=== PATIENT | female | born 1955 | race Caucasian/White ===

== ENCOUNTER 2019-10-19 09:15 | Outpatient (CLI) | payer MEDICARE, MEDICAID, SELFPAY ==
--- NOTE | 2019-10-19 12:00 | NEURO_ITS ---
Patient Number: [id number] Impression: # Complains of numbness of lower extremities and gait dysfunction. # Right peroneal neuropathy. # Decreased amplitude generally. # Needle/EMG exam revealed scarcity of motor unit potentials but no fibrillations. # Clinical correlation recommended; Neuropathic process with superimposed right peroneal neuropathy. Nerve Conduction Studies Anti Sensory Summary Table Stim Site NR Peak (ms) P-T Amp (?V) Site1 Site2 Delta-P (ms) Dist (cm) Nakul (m/s) Left Sup Fibular Anti Sensory (Ant Lat Mall) 14 cm 3.8 4.2 14 cm Ant Lat Mall 3.8 16.0 42 Right Sup Fibular Anti Sensory (Ant Lat Mall) 14 cm 4.2 14.3 14 cm Ant Lat Mall 4.2 16.0 38 Left Sural Anti Sensory (Lat Mall) Calf 4.5 2.4 Calf Lat Mall 4.5 16.0 36 Right Sural Anti Sensory (Lat Mall) Calf 4.4 11.9 Calf Lat Mall 4.4 16.0 36 Motor Summary Table Stim Site NR Onset (ms) O-P Amp (mV) Site1 Site2 Delta-0 (ms) Dist (cm) Nakul (m/s) Left Peroneal Motor (Vastus Med) Ankle 4.8 0.6 Popit Ankle 5.0 31.0 62 Popit 9.8 0.9 Right Peroneal Motor (Vastus Med) NO RESPONSE Ankle NR Popit NR Left Tibial Motor (Abd Hoff Brev) Ankle 4.8 0.2 Knee Ankle 7.6 34.0 45 Knee 12.4 0.3 Right Tibial Motor (Abd Hfof Brev) Ankle 5.1 0.7 Knee Ankle 6.6 35.0 53 Knee 11.7 4.1 F Wave Studies NR F-Lat (ms) L-R F-Lat (ms) Left Peroneal (Mrkrs) (EDB) 48.62 Right Peroneal (Mrkrs) (EDB) DISPERSED RESPONSE NR Left Tibial (Mrkrs) (Abd Hallucis) 48.83 1.17 Right Tibial (Mrkrs) (Abd Hallucis) 47.66 1.17 EMG Side Muscle Nerve Root Ins Act Fibs Amp Dur Recrt Comment Right AntTibialis Dp Br Fibular L4-5 Nml Nml Nml Nml Reduced Right Gastroc Tibial S1-2 Nml Nml Nml Nml Reduced Right Fibularis Long Sup Br Fibular L5-S1 Nml Nml Nml Nml Reduced Right Flex Dig Long Tibial L5-S2 Nml Nml Nml Nml Reduced Right Ext Dig Brev Dp Br Fibular L5, S1 Nml Nml Nml >12ms Reduced Left AntTibialis Dp Br Fibular L4-5 Nml Nml Nml Nml Reduced Left Gastroc Tibial S1-2 Nml Nml Nml Nml Reduced Left Fibularis Long Sup Br Fibular L5-S1 Nml Nml Nml Nml Reduced Left Flex Dig Long Tibial L5-S2 Nml Nml Nml Nml Reduced Left Ext Dig Brev Dp Br Fibular L5, S1 Nml Nml Nml >12ms Reduced Right QuadratusFem QuadFemoris L4-5, S1 Nml Nml Nml Nml Reduced Left QuadratusFem QuadFemoris L4-5, S1 Nml Nml Nml Nml Reduced MTDD
== END 2019-10-19 09:16 | disposition home or self-care (01) ==
PROVIDERS: PCP Internal Medicine Infectious Disease; Visit Provider Internal Medicine Infectious Disease
DX: G62.9 Polyneuropathy, unspecified (principal)
CPT/HCPCS: 95886; 95910

== ENCOUNTER 2021-01-18 02:11 | Day surgery (SDC) | payer MEDICARE, MEDICAID, SELFPAY ==
[2021-01-04 14:10] VITALS: BMI 53.8
--- NOTE | 2021-01-17 14:22 | PM.HPGS ---
History of Present Illness History of Present Illness Consent: Risks, benefits, and alternatives have been discussed and questions answered. Patient agrees to proceed with procedure. Chief complaint: hx of colon polyps Narrative: Daniel Rivera is a 65 year old female with a history of polyps here for colon cancer screening Review of Systems Review of Systems: All systems reviewed & are unremarkable except as noted in HPI and below PMFSH Past Medical History Medical History (Updated 01/18/21 @ 10:47 by Lew Santos MD) ESRD (end stage renal disease) Morbid obesity KELTON (obstructive sleep apnea) Family History Family History Other Diabetes mellitus Social History Social History Smoking packs per day: 3 Smoking cigarettes per day: 60.0 Years smoked: 20 Smoking pack-years: 60.00 Smoking status: Former smoker Tobacco type: cigarettes Alcohol intake: current Alcohol use details: socially Substance use: never Substance use type: does not use Living arrangements: with family Spiritual care concerns: No Meds Home Medications and Allergies Home Medications Medication Instructions Recorded Confirmed Type B complex with C 20-folic acid 1 cap PO DAILY 01/04/21 01/18/21 History [Virt-Caps] allopurinol 100 mg PO DAILY 01/04/21 01/18/21 History atorvastatin 80 mg PO DAILY 01/04/21 01/18/21 History cinacalcet [Sensipar] 30 mg PO DAILY 01/04/21 01/18/21 History duloxetine 30 mg PO DAILY 01/04/21 01/18/21 History escitalopram oxalate 10 mg PO DAILY 01/04/21 01/18/21 History meloxicam 7.5 mg PO DAILY 01/04/21 01/18/21 History metoprolol tartrate 25 mg PO DAILY 01/04/21 01/18/21 History midodrine 10 mg PO DAILY 01/04/21 01/18/21 History omeprazole 20 mg PO DAILY 01/04/21 01/18/21 History sevelamer carbonate 800 mg PO DAILY 01/04/21 01/18/21 History Allergies Allergy/AdvReac Type Severity Reaction Status Date / Time Sulfa (Sulfonamide Allergy Mild HIVES Verified 01/18/21 09:49 Antibiotics) ciprofloxacin Allergy Unknown Hives Verified 01/18/21 09:49 Penicillins Allergy Unknown Unknown Verified 01/18/21 09:49 Exam Const: Nutritional Appearance: obese Resp: Auscultation: clear to auscultation bilaterally Cardio: Rhythm: regular rhythm GI: Inspection: obesity GI Palp: No abdominal tenderness and Yes Soft to palpation Auscultation: normal bowel sounds Assessment and Plan Assessment and plan (1) Colon cancer screening: Code(s): Z12.11 - Encounter for screening for malignant neoplasm of colon Status: Acute Assessment and Plan: Colonoscopy with possible biopsy or polypectomy or cautery or injection of substances.
[2021-01-18 09:42] VITALS: BP 149/60; PULSE 87; RESP 20; TEMP 36.5; O2SAT 96; BMI 50.9
--- NOTE | 2021-01-18 09:53 | SUR.PREOP ---
CALL PLACED TO TYLER/CUSTODIAL SERVICES MANAGER PER PATIENT REQUEST. TYLER NOTIFIED-[id number] MINUTES. PT MADE AWARE.
[2021-01-18] MEDS: SODIUM CHLORIDE 0.9% IV 500 ML 10 ML IV CONT (10:46)
--- NOTE | 2021-01-18 10:46 | WPDANESEPPF ---
Anes - Initial Pre Proc Eval Procedure: Operation Date: 01/18/21 11:00 Proposed Procedures p Screening Colonoscopy - Vic Choi MD Date/Time: 01/18/21 10:46 Surgeon: Vic Choi MD Pre Op Diagnosis: hx of colon polyps Patient Data Age: 65 Gender: F Height: 1.42 m Weight: 103 kg Last Vital Signs Temp 36.5 C 01/18/21 09:42 Pulse 87 01/18/21 09:42 Resp 20 01/18/21 09:42 BP 149/60 H 01/18/21 09:42 Pulse Ox 96 01/18/21 09:42 Allergies Allergy/AdvReac Type Severity Reaction Status Date / Time Sulfa (Sulfonamide Allergy Mild HIVES Verified 01/18/21 09:49 Antibiotics) ciprofloxacin Allergy Unknown Hives Verified 01/18/21 09:49 Penicillins Allergy Unknown Unknown Verified 01/18/21 09:49 Home Medications Medication Instructions Recorded Confirmed Type B complex with C 20-folic acid 1 cap PO DAILY 01/04/21 01/18/21 History [Virt-Caps] allopurinol 100 mg PO DAILY 01/04/21 01/18/21 History atorvastatin 80 mg PO DAILY 01/04/21 01/18/21 History cinacalcet [Sensipar] 30 mg PO DAILY 01/04/21 01/18/21 History duloxetine 30 mg PO DAILY 01/04/21 01/18/21 History escitalopram oxalate 10 mg PO DAILY 01/04/21 01/18/21 History meloxicam 7.5 mg PO DAILY 01/04/21 01/18/21 History metoprolol tartrate 25 mg PO DAILY 01/04/21 01/18/21 History midodrine 10 mg PO DAILY 01/04/21 01/18/21 History omeprazole 20 mg PO DAILY 01/04/21 01/18/21 History sevelamer carbonate 800 mg PO DAILY 01/04/21 01/18/21 History Patient hx anesthesia problems: none Family hx anesthesia problems: none PMFSH Past Medical History Medical History (Updated 01/18/21 @ 10:47 by Lew Santos MD) ESRD (end stage renal disease) Morbid obesity KELTON (obstructive sleep apnea) Family History Family History Other Diabetes mellitus Social History Social History Smoking packs per day: 3 Smoking cigarettes per day: 60.0 Years smoked: 20 Smoking pack-years: 60.00 Smoking status: Former smoker Tobacco type: cigarettes Alcohol intake: current Alcohol use details: socially Substance use: never Substance use type: does not use Living arrangements: with family Spiritual care concerns: No Anes - Eval Final PreProcedure Day of Procedure 01/18/21 10:46 Patient weight: morbidly obese Heart: regular rate and rhythm Lungs: clear to auscultation Airway: Mallampati scale class III Neurological: alert and oriented Last oral intake: >/= 8 hours ASA classification: IV Emergent: no Anesthetic plan: proceed Anesthesia type and monitoring: general GIVS and standard monitoring Informed Consent: The patient's anesthetic plan and its attendant risks and benefits were discussed with the patient/family/POA. Questions were solicited and answers provided to the satisfaction of the patient/family/POA.
[2021-01-18 11:27] VITALS: BP 104/51; PULSE 83; RESP 20; O2SAT 100
[2021-01-18 11:37] VITALS: BP 120/62; PULSE 81; RESP 19; O2SAT 100
[2021-01-18 11:47] VITALS: BP 120/62; PULSE 80; RESP 19; O2SAT 100
== END 2021-01-18 11:56 | disposition home or self-care (01) ==
PROVIDERS: PCP Internal Medicine Infectious Disease; Visit Provider Internal Medicine Gastroenterology
PROC: 0DJD8ZZ Inspection of Lower Intestinal Tract, Via Natural or Artificial Opening Endoscopic (ICD-10-PCS; CPT 45378; principal; 2021-01-18 11:00)
DX: Z12.11 Encounter for screening for malignant neoplasm of colon (principal); K64.8 Other hemorrhoids; Z86.010 Personal history of colon polyps; N18.6 End stage renal disease; G47.33 Obstructive sleep apnea (adult) (pediatric); E66.01 Morbid (severe) obesity due to excess calories; Z68.43 Body mass index [BMI] 50.0-59.9, adult; Z87.891 Personal history of nicotine dependence
CPT/HCPCS: G0105; J2704; J7040

== ENCOUNTER 2021-06-08 15:33 | Emergency (ER) | payer MEDICARE, MEDICAID, SELFPAY ==
[2021-06-08] VITALS (7 sets, daily range): BP systolic 72–102; BP diastolic 31–66; PULSE 95–178; RESP 20–22; TEMP 37; O2SAT 95–100
--- NOTE | ~2021-06-08 | XR_ITS ---
EXAMINATION: XR chest 1V portable EXAM DATE: 06/08/2021 16:41 INDICATION: chest pain, Increased Hr Today Hx SVT,ESRD, tachycardia. TECHNIQUE: Portable AP frontal chest x-ray was obtained. Comparison is made to prior examination from 11/08/2017. FINDINGS: Bilateral subclavian stents. Cardiomegaly and pulmonary vascular congestion unchanged. No c onfluent consolidation, pneumothorax or pleural effusion suspected. There are no osseous abnormalitie s identified. IMPRESSION: 1. Cardiomegaly, pulmonary vascular congestion. Reviewed, dictated and finalized at location A. TICAL SCIENCE PROFESSOR
--- NOTE | 2021-06-08 15:50 | ECG_ITS ---
Measurements Intervals [place] Rate: 95 P: 22 VT: 160 QRS: 34 QRSD: 92 T: 36 QT: 335 QTc: 422 Interpretive Statements SINUS RHYTHM WITH SINUS ARRHYTHMIA INCOMPLETE RIGHT BUNDLE BRANCH BLOCK BORDERLINE ECG Electronically Signed On 06-08-2021 17:35:25 DOT NET DEVELOPER by Drew Maldonado D.O.
--- NOTE | 2021-06-08 15:52 | ED.ARRPALP ---
HPI - Arrhythmia/Palpitations General Chief Complaint: Arrhythmia/Palpitations Stated Complaint: Chest pain Time Seen by Provider: 06/08/21 15:50 Source: patient and family Mode of arrival: ambulatory Limitations: no limitations History of Present Illness HPI narrative: Patient presents with chest pain and difficulty breathing that started 1 hour prior to arrival to the emergency room. EKG showed SVT at 176 bpm. Patient is fully vaccinated for COVID-19, did not have the booster dose yet Related Data Home Medications Medication Instructions Recorded Confirmed Virt-Caps 1 cap PO DAILY 01/04/21 01/18/21 allopurinol 100 mg PO DAILY 01/04/21 01/18/21 atorvastatin 80 mg PO DAILY 01/04/21 01/18/21 cinacalcet [Sensipar] 30 mg PO DAILY 01/04/21 01/18/21 duloxetine 30 mg PO DAILY 01/04/21 01/18/21 escitalopram oxalate 10 mg PO DAILY 01/04/21 01/18/21 meloxicam 7.5 mg PO DAILY 01/04/21 01/18/21 metoprolol tartrate 25 mg PO DAILY 01/04/21 01/18/21 midodrine 10 mg PO DAILY 01/04/21 01/18/21 omeprazole 20 mg PO DAILY 01/04/21 01/18/21 sevelamer carbonate 800 mg PO DAILY 01/04/21 01/18/21 Allergies Allergy/AdvReac Type Severity Reaction Status Date / Time Sulfa (Sulfonamide Allergy Mild HIVES Verified 01/18/21 09:49 Antibiotics) ciprofloxacin Allergy Unknown Hives Verified 01/18/21 09:49 Penicillins Allergy Unknown Unknown Verified 01/18/21 09:49 Review of Systems Review of Systems: CONSTITUTIONAL: Denies fever, chills, or sweats. EYES: Denies visual changes, redness, or discharge. ENT: Denies rhinorrhea, congestion, sore throat, or otalgia. CARDIOVASCULAR: Denies chest pain, palpitations, or edema. RESPIRATORY: Denies cough or dyspnea. GASTROINTESTINAL: Denies abdominal pain, nausea, vomiting, or diarrhea. GENITOURINARY: Denies dysuria or hematuria. SKIN: Denies rash or itching. MUSCULOSKELETAL: Denies back pain, joint pain, or myalgia. NEUROLOGIC: Denies headache, numbness, or weakness. PSYCHIATRIC: Denies anxiety or depression. PMFSH Past Medical History Medical History ESRD (end stage renal disease) Morbid obesity KELTON (obstructive sleep apnea) Family History Family History Other Diabetes mellitus Social History Social History Smoking packs per day: 3 Smoking cigarettes per day: 60.0 Years smoked: 20 Smoking pack-years: 60.00 Smoking status: Former smoker Tobacco type: cigarettes Alcohol intake: current Alcohol use details: socially Substance use: never Substance use type: does not use Spiritual care concerns: No Exam Narrative: General appearance: Well-developed, well-nourished Skin: Normal color Head: Normocephalic, nontraumatic Eyes: Clear conjunctiva ENT: Oropharynx normal, ears normal, nose normal Neck: Supple, nontender Chest and respiratory: Airway patent, no respiratory distress, no accessory muscle use Heart: Tachycardia Abdomen: Soft, nontender, no organomegaly, quiet bowel sounds Vascular: Normal peripheral pulses, normal capillary refill. Musculoskeletal: Normal range of motion, nontender back Neurologic: Alert and oriented ?3, VET TECH is normal as tested, no gross motor deficit Course Course Emergency Course: Stable resolved. Patient received adenosine 6 mg, 12 mg and another 12 mg without any significant improvement. Subsequently received Lopressor 5 mg IV within 2 to 3 minutes converted to normal sinus rhythm, repeated EKG showed normal sinus rhythm at 76 bpm, possible right ventricular conduction delay Reevaluation(s) Reevaluation #1
[2021-06-08] MEDS: SODIUM CHLORIDE 0.9% IV 250 ML (16:10)
[2021-06-08] MEDS: ADENOSINE IV SOLN 6 MG/2 ML VIAL IV PUSH (16:11)
[2021-06-08] MEDS: ADENOSINE IV SOLN 6 MG/2 ML VIAL 12 MG IV PUSH (16:15)
[2021-06-08] MEDS: METOPROLOL TARTRATE INJ 5 MG/5 ML VIAL (16:20)
[2021-06-08 16:24] LABS: Basophils Absolute Auto 0.1 K/mm3 (0.0-0.1); Basophils Percent Auto 0.5 % (0.2-1.2); Eosinophils Absolute Auto 0.1 K/mm3 (0-0.3); Eosinophils Percent Auto 1.3 % (0-4.4); Hematocrit 35.7 % (37.0-47.0); Hemoglobin 11.6 g/dL (12.0-15.0); Immature Granulocyte Absolute 0.04 K/mm3 (0.00-0.031); Immature Granulocyte Percent A 0.4 % (0-0.5); Lymphocytes Absolute Auto 2.24 K/mm3 (0.9-3.2); Lymphocytes Percent Auto 20.2 % (18.3-44.2); Mean Corpuscular HGB Conc 32.5 g/dl (32-36); Mean Corpuscular Hemoglobin 34.3 pg (26-34); Mean Corpuscular Volume 105.6 fl (80-100); Mean Platelet Volume 9.7 fl (7.4-10.4); Monocytes Percent Auto 8.6 % (2.6-8.5); Neutrophils Absolute Auto 7.7 K/mm3 (1.3-6.7); Platelet Count Result 336 k/mm3 (150-375); Red Blood Count 3.38 M/mm3 (4.2-5.4); Red Cell Distribution Width 13.8 % (11.5-14.5); White Blood Count 11.1 K/mm3 (4.5-10.0)
[2021-06-08] MEDS: diazePAM INJ (*CRX) 10 MG/2 ML SYRINGE (16:24)
--- NOTE | 2021-06-08 16:25 | ECG_ITS ---
Measurements Intervals [place] Rate: 176 P: [place]: 0 QRS: 26 QRSD: 82 T: 45 QT: 256 QTc: 439 Interpretive Statements SUPRAVENTRICULAR TACHYCARDIA INCOMPLETE RIGHT BUNDLE BRANCH BLOCK ABNORMAL ECG Electronically Signed On 06-09-2021 13:27:37 NURSING SERVICES MANAGER by Drew Maldonado D.O.
[2021-06-08 16:36] LABS: INR 0.9; Prothrombin Time 12.4 Seconds (11.1-14.7)
[2021-06-08 16:37] LABS: Partial Thromboplastin Time 25.8 SECONDS (22.3-36.8)
[2021-06-08 16:45] LABS: NT Pro B Type Natriuretic Pept 1570 pg/mL (5-100)
[2021-06-08 16:54] LABS: Alanine Aminotransferase 20 U/L (4-35); Alkaline Phosphatase 322 U/L (38-126); Anion Gap 17 mmol/L (8-16); Aspartate Amino Transferase 37 U/L (14-36); Bilirubin,Total 0.7 mg/dL (0.2-1.3); Blood Urea Nitrogen 26 mg/dL (7-17); Calcium 9.4 mg/dL (8.4-10.2); Carbon Dioxide 28 mmol/L (22-30); Chloride 92 mmol/L (98-107); Estimated Glomerular Filt Rate 7; Glucose 147 mg/dL (65-110); Potassium 5.1 mmol/L (3.4-5.0); Sodium 137 mmol/L (137-145)
[2021-06-08 16:55] LABS: Troponin I < 0.012 ng/mL (0.000-0.034)
== END 2021-06-08 17:15 | disposition left against medical advice (07) ==
PROVIDERS: Emergency Provider Emergency Medicine; PCP Internal Medicine Infectious Disease
DX: I47.1 Supraventricular tachycardia (principal); N18.6 End stage renal disease; Z87.891 Personal history of nicotine dependence; Z99.2 Dependence on renal dialysis
CPT/HCPCS: 36415; 71045; 80053; 83880; 84484; 85025; 85610; 85730; 93005; 96361; 96374; 96375; 99284; J0153; J3360; J7050

== ENCOUNTER 2021-09-27 07:41 | Outpatient (CLI) | payer MEDICARE, MEDICAID, SELFPAY | END 2021-09-27 07:42 | disposition home or self-care (01) | LOC: ANHAUDASC 07:42 | PROVIDERS: PCP Internal Medicine Infectious Disease; Visit Provider Otolaryngology | DX: H91.91 Unspecified hearing loss, right ear (principal) | CPT/HCPCS: 92557; 92567 ==

== ENCOUNTER 2021-10-11 07:40 | Outpatient (RCR) | payer MEDICARE, MEDICAID, SELFPAY | END 2022-01-09 23:59 | disposition home or self-care (01) | LOC: ANHAUDASC 07:40 | PROVIDERS: PCP Internal Medicine Infectious Disease; Visit Provider Otolaryngology | DX: Z46.1 Encounter for fitting and adjustment of hearing aid (principal) | CPT/HCPCS: V5160; V5261 ==

== ENCOUNTER 2021-12-15 19:49 | Emergency (ER) | payer MEDICARE, MEDICAID, SELFPAY ==
--- NOTE | ~2021-12-15 | XR_ITS ---
XR chest 2V 12/15/2021 20:27 Indication: Midsternal chest pain. Procedure: AP and lateral views of the chest Comparison: 06/08/2021 Findings: Mild cardiomegaly. There are bilateral subclavian vascular stents. No focal air space disea se, pulmonary edema, pleural effusion or suspected pneumothorax. There is diffuse idiopathic skeletal hyperostosis (DISH) of the thoracic spine. Impression: 1: No acute cardiopulmonary disease. Reviewed, dictated and finalized at location A. Impression: 1: No acute cardiopulmonary disease.
--- NOTE | 2021-12-15 19:51 | ECG_ITS ---
Measurements Intervals [place] Rate: 105 P: 2 WV: 150 QRS: 24 QRSD: 82 T: 31 QT: 330 QTc: 437 Interpretive Statements SINUS TACHYCARDIA ATRIAL PREMATURE COMPLEX INCOMPLETE RIGHT BUNDLE BRANCH BLOCK LOW QRS VOLTAGE IN PRECORDIAL LEADS BASELINE ARTIFACT- I, II, III, AVR, AVL, V1, V6 BORDERLINE ECG Electronically Signed On 12-15-2021 20:39:32 CDT by Drew Maldonado D.O.
--- NOTE | 2021-12-15 19:54 | ED_ITS ---
HPI - Chest Pain General Chief Complaint: Chest Pain Stated Complaint: chest pain Time Seen by Provider: 12/15/21 19:53 Related Data Home Medications Medication Instructions Recorded Confirmed allopurinol 100 mg tablet 100 mg PO DAILY 01/04/21 09/18/21 atorvastatin 80 mg tablet 80 mg PO DAILY 01/04/21 09/18/21 duloxetine 30 mg capsule,delayed 30 mg PO DAILY 01/04/21 09/18/21 release escitalopram oxalate 10 mg tablet 10 mg PO DAILY 01/04/21 01/18/21 meloxicam 7.5 mg tablet 7.5 mg PO DAILY 01/04/21 09/18/21 metoprolol tartrate 25 mg tablet 25 mg PO DAILY 01/04/21 09/18/21 midodrine 10 mg tablet 10 mg PO DAILY 01/04/21 09/18/21 omeprazole 20 mg capsule,delayed 20 mg PO DAILY 01/04/21 09/18/21 release sevelamer carbonate 800 mg tablet 800 mg PO DAILY 01/04/21 09/18/21 vitamin B complex and vitamin C 1 cap PO DAILY 01/04/21 09/18/21 no.20-folic acid 1 mg capsule (Virt-Caps) aspirin 81 mg tablet,delayed 81 mg PO DAILY 09/18/21 09/18/21 release (Adult Aspirin Regimen) gabapentin 300 mg capsule 300 mg PO DAILY 09/18/21 09/18/21 Allergies Allergy/AdvReac Type Severity Reaction Status Date / Time Sulfa (Sulfonamide Allergy Mild HIVES Verified 09/18/21 10:12 Antibiotics) ciprofloxacin Allergy Unknown Hives Verified 09/18/21 10:12 Penicillins Allergy Unknown Unknown Verified 09/18/21 10:12 [facility] Past Medical History Medical History ESRD (end stage renal disease) Morbid obesity KELTON (obstructive sleep apnea) Family History Family History (Updated 09/18/21 @ 09:54 by Petra Machuca CMA) Father Cancer Hypertension Mother Cancer Other Diabetes mellitus Social History Social History Smoking packs per day: 3 Smoking cigarettes per day: 60.0 Years smoked: 20 Smoking pack-years: 60.00 Smoking status: Current some day smoker Tobacco type: cigarettes Alcohol intake: current Alcohol use details: socially Substance use: never Substance use type: does not use Spiritual care concerns: No Discharge Plan Discharge Prescriptions: No Action aspirin [Adult Aspirin Regimen] 81 mg tablet,delayed release (DR/EC) 81 mg PO DAILY gabapentin 300 mg capsule 300 mg PO DAILY atorvastatin 80 mg tablet 80 mg PO DAILY allopurinol 100 mg tablet 100 mg PO DAILY meloxicam 7.5 mg tablet 7.5 mg PO DAILY omeprazole 20 mg capsule,delayed release(DR/EC) 20 mg PO DAILY Virt-Caps 1 mg capsule 1 cap PO DAILY midodrine 10 mg tablet 10 mg PO DAILY escitalopram oxalate 10 mg tablet 10 mg PO DAILY metoprolol tartrate 25 mg tablet 25 mg PO DAILY duloxetine 30 mg capsule,delayed release(DR/EC) 30 mg PO DAILY sevelamer carbonate 800 mg tablet 800 mg PO DAILY Follow-up/Referrals: Rubio,Dario Jay [Primary Care Provider] -
--- NOTE | 2021-12-15 20:01 | ED.CHESTPAIN ---
HPI - Chest Pain General Chief Complaint: Chest Pain Stated Complaint: chest pain Time Seen by Provider: 12/15/21 19:53 Source: patient History of Present Illness HPI narrative: Patient presents with chest pain and palpitations. Reports symptoms started approximately 10 minutes prior to coming to the emergency room. She felt like her heart rate was racing. Reports similar episodes of A. fib with RVR she has had multiple ablations usually performed at [facility] where her cardiology team is. She has associated chest pain but this is achy, constant, no clear aggravating or relieving factors, no radiation. Prior to today's events she is in usual state of health denies any recent fevers, acute change in cough or shortness of breath denies any nausea vomiting or diarrhea. Related Data Home Medications Medication Instructions Recorded Confirmed allopurinol 100 mg tablet 100 mg PO DAILY 01/04/21 09/18/21 atorvastatin 80 mg tablet 80 mg PO DAILY 01/04/21 09/18/21 duloxetine 30 mg capsule,delayed 30 mg PO DAILY 01/04/21 09/18/21 release escitalopram oxalate 10 mg tablet 10 mg PO DAILY 01/04/21 01/18/21 meloxicam 7.5 mg tablet 7.5 mg PO DAILY 01/04/21 09/18/21 metoprolol tartrate 25 mg tablet 25 mg PO DAILY 01/04/21 09/18/21 midodrine 10 mg tablet 10 mg PO DAILY 01/04/21 09/18/21 omeprazole 20 mg capsule,delayed 20 mg PO DAILY 01/04/21 09/18/21 release sevelamer carbonate 800 mg tablet 800 mg PO DAILY 01/04/21 09/18/21 vitamin B complex and vitamin C 1 cap PO DAILY 01/04/21 09/18/21 no.20-folic acid 1 mg capsule (Virt-Caps) aspirin 81 mg tablet,delayed 81 mg PO DAILY 09/18/21 09/18/21 release (Adult Aspirin Regimen) gabapentin 300 mg capsule 300 mg PO DAILY 09/18/21 09/18/21 cephalexin 500 mg capsule cap 12/15/21 Allergies Allergy/AdvReac Type Severity Reaction Status Date / Time Sulfa (Sulfonamide Allergy Mild HIVES Verified 12/15/21 20:08 Antibiotics) ciprofloxacin Allergy Unknown Hives Verified 12/15/21 20:08 Penicillins Allergy Unknown Unknown Verified 12/15/21 20:08 Review of Systems Review of Systems: CONSTITUTIONAL: Denies fever, chills, or sweats. EYES: Denies visual changes, redness, or discharge. ENT: Denies rhinorrhea, congestion, sore throat, or otalgia. CARDIOVASCULAR: Reports chest pain and palpitations RESPIRATORY: Denies cough or acute change in dyspnea. GASTROINTESTINAL: Denies abdominal pain, nausea, vomiting, or diarrhea. GENITOURINARY: Denies dysuria or hematuria. SKIN: Denies rash or itching. MUSCULOSKELETAL: Denies back pain, joint pain, or myalgia. NEUROLOGIC: Denies headache, numbness, dizziness, or weakness. PSYCHIATRIC: Denies anxiety or depression. All systems reviewed & are unremarkable except as noted in HPI and below PMFSH Past Medical History Medical History ESRD (end stage renal disease) Morbid obesity KELTON (obstructive sleep apnea) Family History Family History Father Cancer Hypertension Mother Cancer Other Diabetes mellitus Social History Social History Smoking packs per day: 3 Smoking cigarettes per day: 60.0 Years smoked: 20 Smoking pack-years: 60.00 Smoking status: Current some day smoker Tobacco type: cigarettes Alcohol intake: current Alcohol use details: socially Substance use: never Substance use type: does not use Spiritual care concerns: No Exam Narrative: GENERAL: Well-appearing, well-nourished, and in no acute distress. HEAD: Normocephalic, atraumatic. EYES: PERRLA and EOMI. ENT: Nares clear, no rhinorrhea or epistaxis. Mucous membranes moist. NECK: Supple. No masses. No JVD CHEST: Mild wheezing and rhonchi HEART: Regular r tachycardia. No murmur heard. Normal peripheral pulses. ABDOMEN: Soft, nontender, nondistended, normal active bowel sound
[2021-12-15 20:04] VITALS: BP 125/52; PULSE 103; RESP 20; TEMP 36.9; O2SAT 98
[2021-12-15 20:12] VITALS: PULSE 101
[2021-12-15 20:28] LABS: Alanine Aminotransferase 27 U/L (6-35); Albumin Level 4.6 g/dL (3.5-5.1); Alkaline Phosphatase 334 U/L (38-126); Anion Gap 11 mmol/L (8-16); Aspartate Amino Transferase 31 U/L (14-36); Bilirubin,Total 0.4 mg/dL (0.2-1.3); Blood Urea Nitrogen 73 mg/dL (7-17); Calcium 8.7 mg/dL (8.4-10.2); Carbon Dioxide 32 mmol/L (22-30); Chloride 93 mmol/L (98-107); Estimated Glomerular Filt Rate 5; Glucose 161 mg/dL (65-110); Lipase 256 U/L (23-300); Potassium 4.9 mmol/L (3.4-5.0); Sodium 136 mmol/L (137-145)
[2021-12-15 20:30] LABS: Basophils Absolute Auto 0.1 K/mm3 (0.0-0.1); Basophils Percent Auto 0.7 % (0.2-1.2); Eosinophils Absolute Auto 0.2 K/mm3 (0-0.3); Eosinophils Percent Auto 1.7 % (0-4.4); Hematocrit 30.6 % (37.0-47.0); Hemoglobin 10.1 g/dL (12.0-15.0); Immature Granulocyte Absolute 0.03 K/mm3 (0.00-0.031); Immature Granulocyte Percent A 0.3 % (0-0.5); Lymphocytes Absolute Auto 1.81 K/mm3 (0.9-3.2); Lymphocytes Percent Auto 20.1 % (18.3-44.2); Mean Corpuscular Hemoglobin 33.9 pg (26-34); Mean Corpuscular Volume 102.7 fl (80-100); Monocytes Percent Auto 11.4 % (2.6-8.5); Neutrophils Absolute Auto 5.9 K/mm3 (1.3-6.7); Neutrophils Percent Auto 65.8 % (45.5-73.1); Platelet Count Result 201 k/mm3 (150-375); Red Blood Count 2.98 M/mm3 (4.2-5.4); Red Cell Distribution Width 14.9 % (11.5-14.5)
[2021-12-15 20:33] LABS: INR 1.3; Prothrombin Time 15.2 Seconds (11.1-14.7)
[2021-12-15 20:34] LABS: Partial Thromboplastin Time 29.1 SECONDS (22.3-36.8)
[2021-12-15 20:40] LABS: Troponin I 0.028 ng/mL (0.000-0.034)
[2021-12-15] MEDS: SODIUM CHLORIDE 0.9% IV 500 ML 999 ML IV CONT (21:22)
--- NOTE | 2021-12-15 23:14 | PC.NURSE ---
Assuming care of pt.
[2021-12-15 23:50] VITALS: BP 125/78; PULSE 97; RESP 18; O2SAT 100
== END 2021-12-15 23:51 | disposition home or self-care (01) ==
PROVIDERS: Emergency Provider Emergency Medicine; PCP Internal Medicine Infectious Disease
DX: R00.2 Palpitations (principal); R07.9 Chest pain, unspecified; N18.6 End stage renal disease; G47.33 Obstructive sleep apnea (adult) (pediatric); E66.01 Morbid (severe) obesity due to excess calories; Z68.43 Body mass index [BMI] 50.0-59.9, adult; F17.210 Nicotine dependence, cigarettes, uncomplicated; R00.0 Tachycardia, unspecified; I49.1 Atrial premature depolarization; I45.10 Unspecified right bundle-branch block
CPT/HCPCS: 36415; 71046; 80053; 83690; 84484; 85025; 85610; 85730; 93005; 96360; 99284; J7040

== ENCOUNTER 2023-05-05 05:28 | Inpatient (IN) | payer MEDICARE, MEDICAID, SELFPAY ==
[2023-05-05] VITALS (39 sets, daily range): BP systolic 89–148; BP diastolic 21–133; PULSE 73–125; RESP 14–32; TEMP 36–37; O2SAT 84–98; BMI 48.4; BMI 47.9
--- NOTE | ~2023-05-05 | XR_ITS ---
XR chest 1V portable 05/05/2023 09:21 Indication: Hypoxia. Procedure: AP portable chest Comparison: Comparison to multiple prior studies sequentially, with oldest reviewed study dated 02/2022. Findings: Cardiomegaly. Mild interstitial edema. No pleural effusion or pneumothorax. Bilateral subcl braden stents stable. New right subclavian stent overlying the scapula. No acute osseous abnormality. Impression: 1: Cardiomegaly with mild interstitial edema. Reviewed, dictated and finalized at location B. ASSISTANT Impression: 1: Cardiomegaly with mild interstitial edema.
--- NOTE | ~2023-05-05 | CT_ITS ---
Non-contrast CT scan of the Abdomen and Pelvis Clinical indication: Abdominal pain Technique: 2.5 mm axial scans were obtained through the abdomen and pelvis without intravenous or or al contrast. Dose reduction technique was used on this scan by utilizing automated exposure control a nd iterative reconstruction technique. The dose-length product (DLP) was 1181.84 mGy-cm. Findings: Images through the lung bases reveal no abnormalities. The liver, spleen, pancreas, and adrenals appear normal. Cholecystectomy clips are present. Kidneys a re relatively atrophic bilaterally, with small bilateral nonobstructing renal stones. No hydronephros is. There are atherosclerotic calcifications of the aorta. There is no evidence of bowel obstruction. There is a prior surgery to right colonic region. No absce ss or free air. Images through the pelvis were performed. There is no evidence of ascites or lymphadenopathy. Urinary bladder unremarkable. No pelvic mass seen. Impression: Bilateral nonobstructing nephrolithiasis with relatively atrophic kidneys. No other significant findings. Reviewed, dictated and finalized at [facility]. LE SCHOOL DIRECTOR Impression: Bilateral nonobstructing nephrolithiasis with relatively atrophic kidneys. No other significant findings.
--- NOTE | 2023-05-05 05:37 | ECG_ITS ---
Measurements Intervals [place] Rate: 83 P: 35 DC: 248 QRS: -51 QRSD: 133 T: 52 QT: 386 QTc: 455 Interpretive Statements SINUS RHYTHM WITH FIRST DEGREE AV BLOCK LEFT AXIS DEVIATION INTRAVENTRICULAR CONDUCTION DELAY POOR R WAVE PROGRESSION, ANTERIOR LEADS CONSIDER INFERIOR INFARCT, AGE INDETERMINATE ABNORMAL ECG COMPARED TO ECG 05/05/2023 05:37:08 NO SIGNIFICANT CHANGES Electronically Signed On 05-05-2023 9:57:09 SUPERVISOR OF OPERATIONS by Drew Maldonado D.O.
--- NOTE | 2023-05-05 06:15 | ED.GENADULT ---
HPI - General Adult General Chief complaint: Weakness <Derik Hernandez MD - Last Filed: 05/05/23 06:26> Stated complaint: diarrhea yest, weak today, missed dialysis <Derik Hernandez MD - Last Filed: 05/05/23 06:26> Time Seen by Provider: 05/05/23 05:37 <Derik Hernandez MD - Last Filed: 05/05/23 06:26> History of Present Illness HPI narrative: patient is a 68-year-old female who presents emerged department with chief complaint of generalized weakness. Patient reports he has history of end-stage renal disease on dialysis Friday reports that she started having diarrhea yesterday and started feeling very weak the patient reports that today she was unable to get up and walk to her [employer] transport van to go to her dialysis and her dialysis transport individual recommended that she seen the patient reports that called EMS and was transported to the emergency department patient does state that she has had some <Derik Hernandez MD - Last Filed: 05/05/23 06:26> Related Data Home medications: Home Medications Medication Instructions Recorded Confirmed allopurinol 100 mg tablet 100 mg PO DAILY 01/04/21 09/18/21 atorvastatin 80 mg tablet 80 mg PO DAILY 01/04/21 09/18/21 duloxetine 30 mg capsule,delayed 30 mg PO DAILY 01/04/21 09/18/21 release escitalopram oxalate 10 mg tablet 10 mg PO DAILY 01/04/21 01/18/21 meloxicam 7.5 mg tablet 7.5 mg PO DAILY 01/04/21 09/18/21 metoprolol tartrate 25 mg tablet 25 mg PO DAILY 01/04/21 09/18/21 midodrine 10 mg tablet 10 mg PO DAILY 01/04/21 09/18/21 omeprazole 20 mg capsule,delayed 20 mg PO DAILY 01/04/21 09/18/21 release sevelamer carbonate 800 mg tablet 800 mg PO DAILY 01/04/21 09/18/21 vitamin B complex and vitamin C 1 cap PO DAILY 01/04/21 09/18/21 no.20-folic acid 1 mg capsule (Virt-Caps) aspirin 81 mg tablet,delayed 81 mg PO DAILY 09/18/21 09/18/21 release (Adult Aspirin Regimen) gabapentin 300 mg capsule 300 mg PO DAILY 09/18/21 09/18/21 cephalexin 500 mg capsule cap 12/15/21 <Derik Hernandez MD - Last Filed: 05/05/23 06:26> Allergies/adverse reactions: Allergies Allergy/AdvReac Type Severity Reaction Status Date / Time Sulfa (Sulfonamide Allergy Mild HIVES Verified 05/05/23 05:42 Antibiotics) ciprofloxacin Allergy Unknown Hives Verified 05/05/23 05:42 Penicillins Allergy Unknown Unknown Verified 05/05/23 05:42 <Derik Hernandez MD - Last Filed: 05/05/23 06:26> Review of Systems Review of Systems: A 10 system review of systems was completed on the patient and is negative except for what is stated in the HPI. Nursing and ancillary documentation was reviewed. <Derik Hernandez MD - Last Filed: 05/05/23 06:26> PMFSH Past Medical History Medical History: Medical History ESRD (end stage renal disease) Morbid obesity KEL[place] (obstructive sleep apnea) <Derik Hernandez MD - Last Filed: 05/05/23 06:26> Family History Family History: Family History Father Cancer Hypertension Mother Cancer Other Diabetes mellitus <Derik Hernandez MD - Last Filed: 05/05/23 06:26> Social History Social History: Social History Smoking packs per day: 3 Smoking cigarettes per day: 60.0 Years smoked: 20 Smoking pack-years: 60.00 Smoking status: Current some day smoker Tobacco type: cigarettes Alcohol intake: current Alcohol use details: socially Substance use: never Substance use type: does not use Living arrangements: with family Spiritual care concerns: No <Derik Hernandez MD - Last Filed: 05/05/23 06:26> Exam Narrative: GENERAL: Well-appearing, well-nourished, and in no acute distress. HEAD: Normocephali
[2023-05-05 06:16] LABS: Basophils Percent Auto 0.3 % (0.2-1.2); Eosinophils Absolute Auto 0.3 K/mm3 (0-0.3); Eosinophils Percent Auto 2.1 % (0-4.4); Hemoglobin 11.9 g/dL (12.0-15.0); Immature Granulocyte Absolute 0.05 K/mm3 (0.00-0.031); Immature Granulocyte Percent A 0.4 % (0-0.5); Lymphocytes Absolute Auto 1.54 K/mm3 (0.9-3.2); Lymphocytes Percent Auto 11.8 % (18.3-44.2); Mean Corpuscular HGB Conc 33.1 g/dl (32-36); Mean Corpuscular Hemoglobin 32.7 pg (26-34); Mean Corpuscular Volume 98.9 fl (80-100); Mean Platelet Volume 9.9 fl (7.4-10.4); Monocytes Percent Auto 7.4 % (2.6-8.5); Neutrophils Absolute Auto 10.2 K/mm3 (1.3-6.7); Platelet Count Result 296 k/mm3 (150-375); Red Blood Count 3.64 M/mm3 (4.2-5.4); Red Cell Distribution Width 15.6 % (11.5-14.5); White Blood Count 13.1 K/mm3 (4.5-10.0)
[2023-05-05 06:40] LABS: Lactic Acid Reflex 2.1 mmol/L (0.7-2.0)
[2023-05-05 06:57] LABS: INR 0.9; Prothrombin Time 12.7 Seconds (11.1-14.7)
[2023-05-05 07:15] LABS: INR 0.9; Prothrombin Time 12.6 Seconds (11.1-14.7)
[2023-05-05 07:16] LABS: Partial Thromboplastin Time 27.2 SECONDS (22.3-36.8)
[2023-05-05] MEDS: SODIUM CHLORIDE 0.9% IV 500 ML 999 ML IV CONT (07:37)
[2023-05-05 08:05] LABS: Alanine Aminotransferase 24 U/L (6-35); Albumin Level 4.3 g/dL (3.5-5.1); Alkaline Phosphatase 360 U/L (38-126); Anion Gap 16 mmol/L (8-16); Aspartate Amino Transferase 36 U/L (14-36); Bilirubin,Total 0.8 mg/dL (0.2-1.3); Blood Urea Nitrogen 74 mg/dL (7-17); Calcium 10.3 mg/dL (8.4-10.2); Carbon Dioxide 26 mmol/L (22-30); Chloride 91 mmol/L (98-107); Estimated Glomerular Filt Rate 3; Glucose 97 mg/dL (65-110); Lipase 143 U/L (23-300)
[2023-05-05 08:08] LABS: Sodium 133 mmol/L (137-145)
[2023-05-05 08:09] LABS: Potassium 8.1 mmol/L (3.4-5.0)
[2023-05-05 08:17] LABS: Troponin I 0.086 ng/mL (0.000-0.034)
[2023-05-05] MEDS: SODIUM BICARBONATE 8.4% 50 MEQ/50 ML SYRINGE IV PUSH (08:29)
[2023-05-05] MEDS: SODIUM POLYSTYRENE SULFONONATE 15 GM/60 ML BTL 30 GM PO (08:29)
[2023-05-05] MEDS: INSULIN HUMAN REGULAR (*BKC) 100 UNITS/ML IV PUSH (08:29)
[2023-05-05] MEDS: DEXTROSE 50% 25 GM/50 ML SYRINGE IV PUSH (08:29)
--- NOTE | 2023-05-05 08:29 | ECG_ITS ---
Measurements Intervals [place] Rate: 77 P: 9 W[place]: 192 QRS: -38 QRSD: 133 T: 48 QT: 379 QTc: 431 Interpretive Statements SINUS RHYTHM WITH FIRST DEGREE AV BLOCK LEFT AXIS DEVIATION INTRAVENTRICULAR CONDUCTION DELAY POOR R WAVE PROGRESSION, ANTERIOR LEADS CONSIDER INFERIOR INFARCT, AGE INDETERMINATE BASELINE ARTIFACT- I, II, AVR ABNORMAL ECG COMPARED TO ECG 12/15/2021 20:01:06 SINUS RHYTHM NOW PRESENT LEFT-AXIS DEVIATION NOW PRESENT INTRAVENTRICULAR CONDUCTION DELAY NOW PRESENT Electronically Signed On 05-05-2023 8:32:20 PRESCHOOL HEAD TEACHER by Drew Maldonado D.O.
--- NOTE | 2023-05-05 08:47 | PC.NURSE ---
Pt complaining of 7/10 chest pain. aware.
[2023-05-05] MEDS: MORPHINE SULFATE (*CRX) 2 MG/ML INJ IV PUSH (08:51)
[2023-05-05] MEDS: ALBUTEROL SULFATE NEB 2.5 MG/3 ML INH 5 MG INHALATION (09:00)
[2023-05-05 09:32] LABS: Reflex Lactic Acid Yes or No Add Lactic
[2023-05-05 09:54] LABS: Lactic Acid 1.5 mmol/L (0.7-2.0)
[2023-05-05 10:00] LABS: Anion Gap 16 mmol/L (8-16); Blood Urea Nitrogen 75 mg/dL (7-17); Calcium 10.1 mg/dL (8.4-10.2); Carbon Dioxide 27 mmol/L (22-30); Chloride 92 mmol/L (98-107); Estimated Glomerular Filt Rate 4; Glucose 103 mg/dL (65-110); Potassium 7.1 mmol/L (3.4-5.0); Sodium 135 mmol/L (137-145)
[2023-05-05 10:09] LABS: Troponin I 0.115 ng/mL (0.000-0.034)
[2023-05-05 10:38] LABS: Hepatitis B Surface Anti Res Positive
[2023-05-05] MEDS: ALBUMIN HUMAN 25% 12.5 GM/50ML 50 ML IVPB ×2 (10:46→12:37)
--- NOTE | 2023-05-05 10:50 | PM.CNNEP ---
Assessment and Plan Assessment and plan (1) End stage renal disease: Code(s): N18.6 - End stage renal disease Status: Chronic Assessment and Plan: HD today continue Fri/Fri/Friday outpatient dialysis schedule follow electrolytes, volume status, and clearance (2) Hyperkalemia: Code(s): E87.5 - Hyperkalemia Status: Acute Assessment and Plan: s/p medical management dialysis today follow repeat K+ levels not a usual problem for the patient from discussion with outpatient dialysis unit (3) Elevated troponin: Code(s): R79.89 - Other specified abnormal findings of blood chemistry Status: Acute Assessment and Plan: noted since admission no complaints of chest pain EKG noted check Echo consider Cardiology consultation (4) Generalized weakness: Code(s): R53.1 - Weakness Status: Acute Assessment and Plan: suspect due to a combo of high K+ and possible viral illness follow-up on viral testing supportive care (5) Obstructive sleep apnea: Code(s): G47.33 - Obstructive sleep apnea (adult) (pediatric) Status: Acute Assessment and Plan: continue CPAP use (6) Anemia: Code(s): D64.9 - Anemia, unspecified Status: Chronic Assessment and Plan: due to ESRD Epogen with HD follow H/H I will continue to follow the patient with you while she remains hospitalized and make further recommendations as needed. Thank you for allowing me to participate in the care of this patient. History of Present Illness Reason for Consult Consult date: 05/05/23 Reason for consult: end stage renal disease and hyperkalemia Chief Complaint Chief complaint: Hyperkalemia and Elevated Troponin History of Present Illness Narrative: The patient is a 68-year-old female with a past medical history as outlined below who presented to [facility] Emergency room via EMS for further evaluation of generalized weakness. Following breakfast yesterday, the patient started feeling unwell with abdominal cramping and sudden onset of diarrhea. She apparently had 6-7 stools over the course of the day. Eventually, the symptoms seemed to yanick and she was able to go to sleep but had to wake up several times during the night due to the diarrhea. By the time she folic at up in the morning to go for her scheduled dialysis treatment, she reported feeling extremely weak and lightheaded with associated fatigue and generalized muscle aches and arthritis. When her medical transport car came to take her to dialysis, she could barely get out side due to the severity of her weakness and fatigue. She called EMS and was subsequent transported to the emergency room for further assessment. Workup and evaluation in the emergency room demonstrated the patient to be hemodynamically stable and in no acute distress. She was noted to be hypoxic on room air which improved with application of supplemental oxygen. Routine blood tests were significant for labs consistent with her known history of end-stage renal disease with wrist relative stability of her hemoglobin hematocrit, mildly elevated white blood count of 13.1, but with critical electrolyte abnormality of hyperkalemia with potassium of 8.1. Subsequent CT scan of the abdomen pelvis demonstrated no acute findings and her chest x-ray showed cardiomegaly with mild interstitial edema. She received medical management for her hyperkalemia and was subsequently admitted to the hospital for emergent dialysis. On further discussion with the patient, she has never had issues or problems with severe hyperkalemia and is compliant with her dialysis treatments so she was somewhat surprised by this laboratory finding. Renal consultation was requested due to her end-stage renal disease and hyperkalemia. The patient normally dialyzes on a Friday, Friday, Friday schedule at [facility]. As mentioned a
[2023-05-05 10:59] LABS: Hepatitis B Surface Antigen Negative (Negative)
[2023-05-05 11:53] LABS: Anion Gap 14 mmol/L (8-16); Blood Urea Nitrogen 51 mg/dL (7-17); Calcium 9.8 mg/dL (8.4-10.2); Carbon Dioxide 28 mmol/L (22-30); Chloride 94 mmol/L (98-107); Estimated Glomerular Filt Rate 5; Glucose 100 mg/dL (65-110); Potassium 5.3 mmol/L (3.4-5.0); Sodium 136 mmol/L (137-145)
[2023-05-05] MEDS: ACETAMINOPHEN 325 MG TABLET 650 MG PO ×2 (12:58→20:26)
--- NOTE | 2023-05-05 13:14 | PM.IMHP ---
H&P: HPI History of Present Illness Date/Time: 05/05/23 14:45 Chief Complaint: Weakness. Narrative: This is a 68-year-old female with end stage renal disease on hemodialysis, diet-controlled diabetes, hyperlipidemia, paroxysmal atrial fibrillation status post cardiac ablation, and obstructive sleep apnea who presented to the emergency department via EMS from home for evaluation of weakness. The patient provides the following history. She had oat for breakfast yesterday and within several hours she started to feel unwell with diffuse abdominal cramping and she reports having 6 to 7 loose, yellow stools throughout the evening. She was able to fall sleep at about 21:00 but awoke several times to have diarrhea. This morning she got up early for dialysis and she reports feeling extremely weak and lightheaded with aching pain in both of her shoulders so she sat down on the recliner until the medical car came. She could barely make out side due to weakness and she was instead directed to the emergency department. She was afebrile on arrival with stable blood pressures. SpO2 was as low as 84% and she was started on 5 L nasal cannula. Labs were significant for WBC count of 13.1, hemoglobin 11.9, sodium 133, potassium 8.1 BUN 74, creatinine 10.90, lactic acid 2.1, calcium 10.3, troponin 0.086. CT of the abdomen and pelvis showed no acute findings. Chest x-ray showed cardiomegaly with mild interstitial edema. She was immediately treated for hyperkalemia and she is now status post dialysis. She has never had issues with hyperkalemia and this came as a surprise to her. She is not on potassium supplementations and she has not had any recent change in medications or diet. She has not had exertional chest pain or pleuritic pain. She has mild shortness of breath but that has improved since dialysis. She denies calf pain and lower extremity edema. No vomiting. No melena or hematochezia. She denies sick contacts. Review of Systems Review of Systems: Twelve systems were reviewed. Reports having a low-grade fever. She has had a slight cough which is rarely productive recently. Her throat has been a bit sore when swallowing. She tested negative for COVID, RSV, influenza, and strep today. Except as documented, all other systems were reviewed and are negative. [facility] Past Medical History Medical History (Updated 05/05/23 @ 15:11 by Kami Del Rio PA-C) Anxiety and depression Arthritis Diet-controlled type 2 diabetes mellitus End-stage renal disease on hemodialysis Hypertension Morbid obesity Obstructive sleep apnea Paroxysmal atrial fibrillation Surgical History Surgical History (Updated 05/05/23 @ 15:07 by Kami Del Rio PA-C) History of cardiac radiofrequency ablation History of cataract extraction History of section History of cholecystectomy History of colonoscopy with polypectomy History of hysterectomy History of tonsillectomy Family History Family History Father Cancer Hypertension Mother Cancer Other Diabetes mellitus Social History Social History (Updated 05/05/23 @ 15:08 by Kami Del Rio PA-C) Social History: Surrogate medical decision maker: Zee Monte, sibling. Code status: Full code. Smoking packs per day: 3 Smoking cigarettes per day: 60.0 Years smoked: 25 Smoking pack-years: 75.00 Smoking status: Former smoker Tobacco type: cigarettes Alcohol intake: current Drinks per week: 1 Alcohol use details: Social alcohol use. Substance use: never Substance use type: does not use Lack of Transportation: No Lack of Food: Never True Current Housing: I Have Housing Concerned About Future Housing: No Difficulty Paying Gas/Electric Bills: No Difficulty Paying for Meds: No Currently Unemployed: No Education: Grade School Difficulty w/ Childcare or Family Care: No Living arrangements: with family Spiritua
--- NOTE | 2023-05-05 14:14 | PM.DS ---
DS: Summary Time Spent with Patient Time attestation: Total time spent providing and/or coordinating discharge services: DS: Data Data Completed and Pending Labs on day of discharge: Labs from last 24 hours 05/05/23 05/05/23 05/05/23 11:04 09:35 09:31 WBC RBC Hgb Hct MCV MCH MCHC RDW Plt Count MPV Immature Gran % (Auto) Neut % (Auto) Lymph % (Auto) [place] % (Auto) Eos % (Auto) Baso % (Auto) Lymph # (Auto) [place] # (Auto) Eos # (Auto) Baso # (Auto) Abs Immat Gran (auto) Absolute Neuts (auto) Absolute Nucleated RBC Nucleated RBC % PT INR APTT Sodium 136 L 135 L Potassium 5.3 H 7.1 H* Chloride 94 L 92 L Carbon Dioxide 28 27 Anion Gap 14 16 BUN 51 H D 75 H Creatinine 8.00 H 10.60 H Estim Creat Clear Calc Not Reportable Not Reportable Estimated GFR 5 L 4 L Glucose 100 103 Lactic Acid 1.5 Calcium 9.8 10.1 Magnesium Total Bilirubin AST ALT Alkaline Phosphatase Troponin I 0.115 H* D Total Protein Albumin Lipase Hep Bs Antigen Negative Hep Bs Antibody Positive 05/05/23 05/05/23 05/05/23 06:57 06:09 06:08 WBC 13.1 H RBC 3.64 L Hgb 11.9 L Hct 36.0 L MCV 98.9 MCH 32.7 MCHC 33.1 RDW 15.6 H Plt Count 296 MPV 9.9 Immature Gran % (Auto) 0.4 Neut % (Auto) 78.0 H Lymph % (Auto) 11.8 L [place] % (Auto) 7.4 Eos % (Auto) 2.1 Baso % (Auto) 0.3 Lymph # (Auto) 1.54 [place] # (Auto) 1.0 H Eos # (Auto) 0.3 Baso # (Auto) 0.0 Abs Immat Gran (auto) 0.05 H Absolute Neuts (auto) 10.2 H Absolute Nucleated RBC 0.0 Nucleated RBC % 0.0 PT 12.6 12.7 INR 0.9 0.9 APTT 27.2 Sodium 133 L Potassium 8.1 H* Chloride 91 L Carbon Dioxide 26 Anion Gap 16 BUN 74 H Creatinine 10.90 H Estim Creat Clear Calc Not Reportable Estimated GFR 3 L Glucose 97 Lactic Acid 2.1 H Calcium 10.3 H Magnesium 2.0 Total Bilirubin 0.8 AST 36 ALT 24 Alkaline Phosphatase 360 H Troponin I 0.086 H* Total Protein 8.0 Albumin 4.3 Lipase 143 Hep Bs Antigen Hep Bs Antibody Discharge Plan Discharge Consulting providers: Giovanny Denson Discharge Medications: No Action aspirin [Adult Aspirin Regimen] 81 mg tablet,delayed release (DR/EC) 81 mg PO DAILY gabapentin 300 mg capsule 300 mg PO DAILY atorvastatin 80 mg tablet 80 mg PO DAILY allopurinol 100 mg tablet 100 mg PO DAILY meloxicam 7.5 mg tablet 7.5 mg PO DAILY omeprazole 20 mg capsule,delayed release(DR/EC) 20 mg PO DAILY Virt-Caps 1 mg capsule 1 cap PO DAILY midodrine 10 mg tablet 10 mg PO DAILY escitalopram oxalate 10 mg tablet 10 mg PO DAILY metoprolol tartrate 25 mg tablet 25 mg PO DAILY duloxetine 30 mg capsule,delayed release(DR/EC) 30 mg PO DAILY sevelamer carbonate 800 mg tablet 800 mg PO DAILY cephalexin 500 mg capsule Date of admission: 05/05/23 09:04 Primary Care Provider: Rubio,Pierre Admitting Provider: Haroon Pineda Attending physician on admission: Haroon Pineda Condition: Serious
--- NOTE | 2023-05-05 15:07 | ADMGEN ---
This patient, Daniel Rivera, was admitted to IMU Room 202-01 @ 1430. Patient oriented to hospital policies and general routines including ID bracelet, bed and alarms, visiting hours, pain management, procedures, bathroom and other care routines, personal items, smoking policy, room service/diet, and visiting hours. Information on how to activate the Rapid Response Team has been discussed. Patient are encouraged to report perceived risks to care and to ask questions if they do not understand what they are told or what they should do.
--- NOTE | 2023-05-05 15:11 | ECHO_ITS ---
Patient Info Name: Daniel Rivera Age: 68 years : 1955 Gender: Female Ht: 49 in Wt: 237 lbs BSA: 2.03 m2 HR: 85 bpm BP: 133 / 109 mmHg Heart Rhythm: Sinus Rhythm Technical Quality: Poor Exam Date: 05/05/2023 4:14 PM Exam Location: Echo Lab Patient Status: Outpatient Admit Date: 05/05/2023 Staff Ordering Physician: Kami Del Rio PA-C Milk Truck Driver: Anisha Dias RDCS Attending Provider: Haroon Pineda MD Referring Physician: Quang GREWAL; Exam Type: CA echo dop color flow w con Study Info Indications - elevated troponin, weakness Complete two-dimensional, color flow and Doppler transthoracic echocardiogram is performed with contrast to opacify the left ventricle and to improve the deliniation of the left ventricle endocardial borders. Contrast/Agitated Saline Contrast/Ag. Saline: Definity Amount: 2.00 ml Administered By: Anisha Dias RDCS Existing IV Access: Yes IV Access Condition: patent with no signs of infiltration Summary 1. Technically difficult study with limited views. 2. Left ventricular chamber dimension is normal. 3. Left ventricular systolic function is normal, estimated at >70%. 4. The left ventricular diastolic function is grade I diastolic dysfunction. 5. Right ventricular systolic function is normal. 6. No significant valvular disease. Left Ventricle Left ventricular chamber dimension is normal. Left ventricular systolic function is normal, estimated at >70%. There is no increased left ventricular wall thickness. The left ventricular diastolic function is grade I diastolic dysfunction. Right Ventricle Right ventricular chamber dimension is normal. Right ventricular systolic function is normal. Left Atria Left atrial chamber dimension is normal. Right Atria Right atrial chamber dimension is normal. Aortic Valve The aortic valve is not well visualized. There is no aortic valve stenosis. There is no aortic valve regurgitation. Pulmonic Valve The pulmonic valve is not well visualized. Mitral Valve The mitral valve has not well visualized. There is trace mitral valve regurgitation. Tricuspid Valve There is trace tricuspid valve regurgitation. Pericardium/Pleural The pericardium appears epicardial fat pad. There is no pericardial effusion. Inferior Vena Cava Normal inferior vena cava with >50% collapse upon inspiration consistent with normal right atrial pressure, 3 mmHg. Aorta The aortic root size at the sinus of Valsalva is normal. Left Ventricular Outflow Tract Name Value Normal LVOT 2D LVOT Diameter 1.95 cm LVOT Doppler LVOT Peak Gradient 6 mmHg LVOT Mean Gradient 4 mmHg LVOT VTI 25.12 cm LVOT VTI/AV VTI Ratio 0.56 LVOT Stroke Volume 74.67 ml LVOT CO 6.13 l/min LVOT CI 3.02 L/min/m2 Pulmonic Valve Name Value Normal
[2023-05-05 15:34] LABS: Anion Gap 15 mmol/L (8-16); Blood Urea Nitrogen 28 mg/dL (7-17); Calcium 10.3 mg/dL (8.4-10.2); Carbon Dioxide 28 mmol/L (22-30); Chloride 93 mmol/L (98-107); Estimated Glomerular Filt Rate 8; Glucose 83 mg/dL (65-110); Potassium 4.7 mmol/L (3.4-5.0); Sodium 136 mmol/L (137-145)
[2023-05-05 16:12] LABS: CRP 1.2 mg/dL (<1.0)
[2023-05-05] MEDS: PERFLUTREN LIPID MICROSPHERES 1.5 ML VIAL DILUTED TO 10 ML TOTAL VOLUME IV PUSH (16:46)
--- NOTE | 2023-05-05 17:15 | IVDEFINITY ---
Prior to administration of IV Definity the patient was educated on the risks and benefits of the imaging enhancing agent including potential adverse side effects. The patient verbalized understanding. Allergies were verified. No exclusion criteria were identified and at least one of the following inclusion criteria were met: 1) physician request, 2) patient technically difficult to image (per the [place] [employer] Echocardi[employer] guidelines of two or more segments not discernable within the apical view), or 3) questionable left ventricular function. ?
[2023-05-05] MEDS: SEVELAMER CARBONATE 800 MG TABLET 3200 MG BY MOUTH (17:36)
[2023-05-05 17:49] LABS: Strep Group A RT-PCR NOT DETECTED (Negative)
[2023-05-05 18:00] LABS: Influenza A QL RT-PCR Negative (Negative); Influenza B QL RT-PCR Negative (Negative); RSV RNA, RT-PCR Negative (Negative); SARS-CoV-2 RNA PCR Negative (Negative)
[2023-05-05 19:54] LABS: Procalcitonin 0.5 ng/mL
[2023-05-05] MEDS: HEPARIN SODIUM 5,000 UNITS/ML VIAL 5000 UNITS SUB-Q (20:26)
[2023-05-05 21:42] LABS: Free T4 Free Thyroxine Reflex 1.17 ng/dL (0.78-2.19)
[2023-05-05 23:32] LABS: Total Triiodothyronine (T3) 1.05 NG/ML (0.97-1.69)
[2023-05-06] VITALS (34 sets, daily range): BP systolic 92–167; BP diastolic 16–79; PULSE 56–105; RESP 16–20; TEMP 0–36.8; O2SAT 94–100
[2023-05-06] MEDS: ACETAMINOPHEN 325 MG TABLET 650 MG PO ×3 (04:16→21:04)
[2023-05-06 05:29] LABS: Hematocrit 31.9 % (37.0-47.0); Mean Corpuscular HGB Conc 31.3 g/dl (32-36); Mean Corpuscular Hemoglobin 32.2 pg (26-34); Mean Corpuscular Volume 102.6 fl (80-100); Mean Platelet Volume 9.6 fl (7.4-10.4); Platelet Count Result 229 k/mm3 (150-375); Red Blood Count 3.11 M/mm3 (4.2-5.4); Red Cell Distribution Width 15.9 % (11.5-14.5); White Blood Count 5.1 K/mm3 (4.5-10.0)
[2023-05-06 05:45] LABS: Anion Gap 12 mmol/L (8-16); Blood Urea Nitrogen 37 mg/dL (7-17); Carbon Dioxide 29 mmol/L (22-30); Chloride 93 mmol/L (98-107); Estimated Glomerular Filt Rate 6; Glucose 80 mg/dL (65-110); Magnesium 1.9 mg/dL (1.6-2.3); Phosphorus 7.3 mg/dL (2.5-4.5); Potassium 5.2 mmol/L (3.4-5.0); Sodium 134 mmol/L (137-145)
--- NOTE | 2023-05-06 07:25 | ECG_ITS ---
Measurements Intervals [place] Rate: 83 P: 8 [place]: 152 QRS: 5 QRSD: 87 T: 27 QT: 383 QTc: 452 Interpretive Statements SINUS RHYTHM INCOMPLETE RIGHT BUNDLE BRANCH BLOCK LOW QRS VOLTAGE IN PRECORDIAL LEADS CONSIDER INFERIOR INFARCT, AGE INDETERMINATE ABNORMAL ECG COMPARED TO ECG 05/05/2023 08:45:12 NO SIGNIFICANT CHANGES Electronically Signed On 05-06-2023 10:57:52 HOBBING PRESS OPERATOR by Drew Maldonado D.O.
[2023-05-06] MEDS: SEVELAMER CARBONATE 800 MG TABLET 3200 MG BY MOUTH ×3 (08:07→16:55)
[2023-05-06] MEDS: ATORVASTATIN 40 MG TABLET 80 MG PO (08:08)
[2023-05-06] MEDS: ESCITALOPRAM OXALATE 10 MG TABLET PO (08:09)
[2023-05-06] MEDS: VITAMIN B CMPLX/VIT C/FOLIC AC 1 CAPSULE 1 CAP PO (08:09)
[2023-05-06] MEDS: allopurinoL 100 MG TABLET PO (08:09)
[2023-05-06] MEDS: HEPARIN SODIUM 5,000 UNITS/ML VIAL 5000 UNITS SUB-Q ×2 (08:10→21:06)
[2023-05-06] MEDS: PANTOPRAZOLE 40 MG TABLET PO (08:10)
[2023-05-06] MEDS: CLOPIDOGREL BISULFATE 75 MG TABLET PO (08:10)
[2023-05-06] MEDS: GABAPENTIN 300 MG CAPSULE PO ×3 (08:15→21:04)
--- NOTE | 2023-05-06 08:49 | PC.NURSE ---
To dialysis via [facility] for treatment
[2023-05-06] MEDS: ALBUMIN HUMAN 25% 12.5 GM/50ML 50 ML IVPB (09:04)
--- NOTE | 2023-05-06 09:56 | PM.PNNEP ---
Progress Note: A&P Assessment and Plan (1) End stage renal disease: Code(s): N18.6 - End stage renal disease Status: Chronic Assessment and Plan: HD tomorrow continue Fri/Fri/Friday outpatient dialysis schedule follow electrolytes, volume status, and clearance DUF today for furthe fluid removal as significantly above dry weight (2) Hyperkalemia: Code(s): E87.5 - Hyperkalemia Status: Acute Assessment and Plan: resolving s/p medical management dialysis yesterday follow repeat K+ levels not a usual problem for the patient from discussion with outpatient dialysis unit (3) Elevated troponin: Code(s): R79.89 - Other specified abnormal findings of blood chemistry Status: Acute Assessment and Plan: noted since admission no complaints of chest pain EKG noted Cardiology consulted (4) Generalized weakness: Code(s): R53.1 - Weakness Status: Acute Assessment and Plan: suspect due to a combo of high K+ along with diarrhea and possible viral illness viral testing negative supportive care (5) Obstructive sleep apnea: Code(s): G47.33 - Obstructive sleep apnea (adult) (pediatric) Status: Acute Assessment and Plan: continue CPAP use (6) Anemia: Code(s): D64.9 - Anemia, unspecified Status: Chronic Assessment and Plan: due to ESRD Epogen with HD follow H/H Will continue to follow. Subjective Date/time seen: 05/06/23 09:56 Interval history: Follow-up for end stage renal disease on hemodialysis. Tolerated dialysis treatment yesterday and tolerating dry ultrafiltration session at the time of visit (seen on DUF at 9:50AM); potassium level has improved with dialytic intervention; no further diarrhea noted; no other issues/events overnight or earlier this morning. Exam Narrative: General: Large female in NAD Heart: normal S1 and S2; no rub Lungs: clear but decreased at bases Abdomen: soft, nontender, nondistended, positive bowel sounds Extremities: no cyanosis or clubbing; trace edema Skin: warm and dry Objective Data Vital Signs Vital Signs: Vital Signs Temp Pulse Resp BP Pulse Ox O2 Del Method O2 Flow Rate 05/06/23 09:45 79 136/31 L 05/06/23 09:30 80 106/30 L 05/06/23 09:15 77 109/38 L 05/06/23 08:58 73 98/44 L 05/06/23 08:50 98.1 F 85 18 135/34 L 05/06/23 08:50 2 05/06/23 08:30 84 05/06/23 08:26 96.7 F L 87 20 100/26 L 100 05/06/23 06:00 78 05/06/23 04:00 85 05/06/23 04:00 97.5 F L 86 16 129/45 L 95 05/06/23 04:07 76 19 100 CPAP 05/06/23 03:54 76 18 100 CPAP 05/06/23 02:00 76 05/06/23 00:00 82 18 100 CPAP 05/06/23 00:00 82 05/06/23 00:00 97.5 F L 81 18 112/40 L 94 05/05/23 22:50 88 22 H 95 CPAP 05/05/23 22:00 83 05/05/23 20:00 98 05/05/23 20:00 87 18 95 Room Air 05/05/23 20:45 97.5 F L 87 18 125/57 L 95 05/05/23 18:00 88 05/05/23 16:00 86 05/05/23 16:00 97.1 F L 83 18 92/68 L 96 05/05/23 17:58 97.5 F L 81 16 114/42 L 05/05/23 13:55 82 108/53 L 05/05/23 13:45 81 91/39 L 05/05/23 13:30 81 105/38 L 05/05/23 13:15 81 103/38 L 05/05/23 13:00 80 89/40 L 05/05/23 12:45 80 95/26 L 05/05/23 12:30 80 96/39 L 05/05/23 12:15 87 94/36 L 05/05/23 14:52 96.8 F L 85 20 133/109 H 98 05/05/23 12:58 97.5 F L Intake/Output Intake/Output: Intake & Output 05/03/23 05/04/23 05/05/23 05/06/23 23:59 23:59 23:59 23:59 Intake Total 920 240 Output Total 2400 Balance -1480 240 Meds/Results Medications: Active Medications Generic Name Dose Route Start Last Admin Trade Name Freq PRN Reason Stop Dose Admin Acetaminophen 650 mg 05/05/23 15:02 05/06/23 04:16 Ac
[2023-05-06 12:49] LABS: Glucose Point of Care 80 mg/dl (65-105)
--- NOTE | 2023-05-06 13:21 | PM.CNCAR ---
Assessment and Plan Assessment and plan (1) Elevated troponin: Code(s): R79.89 - Other specified abnormal findings of blood chemistry Status: Acute Assessment and Plan: Troponin of 0.086, 0.115, 0.160. EKG on admission shows sinus rhythm with first degree AVB, IVCD. EKG once potassium normalized shows sinus rhythm with IRBBB (which is old), IVCD no longer present. Has atypical chest pain -- reported having central chest pain that occurs randomly and lasts for a few minutes and self-resolves. Does have reproducible chest wall pain on exam, but patient states that this type of pain feels different than her other chest pain. Echocardiogram shows LVEF >70%, no significant valvular disease. Has been started on ASA 81mg once daily, continue. Continue high intensity statin. Follows regularly with her primary extension educator, Dr. Cardenas. Please obtain records from Dr. Cardenas's office. (2) Hyperkalemia: Code(s): E87.5 - Hyperkalemia Status: Acute Assessment and Plan: Improved, management as per Nephrology and primary team. (3) Diet-controlled type 2 diabetes mellitus: Code(s): E11.9 - Type 2 diabetes mellitus without complications Status: Acute Assessment and Plan: Management as per primary team. (4) Hypertension: Code(s): I10 - Essential (primary) hypertension Status: Acute Assessment and Plan: Stable (5) Paroxysmal atrial fibrillation: Code(s): I48.0 - Paroxysmal atrial fibrillation Status: Acute Assessment and Plan: In sinus currently. Not on anticoagulation at home. (6) End-stage renal disease on hemodialysis: Code(s): N18.6 - End stage renal disease; Z99.2 - Dependence on renal dialysis Status: Acute Assessment and Plan: As per Nephrology. History of Present Illness History of Present Illness Consult date/time: 05/06/23 13:21 Requesting physician: Derik Maddox MD Consult reason: Other (Elevated Troponin) Reason For Visit: Hyperkalemia and Elevated Troponin Narrative: We are consulted for elevated troponin. This is a 68 year old female with ESRD on HD, diabetes, hyperlipidemia, paroxysmal atrial fibrillation s/p ablation, KELTON who presented to the ER for evaluation of weakness. Also reported diffuse abdominal cramping and having loose stools. Reported having anterior chest pain as well that occurs randomly and lasts for a few minutes and self-resolves. ER workup showed potassium level of 8.1. Troponin of 0.086, 0.115, 0.160. EKG on admission shows sinus rhythm with first degree AVB, IVCD. EKG once potassium normalized shows sinus rhythm with IRBBB (which is old), IVCD no longer present. Review of Systems Review of Systems: All systems reviewed & are unremarkable except as noted in HPI and below (HPI) [facility] Past Medical History Medical History Anxiety and depression Arthritis Diet-controlled type 2 diabetes mellitus End-stage renal disease on hemodialysis Hypertension Morbid obesity Obstructive sleep apnea Paroxysmal atrial fibrillation Surgical History Surgical History History of cardiac radiofrequency ablation History of cataract extraction History of section History of cholecystectomy History of colonoscopy with polypectomy History of hysterectomy History of tonsillectomy Family History Family History Father Cancer Hypertension Mother Cancer Other Diabetes mellitus Social History Social History Social History: Surrogate medical decision maker: Zeedavi Monte, sibling. Code status: Full code. Smoking packs per day: 3 Smoking cigarettes per day: 60.0 Years smoked: 25 Smoking pack-years: 75.00 Smoking status: Former smoker Tobacco type: cigarettes
--- NOTE | 2023-05-06 15:55 | PM.IMPN ---
Progress Note: A&P Assessment and Plan (1) Hyperkalemia: Code(s): E87.5 - Hyperkalemia Status: Acute Assessment and Plan: Potassium was 8.1 on arrival. She denies missed dialysis sessions. Historically she has not had issues with hyperkalemia. EKG: sinus rhythm, first-degree AV block, LAD, IVCD, poor R wave progression with possible old inferior infarct. Treated immediately and appropriately for hyperkalemia in the ED. Status post dialysis. Potassium 5.2 this morning prior to 2nd HD treatment Repeat EKG showing IVCD has resolved. Etiology of hyperkalemia unclear. Dr. Denson is following; consult appreciated. (2) Elevated troponin: Code(s): R79.89 - Other specified abnormal findings of blood chemistry Status: Acute Assessment and Plan: Troponins ordered due to weakness; she was not having chest pain c/w ischemia EKG: as above Troponin trend: 0.086 --> 0.115 --> 0.160. Echo showing EF 70% with Grade I diastolic dysfunction Repeat EKG showing IVCD resolved related to improved potassium Cardiology consult and appreciate their input. Old records requested Start ASA. She states that she no longer takes Plavix. (3) Generalized weakness: Code(s): R53.1 - Weakness Status: Acute Assessment and Plan: Likely due to a combination of hyperkalemia, recent diarrhea and possible viral illness. ACS seems less likely. PCR for influenza, COVID, and RSV negative. Group A strep PCR negative. Status post dialysis with repeat BMP pending. Start PT/OT (4) End-stage renal disease on hemodialysis: Code(s): N18.6 - End stage renal disease; Z99.2 - Dependence on renal dialysis Status: Acute Assessment and Plan: Dialysis days are Friday, Friday, and Friday. Denies missed sessions. Dr. Denson is following and his input is appreciated. Completed dialysis 05/05 and 05/06. Plan to continue dialysis per her schedule (5) Obstructive sleep apnea: Code(s): G47.33 - Obstructive sleep apnea (adult) (pediatric) Status: Acute Assessment and Plan: CPAP will be provided for the patient to use while hospitalized. Plan DVT prophylaxis - Heparin Code status - Full Disp - PT/OT. Home if does well with therapy Subjective Date/time seen: 05/06/23 15:55 Interval history: 68yo female with ESRD, CHFand KELTON here for weakness and found to have hyperkalemia. Patient had diarrhea prior to admission but has resolved. She did have a fall about a week ago injuring her shoulder and she has been taking ibuprofen and tyleol alternating. She does not make urine. Tolerated dialysis treatment yesterday and had DUF today. She denies any new medications. She denies having a high potassium diet. She has been having chest pain that is palapble. Exam Narrative: AF 97.1 123/59 89 20 96% ra Gen - NARD Chest - distant clear BS, nml RR CV - RRR S1/S2. Tele showing significant dysrhythmias Abd - Soft, NT/ND, Positive BS Ext - trace pedal edema. Thrill/bruit RUE Psych - Nml mood and affect Skin - Warm and dry Objective Data Vital Signs Vital Signs: Vital Signs - 24 hr 05/05/23 17:58 05/05/23 16:00 05/05/23 16:00 Temperature 97.5 F L 97.1 F L Pulse Rate 81 83 86 Respiratory Rate 16 18 Blood Pressure 114/42 L 92/68 L Pulse Oximetry 96 Oxygen Delivery Oxygen Flow Rate Fraction of Inspired Oxygen 05/05/23 18:00 05/05/23 20:45 05/05/23 20:00 Temperature 97.5 F L Pulse Rate 88 87 87 Respiratory Rate 18 18 Blood Pressure 125/57 L Pulse Oximetry 95 95 Oxygen Delivery Room Air Oxygen Flow Rate Fraction of Inspired Oxygen 05/05/23 20:00 05/05/23 22:00 05/05/23 22:50 Temperature Pulse Rate 98 83 88 Respiratory Rate 22 H Blood Pressure Pulse Oximetry 95 Oxygen Delivery CPAP Oxygen Flow Rate Fraction of Inspired Oxygen 05/06/23 00:00 05/06/23 00:00 05/06/23 00:00 T
[2023-05-06] MEDS: ASPIRIN 81 MG CHEWABLE TABLET PO (16:56)
[2023-05-06] MEDS: ALBUTEROL SULFATE (*SP) AEROSOL 1 PUFF 2 PUFF INHALATION (19:33)
--- NOTE | 2023-05-06 19:50 | PC.NURSE ---
1230 - returned to room post dialysis treatment- denies pain at this time
[2023-05-06] MEDS: SEVELAMER CARBONATE 800 MG TABLET BY MOUTH (21:06)
[2023-05-07] VITALS (27 sets, daily range): BP systolic 88–124; BP diastolic 28–53; PULSE 74–97; RESP 16–18; TEMP 36.5–37; O2SAT 91–100
[2023-05-07 05:30] LABS: Albumin Level 2.6 g/dL (3.5-5.1); Anion Gap 14 mmol/L (8-16); Blood Urea Nitrogen 58 mg/dL (7-17); Calcium 10.1 mg/dL (8.4-10.2); Carbon Dioxide 28 mmol/L (22-30); Chloride 93 mmol/L (98-107); Estimated Glomerular Filt Rate 4; Glucose 122 mg/dL (65-110); Phosphorus 7.9 mg/dL (2.5-4.5); Potassium 5.5 mmol/L (3.4-5.0); Sodium 135 mmol/L (137-145)
[2023-05-07] MEDS: ALBUTEROL SULFATE (*SP) AEROSOL 1 PUFF 2 PUFF INHALATION (08:20)
[2023-05-07] MEDS: CLOPIDOGREL BISULFATE 75 MG TABLET PO (08:26)
[2023-05-07] MEDS: VITAMIN B CMPLX/VIT C/FOLIC AC 1 CAPSULE 1 CAP PO (08:26)
[2023-05-07] MEDS: SEVELAMER CARBONATE 800 MG TABLET 3200 MG BY MOUTH ×2 (08:26→13:13)
[2023-05-07] MEDS: ASPIRIN 81 MG CHEWABLE TABLET PO (08:26)
[2023-05-07] MEDS: HEPARIN SODIUM 5,000 UNITS/ML VIAL 5000 UNITS SUB-Q (08:27)
[2023-05-07] MEDS: ESCITALOPRAM OXALATE 10 MG TABLET PO (08:27)
[2023-05-07] MEDS: allopurinoL 100 MG TABLET PO (08:27)
[2023-05-07] MEDS: PANTOPRAZOLE 40 MG TABLET PO (08:27)
[2023-05-07] MEDS: ATORVASTATIN 40 MG TABLET 80 MG PO (08:27)
[2023-05-07] MEDS: GABAPENTIN 300 MG CAPSULE PO ×2 (08:28→13:14)
--- NOTE | 2023-05-07 08:45 | PC.NURSE ---
Patient transferred via bed to dialysis without issue.
[2023-05-07] MEDS: HEPARIN SODIUM 1,000 UNITS/ML VIAL 1200 UNITS IV PUSH (09:02)
[2023-05-07] MEDS: HEPARIN SODIUM 1,000 UNITS/ML VIAL 500 UNITS IV PUSH ×3 (09:05→11:11)
[2023-05-07] MEDS: MIDODRINE HCL 10 MG TABLET PO (10:12)
--- NOTE | 2023-05-07 10:14 | PC.NURSE ---
Up to dialysis to administer PRN Midodrine.
[2023-05-07] MEDS: EPOETIN ALFA-EPBX 4,000 UNITS/ML VIAL 4000 UNITS IV PUSH (11:11)
[2023-05-07] MEDS: ACETAMINOPHEN 325 MG TABLET 650 MG PO (11:30)
--- NOTE | 2023-05-07 12:10 | PM.PNNEP ---
Progress Note: A&P Assessment and Plan (1) End stage renal disease: Code(s): N18.6 - End stage renal disease Status: Chronic Assessment and Plan: HD today continue Fri/Fri/Friday outpatient dialysis schedule follow electrolytes, volume status, and clearance DUF today for furthe fluid removal as significantly above dry weight (2) Hyperkalemia: Code(s): E87.5 - Hyperkalemia Status: Acute Assessment and Plan: resolving s/p medical management dialysis yesterday follow repeat K+ levels not a usual problem for the patient from discussion with outpatient dialysis unit (3) Elevated troponin: Code(s): R79.89 - Other specified abnormal findings of blood chemistry Status: Acute Assessment and Plan: noted since admission no complaints of chest pain EKG noted Cardiology recommendations noted (4) Generalized weakness: Code(s): R53.1 - Weakness Status: Acute Assessment and Plan: suspect due to a combo of high K+ along with diarrhea and possible viral illness viral testing negative supportive care (5) Obstructive sleep apnea: Code(s): G47.33 - Obstructive sleep apnea (adult) (pediatric) Status: Acute Assessment and Plan: continue CPAP use (6) Anemia: Code(s): D64.9 - Anemia, unspecified Status: Chronic Assessment and Plan: due to ESRD Epogen with HD follow H/H Will continue to follow. Subjective Date/time seen: 05/07/23 12:10 Interval history: Follow-up for end stage renal disease on hemodialysis. Tolerating hemodialysis treatment at the time of my visit (seen on HD at 12:00PM) although fluid removal challenging due to intradialytic hypotension; tolerated DUF session yesterday reasonably well also; no apparent distress voiced. Exam Narrative: General: Large female in NAD Heart: normal S1 and S2; no rub Lungs: clear but decreased at bases Abdomen: soft, nontender, nondistended, positive bowel sounds Extremities: no cyanosis or clubbing; trace edema Skin: warm and intact Objective Data Vital Signs Vital Signs: Vital Signs Temp Pulse Resp BP Pulse Ox O2 Del Method FiO2 05/07/23 12:00 87 101/30 L 05/07/23 11:45 87 98/53 L 05/07/23 11:30 85 104/50 L 05/07/23 11:15 91 103/30 L 05/07/23 11:00 88 90/28 L 05/07/23 10:45 87 99/47 L 05/07/23 10:30 87 100/35 L 05/07/23 10:15 91 110/41 L 05/07/23 10:00 89 88/38 L 05/07/23 09:45 87 99/29 L 05/07/23 09:30 92 106/36 L 05/07/23 09:15 88 123/45 L 05/07/23 08:48 98.3 F 88 18 124/28 L 05/07/23 09:05 84 117/37 L 05/07/23 08:00 93 Room Air 05/07/23 08:23 81 18 05/07/23 08:23 93 Room Air 05/07/23 07:25 98 F 74 18 120/38 L 100 05/07/23 06:00 74 05/07/23 04:00 81 16 91 CPAP 0 05/07/23 04:00 81 05/07/23 02:00 84 05/07/23 04:00 97.7 F 81 16 91/38 L 91 05/06/23 23:00 75 20 96 CPAP 05/07/23 00:00 82 18 94 CPAP 0 05/07/23 00:00 82 05/06/23 23:46 97.9 F 81 18 138/40 L 94 05/06/23 22:00 96 05/06/23 20:00 105 H 18 96 CPAP 0 05/06/23 20:00 105 H 05/06/23 18:00 82 05/06/23 16:30 83 05/06/23 19:50 97.5 F L 92 18 99/34 L 96 05/06/23 19:35 86 18 05/06/23 16:10 97.4 F L 92 20 100/37 L 100 Intake/Output Intake/Output: Intake & Output 05/04/23 05/05/23 05/06/23 05/07/23 23:59 23:59 23:59 23:59 Intake Total 920 830 350 Output Total 2400 2445 1500 Balance -2985 -7221 -3436 Meds/Results Medications: Active Medications Generic Name Dose Route Start Last Admin Trade Name Freq PRN Reason Stop Dose Admin Acetaminophen 650 mg 05/05/23 15:02 05/07/23 11:30 Acetaminophen 325 Mg Tablet PO 650 mg Q6H PRN Administration M
--- NOTE | 2023-05-07 12:10 | P.PNNP_ITS ---
Progress Note: A&P Assessment and Plan (1) End stage renal disease: Code(s): N18.6 - End stage renal disease Status: Chronic Assessment and Plan: * HD today * continue Fri/Fri/Friday outpatient dialysis schedule * follow electrolytes, volume status, and clearance * DUF today for furthe fluid removal as significantly above dry weight (2) Hyperkalemia: Code(s): E87.5 - Hyperkalemia Status: Acute Assessment and Plan: * resolving * s/p medical management * dialysis yesterday * follow repeat K+ levels * not a usual problem for the patient from discussion with outpatient dialysis unit (3) Elevated troponin: Code(s): R79.89 - Other specified abnormal findings of blood chemistry Status: Acute Assessment and Plan: * noted since admission * no complaints of chest pain * EKG noted * Cardiology recommendations noted (4) Generalized weakness: Code(s): R53.1 - Weakness Status: Acute Assessment and Plan: * suspect due to a combo of high K+ along with diarrhea and possible viral illness * viral testing negative * supportive care (5) Obstructive sleep apnea: Code(s): G47.33 - Obstructive sleep apnea (adult) (pediatric) Status: Acute Assessment and Plan: * continue CPAP use (6) Anemia: Code(s): D64.9 - Anemia, unspecified Status: Chronic Assessment and Plan: * due to ESRD * Epogen with HD * follow H/H Will continue to follow. Subjective Date/time seen: 05/07/23 12:10 Interval history: Follow-up for end stage renal disease on hemodialysis. Tolerating hemodialysis treatment at the time of my visit (seen on HD at 12:00PM) although fluid removal challenging due to intradialytic hypotension; tolerated DUF session yesterday reasonably well also; no apparent distress voiced. Exam Narrative: General: Large female in NAD Heart: normal S1 and S2; no rub Lungs: clear but decreased at bases Abdomen: soft, nontender, nondistended, positive bowel sounds Extremities: no cyanosis or clubbing; trace edema Skin: warm and intact Objective Data Vital Signs Vital Signs: Vital Signs Temp Pulse Resp BP Pulse Ox O2 Del Method FiO2 05/07/23 12:00 87 101/30 L 05/07/23 11:45 87 98/53 L 05/07/23 11:30 85 104/50 L 05/07/23 11:15 91 103/30 L 05/07/23 11:00 88 90/28 L 05/07/23 10:45 87 99/47 L 05/07/23 10:30 87 100/35 L 05/07/23 10:15 91 110/41 L 05/07/23 10:00 89 88/38 L 05/07/23 09:45 87 99/29 L 05/07/23 09:30 92 106/36 L 05/07/23 09:15 88 123/45 L 05/07/23 08:48 98.3 F 88 18 124/28 L 05/07/23 09:05 84 117/37 L 05/07/23 08:00 93 Room Air 05/07/23 08:23 81 18 05/07/23 08:23 93 Room Air 21 05/07/23 07:25 98 F 74 18 120/38 L 100 05/07/23 06:00 74 05/07/23 04:00 81 16 91 CPAP 0 05/07/23 04:00 81 05/07/23 02:00 84 05/07/23 04:00 97.7 F 81 16 91/38 L 91 05/06/23 23:00 75 20 96 CPAP 05/07/23 00:00 82 18 94 CPAP 0 05/07/23 00:00 82 05/06/23 23:46
--- NOTE | 2023-05-07 13:06 | PC.NURSE ---
Patient transferred back to room 202 via bed without issue.
--- NOTE | 2023-05-07 13:19 | P.DS_ITS ---
DS: Admitting Diagnosis Discharge Date 05/07/23 Admitting Diagnosis hyperkalemia DS: Discharge Diagnosis Discharge Diagnosis (1) Hyperkalemia: Code(s): E87.5 - Hyperkalemia Status: Acute Assessment and Plan: Potassium was 8.1 on arrival. She denies missed dialysis sessions. Historically she has not had issues with hyperkalemia. * EKG: sinus rhythm, first-degree AV block, LAD, IVCD, poor R wave progression with possible old inferior infarct. * Treated immediately and appropriately for hyperkalemia in the ED. * Status post dialysis. Potassium 5.2 this morning prior to 2nd HD treatment * Repeat EKG showing IVCD has resolved. * Etiology of hyperkalemia unclear. * Dr. Denson is following; consult appreciated. (2) Elevated troponin: Code(s): R79.89 - Other specified abnormal findings of blood chemistry Status: Acute Assessment and Plan: Troponins ordered due to weakness; she was not having chest pain c/w ischemia * EKG: as above * Troponin trend: 0.086 --> 0.115 --> 0.160. * Echo showing EF 70% with Grade I diastolic dysfunction * Repeat EKG showing IVCD resolved related to improved potassium * Cardiology consult and appreciate their input. Old records requested * Start ASA. She states that she no longer takes Plavix. (3) Generalized weakness: Code(s): R53.1 - Weakness Status: Acute Assessment and Plan: Likely due to a combination of hyperkalemia, recent diarrhea and possible viral illness. ACS seems less likely. * PCR for influenza, COVID, and RSV negative. Group A strep PCR negative. * Status post dialysis with repeat BMP pending. * Start PT/OT (4) End-stage renal disease on hemodialysis: Code(s): N18.6 - End stage renal disease; Z99.2 - Dependence on renal dialysis Status: Acute Assessment and Plan: Dialysis days are Friday, Friday, and Friday. Denies missed sessions. * Dr. Denson is following and his input is appreciated. * Completed dialysis 05/05 and 05/06. * Plan to continue dialysis per her schedule (5) Obstructive sleep apnea: Code(s): G47.33 - Obstructive sleep apnea (adult) (pediatric) Status: Acute Assessment and Plan: CPAP will be provided for the patient to use while hospitalized. Plan DVT prophylaxis - Heparin Code status - Full Disp - PT/OT. Home if does well with therapy DS: Summary Hospital Course Hospital Course: 68yo female with ESRD, CHFand KELTON here for weakness and found to have hyperkalemia. Potassium was 8.1 on arrival. She denies missed dialysis sessions. Historically she has not had issues with hyperkalemia. * EKG: sinus rhythm, first-degree AV block, LAD, IVCD, poor R wave progression with possible old inferior infarct. * Treated immediately and appropriately for hyperkalemia in the ED. * Status post dialysis. Potassium 5.2 this morning prior to 2nd HD treatment * Repeat EKG showing IVCD has resolved. * Etiology of hyperkalemia unclear. * Dr. Denson is following; consult appreciated. Tolerated dialysis treatment yesterday and tolerating dry ultrafiltration session at the time of visit (seen on DUF at 9:50AM); potassium level has improved with dialytic intervention Please see above and med rec for details. Patient discharged in stable condition with close outpatient follow up. Time Spent with Patient Time attestation: Total time spent providing and/or coordinating discharge services: Exam Narrative: AF 97.1 123/59 89 20
--- NOTE | 2023-05-07 13:19 | PM.DS ---
DS: Admitting Diagnosis Discharge Date 05/07/23 Admitting Diagnosis hyperkalemia DS: Discharge Diagnosis Discharge Diagnosis (1) Hyperkalemia: Code(s): E87.5 - Hyperkalemia Status: Acute Assessment and Plan: Potassium was 8.1 on arrival. She denies missed dialysis sessions. Historically she has not had issues with hyperkalemia. EKG: sinus rhythm, first-degree AV block, LAD, IVCD, poor R wave progression with possible old inferior infarct. Treated immediately and appropriately for hyperkalemia in the ED. Status post dialysis. Potassium 5.2 this morning prior to 2nd HD treatment Repeat EKG showing IVCD has resolved. Etiology of hyperkalemia unclear. Dr. Denson is following; consult appreciated. (2) Elevated troponin: Code(s): R79.89 - Other specified abnormal findings of blood chemistry Status: Acute Assessment and Plan: Troponins ordered due to weakness; she was not having chest pain c/w ischemia EKG: as above Troponin trend: 0.086 --> 0.115 --> 0.160. Echo showing EF 70% with Grade I diastolic dysfunction Repeat EKG showing IVCD resolved related to improved potassium Cardiology consult and appreciate their input. Old records requested Start ASA. She states that she no longer takes Plavix. (3) Generalized weakness: Code(s): R53.1 - Weakness Status: Acute Assessment and Plan: Likely due to a combination of hyperkalemia, recent diarrhea and possible viral illness. ACS seems less likely. PCR for influenza, COVID, and RSV negative. Group A strep PCR negative. Status post dialysis with repeat BMP pending. Start PT/OT (4) End-stage renal disease on hemodialysis: Code(s): N18.6 - End stage renal disease; Z99.2 - Dependence on renal dialysis Status: Acute Assessment and Plan: Dialysis days are Friday, Friday, and Friday. Denies missed sessions. Dr. Denson is following and his input is appreciated. Completed dialysis 05/05 and 05/06. Plan to continue dialysis per her schedule (5) Obstructive sleep apnea: Code(s): G47.33 - Obstructive sleep apnea (adult) (pediatric) Status: Acute Assessment and Plan: CPAP will be provided for the patient to use while hospitalized. Plan DVT prophylaxis - Heparin Code status - Full Disp - PT/OT. Home if does well with therapy DS: Summary Hospital Course Hospital Course: 68yo female with ESRD, CHFand KELTON here for weakness and found to have hyperkalemia. Potassium was 8.1 on arrival. She denies missed dialysis sessions. Historically she has not had issues with hyperkalemia. EKG: sinus rhythm, first-degree AV block, LAD, IVCD, poor R wave progression with possible old inferior infarct. Treated immediately and appropriately for hyperkalemia in the ED. Status post dialysis. Potassium 5.2 this morning prior to 2nd HD treatment Repeat EKG showing IVCD has resolved. Etiology of hyperkalemia unclear. Dr. Denson is following; consult appreciated. Tolerated dialysis treatment yesterday and tolerating dry ultrafiltration session at the time of visit (seen on DUF at 9:50AM); potassium level has improved with dialytic intervention Please see above and med rec for details. Patient discharged in stable condition with close outpatient follow up. Time Spent with Patient Time attestation: Total time spent providing and/or coordinating discharge services: Exam Narrative: AF 97.1 123/59 89 20 96% ra Gen - NARD Chest - distant clear BS, nml RR CV - RRR S1/S2. Tele showing significant dysrhythmias Abd - Soft, NT/ND, Positive BS Ext - trace pedal edema. Thrill/bruit RUE Psych - Nml mood and affect Skin - Warm and dry DS: Data Data Completed and Pending Labs on day of discharge: Labs from last 24 hours 05/07/23 04:34 Sodium 135 L Potassium 5.5 H Chloride 93 L Carbon Dioxide 28 Anion Gap 14 BUN 58 H D Creatinine 8.90 H Estim Creat
[2023-05-07] MEDS: traMADol HCL (*CRX) 50 MG TABLET PO (13:33)
--- NOTE | 2023-05-07 14:00 | PM.PNCARD ---
Progress Note: A&P Assessment and Plan (1) Elevated troponin: Code(s): R79.89 - Other specified abnormal findings of blood chemistry Status: Acute Assessment and Plan: Troponin of 0.086, 0.115, 0.160. ESRD patient. EKG on admission shows sinus rhythm with first degree AVB, IVCD. EKG once potassium normalized shows sinus rhythm with IRBBB (which is old), IVCD no longer present. Has atypical chest pain -- reported having central chest pain that occurs randomly and lasts for a few minutes and self-resolves. Does have reproducible chest wall pain on exam, but patient states that this type of pain feels different than her other chest pain. Echocardiogram shows LVEF >70%, no significant valvular disease. Has been started on ASA 81mg once daily, continue. Continue high intensity statin. No additional cardiac workup at this time. Recommend patient follow up with her primary dining room server, Dr. Cardenas. (2) Hyperkalemia: Code(s): E87.5 - Hyperkalemia Status: Acute Assessment and Plan: Improved, management as per Nephrology and primary team. (3) Diet-controlled type 2 diabetes mellitus: Code(s): E11.9 - Type 2 diabetes mellitus without complications Status: Acute Assessment and Plan: Management as per primary team. (4) Hypertension: Code(s): I10 - Essential (primary) hypertension Status: Acute Assessment and Plan: Stable (5) Paroxysmal atrial fibrillation: Code(s): I48.0 - Paroxysmal atrial fibrillation Status: Acute Assessment and Plan: In sinus currently. S/p left atrial appendage closure with Amulet. (6) End-stage renal disease on hemodialysis: Code(s): N18.6 - End stage renal disease; Z99.2 - Dependence on renal dialysis Status: Acute Assessment and Plan: As per Nephrology. Subjective Date/time seen: 05/07/23 14:00 Interval history: Reason for visit: Elevated troponin HPI: We are consulted for elevated troponin. This is a 68 year old female with ESRD on HD, diabetes, hyperlipidemia, paroxysmal atrial fibrillation s/p ablation, KELTON who presented to the ER for evaluation of weakness. Also reported diffuse abdominal cramping and having loose stools. Reported having anterior chest pain as well that occurs randomly and lasts for a few minutes and self-resolves. ER workup showed potassium level of 8.1. Troponin of 0.086, 0.115, 0.160. EKG on admission shows sinus rhythm with first degree AVB, IVCD. EKG once potassium normalized shows sinus rhythm with IRBBB (which is old), IVCD no longer present. Date of service 05/07: Reports right shoulder pain, but otherwise, no chest pain, shortness of breath Review of Systems Review of Systems: + Right shoulder pain No chest pain this morning Exam Const: General: comfortable and no acute distress HENMT: Mouth: Yes dry mucous membranes Resp: Effort & Inspection: normal respiratory effort Cardio: Rate: regular rate Rhythm: regular rhythm Skin: General skin exam: normal color Neuro: Speech: normal speech Psych: Mental Status: mental status grossly normal Affect: normal affect Objective Data Vital Signs Vital Signs: Vital Signs - 24 hr 05/06/23 16:10 05/06/23 19:35 05/06/23 19:50 Temperature 36.3 C L 36.4 C L Pulse Rate 92 86 92 Respiratory Rate 20 18 18 Blood Pressure 100/37 L 99/34 L Pulse Oximetry 100 96 Oxygen Delivery Fraction of Inspired Oxygen 05/06/23 16:30 05/06/23 18:00 05/06/23 20:00 Temperature Pulse Rate 83 82 105 H Respiratory Rate Blood Pressure Pulse Oximetry Oxygen Delivery Fraction of Inspired Oxygen 05/06/23 20:00 05/06/23 22:00 05/06/23 23:46 Temperature 36.6 C Pulse Rate 105 H 96 81 Respiratory Rate 18 18 Blood Pressure 138/40 L Pulse Oximetry 96 94 Oxygen Delivery CPAP Fraction of Inspired Oxygen 0 05/07/23 00:00 05/07/23 00:00 05/06/23 23:00 Temperature Pulse
== END 2023-05-07 16:38 | disposition home or self-care (01) | DRG 640 ==
LOC: ANHED 06:03 → ANHIMU 09:36
PROVIDERS: Emergency Medicine; Internal Medicine; Internal Medicine Nephrology; Physician Assistant; Admitting Provider Internal Medicine; Emergency Provider Emergency Medicine; PCP Internal Medicine Infectious Disease; Visit Provider Student in an Organized Health Care Education/Training Program
DX: E87.5 Hyperkalemia (principal); N18.6 End stage renal disease; Z68.42 Body mass index [BMI] 45.0-49.9, adult; I12.0 Hypertensive chronic kidney disease with stage 5 chronic kidney disease or end stage renal disease; N17.9 Acute kidney failure, unspecified; E66.01 Morbid (severe) obesity due to excess calories; I48.0 Paroxysmal atrial fibrillation; E11.22 Type 2 diabetes mellitus with diabetic chronic kidney disease; G47.33 Obstructive sleep apnea (adult) (pediatric); R07.9 Chest pain, unspecified; R79.89 Other specified abnormal findings of blood chemistry; F41.9 Anxiety disorder, unspecified; F32.A Depression, unspecified; Z20.822 Contact with and (suspected) exposure to COVID-19; Z99.2 Dependence on renal dialysis; Z79.82 Long term (current) use of aspirin; Z86.010 Personal history of colon polyps; Z79.02 Long term (current) use of antithrombotics/antiplatelets; Z87.891 Personal history of nicotine dependence
CPT/HCPCS: 36415; 71045; 74176; 80048; 80053; 80069; 82948; 83605; 83690; 83735; 84100; 84145; 84439; 84443; 84480; 84484; 85025; 85027; 85610; 85730; 86140; 86706; 87040; 87340; 87637; 87651; 93005; 94640; 96361; 96374; 96375; 96376; 99285; A9270; C8929; G0257; G0378; J1644; J1815; J2270; J7030; J7040; P9047; Q5105; Q9957

== ENCOUNTER 2024-11-05 12:54 | Outpatient (CLI) | payer MEDICARE, MEDICAID, SELFPAY ==
--- OUTSIDE RECORDS SUMMARY | 2024-11-05 13:01 | XMS_ITS | Clinical Summary ---
Author Organization [facility] Address [address] [facility] [place] [address] Phone Care Team Providers Care Health Director Name Role Phone Pierre Bergeron MD Primary Care Provider Surendra Torres MD Unavailable Allergies Active Allergy Reactions Criticality Noted Date Comments Ciprofloxacin Hives 03/12/2016 Penicillins Other (see Comments) 03/12/2016 HEMORRHAGE OF THE NOSE Medications Aspirin 81 MG Tablet Take 81 mg by mouth daily. Active atorvastatin (LIPITOR) 80 MG Tablet Take 80 mg by mouth daily. Active Ergocalciferol (VITAMIN D2 PO) Take 1.25 mg by mouth. Active allopurinol (ZYLOPRIM) 100 MG Tablet Take 100 mg by mouth daily. Active citalopram (CELEXA) 20 MG Tablet Take 20 mg by mouth daily. Active albuterol 108 (90 Base) MCG/ACT Aerosol Solution take 2 Puffs by inhalation every 4 hours as needed for Wheezing. Active RENVELA 800 MG Tablet 6 Active B Nqtqnkp-E-Sevon Acid (B COMPLEX-VITAMIN C-FOLIC ACID) 1 MG Capsule Take by mouth. Acti ve metoprolol Succinate (TOPROL-XL) 25 MG TABLET SR 24 HR Take by mouth. Activ e DULoxetine HCl (Drizalma Sprinkle) 30 MG Capsule Delayed Release Sprinkle Take by mouth. Activ e DULoxetine (CYMBALTA) [address] Particles Take 30 mg by mouth daily. Active escitalopram (LEXAPRO) 10 MG Tablet Take 10 mg by mouth daily. Active gabapentin (NEURONTIN) 300 MG Capsule Take 300 mg by mouth 3 times daily. Active midodrine (PROAMATINE) 10 MG Tablet Take 10 mg by mouth 3 times daily (before meals). Active meloxicam (MOBIC) 7.5 MG Tablet Take 7.5 mg by mouth daily. Active sevelamer (RENAGEL) 800 MG Tablet Take 800 mg by mouth 3 times daily. Active Fluticasone-Ume clidin-Vilant (Trelegy Ellipta) 100-62.5-25 MCG/ACT AEROSOL POWDER, BREATH ACTIVATED take 1 Puff by inhalation daily. Active Aspirin ([place]) 81 MG Capsule Take by mouth. Acti ve pantoprazole (PROTONIX) 40 MG Tablet Delayed Response Take 40 mg by mouth daily. 3 Active doxycycline hyclate (VIBRA-TABS) 100 MG Tablet Active meloxicam (MOBIC) 7.5 MG Tablet Take 7.5 mg by mouth. Active Active Problems Problem Noted Date Diagnosed Date Other emphysema 01/30/2023 KELTON (obstructive sleep apnea) 03/14/2016 Essential (primary) hypertension 03/14/2016 Type 2 diabetes mellitus 03/14/2016 Morbid obesity 03/14/2016 SOB (shortness of breath) 03/14/2016 Immunizations Immunization Administration Dates Next Due Influenza Vaccine greater than 3 yrs 03/11/2016 Family History Medical History Relation Name Comments Chronic Obstructive Pulmonary Disease Brother 1 No Known Problems Brother 2 No Known Problems Brother 3 Cancer Father No Known Problems Maternal Grandfather No Known Problems Maternal Grandmother Cancer Mother No Known Problems Paternal Grandfather No Known Problems Paternal Grandmother Cancer Sister 1 No Known Problems Sister 2 Relation Name Status Comments Brother 1 Alive Brother 2 Alive Brother 3 Alive Father Maternal Grandfather Maternal Grandmother Mother Paternal Grandfather Paternal Grandmother Sister 1 Alive Sister 2 Alive Social History Tobacco Use Types Packs/Day Years Used Date Smoking Tobacco: Former Cigarettes 2 24 Smokeless Tobacco: Never Alcohol Use Standard Drinks/Week Comments No 0 (1 standard drink = 0.6 oz pur e alcohol) Comments No Sex and Gender Information Value Date Recorded Sex Assigned at Not on file Legal Sex Female 11:18 AM CDT Gender Identity Not on file Sexual Orientation Not on file Last Filed Vital Signs Vital Sign Reading Time Taken Comments Blood Pressure 108/52 06/24/2023 11:28 AM [employer] Pulse 69 06/24/2023 11:28 AM [employer] Temperature 37 C (98.6 F) 06/24/2023 11:28 AM [employer] INST[employer]ER Respiratory Rate 20 06/24/2023 11:28 AM [employer] IN[employer]ER Oxygen Saturation 97% 06/24/2023 11:28 AM [employer] IN[employer]ER Inhaled Oxygen Concentration - - Weight 99.8 kg (220 lb 1.6 oz) 06/24/2023 11:28 AM [employer] INST[employer] Height 142.2 cm (4' 8) 06/24/2023 11:28 AM [employer] INST[employer]ER Body Mass Index 49.35 06/24/2023 11:28 AM [employer] INST[employer]ER Plan of Treatment Health Maintenance Due Date Last Done Comments DEXA Bone Density 1954 Diabetes: Eye Exam 1954 Diabetes: Foot Exam 1954 Mammogram 1954 Diabetes: Nephropathy Screening 1972 Cologuard 2004 Immunochemical Fecal Occult Blood 2004 Zoster Immunization (1 of 2) 2004 Respiratory Syncytial Virus (RSV) Immunization (Adult) (1 - Risk 60-74 years 1-dose series) 2014 Diabetes: Hemoglobin A1c 05/30/2023 11/28/2022 Influenza Immunization (#1) 02/08/202406/2021, 06/11/2021, 03/09/2021, Additional history exists SARS-COV-2 Immunization ( season) 2024 09/07/2020, 08/28/2020 Colonoscopy 01/02/2032 01/01/2022, 01/18/2021 Colorectal Cancer Screening 01/02/2032 01/01/2022, 01/18/2021 DTaP/Tdap/Td Immunization Discontinued 03/11/2017 TdaP Immunization Completed 03/11/2017 Hepatitis C Virus (HCV) Screening Completed 11/08/2022 Pneumococcal Immunization (50+ years) Completed 05/29/2023, 03/11/2017, 08/07/2014 Pneumococcal Immunization Combined Discontinued 05/29/2023, 03/11/2017, 08/07/2014 Hepatitis B Immunization Aged Out No longer eligible based on patient's age to complete this topic Meningococcal Immunization (ACWY) Aged Out No longer eligible based on patient's age to complete this topic Rotavirus Immunization Aged Out No lo nger eligible based on patient's age to complete this topic Insurance MEDICAID [place] MEDICARE C [employer] Care Teams Health Director Relationship Specialty Start Date End Date Pierre Bergeron MD [address] [place] [id number] PCP - General Internal Medicine 11/03/15 Surendra Torres MD [address] [place] [address] Consulting Physician Pulmonary Disease 01/30/23
--- OUTSIDE RECORDS SUMMARY | 2024-11-05 13:02 | XMS_ITS | Referral Summary ---
Author Organization [facility] Home Care [facility] Address [address] [place] [address] Care Team Providers Care Technical Specialist Cytogenetics Name Role Phone Pierre Bergeron MD Primary Care Provider Mattie Oliver MD Unavailable [phone] Jose David Simpson MD Unavailable Russell Mock MD Unavailable [phone] Ramon Pastor MD Unavailable [phone] Lobito Melendez MD Unavailable [phone] Theresa Godinez MD, Quentin Roe Unavailable Elva Kurtz MD Unavailable Jorge Luis Alvarez MD Unavailable Encounters Date Type Department Care Team Description 08/25/2024 7:03 AM CDT - 08/25/2024 11:59 PM CDT Hospital Encounter [facility] Radiology [id number] [place] [address] Liver disease, unspecified Discharge Disposition: Discharge to home or self care from Last 3 Months Allergies Active Allergy Reactions Criticality Noted Date Comments Apixaban Rash Medium 10/10/2022 Pt is currently on this medication Ciprofloxacin Hives,Rash High Penicillins Other (See comments) High Nose bleed Medications allopurinoL (ZYLOPRIM) 100 mg tablet Take 1 tablet (100 mg total) by mouth every morning 1 Active atorvastatin (LIPITOR) 80 mg tablet Take 1 tablet (80 mg total) by mouth every morning 1 Active midodrine (PROAMATINE) 10 mg tablet Take 1 tablet (10 mg total) by mouth 3 (three) times a week M\W/ before HD and at half point of HD 0 Active sevelamer (RENVELA) 800 mg tablet Take 3 tablets (2,400 mg total) by mouth 3 (three) times a day with meals 3 for meal 2 with snack 6 Active lancets misc Use as directed up to 4 times a day. 100 each 1 2 Active alcohol swabs (Alcohol Wipes) pads, medicated Use as directed. 100 each 2 Active Trelegy Ellipta 100-62.5-25 mcg inhaler Inhale 1 puff every morning 2 Active cinacalcet (SENSIPAR) 30 mg tablet Take 1 tablet (30 mg total) by mouth 3 (three) times a week -W-F at dialysis Active DULoxetine DR (CYMBALTA) 30 mg capsule Take 1 capsule (30 mg total) by mouth every morning Active albuterol HFA (PROVENTIL HFA,VENTOLIN HFA,PROAIR HFA) 90 mcg/actuation inhaler Inhale 2 puffs every 8 (eight) hours as needed [address] (PROTONIX) 40 mg EC tablet Take 1 tablet (40 mg total) by mouth every morning 30 tablet 3 Active Trulicity 1.5 mg/0.5 mL pen injector Inject 0.5 mL (1.5 mg total) under the skin once a week On Friday 4 Active gabapentin (NEURONTIN) 300 mg capsule Take 1 capsule (300 mg total) by mouth 3 (three) times a day 4 Active meloxicam (MOBIC) 7.5 mg tablet Take 1 tablet (7.5 mg total) by mouth every morning 4 Active Argelia-Kelsy Rx 1-60-300 mg-mg-mcg tablet Take 1 tablet by mouth every morning 4 Active acetaminophen ER (Tylenol Arthritis Pain) 650 mg 8 hr tablet Take 2 tablets (1,300 mg total) by mouth every 8 (eight) hours as needed 3 Active docusate sodium (Stool Softener) 100 mg capsuleIndication s:constipation Take 1 capsule (100 mg total) by mouth 2 (two) times a day Active aspirin 81 mg enteric coated tablet Take 1 tablet (81 mg total) by mouth every morning Active traMADoL (ULTRAM) 50 mg tablet Take 1 tablet (50 mg total) by mouth every 6 (six) hours as needed for pain Active denosumab (PROLIA) 60 mg/mL syringeIndication s:Age-related osteoporosis without current pathological fracture Inject 1 mL (60 mg total) under the skin once for 1 dose 1 mL 5 Active Active Problems Problem Noted Date Diagnosed Date Type 2 diabetes mellitus wit h hyperglycemia, without long-term current use of insulin 06/29/2024 Paroxysmal SVT (supraventricular tachycardia) Age-related osteoporosis wit hout current pathological fracture 12/14/2023 Assessment & Plan (06/29/2024 11:57 AM DISPENSING AUDIOLOGIST): H/o Osteoporosis Chronic, unknown status We will try to obtain patient last BMD from 2023 Status post Prolia injection 01/27/2024 Plan to repeat Prolia injection in July 29, 2024 Check BMP before that Recommend to increase calcium supplementation Continue to take current vitamin-D supplementation Fall precautions Recommend weight-bearing exercises/strength training exercises to improve balance and gait Assessment & Plan (12/14/2023 7:17 PM CDT): Newly diagnosed osteoporosis We will try to obtain patient last BMD from 2023 Suspect renal osteodystrophy +/- osteomalacia from vitamin-D deficiency +/- osteoporosis - plan to obtain bone specific alkaline phosphatase CT low peptide PTH intact calcitriol level, magnesium and phosphorus levels along with vitamin- D 25 hydroxy levels Further plans after reviewing patient's lab results. Renal osteodystrophy 12/14/2023 Vitamin D deficiency 12/14/2023 Encounter for screening for malignant neoplasm o f colon 02/08/2023 Presence of Amulet left atrial appendage closure device 12/03/2022 Osteoarthritis of both knees 10/17/2022 Osteoarthritis of carpometacarpal (CMC) joint of thumb 10/17/2022 Pain of left hand 10/17/2022 Encounter regarding vascular access for dialysis for end-stage renal disease 07/08/2022 Wound check, abscess 04/04/2022 Perineal abscess 04/03/2022 Overview (04/03/2022): Added automatically from request for surgery [id number] Sternoclavicular joint pain, right 04/03/2022 Overview (05/07/2022): Added automatically from request for surgery [id number] Physical deconditioning 03/28/2022 Vulvar carcinoma 03/26/2022 Cor pulmonale 03/22/2022 S/P right colectomy 03/01/2022 EDWINA III (vulvar intraepithelial neoplasia III) 0 01/31/2022 Overview (01/31/2022): Added automatically from request for surgery [id number] Vulvar cancer 01/30/2022 Malignant neoplasm of ascending colon 01/15/2022 Overview (01/15/2022): Added automatically from request for surgery [id number] Complication of arteriovenous dialysis fistula 0 01/15/2022 Herpetic gingivostomatitis 01/15/2022 Upper GI bleed 12/26/2021 SVT (supraventricular tachycardia) 12/18/2021 Overview (12/18/2021): Added automatically from request for surgery [id number] Inflammation of sacroiliac joint 08/30/2021 Hyperkalemia 06/20/2021 Stage 5 chronic kidney disease on chronic dialys is 06/20/2021 Iron deficiency anemia secon pedro to inadequate dietary iron intake 06/20/2021 History of depression 06/20/2021 Morbidly obese 06/20/2021 Unspecified atrial fibrillation 05/22/2021 Venous thoracic outlet syndrome of right subclav gloria vein 08/22/2020 Cardiomegaly 06/22/2019 History of total hysterectomy 07/16/2018 Presence of other cardiac implants and grafts Aortic stenosis 04/05/2016 History of substance abuse 04/05/2016 KELTON (obstructive sleep apnea) 03/14/2016 Osteoarthritis 03/26/2011 Hypertension 11/29/2010 Hyperlipidemia 09/18/2007 Ventricular tachycardia 09/18/2007 Paroxysmal supraventricular tachycardia 06/09/18 60 Steroid-induced hyperglycemia Resolved Problems Problem Noted Date Diagnosed Date Resolved Date Polyp of colon 01/15/2022 01/30/2022 COVID-19 06/20/2021 01/30/2022 Bandemia 06/20/2021 01/30/2022 Type 2 diabetes mellitus wit hout complication, without long-term current use of insulin 06/20/2021 06/29/2024 Left arm swelling 10/28/2019 01/30/2022 Infection of AV graft for dialysis 06/07/2019 01/30/2022 Localized edema 01/07/2017 01/30/2022 ESRD (end stage renal disease) 04/11/2016 01/30/2022 Palpitations 04/05/2016 01/30/2022 Shortness of breath 09/21/2013 01/31/20 22 Dyslipidemia 11/29/2010 01/30/2022 Supraventricular tachycardia 06/09/1960 01/30/2022 Immunizations Immunization Administration Dates Next Due INFLUENZA [id number] 2015 Influenza, Quadrivalent, Spl it, Intramuscular 03/08/2021,02/29/2020,03/09/2018,03/10,03/09/2016 Influenza, Quadrivalent, Spl it, Preservative Free, Intramuscular 03/09/2013 Influenza, Trivalent, IM (MDV) 03/11/2016 Influenza, Unspecified 03/09/2022,03/09/2021 Pneumococcal Conjugate PCV 13 08/07/2014 Pneumococcal Polysaccharide PPV23 03/11/2017 Sars-CoV-2, Unspecified 09/08/2020,09/07/2020 Tdap 03/11/2017 Social History Tobacco Use Types Packs/Day Years Used Date Smoking Tobacco: Former Cigarettes 2 30 1 968 - 1998 Smokeless Tobacco: Never Tobacco Cessation:Counseling Given: Not Answered Comments:Smoked 2 packs/week Alcohol Use Standard Drinks/Week Comments Not Currently 0 (1 standard drink = 0.6 oz pur e alcohol) Social Connection and Isolat ion Panel [NHANES] Answer Date Recorded In a typical week, how many times do you talk on the phone with family, friends, or neighbors? More than three times a week 12/05/2022 How often do you get togethe r with friends or relatives? More than three times a week 12/05/2022 How often do you attend chur or shinto services? Never 12/05/2022 Do you belong to any clubs o r organizations such as restorationism groups, unions, fraternal or athletic groups, or school groups? Yes 12/05/2022 How often do you attend meet ings of the clubs or organizations you belong to? More than 4 times per year 12/05/2022 Are you , , di vorced, , never , or living with a partner? Never 12/05/2022 AUDIT-C Answer Date Recorded Q1: How often do you have a drink containing alc ohol? 2-4 times a month 01/01/2024 Q2: How many drinks containi ng alcohol do you have on a typical day when you are drinking? 1 or 2 01/01/2024 Q3: How often do you have si x or more drinks on one occasion? Never 01/01/2024 Overall Financial Resource Strain (CARDIA) Answe r Date Recorded How hard is it for you to pa y for the very basics like food, housing, medical care, and heating? Not hard at all 11/11/2022 PHQ-2 Answer Date Recorded PHQ-2 Total Score (If total score is 3 or more points, staff should administer the PHQ-9) 0 11/27/2023 [facility] - Occupational Stress Questionnaire Answer Date Recorded Do you feel stress - tense, restless, nervous, or anxious, or unable to sleep at night because your mind is troubled all the time - these days? Not at all 11/11/2022 Exercise Vital Sign Answer Date Recorde d On average, how many days pe r week do you engage in moderate to strenuous exercise (like a brisk walk)? 0 days 11/11/2022 On average, how many minutes do you engage in exercise at this level? 0 min 11/11/2022 Hunger Vital Sign Answer Date Recorded Within the past 12 months, y ou worried that your food would run out before you got the money to buy more. Never true 12/06/19 23 Within the past 12 months, t he food you bought just didn't last and you didn't have money to get more. Never true 12/05/2022 PRAPARE - Transportation Answer Date Re corded In the past 12 months, has l ack of transportation kept you from medical appointments or from getting medications? No 11/08 In the past 12 months, has l ack of transportation kept you from meetings, work, or from getting things needed for daily living? No 12/05/2022 Housing Stability Vital Sign Answer [place] e Recorded In the last 12 months, was t here a time when you were not able to pay the mortgage or rent on time? No 12/05/2022 In the last 12 months, how many places have you lived? 1 12/05/2022 In the last 12 months, was t here a time when you did not have a steady place to sleep or slept in a nursing home (including now)? No 12/05/2022 Personal Safety Answer Date Recorded Have you ever been in or are you currently in a harmful physical or emotional relationship or is someone making you feel afraid or unsafe? Denies 08/03/2024 Education Answer Date Recorded What is the highest level of school you have completed or the highest degree you have received? 11th grade 11/11/2022 Comments No Sex and Gender Information Value Date Recorded Sex Assigned at Not on file Legal Sex Female 7:11 PM DISPENSING AUDIOLOGIST Gender Identity Not on file Sexual Orientation Not on file Occupation Industry Job Start Date Job End Date On disability due to ESRD on HD. 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 Not on file Not on file Not on file Last Filed Vital Signs Vital Sign Reading Time Taken Comments Blood Pressure 135/53 08/03/2024 9:13 AM DISPENSING AUDIOLOGIST Pulse 91 08/03/2024 9:13 AM DISPENSING AUDIOLOGIST Temperature 37.1 C (98.8 F) 08/03/2024 9:13 AM DISPENSING AUDIOLOGIST Respiratory Rate 19 08/03/2024 9:13 AM DISPENSING AUDIOLOGIST Oxygen Saturation 95% 08/03/2024 9:13 AM DISPENSING AUDIOLOGIST Inhaled Oxygen Concentration - - Weight 101.1 kg (222 lb 14.4 oz) 08/03/2024 9:13 AM DISPENSING AUDIOLOGIST Height 142.2 cm (4' 8) 08/03/2024 9:13 AM DISPENSING AUDIOLOGIST Body Mass Index 49.97 08/03/2024 9:13 AM DISPENSING AUDIOLOGIST Plan of Treatment Not on file Medical Devices Implanted Type Area Configuration Management Administrator Device Identifier Shelf Expiration Date Model / Serial / Lot Endoprosthesis- 03/25/2019 Implanted:Qty: 1 on 03/25/2019 Endoprosthesis Left: Subclavian [employer] Stent-02/12/2022 Implanted:Qty: 1 on 02/12/2022 Stent Right: Subclavian [place] [id number] / [id number] / [employer] Device Clsr Perclose Prostyle Sut-Mediatd Closure-Repair Sys 33825-49 - [id number] Implanted:Qty: 1 on 12/03/2022 by Lobito Melendez MD at [facility] [id number] / / [employer] Percutaneous Transcatheter Amplatzer Amulet 18mm [id number] - [id number] Implanted:Qty: 1 on 12/03/2022 by Lobito Melendez MD at [facility] 03/08/2027 [id number] / / [id number] Procedures Procedure Name Priority Date/Time Associated Diagnosis Comments MRI ABDOMEN LIVER W WO CONTRAST Schedule Routine, Read Routine (OP Routine) 08/25/2024 8:52 AM CDT Liver disease, unspecified EGFR Routine 07/29/2024 8:36 AM DISPENSING AUDIOLOGIST Age-related osteoporosis without current pathological fracture HEPATITIS PANEL, ACUTE Routine 01/02/2024 8:45 AM CDT COLONOSCOPY 03/11/2023 7:38 AM CDT HEMOGLOBIN A1C Routine 11/28/2022 2:54 PM CDT Encounter for preadmission testing Type 2 diabetes mellitus with chronic kidney disease on chronic dialysis, without long-term current use of insulin (HCC) LIPID PANEL Routine 05/13/2022 8:03 AM DISPENSING AUDIOLOGIST from Last 3 Months or Most Recently Relevant to Health Maintenance Results * MRI Abdomen Liver W WO Contrast (08/25/2024 8:52 AM CDT) Anatomical Region Laterality Modality Body N/A Magnetic Resonan ce 08/25/2024 10:5 9 AM CDT Impressions 08/25/2024 2:48 PM CDT 1. Hepatic and splenic iron deposition which can be seen in setting of secondary hemochromatosis. 2. Unchanged hepatic and splenic hemangiomas. No suspicious hepatic lesion. Dictated by: Bj Short MD The radiology attending physician has personally reviewed this study, and had reviewed and/or edited this written report and agrees with it. Electronically signed by: Agnes Álvarez M.D. Narrative 08/25/2024 2:48 PM CDT EXAMINATION: MAGNETIC RESONANCE IMAGING OF THE ABDOMEN WITH AND WITHOUT CONTRAST HISTORY: Liver disease TECHNIQUE: Magnetic resonance imaging of the abdomen was performed prior to and following the uneventful administration of intravenous Gadolinium contrast. Protocol: Liver Contrast: Contrast: Eovist 10 mL COMPARISON: 07/29/2024, 04/03/2022 FINDINGS: Liver: Severe iron deposition. No surface nodularity. - Bile ducts: Normal - Focal liver lesions: A 2 cm hemangioma within segment 2 is unchanged dating back to 2021. No suspicious lesion. - Vasculature: Portal splenic veins are patent. Gallbladder: Cholecystectomy Pancreas: Normal Spleen: Severe iron deposition. Unchanged hemangioma. Adrenals: Normal Kidneys: Atrophic [place] kidneys with scattered cysts. No suspicious renal lesion or hydronephrosis. Other Findings: No abdominal lymphadenopathy. No suspicious osseous lesions. Procedure Note Agnes Álvarez MD - 08/25/2024 EXAMINATION: MAGNETIC RESONANCE IMAGING OF THE ABDOMEN WITH AND WITHOUT CONTRAST HISTORY: Liver disease TECHNIQUE: Magnetic resonance imaging of the abdomen was performed prior to and following the uneventful administration of intravenous Gadolinium contrast. Protocol: Liver Contrast: Contrast: Eovist 10 mL COMPARISON: 07/29/2024, 04/03/2022 FINDINGS: Liver: Severe iron deposition. No surface nodularity. - Bile ducts: Normal - Focal liver lesions: A 2 cm hemangioma within segment 2 is unchanged dating back to 2021. No suspicious lesion. - Vasculature: Portal splenic veins are patent. Gallbladder: Cholecystectomy Pancreas: Normal Spleen: Severe iron deposition. Unchanged hemangioma. Adrenals: Normal Kidneys: Atrophic [place] kidneys with scattered cysts. No suspicious renal lesion or hydronephrosis. Other Findings: No abdominal lymphadenopathy. No suspicious osseous lesions. IMPRESSION: 1. Hepatic and splenic iron deposition which can be seen in setting of secondary hemochromatosis. 2. Unchanged hepatic and splenic hemangiomas. No suspicious hepatic lesion. Dictated by: Bj Short MD The radiology attending physician has personally reviewed this study, and had reviewed and/or edited this written report and agrees with it. Electronically signed by: Agnes Álvarez M.D. us Pierre Bergeron MD IMG MRI PROCEDURES Olena l Result * (ABNORMAL) eGFR (07/29/2024 8:36 AM DISPENSING AUDIOLOGIST) eGFR 4(L) >=60 mL/min/1. 73 m2 Comment: Interpretive Data Reference Interval Normal >/= 90 mL/min/1.73m2 Mildly decreased* 60 - 89 mL/min/1.73m2 Mildly to moderately decreased 45 - 59 mL/min/1.73m2 Moderately to severely decreased 30 - 44 mL/min/1.73m2 Severely decreased 15 - 29 mL/min/1.73m2 Kidney Failure < 15 mL/min/1.73m2 *Relative to young adult level Estimated glomerular filtration rate is determined by the 2020 CKD-EPI equation recommended by the National Kidney Foundation (A Unifying Approach to GFR Estimation: Recommendations of the NKF-ASK Task Force on Reassessing the Inclusion of Race in Diagnosing Kidney Disease, JASN 2020). The CKD-EPI equation should not be used for patients with unstable renal function and has not been validated in children and those over 70. Current interpretive data was last reviewed 2021. Blood 07/29/2024 8:36 AM DISPENSING AUDIOLOGIST 07/29/2024 8:36 AM DISPENSING AUDIOLOGIST us Bradley Laureano MD LAB BLOOD ORDERABLE S Final Result [facility] [id number] Department [place] [address] * Hepatitis panel, acute Blood (01/02/2024 8:45 AM CDT) Hep A IgM Nonreactive Nonreactive Comment: Interpretive Data: If Hep A IgM Ab is reported as Equivocal, a new sample should be drawn in two weeks for testing. Current interpretive data was last revised on 19. Hep B core IgM Nonreactive Nonreactive [facility] Comment: Interpretive Data If HepB Core IgM Ab is reported as Equivocal, a new sample should be drawn in two weeks for testing. Current interpretive data was last revised on 19. Hep C Ab Nonreactive Nonreactive [facility] Comment: Interpretive Data Nonreactive: Antibodies to HCV not detected. Does NOT exclude the possibility of recent exposure to HCV. Equivocal: Equivocal for HCV antibodies. Supplemental molecular testing will be automatically performed to determine infection status in accordance with current CDC screening recommendations. Reactive: Positive for HCV antibodies. This may represent current or past HCV infection. Supplemental molecular testing will be automatically performed to determine current infection status in accordance with current CDC screening recommendations. Interpretive data was last revised on 2019. HepBsAg Nonreactive Nonreactive [facility] Blood 01/02/2024 8:45 AM CDT 01/02/2024 8:48 AM CDT Ramon Pastor MD LAB MICROBIOLOGY - GENERAL ORD ERABLES Final Result Performing Organization Address City/State/[place] Phone Number [facility] [id number] [place] [place] [address] * COLONOSCOPY (03/11/2023 7:38 AM CDT) Anatomical Region Laterality Modality Other Narrative Procedure Note Julio C Saavedra MD - 03/11/2023 7:38 AM CDT - [facility] Endoscopy Lab Patient Name: Daniel Rivera Procedure Date: 03/11/2023 7:38 AM Date of : 1955 Admit Type: Outpatient Age: 68 Gender: Female Note Status: Finalized Attending MD: Julio C Saavedra M.D. Procedure Date: 03/11/2023 Procedure: Colonoscopy Indications: High risk colon cancer surveillance: Personalhistory of colon cancer, Last colonoscopy: January 2022 Providers: Julio C Saavedra M.D., Sameer Albarran DO NOT USE, NOTAT THIS ADDRESS, AA (Anesthesia Staff), Theodora Olivera RN, Amor Mcdonald, Director Environmental Referring MD: Pierre Bergeron MD Medicines: Monitored Anesthesia Care Complications: No immediate complications. Estimated Blood Loss: Estimated blood loss: none. Procedure: Pre-Anesthesia Assessment: - Airway Examination: small/crowded oropharyngeal airway. - Respiratory Examination: clear to auscultation. - ASA Grade Assessment: III - A patient with severe systemic disease. - After reviewing the risks and benefits, thepatient was deemed in satisfactory condition to undergo the procedure. - The risks and benefits of the procedure and the sedation options and risks were discussed with the patient. All questions were answered and informed consent was obtained. After I obtained informed consent, the scope was passed under direct vision. Throughout theprocedure, the patient's blood pressure, pulse, and oxygen saturations were monitored continuously. The scopewas passed under direct vision. The Colonoscope was introduced through the anus and advanced to the the ileocolonic anastomosis. The colonoscopy wasperformed with ease. The patient tolerated the procedurewell. The quality of the bowel preparation was good. The bowel preparation used was SUPREP via split dose instruction. Bowel prep was administered using asplit dose. Findings: The perianal and digital rectal examinations were normal. The anastomosis appeared normal. Internal hemorrhoids were found during retroflexion. The hemorrhoids were moderate. Impression: - The colonic anastomosis is normal. - Internal hemorrhoids. - No specimens collected. Recommendation: - Repeat colonoscopy in 3 years for surveillance. - Discharge patient to home (ambulatory). Procedure Code(s): --- Professional --- G0105, Colorectal cancer screening; colonoscopy on individual at high risk Diagnosis Code(s): --- Professional --- Z85.038, Personal history of other malignantneoplasm of large intestine K64.8, Other hemorrhoids CPT copyright 2020 [employer]. All rights reserved. The codes documented in this report are preliminary and upon cattyman reviewmay be revised to meet current compliance requirements. Electronically signed by Julio C Saavedra MD Julio C Saavedra M.D. 03/11/2023 8:46:31 AM Number of Addenda: 0 Note Initiated On: 03/11/2023 7:38 AM Julio C Saavedra MD ENDOSCOPY PROCEDURES Final Resul t * Hemoglobin A1c (11/28/2022 2:54 PM CDT) Hgb A1C 5.2 4.0 - 5.6 % [facility] MA Estimated Average Glucose 103 mg/dL [facility] [place] Comment: The ADA recommends reporting an estimated Average Glucose (eAG) with all Hemoglobin A1c results using the equation derived from a study of 507 normal and diabetic adults. Minority populations were underrepresented and children were not included. (Diabetes Care 31:3828-9859, 2008). The eAG is not equivalent to a fasting glucose. Blood 11/28/2022 2:54 PM CDT 11/28/2022 4:09 PM CDT us Lobito Melendez MD LAB BLOOD [place] [id number] [address] [place] [address] * (ABNORMAL) Lipid panel (05/13/2022 8:03 AM DISPENSING AUDIOLOGIST) Cholesterol 76 30 - 199 mg/dL [facility] MA Comment: Interpretive Data Ages < or = 19 years Acceptable: <170 mg/dL Borderline high: 170-199 mg/dL High: >or= 200 mg/dL Ages > or = 20 years Desirable: <200 mg/dL Borderline high: 200-239 mg/dL High: >or= 240 mg/dL Literature References: 1. Expert Panel on Integrated Guidelines for Cardiovascular Health and Risk Reduction in Children and Adolescents. Pediatrics 2011;128:S213 2. NCEP Expert Panel. Circulation 2004;110:227 Current Interpretive Data was last revised on 2018. Triglycerides 168(H) <=149 mg/dL [facility] MA Comment: Interpretive Data Ages < or = 9 years Acceptable: <75 mg/dL Borderline high: 75-99 mg/dL High: >or= 100 mg/dL Ages 10 to 20 years Acceptable: <90 mg/dL Borderline high: 90-129 mg/dL High: >or= 130 mg/dL Ages > or = 20 years Desirable: <150 mg/dL Borderline high: 150-199 mg/dL High: 200-499 mg/dL Very high: >or= 499 mg/dL Literature References: 1. Expert Panel on Integrated Guidelines for Cardiovascular Health and Risk Reduction in Children and Adolescents. Pediatrics 2011;128:S213 2. NCEP Expert Panel. Circulation 2004;110:227 Current Interpretive Data was last revised on 2018. HDL 26(L) >=40 mg/dL [place] Comment: Interpretive Data Ages < or = 19 years Acceptable: >45 mg/dL Borderline low: 40-45 mg/dL Low: <40 mg/dL Ages > or = 20 years Desirable: >or= 60 mg/dL Low: <40 mg/dL Literature References: 1. Expert Panel on Integrated Guidelines for Cardiovascular Health and Risk Reduction in Children and Adolescents. Pediatrics 2011;128:S213 2. NCEP Expert Panel. Circulation 2004;110:227 Current Interpretive Data was last revised on 2018. LDL, calculated 16 <=129 mg/dL [place] Comment: Interpretive Data Ages < or = 19 years Acceptable: <110 mg/dL Borderline high: 110-129 mg/dL High: >or= 130 mg/dL Ages > or = 20 years Optimal: <100 mg/dL Near optimal: 100-129 mg/dL Borderline high: 130-159 mg/dL High: >160 mg/dL Literature References: 1. Expert Panel on Integrated Guidelines for Cardiovascular Health and Risk Reduction in Children and Adolescents. Pediatrics 2011;128:S213 2. NCEP Expert Panel. Circulation 2004;110:227 Current Interpretive Data was last revised on 2018. Non-HDL Cholesterol 50 mg/dL [place] Comment: Interpretive Data Ages < or = 19 years Acceptable: <120 mg/dL Borderline high: 120-144 mg/dL High: >145 mg/dL Ages > or = 20 years When triglycerides are >200 mg/dL, Non-HDL cholesterol is a secondary target of therapy with treatment goals that are 30 mg/dL greater than the LDL cholesterol target. Literature References: 1. Expert Panel on Integrated Guidelines for Cardiovascular Health and Risk Reduction in Children and Adolescents. Pediatrics 2011;128:S213 2. NCEP Expert Panel. Circulation 2004;110:227 Current Interpretive Data was last revised on 2018. Chol/HDL ratio 3 [place] Blood 05/13/2022 8:03 AM DISPENSING AUDIOLOGIST 05/13/2022 8:03 AM DISPENSING AUDIOLOGIST us Anika Machado DO LAB [place]LOOD [place] [id number] [address] Department [place] [address] from Last 3 Months or Most Recently Relevant to Health Maintenance Insurance [facility] MEDICARE ADVANTAGE [facility] MEDICARE ADVANTAGE [facility] MEDICARE ADVANTAGE Advance Directives For more information, please contact: [phone] * Full Code (Latest Code Status on File) Date Activated Date Inactivated Comments 12/03/2022 2:33 PM 12/05/2022 6:13 PM * Full Code Date Activated Date Inactivated Comments 11/08/2022 7:04 AM 11/12/2022 9:34 PM * Full Code Date Activated Date Inactivated Comments 04/04/2022 4:42 PM 05/24/2022 9:09 PM * Full Code Date Activated Date Inactivated Comments 04/03/2022 1:48 PM 04/04/2022 8:23 AM * Full Code Date Activated Date Inactivated Comments 04/01/2022 3:19 PM 04/03/2022 1:35 PM Care Teams Technical Specialist Cytogenetics Relationship Specialty Start Date End Date Pierre Bergeron MD [address] [address] PCP - General 06/20/21 [place] [address] [place] [address] Consulting Physician Nephrology 06/24/21 [place] [address] [facility] [address] [place] [address] Consulting Physician Pulmonary Disease 06/24/21 Russell Mock MD [address] [place] [address] Consulting Physician Cardiology 06/24/21 Ramon Pastor MD [address] [place] [address] Consulting Physician Nephrology 01/03/22 Lobito Melendez MD [address] [place] [address] Consulting Physician Interventional Cardiology 01/03/22 Quentin Cardenas Jr., MD [address] [place] [address] Consulting Physician Cardiovascular Disease 05/24/22 Elva Kurtz MD [address] [facility] [id number] [place] [address] Consulting Physician Gynecologic Oncology 05/24/22 Jorge Luis Alvarez MD [address] [place] [address] Consulting Physician Cardiology 01/02/24
--- OUTSIDE RECORDS SUMMARY | 2024-11-05 13:02 | XMS_ITS | Data Portability ---
Author Organization [facility] Alma Rosa [facility] Address [address] [place] [address] Care Team Providers Care Accredited Pharmacy Technician Name Role Phone HARDEEP CORDON Finish Mender LE JEREZ Traffic Incident Management Manager PIERRE YBARRA Primary Care Provider Assessment Encounter Date Assessment Date Assessment LastModified by Organization Details LastModified Time 10/09/2023 10/09/2023 She is unable to perform her ADLs in her home without a functioning walker oajao Not available 10/09/2023 11:16:32 11/25/2023 11/25/2023 She is unable to perform her ADLs in her home without a functioning walker , she has RLE weakness ever since her lymph node resection for her cancer surgery. She also has osteoarthritis of the knees, obesity, recurrent falls as well as poor balance and gait instability. A walker rollator will meet her needs as a simple walker or cane will not allow her to seat and rest when she is tired. oajao Not available 11/25/2023 19:31:37 Plan of Treatment Reminders Order Date Submit Date Provider Last Modified By Organization Details Last Modified Time Details Appointments ANY 15 2024 11:30A M Pierre Ybarra MD Not available Not available Not available Lab HbA1 c (hem oglo bin A1c) , taylor silva 2023 024 [facility], [address], [address], [place], [address], 04/30/2024 08:28:02 mac ward 2023 024 [facility], [address], [address], [place], [address], 04/30/2024 08:28:01 HbA1 c (hem oglo bin A1c) , bloo d 2023 024 oajao [facility], [address], [address], [place], [address], 11/25/2023 21:44:38 lipi d pane l, seru m 2023 024 oajao [facility], [address], [address], [place], [address], 11/25/2023 14:45:[address]lo gist /onc olog ist refe rral - Hemo side jean carlos s? 2024 025 ATHABI Graham MD, [address], [address], 11/04/2024 15:40:[address] refe rral 2024 025 BELLA Torres MD, [address] [place], [address], 09/09/2024 14:36:43 Procedures None jay rded . Surgeries None jay rded . Imaging MAMM O, scre enin g, digi jose guadalupe, bila ravinder l 2024 025 [facility], [address] [facility], [place], [address], 11/04/2024 12:16:45 CT, abdo men + pelv is, w/o cont rast - Righ t side d mid abdo maricarmen l pain . Hist ory of letty zabala ma of the righ t colo n, s/p jay humberto ctom y 2024 025 [facility] Maryam norris (Radiology), [address], [place], [address], 07/29/2024 09:23:38 XR, ribs , unil ater al, w/ PA ches t - Pain , post erio r part of the left jay thor ax. Rece nt fall 2024 025 [facility] Maryam norris (Radiology), [address], [place], [address], 07/29/2024 17:46:45 MAMM O, scre enin g, bila ravinder l 2023 024 [facility] ([facility]), [address] [place], [address], 10/22/2023 09:26:21 Medication Orders Trul icit y 3 mg/0 .5 mL subc utan eous pen inje ctor 2024 025 [facility]13462, [address], [place], [place], [id number], 11/04/2024 12:16:33 Bact rim DS 800 mg-1 60 mg tabl et 2024 025 [facility] #56033, [address], [place], [place], [id number], 11/04/2024 12:14:55 ator vast atin 80 mg tabl et 2023 024 [facility] #68190, [address], [place], [place], [id number], 02/05/2024 10:27:40 Trul icit y 1.5 mg/0 .5 mL subc utan eous pen inje ctor 2023 024 [facility], [address], [place], [place], [id number], 11/04/2024 12:16:49 esci talo pram 5 mg tabl et 2023 024 [facility] #11416, [address], [place], [place], [id number], 02/05/2024 10:09:58 Trul icit y 0.75 mg/0 .5 mL subc utan eous pen inje ctor 2023 [facility] #88925, [address], [place], [place], [id number], 02/05/2024 10:23:39 Patient TargetsNo targets recorded. Patient Instructions Encounter Date Encounter Id Patient Instructions Last Modified By Organization Details Last Modified Time 10/09/2023 [id number] When You Want to Lose Weight: Care Instructions oajao Not available 10/09/2023 09:45:58 learning about breast cancer screening oajao Not available 10/09/2023 09:13:26 Knee Xray report from [facility] Labs Walker Start Trulicity Follow up in 4 weeks oajao Not available 10/09/2023 11:18:18 11/25/2023 [id number] Walker Rollator as previously ordered Wean off Escitalopram and D/C Increase Trulicity to 1.5 mg weekly Continue all other medications Follow up as scheduled on 02/05/2024 oajao Not available 11/25/2023 19:33:26 02/05/2024 [id number] Stop Meloxicam a s her thumb pain has resolved. Labs Follow up in 6 months and PRN Schedule the annual COVID vaccine oajao Not available 02/05/2024 10:31:03 07/15/2024 [id number] abdominal pain: care instructions oajao Not available 07/15/2024 09:43:[address] GI Follo w up in 4 weeks oajao Not available 07/15/2024 09:45:34 11/04/2024 [id number] mammogram: about this test oalin Not available 11/04/2024 12:05:32 Hematology Bactrim once a day MMG Increase Trulicity to 3 mg weekly Follow up in 7-8 weeks oamignono Not available 11/04/2024 12:16:44 Reason for Referral Test Fixture Designer Referral for Abdominal pain Right sided mid abdominal pain. History of adenocarcinoma of the right colon, s/p hemicolectomy Referring Physician: Pierre Ybarra, Internal Medicine, Encounter Date: 07/15/2024 Hemosiderosis? Referring Physician: Pierre Ybarra, Internal Medicine, Encounter Date: 11/04/2024 Results Created Date Observation Date Name Description Value Unit Range Abnormal Flag Note LastModifiedBy Organization Detail LastModifiedTime 04/29/20 24 04/30/2024 LIPID PANEL cholesterol, total 133 mg/dL 100-19 9 Not Available [facility] ([facility]) [address] [place], [address], 04/30/2024 08:28:01 04/29/20 24 04/30/2024 LIPID PANEL triglyceride s 119 mg/dL 0-149 Not Available [facility] ([facility]) [address] [place], [address], 04/30/2024 08:28:01 04/29/20 24 04/30/2024 LIPID PANEL HDL cholesterol 70 mg/dL >39 Not Available [facility] ([facility]) [address] [place], [address], 04/30/2024 08:28:01 04/29/20 24 04/30/2024 LIPID PANEL VLDL cholesterol junior 21 mg/dL 5-40 Not Available [facility] ([facility]) [address] [place], [address], 04/30/2024 08:28:01 04/29/20 24 04/30/2024 LIPID PANEL LDL chol calc ([facility]) 42 mg/dL 0-99 Not Available [facility] ([facility]) [address] [place], [address], 04/30/2024 08:28:01 04/29/20 24 04/30/2024 HEMOG LOBIN A1C hemoglobin A1C 5.1 % 4.8-5. 6 Predi abete s: 5.7 - 6.4 Diabe niru: >6.4 Glyce dewayne contr ol for adult s with diabe niru: <7.0 Not Available [facility] ([facility]) [address] [place], [place], [address], 04/30/2024 08:28:02 07/27/19 25 07/27/2024 Gas and Carbo n monox kae panel - Venou s blood pH of venous blood 7.48 pH low: 7.32pH high: 7.42pH high pH Venou s 7.48 (H) 7.32 - 7.42 pH 07/27 8:15 AM MANAGER BRANCH [facility] RESP THERA PY Not Available Not Available 07/27/2024 10:46:34 07/27/19 25 07/27/2024 Gas and Carbo n monox kae panel - Venou s blood pO2 venous 34 text: 35 - 40 mmHg low pO2 Venou s 34 (L) 35 - 40 mmHg 07/27 8:15 AM MANAGER BRANCH [facility] RESP THERA PY Not Available Not Available 07/27/2024 10:46:34 07/27/19 25 07/27/2024 Gas and Carbo n monox kae panel - Venou s blood pCO2 venous 56 text: 40 - 50 mmHg high pCO2 Venou s 56 (H) 40 - 50 mmHg 07/27 8:15 AM MANAGER BRANCH [facility] RESP THERA PY Not Available Not Available 07/27/2024 10:46:34 07/27/19 25 07/27/2024 Gas and Carbo n monox kae panel - Venou s blood bicarbonate [moles/volum e] in venous blood 41.7 mmol/ L low: 24mmol /Lhigh : 26mmol /L high HCO3 Venou s 41.7 (H) 24 - 26 mmol/ L 07/27 8:15 AM MANAGER BRANCH [facility] RESP THERA PY Not Available Not Available 07/27/2024 10:46:34 07/27/19 25 07/27/2024 Gas and Carbo n monox kae panel - Venou s blood base excess venous 16.1 mmol/ L low: -2mmol /Lhigh : 2mmol/ L high Base Exces s Venou s 16.1 (H) -2.0 - 2.0 mmol/ L 07/27 8:15 AM MANAGER BRANCH [facility] RESP THERA PY Not Available Not Available 07/27/2024 10:46:34 07/27/19 25 07/27/2024 Gas and Carbo n monox kae panel - Venou s blood oxyhemoglobi n venous 57.2 % Oxyhe moglo bin Venou s 57.2 % 07/27 8:15 AM MANAGER BRANCH [facility] RESP THERA PY Not Available Not Available 07/27/2024 10:46:34 07/27/19 25 07/27/2024 Gas and Carbo n monox kae panel - Venou s blood deoxyhemoglo bin (hhb) venous % 41.1 % Deoxy hemog lobin (HHB) Venou s % 41.1 % 07/27 8:15 AM MANAGER BRANCH [facility] RESP THERA PY Not Available Not Available 07/27/2024 10:46:34 07/27/19 25 07/27/2024 Gas and Carbo n monox kae panel - Venou s blood methemoglobi n/hemoglobin .total in blood low: 0%high : 2% Methe moglo bin <0.8 0.0 - 2.0 % 07/27 8:15 AM MANAGER BRANCH [facility] RESP THERA PY Not Available Not Available 07/27/2024 10:46:34 07/27/19 25 07/27/2024 Gas and Carbo n monox kae panel - Venou s blood carboxyhemog lobin/hemogl obin.total in blood 1.1 % low: 0%high : 2% Carbo xyhem oglob in 1.1 0.0 - 2.0 % 07/27 8:15 AM MANAGER BRANCH [facility] RESP THERA PY Not Available Not Available 07/27/2024 10:46:34 07/27/19 25 07/27/2024 Gas and Carbo n monox kae panel - Venou s blood oxygen content in venous blood 7.8 mL/dL O2 Simba nt Venou s 7.8 ml/dL 07/27 8:15 AM MANAGER BRANCH [facility] RESP THERA PY Not Available Not Available 07/27/2024 10:46:34 07/27/19 25 07/27/2024 Gas and Carbo n monox kae panel - Venou s blood hemoglobin [mass/volume ] in blood by oximetry 9.7 g/dL low: 12g/dL high: 15.6g/ dL low Hemog lobin by COOX 9.7 (L) 12.0 - 15.6 g/dL 07/27 8:15 AM MANAGER BRANCH [facility] RESP THERA PY Not Available Not Available 07/27/2024 10:46:34 07/27/19 25 07/27/2024 Gas and Carbo n monox kae panel - Venou s blood oxygen [partial pressure] saturation adjusted to 0.5 in venous blood 58 % low: 70% low O2 Satur ation Venou s 58 (L) >=70 % 07/27 8:15 AM MANAGER BRANCH [facility] RESP THERA PY Not Available Not Available 07/27/2024 10:46:34 07/27/19 25 07/27/2024 Gas and Carbo n monox kae panel - Venou s blood sodium [moles/volum e] in serum or plasma 137 mmol/ L low: 135mmo l/Lhig h: 145mmo l/L Sodiu m Whole Blood 137 135 - 145 mmol/ L 07/27 8:15 AM MANAGER BRANCH [facility] RESP THERA PY Not Available Not Available 07/27/2024 10:46:34 07/27/19 25 07/27/2024 Gas and Carbo n monox kae panel - Venou s blood potassium [moles/volum e] in serum or plasma 5.4 mmol/ L low: 3.5mmo l/Lhig h: 5.5mmo l/L Potas sium Whole Blood 5.4 3.5 - 5.5 mmol/ L 07/27 8:15 AM MANAGER BRANCH [facility] RESP THERA PY Not Available Not Available 07/27/2024 10:46:34 07/27/19 25 07/27/2024 Gas and Carbo n monox kae panel - Venou s blood chloride [moles/volum e] in serum or plasma 100 mmol/ L low: 101mmo l/Lhig h: 111mmo l/L low Chlor kae WB 100 (L) 101 - 111 mmol/ L 07/27 8:15 AM MANAGER BRANCH [facility] RESP THERA PY Not Available Not Available 07/27/2024 10:46:34 07/27/19 25 07/27/2024 Gas and Carbo n monox kae panel - Venou s blood calcium.ioni zed [moles/volum e] in blood 1.02 mmol/ L Calci um Ioniz ed 1.02 mmol/ L 07/27 8:15 AM MANAGER BRANCH [facility] RESP THERA PY Not Available Not Available 07/27/2024 10:46:34 07/27/19 25 07/27/2024 Gas and Carbo n monox kae panel - Venou s blood calcium.ioni zed [moles/volum e] adjusted to pH 7.4 in blood 1.05 mmol/ L low: 1.19mm ol/Lhi gh: 1.34mm ol/L low Ioniz ed Calci um pH Adjus arcenio 1.05 (L) 1.19 - 1.34 mmol/ L 07/27 8:15 AM MANAGER BRANCH [facility] RESP THERA PY Not Available Not Available 07/27/2024 10:46:34 07/27/19 25 07/27/2024 Gas and Carbo n monox kae panel - Venou s blood anion gap in blood 1 mmol/ L low: 8mmol/ Lhigh: 18mmol /L low Anion Gap (AG) Arter ial 1 (L) 8 - 18 mmol/ L 07/27 8:15 AM MANAGER BRANCH [facility] RESP THERA PY Not Available Not Available 07/27/2024 10:46:34 07/27/19 25 07/27/2024 Gas and Carbo n monox kae panel - Venou s blood glucose [mass/volume ] in blood 84 mg/dL low: 70mg/d Lhigh: 99mg/d L Gluco se WB 84 70 - 99 mg/dL 07/27 8:15 AM MANAGER BRANCH [facility] RESP THERA PY Not Available Not Available 07/27/2024 10:46:34 07/27/19 25 07/27/2024 Gas and Carbo n monox kae panel - Venou s blood lactate [moles/volum e] in blood 1 mmol/ L high: 2mmol/ L Lacti c Acid Whole Blood 1.0 <=2.0 mmol/ L 07/27 8:15 AM MANAGER BRANCH [facility] RESP THERA PY Not Available Not Available 07/27/2024 10:46:34 07/27/19 25 07/27/2024 Gas and Carbo n monox kae panel - Venou s blood Unknown Analyte TEST PERFOR MED BY A [facility] Test perfo rmed by a [facility] Provi mayda Not Available Not Available 07/27/2024 10:46:34 07/27/19 25 07/27/2024 Gas and Carbo n monox kae panel - Venou s blood interpretati on and review of laboratory results ABNORM AL Not Available Not Available 10:46:34 07/27/19 25 07/27/2024 Gluco se [Mass /volu me] in Arter ial blood glucose [mass/volume ] in capillary blood by glucometer 97 mg/dL low: 70mg/d Lhigh: 99mg/d L Gluco se WB/PO C 97 70 - 99 mg/dL 07/27 7:55 AM MANAGER BRANCH [facility] Not Available Not Available 07/27/2024 10:46:34 07/27/19 25 07/27/2024 Gluco se [Mass /volu me] in Arter ial blood specimen source identified VENOUS Speci men Type Venou s 07/27 7:55 AM MANAGER BRANCH [facility] Not Available Not Available 07/27/2024 10:46:34 10/13/19 25 10/12/2024 Basic metab olic 2000 panel - Serum or Plasm a glucose [mass/volume ] in serum or plasma 113 mg/dL low: 70mg/d Lhigh: 99mg/d L high Gluco se 113 (H) 70 - 99 mg/dL 10/12 6:59 AM CDT [facility] Not Available Not Available 10/18/2024 17:56:57 10/13/19 25 10/12/2024 Basic metab olic 1999 panel - Serum or Plasm a sodium [moles/volum e] in serum or plasma 141 mmol/ L low: 136mmo l/Lhig h: 145mmo l/L Sodiu m 141 136 - 145 mmol/ L 10/12 6:59 AM CDT [facility] Not Available Not Available 10/18/2024 17:56:57 10/13/19 25 10/12/2024 Basic metab olic 1999 panel - Serum or Plasm a potassium [moles/volum e] in serum or plasma 4.7 mmol/ L low: 3.5mmo l/Lhig h: 5.1mmo l/L Potas sium 4.7 3.5 - 5.1 mmol/ L 10/12 6:59 AM CDT [facility] Not Available Not Available 10/18/2024 17:56:57 10/13/19 25 10/12/2024 Basic metab olic 1999 panel - Serum or Plasm a chloride [moles/volum e] in serum or plasma 98 mmol/ L low: 98mmol /Lhigh : 107mmo l/L Chlor kae 98 98 - 107 mmol/ L 10/12 6:59 AM CDT [facility] Not Available Not Available 10/18/2024 17:56:57 10/13/19 25 10/12/2024 Basic metab olic 1999 panel - Serum or Plasm a carbon dioxide, total [moles/volum e] in serum or plasma 28 mmol/ L low: 22mmol /Lhigh : 29mmol /L CO2 28 22 - 29 mmol/ L 10/12 6:59 AM CDT [facility] Not Available Not Available 10/18/2024 17:56:57 10/13/19 25 10/12/2024 Basic metab olic 1999 panel - Serum or Plasm a calcium [mass/volume ] in serum or plasma 10.1 mg/dL low: 8.4mg/ dLhigh : 10.4mg /dL Calci um 10.1 8.4 - 10.4 mg/dL 10/12 6:59 AM CDT [facility] Not Available Not Available 10/18/2024 17:56:57 05/0610/12/2024 [employer] 1999 panel - Serum or Plasm a anion gap in blood by calculation 15 mmol/ L low: 6mmol/ Lhigh: 16mmol /L Anion Gap 15 6 - 16 mmol/ L 10/12 6:59 AM CDT [facility] Not Available Not Available 10/18/2024 17:56:57 10/13/19 25 10/12/2024 Basic metab olic 1999 panel - Serum or Plasm a urea nitrogen [mass/volume ] in serum or plasma 35 mg/dL low: 7mg/dL high: 26mg/d L high BUN 35 (H) 7 - 26 mg/dL 10/12 6:59 AM CDT [facility] Not Available Not Available 10/18/2024 17:56:57 10/13/19 25 10/12/2024 Basic Realm 2000 panel - Serum or Plasm a creatinine [mass/volume ] in serum or plasma 7.09 mg/dL low: 0.57mg /dLhig h: 1.11mg /dL high Creat inine 7.09 (H) 0.57 - 1.11 mg/dL 10/12 6:59 AM CDT [facility] Not Available Not Available 10/18/2024 17:56:57 10/13/1910/12/2024 Basic Realm 1999 panel - Serum or Plasm a glomerular filtration rate [volume rate/area] in serum, plasma or blood by creatinine-b ased formula (CKD-epi 2020)/1.73 sq M 6 text: >=90 mL/min /1.73 m2 low eGFR by CKD-E PI 6 (L) >=90 mL/mi n/1.7 3 m2 10/12 6:59 AM CDT [facility] Not Available Not Available 10/18/2024 17:56:57 10/13/19 25 10/12/2024 Basic [employer] 1999 panel - Serum or Plasm a interpretati on and review of laboratory results ABNORM AL Not Available Not Available 17:56:57 10/02/19 24 09/26/2023 emerg ency dept. visit * No observ ation record ed. [facility] [address] [place], [address], 10/09/2023 09:20:32 10/22/19 24 10/21/2023 MAMMO , scree thor, bilat eral No observ ation record ed. [facility] [address], [place], [address], 11/25/2023 14:46:00 07/29/19 25 07/29/2024 CT, abdom en + pelvi s, w/o contr ast No observ ation record ed. [facility] [address], [place], [address], 11/04/2024 11:53:05 07/29/19 25 07/29/2024 XR, ribs, unila teral , w/ PA chest No observ ation record ed. [facility] [address], [place], [address], 11/04/2024 11:53:05 08/26/19 25 08/25/2024 MRI, liver , w/wo contr ast No observ ation record ed. [facility] [address], [place], [address], 11/04/2024 12:02:13 Result Notes None recorded. Problems Name Problem SNOMED Code Status Onset Date Resolution Date Notes Provider Name and Address Organization Details Recorded Time History of total hysterecto my 561840267 Active 2018 Not Available [facility] 4 21:41:35 Osteoarthr itis of knee 440706822 Active 2019 Not Available [facility] 4 21:41:35 Disorder of coronary artery 766462119 Active 2019 Not Available [facility] 4 21:41:35 Cardiomega ly 1846443 Active 2019 Not Available [facility] 4 21:41:36 Urinary tract infectious disease 26496278 Active Not Available [facility] 4 21:41:36 Allergic urticaria 23359774 Active Not Available [facility] 4 21:41:35 Inflammati on of sacroiliac joint 09582159 Active 2021 Not Available [facility] 4 21:41:35 Pneumonia 392470174 Active Not Available [facility] 4 21:41:35 History of malignant neoplasm of colon 945553266 Active 2022 Not Available [facility] 4 21:41:35 History of malignant neoplasm of vulva 155101768 Active 2022 Not Available [facility] 4 21:41:35 Pain of left hip joint 2994972449618 00 Active Not Available [facility] 4 21:41:35 Obstructiv e sleep apnea syndrome 81909709 Active 2022 Not Available [facility] 4 21:41:36 Osteoporos is 10757911 Active 2023 Pierre Ybarra MD Attn: Accounting ,[address] [place], [address] , [place] [facility] 4 11:16:05 Paroxysmal atrial fibrillati on 172060698 Active Pierre Ybarra MD Attn: Accounting ,[address] [place], [address] , [place] [facility] 4 10:17:58 Thoracic back pain 531592232 Active 2024 Pierre Ybarra MD Attn: Accounting ,[address] [place], [address] , [place] [facility] 5 09:39:30 Osteoarthr itis 426564306 Active Not Available [facility] 4 21:41:35 Disorder of lipid metabolism 447812066 Active Not Available [facility] 4 21:41:35 Polyp of colon 08030423 Active Not Available [facility] 4 21:41:35 Herpetic gingivosto matitis 02875253 Active Not Available [facility] 4 21:41:35 Diabetes mellitus 20657486 Active Not Available [facility] 4 21:41:36 End-stage renal disease 87648789 Active Not Available [facility] 4 21:41:35 Cough 81070955 Active Not Available [facility] 21:41:35 Problem Notes None recorded. Procedures Surgical History Date Name Laterality Status Provider Name and Address Organization Details Recorded Time 10/09/19 24 Diabetic Foot Exam completed Pierre Ybarra MD Attn: Accounting,[address] [facility], [place], [address], [place] [facility] 10/09/2023 09:46:32 03/11/20 23 colonoscopy completed Pierre Ybarra MD Attn: Accounting,[address] [facility], [place], [address], [place] [facility] 03/11/2023 09:58:33 03/11/20 23 colonoscopy completed Pierre Ybarra MD Attn: Accounting,[address] [facility], [place], [address], [place] [facility] 05/29/2023 11:07:13 03/26/20 22 vulvectomy completed Pierre Ybarra MD Attn: Accounting,[address] , [place], [address], [place] [facility] 04/02/2022 08:44:16 02/22/20 22 right colectomy completed Pierre Ybarra MD Attn: Accounting,[address] , [place], [address], [place] [facility] 02/26/2022 16:05:58 01/02/20 22 Colonoscopy completed Pierre Ybarar MD Attn: Accounting,[address], [place], [address], [place] [facility] 01/01/2022 15:21:26 01/02/20 22 Colonoscopy completed Pierre Ybarra MD Attn: Accounting,[address] , [place], [address], [place] [facility] 01/03/2022 08:49:10 12/27/19 22 EGD completed Pierre Ybarra MD Attn: Accounting,[address] [facility], [place], [address], [facility] - [facility] 12/31/2021 14:01:19 01/19/20 21 Colonoscopy completed Pierre Ybarra MD Attn: Accounting,[address] [facility], [place], [address], [facility] - [facility] 01/19/2021 08:52:54 04/01/20 19 Hemodialysis via av fistula completed Mirella Wang [facility] - [facility] 04/22/2019 09:36:25 Hemodialysis via av fistula completed Pierre Ybarra MD Attn: Accounting,[address] [facility], [place], [address], [facility] - [facility] 05/17/2016 12:05:29 Caesarean Section completed September [facility] - [facility] 04/29/2014 11:32:08 Carpal tunnel surgery completed September [facility] 04/29/2014 11:32:08 Imaging Results None recorded. Procedure Notes None recorded. Medical Equipment None Reported. Allergies Allergen ID Allergen Name Allergen Category Reaction Reaction Severity Criticality Documentation Date Start Date Code Code System Note Provider Name and Address Organization Details Recorded Time 689117 ciproflox acin medicatio n Not available Not available Not available 05/01/2021 2551 RxNorm Other react ions and sever ities : 'Adve rse react ion to subst ance' . Pierre Ybarra MD Attn: Accountin g,[address] [facility], [place], [address], [facility] - [facility] 4 10:17:44 945019 Eliquis medicatio n Not available Not available Not available 10/03/2022 69721 36 RxNorm Bleed ing Pierre Ybarra MD Attn: Accountin g,[address] [facility], [place], [address], [facility] - [facility] 3 09:58:30 1785 Product containin g penicilli n (product) medicatio n other Not available Not available 04/29/2014 20222 8001 SNOMED ? Pierre Ybarra MD Attn: Accountin g,[address] [facility], [place], [address], [place] [facility] 7 10:10:43 1786 Cipro medicatio n rash Not available [facility] 04/29/201489524 3 RxNorm Pierre Ybarra MD Attn: Melissa geller,[address] , [place], [address], [place] 4 14:48:41 Medications Name Sig Start Date Stop Date Status Note LastModified by Organization Details LastModified Time Prescript ion - New 07/16 completed Not Available Not Available Not Available losartan 50 mg tablet active Not Available Not Available Not Available cyclobenz aprine 10 mg tablet TAKE 1 TABLET BY MOUTH EVERY 8 HOURS 12/26 completed Not Available Not Available Not Available metolazon e 2.5 mg tablet active Not Available Not Available Not Available atorvasta tin 40 mg tablet TAKE 1 BY MOUTH DAILY 11/13 completed Not Available Not Available Not Available atorvasta tin 80 mg tablet TAKE 1 TABLET BY MOUTH EVERY DAY active Not Available Not Available No t Available prednison e 10 mg tablet 10/03 completed Not Available Not Available Not Available cefuroxim e axetil 250 mg tablet active Not Available Not Available Not Available bumetanid e 2 mg tablet active Not Available Not Available Not Available clindamyc in HCl 300 mg capsule active Not Available Not Available Not Available azithromy tre 250 mg tablet TAKE 2 TABLETS (500 MG) BY ORAL ROUTE ONCE DAILY FOR 1 DAY THEN 1 TABLET (250 MG) BY ORAL ROUTE ONCE DAILY FOR 4 DAYS 10/08 completed Not Available Not Available Not Available Lidocaine Viscous 2 % mucosal solution GARGLE AND SPIT OUT 15 ML FOUR TIMES DAILY NEEDED FOR 3 DAYS 08/16 completed Not Available Not Available Not Available fluconazo le 150 mg tablet TAKE 1 TABLET BY MOUTH ONCE 08/16 completed Not Available Not Available Not Available benzonata te 200 mg capsule Take 1 capsule 3 times a day by oral route as needed for 5 days, for Cough. 2024 active Not Available Not Available Not Avai lable sulfameth oxazole 400 mg-trimet hoprim 80 mg tablet Take 1 tablet every day by oral route for 7 days. 07/16 completed Not Available Not Available Not Available cephalexi n 250 mg capsule TAKE ONE CAPSULE BY MOUTH EVERY 12 HOURS FOR 7 DAYS 10/03 completed Not Available Not Available Not Available hydrocodo ne 5 mg-acetam inophen 325 mg tablet 03/07 completed Not Available Not Available Not Available sevelamer HCl 800 mg tablet 11/04 completed Not Available Not Available Not Available dexametha sone 6 mg tablet 08/16 completed Not Available Not Available Not Available midodrine 5 mg tablet TAKE 1 TABLET BY MOUTH MID DIALYSIS TREATMEN T NEEDED 10/08 completed Not Available Not Available Not Available Argelia-Kelsy Rx 1 mg-60 mg-300 mcg tablet TAKE 1 TABLET BY MOUTH DAILY active Not Available Not Available No t Available atenolol 25 mg tablet active Not Available Not Available Not Available Tylenol Arthritis Pain 650 mg tablet,ex tended release Take 2 tablets every 8 hours by oral route as needed for 15 days. 11/04 completed Not Available Not Available Not Available promethaz ine 6.25 mg-codein e 10 mg/5 mL syrup active Not Available Not Available Not Available metronida zole 500 mg tablet TAKE 1 TABLET BY MOUTH AT 7PM AND 11PM THE NIGHT BEFORE YOUR SURGERY 10/03 completed Not Available Not Available Not Available acetamino phen 300 mg-codein e 30 mg tablet TAKE 1 TABLET BY MOUTH FOUR TIMES DAILY NEEDED 07/15 completed Not Available Not Available Not Available clopidogr el 75 mg tablet TAKE 1 TABLET BY MOUTH EVERY DAY active Not Available Not Available No t Available allopurin ol 100 mg tablet TAKE 1 TABLET BY MOUTH DAILY active Not Available Not Available No t Available valacyclo vir 500 mg tablet Take 1 tablet every 12 hours by oral route for 1 day. 04/30 completed Not Available Not Available Not Available hydrocodo ne 10 mg-acetam inophen 325 mg tablet TAKE 1 TABLET BY MOUTH EVERY 6 HOURS NEEDED FOR PAIN active Not Available Not Available No t Available aspirin 81 mg tablet,de layed release Take 1 tablet every day by oral route. 07/15 completed Not Available Not Available Not Available tramadol 50 mg tablet TAKE 1 TABLET BY MOUTH TWICE DAILY NEEDED FOR SEVERE PAIN 07/15 completed Not Available Not Available Not Available triamcino lone acetonide 0.1 % topical cream APPLY THIN LAYER EXTERNAL LY TO THE AFFECTED AREA TWICE DAILY 12/05 completed Not Available Not Available Not Available ketorolac 30 mg/mL (1 mL) injection solution 30 mg by injectio n route. 10/22 completed Not Available Not Available Not Available glimepiri de 1 mg tablet one po daily 12/01 completed Not Available Not Available Not Available terconazo le 80 mg vaginal supposito ry 03/30 completed Not Available Not Available Not Available meloxicam 7.5 mg tablet TAKE 1 TABLET BY MOUTH EVERY DAY NEEDED FOR SEVERE PAIN only 02/04 completed Not Available Not Available Not Available oxycodone -acetamin ophen 5 mg-325 mg tablet TAKE 1 TABLET BY MOUTH EVERY 6 HOURS NEEDED 12/05 completed Not Available Not Available Not Available citalopra m 20 mg tablet TAKE 1 BY MOUTH DAILY 09/20 completed Not Available Not Available Not Available famotidin e 20 mg tablet 20 mg by oral route. 06/14 completed Not Available Not Available Not Available prednisol one acetate 1 % eye drops,[facility] 05/25 completed Not Available Not Available Not Available diphenhyd ramine 50 mg/mL injection solution 50 mg by injectio n route. 06/14 completed Not Available Not Available Not Available magnesium oxide 400 mg (241.3 mg magnesium ) tablet TAKE 1 TABLET BY MOUTH TWICE DAILY 10/03 completed Not Available Not Available Not Available amlodipin e 10 mg tablet active Not Available Not Available Not Available doxycycli ne monohydra te 100 mg capsule TAKE 1 CAPSULE BY MOUTH DAILY FOR 5 DAYS 11/04 completed Not Available Not Available Not Available gemfibroz il 600 mg tablet active Not Available Not Available Not Available hydrocodo ne 7.5 mg-acetam inophen 325 mg tablet TAKE 1 TABLET BY MOUTH EVERY 6 HOURS NEEDED FOR PAIN 11/04 completed Not Available Not Available Not Available cephalexi n 500 mg capsule TAKE 1 CAPSULE BY MOUTH TWICE DAILY UNTIL ALL TAKEN 10/03 completed Not Available Not Available Not Available pantopraz ole 40 mg tablet,de layed release TAKE 1 TABLET BY MOUTH DAILY active Not Available Not Available No t Available diphenhyd ramine 25 mg tablet Take 1 tablet every 4 hours by oral route as needed for 10 days. 12/05 completed Not Available Not Available Not Available Azostix strips 03/07 completed Not Available Not Available Not Available lidocaine 5 % topical patch 12/26 completed Not Available Not Available Not Available promethaz ine 25 mg tablet TAKE 1/2 TABLET BY MOUTH EVERY 6 HOURS NEEDED FOR NAUSEA active Not Available Not Available No t Available polymyxin B sulfate 10,000 unit-trim ethoprim 1 mg/mL eye drops 05/25 completed Not Available Not Available Not Available gabapenti n 300 mg capsule TAKE 1 CAPSULE BY MOUTH THREE TIMES DAILY NEEDED active Not Available Not Available No t Available omeprazol e 20 mg capsule,d elayed release TAKE 1 CAPSULE BY MOUTH EVERY DAY IN THE MORNING 10/03 completed Not Available Not Available Not Available diclofena c sodium 75 mg tablet,de layed release TAKE 1 TABLET BY MOUTH TWICE DAILY 12/26 completed Not Available Not Available Not Available lorazepam 1 mg tablet One TAB PO 1 hour before the MRI, it can be repeated only if anxious, right before the study 11/04 completed Not Available Not Available Not Available cefuroxim e axetil 500 mg tablet 03/07 completed Not Available Not Available Not Available polyethyl jagjit glycol 3350 17 gram/dose oral powder MIX ENTIRE BOTTLE WITH 64 OZ OF GATORADE AND DRINK FOLLOWIN G MD [place] NS active Not Available Not Available No t Available methylpre dnisolone 4 mg tablets in a dose pack FOLLOW PACKAGE DIRECTLINDSAY NS 07/05 completed Not Available Not Available Not Available albuterol sulfate HFA 90 mcg/actua tion aerosol inhaler INHALE 2 PUFFS INTO LUNGS TWICE DAILY active Not Available Not Available No t Available Vitamin D2 1,250 mcg (50,000 unit) capsule Take 1 capsule every week by oral route. 04/22 completed Not Available Not Available Not Available colchicin e 0.6 mg tablet TAKE 1 TABLET BY MOUTH DAILY FOR 14 DAYS 12/26 completed Not Available Not Available Not Available cefdinir 300 mg capsule active Not Available Not Available Not Available doxycycli ne hyclate 100 mg tablet active Not Available Not Available Not Available calcitrio l 0.25 mcg capsule active Not Available Not Available Not Available naproxen 500 mg tablet 12/26 completed Not Available Not Available Not Available amoxicill in 500 mg-potass ium clavulana te 125 mg tablet 09/20 completed Not Available Not Available Not Available Bactrim DS 800 mg-160 mg tablet Take 1 tablet every day by oral route as directed for 7 days, for Skin infectio n. 2024 active Not Available Not Available Not Avai lable midodrine 10 mg tablet TAKE 1 TABLET BY MOUTH THREE TIMES A WEEK WITH DIALYSIS . active Not Available Not Available No t Available escitalop bry 10 mg tablet TAKE 1 TABLET BY MOUTH EVERY DAY DIRECTED 02/04 completed Not Available Not Available Not Available Alcohol Prep Pads USE DIRECTED active Not Available Not Available No t Available escitalop bry 5 mg tablet 02/04 completed Not Available Not Available Not Available metoprolo l tartrate 25 mg tablet TAKE 1/2 TABLET BY MOUTH TWICE DAILY 12/26 completed Not Available Not Available Not Available Sensipar 30 mg tablet Take 0 mg by oral route. active I get that at [facility] Not Available Not Available Not Available Argelia-Kelsy 0.8 mg tablet TAKE 1 TABLET BY MOUTH EVERY DAY 11/04 completed Not Available Not Available Not Available nitrofura ntoin monohydra te/macroc rystals 100 mg capsule TAKE 1 CAPSULE BY MOUTH EVERY 12 HOURS FOR 7 DAYS 05/01 completed Nephrolo gist told her to stop Not Available Not Available Not Available duloxetin e 30 mg capsule,d elayed release TAKE 1 CAPSULE BY MOUTH EVERY DAY DIRECTED FOR MOOD active Not Available Not Available No t Available aspirin 81 mg po daily 12/26 completed Not Available Not Available Not Available Tums active Not Available Not Availa ble Not Available sevelamer carbonate 800 mg tablet TAKE 4 TABLETS BY MOUTH THREE TIMES DAILY WITH MEALS AND 1 TABLET TWICE DAILY WITH SNACKS active Not Available Not Available No t Available Protonix 40 mg granules delayed-r elease packet medicati on:Lizy nix 40 mg granules delayed release for susp packet d ose:0.0 route:P O freque ncy:ELAINE Y 12/26 completed Not Available Not Available Not Available Whitehouse Caps active Not Available Not Roxi ilable Not Available GaviLyte- G 236 gram-22.7 4 gram-6.74 gram-5.86 gram oral solution 11/13 completed Not Available Not Available Not Available Solu-Medr ol (PF) 125 mg/2 mL solution for injection 125 mg by injectio n route. 06/14 completed Not Available Not Available Not Available sodium,po tassium,m ag sulfates 17.5 gram-3.13 gram-1.6 gram oral soln TAKE THIS MEDICATI ON AT NOON AND 8 PM THE NIGHT BEFORE YOUR SURGERY 07/15 completed Not Available Not Available Not Available OneTouch Verio test strips TEST UP TO 4 TIMES PER DAY DIRECTED 11/04 completed Not Available Not Available Not Available Stimulant Laxative Plus 8.6 mg-50 mg tablet TAKE 2 TABLETS BY MOUTH NIGHTLY NEEDED FOR CONSTIPA TION active Not Available Not Available No t Available Virt-Caps 1 mg capsule TAKE 1 CAPSULE BY MOUTH DAILY 11/04 completed Not Available Not Available Not Available Trulicity 1.5 mg/0.5 mL subcutane ous pen injector ADMINIST ER 1.5 MG UNDER THE SKIN EVERY WEEK DIRECTED FOR DIABETES MELLITUS 11/04 completed Not Available Not Available Not Available Trulicity 0.75 mg/0.5 mL subcutane ous pen injector INJECT 0.75 MG SUBCUTAN EOUSLY WEEKLY 02/04 completed Not Available Not Available Not Available Trelegy Ellipta 100 mcg-62.5 mcg-25 mcg powder for inhalatio n INHALE 1 PUFF BY MOUTH EVERY DAY DIRECTED 11/04 completed Not Available Not Available Not Available OneTouch Delica Plus Lancet 33 gauge USE UP TO 4 TIMES PER DAY DIRECTED 11/04 completed Not Available Not Available Not Available Drizalma Sprinkle 30 mg capsule,d elayed release medicati on:dulox etine 30 mg Capsule, Delayed Release Sprinkle dose:0. 0 route:P O freque ncy:ELAINE Y 11/04 completed Not Available Not Available Not Available Trulicity 3 mg/0.5 mL subcutane ous pen injector Inject 3 mg every week by subcutan eous route as directed for 28 days, for DM. 2024 active Not Available Not Available Not Avai lable [place] 81 mg capsule medicati on:aspir in 81 mg capsule dose:0.0 route:P O freque ncy:ELAINE Y active Not Available Not Available No t Available Vitals Date Recorded Body height Body mass index (BMI) Body weight Heart rate Oxygen saturation Oxygen saturation in Arterial blood by Pulse oximetry Systolic blood pressure Diastolic blood pressure Provider Name and Address Organization Details Last Updated DateTime 5 144.78 cm 45 kg/m2 30776.2 1 g 85 /min 100 % 100 % 124 mm[Hg] 74 mm[Hg] Seble Martell MA [facility] 5 09:19:49 Date Recorded Body height Body mass index (BMI) Body weight Respiratory rate Oxygen saturation Oxygen saturation in Arterial blood by Pulse oximetry Heart rate Systolic blood pressure Diastolic blood pressure Provider Name and Address Organization Details Last Updated DateTime 4 144.78 cm 48.6 kg/m2 371458. 49 g 18 /min 97 % 97 % 74 /min 124 mm[Hg] 60 mm[Hg] Tracey Cuadra MA [facility] 4 09:16:48 Date Recorded Body height Body mass index (BMI) Body weight Heart rate Oxygen saturation Oxygen saturation in Arterial blood by Pulse oximetry Body temperature Respiratory rate Systolic blood pressure Diastolic blood pressure Provider Name and Address Organization Details Last Updated DateTime 5 144.78 cm 46.3 kg/m2 15178.0 5 g 91 /min 93 % 93 % 99 [degF] 18 /min 136 mm[Hg] 66 mm[Hg] Samantha Moreno MA [facility] 5 11:50:02 Date Recorded Body height Body mass index (BMI) Body weight Heart rate Oxygen saturation Oxygen saturation in Arterial blood by Pulse oximetry Body temperature Systolic blood pressure Diastolic blood pressure Provider Name and Address Organization Details Last Updated DateTime 4 144.78 cm 47.5 kg/m2 55780.8 8 g 80 /min 97 % 97 % 97.8 [degF] 130 mm[Hg] 70 mm[Hg] Tracey Cuadra MA [facility] 4 14:33:11 Date Recorded Body height Body mass index (BMI) Body weight Oxygen saturation Oxygen saturation in Arterial blood by Pulse oximetry Respiratory rate Heart rate Systolic blood pressure Diastolic blood pressure Provider Name and Address Organization Details Last Updated DateTime 4 144.78 cm 45.6 kg/m2 79519.2 7 g 96 % 96 % 16 /min 94 /min 104 mm[Hg] 58 mm[Hg] Tracey Cuadra [place] - [facility] 4 10:12:12 Social History Question Answer Notes LastModified by Organizat ion Details LastModified Time Tobacco Smoking Status Former Smoker September [facility] [place] - [place] 04/29/2014 11:32:07 Are You Blind Or Do You Have Difficulty Seeing? No Information n ot available 12/05/2020 What Is Your Level Of Caffeine Consumption? Heavy Information not available 07/16/2018 How Much Tobacco Do You Chew? None Information not available 07/16/2018 In The 14 Days Before Symptom Onset, Have You Had Close Contact With A Laboratory-confirm ed COVID-19 While That Case Was Ill? No Information n ot available 12/05/2020 In The 14 Days Before Symptom Onset, Have You Had Close Contact With A Person Who Is Under Investigation For COVID-19 While That Person Was Ill? No Information not available 12/05/2020 Have You Been To An Area Known To Be High Risk For COVID-19? Yes Information not available 12/05/2020 Are You Deaf Or Do You Have Serious Difficulty Hearing? No Information not available 12/05/2020 What Type Of Diet Are You Following? REGULAR Information n ot available 07/16/2018 Are There Any Guns Present In Your Home? No Information not available 08/25/2018 Hard Of Hearing Or Deaf In One Or Both Ears? No Information not available 07/16/2018 Legally Blind In One Or Both Eyes? No Information no t available 07/16/2018 What Was The Date Of Your Most Recent Tobacco Screening? 10/09/2023 Information not available 10/09/2023 Seat Belts Used Routinely Yes Information not available 08/25/2018 Smoke Alarm In Home Yes Information not available 08/25/2018 How Much Tobacco Do You Smoke? No oajao Information not available 05/17/2016 Sex: Unknown Functional Status Question Answer Note LastModified by Organizat ion Details LastModified Time What is your level of alcohol consumption? None Information not available 07/16/2018 Do you or have you ever used smokeless tobacco? Never used smokeless tobacco Information not available 03/07/2020 Are you able to care for yourself? Yes Information not available 12/05/2020 Do you or have you ever used e-cigarettes or vape? Never used electronic cigarettes Information not available 03/07/2020 What is your exercise level? None Information not available 08/25/2018 Mental Status None recorded. Family History Nothing Reported. Medical History Condition Response Diabetes Y High Blood Pressure Y Hypertension Y Kidney or Bladder Problems Y High Cholesterol Y Gynecological HistoryNo gynecological history recorded. Obstetrics History GPAL:G 0 P 0 0 0 0 Immunizations Vaccine Type Date Status Note Provider Nam e and Address Organization Details Recorded Time Influenza, split virus, quadrivalent, preservative 8 completed Not Available [facility] 06/27/2023 21:41:38 Influenza, split virus, quadrivalent, preservative 0 completed Not Available [facility] 06/27/2023 21:41:37 Influenza, split virus, quadrivalent, preservative 1 completed Not Available [facility] 06/27/2023 21:41:38 COVID-19 vaccine, vector-nr, rS-Ad26, PF, 0.5 mL 1 completed Not Available [facility] 06/27/2023 21:41:38 SARS-COV-2 (COVID-19) vaccine, UNSPECIFIED 1 completed Not Available [facility] 06/27/2023 21:41:38 Influenza, split virus, trivalent, preservative 6 completed Not Available [facility] 06/27/2023 21:41:38 Influenza, split virus, quadrivalent, PF 3 completed Not Available [facility] 06/27/2023 21:41:38 influenza, unspecified formulation 2 completed Not Available [facility] 06/27/2023 21:41:38 pneumococcal polysaccharide PPV23 7 completed Not Available [facility] 06/26/2019 02:46:40 Tdap 7 completed Not Available [facility] 06/26/2019 02:49:13 influenza, [id number] 5 completed Not Available [facility] 06/27/2023 21:41:38 Pneumococcal conjugate PCV 13 5 completed Not Available [facility] 06/27/2023 21:41:38 Influenza, split virus, quadrivalent, preservative 6 completed Not Available [facility] 06/27/2023 21:41:38 Pneumococcal conjugate PCV20, polysaccharide [id number] conjugate, adjuvant, PF 3 completed Tracey Cuadra MA [facility], [place] - [place] 05/29/2023 11:52:33 Influenza, split virus, quadrivalent, preservative 7 completed Not Available [facility] 06/27/2023 21:41:38 Past Encounters Encounter ID Performer Location Encounter Start Date Encounter Closed Date Diagnosis/Indication Diagnosis SNOMED-CT Code Diagnosis ICD10 Code Diagnosis Note [id number] Pierre Ybarra MD [facility] (Adult Med) [address] [place] [address] [phone] 04/29/2014 11:15:12 04/29/2014 12:36:00 Herpetic gingivostomatitis 18674033 Diabetes mellitus 79231811 HbA1c done 04/18/14 was 6.4 Continue current dose of Glimepirid e unless Dr Pastor thinks otherwise. Lowest blood sugar was 74 (without any symptoms) FBS 90/114/120 No role for QID testing, once a day testing should suffice. End-stage renal disease 03458839 Cough 04942715 Conserva ti ve management [id number] Pierre Ybarra MD [facility] (Adult Med) [address] [place] [address] [phone] 08/03/2014 14:54:11 08/03/2014 16:29:19 Diabetes mellitus 07679204 HbA1c done 07/27/14 was 5.2, she did lose 29lbs since her visit in March 2014 and in view of her hemodialys is, I will stop her Glimepirid e and monitor her blood sugar closely Pneumonia 048514914 59 y /o WF who was last seen in this office 04/29/2014 , in the interim she was admitted to the hospital 04/29/2014 - 4 with Hypotensio n during HD and Pneumonia. Her CXR 04/29/2014 did not reveal an infiltrate . Pneumovax 2013?, she needs Prevnar-13 Discharge summary from the hospital will be useful [id number] MD [facility] (Adult Med) [address] [place] [address] [phone] 12/01/2014 09:51:20 12/01/2014 10:43:52 Osteoarthritis 210537541 She was previously seen at [place] and she was told she would need TKR, however she was too heavy. She has since lost 55lbs and did not benefit from knee injections Diabetes mellitus 31512229 Labs are acceptable Screening mammography [id number] MD [facility] (Adult Med) [address] [place] [address] [id number] 03/14/2015 09:46:40 03/14/2015 10:26:05 Diabetes mellitus 55287470 E11.9 E78.0 Labs are acceptable Osteoarthritis 602345880 M19.90 She currently follows up with Dr. Michaels [facility] [id number] MD [facility] (Adult Med) [address] [place] [address] [id number] 07/13/2015 09:35:26 07/13/2015 10:31:32 Disorder of lipid metabolism 564046641 E78.9 Her LDl is suboptimal , I will increase her Lipitor to 80mg po daily. Side effects were discussed Diabetes mellitus 911768 09 E11.9 E78.0 Labs were discussed. Polyp of colon 22349923 K63.5 She thinks that her colonoscop y is due, I have called [facility] for a copy of her last colonoscop y, if they do not have it, the other option is [facility] [id number] MD [facility] (Adult Med) [address] [place] [address] [id number] 11/14/2015 11:01:16 11/14/2015 12:50:30 Disorder of lipid metabolism 331277489 E78.9 Her LDl is better. Diabetes mellitus 148991 09 E11.9 E78.0 Labs were discussed. [id number] MD [facility] (Adult Med) [address] [place] [address] [id number] 05/17/2016 10:39:46 05/17/2016 12:17:12 Atrial fibrillation 59398994 I48.91 She is s/p ablation and she has a loop recorder in place Hyperlipidemia 47164878 E78.5 Type 2 dwayne betes mellitus without complication 074254260 E11.9 Diabetes mellitus 433828 09 E11.9 Labs were discussed. [id number] MD [facility] (Adult Med) [address] [place] [address] [id number] 10/14/2016 11:01:58 10/14/2016 11:32:16 Paroxysmal atrial flutter 532950324 I48.92 Discharge summary from her 07/2016 admission. Disorder o f hyperalimentation 118091623 R63.2 Type 2 dwayne betes mellitus 25231479 E11.9 Hyperlipidemia 79798367 E78.5 Mild recur rent major depression 63233694 F33.0 [id number] Pierre Ybarra MD [facility] (Adult Med) [address] [place] [address] [phone] 03/11/2017 09:36:54 03/11/2017 10:18:12 Otitis media 66902138 H66.93 She has multiple allergies Headache 52938366 R51 Pruritic rash 56124672 L 28.2 Administra tion of pneumococcal vaccine 28480271 Z23 Administra tion of diphtheria, pertussis, and tetanus vaccine 173719085 Z23 [id number] MD [facility] (Adult Med) [address] [place] [address] [id number] 07/16/2018 14:59:07 07/17/2018 09:06:14 Screening for malignant neoplasm of breast 654266596 Z12.31 Type 2 dwayne betes mellitus without complication 674429915 E11.9 History of total hysterectomy 250265085 Z90.519 [id number] MD [facility] (Adult Med) [address] [place] [address] [id number] 08/25/2018 08:33:20 08/26/2018 11:29:23 Arthritis 3617284 M19.90 Trial of Meloxicam if there is no objection from her nephrologi st.Tylenol PRN [id number] [facility] (Adult Med) [address] [place] [phone] 0 04/22/2019 09:19:33 04/22/2019 10:20:06 Chest pain 00335187 R07.9 Went to [facility] ER for an acute 30 minute episode of mid-sterna l chest pain on 04/15/19.EK G and chest xray completed in the ER, EKG was normal and xray showed cardiomega ly and CHF pattern vs interstiti al edema.She was given Nitroglyce rin and ASA in the ER which resolved her chest pain.She was seen by Cardiology while hospitaliz ed, Lexiscan stress test completed and was normal.No chest pain since episode that [facility] has [facility]men t.- Advised to keep appointmen t with cardiology Gastroesop hageal reflux disease without esophagitis 380261196 K21.9 Hospital said her chest pain may be related to esophagus rather than cardiac issueDoes admit to taking TUMS after almost every meal- Will start trial of omeprazole to see if this improves her symptoms- Advised her to:1.Avoid lying flat 3 to 4 hours after eating or drinking. 2.Elevate the head of bed 4-8 inches. 3.Avoid tight clothing around the waist. 4.Decrease dietary fat intake. 5. Avoid acidic foods (citrus and tomato-bas ed products), alcohol, caffeinate d beverages, chocolate, onions, garlic, salt, and peppermint oil. 6. Avoid large meals. 7. Avoid drinking coffee, or carbonated beverages. 8. Weight loss can help with symptoms, try to diet and exercise. Paresthesi a of lower extremity [id number] R20.2 Complainin g of intermitte nt episodes of bilateral upper leg numbness and tingling that awakens her up at night.Epis odes seem to be becoming more frequentDe nies back painLab work in hospital showed normal electrolyt esLab work in hospital showed anemia (Hgb 9.1, likely due to CKD but MCV was 101), may want to consider checking Vit. B12 and folateSymp toms occur at night while sleeping on back- Advised patient to sleep in positions that promote comfort, such as her side with pillow between legs- Follow-up with Dr. Ybarra if symptoms continue [id number] MD [facility] (Adult Med) [address] [place] [address] 57840-988 0 05/25/2019 11:38:31 05/25/2019 12:43:18 Follow-up visit [id number] Z09 Generalize d osteoarthritis of the hand 131853378 M15.9 Pain in lower limb 52272 006 M79.604 M79.846 [id number] MD [facility] (Adult Med) [address] [place] [address] [phone] 0 06/22/2019 11:21:47 06/22/2019 12:15:58 Follow-up visit 471916783 Z09 Mixed anxi ety and depressive disorder 664056395 F41.8 Osteoarthr itis of knee 991241791 M17.9 Cardiomegaly 7178354 I51 .[address] scan Disorder o f coronary artery 625563627 I77.[address] scan [id number] MD [facility] ([facility]ult [facility]) [address] [place] [address] [phone] 0 08/03/2019 10:22:56 08/04/2019 11:08:51 Neuropathy 723218338 G62.9 Possibly a local issue and less likely vascular or diabetic neuropathy Postmenopausal state 764 50452 Z78.0 [id number] MD [facility] (Adult [facility]) [address] [place] [address] [phone] 0 08/13/2019 15:46:27 08/16/2019 12:49:05 Abscess 372873058 L02.91 Screening for malignant neoplasm of breast 525443442 Z12.31 [id number] MD [facility] (Adult [facility]) [address] [place] [address] [phone] 0 09/21/2019 09:31:00 09/21/2019 15:49:40 Disorder of lipid metabolism 028748082 E78.9 Follow-up visit 30280959 9 Z09 [id number] MD [facility] ([facility]ult [facility]) [address] [place] [address] [phone] 0 03/07/2020 10:27:09 03/07/2020 12:43:35 Mixed anxiety and depressive disorder 462700729 F41.8 Neuropathy 556831437 G62 .9 Her EMG/NCS suggests a right peroneal neuropathy .She now complains of lower back pain for the last 6 weeks Chronic low back pain 27 3249413 M54.5 Medication monitoring 39 8370809 Z51.81 Type 2 dwayne betes mellitus without complication 407231242 E11.9 Spasmodic movement 11906 6004 R25.3 [id number] MD [facility] (Adult [facility]) [address] [place] [address] [phone] 0 03/30/2020 09:22:24 03/31/2020 07:10:35 Pruritic rash 94356462 L28.2 Contact dermatitis ? Degenerati on of lumbar intervertebral disc 71842358 M51.36 The MRI suggests an annular bulge and degenerati ve lumbar disc disease [id number] MD [facility] (Adult [facility]) [address] [place] [address] [phone] 0 12/05/2020 10:38:15 12/05/2020 20:41:58 Screening mammography of bilateral breasts 4868281476 84173 Z12.31 Diabetes mellitus 137124 09 E11.9 Labs were discussed. [id number] Myron Can MD [facility] [address] [address] 2 01/25/2021 11:31:14 01/26/2021 15:45:21 Diabetes mellitus 36862598 E11.9 Diabetic p eripheral neuropathy 199416929 E11.40 Morbid obesity 931386403 E66.01 Osteoarthr itis of knee 322757012 M17.11 M17.12 Has failed all nonop tx, needs TKRRec Bariatric consult [id number] MD [facility] (Adult [facility]) [address] [place] [address] [phone] 05/01/2021 09:29:54 05/02/2021 08:03:19 Diabetes mellitus 43292239 E11.9 Immunization due 6127447 08 Z28.3 She plans to get her SARS COVID 19 vaccine booster [id number] MD [facility] ([facility]ult [facility]) [address] [place] [address] [phone] 0 07/05/2021 11:08:43 07/05/2021 13:29:40 Painful mouth 342471111 K13.79 Diabetes mellitus 217906 09 E11.9 Her last HBA1C was 5.1, I am of the opinion that her elevated BS may be from her recent course of CCS History of SARS-CoV-2 29 85614662 82713508 Z86.16 Immunization advised 310 410446 Z71.9 Follow-up visit 36740077 9 Z09 [id number] MD [facility] (Adult [facility]) [address] [place] [address] 32691-182 0 08/16/2021 10:31:13 08/17/2021 11:52:54 Diabetes mellitus 82916330 E11.9 Her last HBA1C was 5.1. Immunization advised 310 681222 Z71.9 Neuropathy 079168666 G62 .9 Her previous EMG/NCS had suggested a right peroneal neuropathy .Increase Gabapentin , side effects were discussed. Musculoskeletal pain 279 613689 M79.10 Continue TylenolXra ys [id number] MD [facility] (Adult [facility]) [address] [place] [address] 89755-360 0 08/30/2021 10:05:12 08/30/2021 12:14:50 Degeneration of lumbar intervertebral disc 34000698 M51.36 The MRI suggests an annular bulge and degenerati ve lumbar disc diseaseXra ys confirm DDDCDA and DS neededCons ider Tramadol once the lab results are reviewed Medication monitoring 39 5257018 Z51.81 Tremor 01146395 R25.1 Screening for malignant neoplasm of breast 454351093 Z12.31 Degenerati on of thoracic intervertebral disc 75877018 M51.34 Inflammati on of sacroiliac joint 16245455 M46.1 [id number] MD [facility] (Adult [facility]) [address] [place] [address] 58954-122 0 10/03/2022 08:48:02 10/04/2022 08:15:48 Immunization advised 301011144 Z71.9 Pain in left thumb 72679 63584 533878 M79.645 Diabetes mellitus 140131 09 E11.9 Her last HBA1C was 5.1. Screening for malignant neoplasm of breast 032248723 Z12.31 Follow-up visit 64411658 9 Z09 History of malignant neoplasm of vulva 932888202 Z85.44 History of malignant neoplasm of colon 418639655 Z85.038 History of partial resection of colon 493553739 Z90.49 [id number] MD [facility] (Adult [facility]) [address] [place] [address] 75763-579 0 12/26/2022 12:17:08 12/27/2022 13:36:07 Dysphonia 34858552 R49.9 Follow-up visit 07398205 9 Z09 Medication review done by doctor 358144504 Z76.89 [id number] MD [facility] (Adult [facility]) [address] [place] [address] 97675-422 0 05/29/2023 10:28:01 05/30/2023 16:15:32 Body mass index 40+ - severely obese 547726375 Z68.42 History of diabetes mellitus 071318352 Z86.39 Bilateral shoulder joint pain 2397894556 1668973 M25.512 M25.511 Administra tion of pneumococcal vaccine 52032281 Z23 Postmenopausal state 764 21656 Z78.0 Medication monitoring 39 2187238 Z51.81 Chronic back pain 214234 002 G89.29 Chronic pain 16013431 G8 9.29 Immunization advised 310 305610 Z71.9 [id number] MD [facility] (Adult [facility]) [address] [place] [address] 26877-349 0 08/07/2023 08:57:46 08/11/2023 09:27:17 Sore throat 021408857 J02.9 Cervical lymphadenitis 6088658 I88.9 Osteoporosis 33341457 M8 1.0 Pt education [id number] MD [facility] (Adult [facility]) [address] [place] [address] 59569-213 0 10/09/2023 08:27:58 10/13/2023 19:34:19 Screening for malignant neoplasm of breast 504720152 Z12.31 Impaired mobility 000251 05 Z74.09 Recurrent falls 38265405 2 R29.6 Osteoarthr itis of knee 921835005 M17.9 Immunization advised 310 696591 Z71.9 Diabetes mellitus 789623 09 E11.9 Start Trulicity, GI side effects were discussed Obesity 859702690 E66.9 [id number] MD [facility] (Adult [facility]) [address] [place] [address] 83782-653 0 11/25/2023 13:58:43 11/27/2023 15:16:46 Mixed anxiety and depressive disorder 805688267 F41.8 She is on both Citalopram and Duloxetine , she may not need both and I will wean her off the Citalopram Osteoarthr itis of knee 307091697 M17.9 Recurrent falls 79276221 2 R29.6 Diabetes mellitus 586350 09 E11.9 Increase Trulicity to 1.5 mg weekly, GI side effects were discussedS he has no history of Thyroid cancer.If the 1.5 mg dose is unavailabl e, she should continue the 00..75 mg dose. Abnormal g ait due to impairment of balance 332406366 R26.89 She has recurrent falls Weakness o f right lower limb 4733683543 76774 M62.81 [id number] [facility] [address] [place] [address] 58328-090 0 02/05/2024 09:26:22 02/06/2024 12:21:14 Diabetes mellitus 11600035 E11.9 HBA1C 4.9%On Trulicity to 1.5 mg weekly. Immunization advised 310 888207 Z71.9 [id number] MD [facility] (Adult Med) [address] [place] [address] 43701-873 0 07/15/2024 08:59:48 07/19/2024 12:34:31 History of malignant neoplasm of colon 173907769 Z85.038 Colonoscop y 03/11/2023 Q 3 years Chest wall pain 28925112 6 R07.89 Abdominal pain 66549234 R10.9 [id number] Pierre Ybarra MD [facility] (Adult Med) [address] [place] [address] 11/04/2024 11:22:08 11/05/2024 09:44:22 Lesion of liver 054870830 K76.9 MRI 08/25/2024 Hemangioma , iron deposits (Liver and spleen). There is a suggestion of hemosidero sis and it is unclear to me if this is normal in a patient with ESRF on HD. I will seek the opinion of her oncologist /hematolog ist. Note from 5CT 07/29/2024 Hepatic lesion 2 cm (Slightly larger), MRI recommende d MRI scan abnormal 748540 003 R93.89 MRI Hemangioma , iron deposits (Liver and spleen) Screening mammography 24 891805 Z12.31 Abscess of buttock 73664 003 L02.31 Diabetes mellitus 648971 09 E11.9 Increase Trulicity to 3 mg weekly, GI side effects were discussed. Upper resp iratory tract finding 828115763 R09.89 Health Concerns Section Related Observation LastModified by Organization Detai ls LastModified Time None Recorded Concern Status LastModified by Organization Details LastModified Time None Recorded Advance Directives Directive None Recorded Payers Encounter Date Sequence Insurance Name Policy Number Policy Hodgson Covered Member ID Hodgson Member ID Guarantor Name 10/09/2023 2 [place] MED[place]ARE OR MEDICARE REPLACEMENT PRIMARY) Daniel Dahmm [id number] Daniel Dahmm 10/09/[address] [facility] (MEDICARE REPLACEMENT/AD VANTAGE - PPO) [id number] Daniel S Dahmm [id number] Daniel Dahmm 11/25/2023 2 [place] MEDICARE REPLACEMENT PRIMARY) Daniel Dahmm [id number] Daniel Dahmm 11/25/[address] [facility] (MEDICARE REPLACEMENT/AD VANTAGE - PPO) [id number] Daniel S Dahmm [id number] Daniel Dahmm 02/05/2024 2 [place]ARE OR MEDICARE REPLACEMENT PRIMARY) Daniel Dahmm [id number] Daniel Dahmm 02/05/[address] [facility] (MEDICARE REPLACEMENT/AD VANTAGE - PPO) [id number] Daniel S Dam [id number] Daniel Dahmm 07/15/2024 2 [place]ARE OR MEDICARE REPLACEMENT PRIMARY) Daniel Dam [id number] Daniel Dahmm 07/15/[address] [facility] (MEDICARE REPLACEMENT/AD VANTAGE - PPO) [id number] Daniel S Dam [id number] Daniel Dahmm 11/04/2024 2 [place] WHEN [place]ARE OR MEDICARE REPLACEMENT PRIMARY) Daniel Dam [id number] Daniel Dahmm 11/04/[address] [facility] (MEDICARE REPLACEMENT/AD VANTAGE - PPO) [id number] Daniel S Dam [id number] Daniel Dam Notes Date Note Type Note Provider Name and Address Organization Details Recorded Time 10/09/2023 text/html KneeReported bypatient.Location:[facility] Quality:aching Severity:severe Duration:years Timing:acute; chronic Context:fall Associated Symptoms:no weakness; no numbness; no tingling; no swelling; no redness; no warmth; no ecchymosis; no catching/locking; no popping/clicking; no buckling; no grinding; no instability; no radiation down leg; no drainage; no fever; no chills; no weight loss; no change in bowel/bladder habits Previous Surgery:none Prior Imaging:x ray Previous Injections:none Previous PT:none Work Related:no Working:noObesityReport ed bypatient.Context:no inhaled steroids; no oral steroids Associated Symptoms:no depression; no chronic illness; no Prader-Willi Syndrome; no hypothyroidism Co-morbidities:no new co-morbidities since last visit Lifestyle changes:few constitutional symptoms related to diagnosis; no changes in living situation; motivated to continue lifestyle changes; losing weight; exercising more Medication Education:understands potential side effects; understands administration; understands role of diet as primary therapy The insurance company wanted more information about a new walkerI fell twice at homeThey said I had to lose 60 lbs, before I can have my knee surgeryAnd I got the thing in the mail about a Mammogram She needs a replacement walker because the one she currently has is in a state of disrepair, it was originally dispensed after her admission to [facility] with COVID a few years ago.She is unstable to walk around her home to complete her ADLs without a walker, as she is unstable without one. She is unstable when she walks, has severe osteoarthritis of her knees and since she had lymph node removal from groin, she has some right lower extremity weakness. She has had at least four falls this year and she was in the ER on 09/26/2023 with a contusion of the right knee. She desires additional 60 lb weight loss prior to knee replacement surgery, she has a history of well controlled DM and has no history of Thyroid cancer. Pierre Ybarra MD Attn: Accounting,[address] [place], [address], [facility] 10/09/2023 11:20:35 11/25/2023 text/html Diabetes F/URepo rted bypatient.Labs:last A1C result: 5.4 Context:normal range of home blood sugars (in the low 100s); seeing eye doctor regularly; checking feet regularly Associated Symptoms:no weight gain; no dizziness; no sweats; no headaches; no confusion; no increased thirst; no increased appetite; no increased urination; no blurred vision; no numbness of feet; no calluses on feet;weight loss (5 lbs)Medicare Annual Wellness VisitReported bypatient.Diet and Nutrition:healthy diet; discussed diet improvement Fracture Risk:no history of fractures; no recent explained fracture; no sudden unexplained fractures;previous musculoskeletal injuries Physical Activity:good physical condition; discussed exercise habits Depression Risk:never feels sad, empty, or tearful; no loss of interest in activities; no significant changes in weight; no sleep disturbances or insomnia; no agitation; no loss of energy; no feelings of worthlessness or guilt; no thoughts of suicide; no history of depression; no history of mood disorders Orientation:no disorientation to time; no disorientation to date; no disorientation to place Concentration and Memory:no decreased concentrating ability; no memory lapses or loss; does not forget words Speech/Motor difficulties:no speech difficulties; no difficulty expressing formulated concepts; no difficulty with fine manipulative tasks; no difficulty writing/copying; no slowed reaction time; does not knock things over when trying to pick them up Hearing:no loss of hearing Vision:worse both distance and near Activities of Daily Living:able to bathe with limited or no assistance; able to contol urination and bowels; able to dress with limited or no assistance; able to feed self with limited or no assistance; able to get out of chair or bed with limited or no assistance; able to groom with limited or no assistance; able to toilet with limited or no assistance Instrumental Activities of Daily Living:able to do house work with limited or no assistance; able to grocery shop with limited or no assistance; able to manage medications with limited or no assistance; able to manage money with limited or no assistance; able to prepare meals with limited or no assistance; able to use the phone with limited or no assistance Falls Risk Assessment:no frequent falls while walking; no dizziness/vertigo; fall(s) in the past year 10; fall(s) since last visit2 Home Safety:no unsafe daryl hazzards; no unsafe stairs; no unsafe gas appliances; working smoke/CO detectors; wears protective head gear for biking/high velocity; use of seatbelts; no vision or hearing loss while driving; no fire arms; has hand bars in the bathroom/shower; good lighting in the home I am fineWhat about that shot you put me on?What about my walker? She is unable to walk well, this is most likely due to the balance impairment which developed after she had resection of lymph nodes from the right groin for her cancer surgery. She also has osteoarthritis, CKD for which she is on HD and Pierre Ybarra MD Attn: Accounting,[address] [facility], [place], [address], [facility] 12/22/2023 08:25:55 02/05/2024 text/html A visitShe ga ve me a shot for my back, once every 6 months Admitted 12/31/23-01/01/24 with SVT and she is s/p ablation, she was also seen by her ink grinder and may be on Prolia. Pierre Ybarra MD Attn: Accounting,[address] [facility], [place], [address], [facility] 02/05/2024 11:16:23 07/15/2024 text/html Abdominal PainRe ported bypatient.Location:[facility] Quality:pain Severity:severe Duration:intermittent Onset/Timing:worse; wax/wane Modifying Factors:nothing gives relief; nothing makes it worse Associated Symptoms:no fever; no chills; no blood in the urine; no heartburn; no shortness of breath;nausea;vomiting; diarrheaBack PainReported bypatient.Location:pain is not radiating Quality:sharp Severity:worsening;lucien re (8-10) Duration:acute Onset/Timing:recurrent episode Context:trauma; prior back problems Alleviating Factors:relieved by changing position Aggravating Factors:movement/positi oning Associated Symptoms:no fever; no weak limbs; no numbness of the legs/feet; no tingling; no incontinence; no shortness of breathDiabetes F/UReported bypatient.Labs:last A1C result: 5.1% Context:normal range of home blood sugars (in the low 100s); seeing eye doctor regularly; checking feet regularly Associated Symptoms:no weight gain; no dizziness; no sweats; no headaches; no confusion; no increased thirst; no increased appetite; no increased urination; no blurred vision; no numbness of feet; no calluses on feet;weight loss (2 lbs) My pain in my back is worse than it has been in a long time, I fell and hit my backI have been having real bad pains in my right side She complains of RLQ abdominal pain, she had a right sided colectomy in 2021 for adenocarcinoma of the colon. She did not voice a change in her BM or rectal bleeding. She fell and hit her back on the corner of a table. Seen by the ink grinder, her Prolia will be administered soon. Pierre Ybarra MD Attn: Accounting,[address] [place], [address], [facility] 07/15/2024 13:46:14 11/04/2024 text/html Diabetes F/URepo rted bypatient.Associated Symptoms:weight gain (5 lbs) Follow upI have to get a CT ColographThat is like not working any more, I am not losing ... Ms. Rivera returns, she thinks she has allergies, she has been coughing and sneezing, there is no reported shortness of breath or chest pain. Her veneer drier tailer has ordered a CT kg and she does not think that her Trulicity is helping anymore as she has failed to lose anymore weight. In the interim, she had an abnormal CT scan of the abdomen and pelvis and a follow-up MRI which suggested hemangioma as well as considerable iron deposits in the spleen and liver with a concern for hemosiderosis. Pierre Ybarra MD Attn: Accounting,[address] [place], [address], [facility] 11/04/2024 13:56:10 OBGyn Episode No OBEpisode recorded.
--- OUTSIDE RECORDS SUMMARY | 2024-11-05 13:02 | XMS_ITS | Encounter Summary ---
Author Organization [facility] Healthcare Address [address] [place] [address] Care Team Providers Care Is Architect Name Role Phone Pierre Bergeron MD Primary Care Provider Mattie Oliver MD Unavailable [phone] Jose David Simposn MD Unavailable Russell Mock MD Unavailable [phone] Ramon Pastor MD Unavailable Lobito Melendez MD Unavailable [phone] Theresa Godinez MD, Quentin Roe Unavailable Elva Kurtz MD Unavailable Jorge Luis Alvarez MD Unavailable [phone] Encounter Details Date Type Department Care Team (Late st Contact Info) Description 03/28/2022 Telephone [facility] Physical Medicine and Rehabilitation [id number] [place] [address] Kaylan Sinha, COAL MINER Social History Tobacco Use Types Packs/Day Years Used Date Smoking Tobacco: Former Cigarettes Q uit: 1998 Smokeless Tobacco: Never Alcohol Use Standard Drinks/Week Comments Not Currently 0 (1 standard drink = 0.6 oz pur e alcohol) Social Connection and Isolat ion Panel [NHANES] Answer Date Recorded In a typical week, how many times do you talk on the phone with family, friends, or neighbors? More than three times a week 03/29/2022 How often do you get togethe r with friends or relatives? More than three times a week 03/29/2022 How often do you attend chur ch or jew services? Never 03/29/2022 Do you belong to any clubs o r organizations such as anabaptist groups, unions, fraternal or athletic groups, or school groups? No 03/29/2022 How often do you attend meet ings of the clubs or organizations you belong to? Never 03/29/2022 Are you , , di vorced, , never , or living with a partner? Never 03/29/2022 AUDIT-C Answer Date Recorded Q1: How often do you have a drink containing alc ohol? Monthly or less 03/29/2022 Q2: How many drinks containi ng alcohol do you have on a typical day when you are drinking? 1 or 2 03/29/2022 Q3: How often do you have si x or more drinks on one occasion? Never 03/29/2022 Overall Financial Resource Strain (CARDIA) Answe r Date Recorded How hard is it for you to pa y for the very basics like food, housing, medical care, and heating? Not hard at all 03/29/2022 PHQ-2 Answer Date Recorded Patient Health Questionnaire-2 Score 1 03/29/2022 [facility] - Occupational Stress Questionnaire Answer Date Recorded Do you feel stress - tense, restless, nervous, or anxious, or unable to sleep at night because your mind is troubled all the time - these days? Only a little 03/29/2022 Hunger Vital Sign Answer Date Recorded Within the past 12 months, y ou worried that your food would run out before you got the money to buy more. Never true 03/29/20 22 Within the past 12 months, t he food you bought just didn't last and you didn't have money to get more. Never true 03/29/2022 PRAPARE - Transportation Answer Date Re corded In the past 12 months, has l ack of transportation kept you from medical appointments or from getting medications? No 03/10 In the past 12 months, has l ack of transportation kept you from meetings, work, or from getting things needed for daily living? No 03/29/2022 Housing Stability Vital Sign Answer [place] e Recorded In the last 12 months, was t here a time when you were not able to pay the mortgage or rent on time? No 03/29/2022 In the last 12 months, how many places have you lived? 1 03/29/2022 In the last 12 months, was t here a time when you did not have a steady place to sleep or slept in a detention (including now)? 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 Not on file Not on file Not on file documented as of this encounter Last Filed Vital Signs Vital Sign Reading Time Taken Comments Blood Pressure - - Pulse - - Temperature - - Respiratory Rate - - Oxygen Saturation - - Inhaled Oxygen Concentration - - Weight 90.7 kg (200 lb) 03/28/2022 1:12 PM CDT Height 142.2 cm (4' 8) 03/28/2022 1:12 PM CDT Body Mass Index 44.84 03/28/2022 1:12 PM CDT documented in this encounter Functional Status * Audit-C Score Answer Date of Assessment Author 1 03/29/2022 9:41 AM CDT Vinayak Duque MSW * Question Answer Date of Assessment Author Q1: How often do you have a drink containing alcohol? Monthly or less 03/29/2022 9:41 AM Lily Dominguez MSW Q2: How many drinks containing alcohol do you have on a typical day when you are drinking? 1 or 2 03/29/2022 9:41 AM Lily Dominguez MSW Q3: How often do you have six or more drinks on one occasion? Never 03/29/2022 9:41 AM Lily Dominguez MSW * Over the past 2 weeks, how often have you been bothered by any of the following problems? Question Answer Date of Assessment Author Patient Health Questionnaire -2 Score 1 03/29/2022 9:41 AM Lily Dominguez , TUBER MACHINE OPERATOR HELPER * If you checked off any problems on this questionnaire so far, Question Answer Date of Assessment Author How difficult have these problems made it for you to do your work, take care of things at home, or get along with other people? Somewhat difficult 03/29/2022 9:41 AM Lily Dominguez , TUBER MACHINE OPERATOR HELPER * Over the past 2 weeks, how often have you been bothered by any of the following problems? Question Answer Date of Assessment Author Little interest or pleasure in doing things Not at all 03/29/2022 9:41 AM Poonam Dominguez, TUBER MACHINE OPERATOR HELPER Feeling down, depressed, or hopeless Several days 03/29/2022 9:41 AM Lily Dominguez , TUBER MACHINE OPERATOR HELPER Trouble falling or staying asleep, or sleeping too much More than half the days 03/29/2022 9:41 AM Lily Dominguez, TUBER MACHINE OPERATOR HELPER Feeling tired or having little energy More than half the days 03/29/2022 9:41 AM Lily Dominguez, TUBER MACHINE OPERATOR HELPER Poor appetite or overeating Several days 03/29/2022 9:41 AM Lily Dominguez , TUBER MACHINE OPERATOR HELPER Feeling bad about yourself - or that you are a failure or have let yourself or your family down Not at all 03/29/2022 9:41 AM Lily Dominguez , TUBER MACHINE OPERATOR HELPER Trouble concentrating on things, such as reading the newspaper or watching television Not at all 03/29/2022 9:41 AM Lily Dominguez , TUBER MACHINE OPERATOR HELPER Moving or speaking so slowly that other people could have noticed? Or the opposite - being so fidgety or restless that you have been moving around a lot more than usual. Not at all 03/29/2022 9:41 AM Lily Dominguez , TUBER MACHINE OPERATOR HELPER Thoughts that you would be better off or hurting yourself in some way Not at all 03/29/2022 9:41 AM Lily Dominguez , TUBER MACHINE OPERATOR HELPER Patient Health Questionnaire-9 Score 6 03/29/2022 9:41 AM Lily Dominguez, REGINALD documented as of this encounter Miscellaneous Notes * Pre-Admission Screening - Kaylan Sinha SLP - 03/28/2022 1:40 PM CDT [facility] Physical Medicine and Rehabilitation Preadmission Screening Reason for Consult: Daniel Rivera is a 67 y.o. female with a medical diagnosis of Vulvar cancer and Rehab Diagnosis: Vulvar Carcinoma - deconditioning whose probable impairment code for inpatient rehabilitation is: Impairment Code Group: Debility The following information was gathered for consideration and maintenance in the medical record to substantiate medical necessity for IRF level of care. Patient is currently at [facility] . The patient is being referred and recommended by Dr. Kurtz to be assessed both medically and functionally in regard to their premorbid functional capacity to determine whether they can benefit froma rehabilitation level of care offered by our facility. The following information is regarding the medical complexity and clinical risk factors that need to be considered for the appropriate management of the patient's care and recovery. RECOMMENDATIONS / PLAN: Goals for admission:to resolve all medical issues to optimal level and to improve patients functional independence Very Good Likelihood of reaching these goals:Very Good Medical Prognosis: Medical prognosis appears good due to ongoing medical issues and existing comorbidities Functional Prognosis: Functional prognosis appears good for patient to recover to a Mod Independentlevel overall for self cares, mobility and transfers with least restrictive device Therapies required to achieve goals:The patient will benefit from integrated coordination of care from the following interdisciplinary services: Medical Supervision, 24 hours Rehabilitation Nursing, Physical Therapy, Occupational Therapy, Case Management, Social Work Expected level of improvement is: very good Expected level of improvement at discharge is: modified independent Strengths for achieving goals: Strengths: Able to tolerate intensive inpatient rehab program, Motivated Barriers to achieving goals: Barriers: Comorbidities (pain and ongoing medical issues) Expected length of stay: Estimated Length of Stay: 14 days When medically stable, anticipated disposition: Anticipated destination post discharge from inpatient rehab: community discharge with assist Information regarding the rehab process including risks/benefits and financial issues were discussed with the patient and/or family and they have agreed to accept rehabilitation risks and benefits. Payor Source: Primary: Medicare A&B Secondary:Policy number: [id number] Case discussed with Dr. Schwartz on 03/28/22 @ 1100. Appropriateness for admission to the Inpatient Rehab Facility: yes The Pre-admission screen is an assessment of the patient's medical and functional status and has been reviewed by a rehab physician. It has been determined by the rehab physician that this patient will benefit from a comprehensive inpatient rehab admission to meet the identified goals and manage ongoing medical issues. The physician will provide documentation that supports an inpatient rehab admission including real and potential complications for which the patient is at risk with a plan to manage and avoid those risks HISTORY: Past Medical History: Past Medical History: Diagnosis Date Acute respiratory failure requiring reintubation ([facility]) ([facility]) with Arthritis Atrial fibrillation ([facility] ([facility]) CHF (congestive heart failure) ([facility]) ([facility]) CKD (chronic kidney disease) Coronary artery disease COVID-19 06/2021 Diabetes mellitus ([facility]) Dialysis patient ([facility]) ([facility]) ESRD (end stage renal disease) ([facility]) ([facility]) 04/11/2016 GERD (gastroesophageal reflux disease) History of cardiac radiofrequency ablation x2 Hyperlipidemia Hypertension Infection of AV graft for dialysis ([facility] ([facility]) 06/07/2019 Malignant neoplasm of ascending colon ([facility]) ([facility]) 2021 Morbidly obese ([facility]) ([facility]) 06/20/2021 Sleep apnea SVT (supraventricular tachycardia) ([facility]) ([facility]) Type 2 diabetes mellitus ([facility]) Vulvar cancer ([facility]) ([facility]) 2021 Past Surgical History: Past Surgical History: Procedure Laterality Date ABLATION 2004 SVT ablation and Bio loop recorder implantation 05/09/2016 CARDIAC CATHETERIZATION CARPAL TUNNEL RELEASE Bilateral CATARACT EXTRACTION Bilateral SECTION CHOLECYSTECTOMY COLON SURGERY COLONOSCOPY 01/22/2022 Previous colonoscopy 01/01. Polyp biopsy result f/u FIRST RIB REMOVAL Right HYSTERECTOMY W/ BILATERAL SALPINGOOPHORECTOMY Bilateral 1998 supracervical; reported endometriosis OTHER SURGICAL HISTORY endoprosthetic stent bilateral chest/shoulder TONSILLECTOMY Social History: Social History Tobacco Use Smoking status: Former Types: Cigarettes Quit date: 1997 Years since quittin.8 Smokeless tobacco: Never Substance and Sexual Activity Drug use: Never Sexual activity: Defer Alcohol Use: Not At Risk Frequency of Alcohol Consumption: Monthly or less Average Number of Drinks: 1 or 2 Frequency of Binge Drinking: Never Patient's Preferred Language: Nepali Cultural Requests During Hospitalization: none conveyed Acute Conditions/Co-morbidities requiring Acute Rehab: Acute renal failure, Hemodialysis, Uncontrolled pain, Other (comment), Pneumonia and/or other respiratory issues ([facility] Venous thoracic outlet syndrome of right subclavian vein Ventricular tachycardia AFib Vulvar cancer EDWINA III (vulvar intraepithelial neoplasia III) S/P right colectomy; gout, neuropathy, HD MWF CKD 5; pain) HPI: 03/26/22: 67 y.o. POD#0 s/p radical hemivulvectomy, right inguinal lymph node dissection, clitorectomy. Interval History: -tolerating clears and hungry. No N/V -reporting vulvar pain at this time -not yet passing flatus -denies lightheadedness/dizziness -denies SOB, CP, fever, chills, and night sweats PE: General: Awake, alert and oriented. No acute distress. Well developed, hydrated and nourished. Appears stated age. Skin: Skin is warm, dry and intact without rashes or lesions. Cardiac: The external chest is normal in appearance without lifts, heaves, or thrills. Heart rate and rhythm are normal. No murmurs, gallops, or rubs are auscultated. Respiratory: No signs of respiratory distress. Lung sounds are clear in all lobes bilaterally without rales, ronchi, or wheezes. Abdominal: Soft, ND, NTTP. Groin drain in place with SS output. Extremities: Upper and lower extremities are atraumatic in appearance without tenderness or deformity. Hands and feet with nonpitting edema. A/P: 1. ID: Afebrile. No signs/symptoms infection. 2. Heme: EBL 200 cc. No signs/symptoms acute blood loss anemia. 3. CV/Pulm: VSS. Asymptomatic. Wean to RA, encourage IS. #Afib: continue home metoprolol #HTN: continue home metoprolol and midodrine (pre-HD), hold home lisinopril #HLD: continue home statin #COPD: continue home trelegy and albuterol 4. GI/: No n/v, ADAT. #GERD: hold home PPI #ESRD: hemodialysis M/W/F. For HD tomorrow, nephro consulted. #colon cancer: s/p R colectomy w/ IC RA on 02/21/22 Continue home cinacalcet and sevelamer. For midrodine prior to HD. 5. Pain: ibu, APAP, and oxycodone. Dilaudid prn. 6. PPx: SCDs, lovenox 7. #Depression: continue home cymbalta 8. #Neuropathy: continue home gabapentin 9. #Gout: continue home allopurinol Christina Stein MD 03/26/22: NEPHROLOGY INITIAL CONSULTATION HPI: Patient is 67 y.o., female with past medical history of afib, colon cancer, HTN, and ESRD (MWF dialysis), presenting for radical vulvectomy and lymph node dissection for vulvar cancer. Patient was recently admitted 02/21 for right colectomy and discharged to rehab where she developed vaginal bleeding with concern for vulvar cancer. Patients last BMP on 03/11 showed Cr of 8.89, BUN of 41, Na 131, K 5.7. Labs today showed K of 4.1. Renal was consulted for management of ESRD and dialysis management during this admission. Patient states that she has a history of intra dialytic hypotension for which she is on midodrine IMPRESSION AND RECOMMENDATION: 1. End-stage renal disease: On HD [facility] Dialysis center is [facility] Plan for HD today with 2L UF and continue as per [facility] schedule - Dry weight 98.5 kg - Will adjust UF as needed during HD - Will monitor access pressures - Please start patient on a water soluble vitamin such as Nephrovit 2. Hypertension: Has a history of intra dialytic hypotension - c/w midodrine 10 mg during HD days - Will adjust UF based on Blood pressure 3. Anemia in ESRD: Hb 9.8 Santa get iron studies and ferritin Transfuse as needed to keep Hb >7 4. Secondary hyperparathyroidism: Ca and phos at goal - c/w cinacalcet 30 mg every day - c/w renvela 2400 mg TID with meals 5. Vascular access issues: Please protect vascular access extremity from any venipunctures or bloodpressure monitoring. Please place sign above bed to protect the extremity. Do not place PICC lines in either extremity. 6. Medication dosing: Please dose all medications for eGFR of less than 10 ml/min. Medications cleared by dialysis should be dosed after dialysis. This applies to commonly used antibiotics - e.g. vancomycin, aminoglycosides, merpoenem, cefepime, cefazolin, daptomycin etc. Please check dosing of all medication with pharmacy to ensure safe and efficacious dose in patients undergoing dialysis. 7. Antibiotic administration after discharge: If IV antibiotics administration is required after discharge, this needs to be coordinated through Home Health and the patient's outpatient hemodialysis center. A Jyoti catheter may be required for antibiotics that need to be administered daily at home. DATE OF SURGERY : 03/26/2022 Preoperative Diagnosis: Pre-op Diagnosis * Vulvar cancer (CMS/HCC) (HCC) [C51.9] * EDWINA III (vulvar intraepithelial neoplasia III) [D07.1] Postoperative Diagnosis: Post-op Diagnosis * Vulvar cancer (CMS/HCC) (HCC) [C51.9] * EDWINA III (vulvar intraepithelial neoplasia III) [D07.1] Name of Operation: Procedure(s): RADICAL HEMIVULVECTOMY/Right inguinal lymph node dissection, Clitorectomy Indication for Procedure: This is a 67 y.o. 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 Operative Findings: On exam under anesthesia, large 3cm exophytic mass on the right labia 5-6cm away from the midline. Multiple areas of hypopigmented areas periclitoral (bilaterally) likely consistent with EDWINA III. No palpable groin nodes. Right groin dissection, radical vulvectomy, and clitoridectomy performed. Groin drain placed. 03/28/22:BRIEF OVERVIEW Hospital Problems/Diagnoses: Principal Problem: Vulvar carcinoma (CMS/HCC) (HCC) Active Problems: Vulvar cancer (CMS/HCC) (HCC) EDWINA III (vulvar intraepithelial neoplasia III) Resolved Problems: No resolved hospital problems. DETAILS OF HOSPITAL STAY Presenting Problem/History of Present Illness: This is a 67 y.o. 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 Hospital Course: 67 y.o. s/p radical vulvectomy/right inguinal lymph node dissection, clitorectomy for exophytic mass on the right labia w/ biopsy showing EDWINA III. #Postoperative care Radical vulvectomy/right inguinal lymph node dissection, clitorectomy performed without complication. Patient had an estimated blood loss of 200 mL. Preoperative hemoglobin was 10.4 and subsequently determined to be 9.8 post- operatively. No signs or symptoms of acute blood loss anemia. The patient r eceived IV Ancef prior to skin incision. She was afebrile and had no other signs or symptoms of infection throughout her hospital course. Pain was well controlled with PO Tylenol, ibuprofen, and PRN oxycodone. Patient was weaned to 2L NC on POD#0 and was breathing room air by POD#1. She was encouraged to use incentive spirometer. Vitals remained stable. Patient advanced to a regular diet on POD#1which was tolerated without issue. Also started on bowel regimen of Colace and Miralax. Patient is anuric and thus did not require ugalde placement. Patient's right inguinal LENNY drain was removed priorto discharge. Incisions remained clean, dry, and intact. Patient received SCDs and subcutaneous heparin for DVT prophylaxis. #ESRD, hemodialysis M/W/F Patient with known ESRD, currently on hemodialysis M/W/F. Nephrology was consulted and patient received 03/27 dialysis while inpatient. She was continued on home cinacalcet, sevelamer, and midodrine.Her weight was monitored daily. #Colon cancer Patient with new diagnosis of colon cancer s/p R colectomy w/ IC RA on 02/21/22. She receives her care at [facility]. #Atrial fibrillation Known history of atrial fibrillation not on anticoagulation. Last TTE 02/2022 with unspecified diastolic dysfunction, LVEF > 70%. Patient continued home metoprolol and was rate controlled throughout her stay. #HTN Known history of hypertension. Continued home metoprolol and midodrine (typically takes before dialsysis MWF). Home lisinopril (typically takes it T/Th/Sat/Sun) held during admission. #Asthma #COPD #Pulm HTN (RVSP 36) #Sleep Apnea Continued home trelegy and PRN albuterol with CPAP at night. Patient was initially placed on 2L NC after surgery but was weaned to room air by POD#1. #Depression Continued home cymbalta and lexapro. #Gout Continued home allopurinol. #Neuropathy Continued home gabapentin. #HLD Continued home atorvastatin. #GERD Continued home famotidine. #Diabetes Mellitus (type 2) c/b neuropathy Patient not currently on diabetic medications. Last HgA1c was 4.6 on 02/13/22. Blood sugar was monitored with daily BMP. #Physical deconditioning PT/OT followed the patient for her physical deconditioning. She was followed throughout her admission and given recommendations for inpt rehab. SW made arrangements for her to d/c to [facility] for continued therapy. 03/01/22-03/15/22 PRIOR ADMISSION TO REHAB Patient is a pleasant 66 year old lady who was found to have anemia, underwent adequate workup, upper endoscopy and colonoscopy were done. Patient was noted to have a 5 mm polyp in the right colon, pathology report was concerning about possibility of malignancy. At that time the GI called me and discussed with me, I advised him to reconsider repeat colonoscopy to brandan that area of polypectomy site possible. Patient underwent repeat colonoscopy a week ago, that area was biopsied again, it shows invasive malignancy, patient is sent here for further management. Patient stated that she also had capsule endoscopy, no evident source of bleeding identified yet. Patient previously had hysterectomy for endometriosis many years ago On 02/21 patient underwent XI RIGHT COLECTOMY - LAPAROSCOPIC ROBOTIC ASSISTED AND LYSIS OF ADHESIONS (R), LAPAROSCOPIC LYSIS ADHESIONS secondary to colon cancer 02/22 XR Chest IMPRESSION: Cardiomegaly with pulmonary vascular congestion 02/26 XR Chest FINDINGS/IMPRESSION: Right IJ central venous catheter terminates in the superior cavoatrial junction. Vascular stents are unchanged in appearance. There is decreasing cardiomegaly withcardiomegaly appearing moderate. Decreasing perihilar and bibasilar opacities suggesting improving p ulmonary edema with residual small perihilar opacities and right lower lobe opacity noted. No acuteosseous abnormality. 02/27 CT Chest Abdomen Pelvis IMPRESSION: Moderate right posterior basal consolidation and volume loss with trace right effusion. Cardiomegaly, interlobar septal thickening and patchy lower lobe predominant groundglass opacities suggesting interstitial edema and/or small airway disease. Small 2 mm middle lobe subpleural nodule. Suggest attention on follow-up. Postoperative change of right colectomy with mild retained colonic debris and diverticulosis. Gastric distention and mild distended partial fluid-filled small bowel which may represent ileus but follow-up to exclude obstruction. Atrophickidneys with nonobstructing nephrolithiasis. Small retroperitoneal and mesenteric nodes again seen probably reactive. Disc degeneration with severe central stenosis at L4-L5 and moderate to severe atL3-L4. 02/28 TTE Conclusions: Technically difficult study with poor image quality. Normal left ventricularsize. Moderate left ventricular hypertrophy. Normal global left ventricular systolic function. Diastolic dysfunction is present. Increased left heart filling pressures based on elevated E/E`. Ejection fraction about 70 %. Mitral valve is not well visualized. Aortic valve not well visualized. Mild aortic stenosis by Doppler. Peak velocity AOV of 1.7 m/sec. Mean gradient of 6.0 mmHg. Valve area of 1.6 cm2. Tricuspid valve not well visualized. Estimated peak RVSP is 36 mmHg. Per Internal Medicine Progress Note on 02/28, ongoing medical concerns with plan include: Acute hypoxemic respiratory failure likely secondary to volume overload status in a patient with ESRD; possible CHF exacerbation; patient is morbidly obese BMI of 53- appears to have resolved ; now on RA - check echo ; CT CAP as above ; cont O2; DuoNeb treatments inhalers -CXR with pulmonary edema, fluid management via dialysis patient had a dialysis treatment 02/26 and repeat HD 02/27; further fluid management defer to nephrology Right colon cancer s/p robotic assisted right colectomy with ileocolic anastomosis, ICA -post op management via general surgery, continue pain control with hydromorphone and anti emetics,or diet has now advanced to diet 2 g sodium - Pathology results reviewed - CT CAP as above - pain control with hydromorphone q.3 hours p.r.n. - antiemetics p.r.n.; activity as tolerated - continue Metamucil and MiraLax Past Medical History: o Arthritis o Atrial fibrillation (CMS/HCC) (HCC) o CHF (congestive heart failure) (CMS/HCC) (HCC) o CKD (chronic kidney disease) o Coronary artery disease o COVID-19 06/2021 o Diabetes mellitus (HCC) o Dialysis patient (CMS/HCC) (HCC) o ESRD (end stage renal disease) (CMS/HCC) (HCC) 04/11/2016 o GERD (gastroesophageal reflux disease) o History of cardiac radiofrequency ablation x2 o Hyperlipidemia o Hypertension o Infection of AV graft for dialysis (CMS/HCC) (HCC) 06/07/2019 o Malignant neoplasm of ascending colon (CMS/HCC) (HCC) 2021 o Morbidly obese (CMS/HCC) (HCC) 06/20/2021 o Sleep apnea o SVT (supraventricular tachycardia) (CMS/HCC) (HCC) o Type 2 diabetes mellitus (HCC) o Vulvar cancer (CMS/HCC) (HCC) 2021 Past Surgical History: o ABLATION 2004 SVT ablation and Bio loop recorder implantation 05/09/2016 o CARDIAC CATHETERIZATION o CARPAL TUNNEL RELEASE Bilateral o CATARACT EXTRACTION Bilateral o SECTION o CHOLECYSTECTOMY o COLONOSCOPY 01/22/2022 Previous colonoscopy 01/01. Polyp biopsy result f/u o FIRST RIB REMOVAL Right o HYSTERECTOMY W/ BILATERAL SALPINGOOPHORECTOMY Bilateral 1998 supracervical; reported endometriosis o OTHER SURGICAL HISTORY endoprosthetic stent bilateral chest/shoulder Patient had been previously admitted to rehab and discharged on 03/15/22 at a Mod Independent level overall for self cares, mobility and transfers; prior to that admission, she was independent with self-cares, transfers, and mobility. Currently, patient requires Mod A for grooming, LE dressing, toileting, and bed mobility; Min A forambulation 10ft; SBA for transfers Due to complicated medical course, ongoing medical needs, and significant decline in functional independence, patient is now referred to acute inpatient rehabilitation program. Date of Onset: Date of Onset: 03/21/22 Date Admitted to Acute: Date admitted to acute: 03/21/22 Precautions/Restrictions: Falls [place] Suicide Severity Rating Scale: Allergies: Allergies Allergen Reactions Ciprofloxacin Rash and Hives Reaction: RASH, Reaction: Hives, Penicillins Other (See comments) Nose bleed Code Status: Full Code Vitals: There were no vitals filed for this visit. Current Systems Summary: Height: 142.2 cm (4' 8) Weight: 90.7 kg (200 lb) Diet: adult renal regular consistency Bladder: (unknown - assess upon admission) Bowel: (unknown - assess upon admission) Date of last BM: (unknown - will assess upon admission) Integumentary: Surgical Site 03/26/22 Vagina 1 day; sonny 19 Cardiopulmonary: Room air Dialysis: Hemodialysis (Hemodialysis AV Access 02/21/22 AV fistula Upper arm 34 days) Pain: Patient has pain that is controlled on current regimen IVs: Peripheral IV (Hemodialysis AV Access 02/21/22 AV fistula Upper arm 34 days Peripheral IV 03/26/22 20 G Left;Posterior Forearm 2 days CVC Triple Lumen 03/26/22 Right Internal jugular 1 day Closed/Suction/Open Drain 1 Right Other (Comment) Bulb 7 Fr. 1 day) Current meds: Current Facility-Administered Medications on File Prior to Visit Medication Dose Route Frequency Provider Last Rate Last Admin acetaminophen (TYLENOL) tablet 1,000 mg 1,000 mg oral Q6H Nakita Mcgraw MD 1,000 mg at 03/28/22 0853 albuterol HFA (PROVENTIL HFA,VENTOLIN HFA,PROAIR HFA) 90 mcg/actuation inhaler 2 puff 2 puff inhalation Q8H PRN (RT) Nakita Huang MD allopurinoL (ZYLOPRIM) tablet 100 mg 100 mg oral Nakita Carvajal MD 100 mg at 03/28/22 0853 atorvastatin (LIPITOR) tablet 80 mg 80 mg oral Nakita Carvajal MD 80 mg at 03/28/22 0853 cinacalcet (SENSIPAR) tablet 30 mg 30 mg oral Nakita Carvajal MD 30 mg at 03/28/22 0852 docusate sodium (COLACE) capsule 100 mg 100 mg oral BID Nakita Huang MD 100 mg at 03/28/[address] (CYMBALTA) extended release capsule 30 mg 30 mg oral Nakita Carvajal MD 30 mg at 03/28/22 0853 escitalopram (LEXAPRO) tablet 10 mg 10 mg oral Nakita aCrvajal MD 10 mg at 03/28/22 0853 [START ON 03/29/2022] cucobbdkdng-mwubwhfpb-qoqopryn (TRELEGY ELLIPTA) 100-62.5-25 mcg inhaler 1 puff 1 puff inhalation Daily Luc Mckeon MD gabapentin (NEURONTIN) capsule 100 mg 100 mg oral TID Nakita Huang MD 100 mg at 853 heparin 5,000 unit/mL injection 5,000 Units 5,000 Units subcutaneous Q8H [facility] Nakita Huang MD 5,000 Units at 03/28/22 0638 ibuprofen (ADVIL,MOTRIN) tablet 600 mg 600 mg oral Q6H PRN Nakita Huang MD 600 mg at 03/28/22 1028 metoprolol tartrate (LOPRESSOR) immediate release tablet 12.5 mg 12.5 mg oral BID Nakita Huang MD midodrine (PROAMATINE) tablet 10 mg 10 mg oral Once per day on Fri Nakita Huang MD 10 mg at 03/27/22 1257 ondansetron ODT (ZOFRAN-ODT) disintegrating tablet 4 mg 4 mg oral Q6H PRN Nakita Huang MD Or ondansetron (ZOFRAN) injection 4 mg 4 mg intravenous Q6H PRN Nakita Huang MD oxyCODONE (ROXICODONE) tablet 5 mg 5 mg oral Q4H PRN Nakita Huang MD 5 mg at 03/28/22 1028 polyethylene glycol (MIRALAX) packet 17 g 17 g oral Daily Nakita Huang MD 17 g at 03/28/22 0851 sevelamer (RENVELA) tablet 2,400 mg 2,400 mg oral TID with meals Nakita Huang MD 2,400 mg at 03/28/22 1156 [] sodium chloride 0.9% bolus 200 mL 200 mL intravenous PRN Homer Preston MD sodium chloride 0.9% flush 10 mL 10 mL intra-catheter Q12H [facility] Nakita Huang MD 10 mL at 03/28/22 0853 sodium chloride 0.9% flush 10-20 mL 10-20 mL intra-catheter PRN Nakita Huang MD [DISCONTINUED] uvdfbxbhenx-iipdrjbjd-tpubfhzu (TRELEGY ELLIPTA) 100-62.5-25 mcg inhaler 1 puff 1 puff inhalation Daily (RT) Nakita Huang MD 1 puff at 03/28/22 0950 Current Outpatient Medications on File Prior to Visit Medication Sig Dispense Refill acetaminophen (TYLENOL) 500 mg tablet Take 500 mg by mouth every 6 (six) hours as needed for pain albuterol HFA (PROVENTIL HFA,VENTOLIN HFA,PROAIR HFA) 90 mcg/actuation inhaler Inhale 2 puffs every8 (eight) hours as needed for shortness of breath alcohol swabs (Alcohol Wipes) pads, medicated Use as directed. 100 each 0 allopurinoL (ZYLOPRIM) 100 mg tablet Take 100 mg by mouth every morning atorvastatin (LIPITOR) 80 mg tablet Take 80 mg by mouth every morning calcium carbonate (TUMS) 1,250 mg (500 mg elemental) chewable tablet Take 1 tablet by mouth daily as needed for indigestion or heartburn cinacalcet (SENSIPAR) 30 mg tablet Take 30 mg by mouth every morning docusate sodium (COLACE) 100 mg capsule Take 1 capsule (100 mg total) by mouth 2 (two) times a day [address] (CYMBALTA) 30 mg capsule Take 30 mg by mouth every morning escitalopram (LEXAPRO) 10 mg tablet Take 10 mg by mouth every morning folic acid/vit B complex and C (ALEXYS-SHENG ORAL) Take 1 tablet by mouth every morning gabapentin (NEURONTIN) 100 mg capsule Take 1 capsule (100 mg total) by mouth 3 (three) times a day 90 capsule 0 ibuprofen (ADVIL,MOTRIN) 600 mg tablet Take 1 tablet (600 mg total) by mouth every 6 (six) hours asneeded for pain lancets misc Use as directed up to 4 times a day. 100 each 1 lisinopriL (PRINIVIL,ZESTRIL) 40 mg tablet Take 40 mg by mouth every morning meloxicam (MOBIC) 7.5 mg tablet Take 7.5 mg by mouth daily metoprolol tartrate (LOPRESSOR) 25 mg immediate release tablet Take 0.5 tablets (12.5 mg total) by mouth 2 (two) times a day (Patient taking differently: Take 12.5 mg by mouth 2 (two) times a day) 90tablet 0 midodrine (PROAMATINE) 10 mg tablet Take 10 mg by mouth 3 (three) times a week M\W/F before HD ondansetron ODT (ZOFRAN-ODT) 4 mg disintegrating tablet Take 1 tablet (4 mg total) by mouth every 6(six) hours as needed for nausea or vomiting 20 tablet 0 oxyCODONE (ROXICODONE) 5 mg immediate release tablet Take 1 tablet (5 mg total) by mouth every 4 (four) hours as needed for pain [address] (PROTONIX) 40 mg EC tablet Take 40 mg by mouth every morning [START ON 03/29/2022] polyethylene glycol (MIRALAX) 17 gram packet Take 1 packet (17 g total) by mouth daily psyllium, aspartame, SF (METAMUCIL SF) 3.4 gram packet Take 1 packet by mouth 2 (two) times a day (Patient taking differently: Take 1 packet by mouth 2 (two) times a day) 60 packet 11 ropivacaine (NAROPIN) 5 mg/mL (0.5 %) injection 20 mg by other route 3 (three) times a week For fistula sevelamer (RENVELA) 800 mg tablet Take 2,400 mg by mouth 3 (three) times a day with meals 3 for meal 2 with snack traMADoL (ULTRAM) 50 mg tablet Take 1 tablet (50 mg total) by mouth 3 (three) times a day as neededfor pain for up to 7 days (Patient taking differently: Take 50 mg by mouth 3 (three) times a day asneeded for pain) 21 tablet 0 Trelegy Ellipta 100-62.5-25 mcg inhaler Inhale 1 puff daily Substance abuse history: Daniel Rivera reports that she quit smoking about 24 years ago. Her smoking use included cigarettes.She has never used smokeless tobacco. She reports that she does not use drugs. Patient reports consuming alcoholic drinks monthly or less, with a daily consumption of drinks. Patient denies daily consumption of 6 or more alcoholic drinks at one occasion. Diagnostic Tests: Recent Results (from the past 72 hour(s)) POC Blood Gas and Chemistries, Venous - Collection Time: 03/26/22 12:35 PM Result Value Ref Range pH, Ilda POC 7.45 (H) 7.32 - 7.43 pCO2, ilda POC 55 (H) 40 - 50 mmHg pO2, ilda POC 26 mmHg Na, POC 136 135 - 145 mmol/L K POC 4.1 3.3 - 4.9 mmol/L Cl, POC 95 (L) 97 - 110 mmol/L Ionized Ca, POC 4.86 4.50 - 5.10 mg/dL Glucose, POC 100 70 - 199 mg/dL Lactate, POC 1.3 0.7 - 2.2 mmol/L O2 Sat, Ilda POC (Deborah) 50 % Base excess, POC 11.9 mmol/L HCO3, Ilda POC 38 (H) 20 - 30 mmol/L Hct, POC 50.0 (H) 36.3 - 45.3 % Total Hb, POC 16.5 (H) 11.9 - 15.5 g/dL O2 Sat, Ilda POC (Calc) 52 % Type and screen Collection Time: 03/26/22 12:36 PM Result Value Ref Range Teddy, indirect Negative POCT glucose Collection Time: 03/26/22 5:30 PM Result Value Ref Range Glucose, POC 125 70 - 199 mg/dL Basic metabolic panel Collection Time: 03/26/22 10:11 PM Result Value Ref Range Sodium 140 135 - 145 mmol/L Potassium, pl 4.8 3.3 - 4.9 mmol/L Chloride 96 (L) 97 - 110 mmol/L CO2 33 (H) 22 - 32 mmol/L Anion gap 11 2 - 15 mmol/L BUN 29 (H) 8 - 25 mg/dL Creatinine 7.13 (H) 0.60 - 1.10 mg/dL Glucose 185 70 - 199 mg/dL Calcium 9.6 8.5 - 10.3 mg/dL CBC with auto differential Collection Time: 03/26/22 10:11 PM Result Value Ref Range WBC 15.3 (H) 3.8 - 9.9 K/cumm Hgb 9.8 (L) 11.9 - 15.5 g/dL Hct 30.9 (L) 35.6 - 45.5 % Plt 191 150 - 400 K/cumm MPV 10.9 9.1 - 12.3 fL RBC 3.10 (L) 3.90 - 5.20 M/cumm MCV 99.7 (H) 81.3 - 96.4 fL MCH 31.6 27.1 - 33.3 pg MCHC 31.7 (L) 32.3 - 35.7 g/dL RDW CV 15.9 (H) 11.1 - 14.9 % RDW SD 56.3 (H) 35.7 - 48.1 fL NRBC abs 0.00 0.00 - 0.01 K/cumm Magnesium Collection Time: 03/26/22 10:11 PM Result Value Ref Range Magnesium 1.9 1.4 - 2.5 mg/dL Phosphorus Collection Time: 03/26/22 10:11 PM Result Value Ref Range Phosphorus, pl 3.5 2.3 - 4.5 mg/dL Differential, auto Collection Time: 03/26/22 10:11 PM Result Value Ref Range Neutrophil abs 13.7 (H) 1.7 - 6.5 K/cumm Imm gran abs 0.1 0.0 - 0.1 K/cumm Lymphocyte abs 0.8 0.8 - 3.3 K/cumm Monocyte abs 0.7 0.2 - 0.8 K/cumm Eosinophil abs 0.0 0.0 - 0.5 K/cumm Basophil abs 0.0 0.0 - 0.1 K/cumm Neutrophil pct 89.4 % Imm gran pct 0.5 % Lymphocyte pct 5.5 % Monocyte pct 4.4 % Eosinophil pct 0.1 % Basophil pct 0.1 % eGFR Collection Time: 03/26/22 10:11 PM Result Value Ref Range eGFR 6 (L) 90 - 130 mL/min/1.73 m2 Lipid panel Collection Time: 03/26/22 10:11 PM Result Value Ref Range Cholesterol 94 30 - 199 mg/dL Triglycerides 131 <=149 mg/dL HDL 41 >=40 mg/dL LDL, calculated 27 <=129 mg/dL Non-HDL Cholesterol 53 mg/dL Chol/HDL ratio 2 CBC without differential Collection Time: 03/27/22 10:22 PM Result Value Ref Range WBC 10.5 (H) 3.8 - 9.9 K/cumm Hgb 9.0 (L) 11.9 - 15.5 g/dL Hct 28.4 (L) 35.6 - 45.5 % Plt 195 150 - 400 K/cumm MPV 10.7 9.1 - 12.3 fL RBC 2.86 (L) 3.90 - 5.20 M/cumm MCV 99.3 (H) 81.3 - 96.4 fL MCH 31.5 27.1 - 33.3 pg MCHC 31.7 (L) 32.3 - 35.7 g/dL RDW CV 16.1 (H) 11.1 - 14.9 % RDW SD 56.7 (H) 35.7 - 48.1 fL NRBC abs 0.00 0.00 - 0.01 K/cumm Basic metabolic panel Collection Time: 03/27/22 10:22 PM Result Value Ref Range Sodium 140 135 - 145 mmol/L Potassium, pl 4.2 3.3 - 4.9 mmol/L Chloride 94 (L) 97 - 110 mmol/L CO2 34 (H) 22 - 32 mmol/L Anion gap 12 2 - 15 mmol/L BUN 14 8 - 25 mg/dL Creatinine 4.10 (H) 0.60 - 1.10 mg/dL Glucose 108 70 - 199 mg/dL Calcium 8.9 8.5 - 10.3 mg/dL Magnesium Collection Time: 03/27/22 10:22 PM Result Value Ref Range Magnesium 1.6 1.4 - 2.5 mg/dL Phosphorus Collection Time: 03/27/22 10:22 PM Result Value Ref Range Phosphorus, pl 2.2 (L) 2.3 - 4.5 mg/dL eGFR Collection Time: 03/27/22 10:22 PM Result Value Ref Range eGFR 11 (L) 90 - 130 mL/min/1.73 m2 Prior Functional Status: Mobility status/Ambulation aid/assistive devices: Transfers: Independent Walking: Independent Stair negotiation: Independent Falls: Has the patient had 2 or more falls in the past year or any fall with injury in the past year?: Yes Activities of daily living (ADL) status/ Assistive devices used for ADLs: Dressing: Independent Bathing: Independent Toileting: Independent Bladder: Continent Bowel: Continent Domestic Chores: Independent Driving: No Functional limitations: Hearing: Normal Sensory Vision: Normal Cognition: Intact Communication: Normal Nutrition: Normal Occupation: unemployed Pre-Hospital Vocational Status: Not working Home Setting: One story home Prehospital Lives With: Alone Exterior Home Access: Steps; Bilateral rails Interior Home Access: Ramp Current functional status: ADL: OT Functional Mobility: 03/28/22: Mod A bed mobility (03/28/2022 1:32 PM) OT Self Care: grooming, toileting, LE dressing - Mod A (03/28/2022 1:32 PM) OT Cognition: wfl (03/28/2022 1:32 PM) OT Communication: wfl (03/28/2022 1:32 PM) Mobility/Transfers: PT Functional Mobility: 03/28/22: Min A ambulation 10ft (03/28/2022 1:32 PM) Cognition/Communication/Swallowing: [employer] Cognition: wfl (03/28/2022 1:32 PM) [employer] Communication: wfl (03/28/2022 1:32 PM) [employer] Swallowing: N/A (03/01/2022 12:24 PM) Conditions requiring acute rehab and risk for complications: Gait dysfunction - risk for falls and further injury, fracture Decreased mobility - Risk for Fall, skin breakdown, further injury, decompensation, muscle flaccidity Balance Issues- Risk for Fall, further injury Bowel and Bladder Regime- Risk for constipation, bowel obstruction, bladder retention, Infection Treatments needed to address conditions requiring acute rehab: Daily Face to Face oversight by a provider, Intense PT/OT/SP, Access to Acting Instructor physicians, Dialysis (PD or HD), Bowel Program Alternative Level of Care considered and not appropriate due to: Daily MD oversight, Medication adjustment/oversight Patient/Caregiver Goals: Patient and Family Goals: to return home at highest level of independence to be able to care for self Cosigned by Margarita Schwartz MD at 03/28/2022 2:01 PM CDT Associated attestation - Margarita Schwartz MD - 03/28/2022 2:01 PM CDT Rehab Referral Decision: Approved I have reviewed this patient Pre-admission Screening Information.The patient is medically stable toparticipate in an inpatient rehabilitation program. In my rehabilitation experience and professional judgement, this patient meets medical necessity criteria and requires an inpatient rehabilitation stay to manage current nursing and medical issues. The patient requires supervision by a rehabilitation physician at least three times a week. The patient requires the Interdisciplinary team approach of an inpatient rehabilitation program. This patient can reasonably expect to participate and benefit from the intensive Inpatient rehabilitation program offered at [facility] . documented in this encounter Plan of Treatment Not on file documented as of this encounter Visit Diagnoses Not on filedocumented in this encounter Care Teams Is Architect Relationship Specialty Start Date End Date Pierre Bergeron MD [address] [place] [id number] PCP - General 06/20/21 [place] [id number] [address] [place], [place] [id number] Consulting Physician Nephrology 06/24/21 [place] [address] [facility] [address] [place] [address] Consulting Physician Pulmonary Disease 06/24/21 Russell Mock MD [address] [place] [address] Consulting Physician Cardiology 06/24/21 Ramon Pastor MD [address] [place] [address] Consulting Physician Nephrology 01/03/22 Lobito Melendez MD [address] [place] [address] Consulting Physician Interventional Cardiology 01/03/22 Quentin Cardenas Jr., MD [address] [place] [address] Consulting Physician Cardiovascular Disease 05/24/22 Elva Kurtz MD [address] [facility] [id number] [place], [place] [id number] Consulting Physician Gynecologic Oncology 05/24/22 Jorge Luis Alvarez MD [address] [place] [address] Consulting Physician Cardiology 01/02/24 documented as of this encounter
--- OUTSIDE RECORDS SUMMARY | 2024-11-05 13:02 | XMS_ITS | Continuity of Care Document ---
Author Organization [facility] Address [address] [place] [address] Care Team Providers Care Diamond Merchant Name Role Phone HARDEEP CORDON Refrigerating Oiler LE JEREZ Certified Technician Specialist PIERRE YBARRA Primary Care Provider [phone] Assessment No assessment recorded. Plan of Treatment Reminders Order Date Submit Date Provider Last Modified By Organization Details Last Modified Time Details Appointments ANY 15 2024 11:30A M Pierre Ybarra MD Not available Not available Not available Lab None recorde d. Referral hematol ogist/o ncologi st referra l - Hemosid erosis? 2024 025 [facility], [address], [address], 11/04/2024 15:40:30 Procedures None recorde d. Surgeries None recorde d. Imaging MAMMO, screeni ng, digital , bilater al 2024 025 [facility], [address] , [place], [address], 11/04/2024 12:16:45 Medication Orders Trulici ty 3 mg/0.5 mL subcuta neous pen injecto r 2024 025 [id number], [address], [place], [place], [id number], 11/04/2024 12:16:33 Bactrim DS 800 mg-160 mg tablet 2024 025 [facility] #[id number], [address], [place], [place], [phone], 11/04/2024 12:14:55 Patient TargetsNo targets recorded. Patient Instructions Encounter Date Encounter Id Patient Instructions Last Modified By Organization Details Last Modified Time 11/04/2024 [id number] mammogram: about this test oajao Not available 11/04/2024 12:05:32 Hematology Bactrim once a day MMG Increase Trulicity to 3 mg weekly Follow up in 7-8 weeks oajao Not available 11/04/2024 12:16:44 Reason for Referral Hemosiderosis? Referring Physician: Pierre Ybarra, Internal Medicine, Encounter Date: 11/04/2024 Problems Name Problem SNOMED Code Status Onset Date Resolution Date Notes Provider Name and Address Organization Details Recorded Time History of total hysterecto my 665273644 Active 2018 Not Available [facility] 4 21:41:35 Osteoarthr itis of knee 119159246 Active 2019 Not Available [facility] 4 21:41:35 Disorder of coronary artery 332753084 Active 2019 Not Available [facility] 4 21:41:35 Cardiomega ly 0904709 Active 2019 Not Available [facility] 4 21:41:36 Urinary tract infectious disease 14615464 Active Not Available [facility] 4 21:41:36 Allergic urticaria 53767069 Active Not Available [facility] 4 21:41:35 Inflammati on of sacroiliac joint 28877092 Active 2021 Not Available [facility] 4 21:41:35 Pneumonia 313872715 Active Not Available [facility] 4 21:41:35 History of malignant neoplasm of colon 981534719 Active 2022 Not Available [facility] 4 21:41:35 History of malignant neoplasm of vulva 747121041 Active 2022 Not Available [facility] 4 21:41:35 Pain of left hip joint 1132652952464 00 Active Not Available [facility] 4 21:41:35 Obstructiv e sleep apnea syndrome 16472063 Active 2022 Not Available [facility] 4 21:41:36 Osteoporos is 50014581 Active 2023 Pierre Ybarra MD Attn: Accounting ,[address] [place], [address] , [place] [facility] 4 11:16:05 Paroxysmal atrial fibrillati on 536964047 Active Pierre Ybarra MD Attn: Accounting ,[address] [place], [address] , [place] [facility] 4 10:17:58 Thoracic back pain 992428228 Active 2024 Pierre Ybarra MD Attn: Accounting ,[address] [place], [address] , [place] [facility] 5 09:39:30 Osteoarthr itis 414411222 Active Not Available [facility] 4 21:41:35 Disorder of lipid metabolism 259650694 Active Not Available [facility] 4 21:41:35 Polyp of colon 79362728 Active Not Available [facility] 4 21:41:35 Herpetic gingivosto matitis 81772417 Active Not Available [facility] 4 21:41:35 Diabetes mellitus 02221344 Active Not Available [facility] 4 21:41:36 End-stage renal disease 57881249 Active Not Available [facility] 4 21:41:35 Cough 70072954 Active Not Available [facility] 4 21:41:35 Problem Notes None recorded. Procedures Surgical History Date Name Laterality Status Provider Name and Address Organization Details Recorded Time 10/09/19 24 Diabetic Foot Exam completed Pierre Ybarra MD Attn: Accounting,[address] [place], [address], [place] [facility] 10/09/2023 09:46:32 03/11/20 23 colonoscopy completed Pierre Ybarra MD Attn: Accounting,[address], [place], [address], [place] [facility] 03/11/2023 09:58:33 03/11/20 23 colonoscopy completed Pierre Ybarra MD Attn: Accounting,[address], [place], [address], [place] [facility] 05/29/2023 11:07:13 03/26/20 22 vulvectomy completed Pierre Ybarra MD Attn: Accounting,[address], [place], [address], [place] [facility] 04/02/2022 08:44:16 02/22/20 22 right colectomy completed Pierre Ybarra MD Attn: Accounting,[address], [place], [address], [place] [facility] 02/26/2022 16:05:58 01/02/20 22 Colonoscopy completed Pierre Ybarra MD Attn: Accounting,[address], [place], [address], [place] [facility] 01/01/2022 15:21:26 01/02/20 22 Colonoscopy completed Pierre Ybarra MD Attn: Accounting,[address], [place], [address], [place] [facility] 01/03/2022 08:49:10 12/27/19 22 EGD completed Pierre Ybarra MD Attn: Accounting,[address], [place], [address], [place] [facility] 12/31/2021 14:01:19 01/19/20 21 Colonoscopy completed Pierre Ybarra MD Attn: Accounting,[address], [place], [address], [place] [facility] 01/19/2021 08:52:54 04/01/20 19 Hemod[place] via av fistula completed Mirella Wang [place] [facility] 04/22/2019 09:36:25 Hemodialysis via av fistula completed Pierre Ybarra MD Attn: Accounting,[address] [facility], [place], [address], [facility] - [facility] 05/17/2016 12:05:29 Caesarean Section completed September [facility] 04/29/2014 11:32:08 Carpal tunnel surgery completed September [facility] 04/29/2014 11:32:08 Imaging Results None recorded. Procedure Notes None recorded. Medical Equipment None Reported. Allergies Allergen ID Allergen Name Allergen Category Reaction Reaction Severity Criticality Documentation Date Start Date Code Code System Note Provider Name and Address Organization Details Recorded Time 003520 ciproflox acin medicatio n Not available Not available Not available 05/01/2021 2551 RxNorm Other react ions and sever ities : 'Adve rse react ion to subst ance' . Pierre Ybarra MD Attn: Accountin g,[address] [place], [address], [facility] 4 10:17:44 573787 Eliquis medicatio n Not available Not available Not available 10/03/2022 24437 36 RxNorm Bleed ing Pierre Ybarra MD Attn: Accountin g,[address] [facility], [place], [address], [place] [facility] 3 09:58:30 1785 Product containin g penicilli n (product) medicatio n other Not available Not available 04/29/2014 50676 8001 SNOMED ? Pierre Ybarra MD Attn: Accountin g,[address] [facility], [place], [address], [place] [facility] 7 10:10:43 1786 Cipro medicatio n rash Not available [facility] 04/29/2014 89332 3 RxNorm Pierre Ybarra MD Attn: Accountin g,[address] [facility], [place], [address], [place] [facility] 4 14:48:41 Medications Name Sig Start Date [...] Available prednisol one acetate 1 % eye drops,nam pension 05/25 completed Not Available Not Available Not [...] completed Not Available Not Available Not Available [place] [facility] active Not Available Not Roxi ilable [...] and Address Organization Details Last Updated DateTime 144.78 cm 46.3 kg/m2 18606.0 5 g 91 /min 93 % 93 % 99 [degF] 18 /min 136 mm[Hg] 66 mm[Hg] Samantha Moreno [place] [facility] 5 11:50:02 Social History Question Answer Notes LastModified by Organizat ion Details LastModified Time Tobacco Smoking Status Former Smoker September HEYDI Zeng, [place] [facility] 04/29/2014 11:32:07 Are You Blind Or Do [...] virus, quadrivalent, preservative 8 completed Not Available [facility] 06/27/2023 21:41:38 Influenza, split virus, quadrivalent, preservative 0 completed Not Available [facility] 06/27/2023 21:41:37 Influenza, split virus, quadrivalent, preservative 1 completed Not Available [facility] 06/27/2023 21:41:38 COVID-19 vaccine, vector-nr, rS-Ad26, PF, 0.5 mL 1 completed Not Available [facility] 06/27/2023 21:41:38 SARS-COV-2 (COVID-19) vaccine, UNSPECIFIED 1 completed Not Available [facility] 06/27/2023 21:41:38 Influenza, split virus, trivalent, preservative 6 completed Not Available [facility] 06/27/2023 21:41:38 Influenza, split virus, quadrivalent, PF 3 completed Not Available [facility] 06/27/2023 21:41:38 influenza, unspecified formulation 2 completed Not Available [facility] 06/27/2023 21:41:38 pneumococcal polysaccharide PPV23 7 completed Not Available [facility] 06/26/2019 02:46:40 Tdap 7 completed Not Available [facility] 06/26/2019 02:49:13 influenza, T2G3-9486 5 completed Not Available [facility] 06/27/2023 21:41:38 Pneumococcal conjugate PCV 13 5 completed Not Available [facility] 06/27/2023 21:41:38 Influenza, split virus, quadrivalent, preservative 6 completed Not Available [facility] 06/27/2023 21:41:38 Pneumococcal conjugate PCV20, polysaccharide NJF156 conjugate, adjuvant, PF 3 completed Tracey Cuadra MA null, [place] [facility] 05/29/2023 11:52:33 Influenza, split virus, quadrivalent, preservative 7 completed Not Available [facility] 06/27/2023 21:41:38 Past Encounters Encounter ID Performer Location Encounter Start Date Encounter Closed Date Diagnosis/Indication Diagnosis SNOMED-CT Code Diagnosis ICD10 Code Diagnosis Note [id number] Pierre Ybarra MD [facility] (Adult Med) [address] [place] [address] 11/04/2024 11:22:08 11/05/2024 09:44:22 Lesion of liver 904154861 K76.9 MRI 08/25/2024 Hemangioma , iron deposits (Liver and spleen). There is a suggestion of hemosidero sis and it is unclear to me if this is normal in a patient with ESRF on HD. I will seek the opinion of her oncologist /hematolog ist. Note from 5CT 07/29/2024 Hepatic lesion 2 cm (Slightly larger), MRI recommende d MRI scan abnormal 844680 003 R93.89 MRI Hemangioma , iron deposits (Liver and spleen) Screening mammography 24 039755 Z12.31 Abscess of buttock 39857 003 L02.31 Diabetes mellitus 574534 09 E11.9 Increase Trulicity to 3 mg weekly, GI side effects were discussed. Upper resp iratory tract finding 246126061 R09.89 Health Concerns Section Related Observation LastModified by Organization Detai ls LastModified Time None Recorded Concern Status LastModified by Organization Details LastModified Time None Recorded Payers Encounter Date Sequence Insurance Name Policy Number Policy Hodgson Covered Member ID Hodgson Member ID Guarantor Name 11/04/2024 2 [place] WHEN MEDICARE OR MEDICARE REPLACEMENT PRIMARY) Daniel Dahmm [id number] Daniel Rivera 11/04/2024 1 [facility] (MEDICARE REPLACEMENT/AD VANTAGE - PPO) [id number] Daniel Rivera [id number] Daniel Rivera Notes Date Note Type Note Provider Name and Address Organization Details Recorded Time 11/04/2024 text/html Diabetes F/URepo rted bypatient.Associated Symptoms:weight gain (5 lbs) Follow upI have to get a CT ColographThat is like not working any more, I am not losing ... Ms. Rivera returns, she thinks she has allergies, she has been coughing and sneezing, there is no reported shortness of breath or chest pain. 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 Pierre Ybarra MD Attn: Accounting,[address] [place], [address], [place] [facility] 11/04/2024 13:56:10 OBGyn Episode No OBEpisode recorded.
--- OUTSIDE RECORDS SUMMARY | 2024-11-05 13:02 | XMS_ITS | Clinical Summary ---
Author Organization [facility] Address [address] [facility] [place] [address] Care Team Providers Care Fan Engine Engineer Name Role Phone Pierre Bergeron MD Primary Care Provider Source Comments [facility],non-owned Affiliates and Associated Physician Practices is amultiple site organization consisting of ambulatory clinics and hospital sitesin [place], [place], [place] and [place]. This disclosure is being madepursuant to the Care Everywhere program and may not contain all information available regarding this patient. Last updated 18.[facility] Allergies Active Allergy Reactions Criticality Noted Date Comments Apixaban Bleeding 10/10/2022 Ciprofloxacin Rash Medium 11/15/2013 Penicillins Other Medium 11/15/2013 Epistaxis after tonsillectomy over 50 years ago Medications * Be aware that medications may not be up to date on this document. Alwaysverify current medications with the patient. albuterol HFA (PROVENTIL; VENTOLIN; PROAIR) 108 (90 Base) MCG/ACT inhaler Inhale 2 (two) puffs by mouth 2 times daily Use morning of surgery and bring Active atorvastatin (LIPITOR) 80 MG tablet Take 1 (one) tablet by mouth at bedtime Active acetaminophen (TYLENOL) 500 MG tablet Take 2 (two) tablets by mouth every 4 hours as needed for Pain or Headache (2 tabs prn pain) Maximum allowable Acetaminophen amount = 4 Grams (4000 mg) / 24 hours. Active DULoxetine (CYMBALTA) 30 MG capsule Take 1 (one) capsule by mouth once daily 04/30/20 20 Active midodrine (PROAMATINE) 10 MG tablet Take 1 (one) tablet by mouth once daily Dialysis days. Take one at the start of dialysis and one in the middle of dialysis. 04/21/20 20 Active Fluticasone-Ume clidin-Vilant (TRELEGY ELLIPTA) 100-62.5-25 MCG/INH Inhale 1 (one) puff by mouth at bedtime Active allopurinol (Zyloprim) 100 MG tablet Take 1 (one) tablet by mouth every morning 05/05/20 21 Active gabapentin (Neurontin) 300 MG capsule Take 1 (one) capsule by mouth 3 times daily Active docusate sodium (Colace) 100 MG capsule Take 1 (one) capsule by mouth once daily Active sevelamer carbonate (Renvela) 800 MG Take 4 (four) tablets by mouth 3 times daily with meals And one with snacks 11/28/19 23 Active meloxicam (Mobic) 7.5 MG tablet Take 1 (one) tablet by mouth once daily 01/13/20 23 Active B Esinodh-Z-Hfdme Acid (Argelia-Kelsy) Take 1 (one) tablet by mouth once daily 04/12/20 23 Active pantoprazole EC (Protonix) 40 MG tablet Take 1 (one) tablet by mouth once daily 05/17/20 23 Active traMADol (Ultram) 50 MG tablet Take 1 (one) tablet by mouth 2 times daily as needed 06/12/19 24 Active aspirin (Aspirin) 81 MG chew tablet Take 1 (one) tablet by mouth once daily Active dulaglutide (Trulicity) 1.5 MG/0.5ML injection Inject 1.5 (one and one-half) mg subcutaneously every 7 days (once a week) tuesdays Active acetaminophen-c odeine (Tylenol #3) 300-30 MG tablet Take 1 (one) tablet by mouth 4 times daily as needed 01/08/20 24 Active denosumab (Prolia) 60 MG/ML SC injection Inject 1 mL subcutaneously once Every 6 months next dose due 08/03/24 12/25/19 24 Active cinacalcet (Sensipar) 30 MG tablet Gets at dialysis Act anila HYDROcodone-desiree taminophen ([place]) 10-325 MG tabletIndicatio ns:Encounter regarding vascular access for dialysis for end-stage renal disease (HCC) Take 1 (one) tablet by mouth every 6 hours as needed for Pain 30 tablet 10/13/19 25 Active Additional Information Patient not taking.Reported on 11/02/2024 HYDROcodone-desiree taminophen ([place]) 7.5-325 MG tabletIndicatio ns:Encounter regarding vascular access for dialysis for end-stage renal disease (HCC) Take 1 (one) tablet by mouth every 6 hours as needed for Pain 30 tablet 07/27/19 25 025 Discontinu ed(Tx Complete) doxycycline monohydrate 100 MG capsule Take 1 (one) capsule by mouth once daily for 5 days 5 capsule 10/13/19 25 025 Active Problems Problem Noted Date Diagnosed Date Encounter regarding vascular access for dialysis for end-stage renal disease 07/08/2022 Venous thoracic outlet syndrome of right subclav gloria vein 08/22/2020 Subclavian vein occlusion, 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 Left arm swelling 10/28/2019 Infection of AV graft for dialysis 06/07/2019 Arm wound, right, subsequent encounter 9 ESRD (end stage renal disease) 04/11/2016 Complication of arteriovenous dialysis fistula Morbid obesity Encounters Date Type Department Care Team Description 11/02/2024 11:00 AM CDT Office Visit [facility] - Surgery [address] [place] [address], [address] [place] [address] Jose David Machuca MD Postop check (Primary Dx) 11/02/2024 Travel 10/12/2024 7:38 AM CDT Anesthesia Event [facility] - Perioperative Surgery [address] [place] [phone] Sameer Christie MD Shaw, Thomas J, DO 10/12/2024 7:30 AM CDT - 10/12/2024 8:54 AM CDT Surgery [facility] Perioperative Surgery [address] [place] [phone] Jose David Machuca MD RESECTION RIGHT ARM ANEURYSM, PLACE ACUSEAL, advancement flap closure 10/12/2024 5:22 AM CDT - 10/12/2024 11:44 AM CDT Hospital Encounter [facility] Perioperative Surgery [address] [place] [address] Jose David Machuca MD Surgery General Discharge Disposition: Home or Self Care 10/12/2024 Travel 10/08/2024 Travel 09/28/2024 8:40 AM CDT Office Visit [facility] - Surgery [address] [place] [address], [address] [place] [address] Jose David Machuca MD Pseudoaneurysm (Primary Dx) 09/28/2024 7:03 AM CDT - 09/28/2024 11:59 PM CDT Hospital Encounter [facility] [address] [place] [address], [address] [place] [address] Adriane Wilson MD Reynolds, Michael D, MD Discharge Disposition: Home or Self Care 09/28/2024 Travel 08/19/2024 11:05 AM CDT Office Visit [facility] - Surgery [address] [place] [address], [facility] [address] [place] [address] Marija Eisenberg, SUGAR DRIER-INDUSTRIAL RELATIONS MANAGER Postop check (Primary Dx) 08/19/2024 Travel 08/12/2024 10:00 AM HYDRAULIC ENGINEER Office Visit [facility] - [address], [address] [address] Marija Eisenberg, SUGAR DRIER-INDUSTRIAL RELATIONS MANAGER Postop check (Primary Dx) 08/12/2024 Travel from Last 3 Months Family History Medical History Relation Name Comments Cancer - Prostate Father Cancer Cervical Mother Cancer - Colon Sister 3 Relation Name Status Comments Father Mother Sister 1 Alive Sister 2 Alive Sister 3 Social History Tobacco Use Types Packs/Day Years Used Date Smoking Tobacco: Former Cigarettes Q uit: 06/09/1999 Smokeless Tobacco: Never Tobacco Cessation:Counseling Given: No Alcohol Use Standard Drinks/Week Comments Yes 0 (1 standard drink = 0.6 oz pur e alcohol) not that often AUDIT-C Answer Date Recorded Frequency of Alcohol Consumption Not on file 06/07/2019 Average Number of Drinks Not on file 019 Frequency of Binge Drinking Monthly 05/11 Comments No Sex and Gender Information Value Date Recorded Sex Assigned at Not on file Legal Sex Female 10:53 AM CDT Gender Identity Not on file Sexual Orientation Not on file Last Filed Vital Signs Vital Sign Reading Time Taken Comments Blood Pressure 113/54 10/12/2024 10:16 AM CDT Pulse 91 10/12/2024 10:16 AM CDT Temperature 36.6 C (97.8 F) 10/12/2024 9:00 AM CDT Respiratory Rate 16 10/12/2024 9:00 AM CDT Oxygen Saturation 97% 10/12/2024 10:16 AM CDT Inhaled Oxygen Concentration - - Weight 98.4 kg (217 lb) 11/02/2024 10:52 AM CDT Height 142.2 cm (4' 8) 11/02/2024 10:52 AM CDT Body Mass Index 48.65 11/02/2024 10:52 AM CDT Plan of Treatment Upcoming Encounters Date Type Department Care Team (Late st Contact Info) Description 11/08/2024 10:30 AM CDT Office Visit [facility] - Surgery [address] [place] [address], [address] [address] Jose David Machuca MD [address] [place] [phone] 11/15/2024 9:30 AM CDT Appointment [facility] Vascular Services [address] [place] [address], [address] [address] Felix Adam MD [address] [place] [phone] Jose David Machuca MD [address] [place] [phone] 11/18/2024 12:00 PM CDT Office Visit [facility] - Orthopedics [address] [place] [address] [place] [address] Jenniefr Leonard PA-C [address] [place] [address] Health Maintenance Due Date Last Done Comments BONE DENSITY TESTING 1955 COLOGUARD (AGES 45-75) - COLON CA SCREENING [address] COLONOGRAPHY - COLON CA SCREENING 1955 FIT - COLON CA SCREENING 1955 FLEX SIG - COLON CA SCREENING 1955 MAMMOGRAM 1954 DTAP/TDAP/TD VACCINES (1 - Tdap) 1973 PNEUMOCOCCAL VACCINE 50+ (1 of 2 - PCV) 1973 HEPATITIS B VACCINE (1 of 3 - Risk Dialysis 4-dose series) 1974 ZOSTER VACCINE (1 of 2) 2004 Respiratory Syncytial Virus (RSV) Vaccine Pt: or over 60 yrs (1 - Risk 60-74 years 1-dose series) 2014 COVID-19 VACCINE (2 - season) 2024 08/28/2020 DEPRESSION SCREENING 06/09/2024 MEDICARE AWV CALENDAR YEAR 2024 INFLUENZA VACCINE (Season Ended) 2025 03/09/2022, 06/11/2021, 03/09/2021, Additional history exists SCREENING FOR DIABETES 10/13/2027 , 07/27/2024, 08/24/2020, Additional history exists COLONOSCOPY - COLON CA SCREENING 03/11/2033 03/11/2023, 01/22/2022, 01/01/2022 Colorectal Cancer Screening 03/11/2033 HEPATITIS C SCREENING Completed 11/08/2022 , 11/08/2022, 04/29/2022, Additional history exists HIB VACCINE Aged Out No longer eligi ble based on patient's age to complete this topic HPV VACCINE Aged Out No longer eligi ble based on patient's age to complete this topic MENINGOCOCCAL (Group B) VACCINE SHARED DECISION-MAKING Aged Out No longer eligible based on patient's age to complete this topic MENINGOCOCCAL GROUPS A/C/Y/W VACCINE Aged Out No longer eligible based on patient's age to complete this topic Medical Devices Implanted Type Area Applied Anthropologist Device Identifier Shelf Expiration Date Model / Serial / Lot Fuller, Floseal Hemostatic Matrix Implanted:Qty: 1 on 02/01/2014 by Jose David Machuca MD at [facility] Left: Arm 04/07/2015 [id number] / / [id number] Viabahn Stent Implanted:Qty: 1 on 08/22/2020 by Jaime Ulloa MD at [facility] Right: Subclavian [employer] 02/14/2023 [id number] / [id number] / Graft Vasc 4-7mm 45cm Raymond Acuseal Tpr - [id number] Implanted:Qty: 1 on 10/12/2024 by Jose David Machuca MD at [facility] Right: Arm [employer] 01/19/2027 [id number] / [id number] / Procedures Procedure Name Priority Date/Time Associated Diagnosis Comments ME REPR DFCT ART AXILLO-BRACH 10/12/2024 7:38 AM CDT BASIC METABOLIC PANEL (CALCIUM TOTAL) STAT 10/12/2024 6:35 AM CDT Pre-op exam CARDIAC RHYTHM STRIP ORDER 09/30/2024 2:47 PM CDT IR ANGIO AV SHUN[facility]AG[facility] Routine 09/28/2024 8:39 AM CDT ESRD (end stage renal disease) (HCC) from Last 3 Months Results * (ABNORMAL) BASIC METABOLIC PANEL (CALCIUM TOTAL) (10/12/2024 6:35 AM CDT) Glucose 113(H) 70 - 99 mg/dL 10/12/2024 6:59 AM CDT [facility] Sodium 141 136 - 145 mmol/L 10/12/2024 6:59 AM CDT [facility] Potassium 4.7 3.5 - 5.1 mmol/L 10/12/2024 6:59 AM CDT [facility] Chloride 98 98 - 107 mmol/L 10/12/2024 6:59 AM CDT [facility] CO2 28 22 - 29 mmol/L 10/12/2024 6:59 AM CDT [facility] Calcium 10.1 8.4 - 10.4 mg/dL 10/12/2024 6:59 AM CDT [facility] Anion Gap 15 6 - 16 mmol/L 10/12/2024 6:59 AM CDT [facility] BUN 35(H) 7 - 26 mg/dL 10/12/2024 6:59 AM CDT [facility] Creatinine 7.09(H) 0.57 - 1.11 mg/dL 10/12/2024 6:59 AM CDT [facility] eGFR by CKD-EPI 6(L) >=90 mL/min/1.7 3 m2 10/12/2024 6:59 AM CDT [facility] Blood BLOOD SPECIMEN / Unknown Venipuncture / Unknown 10/12/2024 6:35 AM CDT 10/12/2024 6:37 AM CDT Felix Moore DO LAB - CHEMISTRY ORDERABLES Olena l Result [facility] [address] [place] [address] * CARDIAC RHYTHM STRIP ORDER (09/30/2024 2:47 PM CDT) Narrative 09/30/2024 2:47 PM CDT Ordered by an unspecified provider. Scanned Document CARDIAC SERVICES ORDERABLES Fin al Result * IR Angio Av [facility] (09/28/2024 8:39 AM CDT) Anatomical Region Laterality Modality Lower Extremity, Upper Extremity, Chest X-Ray Angiography Narrative 09/28/2024 12:23 PM CDT Jose David Machuca MD 09/28/2024 12:26 PM [facility] 1955 DATE OF PROCEDURE: 09/28/2024 ORDERING PHYSICIAN: Jose David Machuca MD PROCEDURE: Right upper arm AV fistulogram with successful angioplasty of the cephalic arch with a 9 x 4 balloon. Central venous angioplasty of the right subclavian vein with a 9 x 4 balloon. IV conscious sedation. INDICATIONS FOR PROCEDURE: Increased pulsatility of right upper arm AV fistula with prolonged bleeding at dialysis and increasing and painful pseudoaneurysms formation. DESCRIPTION OF PROCEDURE: Once patient was prepped and draped in the usual sterile fashion she was given 1% lidocaine as local anesthetic. She tolerated this well. The micropuncture set was used to cannulate the right upper arm AV fistula fistulogram was obtained. This showed an excellent fistula but there was high-grade stenosis in a cephalic arch stent and also in the right subclavian vein stent. Tract was dilated and a 7 Swedish sheath was inserted. Patient was given IV conscious sedation once the airway was found to be widely patent and this included 0.5 mg of Versed and 50 mcg of fentanyl. 9 x 4 balloon was then inserted in angioplasty of cephalic arch was performed with excellent results on completion angiography. The balloon was then used to angioplasty of right subclavian vein stent with excellent results on completion angiography. The patient tolerated the procedure well and was found to be stable postoperatively. Preoperatively the patient understood the risks of the procedure to be bleeding and infection and wanted to proceed. During the procedure we used 35 cc of Isovue and 7.7 mGy. 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
--- OUTSIDE RECORDS SUMMARY | 2024-11-05 13:02 | XMS_ITS | Continuity of Care Document ---
Author Organization [facility] Address [address] [place] [address] Phone Care Team Providers Care Harness Rigger Name Role Phone Martita GREENE MD, Luke Unavailable Unavaila ble Advance Directives Directive Yes / No Effective Date File Name No Information Encounters Encounter Description Practice Location Reason(s) For Visit Diagnoses Date Provider Providers Copied on Encounter [facility], [address] [facility] [address] [place] [address], [id number], [place] tel:[phone] [facility] No Information Sep-2 1 Martita Miguel er. [address] [facility], [address], [place], [place], [id number] , [place]. tel: [phone] Family History Family Member Type Diagnosis Age At Onset No Information Payers Payer name Insurance type Covered constitution party ID Authoriza tion(s) No Information Social History Type Description Quantity Date Captured Comments Sex Female Smoking Status No Information Chief Complaint And Reason For Visit No Information Reason For Referral Reason For Referral No Information History Of Present Illness Encounter Date Complaint History Of Prese nt Illness No Information Functional Status Date Functional Assessmen t No Information Instructions Date Instruction Additional Infor mation No Information Assessments Type Assessment Date No Information Patient Care Teams Name Effective Dates (start - stop) Status Members No Information
--- OUTSIDE RECORDS SUMMARY | 2024-11-05 13:02 | XMS_ITS ---
Author Organization [facility] Address [address] [place] [address] Care Team Providers Care Practice Clinician Name Role Phone Pierre Bergeron MD Primary Care Provider Mattie Oliver MD Unavailable [phone] Jose David Simpson MD Unavailable Russell Mock MD Unavailable [phone] Ramon Pastor MD Unavailable [phone] Lobito Melendez MD Unavailable [phone] Theresa Godinez MD, Quentin Roe Unavailable Elva Kurtz MD Unavailable [phone] Jorge Luis Alvarez MD Unavailable [phone] Active Problems Problem Noted Date Diagnosed Date Type 2 diabetes mellitus wit h hyperglycemia, without long-term current use of insulin 06/29/2024 Paroxysmal SVT (supraventricular tachycardia) Age-related osteoporosis wit hout current pathological fracture 12/14/2023 Assessment & Plan (06/29/2024 11:57 AM WINDOWS ARCHITECT): H/o Osteoporosis Chronic, unknown status We will [...] (04/03/2022): Added automatically from request for surgery [id number] Sternoclavicular joint pain, right 04/03/2022 Overview (05/07/2022): Added automatically from request for surgery [id number] Physical deconditioning 03/28/2022 Vulvar carcinoma 03/26/2022 Cor pulmonale 03/22/2022 S/P right colectomy 03/01/2022 EDWINA III (vulvar intraepithelial neoplasia III) 0 01/31/2022 Overview (01/31/2022): Added automatically from request for surgery [id number] Vulvar cancer 01/30/2022 Malignant neoplasm of ascending colon 01/15/2022 Overview (01/15/2022): Added automatically from request for surgery [id number] Complication of arteriovenous dialysis fistula 0 01/15/2022 Herpetic gingivostomatitis 01/15/2022 Upper GI bleed 12/26/2021 SVT (supraventricular tachycardia) 12/18/2021 Overview (12/18/2021): Added automatically from request for surgery [id number] Inflammation of sacroiliac joint 08/30/2021 Hyperkalemia 06/20/2021 [...] Paroxysmal supraventricular tachycardia 06/09/18 60 Steroid-induced hyperglycemia Current Treatment and Therapy Plans No current plan information found. Other Current Plans denosumab (PROLIA) Injection* Plan Start Date:08/03/2024 Plan Provider:Bradley Kruse MD Linked Problems Age-related osteoporosis wit hout current pathological fracture Treatment Medications No medications scheduled. Past Treatment and Therapy Plans Lifetime Dose Tracking * Chemical Lifetime Dose Automatic Entry Manual Entr y Fluoro Time 0.5 minutes 0.5 minutes 0 minutes Air kerma at the reference point (Ka,r) 409.2 mGy 1 4.2 mGy 395 mGy Resolved Problems Problem Noted Date Diagnosed Date [...]
--- OUTSIDE RECORDS SUMMARY | 2024-11-05 13:02 | XMS_ITS | Continuity of Care Document ---
Author Organization [facility] Address [address] [place] [address] [place] [address] Phone Care Team Providers Care Transportation Museum Helper Name Role Phone Blake Valdez MD Unavailable Unavailable Advance Directives Directive Yes / No Effective Date File Name No Information Encounters Encounter Description Practice Location Reason(s) For Visit Diagnoses Date Provider Providers Copied on Encounter [facility], [address], [place], [place], [id number], [place] tel:[phone] [facility] [place] No Information [address]. [address], [address], [place], [place], [id number], [place]. tel:[phone] Family History Family Member Type Diagnosis Age At Onset No Information Payers Payer name Insurance type Covered democrat ID Authoriza tion(s) No Information Social History [...]
--- OUTSIDE RECORDS SUMMARY | 2024-11-05 13:02 | XMS_ITS | Clinical Summary ---
Author Organization [facility] Home Care [facility] Address [address] [place] [address] Care Team Providers Care Lithostripper Name Role Phone Pierre Bergeron MD Primary Care Provider Mattie Oliver MD Unavailable [phone] Jose David Simpson MD Unavailable Russell Mock MD Unavailable [phone] Ramon Pastor MD Unavailable [phone] Lobito Melendez MD Unavailable [phone] Theresa Godinez MD, Quentin Roe Unavailable [phone] Elva Kurtz MD Unavailable Jorge Luis Alvarez MD Unavailable Allergies Active Allergy Reactions Criticality [...] by mouth 3 (three) times a week M-W-F at dialysis Active DULoxetine DR (CYMBALTA) 30 [...] skin once for 1 dose 1 mL Active Active Problems Problem Noted Date Diagnosed Date Type 2 diabetes mellitus wit h hyperglycemia, without long-term current use of insulin 06/29/2024 Paroxysmal SVT (supraventricular tachycardia) Age-related osteoporosis wit hout current pathological fracture 12/14/2023 Assessment & Plan (06/29/2024 11:57 AM BUILDING SPECIALIST): H/o Osteoporosis Chronic, unknown status We will [...] (04/03/2022): Added automatically from request for surgery [id number] Sternoclavicular joint pain, right 04/03/2022 Overview (05/07/2022): Added automatically from request for surgery [id number] Physical deconditioning 03/28/2022 Vulvar carcinoma 03/26/2022 Cor pulmonale 03/22/2022 S/P right colectomy 03/01/2022 EDWINA III (vulvar intraepithelial neoplasia III) 0 01/31/2022 Overview (01/31/2022): Added automatically from request for surgery [id number] Vulvar cancer 01/30/2022 Malignant neoplasm of ascending colon 01/15/2022 Overview (01/15/2022): Added automatically from request for surgery [id number] Complication of arteriovenous dialysis fistula 0 01/15/2022 Herpetic gingivostomatitis 01/15/2022 Upper GI bleed 12/26/2021 SVT (supraventricular tachycardia) 12/18/2021 Overview (12/18/2021): Added automatically from request for surgery [id number] Inflammation of sacroiliac joint 08/30/2021 Hyperkalemia 06/20/2021 [...] Dyslipidemia 11/29/2010 01/30/2022 Supraventricular tachycardia 06/09/1960 01/30/2022 Encounters Date Type Department Care Team Description 08/25/2024 7:03 AM CDT - 08/25/2024 11:59 PM CDT Hospital Encounter [facility] [address] [place] [address] Liver disease, unspecified Discharge Disposition: Discharge to home or self care from Last 3 Months Immunizations Immunization Administration Dates Next Due INFLUENZA [id number] 2015 Influenza, Quadrivalent, Spl it, Intramuscular 03/08/2021,02/29/2020,03/09/2018,03/10,03/09/2016 Influenza, Quadrivalent, Spl it, Preservative Free, Intramuscular 03/09/2013 Influenza, Trivalent, IM (MDV) 03/11/2016 Influenza, Unspecified 03/09/2022,03/09/2021 Pneumococcal Conjugate PCV 13 08/07/2014 Pneumococcal Polysaccharide PPV23 03/11/2017 Sars-CoV-2, Unspecified 09/08/2020,09/07/2020 Tdap 03/11/2017 Surgical History Surgery Date Site/Laterality Comments HYSTERECTOMY W/ BILATERAL SALPINGOOPHORECTOMY 06/09/1998 - 06/08/1999 Bilateral supracervical; reported endometriosis CARPAL TUNNEL RELEASE Bilateral SECTION FIRST RIB REMOVAL Right ABLATION 06/09/2004 - 06/08/2005 SVT ablation and Bio loop recorder implantation 05/09/2016 CATARACT EXTRACTION Bilateral COLONOSCOPY 01/22/2022 Previous colonoscopy 01/01. Polyp biopsy result f/u CHOLECYSTECTOMY CARDIAC CATHETERIZATION OTHER SURGICAL HISTORY endoprosthetic stent bilateral chest/shoulder x1 in right; x4 in the left arm COLON SURGERY TONSILLECTOMY IR PICC LINE PLACEMENT > 5 YEARS 05/06/2022 N/A AV FISTULA PLACEMENT had in left arm; now in the right RADICAL VULVECTOMY Right Medical History Medical History Date Comments Hypertension Diabetes mellitus (HCC) Hyperlipidemia CHF (congestive heart failure) (HCC) Coronary artery disease History of cardiac radiofrequency ablation x2 Sleep apnea Atrial fibrillation (HCC) CKD (chronic kidney disease) Arthritis Morbidly obese (HCC) 06/20/2021 SVT (supraventricular tachycardia) Covid-19 06/2021 ESRD (end stage renal disease) ([facility]) 04/11/2016 Dialysis patient Infection of AV graft for dialysis 06/07/2019 GERD (gastroesophageal reflux disease) Type 2 diabetes mellitus (HCC) Malignant neoplasm of ascending colon (HCC) 2021 Vulvar cancer (HCC) 2021 Acute respiratory failure requiring reintubation (HCC) with COPD (chronic obstructive pulmonary disease) (HC C) Asthma Depression Family History Medical History Relation Name Comments Cancer Father Hypertension Father Cancer Mother senior validation engineer Colon cancer Sister Anesthesia problems Neg Hx Malig Hypertension Neg Hx Malig Hyperthermia Neg Hx Pseudochol deficiency Neg Hx Relation Name Status Comments Father Mother Sister Social History Tobacco Use Types Packs/Day Years Used Date Smoking Tobacco: Former Cigarettes 2 30 1 968 - 1997 Smokeless Tobacco: Never Tobacco Cessation:Counseling Given: Not [...] 12/05/2022 How often do you attend chur [employer] or mu-ism services? Never 12/05/2022 Do you belong to any clubs o r organizations such as jehovah's witness groups, unions, fraternal or athletic groups, or [...] staff should administer the PHQ-9) 0 11/27/2023 [facility] - Occupational Stress [...] place to sleep or slept in a [place] health [place] facility (including now)? No 12/05/2022 Personal Safety Answer [...] on file Legal Sex Female 7:11 PM BUILDING SPECIALIST Gender Identity Not on file Sexual Orientation Not on file Occupation Industry Job Start Date Job End Date On disability due to ESRD on HD. 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 Not on file Not on file Not on file Obstetrics History Para Term AB IAB SAB Ectopic Multiple Livin g Live Births 1 1 1 0 0 0 0 0 0 1 1 Date Outcome GA Total Labor Labor/2nd/3rd Weight Sex Type Anes PTL Maxine A1 A5 Name Clin 1986 Term M CS-Un spec Living Complications:Cephalopelvic Disproportion Last Filed Vital Signs Vital Sign Reading Time Taken Comments Blood Pressure 135/53 08/03/2024 9:13 AM BUILDING SPECIALIST Pulse 91 08/03/2024 9:13 AM BUILDING SPECIALIST Temperature 37.1 C (98.8 F) 08/03/2024 9:13 AM BUILDING SPECIALIST Respiratory Rate 19 08/03/2024 9:13 AM BUILDING SPECIALIST Oxygen Saturation 95% 08/03/2024 9:13 AM BUILDING SPECIALIST Inhaled Oxygen Concentration - - Weight 101.1 kg (222 lb 14.4 oz) 08/03/2024 9:13 AM BUILDING SPECIALIST Height 142.2 cm (4' 8) 08/03/2024 9:13 AM BUILDING SPECIALIST Body Mass Index 49.97 08/03/2024 9:13 AM BUILDING SPECIALIST Plan of Treatment Health Maintenance Due Date Last Done Comments Albumin Creatinine Ratio, Urine 1954 Dilated Eye Exam 1954 Foot Exam 1954 Zoster Vaccine (1 of 2) 2004 Well Visit 65+ 2019 Osteoporosis Screening-Bone Density Scan 08/03/2021 08/03/2019 Lipid Panel 05/13/2023 05/13/2022, 03/09, 04/15/2014 Hemoglobin A1C 05/30/2023 11/28/2022, 1210/2021, 02/13/2022, Additional history exists Covid-19 Vaccine (2023-2 5 season) 2024 09/08/2020, 09/07/2020, 08/28/2020 Breast Cancer Screening-Mammogram 10/21/2024 10/22/2023, 10/21/2023, 10/15/2022, Additional history exists Depression Screening 11/26/2024 11/27/2023, 04/03/2022, 04/03/2022, Additional history exists Influenza Vaccine (Season Ended) 2025 03/09/2022, 06/11/2021, 03/09/2021, Additional history exists eGFR 07/29/2025 07/29/2024, 12/08, 12/29/2023, Additional history exists Fall Risk Assessment 08/03/2025 08/03/2024, 11/27/19 24 DTaP/Tdap/Td Vaccine (2 - Td or Tdap) 03/11/2027 03/11/2017 Colon Cancer Screening-Colonoscopy 03/11/2033 03/11/2023, 01/22/2022, 01/01/2022 Pneumococcal vaccine 65+ Completed 022, 03/11/2017, 08/07/2014 Hepatitis B Screening Completed 01/02/2024 , 10/31/2023, 11/15/2022 Hepatitis C Screening Completed 01/02/2024 , 11/08/2022, 04/29/2022, Additional history exists Medical Devices Implanted Type Area Racking Machine Operator Device Identifier Shelf Expiration Date Model / Serial / Lot Endoprosthesis- 03/25/2019 Implanted:Qty: 1 on 03/25/2019 Endoprosthesis Left: [employer] Stent-02/12/2022 Implanted:Qty: 1 on 02/12/2022 Stent Right: Subclavian [place] [id number] / [id number] / [employer] Device Clsr Perclose Prostyle Sut-Mediatd Closure-Repair Sys [id number] - [id number] Implanted:Qty: 1 on 12/03/2022 by Lobito Melendez MD at [facility] Vascular [id number] / / [employer] Percutaneous Transcatheter Amplatzer Amulet 18mm [id number] - [id number] Implanted:Qty: 1 on 12/03/2022 by Lobito Melendez MD at [facility] 03/08/2027 [id number] / / [id number] Procedures Procedure Name Priority Date/Time Associated Diagnosis Comments MRI ABDOMEN LIVER W WO CONTRAST Schedule Routine, Read Routine (OP Routine) 08/25/2024 8:52 AM CDT Liver disease, unspecified EGFR Routine 07/29/2024 8:36 AM BUILDING SPECIALIST Age-related osteoporosis without current pathological fracture HEPATITIS PANEL, ACUTE Routine 01/02/2024 8:45 AM CDT COLONOSCOPY 03/11/2023 7:38 AM CDT HEMOGLOBIN A1C Routine 11/28/2022 2:54 PM CDT Encounter for preadmission testing Type 2 diabetes mellitus with chronic kidney disease on chronic dialysis, without long-term current use of insulin (HCC) LIPID PANEL Routine 05/13/2022 8:03 AM BUILDING SPECIALIST from Last 3 Months or Most Recently [...] deposition. Unchanged hemangioma. Adrenals: Normal Kidneys: Atrophic [place] kidneys with scattered cysts. No suspicious renal [...] deposition. Unchanged hemangioma. Adrenals: Normal Kidneys: Atrophic [place] kidneys with scattered cysts. No suspicious renal [...] Result * (ABNORMAL) eGFR (07/29/2024 8:36 AM BUILDING SPECIALIST) eGFR 4(L) >=60 mL/min/1. 73 m2 Comment: [...] last reviewed 2021. Blood 07/29/2024 8:36 AM BUILDING SPECIALIST 07/29/2024 8:36 AM BUILDING SPECIALIST us Bradley Laureano MD LAB BLOOD ORDERABLE S Final Result [facility] [address] [address] Department [place] [address] * Hepatitis panel, acute Blood (01/02/2024 8:45 AM CDT) Hep A IgM Nonreactive Nonreactive Comment: Interpretive Data: If Hep A IgM Ab is reported as Equivocal, a new sample should be drawn in two weeks for testing. Current interpretive data was last revised on 19. Hep B core IgM Nonreactive Nonreactive [facility] Comment: Interpretive Data If HepB Core IgM Ab is reported as Equivocal, a new sample should be drawn in two weeks for testing. Current interpretive data was last revised on 19. Hep C Ab Nonreactive Nonreactive [facility] Comment: Interpretive Data Nonreactive: Antibodies to [...] last revised on 2019. HepBsAg Nonreactive Nonreactive [facility] Blood 01/02/2024 8:45 AM CDT 01/02/2024 8:48 AM CDT Ramon Pastor MD LAB MICROBIOLOGY - GENERAL ORD ERABLES Final Result [facility] [address] Department [place] [address] * COLONOSCOPY (03/11/2023 7:38 AM CDT) Anatomical Region Laterality Modality Other Narrative Procedure Note Julio C Saavedra MD - 03/11/2023 7:38 AM CDT - [facility] Patient Name: Daniel [...] (Anesthesia Staff), Theodora Olivera RN, Amor Mcdonald, Claim Rep Referring MD: Pierre Bergeron MD Medicines: Monitored [...] intestine K64.8, Other hemorrhoids CPT copyright 2020 [employer]. All rights reserved. The codes documented in this report are preliminary and upon yardage tufting machine operator reviewmay be revised to meet current compliance [...] and children were not included. (Diabetes Care 31:9872-9515, 2008). The eAG is not equivalent to a fasting glucose. Blood 11/28/2022 2:54 PM CDT 11/28/2022 4:09 PM CDT Lobito Melendez MD LAB BLOOD [place] [address] [address] Department of Laboratories [place], [place] [id number] * (ABNORMAL) Lipid panel (05/13/2022 8:03 AM BUILDING SPECIALIST) Pathologist [facility] Cholesterol 76 30 - 199 mg/dL [place] Comment: Interpretive Data Ages < or = [...] on 2018. Triglycerides 168(H) <=149 mg/dL [place] Comment: Interpretive Data Ages < or = [...] on 2018. HDL 26(L) >=40 mg/dL [place] Comment: Interpretive Data Ages < or = [...] 2018. LDL, calculated 16 <=129 mg/dL [place] Comment: Interpretive Data Ages < or = [...] 3 [place] Blood 05/13/2022 8:03 AM BUILDING SPECIALIST 05/13/2022 8:03 AM BUILDING SPECIALIST Anika Machado DO LAB [place]LOOD [place] [address] [address] Department [place] [address] from Last 3 Months or Most Recently Relevant to Health Maintenance Insurance IDPA [facility] MEDICARE ADVANTAGE [facility] MEDICARE ADVANTAGE IDKY [facility] MEDICARE [facility] Address: [address] [address] [place] [address] Advance Directives For more information, please contact: [phone] * Full Code (Latest Code Status on [...] 3:19 PM 04/03/2022 1:35 PM Care Teams Lithostripper Relationship Specialty [place] [address] [place] [address] PCP - General 06/20/21 [place] [address] [address] [place], [place] [id number] Consulting Physician Nephrology 06/24/21 [place] [address] [facility] [address] [place] [address] Consulting Physician Pulmonary Disease 06/24/21 Russell Mock MD [address] [place] [address] Consulting Physician Cardiology 06/24/21 Ramon Pastor MD [address] [place] [address] Consulting Physician Nephrology 01/03/22 Lobito Melendez MD [address] [place] [address] Consulting Physician Interventional Cardiology 01/03/22 Quentin Cardenas Jr., MD [address] [place] [address] Consulting Physician Cardiovascular Disease 05/24/22 Elva Kurtz MD [address] [facility] [phone] [place] [address] Consulting Physician Gynecologic Oncology 05/24/22 Jorge Luis Alvarez MD [address] [place] [address] Consulting Physician Cardiology 01/02/24
--- OUTSIDE RECORDS SUMMARY | 2024-11-05 13:02 | XMS_ITS | Encounter Summary ---
Author Organization [facility] Address [address] [place] [address] Care Team Providers Care Supervisor Pastry Name Role Phone Pierre Bergeron MD Primary Care Provider Encounter Details Date Type Department Care Team (Late Contact Info) Description 11/15/2013 [facility] Outpatient Visit EXTERNAL NON-[facility] [place] [address] [place] [id number] Social History Tobacco Use Types Packs/Day Years Used Date Smoking Tobacco: Never Alcohol Use Standard Drinks/Week Comments No 0 (1 standard drink = 0.6 oz pur e alcohol) Comments No Sex and Gender Information Value Date Recorded Sex Assigned at Not on file Legal Sex Female 10:53 AM CDT Gender Identity Not on file Sexual Orientation Not on file documented as of this encounter Plan of Treatment Upcoming Encounters Date Type Department Care Team (Late Contact Info) Description 11/08/2024 10:30 AM CDT Office Visit [facility] - Surgery [address] [facility], [address] [place] [address] [place] [address] [place] [address] 11/15/2024 9:30 AM CDT Appointment [facility] Vascular Services [address] [facility] [place] [address] [place] [address] [facility] [address] [place] [address] [place] [address] [place] [phone] 11/18/2024 12:00 PM CDT Office Visit [facility] - Orthopedics [address] [facility], [facility] [place] [address] Jennifer Leonard PA-C [address] [place] [address] documented as of this encounter Visit Diagnoses Not on filedocumented in this encounter Additional Health Concerns Infection Onset Date Last Indicated Resolved Time 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
--- OUTSIDE RECORDS SUMMARY | 2024-11-05 13:02 | XMS_ITS ---
Author Organization [facility] Address [address] [place] [address] Care Team Providers Care Scanning Clerk Name Role Phone Pierre Bergeron MD Primary Care Provider Mattie Oliver MD Unavailable [phone] Jose David Simpson MD Unavailable [phone] Russell Mock MD Unavailable [phone] Ramon Pastor MD Unavailable [phone] Lobito Melendez MD Unavailable [phone] Theresa Godinez MD, Quentin Roe Unavailable Elva Kurtz MD Unavailable [phone] Jorge Luis Alvarez MD Unavailable Dialysis Access Sites Type Status Location Placement Date Removal Da te AV fistula Active Right Upper Arm - Anterior 2 AV fistula Inactive Right Upper Arm - Anterior 2 01/22/2022 Procedures Procedure Name Priority Date/Time Associated Diagnosis Comments MRI ABDOMEN LIVER W WO CONTRAST Schedule Routine, Read Routine (OP Routine) 08/25/2024 8:52 AM CDT Liver disease, unspecified EGFR Routine 07/29/2024 8:36 AM RN DOCUMENT IMPROVEMENT Age-related osteoporosis without current pathological fracture HEPATITIS PANEL, ACUTE Routine 01/02/2024 8:45 AM CDT COLONOSCOPY 03/11/2023 7:38 AM CDT HEMOGLOBIN A1C Routine 11/28/2022 2:54 PM CDT Encounter for preadmission testing Type 2 diabetes mellitus with chronic kidney disease on chronic dialysis, without long-term current use of insulin (HCC) LIPID PANEL Routine 05/13/2022 8:03 AM RN DOCUMENT IMPROVEMENT from Last 3 Months or Most Recently Relevant to Health Maintenance Allergies Active Allergy Reactions Criticality Noted Date [...] by mouth 3 (three) times a week -W- at dialysis Active DULoxetine DR (CYMBALTA) 30 mg capsule Take 1 capsule (30 mg total) by mouth every morning Active albuterol HFA (PROVENTIL HFA,VENTOLIN HFA,PROAIR HFA) 90 mcg/actuation inhaler Inhale 2 puffs every 8 (eight) hours as needed [address] (PROTONIX) 40 mg EC tablet Take 1 tablet (40 mg total) by mouth every morning 30 tablet 11 3 Active Trulicity 1.5 mg/0.5 mL pen [...] 12/14/2023 Assessment & Plan (06/29/2024 11:57 AM RN DOCUMENT IMPROVEMENT): H/o Osteoporosis Chronic, unknown status We will [...] (04/03/2022): Added automatically from request for surgery [id number] Sternoclavicular joint pain, right 04/03/2022 Overview (05/07/2022): Added automatically from request for surgery [id number] Physical deconditioning 03/28/2022 Vulvar carcinoma 03/26/2022 Cor pulmonale 03/22/2022 S/P right colectomy 03/01/2022 EDWINA III (vulvar intraepithelial neoplasia III) 0 01/31/2022 Overview (01/31/2022): Added automatically from request for surgery [id number] Vulvar cancer 01/30/2022 Malignant neoplasm of ascending colon 01/15/2022 Overview (01/15/2022): Added automatically from request for surgery [id number] Complication of arteriovenous dialysis fistula 0 01/15/2022 Herpetic gingivostomatitis 01/15/2022 Upper GI bleed 12/26/2021 SVT (supraventricular tachycardia) 12/18/2021 Overview (12/18/2021): Added automatically from request for surgery [id number] Inflammation of sacroiliac joint 08/30/2021 Hyperkalemia 06/20/2021 [...] Paroxysmal supraventricular tachycardia 06/09/18 60 Steroid-induced hyperglycemia Immunizations Immunization Administration Dates Next Due INFLUENZA [id number] 2015 Influenza, Quadrivalent, Spl it, Intramuscular 03/08/2021,02/29/2020,03/09/2018,03/10,03/09/2016 [...] How often do you attend chur or oriental orthodox services? Never 12/05/2022 Do you belong to any clubs o r organizations such as jewish groups, unions, fraternal or athletic groups, or [...] staff should administer the PHQ-9) 0 11/27/2023 [facility] - Occupational [...] place to sleep or slept in a custodial (including now)? No 12/05/2022 Personal Safety Answer [...] on file Legal Sex Female 7:11 PM RN DOCUMENT IMPROVEMENT Gender Identity Not on file Sexual Orientation Not on file Occupation Industry Job Start Date Job End Date On disability due to ESRD on HD. 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 Not on file Not on file Not on file Last Filed Vital Signs Vital Sign Reading Time Taken Comments Blood Pressure 135/53 08/03/2024 9:13 AM RN DOCUMENT IMPROVEMENT Pulse 91 08/03/2024 9:13 AM RN DOCUMENT IMPROVEMENT Temperature 37.1 C (98.8 F) 08/03/2024 9:13 AM RN DOCUMENT IMPROVEMENT Respiratory Rate 19 08/03/2024 9:1 3 AM RN DOCUMENT IMPROVEMENT Oxygen Saturation 95% 08/03/2024 9:13 AM RN DOCUMENT IMPROVEMENT Inhaled Oxygen Concentration - - Weight 101.1 kg (222 lb 14.4 oz) 08/03/2024 9:13 AM RN DOCUMENT IMPROVEMENT Height 142.2 cm (4' 8) 08/03/2024 9:13 AM RN DOCUMENT IMPROVEMENT Body Mass Index 49.97 08/03/2024 9:13 AM RN DOCUMENT IMPROVEMENT Results * MRI Abdomen Liver W WO [...] deposition. Unchanged hemangioma. Adrenals: Normal Kidneys: Atrophic round valley kidneys with scattered cysts. No suspicious renal [...] deposition. Unchanged hemangioma. Adrenals: Normal Kidneys: Atrophic round valley kidneys with scattered cysts. No suspicious renal [...] it. Electronically signed by: Agnes Álvarez M.D. Pierre Bergeron MD IMG MRI PROCEDURES Olena l Result * (ABNORMAL) eGFR (07/29/2024 8:36 AM RN DOCUMENT IMPROVEMENT) eGFR 4(L) >=60 mL/min/1. 73 m2 Comment: [...] last reviewed 2021. Blood 07/29/2024 8:36 AM RN DOCUMENT IMPROVEMENT 07/29/2024 8:36 AM RN DOCUMENT IMPROVEMENT us Bradley Laureano MD LAB BLOOD ORDERABLE S Final Result Performing Organization Address [facility] Co de Phone Number [place] [id number] [address] Department [place] [address] * Hepatitis panel, acute Blood (01/02/2024 8:45 AM CDT) Hep A IgM Nonreactive Nonreactive Comment: Interpretive Data: If Hep A IgM Ab is reported as Equivocal, a new sample should be drawn in two weeks for testing. Current interpretive data was last revised on 19. Hep B core IgM Nonreactive Nonreactive [facility] Comment: Interpretive Data If HepB Core IgM Ab is reported as Equivocal, a new sample should be drawn in two weeks for testing. Current interpretive data was last revised on 19. Hep C Ab Nonreactive Nonreactive [facility] Comment: Interpretive Data Nonreactive: Antibodies to HCV [...] last revised on 2019. HepBsAg Nonreactive Nonreactive [facility] Blood 01/02/2024 8:45 AM CDT 01/02/2024 8:48 AM CDT us Ramon Pastor MD LAB MICROBIOLOGY - GENERAL ORD ERABLES Final Result Performing Organization Address City/[facility]/[place] [address] [address] Department [place] [address] * COLONOSCOPY (03/11/2023 7:38 AM CDT) Anatomical Region Laterality Modality Other Narrative Procedure Note Julio C Saavedra MD - 03/11/2023 7:38 AM CDT [facility] Patient Name: Daniel Rivera Procedure [...] NOTAT THIS ADDRESS, AA (Anesthesia Staff), Theodora Olivera, MALENA, Amor Mcdonald, Emergency Management Consultant Referring MD: Pierre Bergeron MD Medicines: Monitored [...] intestine K64.8, Other hemorrhoids CPT copyright 2020 [employer]. All rights reserved. The codes documented in this report are preliminary and upon cement finisher apprentice reviewmay be revised to meet current compliance requirements. Electronically signed by Julio C Saavedra MD Julio C Saavedra M.D. 03/11/2023 8:46:31 AM Number of Addenda: 0 Note Initiated On: 03/11/2023 7:38 AM us Julio C Saavedra MD ENDOSCOPY PROCEDURES Final [...] and children were not included. (Diabetes Care 31:[id number], 2008). The eAG is not equivalent to a fasting glucose. Blood 11/28/2022 2:54 PM CDT 11/28/2022 4:09 PM CDT us Lobito Melendez MD LAB BLOOD ORDERABLES Final Resu lt [place] [id number] [address] Department [place] [address] * (ABNORMAL) Lipid panel (05/13/2022 8:03 AM RN DOCUMENT IMPROVEMENT) Cholesterol 76 30 - 199 mg/dL AW[facility] [...] Pediatrics 2011;128:S213 2. NCEP Expert Panel. Circulation 2003;110:227 Current Interpretive Data was last revised on 2018. Chol/HDL ratio 3 [place] Blood 05/13/2022 8:03 AM RN DOCUMENT IMPROVEMENT 05/13/2022 8:03 AM RN DOCUMENT IMPROVEMENT us Anika Machado DO LAB BLOOD [place] [address] [address] Department [place] [address] from Last 3 Months or Most Recently Relevant to Health Maintenance
--- OUTSIDE RECORDS SUMMARY | 2024-11-05 13:03 | XMS_ITS | Data Portability ---
Author Organization [place] [facility], Main Office Address [address] [place] [address] Care Team Providers Care Office Administration Instructor Name Role Phone SHRUTHI YBARRA Primary Care Provider [phone] SHRUTHI YBARRA Referring Provider [phone] Assessment Encounter Date Assessment Date Assessment LastModified by Organization Details LastModified Time 10/17/2022 10/17/2022 Patient returns mainly for primary complaint today is that of C[facility] arthrosis left wrist. She is tender to palpation has pain to manipulation swelling. We will try a shot of cortisone this was done with 10 mg Kenalog 2 cc 1% lidocaine. For prescription drug management will try course of Voltaren. We talked about knee replacement surgery however BMI is 50 so she would have to lose quite a bit of weight unfortunately 1 of her main problems is only 4 ft 8 in tall which makes getting down to a BMI very difficult. I will see her back in a month for follow-up to see how she is progressing with the thumb and her weight discussed. [email or web address] Not available 10/17/2022 09:47:57 10/30/2023 10/30/2023 pain Rt foot [email or web address] Not available 10/30/2023 12:00:59 Plan of Treatment Reminders Order Date Submit Date Provider Last Modified By Organization Details Last Modified Time Details Appointments None recorded. Lab None recorded. Referral None recorded. Procedures injection/a spiration joint/bursa (PROC) - in office procedure, administere d by provider 2022 023 [email or web address] In-Office Order, Internal Use Only DO Not Attach Compendium DO Not Attach Compendium, Do Not Delete/merge, [id number] 09:44:24 Surgeries None recorded. Imaging None recorded. Medication Orders Kenalog 10 mg/mL suspension for injection [address] [facility], [address] [place], [address], 3 09:45:06 ropivacaine (PF) 5 mg/mL (0.5 %) injection solution [address] [facility], [address] [place], [address], 3 09:45:06 Patient TargetsNo targets recorded. Patient InstructionsNo instructions recorded. Reason for Referral None Reported. Results Created Date Observation Date Name Description Value Unit Range Abnormal Flag Note LastModifiedBy Organization Detail LastModifiedTime 10/24/1910/22/2021 XR, hip + pelvi s, unila teral , 2 or 3 view No observ ation record ed. [id number] Not Available 08/07/2022 09:21:59 11/29/19 MRI, pelvi s, w/o contr ast [facility] [address] [address] Patien t Name: JARRED PEDERSON Access ion #: [id number] Sex: F : 1954 Locati on: IND Attend ing Physic gloria: Madison estrada Physic glroia: LORNA RIOS Exam Date: 022 7:59 AM Exam Name: MRI PELVIS WO Admitt ing Diagno sis(es ): RADIOL OGY REPORT - FINAL EXAM: MRI PELVIS WO HISTOR Y: pain 66-yea r-old female with left hip pain. COMPAR ELI: CT scan of the pelvis dated 2020. TECHNI QUE: Multip lanar multis equenc e noncon trast MR images of the pelvis were perfor med. FINDIN GS: No eviden ce of fractu re or bone marrow edema about the pelvis or hips. No eviden ce of labral tear. No signif icant joint space narrow ing or margin al osteop hytes are identi fied. No eviden ce of femora l head AVN. There are trace bilate ral hip effusi ons, likely physio logic. There is fluid/ edema the left psoas and iliacu s muscle s (image s 7-12, series 4; images 9-14, series 7), with mild fluid signal tracki ng distal ly along the iliops oas tendon . Page 1 of [address] [facility] joel Name: JARRED PEDERSON Access ion #: [id number] Sex: F : 1954 Exam Date: 7:59 AM Exam Name: MRI PELVIS WO Admitt ing Diagno sis(es ): There is fluid signal latera l to the bilate ral greate r trocha nters, right greate r than left. There is a small partia l tear of the right gluteu s medius tendon insert ion. There is lower lumbar degene rative disc diseas e, not comple tely imaged here. The uterus is surgic ally absent . IMPRES MAK: 1. Grade 1-2 left iliops oas partia l muscul ar tear. 2. Small partia l tear of the right gluteu s medius tendon insert ion. Additi onally , there is trocha nteric bursit is, right greate r than left. 3. No eviden ce of fractu re, bone marrow edema, or AVN about either hip. 4. Lower lumbar degene rative disc diseas e and facet arthro frankie, not fully imaged here. 5. Postop erativ e change s of hyster ectomy . Create d and electr onical ly signed by: Domo mercedes MD Signed Date: 12:12 AM (CT) Dictat ed by: Domo mercedes MD DD: 12:12 AM (CT) DT: 12:12 AM (CT) Page 2 of 2 [id number] [facility] (Imaging) [address] [place], [address], 08/07/2022 09:21:59 11/29/19 22 11/27/2021 MRI, pelvi s, w/o contr ast No observ ation record ed. [id number] [facility] [address], [place], [address], 08/07/2022 09:21:59 Result Notes None recorded. Problems Name Problem SNOMED Code Status Onset Date Resolution Date Notes Provider Name and Address Organization Details Recorded Time Pain in left sacroilia c joint 96132167956 686762 Active 2021 Not Available [facility] 3 09:16:17 Extreme obesity with alveolar hypoventi lation 257246160 Active Not Available Count includes the [facility] 3 09:16:17 Morbid obesity 158043412 Active 2021 Not Available Count includes the [facility] 3 09:16:17 Osteoarth ritis of knee 787475279 Active Not Available Count includes the [facility] 3 09:16:17 Pain of left hip joint 96757236326 9100 Active 2021 Not Available Count includes the [facility] 3 09:16:17 Trochante kelly bursitis of left hip 94123706450 9103 Active 2021 Not Available Count includes the [facility] 3 09:16:17 Hypertens anila disorder 56942899 Active Not Available Count includes the [facility] 3 09:16:18 Osteoarth ritis 411208510 Active Not Available Count includes the [facility] 3 09:16:18 Hyperlipi demia 87803002 Active Not Available Count includes the [facility] 3 09:16:18 Supravent ricular tachycard ia 2428404 Active history of, s/p ablation Not Available Count includes the [facility] 3 09:16:18 Diabetes mellitus 46022565 Active Not Available Count includes the [facility] 3 09:16:18 Obstructi ve sleep apnea syndrome 59587185 Active Not Available Count includes the [facility] 3 09:16:18 Cor pulmonale 16156188 Active Not Available Count includes the [facility] 3 09:16:18 Pain of left hand 71175240828 9103 Active 2022 Kerri Conde, LUZ null, [place] - 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 Procedures Surgical History Date Name Laterality Status Provider Name and Address Organization Details Recorded Time 4 Removal of Foreign Body completed Lisandro Omer DPM [address], [employer], [place], [address], [facility] 10/30/2023 12:00:23 3 Ortho - Cortisone Injection completed Lorna Bauer MD [address], [employer], [place], [address], [employer] [facility] 10/17/2022 09:49:07 Imaging Results None recorded. Procedure Notes None recorded. Medical Equipment None Reported. Allergies Allergen ID Allergen Name Allergen Category Reaction Reaction Severity Criticality Documentation Date Start Date Code Code System Note Provider Name and Address Organization Details Recorded Time 39277 Product containin g penicilli n (product) medicatio n Not available Not available Not available 08/07/2022 35005 8001 SNOMED nose bleed s Not Available Count includes the [facility] 3 09:21:54 30490 Cipro medicatio n hives Not available Not available 08/07/202215925 3 RxNorm Not Available Count includes the [facility] 3 09:21:55 Medications Name Sig Start Date Stop Date Status Note LastModified by Organization Details LastModified Time losartan 50 mg tablet Take 1 tablet every day by oral route. 2012 active Not Available Not Available Not Avai lable cyclobenzap rine 10 mg tablet TAKE 1 TABLET BY MOUTH EVERY 8 HOURS active Not Available Not Available No t Available furosemide 40 mg tablet Take 1 tablet every day by oral route. 2012 active Not Available Not Available Not Avai lable atorvastati n 40 mg tablet Take 1 tablet every day by oral route. active Not Available Not Available No t Available atorvastati n 80 mg tablet TAKE 1 TABLET BY MOUTH EVERY DAY active Not Available Not Available No t Available prednisone 10 mg tablet active Not Available Not Available Not Available bumetanide 2 mg tablet Take 1 tablet twice a day by oral route. 2012 active Not Available Not Available Not Avai lable azithromyci n 250 mg tablet active Not Available Not Available Not Available aspirin 325 mg tablet Take 1 tablet every day by oral route. 2012 active Not Available Not Available Not Avai lable Lidocaine Viscous 2 % mucosal solution GARGLE AND SPIT OUT 15 ML FOUR TIMES DAILY NEEDED FOR 3 DAYS active Not Available Not Available No t Available benzonatate 200 mg capsule active Not Available Not Available Not Available sulfamethox azole 400 mg-trimetho prim 80 mg tablet 10/25 completed Not Available Not Available Not Available cephalexin 250 mg capsule TAKE ONE CAPSULE BY MOUTH EVERY 12 HOURS FOR 7 DAYS active Not Available Not Available No t Available sevelamer HCl 800 mg tablet active Not Available Not Available Not Available dexamethaso ne 6 mg tablet active Not Available Not Available Not Available midodrine 5 mg tablet TAKE 1 TABLET BY MOUTH MID DIALYSIS TREATMENT NEEDED active Not Available Not Available No t Available Argelia-Kelsy Rx 1 mg-60 mg-300 mcg tablet TAKE 1 TABLET BY MOUTH DAILY active Not Available Not Available No t Available atenolol 25 mg tablet Take 1 tablet every day by oral route. 2012 active Not Available Not Available Not Avai lable metronidazo le 500 mg tablet TAKE 1 TABLET BY MOUTH AT 7PM AND 11PM THE NIGHT BEFORE YOUR SURGERY active Not Available Not Available No t Available clopidogrel 75 mg tablet TAKE 1 TABLET BY MOUTH EVERY DAY active Not Available Not Available No t Available allopurinol 100 mg tablet TAKE 1 TABLET BY MOUTH DAILY active Not Available Not Available No t Available tramadol 50 mg tablet TAKE 1 TABLET BY MOUTH TWICE DAILY NEEDED active Not Available Not Available No t Available triamcinolo ne acetonide 0.1 % topical cream active Not Available Not Available Not Available prednisone 10 mg tablets in a dose pack Take 1 tab by mouth, 3 times a day for 3 daysTake 1 tab by mouth 2 times a day for 2 daysTake 1 tab by mouth once a day for 1 day active Not Available Not Available No t Available meloxicam 7.5 mg tablet TAKE 1 TABLET BY MOUTH EVERY DAY NEEDED WITH PAIN active Not Available Not Available No t Available citalopram 20 mg tablet Take 1 tablet every day by oral route. active Not Available Not Available No t Available magnesium oxide 400 mg (241.3 mg magnesium) tablet TAKE 1 TABLET BY MOUTH TWICE DAILY active Not Available Not Available No t Available Kenalog 10 mg/mL suspension for injection Take 10 mg by injection route. 2022 active [facility]: [phone] Not Available Not Available Not Available amlodipine 10 mg tablet Take 1 tablet every day by oral route. 2012 active Not Available Not Available Not Avai lable cephalexin 500 mg capsule TAKE 1 CAPSULE BY MOUTH TWICE DAILY UNTIL ALL TAKEN active Not Available Not Available No t Available pantoprazol e 40 mg tablet,hossein yed release TAKE 1 TABLET BY MOUTH DAILY active Not Available Not Available No t Available lidocaine 5 % topical patch active Not Available Not Available Not Available gabapentin 300 mg capsule TAKE 1 CAPSULE BY MOUTH THREE TIMES DAILY NEEDED active Not Available Not Available No t Available omeprazole 20 mg capsule,del ayed release TAKE 1 CAPSULE BY MOUTH EVERY DAY IN THE MORNING active Not Available Not Available No t Available diclofenac sodium 75 mg tablet,hossein yed release TAKE 1 TABLET BY MOUTH TWICE DAILY active Not Available Not Available No t Available methylpredn isolone 4 mg tablets in a dose pack FOLLOW PACKAGE DIRECTION S active Not Available Not Available No t Available albuterol sulfate HFA 90 mcg/actuati on aerosol inhaler INHALE 2 PUFFS BY MOUTH TWICE DAILY active Not Available Not Available No t Available colchicine 0.6 mg tablet TAKE 1 TABLET BY MOUTH DAILY FOR 14 DAYS active Not Available Not Available No t Available calcitriol 0.25 mcg capsule Take 1 capsule every day by oral route. 2012 active Not Available Not Available Not Avai lable naproxen 500 mg tablet active Not Available Not Available Not Available midodrine 10 mg tablet TAKE 1 TABLET BY MOUTH TWICE DAILY active Not Available Not Available No t Available escitalopra m 10 mg tablet TAKE 1 TABLET BY MOUTH EVERY DAY DIRECTED active Not Available Not Available No t Available Alcohol Prep Pads USE DIRECTED active Not Available Not Available No t Available Lexapro 5 mg tablet Take 1 tablet every day by oral route. 2012 active Not Available Not Available Not Avai lable metoprolol tartrate 25 mg tablet TAKE 1/2 TABLET BY MOUTH TWICE DAILY active Not Available Not Available No t Available Argelia-Kelsy 0.8 mg tablet TAKE 1 TABLET BY MOUTH EVERY DAY active Not Available Not Available No t Available nitrofurant oin monohydrate /macrocryst als 100 mg capsule TAKE 1 CAPSULE BY MOUTH EVERY 12 HOURS FOR 7 DAYS active Not Available Not Available No t Available duloxetine 30 mg capsule,del ayed release TAKE 1 CAPSULE BY MOUTH EVERY DAY DIRECTED FOR MOOD active Not Available Not Available No t Available lisinopril 40 mg daily 2012 active Not Available Not Available Not Avai lable glimepiride 1 mg daily 2012 active Not Available Not Available Not Avai lable lidocaine (PF) 10 mg/mL (1 %) injection solution In office injection administe red by the provider active [facility]: [phone] Not Available Not Available Not Available lidocaine (PF) 5 mg/mL (0.5 %) injection solution Take 30 mg by injection route. active Not Available Not Available No t Available sevelamer carbonate 800 mg tablet TAKE 4 TABLETS BY MOUTH THREE TIMES DAILY WITH MEALS AND 1 TABLET TWICE DAILY WITH SNACKS active Not Available Not Available No t Available Trilipix 135 mg daily 10/25 completed Not Available Not Available Not Available GaviLyte-G 236 gram-22.74 gram-6.74 gram-5.86 gram oral solution 10/25 completed Not Available Not Available Not Available sodium,pota ssium,mag sulfates 17.5 gram-3.13 gram-1.6 gram oral soln MIX 1 BOTTLE AND DRINK AT 6PM THE DAY BEFORE TEST THEN DRINK THE 2ND BOTTLE 4 HOURS BEFORE ARRIVAL active Not Available Not Available No t Available ropivacaine (PF) 5 mg/mL (0.5 %) injection solution Take 10 mg by injection route. 2022 active Not Available Not Available Not Avai lable OneTouch Verio test strips TEST UP TO 4 TIMES PER DAY DIRECTED active Not Available Not Available No t Available Stimulant Laxative Plus 8.6 mg-50 mg tablet TAKE 2 TABLETS BY MOUTH NIGHTLY NEEDED FOR CONSTIPAT ION active Not Available Not Available No t Available Virt-Caps 1 mg capsule TAKE 1 CAPSULE BY MOUTH DAILY active Not Available Not Available No t Available Trulicity 0.75 mg/0.5 mL subcutaneou s pen injector INJECT 0.75 MG SUBCUTANE OUSLY WEEKLY active Not Available Not Available No t Available Trelegy Ellipta 100 mcg-62.5 mcg-25 mcg powder for inhalation INHALE 1 PUFF BY MOUTH EVERY DAY DIRECTED active Not Available Not Available No t Available OneTouch Delica Plus Lancet 33 gauge USE UP TO 4 TIMES PER DAY DIRECTED active Not Available Not Available No t Available Vitals Date Recorded Body height Body mass index (BMI) Body weight Provider Name and Address Organization Details Last Updated DateTime 10/17/2022 142.24 cm 46 kg/m2 21422.44 g Kerri Conde CNA MS [employer] [facility] 10/17/2022 09:28:15 Date Recorded Body mass index (BMI) Body height Body weight Provider Name and Address Organization Details Last Updated DateTime 10/25/2021 51.6 kg/m2 142.24 cm 933410.25 g Not Available [facility] includes the [facility] 08/07/2022 09:12:59 Date Recorded Body height Body mass index (BMI) Body weight Oxygen saturation Oxygen saturation in Arterial blood by Pulse oximetry Body temperature Heart rate Systolic blood pressure Diastolic blood pressure Provider Name and Address Organization Details Last Updated DateTime 142.24 cm 46 kg/m2 93029.4 4 g 97 % 97 % 97.3 [degF] 90 /min 162 mm[Hg] 82 mm[Hg] HERRERA Jacinto MS [employer] [facility] [employer] [facility] 11:45:02 Date Recorded Body mass index (BMI) Body height Body weight Provider Name and Address Organization Details Last Updated DateTime 11/22/2021 52.7 kg/m2 142.24 cm 353929.21 g Not Available Count includes the [facility] 08/07/2022 09:13:00 Date Recorded Body mass index (BMI) Body height Body weight Provider Name and Address Organization Details Last Updated DateTime 12/04/2021 52.7 kg/m2 142.24 cm 218703.21 g Not Available Count includes the [facility] 08/07/2022 09:13:00 Social History Question Answer Notes LastModified by [facility] Details LastModified Time Tobacco Smoking Status Former Smoker Not Available Count includes the [facility] 08/07/2022 09:12:32 What Was The Date Of Your Most Recent Tobacco Screening? 10/30/2023 [email or web address] Information not available 10/30/2023 Sex: Unknown Functional Status Question Answer Note LastModified by [employer] Details LastModified Time What is your occupation? disabled [id number] Information not available 08/07/2022 Mental Status None recorded. Family History Relationship Description Onset Age of this Age Resolved Age Notes LastModified by Organization Details LastModified Time Unspecified Relation Family history of malignant neoplasm [id number] Not available 08/07/2022 09:12:45 Unspecified Relation Hypertensive disorder [id number] Not available 08/07/2022 09:12:45 Unspecified Relation Diabetes mellitus [id number] Not available 08/07/2022 09:12:45 Unspecified Relation Kidney disease [id number] Not available 08/07/2022 09:12:45 Medical History Condition Response ARTHRITIS Y DIABETES, TYPE Y COPD Y GOUT Y Gynecological HistoryNo gynecological history recorded. Obstetrics History GPAL:G 0 P 0 0 0 0 Immunizations Vaccine Type Date Status Note Provider Nam e and Address Organization Details Recorded Time Influenza, split virus, quadrivalent, PF 03/09/2013 completed Not Available Count includes the [facility] 09:21:30 Past Encounters Encounter ID Performer Location Encounter Start Date Encounter Closed Date Diagnosis/Indication Diagnosis SNOMED-CT Code Diagnosis ICD10 Code Diagnosis Note [id number] Lorna Bauer MD [facility] [place] [address] [place] [id number] 10/25/2021 00:00:00 10/25/2021 11:34:45 [id number] Lorna Bauer MD [facility] [place] [address] [place] [id number] 11/22/2021 00:00:00 11/22/2021 10:41:11 [id number] Lorna Bauer MD [facility] [place] [address] [place] [id number] 12/04/2021 00:00:00 12/04/2021 14:50:11 [id number] Lorna Bauer MD [facility] [place] [address] [place] [id number] 10/17/2022 09:24:42 10/17/2022 10:07:04 Pain in left sacroiliac joint 7411190751 9198260 M53.3 Pain of le ft hip joint 6314277253 80157 M25.552 Trochanter ic bursitis of left hip 2256792597 17485 M70.62 Pain of left hand 194507 5615 49453 M79.642 Osteoarthr osis of the carpometacarpal joint of the thumb 07045227 M18.9 M18.12 Bilateral osteoarthritis of knees 1881956915 19069 M17.0 Morbid obesity 633032108 E66.01 [id number] Lisandro Omer DPM [facility] [place] [address] [address] 10/30/2023 11:12:02 10/30/2023 12:28:21 Foreign body of foot 932559638 S99.821A Health Concerns Section Related Observation LastModified by Organization Detai ls LastModified Time None Recorded Concern Status LastModified by Organization Details LastModified Time None Recorded Advance Directives Directive None Recorded Payers Encounter Date Sequence Insurance Name Policy Number Policy Hodgson Covered Member ID Hodgson Member ID Guarantor Name 10/17/2022 2 [place] WHEN MED[place]ARE OR MEDICARE REPLACEMENT PRIMARY) Jarred S Dam [id number] Jarred S Dahmm 10/17/2022 1 [facility] (MEDICARE REPLACEMENT/AD VANTAGE - PPO) [id number] Jarred S Dahmm [id number] Jarred S Dahmm 10/30/2023 2 [place]ARE OR MEDICARE REPLACEMENT PRIMARY) Jarred S Dahmm [id number] Jarred S Dahmm 10/30/2023 1 [facility] (MEDICARE REPLACEMENT/AD VANTAGE - PPO) [id number] Jarred Campbell [facility] [id number] Jarred Campbell [facility] Notes Date Note Type Note Provider Name and Address Organization Details Recorded Time 10/25/2021 text/html Hip(s)Reported bypatient.Location :left; lateral Quality:throbbing; superficial; frequent Severity:moderate Duration:continuou s since onset Timing:occasional Context:overuse Alleviating Factors:lying down; heat; ice; rest; exercise; limited weight bearing Aggravating Factors:standing; walking; bending/squatting Associated Symptoms:no numbness; no redness; no ecchymosis; no catching/locking; no popping/clicking; no buckling; no grinding; no instability; no radiation down leg; no drainage; no fever; no chills; no weight loss; no change in bowel/bladder habits;weakness;sw elling Not Available [facility] 10/25/2021 11:34:45 11/22/2021 text/html Hip(s)Reported bypatient.Location :left; lateral Quality:throbbing; superficial; frequent Severity:moderate Duration:continuou s since onset Timing:occasional Context:overuse Alleviating Factors:lying down; heat; ice; rest; exercise; limited weight bearing Aggravating Factors:standing; walking; bending/squatting Associated Symptoms:no numbness; no redness; no ecchymosis; no catching/locking; no popping/clicking; no buckling; no grinding; no instability; no radiation down leg; no drainage; no fever; no chills; no weight loss; no change in bowel/bladder habits;weakness;sw elling Not Available [facility] 11/22/2021 10:41:11 12/04/2021 text/html Back PainReporte d bypatient.Location :pain radiating to the buttocks Quality:dull Severity:worsening Duration:chronic Context:unusual activity; prior back problems Associated Symptoms:no fever; no weak limbs; no numbness of the legs/feet; no tingling; no incontinence; no shortness of breathHip(s)Report ed bypatient.Location :left; lateral Quality:throbbing; superficial; frequent Severity:moderate Duration:continuou s since onset Timing:occasional Context:overuse Alleviating Factors:lying down; heat; ice; rest; exercise; limited weight bearing Aggravating Factors:standing; walking; bending/squatting Associated Symptoms:no numbness; no redness; no ecchymosis; no catching/locking; no popping/clicking; no buckling; no grinding; no instability; no radiation down leg; no drainage; no fever; no chills; no weight loss; no change in bowel/bladder habits;weakness;sw elling Not Available BTR 12/04/2021 14:50:11 10/17/2022 text/html Patient returns main complaint today is that of wrist pain left. She is tender over the base of the thumb has pain to palpation and manipulation. She states it has been going on for months now she had some medical issues and so has not been able to get in till now. Secondary complaints of those of knee pain she has arthritis in both knees would like to consider knee replacement surgery at some point. Lorna Bauer MD [address], [place] [address], [place], [id number], BTR 10/17/2022 09:49:33 10/30/2023 text/html Pt RTC for c/o lesion on the rt heel, present, or noticeable for four d. Painful in shoes and during WB. Lisandro Omer DPM [address], [facility] [address], [place], [address], BTR 10/30/2023 12:01:22 OBGyn Episode No OBEpisode recorded.
--- OUTSIDE RECORDS SUMMARY | 2024-11-05 13:03 | XMS_ITS | CONTINUITY OF CARE DOCUMENT ---
Author Name shi osullivan Address Unknown Organization [facility] Address [address] [place] [address] Phone [phone] Care Team Providers Care Occupational Health Nurse Name Role Phone Theresa GREENE, Quentin Unavailable SHRUTHI YBARRA MD Unavailable SHRUTHI YBARRA MD Unavailable PROBLEMS Condition Status Date Provider Notes S/P (MRI Safe) Bio Loop active Anali acevedo HYPERLIPIDEMIA active Janevandana Fermin DIABETES active Janevandana Fermin OBESITY active Jane Fermin VENTRICULAR TACHYCARDIA active Jorge Luis negrete MD SVT S/P ablation 05/09/16 active Jorge Luis mae MD CHEST PAIN-02/19 NUC NEG EF 75 active ? 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 active Juan Alvarez MD SHORTNESS OF BREATH active Quentin Cardenas MD Family History of Hypertension: completed - Sa costa Alvarez MD Aortic stenosis active Jorge Luis Alvarez MD Palpitations active Jorge Luis Alvarez MD Hx of TOBACCO ABUSE active Jorge Luis de los santos MD Shortness of breath active Quentin Cardenas MD Edema - localized active Quentin Cardenas MD Snoring active Tr Akbar Hypotension active Quentin Cardenas MD Atrial Fibrillation active Quentin Cardenas MD Hx of SVT, paroxysmal active Quentin Cardenas MD COVID-19 asymptomatic, no ex posure, testing results unknown or negative screening active Juan A Pittman Sleep apnea active Quentin Cardenas MD Colon cancer active Juan A Pittman Vulvar cancer active Juan A Pittman ENCOUNTERS Date Type Provider Location Encounter Diag nosis - In-person encounter Office Visit Quentin Cardenas MD [facility] - In-person encounter Office Visit Quentin Cardenas MD [facility] - In-person encounter Office Visit Jorge Luis Alvarez MD [facility] - In-person encounter Office Visit Jorge Luis Alvarez MD [facility] Colon cancerVulvar cancer - In-person encounter Office Visit Quentin Cardenas MD [facility] [place] [facility] - In-person encounter Office Visit Quentin Cardenas MD [facility] Sleep apnea - In-person encounter Office Visit Quentin Cardenas MD [facility] - In-person encounter Office Visit Quentin Cardenas MD [facility] - In-person encounter Office Visit Quentin Cardenas MD [facility] - In-person encounter Office Visit Quentin Cardenas MD [facility] - In-person encounter Office Visit Jorge Luis Alvarez MD [facility] COVID-19 asymptomatic, no exposure, testing results unknown or negative screening - In-person encounter Office Visit Quentin Cardenas MD [facility] Hx of SVT, paroxysmal - In-person encounter Office Visit Quentin Cardenas MD [facility] Office - In-person encounter Office Visit Quentin Cardenas MD [facility] HypotensionAtrial Fibrillation - In-person encounter Office Visit Quentin Cardenas MD [facility] - In-person encounter Office Visit Quentin Cardenas MD [facility] [place] [facility] - In-person encounter Office Visit Jorge Luis Alvarez MD [facility] - In-person encounter Office Visit Jorge Luis Alvarez MD [facility] Snoring - In-person encounter Office Visit Quentin Cardenas MD [facility] - In-person encounter Office Visit Quentin Cardenas MD [facility] - In-person encounter Office Visit Quentin Cardenas MD [facility] - In-person encounter Office Visit Quentin Cardenas MD [facility] [place] [facility] Shortness of breathEdema - localized - In-person encounter Office Visit Quentin Cardenas MD [facility] - In-person encounter Office Visit Quentin Cardenas MD [facility] - In-person encounter Office Visit Jorge Luis Alvarez MD [facility] - In-person encounter Office Visit Jorge Luis Alvarez MD [facility] SVT S/P ablation 05/09/16 - In-person encounter Office Visit Jorge Luis Alvarez MD [facility] VENTRICULAR TACHYCARDIACKD stage ESRD on dialysisFamily History of Hypertension:Aortic stenosisPalpitationsHx of TOBACCO ABUSE - In-person encounter Office Visit Quentin Cardenas MD [facility] - In-person encounter Office Visit Quentin Cardenas MD [facility] - In-person encounter Office Visit Quentin Cardenas MD [facility] - In-person encounter Office Visit Quentin Cardenas MD [facility] - In-person encounter Office Visit Quentin Cardenas MD [facility] [place] [facility] - In-person encounter Office Visit Quentin Cardenas MD [facility] - In-person encounter Office Visit Quentin Cardenas MD [facility] CKD stage ESRD on dialysisSHORTNESS OF BREATH - In-person encounter Office Visit Quentin Cardenas MD [facility] CHEST PAIN-9/13 NUC NEG EF 75 - In-person encounter Office Visit Quentin Cardenas MD [facility] CHEST PAIN-9/13 NUC NEG EF 75 - In-person encounter Office Visit Quentin Cardenas MD [facility] CHEST PAIN-9/13 NUC NEG EF 75 - In-person encounter Office Visit Quentin Cardenas MD [facility] - In-person encounter Office Visit Quentin Cardenas MD [facility] - In-person encounter Office Visit Quentin Cardenas MD [facility] - In-person encounter Office Visit Quentin Cardenas MD [facility] - In-person encounter Office Visit Quentin Cardenas MD [facility] SVT S/P ablation 05/09/16 VITAL SIGNS Date Observation Value Provider Body Mass Index (Ratio) 47.82 kg/m2 Lazaro Cardenas MD blood pressure, diastolic 61 mm[Hg] Ally Velazquez blood pressure, systolic 129 mm[Hg] Hoa Velazquez oxygen saturation, oximetry 95 % Madalyn Velazquez pulse rate 95 /min Madalyn Velazquez respiratory rate E&M 14 /min Madalyn Velazquez weight E&M 221 [lb_av] Madalyn Velazquez height E&M 57 [in_i] Madalyn Velazquez blood pressure, cuff size regular An kvng Velazquez Body Mass Index (Ratio) 46.26 kg/m2 Lazaro Cardenas MD blood pressure, cuff size large Pol[place] Lucas blood pressure, diastolic 68 mm[Hg] Ta bitha Lucsa blood pressure, systolic 112 mm[Hg] Tab itha Lucas oxygen saturation, oximetry 98 % Karine Lucas pulse rate 85 /min Karine Lucas weight E&M 213.8 [lb_av] Karine Lucas respiratory rate E&M 12 /min Karine Arlington height E&M 57 [in_i] Karine Arlington Body Mass Index (Ratio) 47.60 kg/m2 Addy Alvarez MD blood pressure, cuff size large Ke rri Zulema blood pressure, diastolic 62 mm[Hg] Ke rri Walenetoby blood pressure, systolic 122 mm[Hg] Terell ri Suzanne oxygen saturation, oximetry 92 % Nicolle Suzanne respiratory rate E&M 12 /min Nicolle damianenetoby pulse rate 83 /min Nicolle Megan hairston weight E&M 220 [lb_av] Nicolle Megan hairston height E&M 57 [in_i] Nicolle Adrianuenenfkaushal [facility] Body Mass Index (Ratio) 47.17 kg/m2 Juan A Pittman blood pressure, diastolic -1 mm[Hg] Meagan nkLogic blood pressure, systolic 141 mm[Hg] Mary kLog blood pressure, diastolic 56 mm[Hg] Ja rret blood pressure, systolic 141 mm[Hg] Jar ret pulse rate 77 /min Truong blood pressure, cuff size large Ja rret oxygen saturation, oximetry 96 % respiratory rate E&M 14 /min weight E&M 218 [lb_av] height E&M 57 [in_i] [facility] Body Mass Index (Ratio) 37 kg/m2 Lazaro Cardenas MD blood pressure, cuff size large [facility], diastolic 50 mm[Hg] [facility], systolic 116 mm[Hg] Tab [facility] oxygen [facility], oximetry 93 % [facility] pulse rate 84 /min [facility] respiratory rate E&M 12 /min Karine Lucas weight E&M 171 [lb_av] [facility] height E&M 57 [in_i] [facility] Body Mass Index (Ratio) 46.52 kg/m2 Marian Partida blood pressure, cuff size large Ja rret blood pressure, diastolic 64 mm[Hg] Ja rret blood pressure, systolic 120 mm[Hg] Jar ret pulse rate 81 /min Truong oxygen saturation, oximetry 98 % respiratory rate E&M 16 /min Truong weight E&M 215 [lb_av] Troung y height E&M 57 [in_i] Truong y Body Mass Index (Ratio) 46.52 kg/m2 Lazaro Cardenas MD blood pressure, diastolic 66 mm[Hg] Meagan nkLogic blood pressure, systolic 122 mm[Hg] Mary kLogic pulse rate 79 /min Truong y blood pressure, cuff size large Ja rret blood pressure, diastolic 66 mm[Hg] Ja rret blood pressure, systolic 122 mm[Hg] Jar ret oxygen saturation, oximetry 99 % Truong respiratory rate E&M 12 /min Truong weight E&M 215 [lb_av] Truong y height E&M 57 [in_i] Truong y Body Mass Index (Ratio) 46.30 kg/m2 Marian trinity Partida blood pressure, cuff size large Ja rret blood pressure, diastolic 62 mm[Hg] Ja rret blood pressure, systolic 112 mm[Hg] Jar ret pulse rate 98 /min Truong respiratory rate E&M 16 /min Truong oxygen saturation, oximetry 97 % Truong weight E&M 214 [lb_av] Truong y height E&M 57 [in_i] Truong y Body Mass Index (Ratio) 43.92 kg/m2 Lazaro Cardenas MD blood pressure, cuff size large Ke rri Adrianuejuventino blood pressure, diastolic 60 mm[Hg] Ke rri Gruenenfelder blood pressure, systolic 110 mm[Hg] Ker ri Gruenenfelder oxygen saturation, oximetry 94 % Nicolle Gruenenfelder respiratory rate E&M 12 /min Nicolle G ruenenfelder pulse rate 85 /min Nicolle Gruenenfe lder weight E&M 203 [lb_av] Nicolle Gruenenfe lder height E&M 57 [in_i] Nicolle Gruenenfe er Body Mass Index (Ratio) 46.82 kg/m2 Lazaro Cardenas MD blood pressure, diastolic 55 mm[Hg] St jairo Tesfaye blood pressure, systolic 123 mm[Hg] Kathy Tesfaye oxygen saturation, oximetry 90 % Tara Tesfaye pulse rate 80 /min Tara Tesfaye weight E&M 216.4 [lb_av] Tara Tesfaye respiratory rate E&M 18 /min Tara rivera height E&M 57 [in_i] Tara Tesfaye Body Mass Index (Ratio) 49.55 kg/m2 Juan A Pittman blood pressure, cuff size large Ke rri Gruenenfeldnnamdi blood pressure, diastolic 180 mm[Hg] Ke rri Gruenenfeldnnamdi blood pressure, systolic 197 mm[Hg] Ker ri Gruenenfeldnnamdi oxygen saturation, oximetry 97 % Nicolle Gruenenfeldnnamdi respiratory rate E&M 18 /min Nicolle G natienenfelder pulse rate 86 /min Nicolle Gruenenfe lder weight E&M 229 [lb_av] Nicolle Gruenenfe lder height E&M 57 [in_i] Nicolle Gruenenfe lder Body Mass Index (Ratio) 50.20 kg/m2 Lazaro Cardenas MD blood pressure, cuff size large Ivanna espinoza [place] blood pressure, diastolic 90 mm[Hg] Ivanna espinoza [place] blood pressure, systolic 118 mm[Hg] Abrahan duong [place] oxygen saturation, oximetry 95 % Rose Cardona respiratory rate E&M 20 /min Chelsea kaushal [place] pulse rate 181 /min Rose Geovani chatterjee weight E&M 232 [lb_av] Rose Geovani chatterjee height E&M 57 [in_i] Rose chatterjee Body Mass Index (Ratio) 51.93 kg/m2 Lazaro Cardenas MD blood pressure, cuff size large Ke rri Walenetoby blood pressure, diastolic 74 mm[Hg] Ke rri Adrianuenenflin blood pressure, systolic 114 mm[Hg] Terell ri Suzanne oxygen saturation, oximetry 86 % Nicolle Suzanne respiratory rate E&M 16 /min Nicolle Satnam goodwin pulse rate 84 /min Nicolle Megan [facility] weight E&M 240 [lb_av] Nicolle Smitae [facility] height E&M 57 [in_i] Nicolle Gruenenfe [facility] Body Mass Index (Ratio) 51.67 kg/m2 Lazaro Cardenas MD blood pressure, diastolic 60 mm[Hg] Meagan nkLogic blood pressure, systolic 108 mm[Hg] Mary kLogdebbie blood pressure, diastolic 60 mm[Hg] Steffany Shabazz blood pressure, systolic 108 mm[Hg] Tammi Shabazz oxygen saturation, oximetry 99 % Jayesh Shabazz respiratory rate E&M 16 /min Yi Shabazz pulse rate 60 /min Jayesh altman weight E&M 238.8 [lb_av] Jayesh her height E&M 57 [in_i] Jayesh altman Body Mass Index (Ratio) 53.23 kg/m2 Lazaro Cardenas MD blood pressure, diastolic 53 mm[Hg] Cy robert Jaime blood pressure, systolic 92 mm[Hg] Danielle kwame Jaime blood pressure, cuff size regular Cy robert Jaime pulse rate 82 /min Magi Campbel l respiratory rate E&M 16 /min Magi Jaime oxygen saturation, oximetry 93 % Magi Jaime weight E&M 246 [lb_av] Amgi Campbel l height E&M 57 [in_i] Magi Campbel l Body Mass Index (Ratio) 52.80 kg/m2 Lazaro Cardenas MD blood pressure, cuff size regular Kr isty Acworth blood pressure, diastolic 70 mm[Hg] Kr isty Acworth blood pressure, systolic 124 mm[Hg] Bobi standrea Bharat respiratory rate E&M 18 /min Tana Bharat pulse rate 67 /min Tana Acworth oxygen saturation, oximetry 97 % Tana Bharat weight E&M 244 [lb_av] Tana Bharat height E&M 57 [in_i] Tana Acworth Body Mass Index (Ratio) 52.36 kg/m2 Scott Webber blood pressure, diastolic 70 mm[Hg] Ki simónsampson Diop blood pressure, systolic 100 mm[Hg] Leann peraltan Diop oxygen saturation, oximetry 96 % Jarret Diop respiratory rate E&M 18 /min Jarret Diop pulse rate 88 /min Nilwood Diop weight E&M 242 [lb_av] Jarret Diop height E&M 57 [in_i] Nilwood Diop Body Mass Index (Ratio) 52.15 kg/m2 Scott doran Akbar blood pressure, diastolic 74 mm[Hg] Da kena Terry blood pressure, systolic 128 mm[Hg] Dac ia Terry oxygen saturation, oximetry 98 % Adelita Terry respiratory rate E&M 18 /min Adelita V oss pulse rate 70 /min Adelita Terry weight E&M 241 [lb_av] Adelita Terry height E&M 57 [in_i] Adelita Terry Body Mass Index (Ratio) 52.58 kg/m2 Lazaro Cardenas MD blood pressure, diastolic 68 mm[Hg] Da kena Terry blood pressure, systolic 122 mm[Hg] Dac ia Terry oxygen saturation, oximetry 98 % Adelita Terry respiratory rate E&M 18 /min Adelita V oss pulse rate 65 /min Adelita Terry weight E&M 243 [lb_av] Adelita Terry height E&M 57 [in_i] Adelita Terry Body Mass Index (Ratio) 51.80 kg/m2 Lazaro Cardenas MD blood pressure, diastolic 68 mm[Hg] Steffany Shabazz blood pressure, systolic 140 mm[Hg] Tammi Shabazz oxygen saturation, oximetry 90 % Jayesh Shabazz respiratory rate E&M 20 /min Yi Shabazz pulse rate 87 /min Jayesh altman weight E&M 239.4 [lb_av] Jayesh her height E&M 57 [in_i] Jayesh Marie dianelysafrica Body Mass Index (Ratio) 52.84 kg/m2 Lazaro Cardenas MD blood pressure, diastolic 39 mm[Hg] Steffany Shabazz blood pressure, systolic 96 mm[Hg] Tammi Shabazz oxygen saturation, oximetry 91 % Jayesh Shabazz respiratory rate E&M 20 /min AnaliOlga Murphyenson pulse rate 69 /min Jayesh Marie dianelysafrica weight E&M 244.2 [lb_av] Jayesh Jeffrey parnellafrica height E&M 57 [in_i] Jayesh Marie anupama Body Mass Index (Ratio) 52.36 kg/m2 Lazaro Cardenas MD blood pressure, cuff size large Te dianna Patricia blood pressure, diastolic 68 mm[Hg] Te dianna Patricia blood pressure, systolic 116 mm[Hg] Ten vani Patricia oxygen saturation, oximetry 96 % Deysi Patricia respiratory rate E&M 18 /min Deysi Patricia pulse rate 67 /min Deysi Patricia weight E&M 242 [lb_av] Deysi Patricia Body Mass Index (Ratio) 53.36 kg/m2 Lazaro Cardenas MD blood pressure, diastolic 55 mm[Hg] Steffany Shabazz blood pressure, systolic 106 mm[Hg] Tammi Shabazz oxygen saturation, oximetry 95 % Jayesh Shabazz respiratory rate E&M 20 /min Yi Shabazz pulse rate 60 /min Jayesh Marie dianelysafrica weight E&M 246.6 [lb_av] Jayesh parnellafrica height E&M 57 [in_i] Jayesh Marie anupama Body Mass Index (Ratio) 54.96 kg/m2 Lazaro Cardenas MD blood pressure, cuff size large Nicol Swenson blood pressure, diastolic 62 mm[Hg] Nicol Swenson blood pressure, systolic 122 mm[Hg] Lauryn Swenson oxygen saturation, oximetry 96 % Denise Swenson respiratory rate E&M 16 /min Denise Swenson pulse rate 75 /min Denise Swenson weight E&M 254 [lb_av] Denise Swenson height E&M 57 [in_i] Denise Swenson Body Mass Index (Ratio) 52.80 kg/m2 Misael Poe blood pressure, cuff size large Ke rri Suzanne blood pressure, diastolic 54 mm[Hg] Ke rri Suzanne blood pressure, systolic 110 mm[Hg] Terell ri Suzanne oxygen saturation, oximetry 95 % Nicolle Palacios respiratory rate E&M 16 /min Nicolle Satnam goodwin pulse rate 86 /min Nicolle santiago weight E&M 244 [lb_av] Nicolle hairston height E&M 57 [in_i] Nicolle Megan hairston Body Mass Index (Ratio) 52.36 kg/m2 Misael Poe blood pressure, resting Yes Addy Alvarez MD blood pressure, cuff size regular Ke rri Suzanne blood pressure, diastolic 66 mm[Hg] Ke rri Gruejuventino blood pressure, systolic 125 mm[Hg] Terell ri Suzanne oxygen saturation, oximetry 95 % Nicolle Suzanne respiratory rate E&M 18 /min Nicolle G christa pulse rate 84 /min Nicolle Guzman weight E&M 242 [lb_av] Nicolle Guzman height E&M 57 [in_i] Nicolle Guzman [facility] blood pressure, diastolic 59 mm[Hg] Me roy Márquez blood pressure, systolic 133 mm[Hg] Amelia stewart Márquez pulse rate 82 /min Margot Márquez oxygen saturation, oximetry 95 % Margot Márquez respiratory rate E&M 16 /min Margot Márquez Body Mass Index (Ratio) 52.80 kg/m2 Leticia leon Márquez weight E&M 244 [lb_av] Margot Márquez blood pressure, diastolic 60 mm[Hg] Bob Ringby blood pressure, systolic 120 mm[Hg] Alessandro Ringby pulse rate 93 /min Tana Ringby oxygen saturation, oximetry 96 % Tana Ringby respiratory rate E&M 19 /min Tana Acworth Body Mass Index (Ratio) 53.27 kg/m2 Jack Nicholson weight E&M 246.2 [lb_av] Tana Ringby blood pressure, diastolic 61 mm[Hg] Bob Ringby blood pressure, systolic 120 mm[Hg] Alessandro Ringby pulse rate 96 /min Tana Acworth oxygen saturation, oximetry 93 % Tana Bharat respiratory rate E&M 19 /min Tana Acworth Body Mass Index (Ratio) 53.27 kg/m2 Jack ty Bharat weight E&M 246.2 [lb_av] Tana Acworth blood pressure, diastolic 63 mm[Hg] Steffany Shabazz blood pressure, systolic 117 mm[Hg] Tammi Shabazz pulse rate 82 /min Jayesh altman oxygen saturation, oximetry 96 % Jayesh Shabazz respiratory rate E&M 16 /min Yi Shabazz Body Mass Index (Ratio) 52.88 kg/m2 Anali Shabazz weight E&M 244.4 [lb_av] Jayesh her Body Mass Index (Ratio) 51.93 kg/m2 Oliveira i Suzanne blood pressure, diastolic 60 mm[Hg] Ke rri Suzanne blood pressure, systolic 102 mm[Hg] Ker ri Suzanne pulse rate 69 /min Nicolle Megan santiago oxygen saturation, oximetry 95 % Nicolle Palacios respiratory rate E&M 16 /min Nicolle goodwin weight E&M 240 [lb_av] Nicolle santiago Body Mass Index (Ratio) 53.23 kg/m2 Blel dipti Cartwright blood pressure, diastolic 70 mm[Hg] Ta leslye Cartwright blood pressure, systolic 124 mm[Hg] Garrison johnson Chay pulse rate 74 /min Heather Chay oxygen saturation, oximetry 93 % Heather Chay respiratory rate E&M 17 /min Heather Cartwright weight E&M 246 [lb_av] Heather Cartwright Body Mass Index (Ratio) 57.77 kg/m2 Anea vaibhav Deniz blood pressure, diastolic 62 mm[Hg] An eatris Deniz blood pressure, systolic 115 mm[Hg] Ane atris Deniz pulse rate 62 /min Aneatris Deniz oxygen saturation, oximetry 90 % Aneatris Deniz respiratory rate E&M 16 /min Aneatri s Deniz weight E&M 267 [lb_av] Aneatris Deniz Body Mass Index (Ratio) 59.94 kg/m2 Cat lie Mercado blood pressure, curry tolic, second observation 69 mm[Hg] Nany Mercado blood pressure, syst olic, second observation 129 mm[Hg] Nany Mercado blood pressure, diastolic 69 mm[Hg] Na promise Mercado blood pressure, systolic 129 mm[Hg] Sydney Mercado pulse rate 61 /min Nany Mercado oxygen saturation, oximetry 95 % Nany Mercado respiratory rate E&M 18 /min Nany Bunchoney weight E&M 276 [lb_av] Nany Rogelio blood pressure, diastolic 61 mm[Hg] Oliver Estrada RN blood pressure, systolic 129 mm[Hg] Oskar Estrada RN pulse rate 77 /min Oskar Estrada RN oxygen saturation, oximetry 92 % Oskar Estrada RN respiratory rate E&M 18 /min Oskar baldwin RN Body Mass Index (Ratio) 61.11 kg/m2 Oskar Estrada RN weight E&M 281.4 [lb_av] Oskar Estrada RN blood pressure, diastolic 57 mm[Hg] Oliver Estrada RN blood pressure, systolic 102 mm[Hg] Oskar Estrada RN pulse rate 63 /min Oskar Estrada RN oxygen saturation, oximetry 94 % Oskar Estrada RN respiratory rate E&M 16 /min Oskar baldwin RN Body Mass Index (Ratio) 60.81 kg/m2 Oskar Estrada RN weight E&M 280 [lb_av] Oskar Estrada RN blood pressure, diastolic 68 mm[Hg] Oliver Estrada RN blood pressure, systolic 108 mm[Hg] Oskar Estrada RN pulse rate 66 /min Oskar Estrada RN oxygen saturation, oximetry 98 % Oskar Estrada RN respiratory rate E&M 20 /min Oskar reddmagali GUY Body Mass Index (Ratio) 60.59 kg/m2 Oskar Estrada RN weight E&M 279 [lb_av] Oskar Estrada RN height E&M 57 [in_i] Oskar Estrada RN blood pressure, diastolic 64 mm[Hg] Destini malcolm [place] blood pressure, systolic 116 mm[Hg] Claude stroud [place] pulse rate 62 /min Ron [place] oxygen saturation, oximetry 84 % Ron [place] respiratory rate E&M 20 /min Ron [place] weight E&M 279 [lb_av] Ron [place] blood pressure, diastolic 71 mm[Hg] [place] blood pressure, systolic 131 mm[Hg] Guillermo Schultz pulse rate 60 /min Alison Schultz oxygen saturation, oximetry 87 % Alison Schultz respiratory rate E&M 20 /min Alison Schultz weight E&M 288 [lb_av] lAison Schultz blood pressure, diastolic 69 mm[Hg] [place] blood pressure, systolic 138 mm[Hg] Guillermo Schultz pulse rate 63 /min Alison Schultz oxygen saturation, oximetry 89 % Alison Schultz respiratory rate E&M 18 /min Alison Schultz weight E&M 279 [lb_av] Alison Schultz blood pressure, diastolic, right arm 78 m m[Hg] Samantha Valerio blood pressure, systolic, right arm 166 m m[Hg] Samantha Valerio blood pressure, diastolic 78 mm[Hg] Dipti Valerio blood pressure, systolic 133 mm[Hg] Yan Valerio pulse rate 65 /min Samantha Valerio oxygen saturation, oximetry 98 % Samantha Valerio respiratory rate E&M 20 /min Samantha Acevedo ckermann weight E&M 257.5 [lb_av] Samantha Kitchen n blood pressure, diastolic 82 mm[Hg] Destini seph [place] blood pressure, systolic 145 mm[Hg] Claude eph [place] weight E&M 276.31 [lb_av] Ron Manaco p pulse rate 68 /min Ron [place] oxygen saturation, oximetry 91 % Ron [place] respiratory rate E&M 20 /min Ron [place] ALLERGIES Allergy Name Onset Date Reaction Criticality Status VICODIN Low Criticality active CIPRO Low Criticality active PCN Low Criticality active RESULTS Date Observation Value Provider Reference Range Interpretation Location Estimated Glomerular Filtration Rate (calc) 8 mL/min/{1. 73_m2} Link[facility] >=60 Low C, [place] [address] calcium, serum 9.5 mg/dL [facility] 8.5-10.3 Normal C, [place] [address] blood glucose, random 100 mg/dL [facility] 70-199 Normal C, [place] [address] creatine, serum 5.66 mg/dL [facility] 0.60-1.10 High C, [place] [address] urea nitrogen, blood 22 mg/dL [facility] 6-25 Normal C, [place] [address] anion gap, serum 13 mmol/L [facility] 2-15 Normal C, [place] [address] carbon dioxide, venous blood 33 mmol/L [facility] 22-32 High C, [place] [address] chloride, serum 97 mmol/L [facility] 97-110 Normal C, [place] [address] potassium, serum 4.5 MMOL/L [facility] 3.3-4.9 Normal , [place] [address] sodium, serum 143 mmol/L [facility] 135-145 Normal C, [place] [address] Absolute Basophils 0.0 K/CUMM [facility] 0.0-0.1 Normal , [place] [address] Absolute Monocytes 0.7 K/CUMM [facility] 0.2-0.8 Normal , [place] [address] Absolute Lymphocytes 1.3 K/CUMM [facility] 0.8-3.3 Normal , [place] [address] Absolute Neutrophils 4.9 K/CUMM [facility] 1.5-6.5 Normal , [place] [address] nucleated red blood cells as percent of blood leukocytes 0.00 K/CUMM [facility] 0.00-0.01 Normal red blood cell distribution width, size density 54.8 fL [facility] 35.7-48.1 High mean corpuscular hemoglobin concentration, RBC 31.9 G/DL [facility] 32.3-35.7 Low mean corpuscular hemoglobin, RBC 33.0 pg [facility] 27.1-33.3 Normal mean corpuscular volume, RBC 103.7 fL [facility] 81.3-96.4 High erythrocyte count, whole blood 3.27 M/CUMM [facility] 3.90-5.20 Low mean platelet volume 10.0 fL [facility] 9.1-12.3 Normal platelet count 183 10*3/uL [facility] 150-400 Normal hematocrit, blood 33.9 % [facility] 35.6-45.5 Low hemoglobin, blood 10.8 g/dL [facility] 11.9-15.5 Low Estimated Glomerular Filtration Rate (calc) 6 mL/min/{1. 73_m2} [facility] C, [place] [address] aspartate aminotransferase (SGOT), serum 22 1/L [facility] 10-45 Normal C, [place] [address] alanine aminotransferase (SGPT), serum 14 1/L [facility] 7-45 Normal C, [place] [address] Alkaline phosphatase 379 [facility] 40-130 High C, [place] [address] albumin, serum 4.3 g/dL [facility] 3.5-5.0 Normal C, [place] [address] protein, total, serum 7.6 g/dL [facility] 6.5-8.5 Normal C, [place] [address] bilirubin, serum, total 0.3 mg/dL [facility] 0.1-1.2 Normal C, [place] [address] calcium, serum 9.8 mg/dL [facility] 8.5-10.3 Normal C, [place] [address] blood glucose, random 81 mg/dL [facility] 70-199 Normal C, [place] [address] creatine, serum 6.96 mg/dL [facility] 0.60-1.10 High C, [place] [address] urea nitrogen, blood 44 mg/dL [facility] 6-25 High C, [place] [address] anion gap, serum 16 mmol/L [facility] 2-15 High C, [place] [address] carbon dioxide, venous blood 31 mmol/L [facility] 22-32 Normal C, [place] [address] chloride, serum 91 mmol/L [facility] 97-110 Low C, [place] [address] potassium, serum 4.6 MMOL/L [facility] 3.3-4.9 Normal C, [place] [address] sodium, serum 138 mmol/L [facility] 135-145 Normal C, [place] [address] activated partial thromboplastin time (aPTT) 27 s [facility] 28-38 Low C, [place] [address] international normalized ratio (INR) 0.95 [facility] 0.90-1.20 Normal C, [place] [address] prothrombin time (patient) 10.8 s [facility] 10.3-13.7 Normal C, [place] [address] Absolute Basophils 0.1 K/CUMM [facility] 0.0-0.1 Normal C, [place] [address] Absolute Monocytes 0.9 K/CUMM [facility] 0.2-0.8 High C, [place] [address] Absolute Lymphocytes 1.8 K/CUMM [facility] 0.8-3.3 Normal C, [place] [address] Absolute Neutrophils 6.0 K/CUMM [facility] 1.7-6.5 Normal , [place] [address] nucleated red blood cells as percent of blood leukocytes 0.00 K/CUMM [facility] 0.00-0.01 Normal red blood cell distribution width, size density 63.7 fL [facility] 35.7-48.1 High mean corpuscular hemoglobin concentration, RBC 32.0 G/DL [facility] 32.3-35.7 Low mean corpuscular hemoglobin, RBC 31.6 pg [facility] 27.1-33.3 Normal mean corpuscular volume, RBC 98.7 fL [facility] 81.3-96.4 High erythrocyte count, whole blood 3.86 M/CUMM [facility] 3.90-5.20 Low mean platelet volume 10.4 fL [facility] 9.1-12.3 Normal platelet count 237 10*3/uL [facility] 150-400 Normal hematocrit, blood 38.1 % [facility] 35.6-45.5 Normal hemoglobin, blood 12.2 g/dL [facility] 11.9-15.5 Normal coagulation managed by Oskar Estrada RN international normalized ratio (INR) 1.1 Adelita Terry Normal prothrombin time (patient) 13.8 s Adelita Terry coagulation managed by Oskar Estrada RN international normalized ratio (INR) 1.0 Adelita Terry Normal prothrombin time (patient) 11.9 s Adelita Terry urea nitrogen/creatinine ratio, serum 8.4 [facility] - Estimated Glomerular Filtration Rate (calc) 9.3 (?) [facility] 59.0 - Low chloride, serum 94.6 mmol/L [facility] 98.0 - 107.0 Low potassium, serum 4.4 mmol/L [facility] 3.5 - 5.1 sodium, serum 138.0 mmol/L [facility] 136.0 - 145.0 creatinine, serum 5.0 mg/dL [facility] 0.5 - 1.0 High carbon dioxide, venous blood 24.0 mmol/L [facility] 23.0 - 31.0 calcium, serum 9.7 mg/dL [facility] 8.6 - 10.2 urea nitrogen, blood 42.0 mg/dL [facility] 8.0 - 23.0 High blood glucose, random 117.0 mg/dL [facility] 74.0 - 99.0 High red blood cell distribution width, size density 55.1 fL [facility] - immature granulocytes, percentage of total cells, blood 0.4 % [facility] nucleated red blood cells as percent of blood leukocytes 0.0 % [facility] red blood cell (erythrocyte) count, per high power field 0.0 10*3/UL [facility] - eosinophils as percent of blood leukocytes 1.6 % [facility] - neutrophils as percent of blood leukocytes 67.1 % [facility] - Absolute Neutrophils 6.4 CELLS/UL [facility] 1.5 - 7.8 basophils as percent of blood leukocytes 0.5 % [facility] Basophils 0.1 CELLS/UL [facility] 0.0 - 0.2 monocytes as percent of blood leukocytes 7.7 % [facility] - Absolute Monocytes 0.7 CELLS/UL [facility] 0.2 - 1.0 lymphocytes as percent of blood leukocytes 22.7 % [facility] Absolute Lymphocytes 2.2 CELLS/UL [facility] 0.9 - 3.9 mean platelet volume 10.2 (?) [facility] platelet count 287.0 THOUSAND/U L [facility] 100.0 - 400.0 mean corpuscular hemoglobin concentration, RBC 31.0 G/DL [facility] 31.0 - 38.0 mean corpuscular hemoglobin, RBC 33.0 pg [facility] 25.0 - 35.0 mean corpuscular volume, RBC 106.2 fL [facility] 75.0 - 100.0 High hematocrit, blood 29.0 % [facility] 35.0 - 55.0 Low hemoglobin, blood 9.0 g/dL [facility] 11.5 - 16.5 Low erythrocyte count, whole blood 2.7 MILLION/UL [facility] 3.5 - 5.5 Low activated partial thromboplastin time 25.2 SECONDS [facility] - 33.0 platelet count 297 10*3/mm3 [facility] hematocrit, blood 40.5 % [facility] alanine aminotransferase (SGPT), serum 24 1/L [facility] aspartate aminotransferase (SGOT), serum 30 1/L [facility] creatinine, serum 2.35 mg/dL [facility] potassium, serum 4.1 mmol/L [facility] sodium, serum 145 mmol/L [facility] HISTORY OF MEDICATION USE Medication Status Instructions Dates Provider Indications Com ments atorvastatin 80 mg tablet active TAKE 1 TABLET BY MOUTH EVERY DAY Madalyn Velazquez Trulicity 1.5 mg/0.5 mL pen injector active Nancy Jameson NP pantoprazole 40 mg tablet,delayed release (DR/EC) completed - Nancy Jameson NP meloxicam 7.5 mg tablet completed Take 1 tablet by mouth once a day - Karine Lucas tramadol 50 mg tablet active BID PRN Nancy Jameson NP Tylenol Arthritis Pain 650 mg tablet extended release active 2 tabs TID. Nancy Jameson NP gabapentin 300 mg capsule active Take 1 capsule by mouth three times a day [facility] clopidogrel 75 mg tablet completed Take 1 tablet by mouth once a day - Nancy Jameson NP atorvastatin 80 mg tablet completed Take 1 tablet by mouth once a day - [facility] meloxicam 7.5 mg tablet completed Take 1 tablet by mouth once a day - Nancy Jameson NP sevelamer HCl 800 mg tablet active Take 1 tablet by mouth three times a day WITH MEALS AND WITH SNACKS Nancy Jameson NP aspirin 81 mg capsule active Take 1 capsule by mouth once a day [facility] Trelegy Ellipta 100-62.5-25 mcg blister with device active daily Nancy Jameson NP midodrine 10 mg tablet active TAKE 1 TABLET TWICE A DAY ON MON, WED, and FRI [facility] albuterol sulfate 90 mcg/actuation HFA aerosol inhaler active INHALE 2 PUFFS BY MOUTH TWICE DAILY Katlyn Marvin magnesium oxide 400 mg (241.3 mg magnesium) tablet completed TAKE 1 TABLET BY MOUTH TWICE DAILY - Eliquis 5 mg tablet completed Take 1 tablet by mouth twice a day samples given # 28 - Nicolle Palacios metoprolol tartrate 25 mg tablet completed TAKE 1/2 TABLET BY MOUTH TWICE DAILY - Nicolle Palacios metoprolol succinate 25 mg tablet extended release 24 hr completed 1/2 tablet once a day - Nicolle Palacios escitalopram oxalate 10 mg tablet completed Take 1 tablet by mouth once a day - Truong pantoprazole 40 mg tablet,delayed release (DR/EC) active Take 1 tablet by mouth once a day Jayesh Shabazz Sensipar 30 mg tablet active Take 1 tablet by mouth once a day Jayesh Murphyenson duloxetine 30 mg capsule,delayed release(DR/EC) active Take 1 tablet once a day Magi Jaime CINACALCET HCL 30 MG ORAL TABLET completed take one tablet by mouth once daily - Magi Jaime ACETAMINOPHEN 500 MG ORAL TABLET completed take one tablet by mouth twice daily - Magi Jaime omeprazole 20 mg capsule,delayed release(DR/EC) completed Take 1 capsule by mouth every morning - Tana Nicholson #90, 90 days supply, Prescribed by MARY ANN ANNE, Filled 11/19/2019 midodrine 5 mg tablet completed 2 tablet - Nicolle Palacios #180, 90 days supply, Prescribed by DALJIT GREEN, Filled 11/19/2019 meloxicam 7.5 mg tablet completed Take 1 tablet by mouth once a day as needed - Nicolle Palacios #90, 90 days supply, Prescribed by SHRUTHI YBARRA, Filled 11/19/2019 ESCITALOPRAM OXALATE 10 MG ORAL TABLET completed take one tablet by mouth once daily - Magi Jaime #30, 30 days supply, Prescribed by SHRUTHI YBARRA, Filled 11/19/2019 SENSIPAR 30 MG ORAL TABLET completed once daily - Adelita Stewart citalopram 10 mg tablet completed Take 1 tablet by mouth once a day - Joy Ventimiglia CAP MACHINE OPERATOR Renvela 800 mg tablet completed Take 1 tablet by mouth three times a day - Tana Nicholson metoprolol tartrate 25 mg tablet completed Take 0.5 tablet by mouth twice a day - Gloria Donahue COUMADIN 2.5 MG ORAL TABLET completed 2 tablet daily for 2 days - Nicolle Palacios Renal Caps 1 mg capsule active once a day Jayesh Shabazz MULTIVITAMINS ORAL CAPSULE completed take one pill a day - Jayesh Shabazz METOLAZONE 2.5 MG ORAL TABLET completed once daily - Heather Cartwright ALBUTEROL HFA entered-in- error 2 puffs bid - Aneatris Deniz Ventolin HFA 90 mcg/actuation HFA aerosol inhaler completed 2 puff twice a day - Katlyn Marvin allopurinol 100 mg tablet active 1 tablet once a day Jayesh Shabazz AMBIEN 10 MG ORAL TABLET completed 1 tab at bedtime as needed - Nany Mercado TRAMADOL HCL 50 MG ORAL TABLET completed - Aneatris Deniz BUMETANIDE 2 MG ORAL TABLET completed bid - Heather Cartwright ergocalciferol (vitamin D2) 1,250 mcg (50,000 unit) capsule completed once a week - Jayesh Shabazz CALCITRIOL 0.25 MCG ORAL CAPSULE completed daily - Nicolle Palacios AMLODIPINE BESYLATE 10 MG ORAL TABLET completed daily - Nicolle Palacios LOSARTAN POTASSIUM 50 MG ORAL TABLET completed daily - Nicolle Palacios CITALOPRAM HYDROBROMIDE 20 MG ORAL TABLET completed daily - Jayesh Shabazz GLIPIZIDE TABLET completed 20mg daily - Oskar Estrada RN METFORMIN HCL 500 MG ORAL TABLET completed 1 tablet by mouth daily - Oskar Estrada RN GLIMEPIRIDE 1 MG ORAL TABLET completed one tab daily - Nicolle Palacios LEXAPRO 10 MG ORAL TABLET completed ONE TAB. DAILY - Oskar Estrada RN LISINOPRIL 40 MG ORAL TABLET completed 1 tablet by mouth daily - Oskar Estrada RN TRILIPIX 135 MG ORAL CAPSULE DELAYED RELEASE completed 1 capsule by mouth daily - Aneatris Brown POTASSIUM CHLORIDE FILEMON ER 20 MEQ ORAL TABLET EXTENDED RELEASE completed ONE TAB. DAILY - Oskar Estrada RN LASIX 40 MG ORAL TABLET completed one tab daily - Oskar Estrada RN ASPIRIN 81 MG ORAL TABLET completed 1 tablet once a day - Nicolle Palacios NAPROXEN 500 MG ORAL TABLET completed 1 tablet by mouth daily - Samantha Valerio METFORMIN HCL 500 MG ORAL TABLET completed daily - Alison AMAYA LORATADINE TABS completed daily - Ron White ATENOLOL 25 MG ORAL TABLET completed daily - Heather Cartwright Lipitor 80 mg tablet active 1 tablet once a day Jayesh Shabazz TRICOR 145 MG ORAL TABLET completed 1 q hs - Ron White SOCIAL HISTORY Date Observation Value Provider personal history of marijuana use no Quentin Cardenas MD drug use no Quentin Chatterjee alcohol use, average drinks per day social Quentin Cardenas MD alcohol use yes Quentin Chatterjee passive cigarette sm josue exposure no Quentin Cardenas MD smoking, year quit 1997 Quentin giraldo MD number of years as a smoker 30 a Quentin Cardenas MD smoking history, tot al pack/year 60 Quentin Cardenas MD smoking history, tot al pack/day 2 Quentin Cardenas MD cigarette use yes Quentin Cardenas MD smoking status Former smoker Quentin barnett MD colon surgery, hx of Colon Surgery,Hx of Quentin Cardenas MD personal history of marijuana use no Ashleejackie Vasquesri SYSTEM TRAINER drug use no Ashleejackie Bonareri SYSTEM TRAINER alcohol use, average drinks per day social Ashleejackie Vasquesri SYSTEM TRAINER alcohol use yes Jean Bonareri SYSTEM TRAINER passive cigarette sm josue exposure no Jean Bonareri SYSTEM TRAINER smoking, year quit 1997 Jean Edgar areri SYSTEM TRAINER number of years as a smoker 30 a Jean Bonareri SYSTEM TRAINER smoking history, tot al pack/year 60 Jean Bonareri SYSTEM TRAINER smoking history, tot al pack/day 2 Jean Bonareri SYSTEM TRAINER cigarette use yes Jean Bonareri SYSTEM TRAINER smoking status Former smoker Jean Asifre ri SYSTEM TRAINER personal history of marijuana use no Nancy Jameson SYSTEM TRAINER drug use no Nancy Garnica r SYSTEM TRAINER alcohol use, average drinks per day social Nancy Garnicar SYSTEM TRAINER alcohol use yes Nancy Garnica r SYSTEM TRAINER passive cigarette sm josue exposure no Nancy Garnicar SYSTEM TRAINER smoking, year quit 1997 Nancy Jameson SYSTEM TRAINER number of years as a smoker 30 a Nancy Garnicar SYSTEM TRAINER smoking history, tot al pack/year 60 Nancy Garnicar SYSTEM TRAINER smoking history, tot al pack/day 2 Nancy Garnicar SYSTEM TRAINER cigarette use yes Nancy Johnson er SYSTEM TRAINER smoking status Former smoker Nancy Ly kelviner SYSTEM TRAINER Exercise counseling Yes Nancy Garnicar SYSTEM TRAINER personal history of marijuana use no Nancy Garnicar SYSTEM TRAINER drug use no Nancy Garnica r SYSTEM TRAINER alcohol use, average drinks per day social Nancy Garnicar SYSTEM TRAINER alcohol use yes Nancy Garnica r SYSTEM TRAINER passive cigarette sm josue exposure no Nancy Garnicar SYSTEM TRAINER smoking, year quit 1997 Nancy Garnicar SYSTEM TRAINER number of years as a smoker 30 a Nancy Garnicar SYSTEM TRAINER smoking history, tot al pack/year 60 Nancy Garnicar SYSTEM TRAINER smoking history, tot al pack/day 2 Nancy Garnicar SYSTEM TRAINER cigarette use yes Nancy Lykelvin er SYSTEM TRAINER smoking status Former smoker Nancy Ly kelviner SYSTEM TRAINER personal history of marijuana use no Joy Ventimiglia [facility] alcohol use, average drinks per day social Joy Ventimiglia [facility] drug use no Joy Ventimig tian [facility] alcohol use yes Joy Ventimig tian [facility] passive cigarette sm josue exposure no Joy Ventimiglia [facility] smoking, year quit 1997 Joy Ve ntimiglia [facility] number of years as a smoker 30 a Joy Ventimiglia [facility] smoking history, tot al pack/year 60 Joy Ventimiglia [facility] smoking history, tot al pack/day 2 Joy Ventimiglia [facility] cigarette use yes Joy Ventimi glia [facility] smoking status Former smoker Joy Venti miglia CAP MACHINE OPERATOR drug use no Quentin Chatterjee alcohol use, average drinks per day social Quentin Cardenas MD alcohol use yes Quentin Chatterjee passive cigarette sm josue exposure no Quentin Cardenas MD smoking, year quit 1997 Quentin giraldo MD number of years as a smoker 30 a Quentin Cardenas MD smoking history, tot al pack/year 60 Quentin Cardenas MD smoking history, tot al pack/day 2 Quentin Cardenas MD cigarette use yes Quentin Cardenas MD smoking status Former smoker Quentin barnett MD drug use no Nancy Garnica r [facility] alcohol use, average drinks per day social Nancy Jameson NP alcohol use yes Nancy Garnica r [facility] passive cigarette sm josue exposure no Nancy Garnicar [facility] smoking, year quit 1997 Nancy Jameson SYSTEM TRAINER number of years as a smoker 30 a Nancy Jameson NP smoking history, tot al pack/year 60 Nancy Jameson NP smoking history, tot al pack/day 2 Nancy Jameson SYSTEM TRAINER cigarette use yes Nancy coto SYSTEM TRAINER smoking status Former smoker Nancy prado SYSTEM TRAINER Exercise counseling Yes Nancy Jameson NP drug use no Joy Ventimig tian CAP MACHINE OPERATOR alcohol use, average drinks per day social Joy Ventimiglia CAP MACHINE OPERATOR alcohol use yes Joy Ventimig tian CAP MACHINE OPERATOR smoking status Former smoker Joy Venti miglia [facility] social history reviewed E&M revi ewed - no changes required Quentin Cardenas MD social history E&M Marital Statu s: Single L lashanda with family/friends J ob Status: Disabled Smoking History: P owen is a former smoker. Quentin Cardenas MD social history reviewed E&M revi ewed - no changes required Quentin Cardenas MD seatbelt usage 100 % Taraanirudh Tesfaye physical exercise, frequency, days per week no Taraanirudh Tesfaye caffeine use, averag e drinks per day no Taraanirudh Tesfaye passive cigarette sm josue exposure no Taraanirudh Tesfaye smoking, year quit 1997 Tara islas number of years as a smoker 30 a Tara Brien smoking history, tot al pack/year 60 Taraanirudh Tesfaye smoking history, tot al pack/day 2 Tara Tesfaye cigarette use yes Tara Tesfaye smoking status Former smoker Tara Tesfaye seatbelt usage 100 % Nicolle mosley physical exercise, frequency, days per week no Nicolle Palacios caffeine use, averag e drinks per day no Nicolle Palacios passive cigarette sm josue exposure no Nicolle Palacios smoking, year quit 1997 Nicolle lakhani number of years as a smoker 30 a Nicolle Palacios smoking history, tot al pack/year 60 Nicolle Palacios smoking history, tot al pack/day 2 Nicolle Palacios cigarette use yes Nicolle ceballos smoking status Former smoker Nicolle luis social history E&M Marital Statu s: Single L lashanda with family/friends J ob Status: Disabled Smoking History: P owen is a former smoker. Quentin Cardenas MD social history reviewed E&M revi ewed - no changes required Quentin Cardenas MD seatbelt usage 100 % Rose Ambrocio physical exercise, frequency, days per week no Rose Cardona caffeine use, averag e drinks per day no Rose Cardona passive cigarette sm josue exposure no Rose Cardona smoking, year quit 1997 Rose Cardona number of years as a smoker 30 a Rose Cardona smoking history, tot al pack/year 60 Rose Cardona smoking history, tot al pack/day 2 Rose Cardona cigarette use yes Rose Lopez malika smoking status Former smoker Rose alvarado social history E&M Marital Statu s: Single L lashanda with family/friends J ob Status: Disabled Smoking History: P owen is a former smoker. Quentin Cardenas MD social history reviewed E&M revi ewed - no changes required Quentin Cardenas MD seatbelt usage 100 % Nicolle mosley physical exercise, frequency, days per week no Nicolle Palacios caffeine use, averag e drinks per day no Nicolle Palacios passive cigarette sm josue exposure no Nicolle Palacios smoking, year quit 1997 Nicolle lakhani number of years as a smoker 30 a Nicolle Palacios smoking history, tot al pack/year 60 Nicolle Palacios smoking history, tot al pack/day 2 Nicolle Palacios cigarette use yes Nicolle ceballos smoking status Former smoker Nicolle luis social history E&M Marital Statu s: Single L lashanda with family/friends J ob Status: Disabled Smoking History: P atient is a former smoker. Quentin Cardenas MD social history reviewed E&M revi ewed - no changes required Quentin Cardenas MD seatbelt usage 100 % Jayesh Heaton physical exercise, frequency, days per week no Jayesh Shabazz caffeine use, averag e drinks per day no Jayesh Shabazz passive cigarette sm josue exposure no Jayesh Shabazz smoking, year quit 1997 Jayesh Shabazz number of years as a smoker 30 a Jayesh Shabazz smoking history, tot al pack/year 60 Jayesh Shabazz smoking history, tot al pack/day 2 Jayesh Shabazz cigarette use yes Jayesh her smoking status Former smoker Jayesh Sandoval social history E&M Marital Statu s: Single L lashanda with family/friends J ob Status: Disabled Smoking History: Senait weaver is a former smoker. Quentin Cardenas MD social history reviewed E&M revi ewed - no changes required Quentin Cardenas MD seatbelt usage 100 % Magi cooney physical exercise, frequency, days per week no Magi Jaime caffeine use, averag e drinks per day no Magi Jaime passive cigarette sm josue exposure no Magi Jaime smoking, year quit 1997 Magi sanchez number of years as a smoker 30 a Magi Jaime smoking history, tot al pack/year 60 Magi Jaime smoking history, tot al pack/day 2 Magi Jaime cigarette use yes Magi gr smoking status Former smoker Magi vera smoking status Former smoker Quentin barnett MD social history reviewed E&M revi ewed - no changes required Quentin Cardenas MD social history reviewed E&M revi ewed - no changes required Tr Webber social history E&M Marital Statu s: Single L lashanda with family/friends J ob Status: Disabled Smoking History: Senait weaver is a former smoker. Tr Webber seatbelt usage 100 % [facility] m physical exercise, frequency, days per week no [facility], average drinks per day none Nilwood Diop alcohol use no Nilwood caffeine use, averag e drinks per day no Nilwood drug use none Nilwood passive cigarette sm josue exposure no Nilwood smoking, year quit 1997 Jarret I ngram number of years as a smoker 30 a [facility] smoking history, tot al pack/year 60 [facility], tot al pack/day 2 [facility] cigarette use yes [facility] smoking status Former smoker [facility] number of grandchildren Jorge Luis Webber social history reviewed E&M revi ewed - no changes required Tr Webber social history E&M Marital Statu s: Single L lashanda with family/friends J ob Status: Disabled Smoking History: Senait weaver is a former smoker. Tr Webber seatbelt usage 100 % Adelita Terry physical exercise, frequency, days per week no Adelita Terry alcohol use, average drinks per day none Adelita Terry alcohol use no Adelita Terry caffeine use, averag e drinks per day no Adelita Terry drug use none Adelita Terry passive cigarette sm josue exposure no Adelita Terry smoking, year quit 1997 Adelita Amirah s number of years as a smoker 30 a Adelita Terry smoking history, tot al pack/year 60 Adelita Terry smoking history, tot al pack/day 2 Adelita Terry cigarette use yes Adelita Terry smoking status Former smoker Adelita Terry social history E&M Marital Statu s: Single L lashanda with family/friends J ob Status: Disabled Smoking History: Senait weaver is a former smoker. Quentin Cardenas MD social history reviewed E&M revi ewed - no changes required Quentin Cardenas MD seatbelt usage 100 % Adelita Terry physical exercise, frequency, days per week no Adelita Terry alcohol use, average drinks per day none Adelita Terry alcohol use no Adelita Terry caffeine use, averag e drinks per day no Adelita Terry drug use none Adelita Terry passive cigarette sm josue exposure no Adelita Terry smoking, year quit 1998 Adelita Amirah s number of years as a smoker 30 a Adelita Terry smoking history, tot al pack/year 60 Adelita Terry smoking history, tot al pack/day 2 Adelita Terry cigarette use yes Adelita Terry smoking status Former smoker Adelita Terry social history E&M Marital Statu s: Single L lashanda with family/friends J ob Status: Disabled Smoking History: Senait weaver is a former smoker. Quentin Cardenas MD social history reviewed E&M revi ewed - no changes required Quentin Cardenas MD seatbelt usage 100 % Jayesh Heaton physical exercise, frequency, days per week no Jayesh Shabazz alcohol use, average drinks per day none Jayesh Shabazz alcohol use no Jayesh altman caffeine use, averag e drinks per day no Jayesh Shabazz drug use none Jayesh altman passive cigarette sm josue exposure no Jayesh Shabazz smoking, year quit 1997 Jayesh Shabazz number of years as a smoker 30 a Jayesh Shabazz smoking history, tot al pack/year 60 Jayesh Shabazz smoking history, tot al pack/day 2 Jayesh Shabazz cigarette use yes Jayesh her smoking status Former smoker Jayesh Sandoval social history E&M Marital Statu s: Single L lashanda with family/friends J ob Status: Disabled Smoking History: P atient is a former smoker. Quentin Cardenas MD social history reviewed E&M revi ewed - no changes required Quentin Cardenas MD seatbelt usage 100 % Jayesh Villaseñorthierry physical exercise, frequency, days per week no Jayesh Shabazz alcohol use, average drinks per day none Jayesh Shabazz alcohol use no Jayesh altman caffeine use, averag e drinks per day no Jayesh Shabazz drug use none Jayesh altman passive cigarette sm josue exposure no Jayesh Shabazz smoking, year quit 1997 Jayesh Shabazz number of years as a smoker 30 a Jayesh Shabazz smoking history, tot al pack/year 60 Jayesh Shabazz smoking history, tot al pack/day 2 Jayesh Shabazz cigarette use yes Jayesh her smoking status Former smoker Jayesh Sandoval social history reviewed E&M revi ewed - no changes required Quentin Cardenas MD number of grandchildren Quentin Gomez social history E&M Marital Statu s: Single L lashanda with family/friends J ob Status: Disabled Smoking History: P atient is a former smoker. Quentin Cardenas MD social history reviewed E&M revi ewed - no changes required Quentin Cardenas MD seatbelt usage 100 % Jayesh Heaton physical exercise, frequency, days per week no Jayesh Shabazz alcohol use, average drinks per day none Jayesh Shabazz alcohol use no Jayesh altman caffeine use, averag e drinks per day no Jayesh Shabazz drug use none Jayesh ivoryon passive cigarette sm josue exposure no Jayesh Shabazz smoking, year quit 1997 Jayesh Shabazz number of years as a smoker 30 a Jayesh Shabazz smoking history, tot al pack/year 60 Jayesh Shabazz smoking history, tot al pack/day 2 Jayesh Shabazz cigarette use yes Jayesh her smoking status Former smoker Jayesh Sandoval social history reviewed E&M revi ewed - no changes required Quentin Cardenas MD seatbelt usage 100 % Denise Swenson physical exercise, frequency, days per week no Denise Swenson alcohol use, average drinks per day none Denise Swenson alcohol use no Denise Swenson caffeine use, averag e drinks per day no Denise Swenson drug use none Denise Swenson passive cigarette sm josue exposure no Denise Swenson smoking, year quit 1997 Denise Miguel [facility] number of years as a smoker 30 a Denise Swenson smoking history, tot al pack/year 60 Denise Swenson smoking history, tot al pack/day 2 Denise Swenson cigarette use yes Denise Swenson smoking status Former smoker Denise Swenson social history reviewed E&M revi ewed - no changes required Bob Poe seatbelt usage 100 % Nicolle Hughes dimitri physical exercise, frequency, days per week no Nicolle Ordoñezlin alcohol use, average drinks per day none Nicolle Ordoñezlin alcohol use no Nicolle Guzman jack caffeine use, averag e drinks per day no Nicolle Campbelljayrodenisetoby drug use none Nicolle Guzman yovanny passive cigarette sm josue exposure no Nicolle Ordoñezbinunnamdi smoking, year quit 1997 Nicolle Mckay kar number of years as a smoker 30 a Nicolle Suzanne smoking history, tot al pack/year 60 Nicolle Campbellmario smoking history, tot al pack/day 2 Nicolle Campbellmario cigarette use yes Nicolel Ordoñez lin smoking status Former smoker Nicolle luis seatbelt usage 100 % Saulius Arvind camargo MD physical exercise, frequency, days per week no Saulius Kim GREENE alcohol use, average drinks per day none Saulius Kim GREENE alcohol use no Saulius Kalia islas MD caffeine use, averag e drinks per day no Saulius Kim GREENE drug use none Saulius Arvindit janel GREENE passive cigarette sm josue exposure no Saulius Doroteovaraman GREENE smoking, year quit 1997 Jorge Luis wells MD number of years as a smoker 30 a Jorge Luis Alvarez MD smoking history, tot al pack/year 60 Saulius Kim GREENE smoking history, tot al pack/day 2 Saulius Kim GREENE cigarette use yes Saulius Kacie hoff MD smoking status Former smoker Saulius Sowmya negrete MD social history reviewed E&M revi ewed - no changes required Jorge Luis Alvarez MD social history reviewed E&M orestes ewed - no changes required Jorge Luis Alvarez MD social history E&M Marital Statu s: Single Aislinn pyle with family/friends J ob Status: Disabled Smoking History: Senait weaver is a former smoker. Jorge Luis Alvarez MD number of grandchildren Jorge Luis Alvarez MD seatbelt usage 100 % Margot Watters n physical exercise, frequency, days per week no Margot Márquez alcohol use, average drinks per day none Margot Márquez alcohol use no Margot Márquez caffeine use, averag e drinks per day no Margot Márquez drug use none Margot Márquez passive cigarette sm josue exposure no Margot Márquez smoking, year quit 1997 Margot Dixon Sharita number of years as a smoker 30 a Margot Márquez smoking history, tot al pack/year 60 Margot Márquez smoking history, tot al pack/day 2 Margot Márquez cigarette use yes Margot Márquez smoking status Former smoker Margot Crow selvin social history reviewed E&M revi ewed - no changes required Quentin Cardenas MD seatbelt usage 100 % Tana Bharat physical exercise, frequency, days per week no Tana Acworth alcohol use, average drinks per day none Tana Bharat alcohol use no Tana Bharat caffeine use, averag e drinks per day no Tana Acworth drug use none Tana Acworth passive cigarette sm josue exposure no Tana Acworth smoking, year quit 1997 Tana salgado number of years as a smoker 30 a Tana Acworth smoking history, tot al pack/year 60 Tana Ring smoking history, tot al pack/day 2 Tana Ring cigarette use yes Tana Ring smoking status Former smoker Tana Nicholson number of grandchildren Quentin Cardenas MD Tana Ring seatbelt usage 100 % Tana Ring physical exercise, frequency, days per week no Tana Ring alcohol use, average drinks per day none Tana Ring alcohol use no Tana Ring caffeine use, averag e drinks per day no Tana Ring drug use none Tana smoking/tobacco cess ation, patient education and counseling yes Tana Ring passive cigarette sm josue exposure no Tana Nicholson smoking, year quit 1997 Tana el number of years as a smoker 30 a Tana Nicholson smoking history, tot al pack/year 60 Tana Ring smoking history, tot al pack/day 2 Tana Ring cigarette use yes Tana Ring smoking status Former smoker Tana Nicholson social history reviewed E&M revi ewed - no changes required Quentin Cardenas MD seatbelt usage 100 % Jayesh Heaton physical exercise, frequency, days per week no Jayesh Shabazz alcohol use, average drinks per day none Jayesh Shabazz alcohol use no Jayesh altman caffeine use, averag e drinks per day no Jayesh Shabazz drug use none Jayesh altman passive cigarette sm josue exposure no Jayesh Shabazz smoking, year quit 1997 Jayesh Shabazz number of years as a smoker 30 a Jayesh Shabazz smoking history, tot al pack/year 60 Jayesh Shabazz smoking history, tot al pack/day 2 Jayesh Shabazz cigarette use yes Jayesh her smoking status Former smoker Jayesh Sandoval smoking/tobacco cess ation, patient education and counseling No Quentin Cardenas MD social history reviewed E&M revi ewed - no changes required Quentin Cardenas MD alcohol use no Nicolle santiago number of years as a smoker 30 a Nicolle Suzanne smoking history, tot al pack/day 2 Nicolle Palacios cigarette use yes Nicolle Smita ceballos smoking status Former smoker Nicolle Marta luis social history reviewed E&M revi ewed - no changes required Quentin Cardenas MD smoking/tobacco cess ation, patient education and counseling No Quentin Cardenas MD social history reviewed E&M revi ewed - no changes required Quentin Cardenas MD cigarette use yes Shakir Guaman smoking status Former smoker Shakir goldstein social history reviewed E&M reviewed Oskar Estrada RN social history reviewed E&M reviewed Oskar Estrada RN drug use none Quentin Chatterjee social history reviewed E&M reviewed Quentin Cardenas MD seatbelt usage 100 % Quentin Cardenas MD drug use no Quentin Chatterjee passive cigarette sm josue exposure no Oskar Estrada RN smoking history, tot al pack/year 60 Oskar Estrada RN smoking, year quit 1998 Oskar de los santos RN social history reviewed E&M reviewed Oskar Estrada RN smoking status former smoker Oskar Barnett social history reviewed E&M reviewed Quentin Cardenas MD social history reviewed E&M reviewed Oskar Estrada RN social history reviewed E&M reviewed Oskar Estrada RN social history reviewed E&M reviewed Oskar Estrada RN social history E&M Marital Statu s: Single L lashanda with family/friends J ob Status: Disabled Quentin Cardenas MD drug use none Quentin Chatterjee social history reviewed E&M reviewed Quentin Cardenas MD physical exercise, frequency, days per week no [facility] caffeine use, averag e drinks per day no [facility] alcohol use, average drinks per day none [facility] number of years as a smoker 10 years or m ore [facility] smoking status Quit [facility] MENTAL STATUS Date Observation Value Provider assessment of judgme nt and insight E&M Alert and oriented to time, place and person. Mood and affect are normal. Oskar Estrada RN assessment of judgme nt and insight E&M Alert and oriented to time, place and person. Mood and affect are normal. Oskar Estrada RN assessment of judgme nt and insight E&M Alert and oriented to time, place and person. Mood and affect are normal. Oskar Estrada RN assessment of judgme nt and insight E&M Alert and oriented to time, place and person. Mood and affect are normal. Oskar Estrada RN assessment of judgme nt and insight E&M Alert and oriented to time, place and person. Mood and affect are normal. Quentin Cardenas MD assessment of judgme nt and insight E&M Alert and oriented to time, place and person. Mood and affect are normal. Oskar Estrada RN assessment of judgme nt and insight E&M Alert and oriented to time, place and person. Mood and affect are normal. Oskar Estrada RN assessment of judgme nt and insight E&M Alert and oriented to time, place and person. Mood and affect are normal. Oskar Estrada RN assessment of judgme nt and insight E&M Alert and oriented to time, place and person. Mood and affect are normal. Quentin Cardenas MD FAMILY HISTORY Family Member Condition Father Family History of Hy pertension: INSURANCE PROVIDERS Payer name Policy type / Coverage type Ping red libertarian [employer] [facility] [facility] Medicaid 1 [id number] [facility] MEDICARE ADVANTAGE [place] (PPO) Medicare [id number] ADVANCE DIRECTIVES Name Date DISCUSSED - NO DECISION MADE TREATMENT PLAN Date Name Performer [id number],C, H er updated medication list for this problem includes: Lipitor 80 Mg Tablet (Atorvastatin) ..... 1 tablet once a day Joy Ventimiglia [facility] [id number],S, Joy Venti miglia [facility] [id number],C,on HD Joy Ventimiglia [facility] [id number],C,W ill have her take increased midodrine during HD 10 mg prior and 10 mg during Joy Ventimiglia [facility] [id number],C,m ild per last echo w ill do f/u echo given known stenosis and worsening hypotension Joy Ventimiglia [facility] [id number],C,r ate regular and controlled on exam o n no AC has SHIMON closure Joy Ventimiglia [facility] [id number],S, Quentin barnett MD [id number],S, Quentin barnett MD [id number],S, Quentin barnett MD [id number],S, Quentin barnett MD [id number],S,S/P amulet. R tyler Cardenas MD [id number],SQuentin MD [id number],S, Quentin barnett MD [id number],S, Quentin barnett MD [id number],B, Quentin barnett MD [id number],W,H as R leg lymphedema following cancer surgery. Quentin Cardenas MD [id number],B, Quentin barnett MD [id number],S,B P recheck 136/62 Her updated medication list for this problem includes: Metoprolol Succinate 25 Mg Tablet Extended Release 24 Hr (Metoprolol succinate) ..... 1/2 tablet once a day Kathe Agustín ESCOBAR [id number],W,p soumya for EPS and ablation. Check pre ablation CT. Start Eliquis 5 mg po BID for one month Kathe Agustín ESCOBAR [id number],W,w eight loss encouraged. Appears fluid overloaded. Encouraged patient to keep scheduled HD appointments and if swelling gets worse over the weekend and sob worsens to go to the ED. Kathe Agustín ESCOBAR [id number],W,f luid volume management per Nephrology/HD Kathe Agustín ESCOBAR [id number],C,i n NSR today. H er updated medication list for this problem includes: Metoprolol Succinate 25 Mg Tablet Extended Release 24 Hr (Metoprolol succinate) ..... 1/2 tablet once a day Kathe Randolph NP [id number],S, Quentin barnett MD [id number],S, Quentin barnett MD [id number],S, Quentin barnett MD [id number],S, Quentin barnett MD [id number],S, Quentin barnett MD [id number],S, Quentin barnett MD [id number],S, Quentin barnett MD [id number],S, Quentin Cosme n [id number],B, Quentin Cosme n [id number],S, Quentin Cosme n [id number],S, Quentin Cosme n [id number],S, Quentin Cosme n [id number],S, Quentin Cosme n [id number],S, Quentin Cosme n [id number],S, Quentin Cosme n [id number],N,Stop metoprol ol. Check ECHO Quentin Cardenas MD Cardiology: H er updated medication list for this problem includes: Lipitor 80 Mg Tablet (Atorvastatin) ..... 1 tablet once a day Quentin Cardenas MD Cardiology Quentin Cardenas MD Cardiology Quentin Cardenas MD Cardiology:This visi t has been a part of the consistent, comprehensive, and ongoing management of the chronic medical condition(s) listed above for the patient. N o recent episodes S /P ablation Quentin Cardenas MD Cardiology: on HD MWF Jean Hartley NP Cardiology: T he patient is using CPAP on a regular basis. The patient has been benefiting from therapy and should continue use. Jean Hartley NP Cardiology: H er updated medication list for this problem includes: Lipitor 80 Mg Tablet (Atorvastatin) ..... 1 tablet once a day Jean Hartley NP Cardiology: B P today: 112/68 P rior BP: 122/62 (01/09/2024) On midodrine on dialysis days Jean Hartley NP Cardiology: S ymptoms at baseline Jean Hartley NP Cardiology: N o recent episodes Jean Hartley NP Electrophysiology Jorge Luis hoff MD Electrophysiology:BP today 122/62. midodrine on days of HD, MWF Nancy Jameson SYSTEM TRAINER Electrophysiology:no evidence of AFIB on last 14 day telesentry monitor 07/2023. when presented to ED 10/31/23 with rapid HR, suspect SVT given that pt converted with adenosine 6mg then 12mg. EKG today SR 75. Nancy Jameson SYSTEM TRAINER Electrophysiology Nancy Johnson er SYSTEM TRAINER Cardiology:The patie nt is using CPAP on a regular basis. The patient has been benefiting from therapy and should continue use. Joyamalia Herrera [facility] Cardiology: H er updated medication list for this problem includes: Lipitor 80 Mg Tablet (Atorvastatin) ..... [facility] Cardiology:mild on last echo [facility] Cardiology:Recent ho spital stay for recurrent afib/SVT with rvr I n NSR on exam today N o further reports of palpitations H as SHIMON closure as cannot tolerate AC E pisodes are rather infrequent, has been referred to EP in the past, but ablation was delayed d/t cancer which is now in remission W ill refer back to EP for evaluation H er updated medication list for this problem includes: Clopidogrel 75 Mg Tablet (Clopidogrel) ..... Take 1 tablet by mouth once a day Joy Herrera [facility] Cardiology Quentin Cardenas MD Cardiology Quentin Cardenas MD Cardiology:The patie nt is using CPAP on a regular basis. The patient has been benefiting from therapy and should continue use. Quentin Cardenas MD Cardiology:Stress negative Quentin Cardenas MD Cardiology:None on holter Quentin Cardenas MD Cardiology:episode o f tachycardia with CP and SOB on friday. hx of ILR that was previously removed will check 1 week telesentry Nancy Jameson NP Cardiology:07/15/23 wi th episode of CP and tachycardia on earlier this week ECHO: 04/2023 EF 60%, impaired LV relaxation, mild s tress test: 2018 negative for ischemia c 2016 NO CAD will arrange for nuclear stress test. pt is unable to walk on treadmill d/t back pain, joint pain and use of walker to ambulate Nancy Jameson NP Cardiology:07/15/23 wi th episode of CP and tachycardia on earlier this week ECHO: 04/2023 EF 60%, impaired LV relaxation, mild s tress test: 2018 negative for ischemia c ath 2016 NO CAD will arrange for nuclear stress test. pt is unable to walk on treadmill d/t back pain, joint pain and use of walker to ambulate Nancy Jameson NP Cardiology:issues wi th hypotension with HD. HD treatments adjusted per Neph. on midodrine 10mg BID on HD days BP today: 122/66 P rior BP: 112/62 (04/15/2023) Labs Reviewed: C reat: 5.0 (04/24/2016) Nancy Jameson NP Cardiology: H er updated medication list for this problem includes: Atorvastatin 80 Mg Tablet (Atorvastatin) ..... Take 1 tablet by mouth once a day Lipitor 80 Mg Tablet (Atorvastatin) ..... 1 tablet once a day Nancy Jameson NP Cardiology:mild on echo 04/28 23 Nancy Jameson NP Cardiology:compliant with cpap J yomaira Jameson NP Cardiology:reports r ecent issues with hypotension with HD. on midodrine 10mg BID on HD days. adjustments per neph for HD treatements B P stable today Nancy Jameson NP Cardiology:NO LONGER HAS LOOP RE RADHA Nancy Jameson NP Cardiology:07/15 episo de of CP and tachycardia on friday with palpitations and SOB. will arrange for 1 week telesentry E CHO: 04/2023 EF 60%, impaired LV relaxation, mild s tress test: 2018 negative for ischemia c 2016 NO CAD rate regular and controlled on exam o n no AC has SHIMON closure 11/2022 s/p AMULET Nancy Jameson SYSTEM TRAINER Cardiology Nancy Jameson SYSTEM TRAINER Cardiology: H er updated medication list for this problem includes: Lipitor 80 Mg Tablet (Atorvastatin) ..... 1 tablet once a day Ojy Ventimiglia [facility] Cardiology Joy Ventimigl ia [facility] Cardiology:on HD Joy Ventimig tian [facility] Cardiology:Will have her take increased midodrine during HD 10 mg prior and 10 mg during Joy Ventimiglia [facility] Cardiology:mild per last echo w ill do f/u echo given known stenosis and worsening hypotension Joy Ventimiglia [facility] Cardiology:rate regu lar and controlled on exam o n no AC has SHIMON closure Joy Ventimimikaelia [facility] Cardiology Quentin Cardenas MD Cardiology Quentin Cardenas MD Cardiology Quentin Cardenas MD Cardiology Quentin Cardenas MD Cardiology:S/P amulet. Quentin giraldo MD Cardiology Quentin Cardenas MD Cardiology Quentin Cardenas MD Cardiology Quentin Cardenas MD Cardiology Quentin Cardenas MD Cardiology:Has R leg lymphedema following cancer surgery. Quentin Cardenas MD Cardiology Quentin Cardenas MD Electrophysiology:BP recheck 136/62 Her updated medication list for this problem includes: Metoprolol Succinate 25 Mg Tablet Extended Release 24 Hr (Metoprolol succinate) ..... 1/2 tablet once a day Kathe Randolph NP Electrophysiology:pl an for EPS and ablation. Check pre ablation CT. Start Eliquis 5 mg po BID for one month Kathe Randolph NP Electrophysiology:we ight loss encouraged. Appears fluid overloaded. Encouraged patient to keep scheduled HD appointments and if swelling gets worse over the weekend and sob worsens to go to the ED. Kathe Agustín SYSTEM TRAINER Electrophysiology:fl uid volume management per Nephrology/HD Kathe Agustín SYSTEM TRAINER Electrophysiology:in NSR today. H er updated medication list for this problem includes: Metoprolol Succinate 25 Mg Tablet Extended Release 24 Hr (Metoprolol succinate) ..... 1/2 tablet once a day Kathe Randolph NP Cardiology Quentin Cardenas MD Cardiology Quentin Cardenas MD Cardiology Quentin Cardenas MD Cardiology Quentin Cardenas MD Cardiology Quentin Cardenas MD Cardiology Quentin Cardenas MD Cardiology Quentin Theresa GREENE Cardiology Quentin Cardenas MD Cardiology Quentin Theresa GREENE Cardiology Quentin Cardenas MD Cardiology Quentin Theresa GREENE Cardiology Quentin Theresa GREENE Cardiology Quentin Theresa GREENE Cardiology Quentin Theresa GREENE Cardiology Quentin Theresa GREENE Cardiology:Stop metoprolol. Chec k ECHO Quentin aCrdenas MD Cardiology follow up Quentin petersen MD Cardiology follow up Quentin petersen MD Cardiology follow up Quentin petersen MD Cardiology follow up Quentin petersen MD Cardiology follow up Quentin petersen MD Cardiology Quentin Cardenas MD Cardiology Quentin Cardenas MD Cardiology Quentin Cardenas MD Cardiology Quentin Cardenas MD Cardiology Quentin Cardenas MD Cardiology:PFTs toda y 03/06/18 showed DLCO 74% ad KCO 115%. Her updated medication list for this problem includes: Metoprolol Tartrate 25 Mg Oral Tablet (Metoprolol tartrate) ..... 1/2 pill twice a day Aspirin 81 Mg Oral Tablet (Aspirin) ..... One tab. daily Tr Webber Cardiology:14-day Te lesentry 02/2018 normal. Orders: Kaushal PENNY ([id number]) Her updated medication list for this problem includes: Metoprolol Tartrate 25 Mg Oral Tablet (Metoprolol tartrate) ..... 1/2 pill twice a day Aspirin 81 Mg Oral Tablet (Aspirin) ..... One tab. daily Tr Webber Cardiology:No VT on 14-day Telesentry 02/2018. Her updated medication list for this problem includes: Metoprolol Tartrate 25 Mg Oral Tablet (Metoprolol tartrate) ..... 1/2 pill twice a day Aspirin 81 Mg Oral Tablet (Aspirin) ..... One tab. daily Tr Webber Cardiology:ILR impla nted in 05/2016, but immediately post-procedure she developed discomfort at the site, which became more severe to the point that she wanted the device to be extracted. ILR removed on 12/16/16. Hx of EP ablation for a-flutter on 12/2004, which was successful, and EP ablation for SVT in 05/2016. Her updated medication list for this problem includes: Metoprolol Tartrate 25 Mg Oral Tablet (Metoprolol tartrate) ..... 1/2 pill twice a day Aspirin 81 Mg Oral Tablet (Aspirin) ..... One tab. daily Tr Webber Electrophysiology fo llow up:Orders: S kathryn [facility] ([id number]) Tr Webber Electrophysiology fo llow up:Orders: F VC - 11167 ([id number]) F RC - 77346 ([id number]) D LCO - 00160 ([id number]) Her updated medication list for this problem includes: Metoprolol Tartrate 25 Mg Oral Tablet (Metoprolol tartrate) ..... 1/2 pill twice a day Aspirin 81 Mg Oral Tablet (Aspirin) ..... One tab. daily Tr Webber Electrophysiology fo llow up:Orders: E KG ([id number]) Zack obile [facility] ([id number]) S [facility] Followup (*) Her updated medication list for this problem includes: Metoprolol Tartrate 25 Mg Oral Tablet (Metoprolol tartrate) ..... 1/2 pill twice a day Aspirin 81 Mg Oral Tablet (Aspirin) ..... One tab. daily Tr Akbar Electrophysiology fo llow up:ILR implanted in 05/2016, but immediately post-procedure she developed discomfort at the site, which became more severe to the point that she wanted the device to be extracted. ILR removed on 12/16/16. Hx of EP ablation for a-flutter on 12/2004, which was successful, and EP ablation for SVT in 05/2016. Orders: Zack [employer] ([id number]) S [facility] Followup (*) Her updated medication list for this problem includes: Metoprolol Tartrate 25 Mg Oral Tablet (Metoprolol tartrate) ..... 1/2 pill twice a day Aspirin 81 Mg Oral Tablet (Aspirin) ..... One tab. daily Tr Akbar Electrophysiology fo llow up:Orders: Zack [facility] [facility] [employer] (CPT-[id number]) [facility] (*) Her updated medication list for this problem includes: Metoprolol Tartrate 25 Mg Oral Tablet (Metoprolol tartrate) ..... 1/2 pill twice a day Aspirin 81 Mg Oral Tablet (Aspirin) ..... One tab. daily Tr Akbar Cardiology follow up Quentin petersen MD Cardiology follow up Quentin petersen MD Cardiology follow up Quentin petersen MD Cardiology follow up Quentin petersen MD Cardiology follow up Quentin petersen MD Cardiology follow up :Has had 2 episodes in last month. 1 episode lasted 2-3 hours with a rate of 184. Broke by time got to ER. A blation was in 2004. B io loop out due to discomfort. W ill have her see Dr Alvarez for repeat EP study and possible repeat ablation. Quentin Cardenas MD Cardiology Quentin Cardenas MD Cardiology Quentin Cardenas MD Cardiology Quentin Cardenas MD Cardiology Quentin Cardenas MD Cardiology Quentin Cardenas MD Cardiology Quentin Cardenas MD Cardiology Quentin Cardenas MD Cardiology Quentin Cardenas MD Cardiology Quentin Cardenas MD Cardiology Quentin Cardenas MD Cardiology Quentin Cardenas MD Cardiology Quentin Cardenas MD Cardiology Quentin Cardenas MD Cardiology Quentin Cardenas MD Cardiology Quentin Cardenas MD Cardiology Quentin Cardenas MD Cardiology Quentin Cardenas MD Cardiology Quentin Cardenas MD Cardiology Quentin Cardenas MD Cardiology Quentin Cardenas MD Cardiology Quentin Cardenas MD Cardiology Quentin Cardenas MD Cardiology Quentin Cardenas [facility] Follow up Ra diaz [facility] Follow up Ra diaz Cardenas [facility] Follow up Ra diaz [facility]as [facility] Follow up Ra diaz C[facility]as [facility] Follow up Ra diaz Cardenas [facility] Follow up:With recurrance 07/26. Bio loop causing a lot of discomfort, may need to remove. Quentin Cardenas MD EP Follow up faxed 06/20/16 Evonne Poe EP Follow up faxed :BP today: 110/54 P rior BP: 125/66 (05/17/2016) Her updated medication list for this problem includes: Aspirin 81 Mg Tabs (Aspirin) ..... One tab. daily Bob Poe EP Follow up faxed 06/20/16 Evonne Poe EP Follow up faxed :Will be monitored via ILR. Bob Poe EP Follow up faxed :S/P SVT ablation on May 09. Will be monitored via ILR. Bob Poe EP Hospital Follow u p:S/P SVT ablation and Reveal implantation on 05/09. Jorge Luis Alvarez MD EP faxed 04/16/16 Jorge Luis islas MD EP faxed 04/16/16 Jorge Luis islas MD EP faxed 04/16/16:BP today: 133/59 P rior BP: 120/60 (03/19/2016) Jorge Luis Alvarez MD EP faxed 04/16/16:Las t echo in 10/2015 showed mild aortic stenosis. Jorge Luis Alvarez MD EP faxed 04/16/16:Ord ers: S NOMED-CT: [id number] Current Medications Documented ([id number]) E KG (CPT-[id number]) E P Study w/anesthesia (*) Jorge Luis Alvarez MD EP faxed 04/16/16:Ord ers: S NOMED-CT: [id number] Current Medications Documented ([id number]) E KG (CPT-80132) E P Study w/anesthesia (*) Jorge Luis Alvarez MD Cardiology Quentin Cardenas MD Cardiology Quentin Cardenas MD Cardiology Quentin Cardenas MD Cardiology Quentin Cardenas MD Cardiology Quentin Cardenas MD Cardiology:Had ablat ion in 2004 with 1 recurrance 6 months later. No further episodes until last month. Will have her see Dr Alvarez for his opinion re: medications vs ablation. Quentin Cardenas MD Cardiology Quentin Cardenas MD Cardiology Quentin Cardenas MD Cardiology Quentin Cardenas MD Cardiology Quentin Cardenas MD Cardiology Quentin Cardenas MD Follow up Quentin Cardenas MD Follow up : T he following medications were removed from the medication list: Losartan Potassium 50 Mg Tabs (Losartan potassium) ..... Daily Amlodipine Besylate 10 Mg Tabs (Amlodipine besylate) ..... Daily Her updated medication list for this problem includes: Aspirin 325 Mg Tabs (Aspirin) ..... 1 tablet by mouth daily Quentin Cardenas MD Follow up Quentin Cardenas MD Follow up Quentin Cardenas MD [facility] Quentin Cardenas MD [facility] Quentin Cardenas MD [facility] Quentin Cardenas MD [facility] Quentin Cardenas MD [facility] Quentin Cardenas MD follow up : H er updated medication list for this problem includes: Metolazone 2.5 Mg Tabs (Metolazone) ..... Once daily Atenolol 25 Mg Tabs (Atenolol) ..... Daily Aspirin 325 Mg Tabs (Aspirin) ..... 1 tablet by mouth daily Losartan Potassium 50 Mg Tabs (Losartan potassium) ..... Daily Amlodipine Besylate 10 Mg Tabs (Amlodipine besylate) ..... Daily Bumetanide 2 Mg Tabs (Bumetanide) ..... Bid Orders: Robin Terrell (CPT-23323) Quentin Cardenas MD follow up Quentin Cardenas MD follow up Quentin Cardenas MD follow up Quentin Cardenas MD follow up Quentin Cardenas MD follow up Quentin Cardenas MD follow up : H er updated medication list for this problem includes: Atenolol 25 Mg Tabs (Atenolol) ..... Daily Aspirin 325 Mg Tabs (Aspirin) ..... 1 tablet by mouth daily Amlodipine Besylate 10 Mg Tabs (Amlodipine besylate) ..... Daily BP today: 129/69 Prior BP: 129/61 (03/30/2013) H CT: 40.5 (01/28/2013) Platelets: 297 (01/28/2013) C reat: 2.35 (01/28/2013) Na+: 145 (01/28/2013) K+: 4.1 (01/28/2013) Nuclear Stress Findings: 1. Normal myocardial perfusion imaging after vasodilator stress with Regadenoson. 2 . Normal left ventricular systolic function with a calculated ejection fraction of 75%. 3 . No obvious significant scintigraphic evidence of myocardial ischemia or scar. - (03/04/2013) Quentin Cardenas MD follow up : H er updated medication list for this problem includes: Atenolol 25 Mg Tabs (Atenolol) ..... Daily Aspirin 325 Mg Tabs (Aspirin) ..... 1 tablet by mouth daily Losartan Potassium 50 Mg Tabs (Losartan potassium) ..... Daily Amlodipine Besylate 10 Mg Tabs (Amlodipine besylate) ..... Daily Bumetanide 2 Mg Tabs (Bumetanide) ..... Bid BP today: 129/69 Prior BP: 129/61 (03/30/2013) Labs Reviewed: C reat: 2.35 (01/28/2013) Quentin Cardenas MD follow up : H er updated medication list for this problem includes: Aspirin 325 Mg Tabs (Aspirin) ..... 1 tablet by mouth daily Glimepiride 1 Mg Tabs (Glimepiride) ..... One tab daily Losartan Potassium 50 Mg Tabs (Losartan potassium) ..... Daily BP today: 129/69 Prior BP: 129/61 (03/30/2013) Labs Reviewed: C reat: 2.35 (01/28/2013) Quentin Cardenas MD follow up : H er updated medication list for this problem includes: Lipitor 40 Mg Tabs (Atorvastatin calcium) ..... One tab. daily Trilipix 135 Mg Cpdr (Choline fenofibrate) ..... 1 capsule by mouth daily BP today: 129/69 Prior BP: 129/61 (03/30/2013) Quentin Cardenas MD follow up : H er updated medication list for this problem includes: Atenolol 25 Mg Tabs (Atenolol) ..... Daily Aspirin 325 Mg Tabs (Aspirin) ..... 1 tablet by mouth daily Amlodipine Besylate 10 Mg Tabs (Amlodipine besylate) ..... Daily BP today: 129/69 Prior BP: 129/61 (03/30/2013) H CT: 40.5 (01/28/2013) Platelets: 297 (01/28/2013) C reat: 2.35 (01/28/2013) Na+: 145 (01/28/2013) K+: 4.1 (01/28/2013) Nuclear Stress Findings: 1. Normal myocardial perfusion imaging after vasodilator stress with Regadenoson. 2 . Normal left ventricular systolic function with a calculated ejection fraction of 75%. 3 . No obvious significant scintigraphic evidence of myocardial ischemia or scar. - (03/04/2013) Quentin Cardenas MD follow up : H er updated medication list for this problem includes: Atenolol 25 Mg Tabs (Atenolol) ..... Daily Aspirin 325 Mg Tabs (Aspirin) ..... 1 tablet by mouth daily Amlodipine Besylate 10 Mg Tabs (Amlodipine besylate) ..... Daily BP today: 129/69 Prior BP: 129/61 (03/30/2013) N uclear Stress Findings: 1. Normal myocardial perfusion imaging after vasodilator stress with Regadenoson. 2 . Normal left ventricular systolic function with a calculated ejection fraction of 75%. 3 . No obvious significant scintigraphic evidence of myocardial ischemia or scar. - (03/04/2013) H CT: 40.5 (01/28/2013) Platelets: 297 (01/28/2013) C reat: 2.35 (01/28/2013) Na+: 145 (01/28/2013) K+: 4.1 (01/28/2013) Quentin Cardenas MD test results : B P today: / Prior BP: 102/57 (03/02/2013) H CT: 40.5 (01/28/2013) Platelets: 297 (01/28/2013) C reat: 2.35 (01/28/2013) Na+: 145 (01/28/2013) K+: 4.1 (01/28/2013) Nuclear Stress Findings: 1. Normal myocardial perfusion imaging after vasodilator stress with Regadenoson. 2 . Normal left ventricular systolic function with a calculated ejection fraction of 75%. 3 . No obvious significant scintigraphic evidence of myocardial ischemia or scar. - (03/04/2013) Quentin Cardenas MD test results : P rior BP: 102/57 (03/02/2013) Labs Reviewed: C reat: 2.35 (01/28/2013) Quentin Cardenas MD test results : B P today: / Prior BP: 102/57 (03/02/2013) Labs Reviewed: C reat: 2.35 (01/28/2013) Quentin Cardenas MD test results : B P today: / Prior BP: 102/57 (03/02/2013) BP today: 129/61 Prior BP: 102/57 (03/02/2013) Quentin Cardenas MD test results : B P today: / Prior BP: 102/57 (03/02/2013) H CT: 40.5 (01/28/2013) Platelets: 297 (01/28/2013) C reat: 2.35 (01/28/2013) Na+: 145 (01/28/2013) K+: 4.1 (01/28/2013) Nuclear Stress Findings: 1. Normal myocardial perfusion imaging after vasodilator stress with Regadenoson. 2 . Normal left ventricular systolic function with a calculated ejection fraction of 75%. 3 . No obvious significant scintigraphic evidence of myocardial ischemia or scar. - (03/04/2013) Quentin Cardenas MD test results : B P today: / Prior BP: 102/57 (03/02/2013) N uclear Stress Findings: 1. Normal myocardial perfusion imaging after vasodilator stress with Regadenoson. 2 . Normal left ventricular systolic function with a calculated ejection fraction of 75%. 3 . No obvious significant scintigraphic evidence of myocardial ischemia or scar. - (03/04/2013) H CT: 40.5 (01/28/2013) Platelets: 297 (01/28/2013) C reat: 2.35 (01/28/2013) Na+: 145 (01/28/2013) K+: 4.1 (01/28/2013) Quentin Cardenas MD hfu : T he following medications were removed from the medication list: Lisinopril 40 Mg Tabs (Lisinopril) ..... 1 tablet by mouth daily Her updated medication list for this problem includes: Atenolol 25 Mg Tabs (Atenolol) ..... Daily Aspirin 325 Mg Tabs (Aspirin) ..... 1 tablet by mouth daily Amlodipine Besylate 10 Mg Tabs (Amlodipine besylate) ..... Daily & #13;BP today: 102/57 Prior BP: 108/68 (10/06/2012) H CT: 40.5 (01/28/2013) Platelets: 297 (01/28/2013) C reat: 2.35 (01/28/2013) Na+: 145 (01/28/2013) K+: 4.1 (01/28/2013) Nuclear Stress Findings: No scintigraphic evidence of lexiscan induced ischemia or wall motion abnormality. Left ventricular ejection fraction is 79% which is within normal limits. - [facility] (08/18/2012) Quentin Cardenas MD hfu : T he following medications were removed from the medication list: Lisinopril 40 Mg Tabs (Lisinopril) ..... 1 tablet by mouth daily Her updated medication list for this problem includes: Atenolol 25 Mg Tabs (Atenolol) ..... Daily Aspirin 325 Mg Tabs (Aspirin) ..... 1 tablet by mouth daily Lasix 40 Mg Tabs (Furosemide) ..... One tab daily Losartan Potassium 50 Mg Tabs (Losartan potassium) ..... Daily Amlodipine Besylate 10 Mg Tabs (Amlodipine besylate) ..... Daily BP today: 102/57 P rior BP: 108/68 (10/06/2012) Labs Reviewed: C reat: 2.35 (01/28/2013) Quentin Cardenas MD hfu : T he following medications were removed from the medication list: Lisinopril 40 Mg Tabs (Lisinopril) ..... 1 tablet by mouth daily Glipizide Tabs (Glipizide tabs) ..... 20mg daily H er updated medication list for this problem includes: Aspirin 325 Mg Tabs (Aspirin) ..... 1 tablet by mouth daily Glimepiride 1 Mg Tabs (Glimepiride) ..... One tab daily Losartan Potassium 50 Mg Tabs (Losartan potassium) ..... Daily BP today: 102/57 Prior BP: 108/68 (10/06/2012) Labs Reviewed: C reat: 2.35 (01/28/2013) Quentin Cardenas MD hfu : H er updated medication list for this problem includes: Lipitor 40 Mg Tabs (Atorvastatin calcium) ..... One tab. daily Trilipix 135 Mg Cpdr (Choline fenofibrate) ..... 1 capsule by mouth daily BP today: 102/57 Prior BP: 108/68 (10/06/2012) Quentin Cardenas MD hfu : T he following medications were removed from the medication list: Lisinopril 40 Mg Tabs (Lisinopril) ..... 1 tablet by mouth daily Her updated medication list for this problem includes: Atenolol 25 Mg Tabs (Atenolol) ..... Daily Aspirin 325 Mg Tabs (Aspirin) ..... 1 tablet by mouth daily Amlodipine Besylate 10 Mg Tabs (Amlodipine besylate) ..... Daily & #13;BP today: 102/57 Prior BP: 108/68 (10/06/2012) H CT: 40.5 (01/28/2013) Platelets: 297 (01/28/2013) C reat: 2.35 (01/28/2013) Na+: 145 (01/28/2013) K+: 4.1 (01/28/2013) Nuclear Stress Findings: No scintigraphic evidence of lexiscan induced ischemia or wall motion abnormality. Left ventricular ejection fraction is 79% which is within normal limits. - [facility] (08/18/2012) Quentin Cardenas MD hfu : T he following medications were removed from the medication list: Lisinopril 40 Mg Tabs (Lisinopril) ..... 1 tablet by mouth daily Her updated medication list for this problem includes: Atenolol 25 Mg Tabs (Atenolol) ..... Daily Aspirin 325 Mg Tabs (Aspirin) ..... 1 tablet by mouth daily Amlodipine Besylate 10 Mg Tabs (Amlodipine besylate) ..... Daily & #13;BP today: 102/57 Prior BP: 108/68 (10/06/2012) N uclear Stress Findings: No scintigraphic evidence of lexiscan induced ischemia or wall motion abnormality. Left ventricular ejection fraction is 79% which is within normal limits. - [facility] (08/18/2012) H CT: 40.5 (01/28/2013) Platelets: 297 (01/28/2013) C reat: 2.35 (01/28/2013) Na+: 145 (01/28/2013) K+: 4.1 (01/28/2013) O rders: S TR - Adenosine (56606) Quentin Cardenas MD hosp f/u : H er updated medication list for this problem includes: Atenolol 25 Mg Tabs (Atenolol) ..... Daily Aspirin 325 Mg Tabs (Aspirin) ..... 1 tablet by mouth daily Lisinopril 40 Mg Tabs (Lisinopril) ..... 1 tablet by mouth daily BP today: / Prior BP: 116/64 (12/24/2011) N uclear Stress Findings: No scintigraphic evidence of lexiscan induced ischemia or wall motion abnormality. Left ventricular ejection fraction is 79% which is within normal limits. - [facility] (08/18/2012) Quentin Cardenas MD hosp f/u : H er updated medication list for this problem includes: Atenolol 25 Mg Tabs (Atenolol) ..... Daily Aspirin 325 Mg Tabs (Aspirin) ..... 1 tablet by mouth daily Lasix 40 Mg Tabs (Furosemide) ..... One tab daily Lisinopril 40 Mg Tabs (Lisinopril) ..... 1 tablet by mouth daily Prior BP: 116/64 (12/24/2011) Quentin Cardenas MD hosp f/u : T he following medications were removed from the medication list: Metformin Hcl 500 Mg Tabs (Metformin hcl) ..... 1 tablet by mouth daily Her updated medication list for this problem includes: Aspirin 325 Mg Tabs (Aspirin) ..... 1 tablet by mouth daily Lisinopril 40 Mg Tabs (Lisinopril) ..... 1 tablet by mouth daily Glimepiride 1 Mg Tabs (Glimepiride) ..... One tab daily Glipizide Tabs (Glipizide tabs) ..... 20mg daily BP today: / Prior BP: 116/64 (12/24/2011) Quentin Cardenas MD hosp f/u : H er updated medication list for this problem includes: Lipitor 40 Mg Tabs (Atorvastatin calcium) ..... One tab. daily Trilipix 135 Mg Cpdr (Choline fenofibrate) ..... 1 capsule by mouth daily BP today: / Prior BP: 116/64 (12/24/2011) Quentin Cardenas MD hosp f/u : H er updated medication list for this problem includes: Atenolol 25 Mg Tabs (Atenolol) ..... Daily Aspirin 325 Mg Tabs (Aspirin) ..... 1 tablet by mouth daily Lisinopril 40 Mg Tabs (Lisinopril) ..... 1 tablet by mouth daily BP today: / Prior BP: 116/64 (12/24/2011) N uclear Stress Findings: No scintigraphic evidence of lexiscan induced ischemia or wall motion abnormality. Left ventricular ejection fraction is 79% which is within normal limits. - [facility] (08/18/2012) Quentin Cardenas MD 6 month follow-up: H er updated medication list for this problem includes: Atenolol 25 Mg Tabs (Atenolol) ..... Daily Aspirin 325 Mg Tabs (Aspirin) ..... 1 tablet by mouth daily Lisinopril 40 Mg Tabs (Lisinopril) ..... 1 tablet by mouth daily Orders: E KG (CPT-[id number]) BP today: 116/64 Prior BP: 131/71 (06/18/2011) N uclear Stress Findings: Normal myocardial perfusion imaging. Normal LV EF >70%. [facility] (12/30/2008) E chocardiogram: Very technical and limited study. Patient morbidly obese. Probably normal LV systolic function with an EF of 60%. Diastolic dysfunction. [facility] (09/26/2004) Quentin Cardenas MD 6 month follow-up: H er updated medication list for this problem includes: Atenolol 25 Mg Tabs (Atenolol) ..... Daily Aspirin 325 Mg Tabs (Aspirin) ..... 1 tablet by mouth daily Lasix 20 Mg Tabs (Furosemide) ..... 1 tablet by mouth daily Lisinopril 40 Mg Tabs (Lisinopril) ..... 1 tablet by mouth daily BP today: 116/64 P rior BP: 131/71 (06/18/2011) Quentin Cardenas MD 6 month follow-up: H er updated medication list for this problem includes: Aspirin 325 Mg Tabs (Aspirin) ..... 1 tablet by mouth daily Lisinopril 40 Mg Tabs (Lisinopril) ..... 1 tablet by mouth daily Glimepiride 1 Mg Tabs (Glimepiride) ..... One tab daily Metformin Hcl 500 Mg Tabs (Metformin hcl) ..... 1 tablet by mouth daily BP today: 116/64 Prior BP: 131/71 (06/18/2011) Quentin Cardenas MD 6 month follow-up: H er updated medication list for this problem includes: Lipitor 40 Mg Tabs (Atorvastatin calcium) ..... One tab. daily Trilipix 135 Mg Cpdr (Choline fenofibrate) ..... 1 capsule by mouth daily BP today: 116/64 Prior BP: 131/71 (06/18/2011) Quentin Cardenas MD 6 month follow-up: H er updated medication list for this problem includes: Atenolol 25 Mg Tabs (Atenolol) ..... Daily Aspirin 325 Mg Tabs (Aspirin) ..... 1 tablet by mouth daily Lisinopril 40 Mg Tabs (Lisinopril) ..... 1 tablet by mouth daily BP today: 116/64 Prior BP: 131/71 (06/18/2011) N uclear Stress Findings: Normal myocardial perfusion imaging. Normal LV EF >70%. [facility] (12/30/2008) E chocardiogram: Very technical and limited study. Patient morbidly obese. Probably normal LV systolic function with an EF of 60%. Diastolic dysfunction. [facility] (09/26/2004) Quentin Cardenas MD follow up: H er updated medication list for this problem includes: Atenolol 25 Mg Tabs (Atenolol) ..... Daily Aspirin 325 Mg Tabs (Aspirin) ..... 1 tablet by mouth daily Lisinopril 5 Mg Tabs (Lisinopril) ..... One tab. daily BP today: 131/71 Prior BP: 138/69 (12/04/2010) N uclear Stress Findings: Normal myocardial perfusion imaging. Normal LV EF >70%. [facility] (12/30/2008) E chocardiogram: Very technical and limited study. Patient morbidly obese. Probably normal LV systolic function with an EF of 60%. Diastolic dysfunction. [facility] (09/26/2004) Quentin Cardenas MD follow up: H er updated medication list for this problem includes: Atenolol 25 Mg Tabs (Atenolol) ..... Daily Aspirin 325 Mg Tabs (Aspirin) ..... 1 tablet by mouth daily Lasix 20 Mg Tabs (Furosemide) ..... 1 tablet by mouth daily Lisinopril 5 Mg Tabs (Lisinopril) ..... One tab. daily BP today: 131/71 P rior BP: 138/69 (12/04/2010) Quentin Cardenas MD follow up: H er updated medication list for this problem includes: Lipitor 40 Mg Tabs (Atorvastatin calcium) ..... One tab. daily Triglide 160 Mg Tabs (Fenofibrate) ..... 1 tablet by mouth daily BP today: 131/71 Prior BP: 138/69 (12/04/2010) Quentin Cardenas MD follow up: H er updated medication list for this problem includes: Atenolol 25 Mg Tabs (Atenolol) ..... Daily Aspirin 325 Mg Tabs (Aspirin) ..... 1 tablet by mouth daily Lisinopril 5 Mg Tabs (Lisinopril) ..... One tab. daily BP today: 131/71 Prior BP: 138/69 (12/04/2010) N uclear Stress Findings: Normal myocardial perfusion imaging. Normal LV EF >70%. [facility] (12/30/2008) E chocardiogram: Very technical and limited study. Patient morbidly obese. Probably normal LV systolic function with an EF of 60%. Diastolic dysfunction. [facility] (09/26/2004) Quentin Cardenas MD follow up: H er updated medication list for this problem includes: Atenolol 25 Mg Tabs (Atenolol) ..... Daily Aspirin 325 Mg Tabs (Aspirin) ..... 1 tablet by mouth daily Lisinopril 5 Mg Tabs (Lisinopril) ..... One tab. daily Orders: E KG (CPT-[id number]) BP today: 138/69 Prior BP: 133/78 (12/05/2009) N uclear Stress Findings: Normal myocardial perfusion imaging. Normal LV EF >70%. [facility] (12/30/2008) E chocardiogram: Very technical and limited study. Patient morbidly obese. Probably normal LV systolic function with an EF of 60%. Diastolic dysfunction. [facility] (09/26/2004) Quentin Cardenas MD follow up: H er updated medication list for this problem includes: Atenolol 25 Mg Tabs (Atenolol) ..... Daily Aspirin 325 Mg Tabs (Aspirin) ..... 1 tablet by mouth daily Lasix 20 Mg Tabs (Furosemide) ..... 1 tablet by mouth daily Lisinopril 5 Mg Tabs (Lisinopril) ..... One tab. daily BP today: 138/69 P rior BP: 133/78 (12/05/2009) Quentin Cardenas MD follow up: T he following medications were removed from the medication list: Metformin Hcl 500 Mg Tabs (Metformin hcl) ..... Daily Her updated medication list for this problem includes: Aspirin 325 Mg Tabs (Aspirin) ..... 1 tablet by mouth daily Lisinopril 5 Mg Tabs (Lisinopril) ..... One tab. daily BP today: 138/69 Prior BP: 133/78 (12/05/2009) Quentin Cardenas MD follow up: H er updated medication list for this problem includes: Lipitor 40 Mg Tabs (Atorvastatin calcium) ..... One tab. daily Triglide 160 Mg Tabs (Fenofibrate) ..... 1 tablet by mouth daily BP today: 138/69 Prior BP: 133/78 (12/05/2009) Quentin Cardenas MD follow up: H er updated medication list for this problem includes: Atenolol 25 Mg Tabs (Atenolol) ..... Daily Aspirin 325 Mg Tabs (Aspirin) ..... 1 tablet by mouth daily Lisinopril 5 Mg Tabs (Lisinopril) ..... One tab. daily BP today: 138/69 Prior BP: 133/78 (12/05/2009) N uclear Stress Findings: Normal myocardial perfusion imaging. Normal LV EF >70%. [facility] (12/30/2008) E chocardiogram: Very technical and limited study. Patient morbidly obese. Probably normal LV systolic function with an EF of 60%. Diastolic dysfunction. [facility] (09/26/2004) Quentin Cardenas MD f/u: H er updated medication list for this problem includes: Atenolol 25 Mg Tabs (Atenolol) ..... Daily Aspirin 325 Mg Tabs (Aspirin) ..... 1 tablet by mouth daily Lisinopril 5 Mg Tabs (Lisinopril) ..... One tab. daily Orders: E KG (CPT-[id number]) BP today: 133/78 Prior BP: 145/82 (11/01/2008) N uclear Stress Findings: Normal myocardial perfusion imaging. Normal LV EF >70%. [facility] (12/30/2008) E chocardiogram: Very technical and limited study. Patient morbidly obese. Probably normal LV systolic function with an EF of 60%. Diastolic dysfunction. [facility] (09/26/2004) Quentin Cardenas MD f/u: H er updated medication list for this problem includes: Atenolol 25 Mg Tabs (Atenolol) ..... Daily Aspirin 325 Mg Tabs (Aspirin) ..... 1 tablet by mouth daily Lasix 20 Mg Tabs (Furosemide) ..... 1 tablet by mouth daily Lisinopril 5 Mg Tabs (Lisinopril) ..... One tab. daily Orders: E KG (CPT-[id number]) BP today: 133/78 P rior BP: 145/82 (11/01/2008) Quentin Cardenas MD f/u: H er updated medication list for this problem includes: Metformin Hcl 500 Mg Tabs (Metformin hcl) ..... Daily Aspirin 325 Mg Tabs (Aspirin) ..... 1 tablet by mouth daily Lisinopril 5 Mg Tabs (Lisinopril) ..... One tab. daily BP today: 133/78 Prior BP: 145/82 (11/01/2008) Quentin Cardenas MD f/u: H er updated medication list for this problem includes: Lipitor 40 Mg Tabs (Atorvastatin calcium) ..... One tab. daily Triglide 160 Mg Tabs (Fenofibrate) ..... 1 tablet by mouth daily BP today: 133/78 Prior BP: 145/82 (11/01/2008) Quentin Cardenas MD f/u: H er updated medication list for this problem includes: Atenolol 25 Mg Tabs (Atenolol) ..... Daily Aspirin 325 Mg Tabs (Aspirin) ..... 1 tablet by mouth daily Lisinopril 5 Mg Tabs (Lisinopril) ..... One tab. daily BP today: 133/78 Prior BP: 145/82 (11/01/2008) N uclear Stress Findings: Normal myocardial perfusion imaging. Normal LV EF >70%. [facility] (12/30/2008) E chocardiogram: Very technical and limited study. Patient morbidly obese. Probably normal LV systolic function with an EF of 60%. Diastolic dysfunction. [facility] (09/26/2004) Quentin Cardenas MD yearly [id number] ter fxd: H er updated medication list for this problem includes: Atenolol 25 Mg Tabs (Atenolol) ..... Daily Aspirin 325 Mg Tabs (Aspirin) ..... 1 tablet by mouth daily Orders: E KG (CPT-03662) BP today: 145/82 Prior BP: / () N uclear Stress Findings: Normal resting EKG, rate 92bpm. No ST segment depression to suggest ischemia. Normal myocardial perfusion without infarct or ischemia. Normal gated study with LVEF 53%. [facility] (09/26/2004) E chocardiogram: Very technical and limited study. Patient morbidly obese. Probably normal LV systolic function with an EF of 60%. Diastolic dysfunction. [facility] (09/26/2004) Quentin Cardenas MD yearly [id number] ter fxd: H er updated medication list for this problem includes: Atenolol 25 Mg Tabs (Atenolol) ..... Daily Aspirin 325 Mg Tabs (Aspirin) ..... 1 tablet by mouth daily Lasix 20 Mg Tabs (Furosemide) ..... 1 tablet by mouth daily BP today: 145/82 Quentin Cardenas MD yearly [id number] ter fxd: H er updated medication list for this problem includes: Metformin Hcl 500 Mg Tabs (Metformin hcl) ..... Daily Aspirin 325 Mg Tabs (Aspirin) ..... 1 tablet by mouth daily Quentin Cardenas MD yearly [id number] ter fxd: T he following medications were removed from the medication list: Tricor 145 Mg Tabs (Fenofibrate) ..... 1 q hs Her updated medication list for this problem includes: Lipitor 10 Mg Tabs (Atorvastatin calcium) ..... Daily Triglide 160 Mg Tabs (Fenofibrate) ..... 1 tablet by mouth daily BP today: 145/82 Prior BP: / () Quentin Cardenas MD yearly srcrpv-xr-dta ter fxd: H er updated medication list for this problem includes: Atenolol 25 Mg Tabs (Atenolol) ..... Daily Aspirin 325 Mg Tabs (Aspirin) ..... 1 tablet by mouth daily BP today: 145/82 Prior BP: / () N uclear Stress Findings: Normal resting EKG, rate 92bpm. No ST segment depression to suggest ischemia. Normal myocardial perfusion without infarct or ischemia. Normal gated study with LVEF 53%. [facility] (09/26/2004) E chocardiogram: Very technical and limited study. Patient morbidly obese. Probably normal LV systolic function with an EF of 60%. Diastolic dysfunction. [facility] (09/26/2004) Quentin Cardenas MD Date Name PROTHROMBIN TIME WIT H INR BASIC METABOLIC PANE L W/EGFR CBC (INCLUDES DIFF/P LT) Partial Thromboplast in Time, Activated CT Chest without con trast ABLATION w/ Anesthes ia Monitor - Telemetry (Mobile Cardiac) Stress Regadenoson Complete Echo CT Chest without con trast CT Cardiac with cont rast (Pre-Ablation) COVID19 nasal swab ( LC) Partial Thromboplast in Time, Activated BASIC METABOLIC PANE L W/EGFR CBC (INCLUDES DIFF/P LT) PROTHROMBIN TIME WIT H INR Creatinine, Serum CT Cardiac with cont rast (Pre-Ablation) EP Study w/anesthesi a ABLATION w/ Anesthes ia Complete Echo DLCO - 80833 FRC - 93502 FVC - 41006 Sleep Study Home Mobile Cardiac Tele Complete Echo URINALYSIS, COMPLETE PROTHROMBIN TIME WIT H INR Partial Thromboplast in Time, Activated CBC (INCLUDES DIFF/P LT) COMPREHENSIVE METABO LIC PANEL, W/EGFR Device Removal - [facility] V BASIC METABOLIC PANE L W/EGFR CBC (INCLUDES DIFF/P LT) PARTIAL THROMBOPLAST IN TIME, ACTIVATED EP Study w/anesthesi a DLCO - 34300 FRC - 46326 FVC - 25734 Complete Echo Complete Echo Full PFT STR - Adenosine HISTORY OF PROCEDURES Procedure Date Procedure Name Provider Procedure Notes S tatus Complex e/m visit ad d on Quentin Cardenas MD completed Schedule Followup Jorge Luis hoff MD [address] ALVAREZ completed EKG Jorge Luis de los santos MD completed venous ablation, one vein Jorge Luis Alvarez MD completed venous ablation, subsequent veins Jorge Luis Alvarez MD completed EKG Jorge Luis de los santos MD completed EKG Quentin Cardenas MD complete d EKG Jorge Luis de los santos MD completed EKG Quentin Cardenas MD complete d EKG Quentin Cardenas MD complete d EKG Quentin Cardenas MD complete d EKG Jorge Luis de los santos MD completed FVC / MVV - 42623 Quentin Cardenas MD c ompleted BLOOD COUNT HEMOGLOBIN Quentin Cardenas MD completed FRC - 62943 Quentin Cardenas MD complet ed SpO2 w/o 6min walk/titration Quentin Cardenas MD completed DLCO - 29499 Quentin Cardenas MD comple arcenio Mobile Cardiac Telemetry - Tech Quentin Cardenas MD completed Mobile Cardiac Telemetry - Prof Quentin Cardenas MD completed Schedule Followup Jorge Luis hoff MD in 1 mo completed EKG Jorge Luis de los santos MD completed EKG Quentin Cardenas MD complete d SNOMED-CT: 130739244958885 Current Medications Documented Quentin Cardenas MD completed SNOMED-CT: 514685390204544 Current Medications Documented Quentin Cardenas MD completed SNOMED-CT: 932302365084845 Current Medications Documented Quentin Cardenas MD completed Loop Recorder Interrogation, Remote Russell Mock MD INTERROGATION EVALUATION REMOTE </30 D ILR SYS completed ICM Interrogation, Remote (Tech) Russell Mock MD INTERROGATION EVAL REMOTE </30 D TECH REVIEW completed SNOMED-CT: 283911080598003 Current Medications Documented Quentin Cardenas MD completed Loop Recorder Interrogation, Remote Russell Mock MD INTERROGATION EVALUATION REMOTE </30 D ILR SYS completed ICM Interrogation, Remote (Tech) Russell Mock MD INTERROGATION EVAL REMOTE </30 D TECH REVIEW completed Loop Recorder Interrogation, Remote Russell Mock MD INTERROGATION EVALUATION REMOTE </30 D ILR SYS completed ICM Interrogation, Remote (Tech) Russell Mock MD INTERROGATION EVAL REMOTE </30 D TECH REVIEW completed Loop Recorder Interrogation, Remote Quentin Cardenas MD INTERROGATION EVALUATION REMOTE </30 D ILR SYS completed ICM Interrogation, Remote (Tech) Quentin Cardenas MD INTERROGATION EVAL REMOTE </30 D TECH REVIEW completed SNOMED-CT: 549424037700173 Current Medications Documented Quentin Cardenas MD completed Loop Recorder Interrogation, Remote Quentin Cardenas MD INTERROGATION EVALUATION REMOTE </30 D ILR SYS completed ICM Interrogation, Remote (Tech) Quentin Cardenas MD INTERROGATION EVAL REMOTE </30 D TECH REVIEW completed Loop Recorder Interrogation, Remote Quentin Cardenas MD INTERROGATION EVALUATION REMOTE </30 D ILR SYS completed ICM Interrogation, Remote (Tech) Quentin Cardenas MD INTERROGATION EVAL REMOTE </30 D TECH REVIEW completed EKG Jorge Luis de los santos MD completed SNOMED-CT: 917130590012309 Current Medications Documented Jorge Luis Alvarez MD completed SNOMED-CT: 26730633 Physical Exam, Performed: Pulse Exam of Foot Jorge Luis Alvarez MD completed EKG Jorge Luis de los santos MD completed SNOMED-CT: 584556169421225 Current Medications Documented Jorge Luis Alvarez MD completed Loop Recorder Interrogation, Remote Quentin Cardenas MD INTERROGATION EVALUATION REMOTE </30 D ILR SYS completed ICM Interrogation, Remote (Tech) Quentin Cardenas MD INTERROGATION EVAL REMOTE </30 D TECH REVIEW completed INR Strip Jorge Luis de los santos MD completed INR Strip Jorge Luis de los santos MD completed BLOOD COUNT HEMOGLOBIN Jorge Luis wells MD completed FVC - 95287 Jorge Luis de los santos MD completed FRC - 47430 Jorge Luis de los santos MD completed DLCO - 99375 Jorge Luis de los santos MD completed SNOMED-CT: 80999127 Physical Exam, Performed: Pulse Exam of Foot Jorge Luis Alvarez MD completed EKG Jorge Luis de los santos MD completed SNOMED-CT: 489785167397132 Current Medications Documented Jorge Luis Alvarez MD completed SNOMED-CT: 418391755576610 Current Medications Documented Quentin Cardenas MD completed SNOMED-CT: 736857527023149 Current Medications Documented Quentin Cardenas MD completed Stress EKG Jorge Luis de los santos MD completed Regadenoson, 4 units Quentin Cardenas MD completed Cardiolite, 2 units Quentin Cardenas MD completed SPECT Images Roman Pastor MD complet ed EKG Quentin Cardenas MD complete d SNOMED-CT: 552733170685278 Current Medications Documented Quentin Cardenas MD completed EKG Quentin Cardenas MD complete d DLCO - 02854 Quentin Cardenas MD comple arcenio FRC - 09348 Quentin Cardenas MD complet ed FVC - 12731 Quentin Cardenas MD complet ed ePrescribe - Check t his box if eRx is used Quentin Cardenas MD completed EKG Quentin Cardenas MD complete d EKG Quentin Cardenas MD complete d EKG Quentin Cardenas MD complete d EKG Quentin Cardenas MD complete d EKG Quentin Cardenas MD complete d
[2024-11-05 14:06] LABS: Influenza A QL RT-PCR Negative (Negative); Influenza B QL RT-PCR Negative (Negative); RSV RNA, RT-PCR Negative (Negative); SARS-CoV-2 RNA PCR Negative (Negative)
== END 2024-11-05 12:55 | disposition home or self-care (01) ==
LOC: ANHLAB 13:00
PROVIDERS: PCP Internal Medicine Infectious Disease; Visit Provider Internal Medicine Infectious Disease
DX: R09.89 Other specified symptoms and signs involving the circulatory and respiratory systems (principal); Z20.822 Contact with and (suspected) exposure to COVID-19
CPT/HCPCS: 87637

== ENCOUNTER 2024-11-08 11:52 | Outpatient (CLI) | payer MEDICARE, MEDICAID, SELFPAY ==
--- NOTE | ~2024-11-08 | XR_ITS ---
XR chest 2V 11/08/2024 12:15 Indication: Upper respiratory symptoms. Procedure: 2 view chest Comparison: Comparison to multiple prior studies sequentially, with oldest reviewed study dated 05/11. Findings: There are bilateral subclavian stents. Heart size normal. There is atherosclerosis of the a riya. No focal air space disease, pulmonary edema, pleural effusion or suspected pneumothorax. Impression: 1: No acute cardiopulmonary disease. Reviewed, dictated and finalized at location A. Impression: 1: No acute cardiopulmonary disease.
--- OUTSIDE RECORDS SUMMARY | 2024-11-08 12:06 | XMS_ITS | Clinical Summary ---
Author Organization [facility] Address [address] [facility] [place] [address] Phone Care Team Providers Care Clinical Assistant Name Role Phone Pierre Bergeron MD Primary [...] RENVELA 800 MG Tablet 6 Active B Njthzdb-Y-Zbwrc Acid (B COMPLEX-VITAMIN C-FOLIC ACID) 1 MG [...] Comments Blood Pressure 108/52 06/24/2023 11:28 AM GRE TUTOR Pulse 69 06/24/2023 11:28 AM GRE TUTOR Temperature 37 C (98.6 F) 06/24/2023 11:28 AM GRE TUTOR Respiratory Rate 20 06/24/2023 11:28 AM GRE TUTOR Oxygen Saturation 97% 06/24/2023 11:28 AM GRE TUTOR Inhaled Oxygen Concentration - - Weight 99.8 kg (220 lb 1.6 oz) 06/24/2023 11:28 AM GRE TUTOR Height 142.2 cm (4' 8) 06/24/2023 11:28 AM GRE TUTOR Body Mass Index 49.35 06/24/2023 11:28 AM GRE TUTOR Plan of Treatment Health Maintenance Due Date [...] MEDICAID [place] MEDICARE C [employer] Care Teams Clinical Assistant Relationship Specialty Start Date End Date Pierre Bergeron MD [address] [place] [address] PCP - General Internal Medicine 11/03/15 Surendra Torres MD [address] [place] [address] Consulting Physician Pulmonary Disease 01/30/23
--- OUTSIDE RECORDS SUMMARY | 2024-11-08 12:06 | XMS_ITS | Clinical Summary ---
Author Organization [facility] Home Care [facility] Address [address] [place] [address] Care Team Providers Care Manager Immunology Name Role Phone Pierre Bergeron MD Primary Care Provider Mattie Oliver MD Unavailable [phone] Jose David Simpson MD Unavailable Russell Mock MD Unavailable [phone] Ramon Pastor MD Unavailable [phone] Lobito Melendez MD Unavailable [phone] Theresa Godinez MD, Quentin Roe Unavailable [...] 12/14/2023 Assessment & Plan (06/29/2024 11:57 AM JIG HAND): H/o Osteoporosis Chronic, unknown status We will [...] (04/03/2022): Added automatically from request for surgery [id number] Sternoclavicular joint pain, right 04/03/2022 Overview (05/07/2022): Added automatically from request for surgery [id number] Physical deconditioning 03/28/2022 Vulvar carcinoma 03/26/2022 Cor pulmonale 03/22/2022 S/P right colectomy 03/01/2022 EDWINA III (vulvar intraepithelial neoplasia III) 0 01/31/2022 Overview (01/31/2022): Added automatically from request for surgery [id number] Vulvar cancer 01/30/2022 Malignant neoplasm of ascending colon 01/15/2022 Overview (01/15/2022): Added automatically from request for surgery [id number] Complication of arteriovenous dialysis fistula 0 01/15/2022 Herpetic gingivostomatitis 01/15/2022 Upper GI bleed 12/26/2021 SVT (supraventricular tachycardia) 12/18/2021 Overview (12/18/2021): Added automatically from request for surgery [id number] Inflammation of sacroiliac joint 08/30/2021 Hyperkalemia 06/20/2021 [...] - 08/25/2024 11:59 PM CDT Hospital Encounter [facility] [address] [place] [address] Liver disease, unspecified Discharge Disposition: Discharge to home or self care from Last 3 Months Immunizations Immunization Administration Dates Next Due INFLUENZA [id number] 2015 Influenza, Quadrivalent, Spl it, Intramuscular 03/08/2021,02/29/2020,03/09/2018,03/10,03/09/2016 [...] Covid-19 06/2021 ESRD (end stage renal disease) ([facility]) 04/11/2016 Dialysis patient Infection of AV graft for dialysis 06/07/2019 GERD (gastroesophageal reflux disease) Type 2 diabetes mellitus (HCC) Malignant neoplasm of ascending colon (HCC) 2021 Vulvar cancer (HCC) 2021 Acute respiratory failure requiring reintubation (HCC) with COPD (chronic obstructive pulmonary disease) ([facility] C) Asthma Depression Family History Medical History Relation Name Comments Cancer Father Hypertension Father Cancer Mother ict customer support officer Colon cancer Sister Anesthesia problems Neg Hx [...] 12/05/2022 How often do you attend chur Gratafy or zoroastrianism services? Never 12/05/2022 Do you belong to any clubs o r organizations such as cheondoism groups, unions, fraternal or athletic groups, or [...] staff should administer the PHQ-9) 0 11/27/2023 [facility] of Occupat ional Health - Occupational Stress [...] place to sleep or slept in a fdc (including now)? No 12/05/2022 Personal Safety Answer [...] on file Legal Sex Female 7:11 PM JIG HAND Gender Identity Not on file Sexual Orientation Not on file Occupation Industry Job Start Date Job End Date On disability due to ESRD on HD. 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 Not on file Not on file Not [...] Comments Blood Pressure 135/53 08/03/2024 9:13 AM JIG HAND Pulse 91 08/03/2024 9:13 AM JIG HAND Temperature 37.1 C (98.8 F) 08/03/2024 9:13 AM JIG HAND Respiratory Rate 19 08/03/2024 9:13 AM JIG HAND Oxygen Saturation 95% 08/03/2024 9:13 AM JIG HAND Inhaled Oxygen Concentration - - Weight 101.1 kg (222 lb 14.4 oz) 08/03/2024 9:13 AM JIG HAND Height 142.2 cm (4' 8) 08/03/2024 9:13 AM JIG HAND Body Mass Index 49.97 08/03/2024 9:13 AM JIG HAND Plan of Treatment Health Maintenance Due Date [...] history exists Medical Devices Implanted Type Area Accounts Payable Administrator Device Identifier Shelf Expiration Date Model / Serial / Lot Endoprosthesis- 03/25/2019 Implanted:Qty: 1 on 03/25/2019 Endoprosthesis Left: [employer] Stent-02/12/2022 Implanted:Qty: 1 on 02/12/2022 Stent Right: Subclavian [place] [id number] / [employer] Device Clsr Perclose Prostyle Sut-Mediatd Closure-Repair Sys [id number] - [id number] Implanted:Qty: 1 on 12/03/2022 by Lobito Melendez MD at [facility] Vascular [id number] / / [employer] Percutaneous Transcatheter Amplatzer Amulet 18mm [id number] - [id number] Implanted:Qty: 1 on 12/03/2022 by Lobito Melendez MD at [facility] Vascular 03/08/2027 [id number] / / [id number] Procedures Procedure Name Priority Date/Time Associated Diagnosis Comments MRI ABDOMEN LIVER W WO CONTRAST Schedule Routine, Read Routine (OP Routine) 08/25/2024 8:52 AM CDT Liver disease, unspecified EGFR Routine 07/29/2024 8:36 AM JIG HAND Age-related osteoporosis without current pathological fracture HEPATITIS PANEL, ACUTE Routine 01/02/2024 8:45 AM CDT COLONOSCOPY 03/11/2023 7:38 AM CDT HEMOGLOBIN A1C Routine 11/28/2022 2:54 PM CDT Encounter for preadmission testing Type 2 diabetes mellitus with chronic kidney disease on chronic dialysis, without long-term current use of insulin (HCC) LIPID PANEL Routine 05/13/2022 8:03 AM JIG HAND from Last 3 Months or Most Recently [...] deposition. Unchanged hemangioma. Adrenals: Normal Kidneys: Atrophic oneida kidneys with scattered cysts. No suspicious renal [...] deposition. Unchanged hemangioma. Adrenals: Normal Kidneys: Atrophic one[place] kidneys with scattered cysts. No suspicious renal [...] Result * (ABNORMAL) eGFR (07/29/2024 8:36 AM JIG HAND) eGFR 4(L) >=60 mL/min/1. 73 m2 Comment: [...] last reviewed 2021. Blood 07/29/2024 8:36 AM JIG HAND 07/29/2024 8:36 AM JIG HAND us Bradley Laureano MD LAB BLOOD ORDERABLE S Final Result [facility] [address] [address] [place] [address] * Hepatitis panel, acute Blood (01/02/2024 8:45 AM CDT) Hep A IgM Nonreactive Nonreactive Comment: Interpretive Data: If Hep A IgM Ab is reported as Equivocal, a new sample should be drawn in two weeks for testing. Current interpretive data was last revised on 19. Hep B core IgM Nonreactive Nonreactive [facility] Comment: Interpretive Data If HepB Core IgM Ab is reported as Equivocal, a new sample should be drawn in two weeks for testing. Current interpretive data was last revised on 19. Hep C Ab Nonreactive Nonreactive [facility] Comment: Interpretive Data Nonreactive: Antibodies to [...] revised on 2019. HepBsAg Nonreactive Nonreactive [facility] Blood 01/02/2024 8:45 AM CDT 01/02/2024 8:48 AM CDT Ramon Pastor MD LAB MICROBIOLOGY - GENERAL ORD ERABLES Final Result [facility] [address] [place] [address] * COLONOSCOPY (03/11/2023 7:38 AM CDT) Anatomical Region Laterality Modality Other Narrative Procedure Note Julio C Saavedra MD - 03/11/2023 7:38 AM CDT - [facility] Patient Name: Daniel Rivera Procedure [...] (Anesthesia Staff), Theodora Olivera RN, Amor Mcdonald, Field Marketing Representative Referring MD: Pierre Bergeron MD Medicines: Monitored [...] intestine K64.8, Other hemorrhoids CPT copyright 2020 [employer]. All rights reserved. The codes documented in this report are preliminary and upon manager portable reviewmay be revised to meet current compliance [...] and children were not included. (Diabetes Care 31:4890-1391, 2008). The eAG is not equivalent to a fasting glucose. Blood 11/28/2022 2:54 PM CDT 11/28/2022 4:09 PM CDT Lobito Melendez MD LAB BLOOD [place] [address] [address] Department of Laboratories [place], [place] [id number] * (ABNORMAL) Lipid panel (05/13/2022 8:03 AM JIG HAND) Pathologist [facility] Cholesterol 76 30 - 199 mg/dL [place] [...] 3 [place] Blood 05/13/2022 8:03 AM JIG HAND 05/13/2022 8:03 AM JIG HAND Anika Machado DO LAB [place] [address] [address] Department [place] [address] from Last 3 Months or Most Recently Relevant to Health Maintenance Insurance IDPA [facility] MEDICARE ADVANTAGE [facility] MEDICARE ADVANTAGE IDRI [facility] MEDICARE ADVANTAGE [facility] MED[facility] Address: [address] [address] [place] [address] Advance Directives For more information, please contact: [phone] * Full Code (Latest Code Status on [...] 3:19 PM 04/03/2022 1:35 PM Care Teams Manager Immunology Relationship Specialty [place] [address] [place] [address] PCP - General 06/20/21 [place] [address] [address] [place], [place] [id number] Consulting Physician Nephrology 06/24/21 [place] [address] [facility] [address] [place] [address] Consulting Physician Pulmonary Disease 06/24/21 Russell Mock MD [address] [place] [address] Consulting Physician Cardiology 06/24/21 Ramon Pastor MD [address] [place] [address] Consulting Physician Nephrology 01/03/22 Lobito Melendez MD [address] [place] [address] Consulting Physician Interventional Cardiology 01/03/22 Quentin Cardenas Jr., MD [address] [place] [address] Consulting Physician Cardiovascular Disease 05/24/22 Elva Kurtz MD [address] [facility] [id number] [place] [address] Consulting Physician Gynecologic Oncology 05/24/22 Jorge Luis Alvarez MD [address] [place] [address] Consulting Physician Cardiology 01/02/24
--- OUTSIDE RECORDS SUMMARY | 2024-11-08 12:06 | XMS_ITS ---
Author Organization [facility] Home Care [facility] Address [address] [place] [address] Care Team Providers Care Senior C Software Engineer Name Role Phone Pierre Bergeron MD Primary Care Provider Mattie Oliver MD Unavailable [phone] Jose David Simpson MD Unavailable Russell Mock MD Unavailable [phone] Ramon Pastor MD Unavailable [phone] Lobito Melendez MD Unavailable [phone] Theresa Godinez MD, Quentin Roe Unavailable Elva Kurtz MD Unavailable Jorge Luis Alvarez MD Unavailable Active Problems Problem Noted Date Diagnosed Date Type 2 diabetes mellitus wit h hyperglycemia, without long-term current use of insulin 06/29/2024 Paroxysmal SVT (supraventricular tachycardia) Age-related osteoporosis wit hout current pathological fracture 12/14/2023 Assessment & Plan (06/29/2024 11:57 AM GLOBAL ACCOUNT EXECUTIVE): H/o Osteoporosis Chronic, unknown status We will [...] (04/03/2022): Added automatically from request for surgery [id number] Sternoclavicular joint pain, right 04/03/2022 Overview (05/07/2022): Added automatically from request for surgery [id number] Physical deconditioning 03/28/2022 Vulvar carcinoma 03/26/2022 Cor pulmonale 03/22/2022 S/P right colectomy 03/01/2022 EDWINA III (vulvar intraepithelial neoplasia III) 0 01/31/2022 Overview (01/31/2022): Added automatically from request for surgery [id number] Vulvar cancer 01/30/2022 Malignant neoplasm of ascending colon 01/15/2022 Overview (01/15/2022): Added automatically from request for surgery [id number] Complication of arteriovenous dialysis fistula 0 01/15/2022 Herpetic gingivostomatitis 01/15/2022 Upper GI bleed 12/26/2021 SVT (supraventricular tachycardia) 12/18/2021 Overview (12/18/2021): Added automatically from request for surgery [id number] Inflammation of sacroiliac joint 08/30/2021 Hyperkalemia 06/20/2021 [...]
--- OUTSIDE RECORDS SUMMARY | 2024-11-08 12:06 | XMS_ITS | Encounter Summary ---
Author Organization [facility] Healthcare Address [address] [place] [address] Care Team Providers Care Lining Marker Name Role Phone Pierre Bergeron MD Primary Care Provider Mattie Oliver MD Unavailable [phone] Jose David Simpson MD Unavailable Russell Mock MD Unavailable [phone] Ramon Pastor MD Unavailable [phone] Lobito Melendez MD Unavailable [phone] Theresa Godinez MD, Quentin Roe Unavailable Elva Kurtz MD Unavailable [phone] Jorge Luis Alvarez MD Unavailable Encounter Details Date Type Department Care Team (Late st Contact Info) Description 03/28/2022 Telephone [facility] Physical Medicine and Rehabilitation [address] [place] [address] Kaylan Sinha, BROTH MIXER Social History Tobacco Use Types Packs/Day Years [...] often do you attend chur ch or denominational services? Never 03/29/2022 Do you belong to any clubs o r organizations such as restorationist groups, unions, fraternal or athletic groups, or [...] Recorded Patient Health Questionnaire-2 Score 1 03/29/2022 [facility] - [...] place to sleep or slept in a usp (including now)? 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 Not on file Not on file Not [...] 1 03/29/2022 9:41 AM Lily Dominguez , TROLLEY CAR MECHANIC * If you checked off any problems on this questionnaire so far, Question Answer Date of Assessment Author How difficult have these problems made it for you to do your work, take care of things at home, or get along with other people? Somewhat difficult 03/29/2022 9:41 AM Lily Dominguez , TROLLEY CAR MECHANIC * Over the past 2 weeks, how often have you been bothered by any of the following problems? Question Answer Date of Assessment Author Little interest or pleasure in doing things Not at all 03/29/2022 9:41 AM Poonam Dominguez, TROLLEY CAR MECHANIC Feeling down, depressed, or hopeless Several days 03/29/2022 9:41 AM Lily Dominguez , TROLLEY CAR MECHANIC Trouble falling or staying asleep, or sleeping too much More than half the days 03/29/2022 9:41 AM Lily Dominguez, TROLLEY CAR MECHANIC Feeling tired or having little energy More than half the days 03/29/2022 9:41 AM Lily Dominguez, TROLLEY CAR MECHANIC Poor appetite or overeating Several days 03/29/2022 9:41 AM Lily Dominguez , TROLLEY CAR MECHANIC Feeling bad about yourself - or that you are a failure or have let yourself or your family down Not at all 03/29/2022 9:41 AM Lily Dominguez , TROLLEY CAR MECHANIC Trouble concentrating on things, such as reading the newspaper or watching television Not at all 03/29/2022 9:41 AM Lily Dominguez , TROLLEY CAR MECHANIC Moving or speaking so slowly that other people could have noticed? Or the opposite - being so fidgety or restless that you have been moving around a lot more than usual. Not at all 03/29/2022 9:41 AM Lily Dominguez , TROLLEY CAR MECHANIC Thoughts that you would be better off or hurting yourself in some way Not at all 03/29/2022 9:41 AM Lily Dominguez , TROLLEY CAR MECHANIC Patient Health Questionnaire-9 Score 6 03/29/2022 9:41 AM Lily Dominguez, REGINALD documented as of this encounter Miscellaneous Notes * Pre-Admission Screening - Kaylan Sinha SLP - 03/28/2022 1:40 PM CDT [facility] Physical Medicine and Rehabilitation Preadmission Screening Reason [...] level of care. Patient is currently at [facility] . The patient is being referred and [...] Payor Source: Primary: Medicare A&B Secondary:Policy number: [id number] Case discussed with Dr. Schwartz on 03/28/22 [...] Diagnosis Date Acute respiratory failure requiring reintubation ([facility] ([facility]) with Arthritis Atrial fibrillation ([facility] ([facility]) CHF (congestive heart failure) ([facility] ([facility]) CKD (chronic kidney disease) Coronary artery disease COVID-19 06/2021 Diabetes mellitus ([facility]) Dialysis patient ([facility] ([facility]) ESRD (end stage renal disease) ([facility] ([facility]) 04/11/2016 GERD (gastroesophageal reflux disease) History of cardiac radiofrequency ablation x2 Hyperlipidemia Hypertension Infection of AV graft for dialysis ([facility] ([facility]) 06/07/2019 Malignant neoplasm of ascending colon ([facility] ([facility]) 2021 Morbidly obese ([facility]) ([facility]) 06/20/2021 Sleep apnea SVT (supraventricular tachycardia) ([facility] ([facility]) Type 2 diabetes mellitus ([facility]) Vulvar cancer ([facility] ([facility]) 2021 Past Surgical History: Past Surgical History: [...] of Binge Drinking: Never Patient's Preferred Language: Slovak Cultural Requests During Hospitalization: none conveyed Acute [...] RECOMMENDATION: 1. End-stage renal disease: On HD [facility] Dialysis center is [facility] Plan for HD today with 2L UF and continue as per [facility] schedule - Dry weight 98.5 kg - [...] on 02/21/22. She receives her care at [facility]. #Atrial fibrillation Known history of atrial [...] made arrangements for her to d/c to [facility] for continued therapy. 03/01/22-03/15/22 PRIOR ADMISSION [...] Date admitted to acute: 03/21/22 Precautions/Restrictions: Falls [place] Suicide Severity Rating Scale: Allergies: Allergies Allergen [...] tablet 10 mg 10 mg oral Nakita Carvajal MD 10 mg at 03/28/22 0853 [START ON 03/29/2022] mumvfbiqsee-ekkzgawrv-mrxmltys (TRELEGY ELLIPTA) 100-62.5-25 mcg inhaler 1 puff 1 puff inhalation Daily Luc Mckeon MD gabapentin (NEURONTIN) capsule 100 mg 100 mg oral TID Nakita Huang MD 100 mg at 853 heparin 5,000 unit/mL injection 5,000 Units 5,000 Units subcutaneous Q[facility]H [facility] Nakita Huang MD 5,000 Units at 03/28/22 [...] mL intra-catheter PRN Nakita Huang MD [DISCONTINUED] fftpepaubio-mizikdzqc-upanyhvw (TRELEGY ELLIPTA) 100-62.5-25 mcg inhaler 1 puff [...] A ambulation 10ft (03/28/2022 1:32 PM) Cognition/Communication/Swallowing: BROTH MIXER Cognition: wfl (03/28/2022 1:32 PM) BROTH MIXER Communication: wfl (03/28/2022 1:32 PM) BROTH MIXER Swallowing: N/A (03/01/2022 12:24 PM) Conditions requiring [...] by a provider, Intense PT/OT/SP, Access to Cylinder Handler physicians, Dialysis (PD or HD), Bowel Program [...] the intensive Inpatient rehabilitation program offered at [facility] . documented in this encounter Plan of Treatment Not on file documented as of this encounter Visit Diagnoses Not on filedocumented in this encounter Care Teams Lining Marker Relationship Specialty Start Date End Date Pirere Bergeron MD [address] [place] [id number] PCP - General 06/20/21 [place] [address] [address] [place], [place] [id number] Consulting Physician Nephrology 06/24/21 [place] [address] [facility] [address] [place] [address] Consulting Physician Pulmonary Disease 06/24/21 Russell Mock MD [address] [place] [address] Consulting Physician Cardiology 06/24/21 Ramon Pastor MD [address] [place] [address] Consulting Physician Nephrology 01/03/22 Lobito Melendez MD [address] [place] [address] Consulting Physician Interventional Cardiology 01/03/22 Quentin Cardenas Jr., MD [address] [place] [address] Consulting Physician Cardiovascular Disease 05/24/22 Elva Kurtz MD [address] [facility] [id number] [place], [place] [id number] Consulting Physician Gynecologic Oncology 05/24/22 Jorge Luis Alvarez MD [address] [place] [address] Consulting Physician Cardiology 01/02/24 documented as of this encounter
--- OUTSIDE RECORDS SUMMARY | 2024-11-08 12:06 | XMS_ITS | Encounter Summary ---
Author Organization [facility] Address [address] [place] [address] Care Team Providers Care Professor Of Biostatistics Name Role Phone Pierre Bergeron MD Primary Care Provider Encounter Details Date Type Department Care Team (Late Contact Info) Description 11/15/2013 [facility] Out[facility] Visit [facility]TERNAL [facility] [place] [address] [facility] [address] [place] [id number] Social History Tobacco Use Types Packs/Day [...] Department Care Team (Late Contact Info) Description 11/15/2024 9:30 AM CDT Appointment [facility] [address] [facility], [address] [place] [address] [place] [address] [facility] [address] [place] [address] [place] [address] [facility] [address] [place] [address] 11/18/2024 12:00 PM CDT Office Visit [facility] [address] [facility] [place] [address] Jennifer Leonard PA-C [address] [place] [address] documented as of this encounter Visit Diagnoses Not on filedocumented in this encounter Additional Health Concerns Infection Onset Date Last Indicated Resolved Time 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
--- OUTSIDE RECORDS SUMMARY | 2024-11-08 12:06 | XMS_ITS ---
Author Organization [facility] Home Care [facility] Address [address] [place] [address] Care Team Providers Care Drapery Estimator Name Role Phone Pierre Bergeron MD Primary Care Provider Mattie Oliver MD Unavailable [phone] Jose David Simpson MD Unavailable [phone] Russell Mock MD Unavailable [phone] Ramon Pastor MD Unavailable [phone] Lobito Melendez MD Unavailable [phone] Theresa Godinez MD, Quentin Roe Unavailable Elva Kurtz MD Unavailable Jorge Luis Alvarez MD Unavailable Dialysis Access [...] disease, unspecified EGFR Routine 07/29/2024 8:36 AM MENTAL HEALTH SPECIALIST Age-related osteoporosis without current pathological fracture HEPATITIS PANEL, ACUTE Routine 01/02/2024 8:45 AM CDT COLONOSCOPY 03/11/2023 7:38 AM CDT HEMOGLOBIN A1C Routine 11/28/2022 2:54 PM CDT Encounter for preadmission testing Type 2 diabetes mellitus with chronic kidney disease on chronic dialysis, without long-term current use of insulin (HCC) LIPID PANEL Routine 05/13/2022 8:03 AM MENTAL HEALTH SPECIALIST from Last 3 Months or Most [...] 12/14/2023 Assessment & Plan (06/29/2024 11:57 AM MENTAL HEALTH SPECIALIST): H/o Osteoporosis Chronic, unknown status We [...] (04/03/2022): Added automatically from request for surgery [id number] Sternoclavicular joint pain, right 04/03/2022 Overview (05/07/2022): Added automatically from request for surgery [id number] Physical deconditioning 03/28/2022 Vulvar carcinoma 03/26/2022 Cor pulmonale 03/22/2022 S/P right colectomy 03/01/2022 EDWINA III (vulvar intraepithelial neoplasia III) 0 01/31/2022 Overview (01/31/2022): Added automatically from request for surgery [id number] Vulvar cancer 01/30/2022 Malignant neoplasm of ascending colon 01/15/2022 Overview (01/15/2022): Added automatically from request for surgery [id number] Complication of arteriovenous dialysis fistula 0 01/15/2022 Herpetic gingivostomatitis 01/15/2022 Upper GI bleed 12/26/2021 SVT (supraventricular tachycardia) 12/18/2021 Overview (12/18/2021): Added automatically from request for surgery [id number] Inflammation of sacroiliac joint 08/30/2021 Hyperkalemia 06/20/2021 [...] Immunizations Immunization Administration Dates Next Due INFLUENZA [id number] 2015 Influenza, Quadrivalent, Spl it, Intramuscular 03/08/2021,02/29/2020,03/09/2018,03/10,03/09/2016 [...] How often do you attend chur or restorationist services? Never 12/05/2022 Do you belong to any clubs o r organizations such as holiness groups, unions, fraternal or athletic groups, or [...] staff should administer the PHQ-9) 0 11/27/2023 [facility] - Occupational [...] place to sleep or slept in a retirement (including now)? No 12/05/2022 Personal Safety Answer [...] on file Legal Sex Female 7:11 PM MENTAL HEALTH SPECIALIST Gender Identity Not on file Sexual Orientation Not on file Occupation Industry Job Start Date Job End Date On disability due to ESRD on HD. 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 Not on file Not on file Not on file Last Filed Vital Signs Vital Sign Reading Time Taken Comments Blood Pressure 135/53 08/03/2024 9:13 AM MENTAL HEALTH SPECIALIST Pulse 91 08/03/2024 9:13 AM MENTAL HEALTH SPECIALIST Temperature 37.1 C (98.8 F) 08/03/2024 9:13 AM MENTAL HEALTH SPECIALIST Respiratory Rate 19 08/03/2024 9:1 3 AM MENTAL HEALTH SPECIALIST Oxygen Saturation 95% 08/03/2024 9:13 AM MENTAL HEALTH SPECIALIST Inhaled Oxygen Concentration - - Weight 101.1 kg (222 lb 14.4 oz) 08/03/2024 9:13 AM MENTAL HEALTH SPECIALIST Height 142.2 cm (4' 8) 08/03/2024 9:13 AM MENTAL HEALTH SPECIALIST Body Mass Index 49.97 08/03/2024 9:13 AM MENTAL HEALTH SPECIALIST Results * MRI Abdomen Liver W WO [...] deposition. Unchanged hemangioma. Adrenals: Normal Kidneys: Atrophic [place] kidneys with scattered cysts. No suspicious renal [...] deposition. Unchanged hemangioma. Adrenals: Normal Kidneys: Atrophic [place] kidneys with scattered cysts. No suspicious renal [...] Result * (ABNORMAL) eGFR (07/29/2024 8:36 AM MENTAL HEALTH SPECIALIST) eGFR 4(L) >=60 mL/min/1. 73 m2 [...] last reviewed 2021. Blood 07/29/2024 8:36 AM MENTAL HEALTH SPECIALIST 07/29/2024 8:36 AM MENTAL HEALTH SPECIALIST us Bradley Laureano MD LAB BLOOD ORDERABLE S Final Result Performing Organization Address [facility] Co de Phone Number [place] [id number] [address] Department [place] [address] * Hepatitis panel, acute Blood (01/02/2024 8:45 AM CDT) Hep A IgM Nonreactive Nonreactive Comment: Interpretive Data: If Hep A IgM Ab is reported as Equivocal, a new sample should be drawn in two weeks for testing. Current interpretive data was last revised on 19. Hep B core IgM Nonreactive Nonreactive [facility] Comment: Interpretive Data If HepB Core IgM Ab is reported as Equivocal, a new sample should be drawn in two weeks for testing. Current interpretive data was last revised on 19. Hep C Ab Nonreactive Nonreactive [facility] Comment: Interpretive Data Nonreactive: Antibodies [...] last revised on 2019. HepBsAg Nonreactive Nonreactive [facility] Blood 01/02/2024 8:45 AM CDT 01/02/2024 8:48 AM CDT us Ramon Pastor MD LAB MICROBIOLOGY - GENERAL ORD ERABLES Final Result Performing Organization Address City/[facility]/[place] Number [place] [address] [address] Department [place] [address] * COLONOSCOPY (03/11/2023 7:38 AM CDT) Anatomical Region Laterality Modality Other Narrative Procedure Note Julio C Saavedra MD - 03/11/2023 7:38 AM CDT [facility] Endoscopy Lab Patient Name: Daniel Rivera Procedure [...] (Anesthesia Staff), Theodora Olivera, MALENA, Amor Mcdonald, Corporate Relations Director Referring MD: Pierre Bergeron MD Medicines: Monitored [...] intestine K64.8, Other hemorrhoids CPT copyright 2020 [employer]. All rights reserved. The codes documented in this report are preliminary and upon remote inpatient coder reviewmay be revised to meet current compliance [...] and children were not included. (Diabetes Care 31:7889-1340, 2008). The eAG is not equivalent to a fasting glucose. Blood 11/28/2022 2:54 PM CDT 11/28/2022 4:09 PM CDT us Lobito Melendez MD LAB BLOOD ORDERABLES Final Resu lt [place] [address] [address] Department [place] [address] * (ABNORMAL) Lipid panel (05/13/2022 8:03 AM MENTAL HEALTH SPECIALIST) Cholesterol 76 30 - 199 mg/dL [place] [...] 3 [place] Blood 05/13/2022 8:03 AM MENTAL HEALTH SPECIALIST 05/13/2022 8:03 AM MENTAL HEALTH SPECIALIST us Anika Machado DO LAB [place]LOOD [place] [address] [address] Department of [place] [address] from Last 3 Months or Most Recently Relevant to Health Maintenance
--- OUTSIDE RECORDS SUMMARY | 2024-11-08 12:06 | XMS_ITS | Clinical Summary ---
Author Organization [facility] [employer] Address [address] [place] [address] Care Team Providers Care Roller Skater Name Role Phone Pierre Bergeron MD Primary Care Provider Source Comments [facility] [employer],non-owned Affiliates and Associated Physician Practices is amultiple site organization consisting of ambulatory clinics and hospital sitesin [place], [place], [place] and [place]. This disclosure is being madepursuant to the Care Everywhere program and may not contain all information available regarding this patient. Last updated 18.[facility] [employer] Allergies Active Allergy Reactions Criticality Noted Date [...] mouth once daily 01/13/20 23 Active B Yhwinpa-A-Ihltu Acid (Argelia-Kelsy) Take 1 (one) tablet by [...] Gets at dialysis Act anila HYDROcodone-desiree taminophen ([place]) 10-325 MG tabletIndicatio ns:Encounter regarding vascular access for dialysis for end-stage renal disease (HCC) Take 1 (one) tablet by mouth every 6 hours as needed for Pain 30 tablet 10/13/19 25 Active Additional Information Patient not taking.Reported on 11/08/2024 HYDROcodone-desiree taminophen ([place]) 7.5-325 MG tabletIndicatio ns:Encounter regarding vascular access [...] Encounters Date Type Department Care Team Description 11/08/2024 10:30 AM CDT Office Visit [facility] - Surgery [address] [place] [phone] Jose David Machuca MD Postop check (Primary Dx) 11/08/2024 Travel 11/02/2024 11:00 AM CDT Office Visit [facility] Surgery [address] [place] [address] Jose David Machuca MD Postop check (Primary Dx) 11/02/2024 Travel 10/12/2024 7:38 AM CDT Anesthesia Event [facility] - Perioperative Surgery [address] [place] [address] Sameer Christie MD Shaw, Thomas J, DO 10/12/2024 7:30 AM CDT - 10/12/2024 8:54 AM CDT Surgery [facility] - Perioperative Surgery [address] [place] [address] Jose David Machuca MD RESECTION RIGHT ARM ANEURYSM, PLACE ACUSEAL, advancement flap closure 10/12/2024 5:22 AM CDT - 10/12/2024 11:44 AM CDT Hospital Encounter [facility] - Perioperative Surgery [address] [place] [address] Jose David Machuca MD Surgery General Discharge Disposition: Home or Self Care 10/12/2024 Travel 10/08/2024 Travel 09/28/2024 8:40 AM CDT Office Visit [facility] Surgery [address] [facility], [address] [place] [address] Jose David Machuca MD Pseudoaneurysm (Primary Dx) 09/28/2024 7:03 AM CDT - 09/28/2024 11:59 PM CDT Hospital Encounter [facility] Vascular Services [address] [place] [address], [address] [place] [address] Adriane Wilson MD Reynolds, Michael D, MD Discharge Disposition: Home or Self Care 09/28/2024 Travel 08/19/2024 11:05 AM CDT Office Visit [facility] Surgery [address] [place] [address], [facility] [address] [place] [address] Marija Eisenberg APRN-SILICA MIXER OPERATOR Postop check (Primary Dx) 08/19/2024 Travel 08/12/2024 10:00 AM FINAL INSPECTOR SHUTTLE Office Visit [address], [facility] [address] [place] [address] Marija Eisenberg APRN-SILICA MIXER OPERATOR Postop check (Primary Dx) 08/12/2024 Travel from [...] drink = 0.6 oz pur e alcohol) occ AUDIT-C Answer Date Recorded Frequency of Alcohol [...] - - Weight 98.4 kg (217 lb) 11/08/2024 9:39 AM CDT Height 142.2 cm (4' 8) 11/08/2024 9:39 AM CDT Body Mass Index 48.65 11/08/2024 9:39 AM CDT Plan of Treatment Upcoming Encounters Date Type Department Care Team (Late st Contact Info) Description 11/15/2024 9:30 AM CDT Appointment [facility] Health Vascular Services [address] [facility], [address] [place], [place] [phone] [place] [address] [facility] [address] [place] [address] [place] [address] [facility] [address] [place] [address] 11/18/2024 12:00 PM CDT Office Visit [facility] - Orthopedics [address] [facility], [facility] [place] [address] Jennifer Leonard PA-C [address] [place] [address] Health Maintenance Due Date Last Done Comments BONE DENSITY TESTING 1955 COLOGUARD (AGES 45-75) - COLON CA SCREENING 1955 CT COLONOGRAPHY - COLON CA SCREENING [...] exists SCREENING FOR DIABETES 10/13/2027 , 07/27/2024, 12/04/2022, Additional history exists COLON MONITORING 03/11/2033 03/11/2023, , 01/01/2022 COLONOSCOPY - COLON CA SCREENING 03/11/2033 03/11/2023, [...] this topic Medical Devices Implanted Type Area Property Damage Claims Adjustor Device Identifier Shelf Expiration Date Model / Serial / Lot Fuller, Floseal Hemostatic Matrix Implanted:Qty: 1 on 02/01/2014 by Jose David Machuca MD at [facility] Left: Arm 04/07/2015 [id number] / / [id number] Viabahn Stent Implanted:Qty: 1 on 08/22/2020 by Jaime Ulloa MD at [facility] Right: Subclavian North [employer] 02/14/2023 [id number] / [id number] / Graft Vasc 4-7mm 45cm North Apollo Acuseal Tpr - [id number] Implanted:Qty: 1 on 10/12/2024 by Jose David Machuca MD at [facility] Right: Arm W L North [employer] 01/19/2027 [id number] / [id number] / Procedures Procedure Name Priority Date/Time Associated Diagnosis Comments PA REPR DFCT ART AXILLO-BRACH 10/12/2024 7:38 AM [...] - 16 mmol/L 10/12/2024 6:59 AM CDT [facility] BUN 35(H) 7 - 26 mg/dL 10/12/2024 6:59 AM CDT [facility] Creatinine 7.09(H) 0.57 - 1.11 mg/dL 10/12/2024 6:59 AM CDT [facility] eGFR by CKD-EPI 6(L) >=90 mL/min/1.7 3 m2 10/12/2024 6:59 AM CDT [facility] Blood BLOOD SPECIMEN / Unknown Venipuncture / Unknown 10/12/2024 6:35 AM CDT 10/12/2024 6:37 AM CDT Felix Moore DO LAB - CHEMISTRY ORDERABLES Olena norris Result [facility] [address] [place] [address] * CARDIAC RHYTHM STRIP ORDER (09/30/2024 2:47 PM CDT) Narrative 09/30/2024 2:47 PM CDT Ordered by an unspecified provider. Scanned Document CARDIAC SERVICES ORDERABLES Fin al Result * IR Angio [facility] (09/28/2024 8:39 AM CDT) Anatomical Region Laterality Modality Lower Extremity, Upper Extremity, Chest X-Ray Angiography Narrative 09/28/2024 12:23 PM CDT Jose David Machuca MD 09/28/2024 12:26 PM [facility] Vascular [facility] 1955 DATE OF PROCEDURE: 09/28/2024 ORDERING PHYSICIAN: [...] stent. Tract was dilated and a 7 Singaporean sheath was inserted. Patient was given IV [...] MEDICAID - [place] U[employer] MANAGED MEDICARE ADV [place] [employer] [facility] Advance Directives * Full Code (Latest Code Status on File) Date Activated Date Inactivated Comments 08/22/2020 11:24 AM 08/26/2020 5:17 PM * Full Code Date Activated Date Inactivated Comments 06/07/2019 12:54 PM 06/10/2019 7:00 PM Care Teams Roller Skater Relationship Specialty Start Date End Date Pierre Bergeron MD PCP - General Internal Medicine 11/15/13
--- OUTSIDE RECORDS SUMMARY | 2024-11-08 12:06 | XMS_ITS | Referral Summary ---
Author Organization [facility] Home Care [facility] Address [address] [place] [address] Care Team Providers Care Workers' Compensation Mediator Name Role Phone Pierre Bergeron MD Primary Care Provider Mattie Oliver MD Unavailable [phone] Jose David Simpson MD Unavailable [phone] Russell Mock MD Unavailable [phone] Ramon Pastor MD Unavailable [phone] Lobito Melendez MD Unavailable [phone] Theresa Godinez MD, Quentin Roe Unavailable Elva Kurtz MD Unavailable Jorge Luis Alvarez MD Unavailable [phone] Encounters Date Type Department Care Team Description 08/25/2024 7:03 AM CDT - 08/25/2024 11:59 PM CDT Hospital Encounter [facility] Imaging and Radiology [address] [place] [address] Liver disease, unspecified Discharge Disposition: [...] 12/14/2023 Assessment & Plan (06/29/2024 11:57 AM [facility]): H/o Osteoporosis Chronic, unknown status We will [...] (04/03/2022): Added automatically from request for surgery [id number] Sternoclavicular joint pain, right 04/03/2022 Overview (05/07/2022): Added automatically from request for surgery [id number] Physical deconditioning 03/28/2022 Vulvar carcinoma 03/26/2022 Cor pulmonale 03/22/2022 S/P right colectomy 03/01/2022 EDWIAN III (vulvar intraepithelial neoplasia III) 0 01/31/2022 Overview (01/31/2022): Added automatically from request for surgery [id number] Vulvar cancer 01/30/2022 Malignant neoplasm of ascending colon 01/15/2022 Overview (01/15/2022): Added automatically from request for surgery [id number] Complication of arteriovenous dialysis fistula 0 01/15/2022 Herpetic gingivostomatitis 01/15/2022 Upper GI bleed 12/26/2021 SVT (supraventricular tachycardia) 12/18/2021 Overview (12/18/2021): Added automatically from request for surgery [id number] Inflammation of sacroiliac joint 08/30/2021 Hyperkalemia 06/20/2021 [...] Immunizations Immunization Administration Dates Next Due INFLUENZA [id number] 2015 Influenza, Quadrivalent, Spl it, Intramuscular 03/08/2021,02/29/2020,03/09/2018,03/10,03/09/2016 [...] How often do you attend chur or jehovah's witness services? 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 on file Not on file Not on file Last Filed Vital Signs Vital Sign Reading Time Taken Comments Blood Pressure 135/53 08/03/2024 9:13 AM [facility] Pulse 91 08/03/2024 9:13 AM [facility] Temperature 37.1 C (98.8 F) 08/03/2024 9:13 AM [facility] Respiratory Rate 19 08/03/2024 9:13 AM [facility] Oxygen Saturation 95% 08/03/2024 9:13 AM [facility] Inhaled Oxygen Concentration - - Weight 101.1 kg (222 lb 14.4 oz) 08/03/2024 9:13 AM [facility] Height 142.2 cm (4' 8) 08/03/2024 9:13 AM [facility] Body Mass Index 49.97 08/03/2024 9:13 AM [facility] Plan of Treatment Not on file Medical Devices Implanted Type Area Sample Dye Mixer Device Identifier Shelf Expiration Date Model / Serial / Lot Endoprosthesis- 03/25/2019 Implanted:Qty: 1 on 03/25/2019 Endoprosthesis Left: Subclavian [employer] Stent-02/12/2022 Implanted:Qty: 1 on 02/12/2022 Stent Right: Subclavian Cardale [id number] / [id number] / Gibson V[employer] Device Clsr Perclose Prostyle Sut-Mediatd Closure-Repair Sys [id number] - [id number] Implanted:Qty: 1 on 12/03/2022 by Lobito Melendez MD at [facility] Vascular [id number] / / [employer] Percutaneous Transcatheter Amplatzer Amulet 18mm [id number] - [id number] Implanted:Qty: 1 on 12/03/2022 by Lobito Melendez MD at [facility] Vascular 03/08/2027 [id number] / / [id number] Procedures Procedure Name Priority Date/Time Associated Diagnosis Comments MRI ABDOMEN LIVER W WO CONTRAST Schedule Routine, Read Routine (OP Routine) 08/25/2024 8:52 AM CDT Liver disease, unspecified EGFR Routine 07/29/2024 8:36 AM [facility] Age-related osteoporosis without current pathological fracture HEPATITIS PANEL, ACUTE Routine 01/02/2024 8:45 AM CDT COLONOSCOPY 03/11/2023 7:38 AM CDT HEMOGLOBIN A1C Routine 11/28/2022 2:54 PM CDT Encounter for preadmission testing Type 2 diabetes mellitus with chronic kidney disease on chronic dialysis, without long-term current use of insulin (HCC) LIPID PANEL Routine 05/13/2022 8:03 AM [facility] from Last 3 Months or Most Recently [...] deposition. Unchanged hemangioma. Adrenals: Normal Kidneys: Atrophic [place] kidneys with scattered cysts. No suspicious renal [...] deposition. Unchanged hemangioma. Adrenals: Normal Kidneys: Atrophic [place] kidneys with scattered cysts. No suspicious renal [...] Result * (ABNORMAL) eGFR (07/29/2024 8:36 AM [facility]) eGFR 4(L) >=60 mL/min/1. 73 m2 Comment: [...] last reviewed 2021. Blood 07/29/2024 8:36 AM [facility] 07/29/2024 8:36 AM [facility] us Bradley Laureano MD LAB BLOOD ORDERABLE S Final Result [facility] [address] [address] Department [place] [address] * Hepatitis panel, acute Blood (01/02/2024 8:45 AM CDT) Hep A IgM Nonreactive Nonreactive Comment: Interpretive Data: If Hep A IgM Ab is reported as Equivocal, a new sample should be drawn in two weeks for testing. Current interpretive data was last revised on 19. Hep B core IgM Nonreactive Nonreactive [facility] Comment: Interpretive Data If HepB Core IgM Ab is reported as Equivocal, a new sample should be drawn in two weeks for testing. Current interpretive data was last revised on 19. Hep C Ab Nonreactive Nonreactive [facility] Comment: Interpretive Data Nonreactive: Antibodies to [...] last revised on 2019. HepBsAg Nonreactive Nonreactive [facility] Blood 01/02/2024 8:45 AM CDT 01/02/2024 8:48 AM CDT Ramon Pastor MD LAB MICROBIOLOGY - GENERAL ORD ERABLES Final Result Performing Organization Address City/State/[facility] Co de Phone Number [facility] [address] [address] Department [place] [employer] [place] [address] * COLONOSCOPY (03/11/2023 7:38 AM CDT) Anatomical Region Laterality Modality Other Narrative Procedure Note Julio C Saavedra MD - 03/11/2023 7:38 AM CDT - [facility] Endoscopy Lab Patient Name: Daniel Rivera Procedure [...] (Anesthesia Staff), Theodora Olivera RN, Amor Mcdonald, Tree Trimming Supervisor Referring MD: Pierre Bergeron MD Medicines: Monitored [...] intestine K64.8, Other hemorrhoids CPT copyright 2020 [employer]. All rights reserved. The codes documented in this report are preliminary and upon philosophy professor reviewmay be revised to meet current compliance [...] and children were not included. (Diabetes Care 31:9484-7672, 2008). The eAG is not equivalent to a fasting glucose. Blood 11/28/2022 2:54 PM CDT 11/28/2022 4:09 PM CDT us Lobito Melendez MD LAB BLOOD [place] [address] [address] Department [place] [address] * (ABNORMAL) Lipid panel (05/13/2022 8:03 AM [facility] [place]) Cholesterol 76 30 - 199 mg/dL [facility] [...] 3 [facility] [place] Blood 05/13/2022 8:03 AM [facility] 05/13/2022 8:03 AM [facility] [place] us Anika Machado DO LAB BLOOD [place] [address] [address] Department [place] [address] from Last 3 Months or Most Recently Relevant to Health Maintenance Insurance [facility] MEDICARE ADVANTAGE [facility] MEDICARE ADVANTAGE [employer] [facility] MEDICARE ADVANTAGE Advance Directives For more information, please contact: [phone] * Full Code (Latest Code Status on [...] 3:19 PM 04/03/2022 1:35 PM Care Teams Workers' Compensation Mediator Relationship Specialty Start Date End Date Pierre Bergeron MD [address] [address] PCP - General 06/20/21 [place] [address] [place] [address] Consulting Physician Nephrology 06/24/21 [place] [address] [facility] [address] [place] [address] Consulting Physician Pulmonary Disease 06/24/21 Russell Mock MD [address] [place] [address] Consulting Physician Cardiology 06/24/21 Ramon Pastor MD [address] [place] [address] Consulting Physician Nephrology 01/03/22 Lobito Melendez MD [address] [place] [address] Consulting Physician Interventional Cardiology 01/03/22 Quentin Cardenas Jr., MD [address] [place] [address] Consulting Physician Cardiovascular Disease 05/24/22 Elva Kurtz MD [address] [facility] [phone] [place] [address] Consulting Physician Gynecologic Oncology 05/24/22 Jorge Luis Alvarez MD [address] [place] [address] Consulting Physician Cardiology 01/02/24
--- OUTSIDE RECORDS SUMMARY | 2024-11-08 12:08 | XMS_ITS | Encounter Summary ---
Author Organization [facility] Address [address] [facility] [place] [address] Care Team Providers Care Senior Administrative Support Name Role Phone Pierre Bergeron MD Primary Care Provider Encounter Details Date Type Department Care Team (Latest Contact Info) Description 11/08/2024 Travel Social History Tobacco Use Types Packs/Day Years Used Date Smoking Tobacco: Former Cigarettes Q uit: 06/09/1999 Smokeless Tobacco: Never Alcohol Use Standard Drinks/Week Comments Yes 0 [...] on file documented as of this encounter Functional Status * Is person deaf or have serious hearing difficulty? Answer Date of Assessment Author No 08/22/2020 12:52 PM СЕРГЕЙT Emily Guaman RN * Is person blind or have serious difficulty seeing? Answer Date of Assessment Author No 08/22/2020 12:52 PM Emily Aceves RN * Does person have serious difficulty walking/climbing stairs? Answer Date of Assessment Author Yes 08/22/2020 12:52 PM Emily Aceves RN * Does person have difficulty dressing/bathing? Answer Date of Assessment Author No 08/22/2020 12:52 PM Emily Aceves RN * Does person have difficulty doing errands alone? Answer Date of Assessment Author Yes 08/22/2020 12:52 PM CDT Emily Guaman RN documented as of this encounter Mental Status * Does person have difficulty concentrating/remembering/making decisions? Answer Entry Date Author No 08/22/2020 12:52 PM CDT Emily Guaman RN documented in this encounter Plan of Treatment Upcoming Encounters Date Type Department Care Team (Late st Contact Info) Description 11/15/2024 9:30 AM CDT Appointment [facility] Vascular Services [address] [facility], [address] [place] [address] [place] [address] 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
--- OUTSIDE RECORDS SUMMARY | 2024-11-08 12:08 | XMS_ITS | Data Portability ---
Author Organization [facility] Address [address] [place] [address] Care Team Providers Care Air Control/Anti Air Warfare Officer Name Role Phone HARDEEP CORDON [employer] Engraver Hand LE JEREZ Client Service Supervisor PIERRE YBARRA Primary Care Provider Assessment Encounter [...] taylor silva 2023 024 [facility], [address] [facility], [address], [place], [address], 04/30/2024 08:28:02 mac ward 2023 024 [facility], [address], [address], [place], [address], 04/30/2024 08:28:01 HbA1 c (hem oglo bin A1c) , bloo d 2023 024 oajao [facility], [address], [address], [place], [address], 11/25/2023 21:44:38 lipi d pane l, seru m 2023 024 oajao [facility], [address], [address], [place], [address], 11/25/2023 14:45:[address]lo gist /onc olog ist refe rral - Hemo side jean carlos s? 2024 025 ATHABI Graham MD, [address], [address], 11/04/2024 15:40:[address] refe rral 2024 025 BELLA Torres MD, [address] [place], [address], 09/09/2024 14:36:43 Procedures None jay rded . Surgeries None jay rded . Imaging MAMM O, scre enin g, digi jose guadalupe, bila ravinder l 2024 025 [facility], [place], [address] [facility], [place], [address], 11/04/2024 12:16:45 CT, abdo men + pelv is, w/o cont rast - Righ t side d mid abdo maricarmen l pain . Hist ory of letty zabala ma of the righ t colo n, s/p jay humberto ctom y 2024 025 BELLA Maryam norris (Radiology), [address], [place], [address], 07/29/2024 09:23:38 XR, ribs , unil ater al, w/ PA ches t - Pain , post erio r part of the left jay thor ax. Rece nt fall 2024 025 BELLA Maryam norris (Radiology), [address], [place], [address], 07/29/2024 17:46:45 MAMM O, scre enin g, bila ravinder l 2023 024 [facility] ([facility]), [address] [place], [address], 10/22/2023 09:26:21 Medication Orders Trul icit y 3 mg/0 .5 mL subc utan eous pen inje ctor 2024 025 [facility][id number], [address], [place], [place], [id number], 11/04/2024 12:16:33 Bact rim DS 800 mg-1 60 mg tabl et 2024 025 [facility] #[id number], [address], [place], [place], [id number], 11/04/2024 12:14:55 ator vast atin 80 mg tabl et 2023 024 [facility] #19401, [address], [place], [place], [id number], 02/05/2024 10:27:40 Trul icit y 1.5 mg/0 .5 mL subc utan eous pen inje ctor [facility]23 [id number], [address], [place], [place], [id number], 11/04/2024 12:16:49 esci talo pram 5 mg tabl et 2023 024 [facility] #[id number], [address], [place], [place], [id number], 02/05/2024 10:09:58 Trul icit y 0.75 mg/0 .5 mL subc utan eous pen inje ctor 2023 [facility] #[id number], [address], [place], [place], [id number], 02/05/2024 10:23:39 Patient TargetsNo targets recorded. Patient Instructions Encounter Date Encounter Id Patient Instructions Last Modified By Organization Details Last Modified Time 10/09/2023 [id number] When You Want to Lose Weight: Care Instructions oajao Not available 10/09/2023 09:45:58 learning about breast cancer screening oajao Not available 10/09/2023 09:13:26 Knee Xray report from [facility] Walker Start Trulicity Follow up in 4 weeks oajao Not available 10/09/2023 11:18:18 11/25/2023 [id number] Walker Rollator as previously ordered Wean off Escitalopram and D/C Increase Trulicity to 1.5 mg weekly Continue all other medications Follow up as scheduled on 02/05/2024 oajao Not available 11/25/2023 19:33:26 02/05/2024 [id number] Stop Meloxicam a s her thumb pain has resolved. Labs Follow up in 6 months and PRN Schedule the annual COVID vaccine oajao Not available 02/05/2024 10:31:03 07/15/2024 [id number] abdominal pain: care instructions oajao Not available 07/15/2024 09:43:[address] GI Follo w up in 4 weeks oajao Not available 07/15/2024 09:45:34 11/04/2024 [id number] mammogram: about this test oalin Not available 11/04/2024 12:05:32 Hematology Bactrim once a day MMG Increase Trulicity to 3 mg weekly Follow up in 7-8 weeks oamignono Not available 11/04/2024 12:16:44 Reason for Referral Anti Air Warfare Operations Officer Referral for Abdominal pain Right sided mid [...] 133 mg/dL 100-19 9 Not Available [facility] ([facility]) [address] [place], [address], 04/30/2024 08:28:01 04/29/20 24 04/30/2024 LIPID PANEL triglyceride s 119 mg/dL 0-149 Not Available [facility] ([facility]) [address] [place], [address], 04/30/2024 08:28:01 04/29/20 24 04/30/2024 LIPID PANEL HDL cholesterol 70 mg/dL >39 Not Available [facility] [address] [place], [address], 04/30/2024 08:28:01 04/29/20 24 04/30/2024 LIPID PANEL VLDL cholesterol junior 21 mg/dL 5-40 Not Available [facility]) [address] [place], [address], 04/30/2024 08:28:01 04/29/20 24 04/30/2024 LIPID PANEL LDL chol calc ([facility]) 42 mg/dL 0-99 Not Available [facility]) [address] [place], [address], 04/30/2024 08:28:01 04/29/20 24 04/30/2024 HEMOG LOBIN A1C hemoglobin A1C 5.1 % 4.8-5. 6 Predi abete s: 5.7 - 6.4 Diabe niru: >6.4 Glyce dewayne contr ol for adult s with diabe niru: <7.0 Not Available [facility] ([facility]) [address] [facility], [place], [address], 04/30/2024 08:28:02 07/27/19 25 07/27/2024 Gas and Carbo n monox kae panel - Venou s blood pH of venous blood 7.48 pH low: 7.32pH high: 7.42pH high pH Venou s 7.48 (H) 7.32 - 7.42 pH 07/27 8:15 AM PHYSICAL TESTING SUPERVISOR [facility] RESP THERA PY Not Available Not Available 07/27/2024 10:46:34 07/27/19 25 07/27/2024 Gas and Carbo n monox kae panel - Venou s blood pO2 venous 34 text: 35 - 40 mmHg low pO2 Venou s 34 (L) 35 - 40 mmHg 07/27 8:15 AM PHYSICAL TESTING SUPERVISOR [facility] RESP THERA PY Not Available Not Available 07/27/2024 10:46:34 07/27/19 25 07/27/2024 Gas and Carbo n monox kae panel - Venou s blood pCO2 venous 56 text: 40 - 50 mmHg high pCO2 Venou s 56 (H) 40 - 50 mmHg 07/27 8:15 AM PHYSICAL TESTING SUPERVISOR [facility] RESP THERA PY Not Available Not Available 07/27/2024 10:46:34 07/27/19 25 07/27/2024 Gas and Carbo n monox kae panel - Venou s blood bicarbonate [moles/volum e] in venous blood 41.7 mmol/ L low: 24mmol /Lhigh : 26mmol /L high HCO3 Venou s 41.7 (H) 24 - 26 mmol/ L 07/27 8:15 AM PHYSICAL TESTING SUPERVISOR [facility] RESP THERA PY Not Available Not Available 07/27/2024 10:46:34 07/27/19 25 07/27/2024 Gas and Carbo n monox kae panel - Venou s blood base excess venous 16.1 mmol/ L low: -2mmol /Lhigh : 2mmol/ L high Base Exces s Venou s 16.1 (H) -2.0 - 2.0 mmol/ L 07/27 8:15 AM PHYSICAL TESTING SUPERVISOR [facility]PH[facility] RESP THERA PY Not Available Not Available 07/27/2024 10:46:34 07/27/19 25 07/27/2024 Gas and Carbo n monox kae panel - Venou s blood oxyhemoglobi n venous 57.2 % Oxyhe moglo bin Venou s 57.2 % 07/27 8:15 AM PHYSICAL TESTING SUPERVISOR [facility] RESP THERA PY Not Available Not Available 07/27/2024 10:46:34 07/27/19 25 07/27/2024 Gas and Carbo n monox kae panel - Venou s blood deoxyhemoglo bin (hhb) venous % 41.1 % Deoxy hemog lobin (HHB) Venou s % 41.1 % 07/27 8:15 AM PHYSICAL TESTING SUPERVISOR [facility] RESP THERA PY Not Available Not Available 07/27/2024 10:46:34 07/27/19 25 07/27/2024 Gas and Carbo n monox kae panel - Venou s blood methemoglobi n/hemoglobin .total in blood low: 0%high : 2% Methe moglo bin <0.8 0.0 - 2.0 % 07/27 8:15 AM PHYSICAL TESTING SUPERVISOR [facility]PH[facility] RESP THERA PY Not Available Not Available 07/27/2024 10:46:34 07/27/19 25 07/27/2024 Gas and Carbo n monox kae panel - Venou s blood carboxyhemog lobin/hemogl obin.total in blood 1.1 % low: 0%high : 2% Carbo xyhem oglob in 1.1 0.0 - 2.0 % 07/27 8:15 AM PHYSICAL TESTING SUPERVISOR [facility]PH[facility] RESP THERA PY Not Available Not Available 07/27/2024 10:46:34 07/27/19 25 07/27/2024 Gas and Carbo n monox kae panel - Venou s blood oxygen content in venous blood 7.8 mL/dL O2 Simba nt Venou s 7.8 ml/dL 07/27 8:15 AM PHYSICAL TESTING SUPERVISOR [facility]PH[facility] RESP THERA PY Not Available Not Available 07/27/2024 10:46:34 07/27/19 25 07/27/2024 Gas and Carbo n monox kae panel - Venou s blood hemoglobin [mass/volume ] in blood by oximetry 9.7 g/dL low: 12g/dL high: 15.6g/ dL low Hemog lobin by COOX 9.7 (L) 12.0 - 15.6 g/dL 07/27 8:15 AM PHYSICAL TESTING SUPERVISOR DPHC RESP THERA PY Not Available Not Available 07/27/2024 10:46:34 07/27/19 25 07/27/2024 Gas and Carbo n monox kae panel - Venou s blood oxygen [partial pressure] saturation adjusted to 0.5 in venous blood 58 % low: 70% low O2 Satur ation Venou s 58 (L) >=70 % 07/27 8:15 AM PHYSICAL TESTING SUPERVISOR [facility] RESP THERA PY Not Available Not Available 07/27/2024 10:46:34 07/27/19 25 07/27/2024 Gas and Carbo n monox kae panel - Venou s blood sodium [moles/volum e] in serum or plasma 137 mmol/ L low: 135mmo l/Lhig h: 145mmo l/L Sodiu m Whole Blood 137 135 - 145 mmol/ L 07/27 8:15 AM PHYSICAL TESTING SUPERVISOR [facility]PH[facility] RESP THERA PY Not Available Not Available 07/27/2024 10:46:34 07/27/19 25 07/27/2024 Gas and Carbo n monox kae panel - Venou s blood potassium [moles/volum e] in serum or plasma 5.4 mmol/ L low: 3.5mmo l/Lhig h: 5.5mmo l/L Potas sium Whole Blood 5.4 3.5 - 5.5 mmol/ L 07/27 8:15 AM PHYSICAL TESTING SUPERVISOR [facility]PH[facility] RESP THERA PY Not Available Not Available 07/27/2024 10:46:34 07/27/19 25 07/27/2024 Gas and Carbo n monox kae panel - Venou s blood chloride [moles/volum e] in serum or plasma 100 mmol/ L low: 101mmo l/Lhig h: 111mmo l/L low Chlor kae WB 100 (L) 101 - 111 mmol/ L 07/27 8:15 AM PHYSICAL TESTING SUPERVISOR [facility]PH[facility] RESP THERA PY Not Available Not Available 07/27/2024 10:46:34 07/27/19 25 07/27/2024 Gas and Carbo n monox kae panel - Venou s blood calcium.ioni zed [moles/volum e] in blood 1.02 mmol/ L Calci um Ioniz ed 1.02 mmol/ L 07/27 8:15 AM PHYSICAL TESTING SUPERVISOR [facility]PH[facility] RESP THERA PY Not Available Not Available 07/27/2024 10:46:34 07/27/19 25 07/27/2024 Gas and Carbo n monox kae panel - Venou s blood calcium.ioni zed [moles/volum e] adjusted to pH 7.4 in blood 1.05 mmol/ L low: 1.19mm ol/Lhi gh: 1.34mm ol/L low Ioniz ed Calci um pH Adjus arcenio 1.05 (L) 1.19 - 1.34 mmol/ L 07/27 8:15 AM PHYSICAL TESTING SUPERVISOR [facility]PH[facility] RESP THERA PY Not Available Not Available 07/27/2024 10:46:34 07/27/19 25 07/27/2024 Gas and Carbo n monox kae panel - Venou s blood anion gap in blood 1 mmol/ L low: 8mmol/ Lhigh: 18mmol /L low Anion Gap (AG) Arter ial 1 (L) 8 - 18 mmol/ L 07/27 8:15 AM PHYSICAL TESTING SUPERVISOR [facility]PH[facility] RESP THERA PY Not Available Not Available 07/27/2024 10:46:34 07/27/19 25 07/27/2024 Gas and Carbo n monox kae panel - Venou s blood glucose [mass/volume ] in blood 84 mg/dL low: 70mg/d Lhigh: 99mg/d L Gluco se WB 84 70 - 99 mg/dL 07/27 8:15 AM PHYSICAL TESTING SUPERVISOR [facility] RESP THERA PY Not Available Not Available 07/27/2024 10:46:34 07/27/19 25 07/27/2024 Gas and Carbo n monox kae panel - Venou s blood lactate [moles/volum e] in blood 1 mmol/ L high: 2mmol/ L Lacti c Acid Whole Blood 1.0 <=2.0 mmol/ L 07/27 8:15 AM PHYSICAL TESTING SUPERVISOR [facility] RESP THERA PY Not Available Not [...] 70 - 99 mg/dL 07/27 7:55 AM PHYSICAL TESTING SUPERVISOR [facility] Not Available Not Available 07/27/2024 10:46:34 07/27/19 25 07/27/2024 Gluco se [Mass /volu me] in Arter ial blood specimen source identified VENOUS Speci men Type Venou s 07/27 7:55 AM PHYSICAL TESTING SUPERVISOR [facility] Not Available Not Available [...] 145 mmol/ L 10/12 6:59 AM CDT [facility] Not Available Not Available 10/18/2024 17:56:57 10/13/19 25 10/12/2024 Basic metab olic 1999 panel - Serum or Plasm a potassium [moles/volum e] in serum or plasma 4.7 mmol/ L low: 3.5mmo l/Lhig h: 5.1mmo l/L Potas sium 4.7 3.5 - 5.1 mmol/ L 10/12 6:59 AM CDT [facility] Not Available Not Available 10/18/2024 17:56:57 10/13/19 25 10/12/2024 Basic metab olic 1999 panel - Serum or Plasm a chloride [moles/volum e] in serum or plasma 98 mmol/ L low: 98mmol /Lhigh : 107mmo l/L Chlor kae 98 98 - 107 mmol/ L 10/12 6:59 AM CDT [facility] Not Available Not Available 10/18/2024 17:56:57 10/13/19 25 10/12/2024 Basic metab olic 1999 panel - Serum or Plasm a carbon dioxide, total [moles/volum e] in serum or plasma 28 mmol/ L low: 22mmol /Lhigh : 29mmol /L CO2 28 22 - 29 mmol/ L 10/12 6:59 AM CDT [facility] Not Available Not Available 10/18/2024 17:56:57 10/13/19 25 10/12/2024 Basic metab olic 1999 panel - Serum or Plasm a calcium [mass/volume ] in serum or plasma 10.1 mg/dL low: 8.4mg/ dLhigh : 10.4mg /dL Calci um 10.1 8.4 - 10.4 mg/dL 10/12 6:59 AM CDT [facility] Not Available Not Available 10/18/2024 17:56:57 05/0610/12/2024 Bioparaiso 1999 panel - Serum or Plasm a [...] Available 10/18/2024 17:56:57 10/13/19 25 10/12/2024 Basic [employer] 2000 panel - Serum or Plasm a creatinine [mass/volume ] in serum or plasma 7.09 mg/dL low: 0.57mg /dLhig h: 1.11mg /dL high Creat inine 7.09 (H) 0.57 - 1.11 mg/dL 10/12 6:59 AM CDT [facility] Not Available Not Available 10/18/2024 17:56:57 10/13/1910/12/2024 Basic [employer] 1999 panel - Serum or Plasm a glomerular filtration rate [volume rate/area] in serum, plasma or blood by creatinine-b ased formula (CKD-epi 2020)/1.73 sq M 6 text: >=90 mL/min /1.73 m2 low eGFR by CKD-E PI 6 (L) >=90 mL/mi n/1.7 3 m2 10/12 6:59 AM CDT [facility] Not Available Not Available 10/18/2024 17:56:57 10/13/19 25 10/12/2024 Basic [employer] 1999 panel - Serum or Plasm a interpretati on and review of laboratory results ABNORM AL Not Available Not Available 17:56:57 10/02/19 24 09/26/2023 emerg ency dept. visit * No observ ation record ed. [facility] [address] [place], [address], 10/09/2023 09:20:32 10/22/19 24 10/21/2023 MAMMO , scree thor, bilat eral No observ ation record ed. [facility] [address] [facility], [place], [address], 11/25/2023 14:46:00 07/29/19 25 07/29/2024 CT, abdom en + pelvi s, w/o contr ast No observ ation record ed. [facility] [address], [place], [address], 11/04/2024 11:53:05 07/29/19 25 07/29/2024 XR, ribs, unila teral , w/ PA chest No observ ation record ed. [facility] [address], [place], [address], 11/04/2024 11:53:05 08/26/19 25 08/25/2024 MRI, liver , w/wo contr ast No observ ation record ed. [facility] [address], [place], [address], 11/04/2024 12:02:13 Result Notes None recorded. Problems Name Problem SNOMED Code Status Onset Date Resolution Date Notes Provider Name and Address Organization Details Recorded Time History of total hysterecto my 287711713 Active 2018 Not Available [facility] 4 21:41:35 Osteoarthr itis of knee 438826337 Active 2019 Not Available [facility] 4 21:41:35 Disorder of coronary artery 356453739 Active 2019 Not Available [facility] 4 21:41:35 Cardiomega ly 8947900 Active 2019 Not Available [facility] 4 21:41:36 Urinary tract infectious disease 10033972 Active Not Available [facility] 4 21:41:36 Allergic urticaria 73062577 Active Not Available [facility] 4 21:41:35 Inflammati on of sacroiliac joint 40473855 Active 2021 Not Available [facility] 4 21:41:35 Pneumonia 969113377 Active Not Available [facility] 4 21:41:35 History of malignant neoplasm of colon 058606505 Active 2022 Not Available [facility] 4 21:41:35 History of malignant neoplasm of vulva 641061269 Active 2022 Not Available [facility] 4 21:41:35 Pain of left hip joint 1257630878238 00 Active Not Available [facility] 4 21:41:35 Obstructiv e sleep apnea syndrome 72209614 Active 2022 Not Available [facility] 4 21:41:36 Osteoporos is 48765704 Active 2023 Pierre Ybarra MD Attn: Accounting ,[address] [place], [address] , [place] [facility] 4 11:16:05 Paroxysmal atrial fibrillati on 461512150 Active Pierre Ybarra MD Attn: Accounting ,[address] [place], [address] , [place] [facility] 4 10:17:58 Thoracic back pain 256994993 Active 2024 Pierre Ybarra MD Attn: Accounting ,[address] [place], [address] , [place] [facility] 5 09:39:30 Osteoarthr itis 706877996 Active Not Available [facility] 4 21:41:35 Disorder of lipid metabolism 547943736 Active Not Available [facility] 4 21:41:35 Polyp of colon 80446639 Active Not Available [facility] 4 21:41:35 Herpetic gingivosto matitis 67307157 Active Not Available [facility] 4 21:41:35 Diabetes mellitus 77660593 Active Not Available [facility] 4 21:41:36 End-stage renal disease 84904901 Active Not Available [facility] 4 21:41:35 Cough 25740721 Active Not Available [facility] 21:41:35 Problem Notes None recorded. Procedures Surgical History Date Name Laterality Status Provider Name and Address Organization Details Recorded Time 10/09/19 24 Diabetic Foot Exam completed Pierre Ybarra MD Attn: Accounting,[address] [facility], [place], [address], [place] [facility] 10/09/2023 09:46:32 03/11/20 23 colonoscopy completed Pierre Ybarra MD Attn: Accounting,[address] [facility], [place], [address], [place] 03/11/2023 09:58:33 03/11/20 23 colonoscopy completed Pierre Ybarra MD Attn: Accounting,[address] [facility], [place], [address], [place] 05/29/2023 11:07:13 03/26/20 22 vulvectomy completed Pierre Ybarra MD Attn: Accounting,[address] , [place], [address], [place] 04/02/2022 08:44:16 02/22/20 22 right colectomy completed Pierre Ybarra MD Attn: Accounting,[address] , [place], [address], [place] 02/26/2022 16:05:58 01/02/20 22 Colonoscopy completed Pierre Ybarra MD Attn: Accounting,[address], [place], [address], [place] [facility] 01/01/2022 15:21:26 01/02/20 22 Colonoscopy completed Pierre Ybarra MD Attn: Accounting,[address] , [place], [address], [place] [facility] 01/03/2022 08:49:10 12/27/19 22 EGD completed Pierre Ybarra MD Attn: Accounting,[address] [facility], [place], [address], [facility] - [facility] 12/31/2021 14:01:19 01/19/20 21 Colonoscopy completed Pierre Ybarra MD Attn: Accounting,[address] [facility], [place], [address], [facility] - [facility] 01/19/2021 08:52:54 04/01/20 19 Hemodialysis via av fistula completed Mirella Wang [facility] - SI 04/22/2019 09:36:25 Hemodialysis via av fistula completed Pierre Ybarra MD Attn: Accounting,[address] [facility], [place], [address], [facility] - [facility] 05/17/2016 12:05:29 Caesarean Section completed September [facility] - [facility] 04/29/2014 11:32:08 Carpal tunnel surgery completed September [facility] 04/29/2014 11:32:08 Imaging Results None recorded. Procedure Notes None recorded. Medical Equipment None Reported. Allergies Allergen ID Allergen Name Allergen Category Reaction Reaction Severity Criticality Documentation Date Start Date Code Code System Note Provider Name and Address Organization Details Recorded Time 643353 ciproflox acin medicatio n Not available Not available Not available 05/01/2021 2551 RxNorm Other react ions and sever ities : 'Adve rse react ion to subst ance' . Pierre Ybarra MD Attn: Accountin g,[address] [facility], [place], [address], [facility] - [facility] 4 10:17:44 677429 Eliquis medicatio n Not available Not available Not available 10/03/2022 41256 36 RxNorm Bleed ing Pierre Ybarra MD Attn: Accountin g,[address] [facility], [place], [address], [facility] - [facility] 3 09:58:30 1785 Product containin g penicilli n (product) medicatio n other Not available Not available 04/29/2014 66300 8001 SNOMED ? Pierre Ybarra MD Attn: Accountin g,[address] [facility], [place], [address], [place] [facility] 7 10:10:43 1786 Cipro medicatio n rash Not available [facility] 04/29/201476830 3 RxNorm Pierre Ybarra MD Attn: Melissa geller,[address] , [place], [address], [place] 4 14:48:41 Medications [...] Available prednisol one acetate 1 % eye drops,[facility] 05/25 completed Not Available Not Available Not [...] completed Not Available Not Available Not Available [facility] [employer] active Not Available Not Roxi ilable [...] Updated DateTime 5 144.78 cm 45 kg/m2 68382.2 1 g 85 /min 100 % 100 % 124 mm[Hg] 74 mm[Hg] Seble Martell MA [facility] 5 09:19:49 Date Recorded Body height Body mass index (BMI) Body weight Respiratory rate Oxygen saturation Oxygen saturation in Arterial blood by Pulse oximetry Heart rate Systolic blood pressure Diastolic blood pressure Provider Name and Address Organization Details Last Updated DateTime 4 144.78 cm 48.6 kg/m2 682082. 49 g 18 /min 97 % 97 % 74 /min 124 mm[Hg] 60 mm[Hg] Tracey Cuadra MA [facility] 4 09:16:48 Date Recorded Body height Body mass index (BMI) Body weight Heart rate Oxygen saturation Oxygen saturation in Arterial blood by Pulse oximetry Body temperature Respiratory rate Systolic blood pressure Diastolic blood pressure Provider Name and Address Organization Details Last Updated DateTime 5 144.78 cm 46.3 kg/m2 55096.0 5 g 91 /min 93 % 93 % 99 [degF] 18 /min 136 mm[Hg] 66 mm[Hg] Samantha Moreno MA [facility] 5 11:50:02 Date Recorded Body height Body mass index (BMI) Body weight Heart rate Oxygen saturation Oxygen saturation in Arterial blood by Pulse oximetry Body temperature Systolic blood pressure Diastolic blood pressure Provider Name and Address Organization Details Last Updated DateTime 4 144.78 cm 47.5 kg/m2 84472.8 8 g 80 /min 97 % 97 % 97.8 [degF] 130 mm[Hg] 70 mm[Hg] Tracey Cuadra MA [facility] 4 14:33:11 Date Recorded Body height Body mass index (BMI) Body weight Oxygen saturation Oxygen saturation in Arterial blood by Pulse oximetry Respiratory rate Heart rate Systolic blood pressure Diastolic blood pressure Provider Name and Address Organization Details Last Updated DateTime 4 144.78 cm 45.6 kg/m2 33979.2 7 g 96 % 96 % 16 /min 94 /min 104 mm[Hg] 58 mm[Hg] Tracey Cuadra [place] - [facility] 4 10:12:12 Social History Question Answer Notes LastModified by Organizat ion Details LastModified Time Tobacco Smoking Status Former Smoker September HEYDI Zeng [place] - [facility] 04/29/2014 11:32:07 Are You Blind [...] History Nothing Reported. Medical History Condition Response High Blood Pressure Y Kidney or Bladder Problems Y Diabetes Y High Cholesterol Y Hypertension Y Gynecological HistoryNo gynecological history recorded. Obstetrics History GPAL:G 0 P 0 0 0 0 Immunizations Vaccine Type Date Status Note Provider Nam e and Address Organization Details Recorded Time Influenza, split virus, quadrivalent, preservative 8 completed Not Available [facility] 06/27/2023 21:41:38 Influenza, split virus, quadrivalent, preservative 0 completed Not Available [facility] 06/27/2023 21:41:37 Influenza, split virus, quadrivalent, preservative 1 completed Not Available [facility] 06/27/2023 21:41:38 COVID-19 vaccine, vector-nr, rS-Ad26, PF, 0.5 mL 1 completed Not Available [facility] 06/27/2023 21:41:38 SARS-COV-2 (COVID-19) vaccine, UNSPECIFIED 1 completed Not Available [facility] 06/27/2023 21:41:38 Influenza, split virus, trivalent, preservative 6 completed Not Available [facility] 06/27/2023 21:41:38 Influenza, split virus, quadrivalent, PF 3 completed Not Available [facility] 06/27/2023 21:41:38 influenza, unspecified formulation 2 completed Not Available [facility] 06/27/2023 21:41:38 pneumococcal polysaccharide PPV23 7 completed Not Available [facility] 06/26/2019 02:46:40 Tdap 7 completed Not Available [facility] 06/26/2019 02:49:13 influenza, O4P1-5134 5 completed Not Available [facility] 06/27/2023 21:41:38 Pneumococcal conjugate PCV 13 5 completed Not Available [facility] 06/27/2023 21:41:38 Influenza, split virus, quadrivalent, preservative 6 completed Not Available [facility] 06/27/2023 21:41:38 Pneumococcal conjugate PCV20, polysaccharide [id number] conjugate, adjuvant, PF 3 completed Tracey Cuadra MA [facility] [place] [facility] 05/29/2023 11:52:33 Influenza, split virus, quadrivalent, preservative 7 completed Not Available [facility] 06/27/2023 21:41:38 Past Encounters Encounter ID Performer Location Encounter Start Date Encounter Closed Date Diagnosis/Indication Diagnosis SNOMED-CT Code Diagnosis ICD10 Code Diagnosis Note [id number] Pierre Ybrara MD [facility] (Adult Med) [address] [place] [address] [phone] 0 04/29/2014 11:15:12 04/29/2014 12:36:00 Herpetic gingivostomatitis [id number] Diabetes mellitus 89742672 HbA1c done 04/18/14 was 6.4 Continue current dose of Glimepirid e unless Dr Pastor thinks otherwise. Lowest blood sugar was 74 (without any symptoms) FBS 90/114/120 No role for QID testing, once a day testing should suffice. End-stage renal disease 99643146 Cough 81676918 Conserva ti ve management [id number] Pierre Ybarra MD [facility] (Adult Med) [address] [place] [address] 77904-146 0 08/03/2014 14:54:11 08/03/2014 16:29:19 Diabetes mellitus 92789203 HbA1c done 07/27/14 was 5.2, she did lose 29lbs since her visit in March 2014 and in view of her hemodialys is, I will stop her Glimepirid e and monitor her blood sugar closely Pneumonia 519678680 59 y /o WF who was last seen in this office 04/29/2014 , in the interim she was admitted to the hospital 04/29/2014 - 4 with Hypotensio n during HD and Pneumonia. Her CXR 04/29/2014 did not reveal an infiltrate . Pneumovax 2013?, she needs Prevnar-13 Discharge summary from the hospital will be useful [id number] MD [facility] (Adult Med) [address] [place] [address] [phone] 12/01/2014 09:51:20 12/01/2014 10:43:52 Osteoarthritis 237228524 She was previously seen at [place] and she was told she would need TKR, however she was too heavy. She has since lost 55lbs and did not benefit from knee injections Diabetes mellitus 27466157 Labs are acceptable Screening mammography 56462071 [id number] MD [facility] (Adult Med) [address] [place] [address] [phone] 0 03/14/2015 09:46:40 03/14/2015 10:26:05 Diabetes mellitus 02792810 E11.9 E78.0 Labs are acceptable Osteoarthritis 848379290 M19.90 She currently follows up with Dr. Michaels [facility] [id number] MD [facility] (Adult Med) [address] [place] [address] [phone] 07/13/2015 09:35:26 07/13/2015 10:31:32 Disorder of lipid metabolism 012668270 E78.9 Her LDl is suboptimal , I will increase her Lipitor to 80mg po daily. Side effects were discussed Diabetes mellitus 459409 09 E11.9 E78.0 Labs were discussed. Polyp of colon 87236275 K63.5 She thinks that her colonoscop y is due, I have called [facility] for a copy of her last colonoscop y, if they do not have it, the other option is [facility] [id number] MD [facility] (Adult Med) [address] [place] [address] [phone] 0 11/14/2015 11:01:16 11/14/2015 12:50:30 Disorder of lipid metabolism 805111651 E78.9 Her LDl is better. Diabetes mellitus 869534 09 E11.9 E78.0 Labs were discussed. [id number] MD [facility] (Adult Med) [address] [place] [address] [phone] 05/17/2016 10:39:46 05/17/2016 12:17:12 Atrial fibrillation 30783817 I48.91 She is s/p ablation and she has a loop recorder in place Hyperlipidemia 58622856 E78.5 Type 2 dwayne betes mellitus without complication 434514680 E11.9 Diabetes mellitus 295889 09 E11.9 Labs were discussed. [id number] MD [facility] (Adult Med) [address] [place] [address] 83726-025 0 10/14/2016 11:01:58 10/14/2016 11:32:16 Paroxysmal atrial flutter 550080631 I48.92 Discharge summary from her 07/2016 admission. Disorder o f hyperalimentation 397561517 R63.2 Type 2 dwayne betes mellitus 26631323 E11.9 Hyperlipidemia 30067729 E78.5 Mild recur rent major depression 66206903 F33.0 [id number] Pierre Ybarra MD [facility] (Adult Med) [address] [place] [address] [phone] 0 03/11/2017 09:36:54 03/11/2017 10:18:12 Otitis media 33239553 H66.93 She has multiple allergies Headache 32105670 R51 Pruritic rash 20191351 L 28.2 Administra tion of pneumococcal vaccine 09703659 Z23 Administra tion of diphtheria, pertussis, and tetanus vaccine 062783503 Z23 [id number] MD [facility] (Adult Med) [address] [place] [address] 72491-440 0 07/16/2018 14:59:07 07/17/2018 09:06:14 Screening for malignant neoplasm of breast 398031884 Z12.31 Type 2 dwayne betes mellitus without complication 482339154 E11.9 History of total hysterectomy 671244246 Z90.102 [id number] MD [facility] (Adult Med) [address] [place] [address] [phone] 0 08/25/2018 08:33:20 08/26/2018 11:29:23 Arthritis 9135143 M19.90 Trial of Meloxicam if there is no objection from her nephrologi st.Tylenol PRN [id number] [facility] (Adult Med) [address] [place] [address] 04/22/2019 09:19:33 04/22/2019 10:20:06 Chest pain 69789572 R07.9 Went to [facility] ER for an acute 30 minute [...] episode that brought her to EDFollow[facility] with [facility] cardiology and has an upcoming appointmen t.- Advised to keep appointmen t with cardiology Gastroesop hageal reflux disease without esophagitis 567957049 K21.9 Hospital said her chest pain may [...] and exercise. Paresthesi a of lower extremity 960157318 R20.2 Complainin g of intermitte nt episodes [...] Follow-up with Dr. Ybarra if symptoms continue [id number] MD [facility] (Adult Med) [address] [place] [address] [id number] 0 05/25/2019 11:38:31 05/25/2019 12:43:18 Follow-up visit 294408912 Z09 Generalize d osteoarthritis of the hand 184976611 M15.9 Pain in lower limb 79166 006 M79.604 M79.649 [id number] MD [facility] (Adult Med) [address] [place] [address] [phone] 0 06/22/2019 11:21:47 06/22/2019 12:15:58 Follow-up visit 491027784 Z09 Mixed anxi ety and depressive disorder 428135357 F41.8 Osteoarthr itis of knee 130025459 M17.9 Cardiomegaly 4027984 I51 .[address] scan Disorder o f coronary artery 457919175 I77.[address] scan [id number] MD [facility] (Adult Med) [address] [place] [address] [phone] 0 08/03/2019 10:22:56 08/04/2019 11:08:51 Neuropathy 241133094 G62.9 Possibly a local issue and less likely vascular or diabetic neuropathy Postmenopausal state 764 51742 Z78.0 [id number] MD [facility] (Adult Med) [address] [place] [address] 79866-089 0 08/13/2019 15:46:27 08/16/2019 12:49:05 Abscess 129389729 L02.91 Screening for malignant neoplasm of breast 632483364 Z12.31 [id number] MD [facility] (Adult Med) [address] [place] [address] 14329-863 0 09/21/2019 09:31:00 09/21/2019 15:49:40 Disorder of lipid metabolism 415260045 E78.9 Follow-up visit 80840096 9 Z09 [id number] MD [facility] (Adult Med) [address] [place] [address] 07508-804 0 03/07/2020 10:27:09 03/07/2020 12:43:35 Mixed anxiety and depressive disorder 253880479 F41.8 Neuropathy 516744265 G62 .9 Her EMG/NCS suggests a right peroneal neuropathy .She now complains of lower back pain for the last 6 weeks Chronic low back pain 27 0248836 M54.5 Medication monitoring 39 2103848 Z51.81 Type 2 dwayne betes mellitus without complication 744257310 E11.9 Spasmodic movement 84277 6004 R25.3 [id number] MD [facility] (Adult Med) [address] [place] [address] 26844-868 0 03/30/2020 09:22:24 03/31/2020 07:10:35 Pruritic rash 64002087 L28.2 Contact dermatitis ? Degenerati on of lumbar intervertebral disc 19225366 M51.36 The MRI suggests an annular bulge and degenerati ve lumbar disc disease [id number] MD [facility] (Adult Med) [address] [place] [address] 93327-411 0 12/05/2020 10:38:15 12/05/2020 20:41:58 Screening mammography of bilateral breasts 6334490963 13943 Z12.31 Diabetes mellitus 784222 09 E11.9 Labs were discussed. [id number] Myron Can MD [facility] [place] [facility] [address] [address]77-[address]28 2 01/25/2021 11:31:14 01/26/2021 15:45:21 Diabetes mellitus 92323378 E11.9 Diabetic p eripheral neuropathy 515876798 E11.40 Morbid obesity 488016056 E66.01 Osteoarthr itis of knee 920758161 M17.11 M17.12 Has failed all nonop tx, needs TKRRec Bariatric consult [id number] MD [facility] (Adult Med) [address] [place] [address] 99213-622 0 05/01/2021 09:29:54 05/02/2021 08:03:19 Diabetes mellitus 48754891 E11.9 Immunization due 4386723 08 Z28.3 She plans to get her SARS COVID 19 vaccine booster [id number] MD [facility] (Adult Med) [address] [place] [address] 00044-418 0 07/05/2021 11:08:43 07/05/2021 13:29:40 Painful mouth 034720016 K13.79 Diabetes mellitus 899858 09 E11.9 Her last HBA1C was 5.1, I am of the opinion that her elevated BS may be from her recent course of CCS History of SARS-CoV-2 29 89846282 32138541 Z86.16 Immunization advised 310 525187 Z71.9 Follow-up visit 74232501 9 Z09 [id number] MD [facility] (Adult Med) [address] [place] [address] 26249-143 0 08/16/2021 10:31:13 08/17/2021 11:52:54 Diabetes mellitus 95560426 E11.9 Her last HBA1C was 5.1. Immunization advised 310 371103 Z71.9 Neuropathy 429929192 G62 .9 Her previous EMG/NCS had suggested a right peroneal neuropathy .Increase Gabapentin , side effects were discussed. Musculoskeletal pain 279 685590 M79.10 Continue TylenolXra ys [id number] MD [facility] (Adult Med) [address] [place] [address] 88990-287 0 08/30/2021 10:05:12 08/30/2021 12:14:50 Degeneration of lumbar intervertebral disc 26629105 M51.36 The MRI suggests an annular bulge and degenerati ve lumbar disc diseaseXra ys confirm DDDCDA and DS neededCons ider Tramadol once the lab results are reviewed Medication monitoring 39 9036994 Z51.81 Tremor 81042610 R25.1 Screening for malignant neoplasm of breast 156814861 Z12.31 Degenerati on of thoracic intervertebral disc 20041679 M51.34 Inflammati on of sacroiliac joint 76165635 M46.1 [id number] MD [facility] (Adult Med) [address] [place] [address] 20368-483 0 10/03/2022 08:48:02 10/04/2022 08:15:48 Immunization advised 258446515 Z71.9 Pain in left thumb 68720 86945 795228 M79.645 Diabetes mellitus 940556 09 E11.9 Her last HBA1C was 5.1. Screening for malignant neoplasm of breast 147605168 Z12.31 Follow-up visit 00250212 9 Z09 History of malignant neoplasm of vulva 690959728 Z85.44 History of malignant neoplasm of colon 549216096 Z85.038 History of partial resection of colon 930812502 Z90.49 [id number] MD [facility] (Adult Med) [address] [place] [address] 79595-530 0 12/26/2022 12:17:08 12/27/2022 13:36:07 Dysphonia 30111943 R49.9 Follow-up visit 57756545 9 Z09 Medication review done by doctor 855100888 Z76.89 [id number] MD [facility] (Adult Med) [address] [place] [address] 04729-835 0 05/29/2023 10:28:01 05/30/2023 16:15:32 Body mass index 40+ - severely obese 079178304 Z68.42 History of diabetes mellitus 782292403 Z86.39 Bilateral shoulder joint pain 3816880276 2782383 M25.512 M25.511 Administra tion of pneumococcal vaccine 85771320 Z23 Postmenopausal state 764 47523 Z78.0 Medication monitoring 39 7879709 Z51.81 Chronic back pain 404612 002 G89.29 Chronic pain 59520024 G8 9.29 Immunization advised 310 786471 Z71.9 [id number] MD [facility] (Adult Med) [address] [place] [address] 01496-626 0 08/07/2023 08:57:46 08/11/2023 09:27:17 Sore throat 034658950 J02.9 Cervical lymphadenitis 6070765 I88.9 Osteoporosis 44780619 M8 1.0 Pt education [id number] MD [facility] (Adult Med) [address] [place] [address] 00998-556 0 10/09/2023 08:27:58 10/13/2023 19:34:19 Screening for malignant neoplasm of breast 109317616 Z12.31 Impaired mobility 419059 05 Z74.09 Recurrent falls 04264752 2 R29.6 Osteoarthr itis of knee 294937016 M17.9 Immunization advised 310 730535 Z71.9 Diabetes mellitus 363037 09 E11.9 Start Trulicity, GI side effects were discussed Obesity 884551908 E66.9 [id number] MD [facility] (Adult Med) [address] [place] [address] 76782-169 0 11/25/2023 13:58:43 11/27/2023 15:16:46 Mixed anxiety and depressive disorder 418145330 F41.8 She is on both Citalopram and Duloxetine , she may not need both and I will wean her off the Citalopram Osteoarthr itis of knee 285827754 M17.9 Recurrent falls 05672693 2 R29.6 Diabetes mellitus 494927 09 E11.9 Increase Trulicity to 1.5 mg weekly, GI side effects were discussedS he has no history of Thyroid cancer.If the 1.5 mg dose is unavailabl e, she should continue the 00..75 mg dose. Abnormal g ait due to impairment of balance 308049264 R26.89 She has recurrent falls Weakness o f right lower limb 0943731585 41450 M62.81 [id number] [facility] [address] [place] [address] 31859-457 0 02/05/2024 09:26:22 02/06/2024 12:21:14 Diabetes mellitus 83274559 E11.9 HBA1C 4.9%On Trulicity to 1.5 mg weekly. Immunization advised 310 492697 Z71.9 [id number] MD [facility] (Adult Med) [address] [place] [address] 92480-403 0 07/15/2024 08:59:48 07/19/2024 12:34:31 History of malignant neoplasm of colon 466072501 Z85.038 Colonoscop y 03/11/2023 Q 3 years Chest wall pain 93600856 6 R07.89 Abdominal pain 01550868 R10.9 [id number] Pierre Ybarra MD [facility] (Adult Med) [address] [place] [address] 11/04/2024 11:22:08 11/05/2024 09:44:22 Lesion of liver 325944088 K76.9 MRI 08/25/2024 Hemangioma , iron deposits (Liver and spleen). There is a suggestion of hemosidero sis and it is unclear to me if this is normal in a patient with ESRF on HD. I will seek the opinion of her oncologist /hematolog ist. Note from 5CT 07/29/2024 Hepatic lesion 2 cm (Slightly larger), MRI recommende d MRI scan abnormal 144414 003 R93.89 MRI Hemangioma , iron deposits (Liver and spleen) Screening mammography 24 379336 Z12.31 Abscess of buttock 03985 003 L02.31 Diabetes mellitus 478750 09 E11.9 Increase Trulicity to 3 mg weekly, GI side effects were discussed. Upper resp iratory tract finding 125150165 R09.89 Health Concerns Section Related Observation LastModified by Organization Detai ls LastModified Time None Recorded Concern Status LastModified by Organization Details LastModified Time None Recorded Advance Directives Directive None Recorded Payers Encounter Date Sequence Insurance Name Policy Number Policy Hodgson Covered Member ID Hodgson Member ID Guarantor Name 10/09/2023 2 [place] WHEN MED[place]ARE OR MEDICARE REPLACEMENT PRIMARY) Daniel Dahmm [id number] Daniel Dahmm 10/09/2023 1 [facility] (MEDICARE REPLACEMENT/AD VANTAGE - PPO) [id number] Daniel S Dahmm [id number] Daniel Dahmm 11/25/2023 2 [place]ARE OR MEDICARE REPLACEMENT PRIMARY) Daniel Dahmm [id number] Daniel Dahmm 11/25/2023 1 [facility] (MEDICARE REPLACEMENT/AD VANTAGE - PPO) [id number] Daniel S Dahmm [id number] Daniel Dahmm 02/05/2024 2 [place] OR MEDICARE REPLACEMENT PRIMARY) Daniel Dahmm [id number] Daniel Dahmm 02/05/2024 1 [facility] (MEDICARE REPLACEMENT/AD VANTAGE - PPO) [id number] Daniel S Dam [id number] Daniel Dahmm 07/15/2024 2 [place] WHEN [place]ARE OR MEDICARE REPLACEMENT PRIMARY) Daniel Dam [id number] Daniel Dahmm 07/15/2024 1 [facility] (MEDICARE REPLACEMENT/AD VANTAGE - PPO) [id number] Daniel S Dam [id number] Daniel Dahmm 11/04/2024 2 [place] WHEN [place]ARE OR MEDICARE REPLACEMENT PRIMARY) Daniel Dam [id number] Daniel Dahmm 11/04/2024 1 [facility] (MEDICARE REPLACEMENT/AD VANTAGE - PPO) [id number] Daniel S Dam [id number] Daniel Dam Notes Date Note Type Note Provider Name and Address Organization Details Recorded Time 10/09/2023 text/html KneeReported bypatient.Location:[facility] Quality:aching Severity:severe Duration:years Timing:acute; chronic Context:fall Associated [...] was originally dispensed after her admission to [facility] with COVID a few years ago.She is [...] cancer. Pierre Ybarra MD Attn: Accounting,[address] [place], [address], [facility] 10/09/2023 11:20:35 11/25/2023 text/html Diabetes [...] and Pierre Ybarra MD Attn: Accounting,[address] [facility], [place], [address], [facility] 12/22/2023 08:25:55 02/05/2024 text/html A visitShe ga ve me a shot for my back, once every 6 months Admitted 12/31/23-01/01/24 with SVT and she is s/p ablation, she was also seen by her outbound sales specialist and may be on Prolia. Pierre Ybarra MD Attn: Accounting,[address] [facility], [place], [address], [facility] 02/05/2024 11:16:23 07/15/2024 text/html Abdominal [...] corner of a table. Seen by the outbound sales specialist, her Prolia will be administered soon. Pierre Ybarra MD Attn: Accounting,[address] [place], [address], [facility] 07/15/2024 13:46:14 11/04/2024 text/html Diabetes F/URepo rted bypatient.Associated Symptoms:weight gain (5 lbs) Follow upI have to get a CT ColographThat is like not working any more, I am not losing ... Ms. Rivera returns, she thinks she has allergies, she has been coughing and sneezing, there is no reported shortness of breath or chest pain. Her remelt sugar boiler has ordered a CT kg and she [...] hemosiderosis. Pierre Ybarra MD Attn: Accounting,[address] [place], [address], [facility] 11/04/2024 13:56:10 OBGyn Episode No OBEpisode recorded.
--- OUTSIDE RECORDS SUMMARY | 2024-11-08 12:08 | XMS_ITS | Data Portability ---
Author Organization [place] [facility], Main Office Address [address] [place] [address] Care Team Providers Care Field Coil Winder Name Role Phone SHRUTHI YBARRA Primary Care Provider SHRUTHI YBARRA Referring Provider Assessment Encounter Date Assessment Date Assessment [...] with the thumb and her weight discussed. [email or web address] Not available 10/17/2022 09:47:57 10/30/2023 10/30/2023 pain [...] DO Not Attach Compendium, Do Not Delete/merge, [address] 09:44:24 Surgeries None recorded. Imaging None recorded. Medication Orders Kenalog 10 mg/mL suspension for injection [address] [facility], [address] [place], [address], 3 09:45:06 ropivacaine (PF) 5 mg/mL (0.5 %) injection solution [address] [facility], [address] [place], [address], 3 09:45:06 Patient TargetsNo targets recorded. Patient InstructionsNo instructions recorded. Reason for Referral None Reported. Results Created Date Observation Date Name Description Value Unit Range Abnormal Flag Note LastModifiedBy Organization Detail LastModifiedTime 10/24/1910/22/2021 XR, hip + pelvi s, unila teral , 2 or 3 view No observ ation record ed. [id number] Not Available 08/07/2022 09:21:59 11/29/19 MRI, pelvi s, w/o contr ast [facility] [address] [address] [phone] Patien t Name: JARRED PEDERSON Access ion #: [id number] Sex: F : 1954 Locati on: IND Attend ing Physic gloria: Madison estrada Physic gloria: LORNA RIOS Exam Date: 022 7:59 AM [...] oas tendon . Page 1 [facility] 2 [facility] joel Name: JARRED PEDERSON Access ion #: [id number] Sex: F : 1954 Exam Date: [...] 12:12 AM (CT) Page 2 of 2 [id number] [facility] (Imaging) [address] [place], [address], 08/07/2022 09:21:59 11/29/19 22 11/27/2021 MRI, pelvi s, w/o contr ast No observ ation record ed. [id number] [facility] [address], [place], [address], 08/07/2022 09:21:59 Result Notes None recorded. Problems Name Problem SNOMED Code Status Onset Date Resolution Date Notes Provider Name and Address Organization Details Recorded Time Pain in left sacroilia c joint 52841029665 086108 Active 2021 Not Available [facility] 3 09:16:17 Extreme obesity with alveolar hypoventi lation 464624588 Active Not Available [facility] 3 09:16:17 Morbid obesity 054999916 Active 2021 Not Available [facility] 3 09:16:17 Osteoarth ritis of knee 563600172 Active Not Available [facility] 3 09:16:17 Pain of left hip joint 63435889461 9100 Active 2021 Not Available [facility] 3 09:16:17 Trochante kelly bursitis of left hip 98583458681 9103 Active 2021 Not Available [facility] 3 09:16:17 Hypertens anila disorder 21380010 Active Not Available [facility] 3 09:16:18 Osteoarth ritis 086691736 Active Not Available [facility] 3 09:16:18 Hyperlipi demia 60831775 Active Not Available [facility] 3 09:16:18 Supravent ricular tachycard ia 3924379 Active history of, s/p ablation Not Available [facility] 3 09:16:18 Diabetes mellitus 78903703 Active Not Available [facility] 3 09:16:18 Obstructi ve sleep apnea syndrome 77851286 Active Not Available [facility] 3 09:16:18 Cor pulmonale 22729769 Active Not Available [facility] 3 09:16:18 Pain of left hand 13413977921 9103 Active 2022 Kerri Conde, LUZ null, [place] [facility] 3 09:28:40 Osteoarth rosis of the carpometa carpal joint of the thumb 01876973 Active 2022 Lorna Bauer MD [address], [employer], [place], [address] , [employer] [facility] 3 09:48:06 Bilateral osteoarth ritis of knees 91182870356 9107 Active 2022 Lorna Bauer MD [address], [address] [employer], [place], [address] , [employer] 3 09:48:12 Foreign body of foot 670567104 Active 2023 Lisandro Omer DPM [address] [employer], [employer], [place], [address] , [employer] 4 12:01:15 Problem Notes None recorded. Procedures Surgical History Date Name Laterality Status Provider Name and Address Organization Details Recorded Time 4 Removal of Foreign Body completed Lisandro Omer DPM [address], [employer], [place], [address], [employer] 10/30/2023 12:00:23 3 Ortho - Cortisone Injection completed Lorna Bauer MD [address], [employer], [place], [address], [employer] [facility] 10/17/2022 09:49:07 Imaging Results None recorded. Procedure Notes None recorded. Medical Equipment None Reported. Allergies Allergen ID Allergen Name Allergen Category Reaction Reaction Severity Criticality Documentation Date Start Date Code Code System Note Provider Name and Address Organization Details Recorded Time 56900 Product containin g penicilli n (product) medicatio n Not available Not available Not available 08/07/2022 85075 8001 SNOMED nose bleed s Not Available [facility] 3 09:21:54 34443 Cipro medicatio n hives Not available Not available 08/07/202276726 3 RxNorm Not Available [facility] 3 09:21:55 Medications Name Sig Start Date [...] 10 mg by injection route. 2022 active [facility]: 0003- 0494- 20 Not Available Not Available [...] injection administe red by the provider active [facility]: 0409- 4276- 17 Not Available Not Available [...] Updated DateTime 10/17/2022 142.24 cm 46 kg/m2 70114.44 g Kerri Conde CNA [place] [employer] [facility] 10/17/2022 09:28:15 Date Recorded Body mass index (BMI) Body height Body weight Provider Name and Address Organization Details Last Updated DateTime 10/25/2021 51.6 kg/m2 142.24 cm 058426.25 g Not Available [facility] 08/07/2022 09:12:59 Date Recorded Body height Body mass index (BMI) Body weight Oxygen saturation Oxygen saturation in Arterial blood by Pulse oximetry Body temperature Heart rate Systolic blood pressure Diastolic blood pressure Provider Name and Address Organization Details Last Updated DateTime 142.24 cm 46 kg/m2 91213.4 4 g 97 % 97 % 97.3 [degF] 90 /min 162 mm[Hg] 82 mm[Hg] HERRERA Jacinto OR [employer] [facility] [employer] [facility] 11:45:02 Date Recorded Body mass index (BMI) Body height Body weight Provider Name and Address Organization Details Last Updated DateTime 11/22/2021 52.7 kg/m2 142.24 cm 630294.21 g Not Available [facility] 08/07/2022 09:13:00 Date Recorded Body mass index (BMI) Body height Body weight Provider Name and Address Organization Details Last Updated DateTime 12/04/2021 52.7 kg/m2 142.24 cm 556743.21 g Not Available [facility] 08/07/2022 09:13:00 Social History Question Answer Notes LastModified by [employer] Details LastModified Time Tobacco Smoking Status Former Smoker Not Available [facility] 08/07/2022 09:12:32 What Was The Date Of Your Most Recent Tobacco Screening? 10/30/2023 [email or web address] Information not available 10/30/2023 Sex: Unknown Functional Status Question Answer Note LastModified by Organ[employer]at [employer] Details LastModified Time What is your occupation? disabled [id number] Information not available 08/07/2022 Mental Status None recorded. Family History Relationship Description Onset Age of this Age Resolved Age Notes LastModified by Organization Details LastModified Time Unspecified Relation Family history of malignant neoplasm [id number] Not available 08/07/2022 09:12:45 Unspecified Relation Hypertensive disorder [id number] Not available 08/07/2022 09:12:45 Unspecified Relation Diabetes mellitus [id number] Not available 08/07/2022 09:12:45 Unspecified Relation Kidney disease [id number] Not available 08/07/2022 09:12:45 Medical History Condition Response COPD Y ARTHRITIS Y DIABETES, TYPE Y GOUT Y Gynecological HistoryNo gynecological history recorded. Obstetrics History GPAL:G 0 P 0 0 0 0 Immunizations Vaccine Type Date Status Note Provider Nam e and Address Organization Details Recorded Time Influenza, split virus, quadrivalent, PF 03/09/2013 completed Not Available [facility] 09:21:30 Past Encounters Encounter ID Performer Location Encounter Start Date Encounter Closed Date Diagnosis/Indication Diagnosis SNOMED-CT Code Diagnosis ICD10 Code Diagnosis Note [id number] Lorna Bauer MD [facility] [place] [address] [place] [id number] 10/25/2021 00:00:00 10/25/2021 11:34:45 [id number] Lorna Bauer MD [facility] [place] [address] [place] [id number] 11/22/2021 00:00:00 11/22/2021 10:41:11 [id number] Lorna Bauer MD [facility] [place] [address] [place] [id number] 12/04/2021 00:00:00 12/04/2021 14:50:11 [id number] Lorna Bauer MD [facility] [place] [address] [place] [id number] 10/17/2022 09:24:42 10/17/2022 10:07:04 Pain in left sacroiliac joint 2501037765 9109847 M53.3 Pain of le ft hip joint 1638452894 35373 M25.552 Trochanter ic bursitis of left hip 2100189998 81726 M70.62 Pain of left hand 445349 8551 22571 M79.642 Osteoarthr osis of the carpometacarpal joint of the thumb 34813242 M18.9 M18.12 Bilateral osteoarthritis of knees 7441681730 95438 M17.0 Morbid obesity 596564052 E66.01 [id number] Lisandro Omer DPM [facility] [place] [address] [address] 10/30/2023 11:12:02 10/30/2023 12:28:21 Foreign body of foot 298293897 S99.821A Health Concerns Section Related Observation LastModified by Organization Detai ls LastModified Time None Recorded Concern Status LastModified by Organization Details LastModified Time None Recorded Advance Directives Directive None Recorded Payers Encounter Date Sequence Insurance Name Policy Number Policy Hodgson Covered Member ID Hodgson Member ID Guarantor Name 10/17/2022 2 [place]ARE OR MEDICARE REPLACEMENT PRIMARY) Jarred S Dam [id number] Jarred S Dahmm 10/17/2022 1 [facility] (MEDICARE REPLACEMENT/AD VANTAGE - PPO) [id number] Jarred S Dahmm [id number] Jarred S Dahmm 10/30/2023 2 [place]ARE OR MEDICARE REPLACEMENT PRIMARY) Jarred S Dahmm [id number] Jarred S Dahmm 10/30/2023 1 [facility] (MEDICARE REPLACEMENT/AD VANTAGE - PPO) [id number] Jarred Campbell [facility] [id number] Jarred Campbell [facility] Notes Date Note Type Note Provider [...] change in bowel/bladder habits;weakness;sw elling Not Available [employer] 10/25/2021 11:34:45 11/22/2021 text/html Hip(s)Reported bypatient.Location :left; [...] change in bowel/bladder habits;weakness;sw elling Not Available [employer] 11/22/2021 10:41:11 12/04/2021 text/html Back PainReporte d [...] change in bowel/bladder habits;weakness;sw elling Not Available [employer] 12/04/2021 14:50:11 10/17/2022 text/html Patient returns main [...] point. Lorna Bauer MD [address], [place] [address], [place], [address], [employer] 10/17/2022 09:49:33 10/30/2023 text/html Pt RTC for c/o lesion on the rt heel, present, or noticeable for four d. Painful in shoes and during WB. Lisandro Omer DPM [address], [facility], [place], [address], [employer] 10/30/2023 12:01:22 OBGyn Episode No OBEpisode recorded.
--- OUTSIDE RECORDS SUMMARY | 2024-11-08 12:08 | XMS_ITS | Encounter Summary ---
Author Organization [facility] Address [address] [place] [address] Care Team Providers Care Rock Crusher Operator Name Role Phone Pierre Bergeron MD Primary Care Provider Reason for Visit * Reason Comments Post-Op po ra montanez Encounter Details Date Type Department Care Team (Late st Contact Info) Description 11/08/2024 10:30 AM CDT Office Visit [facility] Medical [facility] - Surgery [id number] [place] [address], [address] [place] [address] Jose David Machuca MD [address] [place] [address] [place] [address] Postop check (Primary Dx) Social History Tobacco Use Types Packs/Day Years [...] - Inhaled Oxygen Concentration - - Weight 98.4 kg (217 lb) 11/08/2024 9:39 AM CDT Height 142.2 cm (4' 8) 11/08/2024 9:39 AM CDT Body Mass Index 48.65 11/08/2024 9:39 AM CDT documented in this encounter Functional Status * Is person deaf or have serious hearing difficulty? Answer Date of Assessment Author No 08/22/2020 12:52 PM CDT Emily Guaman RN * Is person blind or have serious difficulty seeing? Answer Date of Assessment Author No 08/22/2020 12:52 PM CDT Emily Guaman RN * Does person have serious difficulty walking/climbing stairs? Answer Date of Assessment Author Yes 08/22/2020 12:52 PM CDT Emily Guaman RN * Does person have difficulty dressing/bathing? Answer Date of Assessment Author No 08/22/2020 12:52 PM CDT Emily Guaman RN * Does person have difficulty doing errands alone? Answer Date of Assessment Author Yes 08/22/2020 12:52 PM CDT Emily Guaman RN documented as of this encounter Mental Status * Does person have difficulty concentrating/remembering/making decisions? Answer Entry Date Author No 08/22/2020 12:52 PM CDT Emily Guaman RN documented in this encounter Patient Instructions * Patient Instructions* Bryson Mcdonald - 11/08/2024 9:41 AM CDT Patient's medications and allergies were reviewed with the patient today. Patient was instructed tocontact primary care physician or ordering provider with any questions regarding medications. documented in this encounter Progress Notes * Jose David Machuca MD - 11/08/2024 10:56 AM CDT Daniel Rivera is a 69 year old female who is here for a postoperative visit following 1. 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 2. Advancement flap closure. The patient is referred by Zaira Dueñas MD. PCP is Pierre Bergeron MD. Incision: Well healed, remaining sutures removed. Thrill/Bruit: Present Plan: Follow up in one month for fistulogram with me documented in this encounter Plan of Treatment Upcoming Encounters Date Type Department Care Team (Late st Contact Info) Description 11/15/2024 9:30 AM CDT Appointment [facility] V[facility] Services [address] [facility], [address] [place] [address] [place] [address] [facility] [address] [place] [address] [place] [address] [phone] 11/18/2024 12:00 PM CDT Office Visit [facility] - Orthopedics [address] [place] [address], [place] [phone] Jennifer Leonard PA-C [address] [place] [phone] documented as of this encounter Visit Diagnoses Diagnosis Postop check- Primary Follow-up examination, following unspecified surgery documented in this encounter Additional Health Concerns Infection Onset Date Last Indicated Resolved Time 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
--- OUTSIDE RECORDS SUMMARY | 2024-11-08 12:08 | XMS_ITS ---
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 Ordering Clinician Indication Dosage Frequency Signature (SIG) Comments Components Mircera 11-05 15:28: 35 Yes [id number] Number of Repeats Allowed: Frequency: VIKAS dosing, every two weeks calcitriol 4 17:00: 14 Yes [id number] Number of Repeats Allowed: Frequency: Three times a week Venofer 3-15 19:31: 02 Yes [id number] Number of Repeats Allowed: Frequency: One time a weekDosesO rdered: Maintenanc e Dose 50 Milligram Route: Intravenou s Dicyclomine HCl 3-14 13:07: 44 Yes Number of Repeats Allowed: Frequency: As needed Vitamin D3 06-30 13:48: 19 Yes Number of Repeats Allowed: Frequency: One time a day Pantoprazol e Sodium 2023-06 2- 18:29: 58 Yes Number of Repeats Allowed: Frequency: One time a day heparin sodium, porcine 2023-06 06:00: 00 Yes [id number] Number of Repeats Allowed: Frequency: Every Dialysis TreatmentD osesOrdere d: Hourly Dose 500 Units/Hr 1:1000 Units/mLRo [place]: Intravenou s Trulicity 6-19 10:16: 01 Yes Number of Repeats Allowed: Frequency: One time a week ondansetron hydrochlori de 12-27 17:06: 39 Yes [id number] Number of Repeats Allowed: Frequency: Every 4 hours as needed Midodrine HCl 12-06 13:19: 31 Yes Number of Repeats Allowed: Frequency: Three times a week on Friday, Friday and Friday traMADol HCl 11-13 13:38: 45 Yes Number of Repeats Allowed: Frequency: As needed Insta-Gluco se 2021-06 06:00: 00 Yes [id number] Number of Repeats Allowed: Frequency: Every 30 minutes as needed acetaminoph en 2021-06 06:00: 00 Yes [id number] Number of Repeats Allowed: Frequency: Every 4 hours as needed Antacid Extra Strength 2021-06 06:00: 00 Yes [id number] Number of Repeats Allowed: Frequency: Every 4 hours as needed loperamide hydrochlori de 2021-06 06:00: 00 Yes [id number] Number of Repeats Allowed: Frequency: Every 4 hours as needed clonidine 2021-06 06:00: 00 Yes [id number] Number of Repeats Allowed: Frequency: Every 4 hours as needed Oxygen 2021-06 06:00: 00 Yes [id number] Number of Repeats Allowed: Frequency: As needed ondansetron hydrochlori de 2021-06 06:00: 00 Yes [id number] Number of Repeats Allowed: Frequency: Every 4 hours as needed heparin sodium, porcine 2021-06 06:00: 00 Yes [id number] Number of Repeats Allowed: Frequency: Every Dialysis TreatmentD osesOrdere d: Loading Dose 1200 Units 1:1000 Units/mLRo [place]: Intravenou s diphenhydra mine hydrochlori de 2021-06 06:00: 00 Yes [id number] Number of Repeats Allowed: Frequency: Every 4 hours as needed Normal Saline Solution 0.9% NaCl 2021-06 06:00: 00 Yes [id number] Number of Repeats Allowed: Frequency: As needed Trelegy Ellipta 3-15 05:00: 00 Yes Number of Repeats Allowed: Frequency: One time a day DULoxetine HCl 2019-06 0-03 05:00: 00 Yes Number of Repeats Allowed: Frequency: One time a day Escitalopra m Oxalate 4-17 05:00: 00 Yes Number of Repeats Allowed: Frequency: One time a day Allopurinol 2016-06 06:00: 00 Yes Number of Repeats Allowed: Frequency: One time a day Lidocaine-P rilocaine 2016-06 06:00: 00 Yes Number of Repeats Allowed: Frequency: Pre-dialys is Renal Vitamin 2016-06 06:00: 00 Yes Number of Repeats Allowed: Frequency: One time a day Aspirin 2016-06 06:00: 00 Yes Number of Repeats Allowed: Frequency: One time a day Atorvastati n Calcium 2016-06 06:00: 00 Yes Number of Repeats Allowed: Frequency: Once a day, at bedtime Problems This patient has no known problems. Procedures Procedure Date / Time Performed Performing Clinician Dayana ce Details AV Graft 2024-10-12 05:00:00 Access Site Upper Arm (Right) Access Use Start Date 2024-10-15 05:00:0 0 AV [id number] 05:00:00 Access Surgeon LILA VANN MD ([id number]),[place], [place] Access Site Upper Arm (Right) Access Use End Date 2024-10-12 05:00:00 DIALYSIS TREATMENT INFORMATION Conventional Hemodialysis Date Type Treatment Start Date Treatment End Date Pre-Treatment Vitals Post-Treatment Vitals Weight Gain BFR DFR Actual UF Dialysis Access November 05, 2024 In-Ce nter Hemod ialys is Treat ment 2024-11-05 T10:18:16. 000Z 2024-11-05 T13:49:17. 000Z BP Sitting (Pre-Dialysis) 164/69 mmHg BP Sitting (Post-D ialysis ) 120/ 45 mmHg Sitting Heart Rate Pre-Dialysis 86 BPM BP Standing (Post-Dialysis) 125/69 mmHg Temperature Pre-Dialysis 98.1 degF Sitting Heart Ra te Post-Dialysis 85 BPM Standing Heart Rate Post-Gladis lysis 80 BPM Temperature Post-Dialysis 98 degF November 03, 2024 In-Center Hemodialysis Treatment 8823-98-45E61:22:44.000Z 0559-98-34K25:50:44.000Z BP Sitting (Pre-Dialysis) 124/71 mmHg BP Sitting (Post-Dialysis) 128/51 mmHg Concurrent Access: falseAV Graft Upper Arm (Right) Arterial BP Standing (Pre-Dialysis) 136/66 mmHg BP Standing (P ost-Dialysis) 109/53 mmHg Sitting Heart Rate Pre-Dialysis 76 BPM Sitting Heart Rate Post-Dialysis 76 BPM Standing Heart Rate Pre-Dialysis 81 BPM Standing Heart Rate Post-Dialysis 78 BPM Temperature Pre-Dialysis 97.8 degF Temperature Post -Dialysis 97.7 degF November 01, 2024 In-Center Hemodialysis Treatment 8976-49-68O47:23:12.000Z 4726-96-56O68:37:12.000Z BP Sitting (Pre-Dialysis) 151/63 mmHg BP Sitting (Post-Dialysis) 115/50 mmHg Concurrent Access: falseAV Graft Upper Arm (Right) Arterial BP Standing (Pre-Dialysis) 150/64 mmHg BP Standing (P ost-Dialysis) 119/41 mmHg Sitting Heart Rate Pre-Dialysis 79 BPM Sitting Heart Rate Post-Dialysis 86 BPM Standing Heart Rate Pre-Dialysis 78 BPM Standing Heart Rate Post-Dialysis 83 BPM Temperature Pre-Dialysis 97.7 degF Temperature Post -Dialysis 97.1 degF October 29, 2024 In-Center Hemodialysis Treatment 9030-65-77A12:03:22.000Z 1374-37-04N71:32:22.000Z BP Sitting (Pre-Dialysis) 183/52 mmHg BP Sitting (Post-Dialysis) 107/43 mmHg Concurrent Access: falseAV Graft Upper Arm (Right) Arterial Sitting Heart Rate Pre-Dialysis 85 BPM Sitting H eart Rate Post-Dialysis 73 BPM Temperature Pre-Dialysis 98.2 degF Temperature Post -Dialysis 98.2 degF October 27, 2024 In-Center Hemodialysis Treatment 4100-65-27Z62:04:49.000Z 5322-06-62T74:32:50.000Z BP Sitting (Pre-Dialysis) 136/62 mmHg BP Sitting (Post-Dialysis) 115/51 mmHg Concurrent Access: falseAV Graft Upper Arm (Right) Arterial BP Standing (Pre-Dialysis) 163/71 mmHg BP Standing (P ost-Dialysis) 132/45 mmHg Sitting Heart Rate Pre-Dialysis 80 BPM Sitting Heart Rate Post-Dialysis 77 BPM Standing Heart Rate Pre-Dialysis 83 BPM Standing Heart Rate Post-Dialysis 75 BPM Temperature Pre-Dialysis 97.8 degF Temperature Post -Dialysis 97.8 degF October 25, 2024 In-Center Hemodialysis Treatment 7771-26-54X24:41:15.000Z 5660-67-94V79:09:16.000Z BP Sitting (Pre-Dialysis) 148/57 mmHg BP Sitting (Post-Dialysis) 114/56 mmHg Concurrent Access: falseAV Graft Upper Arm (Right) Arterial Sitting Heart Rate Pre-Dialysis 75 BPM Sitting H eart Rate Post-Dialysis 78 BPM Temperature Pre-Dialysis 97.6 degF Temperature Post -Dialysis 97.8 degF October 22, 2024 In-Center Hemodialysis Treatment 7243-92-53G06:21:38.000Z 4066-45-53P51:50:38.000Z BP Sitting (Pre-Dialysis) 151/71 mmHg BP Sitting (Post-Dialysis) 116/48 mmHg Concurrent Access: falseAV Graft Upper Arm (Right) Arterial BP Standing (Pre-Dialysis) 148/69 mmHg BP Standing (P ost-Dialysis) 102/38 mmHg Sitting Heart Rate Pre-Dialysis 86 BPM Sitting Heart Rate Post-Dialysis 78 BPM Standing Heart Rate Pre-Dialysis 90 BPM Standing Heart Rate Post-Dialysis 81 BPM Temperature Pre-Dialysis 97.8 degF Temperature Post -Dialysis 97.4 degF October 20, 2024 In-Center Hemodialysis Treatment 4677-56-73K04:23:15.000Z 7415-23-27D82:52:15.000Z BP Sitting (Pre-Dialysis) 157/62 mmHg BP Sitting (Post-Dialysis) 137/52 mmHg Concurrent Access: falseAV Graft Upper Arm (Right) Arterial Sitting Heart Rate Pre-Dialysis 83 BPM Sitting H eart Rate Post-Dialysis 85 BPM Temperature Pre-Dialysis 97.5 degF Temperature Post -Dialysis 97.7 degF October 18, 2024 In-Center Hemodialysis Treatment 6029-38-32G53:34:44.000Z 1731-75-18G03:02:44.000Z BP Sitting (Pre-Dialysis) 141/61 mmHg BP Sitting (Post-Dialysis) 123/52 mmHg Concurrent Access: falseAV Graft Upper Arm (Right) ArterialAV Fistula Upper Arm (Right) Venous BP Standing (Pre-Dialysis) 159/58 mmHg Sitti ng Heart Rate Post-Dialysis 71 BPM Sitting Heart Rate Pre-Dialysis 78 BPM Temperatu re Post-Dialysis 98.4 degF Standing Heart Rate Pre-Dialysis 76 BPM Temperature Pre-Dialysis 97.2 degF October 15, 2024 In-Center Hemodialysis Treatment 4227-73-49M44:22:54.000Z 4761-10-46U96:51:54.000Z BP Sitting (Pre-Dialysis) 137/56 mmHg BP Sitting (Post-Dialysis) 117/48 mmHg Concurrent Access: falseAV Fistula Upper Arm (Right) Arterial Sitting Heart Rate Pre-Dialysis 80 BPM Sitting H eart Rate Post-Dialysis 76 BPM Temperature Pre-Dialysis 98.4 degF Temperature Post -Dialysis 97.7 degF October 11, 2024 In-Center Hemodialysis Treatment 2010-13-48F24:24:51.000Z 7917-91-90T27:56:51.000Z BP Sitting (Pre-Dialysis) 154/69 mmHg BP Sitting (Post-Dialysis) 114/54 mmHg Concurrent Access: falseAV Fistula Upper Arm (Right) Arterial BP Standing (Pre-Dialysis) 168/71 mmHg Sitti ng Heart Rate Post-Dialysis 76 BPM Sitting Heart Rate Pre-Dialysis 81 BPM Temperatu re Post-Dialysis 97.6 degF Standing Heart Rate Pre-Dialysis 85 BPM Temperature Pre-Dialysis 97.8 degF October 08, 2024 In-Center Hemodialysis Treatment 3337-22-07K01:22:02.000Z 5520-17-56J33:50:03.000Z BP Sitting (Pre-Dialysis) 146/65 mmHg BP Sitting (Post-Dialysis) 127/57 mmHg Concurrent Access: falseAV Fistula Upper Arm (Right) Arterial Sitting Heart Rate Pre-Dialysis 82 BPM Sitting H eart Rate Post-Dialysis 79 BPM Temperature Pre-Dialysis 97.3 degF Temperature Post -Dialysis 97.7 degF October 06, 2024 In-Center Hemodialysis Treatment 4786-30-40B20:33:00.000Z 8802-31-54R45:02:30.000Z BP Sitting (Pre-Dialysis) 186/57 mmHg BP Sitting (Post-Dialysis) 103/46 mmHg Concurrent Access: falseAV Fistula Upper Arm (Right) Arterial Sitting Heart Rate Pre-Dialysis 78 BPM BP Standing (Post-Dialysis) 139/84 mmHg Temperature Pre-Dialysis 97.6 degF Sitting Heart Ra te Post-Dialysis 76 BPM Standing Heart Rate Post-Gladis lysis 90 BPM Temperature Post-Dialysis 98 .8 degF October 04, 2024 In-Center Hemodialysis Treatment 3045-18-01V99:34:57.000Z 5555-39-50L87:02:57.000Z BP Sitting (Pre-Dialysis) 170/66 mmHg BP Sitting (Post-Dialysis) 106/36 mmHg Concurrent Access: falseAV Fistula Upper Arm (Right) Arterial Sitting Heart Rate Pre-Dialysis 88 BPM BP Standing (Post-Dialysis) 106/38 mmHg Temperature Pre-Dialysis 98.4 degF Sitting Heart Ra te Post-Dialysis 77 BPM Standing Heart Rate Post-Gladis lysis 76 BPM Temperature Post-Dialysis 97 .8 degF October 01, 2024 In-Center Hemodialysis Treatment 300 mL/min 500 mL/min Concurrent Access: false September 29, 2024 In-Center Hemodialysis Treatment 20 25 -0 4- 23 T1 0: 41 :3 7. 00 0Z 20 25 -0 4- 23 T1 4: 21 :3 7. 00 0Z BP Sitting (Pre-Dial ysis) 114/69 mmHg BP Sitting (Post-Gladis lysis) 111/52 mmHg Concurrent Access: falseAV Fistula Upper Arm (Right) Arterial Sitting Heart Rate Pre-Dialysis 81 BPM Sitting H eart Rate Post-Dialysis 70 BPM Temperature Pre-Dialysis 97.5 degF Temperature Post -Dialysis 97.7 degF September 27, 2024 In-Center Hemodialysis Treatment 2051-01-73Z76:32:00.000Z 4208-27-20F15:10:06.000Z BP Sitting (Pre-Dialysis) 137/58 mmHg BP Sitting (Post-Dialysis) 97/35 mmHg Concurrent Access: falseAV Fistula Upper Arm (Right) Arterial Sitting Heart Rate Pre-Dialysis 81 BPM Sitting H eart Rate Post-Dialysis 73 BPM Temperature Pre-Dialysis 97.2 degF Temperature Post -Dialysis 97.8 degF September 24, 2024 In-Center Hemodialysis Treatment 2725-69-23D65:35:17.000Z 9464-32-58U56:02:17.000Z BP Sitting (Pre-Dialysis) 156/66 mmHg BP Sitting (Post-Dialysis) 103/50 mmHg Concurrent Access: falseAV Fistula Upper Arm (Right) Arterial Sitting Heart Rate Pre-Dialysis 79 BPM Sitting H eart Rate Post-Dialysis 76 BPM Temperature Pre-Dialysis 97.4 degF Temperature Post -Dialysis 97.5 degF September 22, 2024 In-Center Hemodialysis Treatment 8937-37-56V86:36:37.000Z 5085-08-95G99:09:37.000Z BP Sitting (Pre-Dialysis) 153/63 mmHg BP Sitting (Post-Dialysis) 91/49 mmHg Concurrent Access: falseAV Fistula Upper Arm (Right) Arterial Sitting Heart Rate Pre-Dialysis 77 BPM Sitting H eart Rate Post-Dialysis 83 BPM Temperature Pre-Dialysis 97.8 degF Temperature Post -Dialysis 97.6 degF September 20, 2024 In-Center Hemodialysis Treatment 4262-02-13M98:15:00.000Z 2852-41-23P35:45:00.000Z BP Sitting (Pre-Dialysis) 144/66 mmHg BP Sitting (Post-Dialysis) 115/50 mmHg Concurrent Access: falseAV Fistula Upper Arm (Right) Arterial Sitting Heart Rate Pre-Dialysis 87 BPM Sitting H eart Rate Post-Dialysis 82 BPM Temperature Pre-Dialysis 97.6 degF Temperature Post -Dialysis 97.9 degF September 17, 2024 In-Center Hemodialysis Treatment 2662-79-15L84:12:18.000Z 2785-71-61C88:31:18.000Z BP Sitting (Pre-Dialysis) 108/65 mmHg BP Sitting (Post-Dialysis) 125/48 mmHg Concurrent Access: falseAV Fistula Upper Arm (Right) Arterial Sitting Heart Rate Pre-Dialysis 88 BPM Sitting H eart Rate Post-Dialysis 82 BPM Temperature Pre-Dialysis 97.7 degF Temperature Post -Dialysis 97.7 degF September 15, 2024 In-Center Hemodialysis Treatment 1568-04-84X60:13:45.000Z 6476-90-73Z26:44:45.000Z BP Sitting (Pre-Dialysis) 138/68 mmHg BP Sitting (Post-Dialysis) 127/58 mmHg Concurrent Access: falseAV Fistula Upper Arm (Right) Arterial BP Standing (Pre-Dialysis) 127/90 mmHg Sitti ng Heart Rate Post-Dialysis 77 BPM Sitting Heart Rate Pre-Dialysis 82 BPM Temperatu re Post-Dialysis 98.2 degF Standing Heart Rate Pre-Dialysis 83 BPM Temperature Pre-Dialysis 98 degF September 13, 2024 In-Center Hemodialysis Treatment 4091-62-61V74:16:43.000Z 8258-99-42C33:49:43.000Z BP Sitting (Pre-Dialysis) 181/60 mmHg BP Sitting (Post-Dialysis) 100/64 mmHg Concurrent Access: falseAV Fistula Upper Arm (Right) Arterial Sitting Heart Rate Pre-Dialysis 90 BPM Sitting H eart Rate Post-Dialysis 80 BPM Temperature Pre-Dialysis 98 degF Temperature Post -Dialysis 98.1 degF September 10, 2024 In-Center Hemodialysis Treatment 7639-39-64U19:19:09.000Z 8968-06-13W24:52:10.000Z BP Sitting (Pre-Dialysis) 143/69 mmHg BP Sitting (Post-Dialysis) 108/50 mmHg Concurrent Access: falseAV Fistula Upper Arm (Right) Arterial Sitting Heart Rate Pre-Dialysis 89 BPM Sitting H eart Rate Post-Dialysis 82 BPM Temperature Pre-Dialysis 98 degF Temperature Post -Dialysis 98 degF September 08, 2024 In-Center Hemodialysis Treatment 9144-56-62V17:14:29.000Z 5265-44-57P65:49:29.000Z BP Sitting (Pre-Dialysis) 134/135 mmHg BP Sitting (Post-Dialysis) 116/56 mmHg Concurrent Access: falseAV Fistula Upper Arm (Right) Arterial Sitting Heart Rate Pre-Dialysis 83 BPM Sitting H eart Rate Post-Dialysis 78 BPM Temperature Pre-Dialysis 97.9 degF Temperature Post -Dialysis 97.9 degF September 06, 2024 In-Center Hemodialysis Treatment 3301-25-20F87:51:55.000Z 1871-92-17A53:24:56.000Z BP Sitting (Pre-Dialysis) 126/62 mmHg BP Sitting (Post-Dialysis) 107/58 mmHg Concurrent Access: falseAV Fistula Upper Arm (Right) Arterial Sitting Heart Rate Pre-Dialysis 88 BPM Sitting H eart Rate Post-Dialysis 81 BPM Temperature Pre-Dialysis 98 degF Temperature Post -Dialysis 98 degF September 03, 2024 In-Center Hemodialysis Treatment 7730-72-72U11:17:06.000Z 2056-80-50O79:47:06.000Z BP Sitting (Pre-Dialysis) 133/59 mmHg BP Sitting (Post-Dialysis) 102/59 mmHg Concurrent Access: falseAV Fistula Upper Arm (Right) Arterial Sitting Heart Rate Pre-Dialysis 80 BPM Sitting H eart Rate Post-Dialysis 82 BPM Temperature Pre-Dialysis 98 degF Temperature Post -Dialysis 98 degF August 30, 2024 In-Center Hemodialysis Treatment 9798-19-03V12:09:00.000Z 8920-10-13J12:39:00.000Z BP Sitting (Pre-Dialysis) 151/72 mmHg BP Sitting (Post-Dialysis) 142/59 mmHg Concurrent Access: falseAV Fistula Upper Arm (Right) Arterial Sitting Heart Rate Pre-Dialysis 90 BPM Sitting H eart Rate Post-Dialysis 83 BPM Temperature Pre-Dialysis 97.6 degF Temperature Post -Dialysis 98.1 degF August 27, 2024 In-Center Hemodialysis Treatment 9573-25-46J15:14:00.000Z 8774-08-17R58:32:11.000Z BP Sitting (Pre-Dialysis) 119/50 mmHg BP Sitting (Post-Dialysis) 130/67 mmHg Concurrent Access: falseAV Fistula Upper Arm (Right) Arterial Sitting Heart Rate Pre-Dialysis 84 BPM Sitting H eart Rate Post-Dialysis 79 BPM Temperature Pre-Dialysis 98.1 degF Temperature Post -Dialysis 97.2 degF August 23, 2024 In-Center Hemodialysis Treatment 6143-80-43O05:15:05.000Z 6828-87-41A37:25:06.000Z BP Sitting (Pre-Dialysis) 132/61 mmHg BP Sitting (Post-Dialysis) 109/67 mmHg Concurrent Access: falseAV Fistula Upper Arm (Right) Arterial Sitting Heart Rate Pre-Dialysis 84 BPM Sitting H eart Rate Post-Dialysis 102 BPM Temperature Pre-Dialysis 98 degF Temperature Post -Dialysis 98 degF August 20, 2024 In-Center Hemodialysis Treatment 5966-88-74T42:17:28.000Z 5102-53-11G64:49:28.000Z BP Sitting (Pre-Dialysis) 149/74 mmHg BP Sitting (Post-Dialysis) 114/59 mmHg Concurrent Access: falseAV Fistula Upper Arm (Right) Arterial Sitting Heart Rate Pre-Dialysis 92 BPM Sitting H eart Rate Post-Dialysis 79 BPM Temperature Pre-Dialysis 98 degF Temperature Post -Dialysis 98 degF August 18, 2024 In-Center Hemodialysis Treatment 5429-30-29M28:19:55.000Z 1884-99-58T00:08:55.000Z BP Sitting (Pre-Dialysis) 139/68 mmHg BP Sitting (Post-Dialysis) 101/42 mmHg Concurrent Access: falseAV Fistula Upper Arm (Right) Arterial Sitting Heart Rate Pre-Dialysis 84 BPM Sitting H eart Rate Post-Dialysis 87 BPM Temperature Pre-Dialysis 98 degF Temperature Post -Dialysis 97.7 degF August 16, 2024 In-Center Hemodialysis Treatment 6254-96-26O78:15:00.000Z 5220-67-13E56:38:22.000Z BP Sitting (Pre-Dialysis) 125/72 mmHg BP Sitting (Post-Dialysis) 111/53 mmHg Concurrent Access: falseAV Fistula Upper Arm (Right) Arterial BP Standing (Pre-Dialysis) 165/98 mmHg BP Standing (P ost-Dialysis) 134/56 mmHg Sitting Heart Rate Pre-Dialysis 84 BPM Sitting Heart Rate Post-Dialysis 77 BPM Standing Heart Rate Pre-Dialysis 86 BPM Standing Heart Rate Post-Dialysis 80 BPM Temperature Pre-Dialysis 97.7 degF Temperature Post -Dialysis 98 degF August 13, 2024 In-Center Hemodialysis Treatment 8732-94-39J75:12:00.000Z 0931-28-60Y76:43:49.000Z BP Sitting (Pre-Dialysis) 148/69 mmHg BP Sitting (Post-Dialysis) 132/70 mmHg Concurrent Access: falseAV Fistula Upper Arm (Right) Arterial Sitting Heart Rate Pre-Dialysis 78 BPM Sitting H eart Rate Post-Dialysis 81 BPM Temperature Pre-Dialysis 97.6 degF August 11, 2024 In-Center Hemodialysis Treatment 1804-88-48S83:15:16.000Z 9237-14-10X01:48:16.000Z BP Sitting (Pre-Dialysis) 125/97 mmHg BP Sitting (Post-Dialysis) 110/71 mmHg Concurrent Access: falseAV Fistula Upper Arm (Right) Arterial Sitting Heart Rate Pre-Dialysis 85 BPM Sitting H eart Rate Post-Dialysis 81 BPM Temperature Pre-Dialysis 97.9 degF Temperature Post -Dialysis 98 degF August 09, 2024 In-Center Hemodialysis Treatment 7947-34-71B39:20:43.000Z 3156-21-01Z11:48:43.000Z BP Sitting (Pre-Dialysis) 142/72 mmHg BP Sitting (Post-Dialysis) 90/69 mmHg Concurrent Access: falseAV Fistula Upper Arm (Right) Arterial Sitting Heart Rate Pre-Dialysis 86 BPM Sitting H eart Rate Post-Dialysis 87 BPM Temperature Pre-Dialysis 98 degF Temperature Post -Dialysis 98.2 degF August 06, 2024 In-Center Hemodialysis Treatment 7305-92-88L61:19:53.000Z 2816-11-55I74:51:54.000Z BP Sitting (Pre-Dialysis) 184/102 mmHg BP Sitting (Post-Dialysis) 111/56 mmHg Concurrent Access: falseAV Fistula Upper Arm (Right) Arterial Sitting Heart Rate Pre-Dialysis 93 BPM Sitting H eart Rate Post-Dialysis 89 BPM Temperature Pre-Dialysis 98 degF Temperature Post -Dialysis 98 degF August 04, 2024 In-Center Hemodialysis Treatment 3031-73-58U45:17:20.000Z 0058-75-98P55:48:20.000Z BP Sitting (Pre-Dialysis) 176/90 mmHg BP Sitting (Post-Dialysis) 111/55 mmHg Concurrent Access: falseAV Fistula Upper Arm (Right) Arterial Sitting Heart Rate Pre-Dialysis 86 BPM Sitting H eart Rate Post-Dialysis 84 BPM Temperature Pre-Dialysis 97.5 degF Temperature Post -Dialysis 97.7 degF August 02, 2024 In-Center Hemodialysis Treatment 6505-96-77D76:22:47.000Z 4741-38-41G61:46:47.000Z BP Sitting (Pre-Dialysis) 171/94 mmHg BP Sitting (Post-Dialysis) 126/53 mmHg Concurrent Access: falseAV Fistula Upper Arm (Right) Arterial BP Standing (Pre-Dialysis) 191/86 mmHg Sitti ng Heart Rate Post-Dialysis 82 BPM Sitting Heart Rate Pre-Dialysis 89 BPM Temperatu re Post-Dialysis 98.1 degF Standing Heart Rate Pre-Dialysis 89 BPM Temperature Pre-Dialysis 97.9 degF July 30, 2024 In-Center Hemodialysis Treatment 4336-40-75R71:12:49.000Z 6128-76-73C29:39:50.000Z BP Sitting (Pre-Dialysis) 181/83 mmHg BP Sitting (Post-Dialysis) 116/87 mmHg Concurrent Access: falseAV Fistula Upper Arm (Right) Arterial Sitting Heart Rate Pre-Dialysis 93 BPM Sitting H eart Rate Post-Dialysis 83 BPM Temperature Pre-Dialysis 97.3 degF Temperature Post -Dialysis 97.8 degF July 26, 2024 In-Center Hemodialysis Treatment 1155-30-98T52:21:44.000Z 6443-98-41T74:50:43.000Z BP Sitting (Pre-Dialysis) 125/65 mmHg BP Sitting (Post-Dialysis) 96/58 mmHg Concurrent Access: falseAV Fistula Upper Arm (Right) Arterial BP Standing (Pre-Dialysis) 143/57 mmHg BP Standing (P ost-Dialysis) 134/59 mmHg Sitting Heart Rate Pre-Dialysis 88 BPM Sitting Heart Rate Post-Dialysis 94 BPM Standing Heart Rate Pre-Dialysis 99 BPM Standing Heart Rate Post-Dialysis 82 BPM Temperature Pre-Dialysis 98.4 degF Temperature Post -Dialysis 97.8 degF July 23, 2024 In-Center Hemodialysis Treatment 3158-11-36V50:12:00.000Z 8826-59-14Z77:44:36.000Z BP Sitting (Pre-Dialysis) 147/55 mmHg BP Sitting (Post-Dialysis) 111/85 mmHg Concurrent Access: falseAV Fistula Upper Arm (Right) Arterial BP Standing (Pre-Dialysis) 132/88 mmHg BP Standing (P ost-Dialysis) 107/81 mmHg Sitting Heart Rate Pre-Dialysis 81 BPM Sitting Heart Rate Post-Dialysis 87 BPM Standing Heart Rate Pre-Dialysis 87 BPM Standing Heart Rate Post-Dialysis 87 BPM Temperature Pre-Dialysis 97.7 degF July 21, 2024 In-Center Hemodialysis Treatment 4505-80-48O20:21:03.000Z 3064-54-84O98:55:03.000Z BP Sitting (Pre-Dialysis) 121/62 mmHg BP Sitting (Post-Dialysis) 141/52 mmHg Concurrent Access: falseAV Fistula Upper Arm (Right) Arterial BP Standing (Pre-Dialysis) 130/66 mmHg Sitting Heart Rate Post-Dialysis 78 BPM Sitting Heart Rate Pre-Dialysis 78 BPM Standing Heart Rate Pre-Dialysis 80 BPM Temperature Pre-Dialysis 97.6 degF July 19, 2024 In-Center Hemodialysis Treatment 6263-94-79V52:23:30.000Z 2774-04-92N87:04:30.000Z BP Sitting (Pre-Dialysis) 173/76 mmHg BP Sitting (Post-Dialysis) 102/48 mmHg Concurrent Access: falseAV Fistula Upper Arm (Right) Arterial Sitting Heart Rate Pre-Dialysis 96 BPM BP Standi ng (Post-Dialysis) 107/51 mmHg Temperature Pre-Dialysis 98 degF Sitting Heart Ra te Post-Dialysis 81 BPM Standing Heart Rate Post-Gladis lysis 81 BPM Temperature Post-Dialysis 98 degF July 16, 2024 In-Center Hemodialysis Treatment 7525-92-17U07:19:39.000Z 5530-40-17C25:55:39.000Z BP Sitting (Pre-Dialysis) 123/47 mmHg BP Sitting (Post-Dialysis) 135/108 mmHg Concurrent Access: falseAV Fistula Upper Arm (Right) Arterial Sitting Heart Rate Pre-Dialysis 89 BPM Sitting H eart Rate Post-Dialysis 83 BPM Temperature Pre-Dialysis 98 degF July 14, 2024 In-Center Hemodialysis Treatment 7906-65-49U57:12:27.000Z 4130-40-70J92:45:28.000Z BP Sitting (Pre-Dialysis) 140/62 mmHg BP Sitting (Post-Dialysis) 124/56 mmHg Concurrent Access: falseAV Fistula Upper Arm (Right) Arterial Sitting Heart Rate Pre-Dialysis 84 BPM Sitting H eart Rate Post-Dialysis 81 BPM Temperature Pre-Dialysis 96.8 degF Temperature Post -Dialysis 97.7 degF July 12, 2024 In-Center Hemodialysis Treatment [id number]:17:54.000Z 8801-66-47R60:50:55.000Z BP Sitting (Pre-Dialysis) 127/56 mmHg BP Sitting (Post-Dialysis) 105/44 mmHg Concurrent Access: falseAV Fistula Upper Arm (Right) Arterial BP Standing (Pre-Dialysis) 152/69 mmHg BP Standing (P ost-Dialysis) 105/45 mmHg Sitting Heart Rate Pre-Dialysis 79 BPM Sitting Heart Rate Post-Dialysis 78 BPM Standing Heart Rate Pre-Dialysis 85 BPM Standing Heart Rate Post-Dialysis 78 BPM Temperature Pre-Dialysis 97.4 degF Temperature Post -Dialysis 97.8 degF July 09, 2024 In-Center Hemodialysis Treatment [id number]:14:04.000Z 5358-45-81Q41:46:05.000Z BP Sitting (Pre-Dialysis) 140/63 mmHg BP Sitting (Post-Dialysis) 110/54 mmHg Concurrent Access: falseAV Fistula Upper Arm (Right) Arterial BP Standing (Pre-Dialysis) 119/56 mmHg BP Standing (P ost-Dialysis) 132/64 mmHg Sitting Heart Rate Pre-Dialysis 86 BPM Sitting Heart Rate Post-Dialysis 82 BPM Standing Heart Rate Pre-Dialysis 87 BPM Standing Heart Rate Post-Dialysis 76 BPM Temperature Pre-Dialysis 97.8 degF Temperature Post -Dialysis 97.7 degF July 07, 2024 In-Center Hemodialysis Treatment [id number]:15:31.000Z 9954-35-02Y43:44:32.000Z BP Sitting (Pre-Dialysis) 140/59 mmHg BP Sitting (Post-Dialysis) 122/56 mmHg Concurrent Access: falseAV Fistula Upper Arm (Right) Arterial Sitting Heart Rate Pre-Dialysis 87 BPM Sitting H eart Rate Post-Dialysis 83 BPM Temperature Pre-Dialysis 97.4 degF Temperature Post -Dialysis 97.8 degF July 05, 2024 In-Center Hemodialysis Treatment 1515-53-31H21:13:58.000Z 5373-70-76F63:42:59.000Z BP Sitting (Pre-Dialysis) 134/72 mmHg BP Sitting (Post-Dialysis) 103/59 mmHg Concurrent Access: falseAV Fistula Upper Arm (Right) Arterial Sitting Heart Rate Pre-Dialysis 86 BPM Sitting H eart Rate Post-Dialysis 80 BPM Temperature Pre-Dialysis 97.3 degF Temperature Post -Dialysis 97.7 degF July 02, 2024 In-Center Hemodialysis Treatment 2626-04-40G23:18:09.000Z 1834-93-28H24:37:09.000Z BP Sitting (Pre-Dialysis) 118/48 mmHg BP Sitting (Post-Dialysis) 127/65 mmHg Concurrent Access: falseAV Fistula Upper Arm (Right) Arterial BP Standing (Pre-Dialysis) 143/78 mmHg BP Standing (P ost-Dialysis) 124/55 mmHg Sitting Heart Rate Pre-Dialysis 91 BPM Sitting Heart Rate Post-Dialysis 86 BPM Standing Heart Rate Pre-Dialysis 93 BPM Standing Heart Rate Post-Dialysis 84 BPM Temperature Pre-Dialysis 97.2 degF Temperature Post -Dialysis 97.2 degF June 30, 2024 In-Center Hemodialysis Treatment 9076-03-69G91:17:00.000Z 5833-45-76H93:47:36.000Z BP Sitting (Pre-Dialysis) 117/56 mmHg BP Sitting (Post-Dialysis) 108/60 mmHg Concurrent Access: falseAV Fistula Upper Arm (Right) Arterial Sitting Heart Rate Pre-Dialysis 85 BPM BP Standing (Post-Dialysis) 118/60 mmHg Temperature Pre-Dialysis 98.1 degF Sitting Heart Ra te Post-Dialysis 86 BPM Standing Heart Rate Post-Gladis lysis 88 BPM Temperature Post-Dialysis 97 .8 degF June 28, 2024 In-Center Hemodialysis Treatment 4775-92-20K21:13:03.000Z 7114-07-93D03:44:03.000Z BP Sitting (Pre-Dialysis) 142/69 mmHg BP Sitting (Post-Dialysis) 126/62 mmHg Concurrent Access: falseAV Fistula Upper Arm (Right) Arterial Sitting Heart Rate Pre-Dialysis 98 BPM Sitting H eart Rate Post-Dialysis 87 BPM Temperature Pre-Dialysis 97.5 degF Temperature Post -Dialysis 97.8 degF June 25, 2024 In-Center Hemodialysis Treatment [id number]:13:12.000Z 3055-72-61E38:46:13.000Z BP Sitting (Pre-Dialysis) 160/73 mmHg BP Sitting (Post-Dialysis) 109/58 mmHg Concurrent Access: falseAV Fistula Upper Arm (Right) Arterial Sitting Heart Rate Pre-Dialysis 94 BPM Sitting H eart Rate Post-Dialysis 79 BPM Temperature Pre-Dialysis 97.6 degF June 23, 2024 In-Center Hemodialysis Treatment 4367-16-41S65:19:38.000Z 5080-42-54G49:47:38.000Z BP Sitting (Pre-Dialysis) 147/62 mmHg BP Sitting (Post-Dialysis) 148/59 mmHg Concurrent Access: falseAV Fistula Upper Arm (Right) Arterial Sitting Heart Rate Pre-Dialysis 88 BPM BP Standing (Post-Dialysis) 115/69 mmHg Temperature Pre-Dialysis 98.1 degF Sitting Heart Ra te Post-Dialysis 76 BPM Standing Heart Rate Post-Gladis lysis 84 BPM Temperature Post-Dialysis 98 .1 degF June 21, 2024 In-Center Hemodialysis Treatment 4919-80-94N89:13:06.000Z 4621-46-97L18:43:05.000Z BP Sitting (Pre-Dialysis) 138/78 mmHg BP Sitting (Post-Dialysis) 118/58 mmHg Concurrent Access: falseAV Fistula Upper Arm (Right) Arterial Sitting Heart Rate Pre-Dialysis 101 BPM Sitting H eart Rate Post-Dialysis 78 BPM Temperature Pre-Dialysis 97.1 degF Temperature Post -Dialysis 97.9 degF June 19, 2024 In-Center Hemodialysis Treatment 3292-08-39F25:17:00.000Z 5649-49-24Y38:51:52.000Z BP Sitting (Pre-Dialysis) 176/86 mmHg BP Sitting (Post-Dialysis) 97/50 mmHg Concurrent Access: falseAV Fistula Upper Arm (Right) Arterial Sitting Heart Rate Pre-Dialysis 109 BPM Sitting H eart Rate Post-Dialysis 85 BPM Temperature Pre-Dialysis 97.2 degF Temperature Post -Dialysis 97.7 degF June 16, 2024 In-Center Hemodialysis Treatment 7136-77-08N14:13:55.000Z 6603-34-49C96:46:55.000Z BP Sitting (Pre-Dialysis) 132/87 mmHg BP Sitting (Post-Dialysis) 146/67 mmHg Concurrent Access: falseAV Fistula Upper Arm (Right) Arterial Sitting Heart Rate Pre-Dialysis 85 BPM BP Standing (Post-Dialysis) 122/48 mmHg Temperature Pre-Dialysis 97.8 degF Sitting Heart Ra te Post-Dialysis 79 BPM Standing Heart Rate Post-Gladis lysis 71 BPM Temperature Post-Dialysis 97 .8 degF June 11, 2024 In-Center Hemodialysis Treatment 8016-60-53E18:10:47.000Z 5733-85-10Q55:46:48.000Z BP Sitting (Pre-Dialysis) 115/67 mmHg BP Sitting (Post-Dialysis) 98/56 mmHg Concurrent Access: falseAV Fistula Upper Arm (Right) Arterial Sitting Heart Rate Pre-Dialysis 83 BPM Sitting H eart Rate Post-Dialysis 76 BPM Temperature Pre-Dialysis 97.1 degF Temperature Post -Dialysis 97.9 degF June 08, 2024 In-Center Hemodialysis Treatment 1555-22-00V61:17:59.000Z 0709-99-34X33:46:58.000Z BP Sitting (Pre-Dialysis) 167/73 mmHg BP Sitting (Post-Dialysis) 125/48 mmHg Concurrent Access: falseAV Fistula Upper Arm (Right) Arterial BP Standing (Pre-Dialysis) 171/67 mmHg BP Standing (P ost-Dialysis) 111/56 mmHg Sitting Heart Rate Pre-Dialysis 84 BPM Sitting Heart Rate Post-Dialysis 88 BPM Standing Heart Rate Pre-Dialysis 84 BPM Standing Heart Rate Post-Dialysis 88 BPM Temperature Pre-Dialysis 97.8 degF Temperature Post -Dialysis 98.4 degF June 04, 2024 In-Center Hemodialysis Treatment 8111-56-09N36:14:52.000Z 7358-91-01W78:44:52.000Z BP Sitting (Pre-Dialysis) 165/79 mmHg BP Sitting (Post-Dialysis) 122/47 mmHg Concurrent Access: falseAV Fistula Upper Arm (Right) Arterial Sitting Heart Rate Pre-Dialysis 92 BPM BP Standi ng (Post-Dialysis) 123/95 mmHg Temperature Pre-Dialysis 98 degF Sitting Heart Ra te Post-Dialysis 77 BPM Standing Heart Rate Post-Gladis lysis 82 BPM Temperature Post-Dialysis 97 .3 degF June 01, 2024 In-Center Hemodialysis Treatment 9499-04-51Y77:18:00.000Z 5935-38-36Y19:47:03.000Z BP Sitting (Pre-Dialysis) 105/59 mmHg BP Sitting (Post-Dialysis) 117/43 mmHg Concurrent Access: falseAV Fistula Upper Arm (Right) Arterial BP Standing (Pre-Dialysis) 153/66 mmHg BP Standing (P ost-Dialysis) 115/48 mmHg Sitting Heart Rate Pre-Dialysis 85 BPM Sitting Heart Rate Post-Dialysis 78 BPM Standing Heart Rate Pre-Dialysis 89 BPM Standing Heart Rate Post-Dialysis 86 BPM Temperature Pre-Dialysis 97.3 degF Temperature Post -Dialysis 97.2 degF May 28, 2024 In-Center Hemodialysis Treatment 1543-31-24X74:17:56.000Z 9327-22-53H73:47:57.000Z BP Sitting (Pre-Dialysis) 176/74 mmHg BP Sitting (Post-Dialysis) 139/59 mmHg Concurrent Access: falseAV Fistula Upper Arm (Right) Arterial Sitting Heart Rate Pre-Dialysis 96 BPM Sitting H eart Rate Post-Dialysis 83 BPM Temperature Pre-Dialysis 97.1 degF Temperature Post -Dialysis 97.7 degF May 26, 2024 In-Center Hemodialysis Treatment 1901-72-39C80:15:00.000Z 9505-03-57L93:45:24.000Z BP Sitting (Pre-Dialysis) 158/58 mmHg BP Sitting (Post-Dialysis) 123/53 mmHg Concurrent Access: falseAV Fistula Upper Arm (Right) Arterial BP Standing (Pre-Dialysis) 172/65 mmHg BP Standing (P ost-Dialysis) 114/49 mmHg Sitting Heart Rate Pre-Dialysis 84 BPM Sitting Heart Rate Post-Dialysis 84 BPM Standing Heart Rate Pre-Dialysis 88 BPM Standing Heart Rate Post-Dialysis 83 BPM Temperature Pre-Dialysis 98 degF Temperature Post -Dialysis 97.3 degF May 24, 2024 In-Center Hemodialysis Treatment 3090-98-16K08:19:40.000Z 8763-32-49T84:52:41.000Z BP Sitting (Pre-Dialysis) 142/53 mmHg BP Sitting (Post-Dialysis) 126/53 mmHg Concurrent Access: falseAV Fistula Upper Arm (Right) Arterial Sitting Heart Rate Pre-Dialysis 81 BPM Sitting H eart Rate Post-Dialysis 80 BPM Temperature Pre-Dialysis 97.8 degF Temperature Post -Dialysis 97.8 degF May 21, 2024 In-Center Hemodialysis Treatment 2175-10-34Z33:17:51.000Z 8255-10-18I67:48:51.000Z BP Sitting (Pre-Dialysis) 123/50 mmHg BP Sitting (Post-Dialysis) 105/90 mmHg Concurrent Access: falseAV Fistula Upper Arm (Right) Arterial Sitting Heart Rate Pre-Dialysis 81 BPM BP Standing (Post-Dialysis) 121/53 mmHg Temperature Pre-Dialysis 97.8 degF Sitting Heart Ra te Post-Dialysis 83 BPM Standing Heart Rate Post-Gladis lysis 84 BPM Temperature Post-Dialysis 97 .8 degF May 19, 2024 In-Center Hemodialysis Treatment 7264-46-40C96:40:19.000Z 9449-80-08C43:42:18.000Z BP Sitting (Pre-Dialysis) 145/74 mmHg BP Sitting (Post-Dialysis) 133/61 mmHg Concurrent Access: falseAV Fistula Upper Arm (Right) Arterial Sitting Heart Rate Pre-Dialysis 84 BPM Sitting H eart Rate Post-Dialysis 82 BPM Temperature Pre-Dialysis 97.6 degF Temperature Post -Dialysis 97.6 degF May 17, 2024 In-Center Hemodialysis Treatment 6057-14-22S73:14:11.000Z 7974-34-38D15:45:11.000Z BP Sitting (Pre-Dialysis) 116/67 mmHg BP Sitting (Post-Dialysis) 130/65 mmHg Concurrent Access: falseAV Fistula Upper Arm (Right) Arterial Sitting Heart Rate Pre-Dialysis 84 BPM Sitting H eart Rate Post-Dialysis 80 BPM Temperature Pre-Dialysis 97.6 degF Temperature Post -Dialysis 97.6 degF May 14, 2024 In-Center Hemodialysis Treatment 5437-74-43G74:19:07.000Z 4323-78-27B09:49:07.000Z BP Sitting (Pre-Dialysis) 133/59 mmHg BP Sitting (Post-Dialysis) 124/55 mmHg Concurrent Access: falseAV Fistula Upper Arm (Right) Arterial Sitting Heart Rate Pre-Dialysis 89 BPM Sitting H eart Rate Post-Dialysis 82 BPM Temperature Pre-Dialysis 97.6 degF Temperature Post -Dialysis 97.6 degF May 12, 2024 In-Center Hemodialysis Treatment 1685-10-30B25:12:02.000Z 4629-32-80T97:45:03.000Z BP Sitting (Pre-Dialysis) 114/68 mmHg BP Sitting (Post-Dialysis) 106/57 mmHg Concurrent Access: falseAV Fistula Upper Arm (Right) Arterial Sitting Heart Rate Pre-Dialysis 92 BPM Sitting H eart Rate Post-Dialysis 86 BPM Temperature Pre-Dialysis 97.8 degF Temperature Post -Dialysis 97.8 degF May 10, 2024 In-Center Hemodialysis Treatment 5558-17-64M79:17:55.000Z 2267-60-52N60:48:55.000Z BP Sitting (Pre-Dialysis) 126/57 mmHg BP Sitting (Post-Dialysis) 102/52 mmHg Concurrent Access: falseAV Fistula Upper Arm (Right) Arterial BP Standing (Pre-Dialysis) 123/47 mmHg Sitti ng Heart Rate Post-Dialysis 82 BPM Sitting Heart Rate Pre-Dialysis 81 BPM Temperatu re Post-Dialysis 97.3 degF Standing Heart Rate Pre-Dialysis 82 BPM Temperature Pre-Dialysis 97 degF May 07, 2024 In-Center Hemodialysis Treatment 9935-51-39Y89:15:45.000Z 2807-74-42Q71:44:45.000Z BP Sitting (Pre-Dialysis) 150/73 mmHg BP Sitting (Post-Dialysis) 99/57 mmHg Concurrent Access: falseAV Fistula Upper Arm (Right) Arterial Sitting Heart Rate Pre-Dialysis 91 BPM BP Standing (Post-Dialysis) 118/56 mmHg Temperature Pre-Dialysis 97.4 degF Sitting Heart Ra te Post-Dialysis 83 BPM Standing Heart Rate Post-Gladis lysis 87 BPM Temperature Post-Dialysis 97 .8 degF May 04, 2024 In-Center Hemodialysis Treatment 8060-76-05Q74:14:00.000Z 4155-98-46A12:46:36.000Z BP Sitting (Pre-Dialysis) 123/68 mmHg BP Sitting (Post-Dialysis) 103/46 mmHg Concurrent Access: falseAV Fistula Upper Arm (Right) Arterial Sitting Heart Rate Pre-Dialysis 81 BPM Sitting H eart Rate Post-Dialysis 92 BPM Temperature Pre-Dialysis 97 degF Temperature Post -Dialysis 97.3 degF April 30, 2024 In-Center Hemodialysis Treatment 1112-97-35Q79:14:25.000Z 0446-10-43S22:46:24.000Z BP Sitting (Pre-Dialysis) 136/74 mmHg BP Sitting (Post-Dialysis) 113/50 mmHg Concurrent Access: falseAV Fistula Upper Arm (Right) Arterial Sitting Heart Rate Pre-Dialysis 85 BPM Sitting H eart Rate Post-Dialysis 87 BPM Temperature Pre-Dialysis 97.5 degF Temperature Post -Dialysis 97.6 degF April 28, 2024 In-Center Hemodialysis Treatment 6810-85-81I41:14:00.000Z 0397-84-82V95:49:18.000Z BP Sitting (Pre-Dialysis) 146/54 mmHg BP Sitting (Post-Dialysis) 102/46 mmHg Concurrent Access: falseAV Fistula Upper Arm (Right) Arterial BP Standing (Pre-Dialysis) 115/64 mmHg BP Standing (P ost-Dialysis) 122/51 mmHg Sitting Heart Rate Pre-Dialysis 85 BPM Sitting Heart Rate Post-Dialysis 79 BPM Standing Heart Rate Pre-Dialysis 90 BPM Standing Heart Rate Post-Dialysis 82 BPM Temperature Pre-Dialysis 97 degF Temperature Post -Dialysis 97.4 degF April 26, 2024 In-Center Hemodialysis Treatment 9339-80-56P71:13:23.000Z 5661-20-57P49:48:12.000Z BP Sitting (Pre-Dialysis) 133/54 mmHg BP Sitting (Post-Dialysis) 109/87 mmHg Concurrent Access: falseAV Fistula Upper Arm (Right) Arterial Sitting Heart Rate Pre-Dialysis 91 BPM Sitting H eart Rate Post-Dialysis 90 BPM Temperature Pre-Dialysis 97.3 degF Temperature Post -Dialysis 97.5 degF April 23, 2024 In-Center Hemodialysis Treatment 0238-86-20M04:14:00.000Z 1020-65-94Y49:47:14.000Z BP Sitting (Pre-Dialysis) 116/63 mmHg BP Sitting (Post-Dialysis) 114/45 mmHg Concurrent Access: falseAV Fistula Upper Arm (Right) Arterial BP Standing (Pre-Dialysis) 122/55 mmHg BP Standing (P ost-Dialysis) 107/48 mmHg Sitting Heart Rate Pre-Dialysis 88 BPM Sitting Heart Rate Post-Dialysis 93 BPM Standing Heart Rate Pre-Dialysis 89 BPM Standing Heart Rate Post-Dialysis 98 BPM Temperature Pre-Dialysis 97.5 degF Temperature Post -Dialysis 97.3 degF April 21, 2024 In-Center Hemodialysis Treatment 2034-38-22A31:16:36.000Z 6406-26-14X28:46:36.000Z BP Sitting (Pre-Dialysis) 126/61 mmHg BP Sitting (Post-Dialysis) 117/58 mmHg Concurrent Access: falseAV Fistula Upper Arm (Right) Arterial Sitting Heart Rate Pre-Dialysis 89 BPM Sitting H eart Rate Post-Dialysis 86 BPM Temperature Pre-Dialysis 97.6 degF Temperature Post -Dialysis 98 degF April 19, 2024 In-Center Hemodialysis Treatment 3900-22-58B12:13:36.000Z 7367-92-62S88:44:36.000Z BP Sitting (Pre-Dialysis) 128/91 mmHg BP Sitting (Post-Dialysis) 108/45 mmHg Concurrent Access: falseAV Fistula Upper Arm (Right) Arterial Sitting Heart Rate Pre-Dialysis 93 BPM Sitting H eart Rate Post-Dialysis 85 BPM Temperature Pre-Dialysis 97.9 degF Temperature Post -Dialysis 97.9 degF April 16, 2024 In-Center Hemodialysis Treatment 8519-60-15H20:14:00.000Z 4855-05-81C87:46:14.000Z BP Sitting (Pre-Dialysis) 152/50 mmHg BP Sitting (Post-Dialysis) 102/54 mmHg Concurrent Access: falseAV Fistula Upper Arm (Right) Arterial BP Standing (Pre-Dialysis) 118/65 mmHg Sitting Heart Rate Post-Dialysis 98 BPM Sitting Heart Rate Pre-Dialysis 85 BPM Temperatu re Post-Dialysis 97 degF Standing Heart Rate Pre-Dialysis 84 BPM Temperature Pre-Dialysis 97 degF April 14, 2024 In-Center Hemodialysis Treatment 6647-31-25A49:12:00.000Z 5995-11-33C67:44:36.000Z BP Sitting (Pre-Dialysis) 117/60 mmHg BP Sitting (Post-Dialysis) 101/51 mmHg Concurrent Access: falseAV Fistula Upper Arm (Right) Arterial BP Standing (Pre-Dialysis) 126/56 mmHg BP Standing (P ost-Dialysis) 99/59 mmHg Sitting Heart Rate Pre-Dialysis 81 BPM Sitting Heart Rate Post-Dialysis 81 BPM Standing Heart Rate Pre-Dialysis 89 BPM Standing Heart Rate Post-Dialysis 91 BPM Temperature Pre-Dialysis 97 degF Temperature Post -Dialysis 97.2 degF April 12, 2024 In-Center Hemodialysis Treatment 0942-28-32P95:21:14.000Z 3811-44-96B63:45:14.000Z BP Sitting (Pre-Dialysis) 121/50 mmHg BP Sitting (Post-Dialysis) 113/50 mmHg Concurrent Access: falseAV Fistula Upper Arm (Right) Arterial Sitting Heart Rate Pre-Dialysis 69 BPM BP Standing (Post-Dialysis) 100/47 mmHg Temperature Pre-Dialysis 97.6 degF Sitting Heart Ra te Post-Dialysis 80 BPM Standing Heart Rate Post-Gladis lysis 90 BPM Temperature Post-Dialysis 98 .2 degF April 09, 2024 In-Center Hemodialysis Treatment 2774-94-26N62:20:44.000Z 0065-05-26B73:48:44.000Z BP Sitting (Pre-Dialysis) 169/76 mmHg BP Sitting (Post-Dialysis) 114/57 mmHg Concurrent Access: falseAV Fistula Upper Arm (Right) Arterial Sitting Heart Rate Pre-Dialysis 83 BPM Sitting H eart Rate Post-Dialysis 85 BPM Temperature Pre-Dialysis 97.6 degF Temperature Post -Dialysis 97.6 degF April 07, 2024 In-Center Hemodialysis Treatment 3470-86-21Z83:15:40.000Z 5071-67-91Q09:45:39.000Z BP Sitting (Pre-Dialysis) 130/59 mmHg BP Sitting (Post-Dialysis) 97/45 mmHg Concurrent Access: falseAV Fistula Upper Arm (Right) Arterial Sitting Heart Rate Pre-Dialysis 90 BPM Sitting H eart Rate Post-Dialysis 83 BPM Temperature Pre-Dialysis 98.4 degF Temperature Post -Dialysis 97.5 degF April 05, 2024 In-Center Hemodialysis Treatment 9941-58-33I23:14:00.000Z 3254-87-17Y18:46:44.000Z BP Sitting (Pre-Dialysis) 126/52 mmHg BP Sitting (Post-Dialysis) 119/53 mmHg Concurrent Access: falseAV Fistula Upper Arm (Right) Arterial BP Standing (Pre-Dialysis) 118/54 mmHg BP Standing (P ost-Dialysis) 111/54 mmHg Sitting Heart Rate Pre-Dialysis 86 BPM Sitting Heart Rate Post-Dialysis 78 BPM Standing Heart Rate Pre-Dialysis 89 BPM Standing Heart Rate Post-Dialysis 79 BPM Temperature Pre-Dialysis 97 degF Temperature Post -Dialysis 97.3 degF April 02, 2024 In-Center Hemodialysis Treatment 6253-23-27O71:17:44.000Z 9178-56-14E77:17:44.000Z BP Sitting (Pre-Dialysis) 126/71 mmHg BP Sitting (Post-Dialysis) 132/45 mmHg Concurrent Access: falseAV Fistula Upper Arm (Right) Arterial Sitting Heart Rate Pre-Dialysis 107 BPM BP Standing (Post-Dialysis) 107/85 mmHg Temperature Pre-Dialysis 97.8 degF Sitting Heart Ra te Post-Dialysis 80 BPM Standing Heart Rate Post-Gladis lysis 88 BPM Temperature Post-Dialysis 97 .8 degF March 31, 2024 In-Center Hemodialysis Treatment 2930-78-54F97:12:44.000Z 5937-27-72Q48:40:44.000Z BP Sitting (Pre-Dialysis) 143/68 mmHg BP Sitting (Post-Dialysis) 115/87 mmHg Concurrent Access: falseAV Fistula Upper Arm (Right) Arterial Sitting Heart Rate Pre-Dialysis 99 BPM Sitting H eart Rate Post-Dialysis 87 BPM Temperature Pre-Dialysis 97.6 degF Temperature Post -Dialysis 97.5 degF March 29, 2024 In-Center Hemodialysis Treatment 1062-40-86Y78:19:45.000Z 4172-00-29V00:49:44.000Z BP Sitting (Pre-Dialysis) 156/63 mmHg BP Sitting (Post-Dialysis) 110/51 mmHg Concurrent Access: falseAV Fistula Upper Arm (Right) Arterial Sitting Heart Rate Pre-Dialysis 87 BPM Sitting H eart Rate Post-Dialysis 78 BPM Temperature Pre-Dialysis 97.6 degF Temperature Post -Dialysis 97.5 degF March 26, 2024 In-Center Hemodialysis Treatment 6956-79-09T35:18:14.000Z 3271-78-42J43:47:14.000Z BP Sitting (Pre-Dialysis) 112/50 mmHg BP Sitting (Post-Dialysis) 119/51 mmHg Concurrent Access: falseAV Fistula Upper Arm (Right) Arterial Sitting Heart Rate Pre-Dialysis 85 BPM Sitting H eart Rate Post-Dialysis 79 BPM Temperature Pre-Dialysis 97.5 degF Temperature Post -Dialysis 97.6 degF March 24, 2024 In-Center Hemodialysis Treatment 9298-44-54L76:14:14.000Z 3801-31-69G02:44:14.000Z BP Sitting (Pre-Dialysis) 99/50 mmHg BP Sitting (Post-Dialysis) 115/56 mmHg Concurrent Access: falseAV Fistula Upper Arm (Right) Arterial Sitting Heart Rate Pre-Dialysis 91 BPM Sitting H eart Rate Post-Dialysis 79 BPM Temperature Pre-Dialysis 97.5 degF Temperature Post -Dialysis 97.6 degF March 22, 2024 In-Center Hemodialysis Treatment 4883-68-91M51:17:00.000Z 2803-36-46E93:49:14.000Z BP Sitting (Pre-Dialysis) 117/47 mmHg BP Sitting (Post-Dialysis) 112/27 mmHg Concurrent Access: falseAV Fistula Upper Arm (Right) Arterial BP Standing (Pre-Dialysis) 157/69 mmHg BP Standing (P ost-Dialysis) 119/97 mmHg Sitting Heart Rate Pre-Dialysis 90 BPM Sitting Heart Rate Post-Dialysis 79 BPM Standing Heart Rate Pre-Dialysis 88 BPM Standing Heart Rate Post-Dialysis 91 BPM Temperature Pre-Dialysis 97.4 degF Temperature Post -Dialysis 97.3 degF March 19, 2024 In-Center Hemodialysis Treatment 8242-87-14B46:13:02.000Z 0261-49-50H53:40:02.000Z BP Sitting (Pre-Dialysis) 98/90 mmHg BP Sitting (Post-Dialysis) 112/42 mmHg Concurrent Access: falseAV Fistula Upper Arm (Right) Arterial Sitting Heart Rate Pre-Dialysis 87 BPM BP Standing (Post-Dialysis) 109/81 mmHg Temperature Pre-Dialysis 97.8 degF Sitting Heart Ra te Post-Dialysis 90 BPM Standing Heart Rate Post-Gladis lysis 83 BPM Temperature Post-Dialysis 97 .8 degF March 17, 2024 In-Center Hemodialysis Treatment 8821-35-91V77:15:00.000Z 4037-02-95B80:46:02.000Z BP Sitting (Pre-Dialysis) 114/52 mmHg BP Sitting (Post-Dialysis) 129/110 mmHg Concurrent Access: falseAV Fistula Upper Arm (Right) Arterial BP Standing (Pre-Dialysis) 120/84 mmHg BP Standing (P ost-Dialysis) 106/61 mmHg Sitting Heart Rate Pre-Dialysis 88 BPM Sitting Heart Rate Post-Dialysis 56 BPM Standing Heart Rate Pre-Dialysis 89 BPM Standing Heart Rate Post-Dialysis 87 BPM Temperature Pre-Dialysis 97.7 degF Temperature Post -Dialysis 98.1 degF March 15, 2024 In-Center Hemodialysis Treatment 7267-00-16B45:16:02.000Z 9603-08-55P68:47:02.000Z BP Sitting (Pre-Dialysis) 173/54 mmHg BP Sitting (Post-Dialysis) 127/57 mmHg Concurrent Access: falseAV Fistula Upper Arm (Right) Arterial Sitting Heart Rate Pre-Dialysis 91 BPM BP Standing (Post-Dialysis) 115/60 mmHg Temperature Pre-Dialysis 97.8 degF Sitting Heart Ra te Post-Dialysis 93 BPM Standing Heart Rate Post-Gladis lysis 99 BPM Temperature Post-Dialysis 97 .8 degF March 12, 2024 In-Center Hemodialysis Treatment 9321-18-15L16:13:58.000Z 5085-56-57T94:43:58.000Z BP Sitting (Pre-Dialysis) 155/59 mmHg BP Sitting (Post-Dialysis) 106/54 mmHg Concurrent Access: falseAV Fistula Upper Arm (Right) Arterial BP Standing (Pre-Dialysis) 131/61 mmHg BP Standing (P ost-Dialysis) 114/48 mmHg Sitting Heart Rate Pre-Dialysis 94 BPM Sitting Heart Rate Post-Dialysis 86 BPM Standing Heart Rate Pre-Dialysis 71 BPM Standing Heart Rate Post-Dialysis 79 BPM Temperature Pre-Dialysis 97.8 degF Temperature Post -Dialysis 97.5 degF March 10, 2024 In-Center Hemodialysis Treatment [id number]:24:58.000Z 6375-23-02A12:54:58.000Z BP Sitting (Pre-Dialysis) 160/123 mmHg BP Sitting (Post-Dialysis) 107/46 mmHg Concurrent Access: falseAV Fistula Upper Arm (Right) Arterial Sitting Heart Rate Pre-Dialysis 56 BPM Sitting H eart Rate Post-Dialysis 76 BPM Temperature Pre-Dialysis 97.9 degF Temperature Post -Dialysis 97.8 degF March 08, 2024 In-Center Hemodialysis Treatment 3296-02-66H17:18:00.000Z 8376-42-94L03:53:58.000Z BP Sitting (Pre-Dialysis) 101/52 mmHg BP Sitting (Post-Dialysis) 110/57 mmHg Concurrent Access: falseAV Fistula Upper Arm (Right) Arterial BP Standing (Pre-Dialysis) 119/55 mmHg BP Standing (P ost-Dialysis) 98/52 mmHg Sitting Heart Rate Pre-Dialysis 70 BPM Sitting Heart Rate Post-Dialysis 88 BPM Standing Heart Rate Pre-Dialysis 79 BPM Standing Heart Rate Post-Dialysis 83 BPM Temperature Pre-Dialysis 97.3 degF Temperature Post -Dialysis 97.2 degF March 05, 2024 In-Center Hemodialysis Treatment [id number]:17:05.000Z 7565-42-47D08:45:05.000Z BP Sitting (Pre-Dialysis) 98/68 mmHg BP Sitting (Post-Dialysis) 115/52 mmHg Concurrent Access: falseAV Fistula Upper Arm (Right) Arterial Sitting Heart Rate Pre-Dialysis 84 BPM BP Standing (Post-Dialysis) 111/50 mmHg Temperature Pre-Dialysis 97.6 degF Sitting Heart Ra te Post-Dialysis 79 BPM Standing Heart Rate Post-Gladis lysis 82 BPM Temperature Post-Dialysis 97 .5 degF March 03, 2024 In-Center Hemodialysis Treatment 5495-70-74B74:17:11.000Z 6303-75-22K84:46:11.000Z BP Sitting (Pre-Dialysis) 149/70 mmHg BP Sitting (Post-Dialysis) 112/49 mmHg Concurrent Access: falseAV Fistula Upper Arm (Right) Arterial Sitting Heart Rate Pre-Dialysis 83 BPM Sitting H eart Rate Post-Dialysis 75 BPM Temperature Pre-Dialysis 97.6 degF Temperature Post -Dialysis 97.5 degF March 01, 2024 In-Center Hemodialysis Treatment 5036-73-85L06:16:00.000Z 3383-33-16L47:49:05.000Z BP Sitting (Pre-Dialysis) 103/73 mmHg BP Sitting (Post-Dialysis) 95/47 mmHg Concurrent Access: falseAV Fistula Upper Arm (Right) Arterial Sitting Heart Rate Pre-Dialysis 83 BPM Sitting H eart Rate Post-Dialysis 74 BPM Temperature Pre-Dialysis 97.9 degF Temperature Post -Dialysis 97.8 degF February 27, 2024 In-Center Hemodialysis Treatment [id number]:17:07.000Z [id number]:48:07.000Z BP Sitting (Pre-Dialysis) 158/52 mmHg BP Sitting (Post-Dialysis) 109/47 mmHg Concurrent Access: falseAV Fistula Upper Arm (Right) Arterial Sitting Heart Rate Pre-Dialysis 88 BPM Sitting H eart Rate Post-Dialysis 85 BPM Temperature Pre-Dialysis 97.8 degF Temperature Post -Dialysis 97.4 degF February 25, 2024 In-Center Hemodialysis Treatment 6440-15-03A58:22:06.000Z 5050-66-97V39:53:07.000Z BP Sitting (Pre-Dialysis) 154/63 mmHg BP Sitting (Post-Dialysis) 197/78 mmHg Concurrent Access: falseAV Fistula Upper Arm (Right) Arterial Sitting Heart Rate Pre-Dialysis 89 BPM Sitting H eart Rate Post-Dialysis 42 BPM Temperature Pre-Dialysis 97.8 degF Temperature Post -Dialysis 98.2 degF February 23, 2024 In-Center Hemodialysis Treatment 8180-12-40Q41:16:05.000Z 4314-87-99R43:49:06.000Z BP Sitting (Pre-Dialysis) 124/50 mmHg BP Sitting (Post-Dialysis) 103/48 mmHg Concurrent Access: falseAV Fistula Upper Arm (Right) Arterial Sitting Heart Rate Pre-Dialysis 85 BPM BP Standing (Post-Dialysis) 101/55 mmHg Temperature Pre-Dialysis 97.5 degF Sitting Heart Ra te Post-Dialysis 77 BPM Standing Heart Rate Post-Gladis lysis 70 BPM Temperature Post-Dialysis 97 .3 degF February 20, 2024 In-Center Hemodialysis Treatment [id number]:18:44.000Z 4850-70-76N04:48:45.000Z BP Sitting (Pre-Dialysis) 131/44 mmHg BP Sitting (Post-Dialysis) 102/46 mmHg Concurrent Access: falseAV Fistula Upper Arm (Right) Arterial Sitting Heart Rate Pre-Dialysis 86 BPM BP Standing (Post-Dialysis) 109/44 mmHg Temperature Pre-Dialysis 97.8 degF Sitting Heart Ra te Post-Dialysis 76 BPM Standing Heart Rate Post-Gladis lysis 79 BPM Temperature Post-Dialysis 97 .8 degF February 18, 2024 In-Center Hemodialysis Treatment 9338-13-61O49:22:34.000Z 6252-84-98V84:53:33.000Z BP Sitting (Pre-Dialysis) 150/57 mmHg BP Sitting (Post-Dialysis) 131/48 mmHg Concurrent Access: falseAV Fistula Upper Arm (Right) Arterial Sitting Heart Rate Pre-Dialysis 96 BPM BP Standing (Post-Dialysis) 116/78 mmHg Temperature Pre-Dialysis 97.8 degF Sitting Heart Ra te Post-Dialysis 82 BPM Standing Heart Rate Post-Gladis lysis 83 BPM Temperature Post-Dialysis 97 .4 degF February 16, 2024 In-Center Hemodialysis Treatment [id number]:17:44.000Z 4076-73-30N49:45:45.000Z BP Sitting (Pre-Dialysis) 136/67 mmHg BP Sitting (Post-Dialysis) 108/78 mmHg Concurrent Access: falseAV Fistula Upper Arm (Right) Arterial Sitting Heart Rate Pre-Dialysis 84 BPM Sitting H eart Rate Post-Dialysis 77 BPM Temperature Pre-Dialysis 97.6 degF Temperature Post -Dialysis 97.8 degF February 13, 2024 In-Center Hemodialysis Treatment 4917-86-63O42:17:05.000Z 1167-40-43C12:49:05.000Z BP Sitting (Pre-Dialysis) 165/56 mmHg BP Sitting (Post-Dialysis) 102/50 mmHg Concurrent Access: falseAV Fistula Upper Arm (Right) Arterial BP Standing (Pre-Dialysis) 136/68 mmHg BP Standing (P ost-Dialysis) 112/44 mmHg Sitting Heart Rate Pre-Dialysis 85 BPM Sitting Heart Rate Post-Dialysis 84 BPM Standing Heart Rate Pre-Dialysis 85 BPM Standing Heart Rate Post-Dialysis 83 BPM Temperature Pre-Dialysis 97.8 degF Temperature Post -Dialysis 97.8 degF February 11, 2024 In-Center Hemodialysis Treatment 4860-08-72T14:47:00.000Z 9316-99-26H95:49:06.000Z BP Sitting (Pre-Dialysis) 136/75 mmHg BP Sitting (Post-Dialysis) 108/49 mmHg Concurrent Access: falseAV Fistula Upper Arm (Right) Arterial Sitting Heart Rate Pre-Dialysis 81 BPM BP Standing (Post-Dialysis) 105/48 mmHg Temperature Pre-Dialysis 97.5 degF Sitting Heart Ra te Post-Dialysis 82 BPM Standing Heart Rate Post-Gladis lysis 83 BPM Temperature Post-Dialysis 97 .5 degF February 09, 2024 In-Center Hemodialysis Treatment 7571-93-15T07:17:00.000Z 1028-83-43Y93:51:06.000Z BP Sitting (Pre-Dialysis) 126/46 mmHg BP Sitting (Post-Dialysis) 108/49 mmHg Concurrent Access: falseAV Fistula Upper Arm (Right) Arterial BP Standing (Pre-Dialysis) 138/43 mmHg BP Standing (P ost-Dialysis) 112/44 mmHg Sitting Heart Rate Pre-Dialysis 81 BPM Sitting Heart Rate Post-Dialysis 79 BPM Standing Heart Rate Pre-Dialysis 79 BPM Standing Heart Rate Post-Dialysis 86 BPM Temperature Pre-Dialysis 97.9 degF Temperature Post -Dialysis 97.2 degF February 06, 2024 In-Center Hemodialysis Treatment [id number]:17:05.000Z 5847-81-55E26:44:06.000Z BP Sitting (Pre-Dialysis) 150/57 mmHg BP Sitting (Post-Dialysis) 116/51 mmHg Concurrent Access: falseAV Fistula Upper Arm (Right) Arterial Sitting Heart Rate Pre-Dialysis 90 BPM Sitting H eart Rate Post-Dialysis 78 BPM Temperature Pre-Dialysis 97.8 degF Temperature Post -Dialysis 98.2 degF February 04, 2024 In-Center Hemodialysis Treatment 4118-60-06G78:25:05.000Z 3811-68-03R51:58:05.000Z BP Sitting (Pre-Dialysis) 156/60 mmHg BP Sitting (Post-Dialysis) 105/50 mmHg Concurrent Access: falseAV Fistula Upper Arm (Right) Arterial Sitting Heart Rate Pre-Dialysis 83 BPM BP Standing (Post-Dialysis) 133/51 mmHg Temperature Pre-Dialysis 97.9 degF Sitting Heart Ra te Post-Dialysis 78 BPM Standing Heart Rate Post-Gladis lysis 81 BPM Temperature Post-Dialysis 98 .4 degF February 02, 2024 In-Center Hemodialysis Treatment 9224-69-43X26:19:00.000Z 8565-51-76A18:49:06.000Z BP Sitting (Pre-Dialysis) 129/50 mmHg BP Sitting (Post-Dialysis) 125/54 mmHg Concurrent Access: falseAV Fistula Upper Arm (Right) Arterial Sitting Heart Rate Pre-Dialysis 85 BPM Sitting H eart Rate Post-Dialysis 82 BPM Temperature Pre-Dialysis 97.9 degF Temperature Post -Dialysis 97.9 degF January 30, 2024 In-Center Hemodialysis Treatment 6631-53-67J61:51:06.000Z 8526-76-27K40:51:07.000Z BP Sitting (Pre-Dialysis) 150/52 mmHg BP Sitting (Post-Dialysis) 101/57 mmHg Concurrent Access: falseAV Fistula Upper Arm (Right) Arterial Sitting Heart Rate Pre-Dialysis 81 BPM BP Standing (Post-Dialysis) 117/57 mmHg Temperature Pre-Dialysis 97.8 degF Sitting Heart Ra te Post-Dialysis 90 BPM Standing Heart Rate Post-Gladis lysis 99 BPM Temperature Post-Dialysis 97 .7 degF January 28, 2024 In-Center Hemodialysis Treatment 8632-40-64C50:18:00.000Z 1304-09-56M19:47:05.000Z BP Sitting (Pre-Dialysis) 131/52 mmHg BP Sitting (Post-Dialysis) 115/56 mmHg Concurrent Access: falseAV Fistula Upper Arm (Right) Arterial Sitting Heart Rate Pre-Dialysis 75 BPM Sitting H eart Rate Post-Dialysis 79 BPM Temperature Pre-Dialysis 97.9 degF Temperature Post -Dialysis 98.2 degF January 26, 2024 In-Center Hemodialysis Treatment 6350-52-26Q90:33:05.000Z 7310-87-58K14:49:06.000Z BP Sitting (Pre-Dialysis) 143/53 mmHg BP Sitting (Post-Dialysis) 105/50 mmHg Concurrent Access: falseAV Fistula Upper Arm (Right) Arterial Sitting Heart Rate Pre-Dialysis 78 BPM Sitting H eart Rate Post-Dialysis 79 BPM Temperature Pre-Dialysis 97.5 degF Temperature Post -Dialysis 97.4 degF January 23, 2024 In-Center Hemodialysis Treatment 5593-19-46B19:19:05.000Z 4926-62-71S10:52:05.000Z BP Sitting (Pre-Dialysis) 144/51 mmHg BP Sitting (Post-Dialysis) 110/53 mmHg Concurrent Access: falseAV Fistula Upper Arm (Right) Arterial Sitting Heart Rate Pre-Dialysis 82 BPM Sitting H eart Rate Post-Dialysis 78 BPM Temperature Pre-Dialysis 97.8 degF Temperature Post -Dialysis 98.2 degF January 21, 2024 In-Center Hemodialysis Treatment 4406-89-43Z92:02:00.000Z 0930-91-38E19:32:05.000Z BP Sitting (Pre-Dialysis) 150/62 mmHg BP Sitting (Post-Dialysis) 140/59 mmHg Concurrent Access: falseAV Fistula Upper Arm (Right) Arterial Sitting Heart Rate Pre-Dialysis 91 BPM Sitting H eart Rate Post-Dialysis 75 BPM Temperature Pre-Dialysis 97.9 degF Temperature Post -Dialysis 98.2 degF January 19, 2024 In-Center Hemodialysis Treatment 8960-38-63D30:22:05.000Z 2702-16-31Z66:48:06.000Z BP Sitting (Pre-Dialysis) 132/61 mmHg BP Sitting (Post-Dialysis) 144/52 mmHg Concurrent Access: falseAV Fistula Upper Arm (Right) Arterial BP Standing (Pre-Dialysis) 145/54 mmHg Sitti ng Heart Rate Post-Dialysis 82 BPM Sitting Heart Rate Pre-Dialysis 88 BPM Temperatu re Post-Dialysis 97.9 degF Standing Heart Rate Pre-Dialysis 83 BPM Temperature Pre-Dialysis 97.8 degF January 16, 2024 In-Center Hemodialysis Treatment [id number]:16:05.000Z 3138-42-48R97:46:06.000Z BP Sitting (Pre-Dialysis) 143/46 mmHg BP Sitting (Post-Dialysis) 125/56 mmHg Concurrent Access: falseAV Fistula Upper Arm (Right) Arterial Sitting Heart Rate Pre-Dialysis 78 BPM BP Standing (Post-Dialysis) 118/53 mmHg Temperature Pre-Dialysis 97.8 degF Sitting Heart Ra te Post-Dialysis 93 BPM Standing Heart Rate Post-Gladis lysis 96 BPM Temperature Post-Dialysis 97 .6 degF January 14, 2024 In-Center Hemodialysis Treatment 7697-36-36Q39:16:00.000Z 3115-30-04S18:39:06.000Z BP Sitting (Pre-Dialysis) 149/51 mmHg BP Sitting (Post-Dialysis) 110/48 mmHg Concurrent Access: falseAV Fistula Upper Arm (Right) Arterial Sitting Heart Rate Pre-Dialysis 83 BPM BP Standi ng (Post-Dialysis) 114/50 mmHg Temperature Pre-Dialysis 97 degF Sitting Heart Ra te Post-Dialysis 78 BPM Standing Heart Rate Post-Gladis lysis 81 BPM January 13, 2024 Sequential Treatment 8460-61-41Q66:04:00.000Z 9544-11-79Q66:07:15.000Z BP Sitting (Pre-Dialysis) 139/38 mmHg BP Sitting (Post-Dialysis) 117/50 mmHg Concurrent Access: falseAV Fistula Upper Arm (Right) Arterial Sitting Heart Rate Pre-Dialysis 82 BPM BP Standing (Post-Dialysis) 125/55 mmHg Temperature Pre-Dialysis 97.8 degF Sitting Heart Ra te Post-Dialysis 69 BPM Standing Heart Rate Post-Gladis lysis 70 BPM Temperature Post-Dialysis 97 .8 degF January 12, 2024 In-Center Hemodialysis Treatment 6739-81-02V92:18:05.000Z 5048-45-76L73:50:06.000Z BP Sitting (Pre-Dialysis) 139/35 mmHg BP Sitting (Post-Dialysis) 133/50 mmHg Concurrent Access: falseAV Fistula Upper Arm (Right) Arterial Sitting Heart Rate Pre-Dialysis 81 BPM Sitting H eart Rate Post-Dialysis 75 BPM Temperature Pre-Dialysis 97.8 degF Temperature Post -Dialysis 97.8 degF January 09, 2024 In-Center Hemodialysis Treatment 0940-26-11Z72:15:00.000Z 4689-22-87K12:45:06.000Z BP Sitting (Pre-Dialysis) 142/52 mmHg BP Sitting (Post-Dialysis) 131/64 mmHg Concurrent Access: falseAV Fistula Upper Arm (Right) Arterial BP Standing (Pre-Dialysis) 142/51 mmHg BP Standing (P ost-Dialysis) 133/59 mmHg Sitting Heart Rate Pre-Dialysis 75 BPM Sitting Heart Rate Post-Dialysis 79 BPM Standing Heart Rate Pre-Dialysis 78 BPM Standing Heart Rate Post-Dialysis 79 BPM Temperature Pre-Dialysis 97.8 degF Temperature Post -Dialysis 97.9 degF January 07, 2024 In-Center Hemodialysis Treatment 3575-56-50K12:13:05.000Z 8778-23-72M93:45:06.000Z BP Sitting (Pre-Dialysis) 143/53 mmHg BP Sitting (Post-Dialysis) 142/58 mmHg Concurrent Access: falseAV Fistula Upper Arm (Right) Arterial BP Standing (Pre-Dialysis) 167/61 mmHg Sitting Heart Rate Post-Dialysis 72 BPM Sitting Heart Rate Pre-Dialysis 76 BPM Temperatu re Post-Dialysis 98 degF Standing Heart Rate Pre-Dialysis 77 BPM Temperature Pre-Dialysis 97.8 degF January 05, 2024 In-Center Hemodialysis Treatment 4620-07-65Z79:17:05.000Z 0209-32-48V85:52:04.000Z BP Sitting (Pre-Dialysis) 142/59 mmHg BP Sitting (Post-Dialysis) 138/47 mmHg Concurrent Access: falseAV Fistula Upper Arm (Right) Arterial Sitting Heart Rate Pre-Dialysis 81 BPM Sitting H eart Rate Post-Dialysis 78 BPM Temperature Pre-Dialysis 97.8 degF Temperature Post -Dialysis 98 degF December 31, 2023 In-Center Hemodialysis Treatment 2405-42-63T14:20:05.000Z 4713-11-81W85:55:06.000Z BP Sitting (Pre-Dialysis) 172/71 mmHg BP Sitting (Post-Dialysis) 116/57 mmHg Concurrent Access: falseAV Fistula Upper Arm (Right) Arterial Sitting Heart Rate Pre-Dialysis 84 BPM BP Standing (Post-Dialysis) 144/63 mmHg Temperature Pre-Dialysis 97.8 degF Sitting Heart Ra te Post-Dialysis 76 BPM Standing Heart Rate Post-Gladis lysis 74 BPM Temperature Post-Dialysis 97 .3 degF December 29, 2023 In-Center Hemodialysis Treatment 6905-94-23J81:19:05.000Z 8886-98-62N62:48:06.000Z BP Sitting (Pre-Dialysis) 124/58 mmHg BP Sitting (Post-Dialysis) 115/55 mmHg Concurrent Access: falseAV Fistula Upper Arm (Right) Arterial Sitting Heart Rate Pre-Dialysis 77 BPM BP Standing (Post-Dialysis) 116/51 mmHg Temperature Pre-Dialysis 97.8 degF Sitting Heart Ra te Post-Dialysis 82 BPM Standing Heart Rate Post-Gladis lysis 77 BPM Temperature Post-Dialysis 97 .6 degF December 26, 2023 In-Center Hemodialysis Treatment 6055-71-57I32:17:05.000Z 6411-41-35T29:48:06.000Z BP Sitting (Pre-Dialysis) 140/56 mmHg BP Sitting (Post-Dialysis) 132/50 mmHg Concurrent Access: falseAV Fistula Upper Arm (Right) Arterial BP Standing (Pre-Dialysis) 158/60 mmHg BP Standing (P ost-Dialysis) 118/52 mmHg Sitting Heart Rate Pre-Dialysis 83 BPM Sitting Heart Rate Post-Dialysis 76 BPM Standing Heart Rate Pre-Dialysis 91 BPM Standing Heart Rate Post-Dialysis 77 BPM Temperature Pre-Dialysis 97.8 degF Temperature Post -Dialysis 97.7 degF December 24, 2023 In-Center Hemodialysis Treatment 4299-86-29R70:16:00.000Z 7904-65-16O23:49:06.000Z BP Sitting (Pre-Dialysis) 124/53 mmHg BP Sitting (Post-Dialysis) 138/56 mmHg Concurrent Access: falseAV Fistula Upper Arm (Right) Arterial Sitting Heart Rate Pre-Dialysis 83 BPM BP Standing (Post-Dialysis) 138/56 mmHg Temperature Pre-Dialysis 97.9 degF Sitting Heart Ra te Post-Dialysis 76 BPM Standing Heart Rate Post-Gladis lysis 76 BPM Temperature Post-Dialysis 97 .7 degF December 22, 2023 In-Center Hemodialysis Treatment 0361-83-72U28:14:05.000Z 0562-21-51I50:44:06.000Z BP Sitting (Pre-Dialysis) 149/43 mmHg BP Sitting (Post-Dialysis) 133/66 mmHg Concurrent Access: falseAV Fistula Upper Arm (Right) Arterial Sitting Heart Rate Pre-Dialysis 83 BPM BP Standing (Post-Dialysis) 143/56 mmHg Temperature Pre-Dialysis 97.8 degF Sitting Heart Ra te Post-Dialysis 74 BPM Standing Heart Rate Post-Gladis lysis 74 BPM Temperature Post-Dialysis 97 .8 degF December 19, 2023 In-Center Hemodialysis Treatment 0965-48-23C57:23:06.000Z 0738-24-99R80:49:05.000Z BP Sitting (Pre-Dialysis) 93/57 mmHg BP Sitting (Post-Dialysis) 125/46 mmHg Concurrent Access: falseAV Fistula Upper Arm (Right) Arterial BP Standing (Pre-Dialysis) 140/57 mmHg Sitti ng Heart Rate Post-Dialysis 78 BPM Sitting Heart Rate Pre-Dialysis 79 BPM Temperatu re Post-Dialysis 97.6 degF Standing Heart Rate Pre-Dialysis 85 BPM Temperature Pre-Dialysis 97.6 degF December 17, 2023 In-Center Hemodialysis Treatment 5672-91-71Y86:16:06.000Z 4192-59-70C07:44:05.000Z BP Sitting (Pre-Dialysis) 163/49 mmHg BP Sitting (Post-Dialysis) 93/40 mmHg Concurrent Access: falseAV Fistula Upper Arm (Right) Arterial Sitting Heart Rate Pre-Dialysis 79 BPM Sitting H eart Rate Post-Dialysis 80 BPM Temperature Pre-Dialysis 97.4 degF Temperature Post -Dialysis 97.3 degF December 15, 2023 In-Center Hemodialysis Treatment 5119-46-46C57:16:05.000Z 5407-04-01J68:48:05.000Z BP Sitting (Pre-Dialysis) 124/47 mmHg BP Sitting (Post-Dialysis) 110/43 mmHg Concurrent Access: falseAV Fistula Upper Arm (Right) Arterial BP Standing (Pre-Dialysis) 110/43 mmHg BP Standing (P ost-Dialysis) 102/45 mmHg Sitting Heart Rate Pre-Dialysis 75 BPM Sitting Heart Rate Post-Dialysis 72 BPM Standing Heart Rate Pre-Dialysis 72 BPM Standing Heart Rate Post-Dialysis 72 BPM Temperature Pre-Dialysis 97.8 degF Temperature Post -Dialysis 97.2 degF December 12, 2023 In-Center Hemodialysis Treatment 3273-78-21W75:24:13.000Z 7537-37-63I64:52:13.000Z BP Sitting (Pre-Dialysis) 136/46 mmHg BP Sitting (Post-Dialysis) 99/47 mmHg Concurrent Access: falseAV Fistula Upper Arm (Right) Arterial Sitting Heart Rate Pre-Dialysis 72 BPM BP Standing (Post-Dialysis) 108/48 mmHg Temperature Pre-Dialysis 97.8 degF Sitting Heart Ra te Post-Dialysis 79 BPM Standing Heart Rate Post-Gladis lysis 81 BPM Temperature Post-Dialysis 97 .8 degF December 10, 2023 In-Center Hemodialysis Treatment [id number]:15:05.000Z 3778-26-66F74:47:06.000Z BP Sitting (Pre-Dialysis) 113/54 mmHg BP Sitting (Post-Dialysis) 92/42 mmHg Concurrent Access: falseAV Fistula Upper Arm (Right) Arterial Sitting Heart Rate Pre-Dialysis 97 BPM Sitting H eart Rate Post-Dialysis 71 BPM Temperature Pre-Dialysis 97.8 degF Temperature Post -Dialysis 98 degF December 08, 2023 In-Center Hemodialysis Treatment 5177-11-97P91:20:00.000Z 7755-50-29P45:54:06.000Z BP Sitting (Pre-Dialysis) 130/58 mmHg BP Sitting (Post-Dialysis) 90/47 mmHg Concurrent Access: falseAV Fistula Upper Arm (Right) Arterial Sitting Heart Rate Pre-Dialysis 78 BPM Sitting H eart Rate Post-Dialysis 76 BPM Temperature Pre-Dialysis 97.8 degF Temperature Post -Dialysis 97.5 degF December 05, 2023 In-Center Hemodialysis Treatment 5844-09-90V31:15:06.000Z 5605-13-82K86:49:05.000Z BP Sitting (Pre-Dialysis) 117/61 mmHg BP Sitting (Post-Dialysis) 138/68 mmHg Concurrent Access: falseAV Fistula Upper Arm (Right) Arterial Sitting Heart Rate Pre-Dialysis 88 BPM Sitting H eart Rate Post-Dialysis 82 BPM Temperature Pre-Dialysis 97.8 degF Temperature Post -Dialysis 97.3 degF December 03, 2023 In-Center Hemodialysis Treatment 8528-98-26H81:17:06.000Z 2485-74-99J46:48:06.000Z BP Sitting (Pre-Dialysis) 114/45 mmHg BP Sitting (Post-Dialysis) 96/58 mmHg Concurrent Access: falseAV Fistula Upper Arm (Right) Arterial Sitting Heart Rate Pre-Dialysis 85 BPM BP Standing (Post-Dialysis) 132/50 mmHg Temperature Pre-Dialysis 97.8 degF Sitting Heart Ra te Post-Dialysis 79 BPM Standing Heart Rate Post-Gladis lysis 74 BPM Temperature Post-Dialysis 97 .3 degF December 01, 2023 In-Center Hemodialysis Treatment 6626-69-64U05:16:05.000Z 6182-90-56M50:50:05.000Z BP Sitting (Pre-Dialysis) 133/69 mmHg BP Sitting (Post-Dialysis) 108/44 mmHg Concurrent Access: falseAV Fistula Upper Arm (Right) Arterial BP Standing (Pre-Dialysis) 125/74 mmHg BP Standing (P ost-Dialysis) 102/45 mmHg Sitting Heart Rate Pre-Dialysis 61 BPM Sitting Heart Rate Post-Dialysis 78 BPM Standing Heart Rate Pre-Dialysis 75 BPM Standing Heart Rate Post-Dialysis 80 BPM Temperature Pre-Dialysis 97.8 degF Temperature Post -Dialysis 97.5 degF November 28, 2023 In-Center Hemodialysis Treatment 6264-46-69J25:18:00.000Z 8852-03-15R24:54:06.000Z BP Sitting (Pre-Dialysis) 115/48 mmHg BP Sitting (Post-Dialysis) 114/49 mmHg Concurrent Access: falseAV Fistula Upper Arm (Right) Arterial Sitting Heart Rate Pre-Dialysis 85 BPM BP Standing (Post-Dialysis) 100/48 mmHg Temperature Pre-Dialysis 97.8 degF Sitting Heart Ra te Post-Dialysis 81 BPM Standing Heart Rate Post-Gladis lysis 81 BPM Temperature Post-Dialysis 97 .5 degF November 26, 2023 In-Center Hemodialysis Treatment 7806-67-51N06:17:05.000Z 8284-43-72D07:49:05.000Z BP Sitting (Pre-Dialysis) 132/54 mmHg BP Sitting (Post-Dialysis) 105/41 mmHg Concurrent Access: falseAV Fistula Upper Arm (Right) Arterial Sitting Heart Rate Pre-Dialysis 83 BPM BP Standi ng (Post-Dialysis) 98/45 mmHg Temperature Pre-Dialysis 97.8 degF Sitting Heart Ra te Post-Dialysis 75 BPM Standing Heart Rate Post-Gladis lysis 80 BPM Temperature Post-Dialysis 97 .3 degF November 24, 2023 In-Center Hemodialysis Treatment 7702-88-62M40:18:05.000Z 7965-55-55P71:54:06.000Z BP Sitting (Pre-Dialysis) 160/61 mmHg BP Sitting (Post-Dialysis) 105/47 mmHg Concurrent Access: falseAV Fistula Upper Arm (Right) Arterial Sitting Heart Rate Pre-Dialysis 85 BPM BP Standi ng (Post-Dialysis) 107/42 mmHg Temperature Pre-Dialysis 97 degF Sitting Heart Ra te Post-Dialysis 73 BPM Standing Heart Rate Post-Gladis lysis 72 BPM Temperature Post-Dialysis 97 .5 degF November 21, 2023 In-Center Hemodialysis Treatment 7478-90-30C88:14:05.000Z 9171-84-16K51:46:05.000Z BP Sitting (Pre-Dialysis) 132/56 mmHg BP Sitting (Post-Dialysis) 109/55 mmHg Concurrent Access: falseAV Fistula Upper Arm (Right) Arterial Sitting Heart Rate Pre-Dialysis 85 BPM Sitting H eart Rate Post-Dialysis 78 BPM Temperature Pre-Dialysis 97.8 degF Temperature Post -Dialysis 97.7 degF November 19, 2023 In-Center Hemodialysis Treatment 5691-87-62B45:17:05.000Z 1551-49-74J55:48:05.000Z BP Sitting (Pre-Dialysis) 132/46 mmHg BP Sitting (Post-Dialysis) 131/54 mmHg Concurrent Access: falseAV Fistula Upper Arm (Right) Arterial Sitting Heart Rate Pre-Dialysis 82 BPM BP Standing (Post-Dialysis) 121/55 mmHg Temperature Pre-Dialysis 97.8 degF Sitting Heart Ra te Post-Dialysis 74 BPM Standing Heart Rate Post-Gladis lysis 74 BPM Temperature Post-Dialysis 97 degF November 17, 2023 In-Center Hemodialysis Treatment 9339-59-61I09:16:00.000Z 7385-86-97P05:36:05.000Z BP Sitting (Pre-Dialysis) 130/76 mmHg BP Sitting (Post-Dialysis) 94/43 mmHg Concurrent Access: falseAV Fistula Upper Arm (Right) Arterial Sitting Heart Rate Pre-Dialysis 86 BPM Sitting H eart Rate Post-Dialysis 77 BPM Temperature Pre-Dialysis 97.5 degF Temperature Post -Dialysis 97.2 degF November 14, 2023 In-Center Hemodialysis Treatment 7021-48-73N31:15:44.000Z 2301-35-05N62:48:44.000Z BP Sitting (Pre-Dialysis) 153/100 mmHg BP Sitting (Post-Dialysis) 111/52 mmHg Concurrent Access: falseAV Fistula Upper Arm (Right) Arterial Sitting Heart Rate Pre-Dialysis 83 BPM Sitting H eart Rate Post-Dialysis 79 BPM Temperature Pre-Dialysis 97.8 degF Temperature Post -Dialysis 97.3 degF November 12, 2023 In-Center Hemodialysis Treatment 6689-41-92P71:17:44.000Z 1208-08-06Z64:53:44.000Z BP Sitting (Pre-Dialysis) 127/53 mmHg BP Sitting (Post-Dialysis) 121/55 mmHg Concurrent Access: falseAV Fistula Upper Arm (Right) Arterial Sitting Heart Rate Pre-Dialysis 87 BPM BP Standi ng (Post-Dialysis) 98/51 mmHg Temperature Pre-Dialysis 97.9 degF Sitting Heart Ra te Post-Dialysis 75 BPM Standing Heart Rate Post-Gladis lysis 83 BPM Temperature Post-Dialysis 97 .5 degF November 10, 2023 In-Center Hemodialysis Treatment 5439-68-29V40:16:55.000Z 3797-74-45F52:47:56.000Z BP Sitting (Pre-Dialysis) 157/57 mmHg BP Sitting (Post-Dialysis) 119/48 mmHg Concurrent Access: falseAV Fistula Upper Arm (Right) Arterial Sitting Heart Rate Pre-Dialysis 85 BPM Sitting H eart Rate Post-Dialysis 81 BPM Temperature Pre-Dialysis 97.8 degF Temperature Post -Dialysis 97.2 degF November 07, 2023 In-Center Hemodialysis Treatment 3399-58-76N15:16:00.000Z 1155-17-40R89:32:13.000Z BP Sitting (Pre-Dialysis) 150/62 mmHg BP Sitting (Post-Dialysis) 106/58 mmHg Concurrent Access: falseAV Fistula Upper Arm (Right) Arterial Sitting Heart Rate Pre-Dialysis 85 BPM Sitting H eart Rate Post-Dialysis 85 BPM Temperature Pre-Dialysis 97.9 degF Temperature Post -Dialysis 97.5 degF November 06, 2023 In-Center Hemodialysis Treatment 0816-75-04P66:25:00.000Z 6703-02-41R42:31:32.000Z BP Sitting (Pre-Dialysis) 149/72 mmHg BP Sitting (Post-Dialysis) 96/49 mmHg Concurrent Access: falseAV Fistula Upper Arm (Right) Arterial BP Standing (Pre-Dialysis) 143/59 mmHg BP Standing (P ost-Dialysis) 118/57 mmHg Sitting Heart Rate Pre-Dialysis 92 BPM Sitting Heart Rate Post-Dialysis 79 BPM Standing Heart Rate Pre-Dialysis 99 BPM Standing Heart Rate Post-Dialysis 82 BPM Temperature Pre-Dialysis 97.5 degF Temperature Post -Dialysis 98 degF November 05, 2023 In-Center Hemodialysis Treatment 7385-50-19B07:18:13.000Z 0809-68-68Y92:50:14.000Z BP Sitting (Pre-Dialysis) 159/89 mmHg BP Sitting (Post-Dialysis) 113/63 mmHg Concurrent Access: falseAV Fistula Upper Arm (Right) Arterial BP Standing (Pre-Dialysis) 128/105 mmHg BP Standing (P ost-Dialysis) 153/63 mmHg Sitting Heart Rate Pre-Dialysis 91 BPM Sitting Heart Rate Post-Dialysis 79 BPM Standing Heart Rate Pre-Dialysis 94 BPM Standing Heart Rate Post-Dialysis 52 BPM Temperature Pre-Dialysis 97.5 degF Temperature Post -Dialysis 97.6 degF October 31, 2023 In-Center Hemodialysis Treatment [id number]:19:00.000Z 0053-51-42E92:50:45.000Z BP Sitting (Pre-Dialysis) 152/74 mmHg BP Sitting (Post-Dialysis) 112/49 mmHg Concurrent Access: falseAV Fistula Upper Arm (Right) Arterial Sitting Heart Rate Pre-Dialysis 87 BPM BP Standing (Post-Dialysis) 120/43 mmHg Temperature Pre-Dialysis 97.9 degF Sitting Heart Ra te Post-Dialysis 84 BPM Standing Heart Rate Post-Gladis lysis 87 BPM Temperature Post-Dialysis 97 .7 degF October 29, 2023 In-Center Hemodialysis Treatment [id number]:15:00.000Z 8185-82-32O78:46:45.000Z BP Sitting (Pre-Dialysis) 145/59 mmHg BP Sitting (Post-Dialysis) 125/54 mmHg Concurrent Access: falseAV Fistula Upper Arm (Right) Arterial Sitting Heart Rate Pre-Dialysis 82 BPM BP Standing (Post-Dialysis) 142/56 mmHg Temperature Pre-Dialysis 97.8 degF Sitting Heart Ra te Post-Dialysis 84 BPM Standing Heart Rate Post-Gladis lysis 87 BPM Temperature Post-Dialysis 97 .2 degF October 27, 2023 In-Center Hemodialysis Treatment [id number]:16:45.000Z 6227-25-58N07:48:45.000Z BP Sitting (Pre-Dialysis) 164/56 mmHg BP Sitting (Post-Dialysis) 129/56 mmHg Concurrent Access: falseAV Fistula Upper Arm (Right) Arterial Sitting Heart Rate Pre-Dialysis 78 BPM BP Standing (Post-Dialysis) 146/56 mmHg Temperature Pre-Dialysis 97.4 degF Sitting Heart Ra te Post-Dialysis 80 BPM Standing Heart Rate Post-Gladis lysis 84 BPM Temperature Post-Dialysis 97 .4 degF October 24, 2023 In-Center Hemodialysis Treatment [id number]:13:10.000Z 0879-32-77S60:45:11.000Z BP Sitting (Pre-Dialysis) 142/46 mmHg BP Sitting (Post-Dialysis) 110/37 mmHg Concurrent Access: falseAV Fistula Upper Arm (Right) Arterial Sitting Heart Rate Pre-Dialysis 93 BPM Sitting H eart Rate Post-Dialysis 81 BPM Temperature Pre-Dialysis 97.8 degF Temperature Post -Dialysis 97.8 degF October 22, 2023 In-Center Hemodialysis Treatment 5046-66-15J31:18:00.000Z 3829-01-71N67:53:10.000Z BP Sitting (Pre-Dialysis) 128/48 mmHg BP Sitting (Post-Dialysis) 118/47 mmHg Concurrent Access: falseAV Fistula Upper Arm (Right) Arterial BP Standing (Pre-Dialysis) 158/136 mmHg BP Standing (P ost-Dialysis) 110/53 mmHg Sitting Heart Rate Pre-Dialysis 82 BPM Sitting Heart Rate Post-Dialysis 75 BPM Standing Heart Rate Pre-Dialysis 63 BPM Standing Heart Rate Post-Dialysis 78 BPM Temperature Pre-Dialysis 97.8 degF Temperature Post -Dialysis 97.2 degF October 20, 2023 In-Center Hemodialysis Treatment [id number]:19:00.000Z 4680-27-65J32:54:10.000Z BP Sitting (Pre-Dialysis) 203/68 mmHg BP Sitting (Post-Dialysis) 132/52 mmHg Concurrent Access: falseAV Fistula Upper Arm (Right) Arterial Sitting Heart Rate Pre-Dialysis 88 BPM BP Standing (Post-Dialysis) 119/48 mmHg Temperature Pre-Dialysis 97.9 degF Sitting Heart Ra te Post-Dialysis 79 BPM Standing Heart Rate Post-Gladis lysis 77 BPM Temperature Post-Dialysis 97 .2 degF October 17, 2023 In-Center Hemodialysis Treatment [id number]:16:25.000Z 4299-69-41V17:48:25.000Z BP Sitting (Pre-Dialysis) 163/58 mmHg BP Sitting (Post-Dialysis) 132/51 mmHg Concurrent Access: falseAV Fistula Upper Arm (Right) Arterial Sitting Heart Rate Pre-Dialysis 58 BPM Sitting H eart Rate Post-Dialysis 78 BPM Temperature Pre-Dialysis 97.8 degF Temperature Post -Dialysis 97.6 degF October 15, 2023 In-Center Hemodialysis Treatment [id number]:16:36.000Z 7657-19-80D32:55:54.000Z BP Sitting (Pre-Dialysis) 146/59 mmHg BP Sitting (Post-Dialysis) 138/98 mmHg Concurrent Access: falseAV Fistula Upper Arm (Right) Arterial BP Standing (Pre-Dialysis) 138/62 mmHg Sitti ng Heart Rate Post-Dialysis 69 BPM Sitting Heart Rate Pre-Dialysis 85 BPM Temperatu re Post-Dialysis 97.6 degF Standing Heart Rate Pre-Dialysis 86 BPM Temperature Pre-Dialysis 97.4 degF October 13, 2023 In-Center Hemodialysis Treatment [id number]:15:25.000Z 8381-86-82E41:46:25.000Z BP Sitting (Pre-Dialysis) 152/74 mmHg BP Sitting (Post-Dialysis) 109/54 mmHg Concurrent Access: falseAV Fistula Upper Arm (Right) Arterial Sitting Heart Rate Pre-Dialysis 86 BPM Sitting H eart Rate Post-Dialysis 80 BPM Temperature Pre-Dialysis 97.8 degF Temperature Post -Dialysis 97.8 degF October 10, 2023 In-Center Hemodialysis Treatment 1601-70-22N40:18:28.000Z 5440-78-14C40:50:28.000Z BP Sitting (Pre-Dialysis) 161/52 mmHg BP Sitting (Post-Dialysis) 119/47 mmHg Concurrent Access: falseAV Fistula Upper Arm (Right) Arterial Sitting Heart Rate Pre-Dialysis 76 BPM Sitting H eart Rate Post-Dialysis 81 BPM Temperature Pre-Dialysis 97.8 degF Temperature Post -Dialysis 97.3 degF October 08, 2023 In-Center Hemodialysis Treatment 0297-27-41Q74:14:00.000Z 7858-16-63W91:46:00.000Z BP Sitting (Pre-Dialysis) 163/57 mmHg BP Sitting (Post-Dialysis) 130/68 mmHg Concurrent Access: falseAV Fistula Upper Arm (Right) Arterial Sitting Heart Rate Pre-Dialysis 83 BPM BP Standing (Post-Dialysis) 142/73 mmHg Temperature Pre-Dialysis 97.5 degF Sitting Heart Ra te Post-Dialysis 82 BPM Standing Heart Rate Post-Gladis lysis 89 BPM Temperature Post-Dialysis 97 .6 degF October 06, 2023 In-Center Hemodialysis Treatment [id number]:22:28.000Z 5178-52-20O04:58:29.000Z BP Sitting (Pre-Dialysis) 153/54 mmHg BP Sitting (Post-Dialysis) 123/50 mmHg Concurrent Access: falseAV Fistula Upper Arm (Right) Arterial Sitting Heart Rate Pre-Dialysis 96 BPM Sitting H eart Rate Post-Dialysis 81 BPM Temperature Pre-Dialysis 98.1 degF Temperature Post -Dialysis 97.7 degF October 03, 2023 In-Center Hemodialysis Treatment [id number]:17:28.000Z 1350-49-10B70:47:29.000Z BP Sitting (Pre-Dialysis) 149/63 mmHg BP Sitting (Post-Dialysis) 108/50 mmHg Concurrent Access: falseAV Fistula Upper Arm (Right) Arterial Sitting Heart Rate Pre-Dialysis 87 BPM BP Standing (Post-Dialysis) 109/36 mmHg Temperature Pre-Dialysis 97.8 degF Sitting Heart Ra te Post-Dialysis 88 BPM Standing Heart Rate Post-Gladis lysis 76 BPM Temperature Post-Dialysis 97 .3 degF October 01, 2023 In-Center Hemodialysis Treatment [id number]:19:28.000Z 2465-31-49C22:49:28.000Z BP Sitting (Pre-Dialysis) 144/80 mmHg BP Sitting (Post-Dialysis) 162/38 mmHg Concurrent Access: falseAV Fistula Upper Arm (Right) Arterial Sitting Heart Rate Pre-Dialysis 84 BPM Sitting H eart Rate Post-Dialysis 78 BPM Temperature Pre-Dialysis 97.8 degF Temperature Post -Dialysis 97.6 degF September 29, 2023 In-Center Hemodialysis Treatment [id number]:21:00.000Z 6995-66-65V75:52:00.000Z BP Sitting (Pre-Dialysis) 133/52 mmHg BP Sitting (Post-Dialysis) 108/56 mmHg Concurrent Access: falseAV Fistula Upper Arm (Right) Arterial Sitting Heart Rate Pre-Dialysis 83 BPM BP Standing (Post-Dialysis) 158/53 mmHg Temperature Pre-Dialysis 97.8 degF Sitting Heart Ra te Post-Dialysis 79 BPM Standing Heart Rate Post-Gladis lysis 81 BPM Temperature Post-Dialysis 97 degF September 26, 2023 In-Center Hemodialysis Treatment 0582-78-28O15:20:23.000Z 4780-14-97M25:59:23.000Z BP Sitting (Pre-Dialysis) 152/50 mmHg BP Sitting (Post-Dialysis) 134/42 mmHg Concurrent Access: falseAV Fistula Upper Arm (Right) Arterial Sitting Heart Rate Pre-Dialysis 79 BPM Sitting H eart Rate Post-Dialysis 76 BPM Temperature Pre-Dialysis 97.8 degF Temperature Post -Dialysis 97.4 degF September 24, 2023 In-Center Hemodialysis Treatment 8037-72-26W11:19:08.000Z 1298-56-74B69:50:09.000Z BP Sitting (Pre-Dialysis) 154/57 mmHg BP Sitting (Post-Dialysis) 140/57 mmHg Concurrent Access: falseAV Fistula Upper Arm (Right) Arterial Sitting Heart Rate Pre-Dialysis 78 BPM BP Standing (Post-Dialysis) 120/47 mmHg Temperature Pre-Dialysis 97.8 degF Sitting Heart Ra te Post-Dialysis 66 BPM Standing Heart Rate Post-Gladis lysis 74 BPM Temperature Post-Dialysis 97 .6 degF September 22, 2023 In-Center Hemodialysis Treatment 2708-79-34U72:13:00.000Z 4986-37-43W41:43:09.000Z BP Sitting (Pre-Dialysis) 163/63 mmHg BP Sitting (Post-Dialysis) 99/63 mmHg Concurrent Access: falseAV Fistula Upper Arm (Right) Arterial Sitting Heart Rate Pre-Dialysis 92 BPM BP Standing (Post-Dialysis) 113/45 mmHg Temperature Pre-Dialysis 97.5 degF Sitting Heart Ra te Post-Dialysis 76 BPM Standing Heart Rate Post-Gladis lysis 72 BPM Temperature Post-Dialysis 97 .6 degF September 19, 2023 In-Center Hemodialysis Treatment 5397-40-93E93:23:00.000Z 1544-28-18E75:46:00.000Z BP Sitting (Pre-Dialysis) 122/60 mmHg BP Sitting (Post-Dialysis) 110/47 mmHg Concurrent Access: falseAV Fistula Upper Arm (Right) Arterial Sitting Heart Rate Pre-Dialysis 80 BPM BP Standing (Post-Dialysis) 116/39 mmHg Temperature Pre-Dialysis 97.8 degF Sitting Heart Ra te Post-Dialysis 79 BPM Standing Heart Rate Post-Gladis lysis 77 BPM Temperature Post-Dialysis 97 .8 degF September 17, 2023 In-Center Hemodialysis Treatment [id number]:18:20.000Z 0742-20-51V42:50:20.000Z BP Sitting (Pre-Dialysis) 135/47 mmHg BP Sitting (Post-Dialysis) 98/51 mmHg Concurrent Access: falseAV Fistula Upper Arm (Right) Arterial Sitting Heart Rate Pre-Dialysis 81 BPM Sitting H eart Rate Post-Dialysis 79 BPM Temperature Pre-Dialysis 97.8 degF September 15, 2023 In-Center Hemodialysis Treatment 7024-52-15F05:18:00.000Z 4773-41-24J81:29:20.000Z BP Sitting (Pre-Dialysis) 142/45 mmHg BP Sitting (Post-Dialysis) 112/49 mmHg Concurrent Access: falseAV Fistula Upper Arm (Right) Arterial Sitting Heart Rate Pre-Dialysis 76 BPM BP Standing (Post-Dialysis) 101/63 mmHg Temperature Pre-Dialysis 97.8 degF Sitting Heart Ra te Post-Dialysis 68 BPM Standing Heart Rate Post-Gladis lysis 80 BPM Temperature Post-Dialysis 97 .4 degF September 12, 2023 In-Center Hemodialysis Treatment [id number]:16:07.000Z 3470-29-94F64:43:07.000Z BP Sitting (Pre-Dialysis) 122/55 mmHg BP Sitting (Post-Dialysis) 115/91 mmHg Concurrent Access: falseAV Fistula Upper Arm (Right) Arterial Sitting Heart Rate Pre-Dialysis 85 BPM BP Standing (Post-Dialysis) 108/41 mmHg Temperature Pre-Dialysis 97.8 degF Sitting Heart Ra te Post-Dialysis 80 BPM Standing Heart Rate Post-Gladis lysis 78 BPM Temperature Post-Dialysis 97 degF September 10, 2023 In-Center Hemodialysis Treatment [id number]:18:07.000Z 0672-04-83O79:49:07.000Z BP Sitting (Pre-Dialysis) 160/52 mmHg BP Sitting (Post-Dialysis) 95/55 mmHg Concurrent Access: falseAV Fistula Upper Arm (Right) Arterial Sitting Heart Rate Pre-Dialysis 80 BPM BP Standing (Post-Dialysis) 115/45 mmHg Temperature Pre-Dialysis 97.8 degF Sitting Heart Ra te Post-Dialysis 79 BPM Standing Heart Rate Post-Gladis lysis 77 BPM Temperature Post-Dialysis 97 .7 degF September 08, 2023 In-Center Hemodialysis Treatment 7482-51-51U71:17:07.000Z 1822-22-75R39:35:07.000Z BP Sitting (Pre-Dialysis) 101/46 mmHg BP Sitting (Post-Dialysis) 128/99 mmHg Concurrent Access: falseAV Fistula Upper Arm (Right) Arterial Sitting Heart Rate Pre-Dialysis 90 BPM BP Standing (Post-Dialysis) 102/49 mmHg Temperature Pre-Dialysis 97.8 degF Sitting Heart Ra te Post-Dialysis 71 BPM Standing Heart Rate Post-Gladis lysis 78 BPM Temperature Post-Dialysis 97 .9 degF September 05, 2023 In-Center Hemodialysis Treatment [id number]:20:56.000Z 3887-52-66C89:51:56.000Z BP Sitting (Pre-Dialysis) 128/107 mmHg BP Sitting (Post-Dialysis) 112/45 mmHg Concurrent Access: falseAV Fistula Upper Arm (Right) Arterial Sitting Heart Rate Pre-Dialysis 48 BPM BP Standing (Post-Dialysis) 109/50 mmHg Temperature Pre-Dialysis 97.8 degF Sitting Heart Ra te Post-Dialysis 80 BPM Standing Heart Rate Post-Gladis lysis 85 BPM Temperature Post-Dialysis 97 .8 degF September 03, 2023 In-Center Hemodialysis Treatment 2221-59-02W44:18:04.000Z 0975-34-01U66:48:05.000Z BP Sitting (Pre-Dialysis) 144/59 mmHg BP Sitting (Post-Dialysis) 114/50 mmHg Concurrent Access: falseAV Fistula Upper Arm (Right) Arterial Sitting Heart Rate Pre-Dialysis 81 BPM Sitting H eart Rate Post-Dialysis 89 BPM Temperature Pre-Dialysis 97.8 degF Temperature Post -Dialysis 97.6 degF September 01, 2023 In-Center Hemodialysis Treatment 7649-43-90L52:15:00.000Z 2360-00-50U54:50:56.000Z BP Sitting (Pre-Dialysis) 141/60 mmHg BP Sitting (Post-Dialysis) 138/47 mmHg Concurrent Access: falseAV Fistula Upper Arm (Right) Arterial Sitting Heart Rate Pre-Dialysis 81 BPM BP Standing (Post-Dialysis) 118/54 mmHg Temperature Pre-Dialysis 97.8 degF Sitting Heart Ra te Post-Dialysis 81 BPM Standing Heart Rate Post-Gladis lysis 79 BPM Temperature Post-Dialysis 97 .8 degF August 29, 2023 In-Center Hemodialysis Treatment 8569-71-02W51:18:20.000Z 7550-96-03X14:31:20.000Z BP Sitting (Pre-Dialysis) 147/50 mmHg BP Sitting (Post-Dialysis) 100/44 mmHg Concurrent Access: falseAV Fistula Upper Arm (Right) Arterial Sitting Heart Rate Pre-Dialysis 88 BPM BP Standing (Post-Dialysis) 104/43 mmHg Temperature Pre-Dialysis 97.8 degF Sitting Heart Ra te Post-Dialysis 87 BPM Standing Heart Rate Post-Gladis lysis 86 BPM Temperature Post-Dialysis 97 .3 degF August 27, 2023 In-Center Hemodialysis Treatment 4172-76-39M81:20:03.000Z 7538-79-46R76:52:03.000Z BP Sitting (Pre-Dialysis) 156/61 mmHg BP Sitting (Post-Dialysis) 109/58 mmHg Concurrent Access: falseAV Fistula Upper Arm (Right) Arterial Sitting Heart Rate Pre-Dialysis 81 BPM Sitting H eart Rate Post-Dialysis 87 BPM Temperature Pre-Dialysis 97.8 degF Temperature Post -Dialysis 97.6 degF August 25, 2023 In-Center Hemodialysis Treatment 1711-51-38M47:14:20.000Z 7021-41-96A62:48:20.000Z BP Sitting (Pre-Dialysis) 135/55 mmHg BP Sitting (Post-Dialysis) 101/43 mmHg Concurrent Access: falseAV Fistula Upper Arm (Right) Arterial Sitting Heart Rate Pre-Dialysis 81 BPM BP Standing (Post-Dialysis) 103/38 mmHg Temperature Pre-Dialysis 97.8 degF Sitting Heart Ra te Post-Dialysis 84 BPM Standing Heart Rate Post-Gladis lysis 94 BPM Temperature Post-Dialysis 97 .3 degF August 22, 2023 In-Center Hemodialysis Treatment 4687-96-28H18:16:26.000Z 8228-30-75V28:45:25.000Z BP Sitting (Pre-Dialysis) 113/37 mmHg BP Sitting (Post-Dialysis) 111/33 mmHg Concurrent Access: falseAV Fistula Upper Arm (Right) Arterial Sitting Heart Rate Pre-Dialysis 86 BPM Sitting H eart Rate Post-Dialysis 87 BPM Temperature Pre-Dialysis 97.8 degF Temperature Post -Dialysis 97.4 degF August 20, 2023 In-Center Hemodialysis Treatment 1843-01-51Q90:15:33.000Z 1195-53-39L98:36:34.000Z BP Sitting (Pre-Dialysis) 147/72 mmHg BP Sitting (Post-Dialysis) 99/51 mmHg Concurrent Access: falseAV Fistula Upper Arm (Right) Arterial Sitting Heart Rate Pre-Dialysis 94 BPM Sitting H eart Rate Post-Dialysis 64 BPM Temperature Pre-Dialysis 97.3 degF Temperature Post -Dialysis 97.3 degF August 18, 2023 In-Center Hemodialysis Treatment 5594-62-42P97:14:33.000Z 3859-33-06Z46:43:34.000Z BP Sitting (Pre-Dialysis) 169/58 mmHg BP Sitting (Post-Dialysis) 115/41 mmHg Concurrent Access: falseAV Fistula Upper Arm (Right) Arterial Sitting Heart Rate Pre-Dialysis 87 BPM Sitting H eart Rate Post-Dialysis 90 BPM Temperature Pre-Dialysis 97.8 degF Temperature Post -Dialysis 97.8 degF August 15, 2023 In-Center Hemodialysis Treatment 5529-96-73G06:18:25.000Z 8502-67-73A91:48:49.000Z BP Sitting (Pre-Dialysis) 140/44 mmHg BP Sitting (Post-Dialysis) 93/48 mmHg Concurrent Access: falseAV Fistula Upper Arm (Right) Arterial Sitting Heart Rate Pre-Dialysis 85 BPM Sitting H eart Rate Post-Dialysis 68 BPM Temperature Pre-Dialysis 97.8 degF Temperature Post -Dialysis 97.2 degF August 13, 2023 In-Center Hemodialysis Treatment 9208-63-74W61:18:25.000Z 9551-88-87X79:49:25.000Z BP Sitting (Pre-Dialysis) 140/47 mmHg BP Sitting (Post-Dialysis) 91/51 mmHg Concurrent Access: falseAV Fistula Upper Arm (Right) Arterial Sitting Heart Rate Pre-Dialysis 87 BPM BP Standing (Post-Dialysis) 111/52 mmHg Temperature Pre-Dialysis 97.8 degF Sitting Heart Ra te Post-Dialysis 90 BPM Standing Heart Rate Post-Gladis lysis 89 BPM Temperature Post-Dialysis 97 .5 degF August 11, 2023 In-Center Hemodialysis Treatment 1407-66-65Q55:19:25.000Z 7839-46-78M71:48:25.000Z BP Sitting (Pre-Dialysis) 137/33 mmHg BP Sitting (Post-Dialysis) 120/41 mmHg Concurrent Access: falseAV Fistula Upper Arm (Right) Arterial Sitting Heart Rate Pre-Dialysis 44 BPM Sitting H eart Rate Post-Dialysis 77 BPM Temperature Pre-Dialysis 97.8 degF Temperature Post -Dialysis 97.8 degF August 08, 2023 In-Center Hemodialysis Treatment 9774-66-83W01:15:20.000Z 6603-07-32Q70:47:20.000Z BP Sitting (Pre-Dialysis) 142/52 mmHg BP Sitting (Post-Dialysis) 110/36 mmHg Concurrent Access: falseAV Fistula Upper Arm (Right) Arterial Sitting Heart Rate Pre-Dialysis 81 BPM BP Standing (Post-Dialysis) 132/38 mmHg Temperature Pre-Dialysis 97.8 degF Sitting Heart Ra te Post-Dialysis 81 BPM Standing Heart Rate Post-Gladis lysis 88 BPM Temperature Post-Dialysis 97 .8 degF August 06, 2023 In-Center Hemodialysis Treatment 9703-33-19T96:14:20.000Z 9661-18-57N66:50:20.000Z BP Sitting (Pre-Dialysis) 125/43 mmHg BP Sitting (Post-Dialysis) 111/32 mmHg Concurrent Access: falseAV Fistula Upper Arm (Right) Arterial Sitting Heart Rate Pre-Dialysis 84 BPM BP Standing (Post-Dialysis) 108/64 mmHg Temperature Pre-Dialysis 97.8 degF Sitting Heart Ra te Post-Dialysis 89 BPM Standing Heart Rate Post-Gladis lysis 82 BPM Temperature Post-Dialysis 97 .3 degF August 04, 2023 In-Center Hemodialysis Treatment 2504-09-30X96:14:20.000Z 2062-49-21F14:33:20.000Z BP Sitting (Pre-Dialysis) 111/51 mmHg BP Sitting (Post-Dialysis) 91/31 mmHg Concurrent Access: falseAV Fistula Upper Arm (Right) Arterial Sitting Heart Rate Pre-Dialysis 87 BPM Sitting H eart Rate Post-Dialysis 81 BPM Temperature Pre-Dialysis 97.8 degF Temperature Post -Dialysis 97.3 degF August 01, 2023 In-Center Hemodialysis Treatment 1642-57-28F99:20:17.000Z 2492-24-55Q90:49:17.000Z BP Sitting (Pre-Dialysis) 141/57 mmHg BP Sitting (Post-Dialysis) 101/49 mmHg Concurrent Access: falseAV Fistula Upper Arm (Right) Arterial Sitting Heart Rate Pre-Dialysis 80 BPM Sitting H eart Rate Post-Dialysis 93 BPM Temperature Pre-Dialysis 97.8 degF Temperature Post -Dialysis 97.5 degF July 30, 2023 In-Center Hemodialysis Treatment 6753-74-56V26:16:00.000Z 1356-27-47V67:34:17.000Z BP Sitting (Pre-Dialysis) 130/48 mmHg BP Sitting (Post-Dialysis) 131/56 mmHg Concurrent Access: falseAV Fistula Upper Arm (Right) Arterial Sitting Heart Rate Pre-Dialysis 89 BPM Sitting H eart Rate Post-Dialysis 87 BPM Temperature Pre-Dialysis 97.8 degF Temperature Post -Dialysis 97.8 degF July 28, 2023 In-Center Hemodialysis Treatment 1698-67-22T94:16:17.000Z 4060-54-50I85:51:17.000Z BP Sitting (Pre-Dialysis) 165/56 mmHg BP Sitting (Post-Dialysis) 94/31 mmHg Concurrent Access: falseAV Fistula Upper Arm (Right) Arterial Sitting Heart Rate Pre-Dialysis 94 BPM BP Standi ng (Post-Dialysis) 98/41 mmHg Temperature Pre-Dialysis 97.8 degF Sitting Heart Ra te Post-Dialysis 84 BPM Standing Heart Rate Post-Gladis lysis 78 BPM Temperature Post-Dialysis 97 .8 degF July 25, 2023 In-Center Hemodialysis Treatment 4220-28-67F32:16:46.000Z 8743-27-23V93:35:46.000Z BP Sitting (Pre-Dialysis) 151/49 mmHg BP Sitting (Post-Dialysis) 90/48 mmHg Concurrent Access: falseAV Fistula Upper Arm (Right) Arterial Sitting Heart Rate Pre-Dialysis 96 BPM BP Standing (Post-Dialysis) 100/38 mmHg Temperature Pre-Dialysis 97.8 degF Sitting Heart Ra te Post-Dialysis 88 BPM Standing Heart Rate Post-Gladis lysis 80 BPM Temperature Post-Dialysis 97 .2 degF July 23, 2023 In-Center Hemodialysis Treatment [id number]:15:46.000Z 6989-53-69G11:46:46.000Z BP Sitting (Pre-Dialysis) 104/54 mmHg BP Sitting (Post-Dialysis) 107/44 mmHg Concurrent Access: falseAV Fistula Upper Arm (Right) Arterial Sitting Heart Rate Pre-Dialysis 83 BPM Sitting H eart Rate Post-Dialysis 75 BPM Temperature Pre-Dialysis 97.8 degF Temperature Post -Dialysis 97.6 degF July 21, 2023 In-Center Hemodialysis Treatment 2899-18-91B55:15:17.000Z 2706-43-72Y33:48:18.000Z BP Sitting (Pre-Dialysis) 152/68 mmHg BP Sitting (Post-Dialysis) 116/47 mmHg Concurrent Access: falseAV Fistula Upper Arm (Right) Arterial Sitting Heart Rate Pre-Dialysis 81 BPM Sitting H eart Rate Post-Dialysis 75 BPM Temperature Pre-Dialysis 97.8 degF Temperature Post -Dialysis 97.5 degF July 18, 2023 In-Center Hemodialysis Treatment 5444-84-35H47:17:25.000Z 2574-91-98W32:46:26.000Z BP Sitting (Pre-Dialysis) 94/57 mmHg BP Sitting (Post-Dialysis) 119/46 mmHg Concurrent Access: falseAV Fistula Upper Arm (Right) Arterial Sitting Heart Rate Pre-Dialysis 85 BPM Sitting H eart Rate Post-Dialysis 90 BPM Temperature Pre-Dialysis 97.8 degF Temperature Post -Dialysis 97.7 degF July 16, 2023 In-Center Hemodialysis Treatment 9240-07-08J27:18:25.000Z 4316-40-30I47:53:26.000Z BP Sitting (Pre-Dialysis) 140/44 mmHg BP Sitting (Post-Dialysis) 128/41 mmHg Concurrent Access: falseAV Fistula Upper Arm (Right) Arterial BP Standing (Pre-Dialysis) 155/51 mmHg BP Standing (P ost-Dialysis) 118/40 mmHg Sitting Heart Rate Pre-Dialysis 81 BPM Sitting Heart Rate Post-Dialysis 86 BPM Standing Heart Rate Pre-Dialysis 82 BPM Standing Heart Rate Post-Dialysis 88 BPM Temperature Pre-Dialysis 97.8 degF Temperature Post -Dialysis 97.3 degF July 14, 2023 In-Center Hemodialysis Treatment [id number]:16:40.000Z 1043-61-48S64:49:41.000Z BP Sitting (Pre-Dialysis) 113/38 mmHg BP Sitting (Post-Dialysis) 119/53 mmHg Concurrent Access: falseAV Fistula Upper Arm (Right) Arterial Sitting Heart Rate Pre-Dialysis 83 BPM BP Standing (Post-Dialysis) 108/40 mmHg Temperature Pre-Dialysis 97.8 degF Sitting Heart Ra te Post-Dialysis 76 BPM Standing Heart Rate Post-Gladis lysis 78 BPM Temperature Post-Dialysis 97 .2 degF July 11, 2023 In-Center Hemodialysis Treatment 1856-85-01T82:15:34.000Z 3448-47-66M38:43:33.000Z BP Sitting (Pre-Dialysis) 122/54 mmHg BP Sitting (Post-Dialysis) 115/48 mmHg Concurrent Access: falseAV Fistula Upper Arm (Right) Arterial Sitting Heart Rate Pre-Dialysis 94 BPM Sitting H eart Rate Post-Dialysis 90 BPM Temperature Pre-Dialysis 97.8 degF Temperature Post -Dialysis 97.3 degF July 09, 2023 In-Center Hemodialysis Treatment 2333-56-92O61:13:32.000Z 9844-66-99W48:45:33.000Z BP Sitting (Pre-Dialysis) 148/53 mmHg BP Sitting (Post-Dialysis) 98/46 mmHg Concurrent Access: falseAV Fistula Upper Arm (Right) Arterial Sitting Heart Rate Pre-Dialysis 86 BPM BP Standing (Post-Dialysis) 105/41 mmHg Temperature Pre-Dialysis 97.8 degF Sitting Heart Ra te Post-Dialysis 88 BPM Standing Heart Rate Post-Gladis lysis 89 BPM Temperature Post-Dialysis 97 .1 degF July 08, 2023 In-Center Hemodialysis Treatment 3206-34-17C56:12:34.000Z 0569-61-21S62:33:33.000Z BP Sitting (Pre-Dialysis) 138/89 mmHg BP Sitting (Post-Dialysis) 108/43 mmHg Concurrent Access: falseAV Fistula Upper Arm (Right) Arterial BP Standing (Pre-Dialysis) 168/74 mmHg BP Standing (P ost-Dialysis) 92/57 mmHg Sitting Heart Rate Pre-Dialysis 99 BPM Sitting Heart Rate Post-Dialysis 81 BPM Standing Heart Rate Pre-Dialysis 76 BPM Standing Heart Rate Post-Dialysis 111 BPM Temperature Pre-Dialysis 97.8 degF Temperature Post -Dialysis 97.5 degF July 04, 2023 In-Center Hemodialysis Treatment 9067-55-92N69:17:59.000Z 7873-19-45O56:50:59.000Z BP Sitting (Pre-Dialysis) 158/62 mmHg BP Sitting (Post-Dialysis) 104/39 mmHg Concurrent Access: falseAV Fistula Upper Arm (Right) Arterial Sitting Heart Rate Pre-Dialysis 64 BPM BP Standi ng (Post-Dialysis) 93/45 mmHg Temperature Pre-Dialysis 97.8 degF Sitting Heart Ra te Post-Dialysis 93 BPM Standing Heart Rate Post-Gladis lysis 88 BPM Temperature Post-Dialysis 97 .2 degF July 02, 2023 In-Center Hemodialysis Treatment 3342-80-70J80:20:32.000Z 3388-21-86C96:32:32.000Z BP Sitting (Pre-Dialysis) 161/70 mmHg BP Sitting (Post-Dialysis) 102/53 mmHg Concurrent Access: falseAV Fistula Upper Arm (Right) Arterial Sitting Heart Rate Pre-Dialysis 91 BPM Sitting H eart Rate Post-Dialysis 93 BPM Temperature Pre-Dialysis 97.8 degF Temperature Post -Dialysis 97.8 degF June 27, 2023 In-Center Hemodialysis Treatment 8906-00-06P42:22:00.000Z 5012-32-65F19:51:18.000Z BP Sitting (Pre-Dialysis) 141/37 mmHg BP Sitting (Post-Dialysis) 115/75 mmHg Concurrent Access: falseAV Fistula Upper Arm (Right) Arterial BP Standing (Pre-Dialysis) 134/33 mmHg BP Standing (P ost-Dialysis) 125/48 mmHg Sitting Heart Rate Pre-Dialysis 101 BPM Sitting Heart Rate Post-Dialysis 84 BPM Standing Heart Rate Pre-Dialysis 109 BPM Standing Heart Rate Post-Dialysis 99 BPM Temperature Pre-Dialysis 97.9 degF Temperature Post -Dialysis 97.5 degF June 25, 2023 In-Center Hemodialysis Treatment 4350-77-82U94:18:18.000Z 2358-55-26B16:50:18.000Z BP Sitting (Pre-Dialysis) 143/52 mmHg BP Sitting (Post-Dialysis) 112/48 mmHg Concurrent Access: falseAV Fistula Upper Arm (Right) Arterial Sitting Heart Rate Pre-Dialysis 95 BPM BP Standing (Post-Dialysis) 137/40 mmHg Temperature Pre-Dialysis 97.8 degF Sitting Heart Ra te Post-Dialysis 78 BPM Standing Heart Rate Post-Gladis lysis 81 BPM Temperature Post-Dialysis 97 .2 degF June 20, 2023 In-Center Hemodialysis Treatment 7923-56-43B73:20:00.000Z 3510-77-87F89:55:38.000Z BP Sitting (Pre-Dialysis) 141/59 mmHg BP Sitting (Post-Dialysis) 162/98 mmHg Concurrent Access: falseAV Fistula Upper Arm (Right) Arterial Sitting Heart Rate Pre-Dialysis 93 BPM Sitting H eart Rate Post-Dialysis 77 BPM Temperature Pre-Dialysis 97.9 degF Temperature Post -Dialysis 97.9 degF June 18, 2023 In-Center Hemodialysis Treatment [id number]:16:38.000Z [id number]:46:38.000Z BP Sitting (Pre-Dialysis) 130/57 mmHg BP Sitting (Post-Dialysis) 106/44 mmHg Concurrent Access: falseAV Fistula Upper Arm (Right) Arterial BP Standing (Pre-Dialysis) 155/47 mmHg Sitti ng Heart Rate Post-Dialysis 85 BPM Sitting Heart Rate Pre-Dialysis 95 BPM Temperatu re Post-Dialysis 97.3 degF Standing Heart Rate Pre-Dialysis 93 BPM Temperature Pre-Dialysis 97.8 degF June 16, 2023 In-Center Hemodialysis Treatment [id number]:19:38.000Z [id number]:55:38.000Z BP Sitting (Pre-Dialysis) 128/40 mmHg BP Sitting (Post-Dialysis) 103/51 mmHg Concurrent Access: falseAV Fistula Upper Arm (Right) Arterial Sitting Heart Rate Pre-Dialysis 90 BPM BP Standing (Post-Dialysis) 111/54 mmHg Temperature Pre-Dialysis 97.8 degF Sitting Heart Ra te Post-Dialysis 87 BPM Standing Heart Rate Post-Gladis lysis 86 BPM Temperature Post-Dialysis 97 .7 degF June 13, 2023 In-Center Hemodialysis Treatment 1520-65-12N43:12:00.000Z 1667-90-53U72:32:15.000Z BP Sitting (Pre-Dialysis) 129/66 mmHg BP Sitting (Post-Dialysis) 122/51 mmHg Concurrent Access: falseAV Fistula Upper Arm (Right) Arterial BP Standing (Pre-Dialysis) 122/51 mmHg Sitti ng Heart Rate Post-Dialysis 92 BPM Sitting Heart Rate Pre-Dialysis 98 BPM Temperatu re Post-Dialysis 97.8 degF Standing Heart Rate Pre-Dialysis 92 BPM Temperature Pre-Dialysis 97.9 degF June 11, 2023 In-Center Hemodialysis Treatment [id number]:17:00.000Z 9334-87-25L57:38:32.000Z BP Sitting (Pre-Dialysis) 129/52 mmHg BP Sitting (Post-Dialysis) 97/43 mmHg Concurrent Access: falseAV Fistula Upper Arm (Right) Arterial BP Standing (Pre-Dialysis) 178/53 mmHg Sitti ng Heart Rate Post-Dialysis 100 BPM Sitting Heart Rate Pre-Dialysis 76 BPM Temperatu re Post-Dialysis 97.2 degF Standing Heart Rate Pre-Dialysis 83 BPM Temperature Pre-Dialysis 97.9 degF June 08, 2023 In-Center Hemodialysis Treatment [id number]:17:00.000Z 0573-01-07Q68:31:59.000Z BP Sitting (Pre-Dialysis) 151/61 mmHg BP Sitting (Post-Dialysis) 99/44 mmHg Concurrent Access: falseAV Fistula Upper Arm (Right) Arterial Sitting Heart Rate Pre-Dialysis 109 BPM Sitting H eart Rate Post-Dialysis 102 BPM Temperature Pre-Dialysis 97.3 degF Temperature Post -Dialysis 97.8 degF June 06, 2023 In-Center Hemodialysis Treatment 1032-09-11V47:15:00.000Z 3664-86-58E77:24:09.000Z BP Sitting (Pre-Dialysis) 145/55 mmHg BP Sitting (Post-Dialysis) 90/47 mmHg Concurrent Access: falseAV Fistula Upper Arm (Right) Arterial BP Standing (Pre-Dialysis) 132/68 mmHg BP Standing (P ost-Dialysis) 100/34 mmHg Sitting Heart Rate Pre-Dialysis 87 BPM Sitting Heart Rate Post-Dialysis 60 BPM Standing Heart Rate Pre-Dialysis 71 BPM Standing Heart Rate Post-Dialysis 94 BPM Temperature Pre-Dialysis 97.7 degF Temperature Post -Dialysis 97.3 degF June 04, 2023 In-Center Hemodialysis Treatment [id number]:17:21.000Z 6839-95-56Q61:33:21.000Z BP Sitting (Pre-Dialysis) 127/39 mmHg BP Sitting (Post-Dialysis) 93/45 mmHg Concurrent Access: falseAV Fistula Upper Arm (Right) Arterial BP Standing (Pre-Dialysis) 139/61 mmHg BP Standing (P ost-Dialysis) 120/43 mmHg Sitting Heart Rate Pre-Dialysis 93 BPM Sitting Heart Rate Post-Dialysis 88 BPM Standing Heart Rate Pre-Dialysis 82 BPM Standing Heart Rate Post-Dialysis 90 BPM Temperature Pre-Dialysis 97.3 degF Temperature Post -Dialysis 97.5 degF June 01, 2023 In-Center Hemodialysis Treatment [id number]:16:09.000Z 6950-94-74A66:07:30.000Z BP Sitting (Pre-Dialysis) 149/52 mmHg BP Sitting (Post-Dialysis) 99/40 mmHg Concurrent Access: falseAV Fistula Upper Arm (Right) Arterial Sitting Heart Rate Pre-Dialysis 92 BPM BP Standi ng (Post-Dialysis) 93/42 mmHg Temperature Pre-Dialysis 97.8 degF Sitting Heart Ra te Post-Dialysis 92 BPM Standing Heart Rate Post-Gladis lysis 93 BPM Temperature Post-Dialysis 97 .2 degF May 30, 2023 In-Center Hemodialysis Treatment 1521-52-28Y42:18:04.000Z 0012-96-28N46:37:04.000Z BP Sitting (Pre-Dialysis) 144/47 mmHg BP Sitting (Post-Dialysis) 122/43 mmHg Concurrent Access: falseAV Fistula Upper Arm (Right) Arterial Sitting Heart Rate Pre-Dialysis 93 BPM Sitting H eart Rate Post-Dialysis 104 BPM Temperature Pre-Dialysis 97.8 degF Temperature Post -Dialysis 97.8 degF May 28, 2023 In-Center Hemodialysis Treatment [id number]:17:52.000Z 4865-96-44Q23:39:53.000Z BP Sitting (Pre-Dialysis) 118/53 mmHg BP Sitting (Post-Dialysis) 92/59 mmHg Concurrent Access: falseAV Fistula Upper Arm (Right) Arterial Sitting Heart Rate Pre-Dialysis 96 BPM BP Standing (Post-Dialysis) 111/59 mmHg Temperature Pre-Dialysis 97.8 degF Sitting Heart Ra te Post-Dialysis 95 BPM Standing Heart Rate Post-Gladis lysis 95 BPM Temperature Post-Dialysis 97 .5 degF May 26, 2023 In-Center Hemodialysis Treatment 5197-10-05N94:04:00.000Z 5222-45-08F15:19:53.000Z BP Sitting (Pre-Dialysis) 162/104 mmHg BP Sitting (Post-Dialysis) 105/69 mmHg Concurrent Access: falseAV Fistula Upper Arm (Right) Arterial BP Standing (Pre-Dialysis) 103/60 mmHg BP Standing (P ost-Dialysis) 129/54 mmHg Sitting Heart Rate Pre-Dialysis 72 BPM Sitting Heart Rate Post-Dialysis 59 BPM Standing Heart Rate Pre-Dialysis 78 BPM Standing Heart Rate Post-Dialysis 75 BPM Temperature Pre-Dialysis 97.8 degF Temperature Post -Dialysis 97.3 degF May 23, 2023 In-Center Hemodialysis Treatment [id number]:22:19.000Z 6666-22-91M54:42:20.000Z BP Sitting (Pre-Dialysis) 127/48 mmHg BP Sitting (Post-Dialysis) 147/78 mmHg Concurrent Access: falseAV Fistula Upper Arm (Right) Arterial BP Standing (Pre-Dialysis) 160/102 mmHg BP Standing (P ost-Dialysis) 122/88 mmHg Sitting Heart Rate Pre-Dialysis 88 BPM Sitting Heart Rate Post-Dialysis 77 BPM Standing Heart Rate Pre-Dialysis 68 BPM Standing Heart Rate Post-Dialysis 67 BPM Temperature Pre-Dialysis 97.8 degF Temperature Post -Dialysis 97.6 degF May 21, 2023 In-Center Hemodialysis Treatment [id number]:21:00.000Z 1282-28-22Z09:31:20.000Z BP Sitting (Pre-Dialysis) 130/64 mmHg BP Sitting (Post-Dialysis) 98/49 mmHg Concurrent Access: falseAV Fistula Upper Arm (Right) Arterial BP Standing (Pre-Dialysis) 145/67 mmHg BP Standing (P ost-Dialysis) 127/60 mmHg Sitting Heart Rate Pre-Dialysis 81 BPM Sitting Heart Rate Post-Dialysis 77 BPM Standing Heart Rate Pre-Dialysis 89 BPM Standing Heart Rate Post-Dialysis 104 BPM Temperature Pre-Dialysis 97.8 degF Temperature Post -Dialysis 97.2 degF May 19, 2023 In-Center Hemodialysis Treatment 0918-10-01W16:17:19.000Z 1604-27-98D81:30:47.000Z BP Sitting (Pre-Dialysis) 116/55 mmHg BP Sitting (Post-Dialysis) 110/44 mmHg Concurrent Access: falseAV Fistula Upper Arm (Right) Arterial Sitting Heart Rate Pre-Dialysis 83 BPM BP Standing (Post-Dialysis) 104/40 mmHg Temperature Pre-Dialysis 97.8 degF Sitting Heart Ra te Post-Dialysis 89 BPM Standing Heart Rate Post-Gladis lysis 88 BPM Temperature Post-Dialysis 97 .8 degF May 16, 2023 In-Center Hemodialysis Treatment [id number]:19:00.000Z 0879-23-50U14:32:34.000Z BP Sitting (Pre-Dialysis) 102/68 mmHg BP Sitting (Post-Dialysis) 139/46 mmHg Concurrent Access: falseAV Fistula Upper Arm (Right) Arterial BP Standing (Pre-Dialysis) 101/65 mmHg Sitti ng Heart Rate Post-Dialysis 78 BPM Sitting Heart Rate Pre-Dialysis 87 BPM Temperatu re Post-Dialysis 97.9 degF Standing Heart Rate Pre-Dialysis 85 BPM Temperature Pre-Dialysis 97.9 degF May 14, 2023 In-Center Hemodialysis Treatment [id number]:19:29.000Z 8017-42-48W49:36:30.000Z BP Sitting (Pre-Dialysis) 158/56 mmHg BP Sitting (Post-Dialysis) 113/53 mmHg Concurrent Access: falseAV Fistula Upper Arm (Right) Arterial Sitting Heart Rate Pre-Dialysis 82 BPM BP Standing (Post-Dialysis) 119/51 mmHg Temperature Pre-Dialysis 97.8 degF Sitting Heart Ra te Post-Dialysis 86 BPM Standing Heart Rate Post-Gladis lysis 89 BPM Temperature Post-Dialysis 97 .5 degF May 12, 2023 In-Center Hemodialysis Treatment 0282-19-89R53:17:29.000Z 7929-48-12W71:24:30.000Z BP Sitting (Pre-Dialysis) 128/50 mmHg BP Sitting (Post-Dialysis) 100/43 mmHg Concurrent Access: falseAV Fistula Upper Arm (Right) Arterial Sitting Heart Rate Pre-Dialysis 85 BPM BP Standing (Post-Dialysis) 131/39 mmHg Temperature Pre-Dialysis 97.8 degF Sitting Heart Ra te Post-Dialysis 88 BPM Standing Heart Rate Post-Gladis lysis 85 BPM Temperature Post-Dialysis 97 .5 degF May 09, 2023 In-Center Hemodialysis Treatment [id number]:18:11.000Z 0389-26-39E78:31:11.000Z BP Sitting (Pre-Dialysis) 116/40 mmHg BP Sitting (Post-Dialysis) 124/46 mmHg Concurrent Access: falseAV Fistula Upper Arm (Right) Arterial Sitting Heart Rate Pre-Dialysis 87 BPM Sitting H eart Rate Post-Dialysis 86 BPM Temperature Pre-Dialysis 97.7 degF Temperature Post -Dialysis 97 degF May 02, 2023 In-Center Hemodialysis Treatment 2693-10-64Q77:18:18.000Z 5176-85-47K48:38:18.000Z BP Sitting (Pre-Dialysis) 157/71 mmHg BP Sitting (Post-Dialysis) 101/46 mmHg Concurrent Access: falseAV Fistula Upper Arm (Right) Arterial Sitting Heart Rate Pre-Dialysis 87 BPM Sitting H eart Rate Post-Dialysis 88 BPM Temperature Pre-Dialysis 97.8 degF Temperature Post -Dialysis 97.8 degF April 29, 2023 In-Center Hemodialysis Treatment 6637-11-72V46:17:10.000Z 8701-10-02O79:32:10.000Z BP Sitting (Pre-Dialysis) 133/51 mmHg BP Sitting (Post-Dialysis) 98/50 mmHg Concurrent Access: falseAV Fistula Upper Arm (Right) Arterial Sitting Heart Rate Pre-Dialysis 94 BPM BP Standing (Post-Dialysis) 110/55 mmHg Temperature Pre-Dialysis 97.8 degF Sitting Heart Ra te Post-Dialysis 88 BPM Standing Heart Rate Post-Gladis lysis 85 BPM Temperature Post-Dialysis 97 .8 degF April 27, 2023 In-Center Hemodialysis Treatment 2032-21-81M53:15:00.000Z 6491-41-82B54:23:18.000Z BP Sitting (Pre-Dialysis) 152/75 mmHg BP Sitting (Post-Dialysis) 106/51 mmHg Concurrent Access: falseAV Fistula Upper Arm (Right) Arterial BP Standing (Pre-Dialysis) 114/53 mmHg BP Standing (P ost-Dialysis) 109/55 mmHg Sitting Heart Rate Pre-Dialysis 96 BPM Sitting Heart Rate Post-Dialysis 84 BPM Standing Heart Rate Pre-Dialysis 87 BPM Standing Heart Rate Post-Dialysis 86 BPM Temperature Pre-Dialysis 97.8 degF Temperature Post -Dialysis 97.3 degF April 25, 2023 In-Center Hemodialysis Treatment 6989-84-20F95:17:27.000Z 1673-49-01S46:33:27.000Z BP Sitting (Pre-Dialysis) 119/42 mmHg BP Sitting (Post-Dialysis) 126/48 mmHg Concurrent Access: falseAV Fistula Upper Arm (Right) Arterial BP Standing (Pre-Dialysis) 138/63 mmHg BP Standing (P ost-Dialysis) 121/49 mmHg Sitting Heart Rate Pre-Dialysis 83 BPM Sitting Heart Rate Post-Dialysis 88 BPM Standing Heart Rate Pre-Dialysis 88 BPM Standing Heart Rate Post-Dialysis 88 BPM Temperature Pre-Dialysis 97.5 degF Temperature Post -Dialysis 97.8 degF April 23, 2023 In-Center Hemodialysis Treatment 0663-06-52I02:16:07.000Z 8696-25-26T13:12:00.000Z BP Sitting (Pre-Dialysis) 132/43 mmHg BP Sitting (Post-Dialysis) 107/78 mmHg Concurrent Access: falseAV Fistula Upper Arm (Right) Arterial Sitting Heart Rate Pre-Dialysis 86 BPM Sitting H eart Rate Post-Dialysis 65 BPM Temperature Pre-Dialysis 97.8 degF Temperature Post -Dialysis 97 degF April 21, 2023 In-Center Hemodialysis Treatment [id number]:19:07.000Z 2196-09-25E32:28:07.000Z BP Sitting (Pre-Dialysis) 142/45 mmHg BP Sitting (Post-Dialysis) 107/48 mmHg Concurrent Access: falseAV Fistula Upper Arm (Right) Arterial Sitting Heart Rate Pre-Dialysis 85 BPM BP Standing (Post-Dialysis) 110/49 mmHg Temperature Pre-Dialysis 97.8 degF Sitting Heart Ra te Post-Dialysis 82 BPM Standing Heart Rate Post-Gladis lysis 79 BPM Temperature Post-Dialysis 97 .3 degF April 18, 2023 In-Center Hemodialysis Treatment 8215-97-31I45:16:00.000Z 4590-36-14P27:01:12.000Z BP Sitting (Pre-Dialysis) 116/44 mmHg BP Sitting (Post-Dialysis) 112/46 mmHg Concurrent Access: falseAV Fistula Upper Arm (Right) Arterial BP Standing (Pre-Dialysis) 148/51 mmHg Sitti ng Heart Rate Post-Dialysis 89 BPM Sitting Heart Rate Pre-Dialysis 85 BPM Temperatu re Post-Dialysis 97.3 degF Standing Heart Rate Pre-Dialysis 90 BPM Temperature Pre-Dialysis 97.8 degF April 16, 2023 In-Center Hemodialysis Treatment 9122-75-76X17:18:36.000Z 1300-92-20Y43:52:36.000Z BP Sitting (Pre-Dialysis) 112/49 mmHg BP Sitting (Post-Dialysis) 141/50 mmHg Concurrent Access: falseAV Fistula Upper Arm (Right) Arterial BP Standing (Pre-Dialysis) 140/54 mmHg Sitti ng Heart Rate Post-Dialysis 77 BPM Sitting Heart Rate Pre-Dialysis 78 BPM Temperatu re Post-Dialysis 97.1 degF Standing Heart Rate Pre-Dialysis 77 BPM Temperature Pre-Dialysis 97.6 degF April 14, 2023 In-Center Hemodialysis Treatment 4512-31-40H23:16:12.000Z 8449-95-25X71:06:12.000Z BP Sitting (Pre-Dialysis) 129/55 mmHg BP Sitting (Post-Dialysis) 106/39 mmHg Concurrent Access: falseAV Fistula Upper Arm (Right) Arterial Sitting Heart Rate Pre-Dialysis 86 BPM BP Standing (Post-Dialysis) 117/43 mmHg Temperature Pre-Dialysis 97.9 degF Sitting Heart Ra te Post-Dialysis 87 BPM Standing Heart Rate Post-Gladis lysis 90 BPM Temperature Post-Dialysis 97 .3 degF April 11, 2023 In-Center Hemodialysis Treatment 9399-41-95L68:18:00.000Z 9195-62-51O25:38:19.000Z BP Sitting (Pre-Dialysis) 130/50 mmHg BP Sitting (Post-Dialysis) 113/48 mmHg Concurrent Access: falseAV Fistula Upper Arm (Right) Arterial BP Standing (Pre-Dialysis) 132/64 mmHg BP Standing (P ost-Dialysis) 111/48 mmHg Sitting Heart Rate Pre-Dialysis 91 BPM Sitting Heart Rate Post-Dialysis 86 BPM Standing Heart Rate Pre-Dialysis 92 BPM Standing Heart Rate Post-Dialysis 96 BPM Temperature Pre-Dialysis 97.9 degF Temperature Post -Dialysis 97 degF April 09, 2023 In-Center Hemodialysis Treatment 8131-03-38C61:19:27.000Z 6317-94-68V59:35:27.000Z BP Sitting (Pre-Dialysis) 89/48 mmHg BP Sitting (Post-Dialysis) 110/63 mmHg Concurrent Access: falseAV Fistula Upper Arm (Right) Arterial Sitting Heart Rate Pre-Dialysis 77 BPM Sitting H eart Rate Post-Dialysis 80 BPM Temperature Pre-Dialysis 97.8 degF Temperature Post -Dialysis 97.8 degF April 07, 2023 In-Center Hemodialysis Treatment 9016-29-58S32:14:19.000Z 8043-23-35F90:31:19.000Z BP Sitting (Pre-Dialysis) 120/74 mmHg BP Sitting (Post-Dialysis) 91/39 mmHg Concurrent Access: falseAV Fistula Upper Arm (Right) Arterial BP Standing (Pre-Dialysis) 155/64 mmHg BP Standing (P ost-Dialysis) 90/39 mmHg Sitting Heart Rate Pre-Dialysis 71 BPM Sitting Heart Rate Post-Dialysis 87 BPM Standing Heart Rate Pre-Dialysis 93 BPM Standing Heart Rate Post-Dialysis 88 BPM Temperature Pre-Dialysis 97.9 degF Temperature Post -Dialysis 97.3 degF April 04, 2023 In-Center Hemodialysis Treatment 3596-72-60Z66:18:14.000Z 0879-53-43Q44:38:14.000Z BP Sitting (Pre-Dialysis) 120/26 mmHg BP Sitting (Post-Dialysis) 136/31 mmHg Concurrent Access: falseAV Fistula Upper Arm (Right) Arterial Sitting Heart Rate Pre-Dialysis 87 BPM Sitting H eart Rate Post-Dialysis 82 BPM Temperature Pre-Dialysis 97.8 degF Temperature Post -Dialysis 97.8 degF April 02, 2023 In-Center Hemodialysis Treatment 8728-36-56Z82:15:29.000Z 2886-57-15J53:28:29.000Z BP Sitting (Pre-Dialysis) 128/70 mmHg BP Sitting (Post-Dialysis) 101/26 mmHg Concurrent Access: falseAV Fistula Upper Arm (Right) Arterial Sitting Heart Rate Pre-Dialysis 87 BPM BP Standi ng (Post-Dialysis) 98/40 mmHg Temperature Pre-Dialysis 97.9 degF Sitting Heart Ra te Post-Dialysis 94 BPM Standing Heart Rate Post-Gladis lysis 90 BPM Temperature Post-Dialysis 98 degF March 31, 2023 In-Center Hemodialysis Treatment 3919-73-12C73:46:00.000Z 3492-26-72M62:34:09.000Z BP Sitting (Pre-Dialysis) 144/61 mmHg BP Sitting (Post-Dialysis) 110/45 mmHg Concurrent Access: falseAV Fistula Upper Arm (Right) Arterial Sitting Heart Rate Pre-Dialysis 84 BPM BP Standing (Post-Dialysis) 108/43 mmHg Temperature Pre-Dialysis 97.8 degF Sitting Heart Ra te Post-Dialysis 93 BPM Standing Heart Rate Post-Gladis lysis 91 BPM Temperature Post-Dialysis 97 .7 degF March 28, 2023 In-Center Hemodialysis Treatment [id number]:21:20.000Z 8354-08-96W50:33:20.000Z BP Sitting (Pre-Dialysis) 142/32 mmHg BP Sitting (Post-Dialysis) 102/53 mmHg Concurrent Access: falseAV Fistula Upper Arm (Right) Arterial Sitting Heart Rate Pre-Dialysis 88 BPM Sitting H eart Rate Post-Dialysis 91 BPM Temperature Pre-Dialysis 97.8 degF Temperature Post -Dialysis 97.8 degF March 26, 2023 In-Center Hemodialysis Treatment 4228-57-69S96:19:45.000Z 5841-66-15Y93:27:45.000Z BP Sitting (Pre-Dialysis) 139/63 mmHg BP Sitting (Post-Dialysis) 108/59 mmHg Concurrent Access: falseAV Fistula Upper Arm (Right) Arterial BP Standing (Pre-Dialysis) 159/43 mmHg BP Standing (P ost-Dialysis) 101/62 mmHg Sitting Heart Rate Pre-Dialysis 95 BPM Sitting Heart Rate Post-Dialysis 86 BPM Standing Heart Rate Pre-Dialysis 95 BPM Standing Heart Rate Post-Dialysis 90 BPM Temperature Pre-Dialysis 97.8 degF Temperature Post -Dialysis 97.6 degF March 24, 2023 In-Center Hemodialysis Treatment 5112-40-97K66:18:46.000Z 0545-11-83T63:29:45.000Z BP Sitting (Pre-Dialysis) 128/58 mmHg BP Sitting (Post-Dialysis) 99/38 mmHg Concurrent Access: falseAV Fistula Upper Arm (Right) Arterial Sitting Heart Rate Pre-Dialysis 86 BPM Sitting H eart Rate Post-Dialysis 85 BPM Temperature Pre-Dialysis 97.8 degF Temperature Post -Dialysis 97.6 degF March 21, 2023 In-Center Hemodialysis Treatment 0660-05-74Y29:13:33.000Z 4996-04-39C33:30:34.000Z BP Sitting (Pre-Dialysis) 127/47 mmHg BP Sitting (Post-Dialysis) 132/60 mmHg Concurrent Access: falseAV Fistula Upper Arm (Right) Arterial Sitting Heart Rate Pre-Dialysis 86 BPM BP Standing (Post-Dialysis) 109/57 mmHg Temperature Pre-Dialysis 97.8 degF Sitting Heart Ra te Post-Dialysis 98 BPM Standing Heart Rate Post-Gladis lysis 77 BPM Temperature Post-Dialysis 97 .8 degF March 19, 2023 In-Center Hemodialysis Treatment [id number]:15:00.000Z 9362-54-07R20:03:34.000Z BP Sitting (Pre-Dialysis) 142/45 mmHg BP Sitting (Post-Dialysis) 122/38 mmHg Concurrent Access: falseAV Fistula Upper Arm (Right) Arterial Sitting Heart Rate Pre-Dialysis 87 BPM BP Standing (Post-Dialysis) 118/52 mmHg Temperature Pre-Dialysis 97.9 degF Sitting Heart Ra te Post-Dialysis 95 BPM Standing Heart Rate Post-Gladis lysis 88 BPM Temperature Post-Dialysis 97 .3 degF March 17, 2023 In-Center Hemodialysis Treatment [id number]:20:00.000Z 4571-00-78M09:38:27.000Z BP Sitting (Pre-Dialysis) 128/44 mmHg BP Sitting (Post-Dialysis) 115/38 mmHg Concurrent Access: falseAV Fistula Upper Arm (Right) Arterial Sitting Heart Rate Pre-Dialysis 90 BPM BP Standing (Post-Dialysis) 116/55 mmHg Temperature Pre-Dialysis 97.9 degF Sitting Heart Ra te Post-Dialysis 70 BPM Standing Heart Rate Post-Gladis lysis 70 BPM Temperature Post-Dialysis 97 .8 degF March 14, 2023 In-Center Hemodialysis Treatment 8833-23-71P49:17:00.000Z 7379-32-46V26:30:12.000Z BP Sitting (Pre-Dialysis) 108/49 mmHg BP Sitting (Post-Dialysis) 112/60 mmHg Concurrent Access: falseAV Fistula Upper Arm (Right) Arterial Sitting Heart Rate Pre-Dialysis 83 BPM BP Standing (Post-Dialysis) 141/51 mmHg Temperature Pre-Dialysis 97.8 degF Sitting Heart Ra te Post-Dialysis 92 BPM Standing Heart Rate Post-Gladis lysis 91 BPM Temperature Post-Dialysis 97 .3 degF March 12, 2023 In-Center Hemodialysis Treatment 5377-11-57N31:21:12.000Z 3952-70-30P37:28:12.000Z BP Sitting (Pre-Dialysis) 120/61 mmHg BP Sitting (Post-Dialysis) 88/43 mmHg Concurrent Access: falseAV Fistula Upper Arm (Right) Arterial Sitting Heart Rate Pre-Dialysis 89 BPM BP Standing (Post-Dialysis) 111/52 mmHg Temperature Pre-Dialysis 97.6 degF Sitting Heart Ra te Post-Dialysis 87 BPM Standing Heart Rate Post-Gladis lysis 92 BPM Temperature Post-Dialysis 97 .8 degF March 10, 2023 In-Center Hemodialysis Treatment 6973-91-99S64:16:00.000Z 2995-21-01X23:25:12.000Z BP Sitting (Pre-Dialysis) 147/52 mmHg BP Sitting (Post-Dialysis) 140/57 mmHg Concurrent Access: falseAV Fistula Upper Arm (Right) Arterial BP Standing (Pre-Dialysis) 147/50 mmHg BP Standing (P ost-Dialysis) 144/39 mmHg Sitting Heart Rate Pre-Dialysis 85 BPM Sitting Heart Rate Post-Dialysis 98 BPM Standing Heart Rate Pre-Dialysis 85 BPM Standing Heart Rate Post-Dialysis 97 BPM Temperature Pre-Dialysis 97.6 degF Temperature Post -Dialysis 97.3 degF March 07, 2023 In-Center Hemodialysis Treatment 8118-91-61J63:17:00.000Z 5846-58-09Y87:30:42.000Z BP Sitting (Pre-Dialysis) 125/52 mmHg BP Sitting (Post-Dialysis) 121/42 mmHg Concurrent Access: falseAV Fistula Upper Arm (Right) Arterial Sitting Heart Rate Pre-Dialysis 83 BPM BP Standing (Post-Dialysis) 107/44 mmHg Temperature Pre-Dialysis 97.9 degF Sitting Heart Ra te Post-Dialysis 98 BPM Standing Heart Rate Post-Gladis lysis 100 BPM Temperature Post-Dialysis 97 .5 degF March 05, 2023 In-Center Hemodialysis Treatment 5013-03-15K80:17:00.000Z 3808-00-72M73:13:33.000Z BP Sitting (Pre-Dialysis) 121/67 mmHg BP Sitting (Post-Dialysis) 141/59 mmHg Concurrent Access: falseAV Fistula Upper Arm (Right) Arterial BP Standing (Pre-Dialysis) 146/64 mmHg BP Standing (P ost-Dialysis) 120/35 mmHg Sitting Heart Rate Pre-Dialysis 93 BPM Sitting Heart Rate Post-Dialysis 100 BPM Standing Heart Rate Pre-Dialysis 94 BPM Standing Heart Rate Post-Dialysis 103 BPM Temperature Pre-Dialysis 97.4 degF Temperature Post -Dialysis 97.4 degF March 03, 2023 In-Center Hemodialysis Treatment 6849-09-83R44:18:42.000Z 4615-19-33Z48:29:42.000Z BP Sitting (Pre-Dialysis) 141/45 mmHg BP Sitting (Post-Dialysis) 114/67 mmHg Concurrent Access: falseAV Fistula Upper Arm (Right) Arterial Sitting Heart Rate Pre-Dialysis 83 BPM BP Standing (Post-Dialysis) 112/88 mmHg Temperature Pre-Dialysis 97.4 degF Sitting Heart Ra te Post-Dialysis 85 BPM Standing Heart Rate Post-Gladis lysis 74 BPM Temperature Post-Dialysis 97 .2 degF February 28, 2023 In-Center Hemodialysis Treatment 1539-91-24R78:14:00.000Z 2040-66-05F32:23:28.000Z BP Sitting (Pre-Dialysis) 129/42 mmHg BP Sitting (Post-Dialysis) 115/47 mmHg Concurrent Access: falseAV Fistula Upper Arm (Right) Arterial Sitting Heart Rate Pre-Dialysis 83 BPM BP Standing (Post-Dialysis) 102/49 mmHg Temperature Pre-Dialysis 97.9 degF Sitting Heart Ra te Post-Dialysis 87 BPM Standing Heart Rate Post-Gladis lysis 80 BPM Temperature Post-Dialysis 97 .5 degF February 26, 2023 In-Center Hemodialysis Treatment [id number]:59:00.000Z 2670-50-14C22:47:28.000Z BP Sitting (Pre-Dialysis) 117/38 mmHg BP Sitting (Post-Dialysis) 104/32 mmHg Concurrent Access: falseAV Fistula Upper Arm (Right) Arterial Sitting Heart Rate Pre-Dialysis 86 BPM Sitting H eart Rate Post-Dialysis 81 BPM Temperature Pre-Dialysis 97 degF Temperature Post -Dialysis 98 degF February 24, 2023 In-Center Hemodialysis Treatment 1666-58-29N93:12:00.000Z 4223-34-04Q67:31:28.000Z BP Sitting (Pre-Dialysis) 135/62 mmHg BP Sitting (Post-Dialysis) 145/59 mmHg Concurrent Access: falseAV Fistula Upper Arm (Right) Arterial BP Standing (Pre-Dialysis) 134/62 mmHg BP Standing (P ost-Dialysis) 144/81 mmHg Sitting Heart Rate Pre-Dialysis 79 BPM Sitting Heart Rate Post-Dialysis 87 BPM Standing Heart Rate Pre-Dialysis 83 BPM Standing Heart Rate Post-Dialysis 83 BPM Temperature Pre-Dialysis 97 degF Temperature Post -Dialysis 97.2 degF February 21, 2023 In-Center Hemodialysis Treatment 5925-11-78U40:18:00.000Z 6301-97-21Z95:19:18.000Z BP Sitting (Pre-Dialysis) 123/59 mmHg BP Sitting (Post-Dialysis) 100/48 mmHg Concurrent Access: falseAV Fistula Upper Arm (Right) Arterial Sitting Heart Rate Pre-Dialysis 87 BPM BP Standing (Post-Dialysis) 101/44 mmHg Temperature Pre-Dialysis 97.9 degF Sitting Heart Ra te Post-Dialysis 79 BPM Standing Heart Rate Post-Gladis lysis 94 BPM Temperature Post-Dialysis 97 degF February 20, 2023 In-Center Hemodialysis Treatment 7166-07-68A64:06:19.000Z 4208-99-72J10:10:18.000Z BP Sitting (Pre-Dialysis) 101/45 mmHg BP Sitting (Post-Dialysis) 94/44 mmHg Concurrent Access: falseAV Fistula Upper Arm (Right) Arterial Sitting Heart Rate Pre-Dialysis 77 BPM BP Standi ng (Post-Dialysis) 93/43 mmHg Temperature Pre-Dialysis 97.2 degF Sitting Heart Ra te Post-Dialysis 84 BPM Standing Heart Rate Post-Gladis lysis 84 BPM Temperature Post-Dialysis 97 .6 degF February 17, 2023 In-Center Hemodialysis Treatment [id number]:17:00.000Z 6658-65-04Q40:30:18.000Z BP Sitting (Pre-Dialysis) 123/46 mmHg BP Sitting (Post-Dialysis) 117/46 mmHg Concurrent Access: falseAV Fistula Upper Arm (Right) Arterial BP Standing (Pre-Dialysis) 140/82 mmHg Sitti ng Heart Rate Post-Dialysis 92 BPM Sitting Heart Rate Pre-Dialysis 87 BPM Temperatu re Post-Dialysis 97.8 degF Standing Heart Rate Pre-Dialysis 91 BPM Temperature Pre-Dialysis 97.6 degF February 14, 2023 In-Center Hemodialysis Treatment 4474-03-03W42:15:00.000Z 3749-66-73P23:01:40.000Z BP Sitting (Pre-Dialysis) 157/45 mmHg BP Sitting (Post-Dialysis) 115/43 mmHg Concurrent Access: falseAV Fistula Upper Arm (Right) Arterial BP Standing (Pre-Dialysis) 155/123 mmHg BP Standing (P ost-Dialysis) 101/44 mmHg Sitting Heart Rate Pre-Dialysis 95 BPM Sitting Heart Rate Post-Dialysis 100 BPM Standing Heart Rate Pre-Dialysis 61 BPM Standing Heart Rate Post-Dialysis 99 BPM Temperature Pre-Dialysis 97.6 degF Temperature Post -Dialysis 97.8 degF February 12, 2023 In-Center Hemodialysis Treatment [id number]:14:00.000Z 7519-44-77C15:59:39.000Z BP Sitting (Pre-Dialysis) 151/48 mmHg BP Sitting (Post-Dialysis) 181/54 mmHg Concurrent Access: falseAV Fistula Upper Arm (Right) Arterial BP Standing (Pre-Dialysis) 131/46 mmHg BP Standing (P ost-Dialysis) 149/57 mmHg Sitting Heart Rate Pre-Dialysis 95 BPM Sitting Heart Rate Post-Dialysis 102 BPM Standing Heart Rate Pre-Dialysis 100 BPM Standing Heart Rate Post-Dialysis 102 BPM Temperature Pre-Dialysis 97.6 degF Temperature Post -Dialysis 97.8 degF February 10, 2023 In-Center Hemodialysis Treatment [id number]:13:00.000Z 5727-17-68R98:01:39.000Z BP Sitting (Pre-Dialysis) 144/60 mmHg BP Sitting (Post-Dialysis) 126/37 mmHg Concurrent Access: falseAV Fistula Upper Arm (Right) Arterial Sitting Heart Rate Pre-Dialysis 91 BPM Sitting H eart Rate Post-Dialysis 94 BPM Temperature Pre-Dialysis 97 degF Temperature Post -Dialysis 97.7 degF February 07, 2023 In-Center Hemodialysis Treatment [id number]:20:21.000Z 5547-18-80C90:05:22.000Z BP Sitting (Pre-Dialysis) 128/60 mmHg BP Sitting (Post-Dialysis) 105/51 mmHg Concurrent Access: falseAV Fistula Upper Arm (Right) Arterial BP Standing (Pre-Dialysis) 130/66 mmHg BP Standing (P ost-Dialysis) 110/50 mmHg Sitting Heart Rate Pre-Dialysis 83 BPM Sitting Heart Rate Post-Dialysis 100 BPM Standing Heart Rate Pre-Dialysis 81 BPM Standing Heart Rate Post-Dialysis 99 BPM Temperature Pre-Dialysis 97.6 degF Temperature Post -Dialysis 98 degF February 05, 2023 In-Center Hemodialysis Treatment [id number]:13:00.000Z 4107-27-76O27:37:22.000Z BP Sitting (Pre-Dialysis) 148/53 mmHg BP Sitting (Post-Dialysis) 129/52 mmHg Concurrent Access: falseAV Fistula Upper Arm (Right) Arterial Sitting Heart Rate Pre-Dialysis 87 BPM Sitting H eart Rate Post-Dialysis 100 BPM Temperature Pre-Dialysis 97.6 degF Temperature Post -Dialysis 97.6 degF February 03, 2023 In-Center Hemodialysis Treatment 9919-18-38J41:14:00.000Z 4552-85-62W87:10:05.000Z BP Sitting (Pre-Dialysis) 133/59 mmHg BP Sitting (Post-Dialysis) 115/71 mmHg Concurrent Access: falseAV Fistula Upper Arm (Right) Arterial BP Standing (Pre-Dialysis) 146/56 mmHg Sitti ng Heart Rate Post-Dialysis 104 BPM Sitting Heart Rate Pre-Dialysis 84 BPM Temperatu re Post-Dialysis 97.9 degF Standing Heart Rate Pre-Dialysis 88 BPM Temperature Pre-Dialysis 97.8 degF January 31, 2023 In-Center Hemodialysis Treatment 2300-99-22A52:41:00.000Z 2830-98-60V16:00:12.000Z BP Sitting (Pre-Dialysis) 151/94 mmHg BP Sitting (Post-Dialysis) 130/47 mmHg Concurrent Access: falseAV Fistula Upper Arm (Right) Arterial Sitting Heart Rate Pre-Dialysis 83 BPM Sitting H eart Rate Post-Dialysis 79 BPM Temperature Pre-Dialysis 97.4 degF Temperature Post -Dialysis 97.2 degF January 29, 2023 In-Center Hemodialysis Treatment [id number]:56:00.000Z 0037-81-97X10:30:12.000Z BP Sitting (Pre-Dialysis) 136/57 mmHg BP Sitting (Post-Dialysis) 129/54 mmHg Concurrent Access: falseAV Fistula Upper Arm (Right) Arterial BP Standing (Pre-Dialysis) 114/42 mmHg Sitti ng Heart Rate Post-Dialysis 93 BPM Sitting Heart Rate Pre-Dialysis 92 BPM Temperatu re Post-Dialysis 97.5 degF Standing Heart Rate Pre-Dialysis 86 BPM Temperature Pre-Dialysis 97.8 degF January 27, 2023 In-Center Hemodialysis Treatment 6194-95-04U47:39:00.000Z 7946-93-97U32:03:13.000Z BP Sitting (Pre-Dialysis) 129/68 mmHg BP Sitting (Post-Dialysis) 123/49 mmHg Concurrent Access: falseAV Fistula Upper Arm (Right) Arterial BP Standing (Pre-Dialysis) 132/72 mmHg BP Standing (P ost-Dialysis) 117/52 mmHg Sitting Heart Rate Pre-Dialysis 90 BPM Sitting Heart Rate Post-Dialysis 83 BPM Standing Heart Rate Pre-Dialysis 96 BPM Standing Heart Rate Post-Dialysis 73 BPM Temperature Pre-Dialysis 97 degF Temperature Post -Dialysis 97 degF January 24, 2023 In-Center Hemodialysis Treatment 6419-30-11P59:14:00.000Z 8504-75-54G78:39:17.000Z BP Sitting (Pre-Dialysis) 135/55 mmHg BP Sitting (Post-Dialysis) 103/53 mmHg Concurrent Access: falseAV Fistula Upper Arm (Right) Arterial Sitting Heart Rate Pre-Dialysis 91 BPM Sitting H eart Rate Post-Dialysis 92 BPM Temperature Pre-Dialysis 97 degF Temperature Post -Dialysis 97.9 degF January 22, 2023 In-Center Hemodialysis Treatment 4041-16-00I16:12:00.000Z 8613-13-11S88:31:17.000Z BP Sitting (Pre-Dialysis) 116/39 mmHg BP Sitting (Post-Dialysis) 102/50 mmHg Concurrent Access: falseAV Fistula Upper Arm (Right) Arterial Sitting Heart Rate Pre-Dialysis 87 BPM Sitting H eart Rate Post-Dialysis 91 BPM Temperature Pre-Dialysis 97 degF Temperature Post -Dialysis 97 degF January 20, 2023 In-Center Hemodialysis Treatment 1808-14-50Z46:30:27.000Z 3513-04-57B88:54:26.000Z BP Sitting (Pre-Dialysis) 109/55 mmHg BP Sitting (Post-Dialysis) 93/49 mmHg Concurrent Access: falseAV Fistula Upper Arm (Right) Arterial Sitting Heart Rate Pre-Dialysis 94 BPM BP Standing (Post-Dialysis) 102/60 mmHg Temperature Pre-Dialysis 97.8 degF Sitting Heart Ra te Post-Dialysis 88 BPM Standing Heart Rate Post-Gladis lysis 89 BPM Temperature Post-Dialysis 97 .8 degF January 17, 2023 In-Center Hemodialysis Treatment 9394-04-33T39:50:00.000Z 2834-97-14Z21:10:18.000Z BP Sitting (Pre-Dialysis) 123/51 mmHg BP Sitting (Post-Dialysis) 112/46 mmHg Concurrent Access: falseAV Fistula Upper Arm (Right) Arterial Sitting Heart Rate Pre-Dialysis 86 BPM Sitting H eart Rate Post-Dialysis 88 BPM Temperature Pre-Dialysis 97.9 degF Temperature Post -Dialysis 97.9 degF January 15, 2023 In-Center Hemodialysis Treatment 9618-13-94D58:06:00.000Z 3799-92-06Y55:33:32.000Z BP Sitting (Pre-Dialysis) 106/58 mmHg BP Sitting (Post-Dialysis) 88/53 mmHg Concurrent Access: falseAV Fistula Upper Arm (Right) Arterial BP Standing (Pre-Dialysis) 105/58 mmHg BP Standing (P ost-Dialysis) 91/51 mmHg Sitting Heart Rate Pre-Dialysis 89 BPM Sitting Heart Rate Post-Dialysis 87 BPM Standing Heart Rate Pre-Dialysis 93 BPM Standing Heart Rate Post-Dialysis 86 BPM Temperature Pre-Dialysis 97.6 degF Temperature Post -Dialysis 97.8 degF January 13, 2023 In-Center Hemodialysis Treatment 8377-36-09R96:37:00.000Z 8876-07-86R47:39:23.000Z BP Sitting (Pre-Dialysis) 101/48 mmHg BP Sitting (Post-Dialysis) 101/55 mmHg Concurrent Access: falseAV Fistula Upper Arm (Right) Arterial Sitting Heart Rate Pre-Dialysis 103 BPM Sitting H eart Rate Post-Dialysis 89 BPM Temperature Pre-Dialysis 97.5 degF Temperature Post -Dialysis 97.6 degF January 10, 2023 In-Center Hemodialysis Treatment 2753-58-39G10:34:00.000Z 6800-09-52T65:58:20.000Z BP Sitting (Pre-Dialysis) 130/58 mmHg BP Sitting (Post-Dialysis) 103/46 mmHg Concurrent Access: falseAV Fistula Upper Arm (Right) Arterial Sitting Heart Rate Pre-Dialysis 64 BPM Sitting H eart Rate Post-Dialysis 92 BPM Temperature Pre-Dialysis 97.7 degF Temperature Post -Dialysis 97.9 degF January 08, 2023 In-Center Hemodialysis Treatment 4102-76-83Z53:53:19.000Z 9768-07-65U73:31:20.000Z BP Sitting (Pre-Dialysis) 142/66 mmHg BP Sitting (Post-Dialysis) 117/46 mmHg Concurrent Access: falseAV Fistula Upper Arm (Right) Arterial BP Standing (Pre-Dialysis) 116/54 mmHg Sitti ng Heart Rate Post-Dialysis 95 BPM Sitting Heart Rate Pre-Dialysis 89 BPM Temperatu re Post-Dialysis 97.2 degF Standing Heart Rate Pre-Dialysis 87 BPM Temperature Pre-Dialysis 98 degF January 06, 2023 In-Center Hemodialysis Treatment [id number]:43:00.000Z 9213-96-49F02:07:05.000Z BP Sitting (Pre-Dialysis) 146/54 mmHg BP Sitting (Post-Dialysis) 104/48 mmHg Concurrent Access: falseAV Fistula Upper Arm (Right) Arterial BP Standing (Pre-Dialysis) 153/76 mmHg BP Standing (P ost-Dialysis) 117/41 mmHg Sitting Heart Rate Pre-Dialysis 77 BPM Sitting Heart Rate Post-Dialysis 65 BPM Standing Heart Rate Pre-Dialysis 86 BPM Standing Heart Rate Post-Dialysis 87 BPM Temperature Pre-Dialysis 97 degF Temperature Post -Dialysis 97 degF January 03, 2023 In-Center Hemodialysis Treatment [id number]:52:51.000Z 9197-42-16L13:24:52.000Z BP Sitting (Pre-Dialysis) 128/41 mmHg BP Sitting (Post-Dialysis) 109/48 mmHg Concurrent Access: falseAV Fistula Upper Arm (Right) Arterial Sitting Heart Rate Pre-Dialysis 88 BPM Sitting H eart Rate Post-Dialysis 89 BPM Temperature Pre-Dialysis 97.8 degF Temperature Post -Dialysis 97.5 degF January 01, 2023 In-Center Hemodialysis Treatment 3603-53-82U62:27:00.000Z 7497-08-59F84:53:13.000Z BP Sitting (Pre-Dialysis) 117/97 mmHg BP Sitting (Post-Dialysis) 99/48 mmHg Concurrent Access: falseAV Fistula Upper Arm (Right) Arterial BP Standing (Pre-Dialysis) 112/55 mmHg Sitti ng Heart Rate Post-Dialysis 100 BPM Sitting Heart Rate Pre-Dialysis 75 BPM Temperatu re Post-Dialysis 97.5 degF Standing Heart Rate Pre-Dialysis 97 BPM Temperature Pre-Dialysis 97.9 degF December 30, 2022 In-Center Hemodialysis Treatment 9616-75-04G43:50:00.000Z 6670-43-77X00:15:52.000Z BP Sitting (Pre-Dialysis) 92/51 mmHg BP Sitting (Post-Dialysis) 111/77 mmHg Concurrent Access: falseAV Fistula Upper Arm (Right) Arterial Sitting Heart Rate Pre-Dialysis 96 BPM Sitting H eart Rate Post-Dialysis 90 BPM Temperature Pre-Dialysis 97.7 degF Temperature Post -Dialysis 97.8 degF December 27, 2022 In-Center Hemodialysis Treatment 7051-97-78Z09:48:00.000Z 7414-41-12Q16:46:34.000Z BP Sitting (Pre-Dialysis) 126/57 mmHg BP Sitting (Post-Dialysis) 94/49 mmHg Concurrent Access: falseAV Fistula Upper Arm (Right) Arterial Sitting Heart Rate Pre-Dialysis 68 BPM Sitting H eart Rate Post-Dialysis 90 BPM Temperature Pre-Dialysis 97.5 degF Temperature Post -Dialysis 97.2 degF December 25, 2022 In-Center Hemodialysis Treatment 9520-05-96C51:03:00.000Z 2732-54-74S23:23:14.000Z BP Sitting (Pre-Dialysis) 117/41 mmHg BP Sitting (Post-Dialysis) 96/35 mmHg Concurrent Access: falseAV Fistula Upper Arm (Right) Arterial BP Standing (Pre-Dialysis) 114/70 mmHg Sitti ng Heart Rate Post-Dialysis 86 BPM Sitting Heart Rate Pre-Dialysis 83 BPM Temperatu re Post-Dialysis 97.9 degF Standing Heart Rate Pre-Dialysis 86 BPM Temperature Pre-Dialysis 97.6 degF December 23, 2022 In-Center Hemodialysis Treatment 5539-73-07S24:54:25.000Z 6452-14-16Y28:11:25.000Z BP Sitting (Pre-Dialysis) 118/56 mmHg BP Sitting (Post-Dialysis) 122/36 mmHg Concurrent Access: falseAV Fistula Upper Arm (Right) Arterial BP Standing (Pre-Dialysis) 111/55 mmHg Sitti ng Heart Rate Post-Dialysis 86 BPM Sitting Heart Rate Pre-Dialysis 81 BPM Temperatu re Post-Dialysis 97.6 degF Standing Heart Rate Pre-Dialysis 81 BPM Temperature Pre-Dialysis 97.3 degF December 20, 2022 In-Center Hemodialysis Treatment 9337-54-15R61:01:07.000Z 2774-66-84M34:22:08.000Z BP Sitting (Pre-Dialysis) 137/71 mmHg BP Sitting (Post-Dialysis) 97/57 mmHg Concurrent Access: falseAV Fistula Upper Arm (Right) Arterial Sitting Heart Rate Pre-Dialysis 93 BPM Sitting H eart Rate Post-Dialysis 72 BPM Temperature Pre-Dialysis 97.7 degF Temperature Post -Dialysis 97.6 degF December 18, 2022 In-Center Hemodialysis Treatment 5822-39-68B22:11:00.000Z 5179-15-01H69:32:07.000Z BP Sitting (Pre-Dialysis) 110/56 mmHg BP Sitting (Post-Dialysis) 93/36 mmHg Concurrent Access: falseAV Fistula Upper Arm (Right) Arterial Sitting Heart Rate Pre-Dialysis 108 BPM BP Standing (Post-Dialysis) 108/49 mmHg Temperature Pre-Dialysis 97.6 degF Sitting Heart Ra te Post-Dialysis 99 BPM Standing Heart Rate Post-Gladis lysis 103 BPM Temperature Post-Dialysis 97 .6 degF December 16, 2022 In-Center Hemodialysis Treatment [id number]:46:00.000Z 9995-76-81Q65:11:49.000Z BP Sitting (Pre-Dialysis) 124/52 mmHg BP Sitting (Post-Dialysis) 97/37 mmHg Concurrent Access: falseAV Fistula Upper Arm (Right) Arterial Sitting Heart Rate Pre-Dialysis 90 BPM Sitting H eart Rate Post-Dialysis 92 BPM Temperature Pre-Dialysis 97.3 degF Temperature Post -Dialysis 97.6 degF December 13, 2022 In-Center Hemodialysis Treatment 9252-23-58B88:06:00.000Z 7745-64-50Y39:16:38.000Z BP Sitting (Pre-Dialysis) 102/36 mmHg BP Sitting (Post-Dialysis) 84/42 mmHg Concurrent Access: falseAV Fistula Upper Arm (Right) Arterial Sitting Heart Rate Pre-Dialysis 100 BPM Sitting H eart Rate Post-Dialysis 87 BPM Temperature Pre-Dialysis 97 degF Temperature Post -Dialysis 97.8 degF December 11, 2022 In-Center Hemodialysis Treatment 8239-74-31J62:51:00.000Z 2518-53-67G85:31:38.000Z BP Sitting (Pre-Dialysis) 109/47 mmHg BP Sitting (Post-Dialysis) 115/31 mmHg Concurrent Access: falseAV Fistula Upper Arm (Right) Arterial BP Standing (Pre-Dialysis) 102/42 mmHg BP Standing (P ost-Dialysis) 104/45 mmHg Sitting Heart Rate Pre-Dialysis 63 BPM Sitting Heart Rate Post-Dialysis 94 BPM Standing Heart Rate Pre-Dialysis 95 BPM Standing Heart Rate Post-Dialysis 88 BPM Temperature Pre-Dialysis 97.8 degF Temperature Post -Dialysis 97.6 degF December 09, 2022 In-Center Hemodialysis Treatment [id number]:41:00.000Z 4491-45-70E84:02:33.000Z BP Sitting (Pre-Dialysis) 121/57 mmHg BP Sitting (Post-Dialysis) 115/33 mmHg Concurrent Access: falseAV Fistula Upper Arm (Right) Arterial BP Standing (Pre-Dialysis) 106/46 mmHg Sitti ng Heart Rate Post-Dialysis 99 BPM Sitting Heart Rate Pre-Dialysis 94 BPM Temperatu re Post-Dialysis 97.3 degF Standing Heart Rate Pre-Dialysis 101 BPM Temperature Pre-Dialysis 97.3 degF December 06, 2022 In-Center Hemodialysis Treatment 6496-77-70R15:11:00.000Z 4875-02-02H90:31:57.000Z BP Sitting (Pre-Dialysis) 83/51 mmHg BP Sitting (Post-Dialysis) 142/45 mmHg Concurrent Access: falseAV Fistula Upper Arm (Right) Arterial Sitting Heart Rate Pre-Dialysis 92 BPM BP Standi ng (Post-Dialysis) 14/66 mmHg Temperature Pre-Dialysis 99.1 degF Sitting Heart Ra te Post-Dialysis 88 BPM Standing Heart Rate Post-Gladis lysis 94 BPM Temperature Post-Dialysis 97 .8 degF December 02, 2022 In-Center Hemodialysis Treatment 7673-84-03D65:48:00.000Z 5121-34-52U50:06:25.000Z BP Sitting (Pre-Dialysis) 122/55 mmHg BP Sitting (Post-Dialysis) 101/51 mmHg Concurrent Access: falseAV Fistula Upper Arm (Right) Arterial BP Standing (Pre-Dialysis) 127/53 mmHg BP Standing (P ost-Dialysis) 126/58 mmHg Sitting Heart Rate Pre-Dialysis 73 BPM Sitting Heart Rate Post-Dialysis 86 BPM Standing Heart Rate Pre-Dialysis 74 BPM Standing Heart Rate Post-Dialysis 88 BPM Temperature Pre-Dialysis 97.5 degF Temperature Post -Dialysis 97.6 degF November 29, 2022 In-Center Hemodialysis Treatment 2029-14-42X32:23:00.000Z 3428-79-64I50:42:13.000Z BP Sitting (Pre-Dialysis) 150/58 mmHg BP Sitting (Post-Dialysis) 103/49 mmHg Concurrent Access: falseAV Fistula Upper Arm (Right) Arterial BP Standing (Pre-Dialysis) 154/60 mmHg BP Standing (P ost-Dialysis) 105/42 mmHg Sitting Heart Rate Pre-Dialysis 86 BPM Sitting Heart Rate Post-Dialysis 87 BPM Standing Heart Rate Pre-Dialysis 78 BPM Standing Heart Rate Post-Dialysis 88 BPM Temperature Pre-Dialysis 97.5 degF Temperature Post -Dialysis 97.8 degF November 27, 2022 In-Center Hemodialysis Treatment [id number]:29:14.000Z 1925-65-96P90:44:13.000Z BP Sitting (Pre-Dialysis) 108/56 mmHg BP Sitting (Post-Dialysis) 104/54 mmHg Concurrent Access: falseAV Fistula Upper Arm (Right) Arterial BP Standing (Pre-Dialysis) 111/47 mmHg BP Standing (P ost-Dialysis) 112/56 mmHg Sitting Heart Rate Pre-Dialysis 64 BPM Sitting Heart Rate Post-Dialysis 88 BPM Standing Heart Rate Pre-Dialysis 78 BPM Standing Heart Rate Post-Dialysis 85 BPM Temperature Pre-Dialysis 97.3 degF Temperature Post -Dialysis 97.6 degF November 25, 2022 In-Center Hemodialysis Treatment [id number]:41:00.000Z 6719-64-56K83:01:13.000Z BP Sitting (Pre-Dialysis) 122/42 mmHg BP Sitting (Post-Dialysis) 103/53 mmHg Concurrent Access: falseAV Fistula Upper Arm (Right) Arterial BP Standing (Pre-Dialysis) 114/59 mmHg Sitti ng Heart Rate Post-Dialysis 81 BPM Sitting Heart Rate Pre-Dialysis 76 BPM Temperatu re Post-Dialysis 97.8 degF Standing Heart Rate Pre-Dialysis 79 BPM Temperature Pre-Dialysis 97.8 degF November 22, 2022 In-Center Hemodialysis Treatment 7073-75-04J94:53:01.000Z 8661-72-01G11:04:01.000Z BP Sitting (Pre-Dialysis) 100/50 mmHg BP Sitting (Post-Dialysis) 115/56 mmHg Concurrent Access: falseAV Fistula Upper Arm (Right) Arterial BP Standing (Pre-Dialysis) 96/41 mmHg BP Standing (P ost-Dialysis) 110/54 mmHg Sitting Heart Rate Pre-Dialysis 81 BPM Sitting Heart Rate Post-Dialysis 94 BPM Standing Heart Rate Pre-Dialysis 84 BPM Standing Heart Rate Post-Dialysis 90 BPM Temperature Pre-Dialysis 97.8 degF Temperature Post -Dialysis 97.9 degF November 20, 2022 In-Center Hemodialysis Treatment [id number]:31:00.000Z 2666-14-68H31:54:08.000Z BP Sitting (Pre-Dialysis) 122/50 mmHg BP Sitting (Post-Dialysis) 114/77 mmHg Concurrent Access: falseAV Fistula Upper Arm (Right) Arterial BP Standing (Pre-Dialysis) 128/40 mmHg Sitti ng Heart Rate Post-Dialysis 69 BPM Sitting Heart Rate Pre-Dialysis 79 BPM Temperatu re Post-Dialysis 97.9 degF Standing Heart Rate Pre-Dialysis 81 BPM Temperature Pre-Dialysis 97.9 degF November 18, 2022 In-Center Hemodialysis Treatment 5159-23-34Z68:28:54.000Z 6210-75-47A37:47:54.000Z BP Sitting (Pre-Dialysis) 116/51 mmHg BP Sitting (Post-Dialysis) 114/56 mmHg Concurrent Access: falseAV Fistula Upper Arm (Right) Arterial BP Standing (Pre-Dialysis) 125/53 mmHg Sitti ng Heart Rate Post-Dialysis 84 BPM Sitting Heart Rate Pre-Dialysis 75 BPM Temperatu re Post-Dialysis 97.4 degF Standing Heart Rate Pre-Dialysis 79 BPM Temperature Pre-Dialysis 97.4 degF November 15, 2022 In-Center Hemodialysis Treatment [id number]:58:00.000Z 2407-47-67P27:19:12.000Z BP Sitting (Pre-Dialysis) 117/47 mmHg BP Sitting (Post-Dialysis) 101/35 mmHg Concurrent Access: falseAV Fistula Upper Arm (Right) Arterial Sitting Heart Rate Pre-Dialysis 83 BPM BP Standi ng (Post-Dialysis) 96/58 mmHg Temperature Pre-Dialysis 97.8 degF Sitting Heart Ra te Post-Dialysis 73 BPM Standing Heart Rate Post-Gladis lysis 77 BPM Temperature Post-Dialysis 97 .6 degF November 13, 2022 In-Center Hemodialysis Treatment 9431-63-34L44:16:00.000Z 0759-02-32X98:38:10.000Z BP Sitting (Pre-Dialysis) 118/48 mmHg BP Sitting (Post-Dialysis) 98/48 mmHg Concurrent Access: falseAV Fistula Upper Arm (Right) Arterial Sitting Heart Rate Pre-Dialysis 84 BPM BP Standing (Post-Dialysis) 101/43 mmHg Temperature Pre-Dialysis 97.8 degF Sitting Heart Ra te Post-Dialysis 83 BPM Standing Heart Rate Post-Gladis lysis 77 BPM Temperature Post-Dialysis 97 .8 degF November 06, 2022 In-Center Hemodialysis Treatment 0853-02-92F79:50:00.000Z 1530-77-46R13:33:19.000Z BP Sitting (Pre-Dialysis) 131/45 mmHg BP Sitting (Post-Dialysis) 111/39 mmHg Concurrent Access: falseAV Fistula Upper Arm (Right) Arterial BP Standing (Pre-Dialysis) 127/35 mmHg Sitti ng Heart Rate Post-Dialysis 70 BPM Sitting Heart Rate Pre-Dialysis 72 BPM Temperatu re Post-Dialysis 97.1 degF Standing Heart Rate Pre-Dialysis 76 BPM Temperature Pre-Dialysis 97.7 degF November 04, 2022 In-Center Hemodialysis Treatment 4230-57-66M28:54:15.000Z 2220-29-27F02:00:16.000Z BP Sitting (Pre-Dialysis) 113/67 mmHg BP Sitting (Post-Dialysis) 91/40 mmHg Concurrent Access: falseAV Fistula Upper Arm (Right) Arterial BP Standing (Pre-Dialysis) 122/44 mmHg Sitti ng Heart Rate Post-Dialysis 66 BPM Sitting Heart Rate Pre-Dialysis 63 BPM Temperatu re Post-Dialysis 97.7 degF Standing Heart Rate Pre-Dialysis 70 BPM Temperature Pre-Dialysis 97.8 degF November 01, 2022 In-Center Hemodialysis Treatment 4437-90-21V96:30:00.000Z 2001-80-46U67:36:15.000Z BP Sitting (Pre-Dialysis) 107/50 mmHg BP Sitting (Post-Dialysis) 94/37 mmHg Concurrent Access: falseAV Fistula Upper Arm (Right) Arterial Sitting Heart Rate Pre-Dialysis 76 BPM Sitting H eart Rate Post-Dialysis 60 BPM Temperature Pre-Dialysis 97.8 degF Temperature Post -Dialysis 97.8 degF October 30, 2022 In-Center Hemodialysis Treatment [id number]:38:00.000Z 9818-47-25H91:03:15.000Z BP Sitting (Pre-Dialysis) 133/61 mmHg BP Sitting (Post-Dialysis) 101/43 mmHg Concurrent Access: falseAV Fistula Upper Arm (Right) Arterial Sitting Heart Rate Pre-Dialysis 75 BPM Sitting H eart Rate Post-Dialysis 73 BPM Temperature Pre-Dialysis 97.8 degF Temperature Post -Dialysis 97.8 degF October 28, 2022 In-Center Hemodialysis Treatment [id number]:49:00.000Z 3036-67-07N73:06:38.000Z BP Sitting (Pre-Dialysis) 97/77 mmHg BP Sitting (Post-Dialysis) 102/60 mmHg Concurrent Access: falseAV Fistula Upper Arm (Right) Arterial BP Standing (Pre-Dialysis) 145/52 mmHg Sitti ng Heart Rate Post-Dialysis 78 BPM Sitting Heart Rate Pre-Dialysis 67 BPM Temperatu re Post-Dialysis 98.1 degF Standing Heart Rate Pre-Dialysis 74 BPM Temperature Pre-Dialysis 97.6 degF October 25, 2022 In-Center Hemodialysis Treatment [id number]:52:00.000Z 9234-65-72U22:29:23.000Z BP Sitting (Pre-Dialysis) 155/58 mmHg BP Sitting (Post-Dialysis) 120/34 mmHg Concurrent Access: falseAV Fistula Upper Arm (Right) Arterial BP Standing (Pre-Dialysis) 156/62 mmHg Sitti ng Heart Rate Post-Dialysis 67 BPM Sitting Heart Rate Pre-Dialysis 66 BPM Temperatu re Post-Dialysis 97.7 degF Standing Heart Rate Pre-Dialysis 88 BPM Temperature Pre-Dialysis 97.7 degF October 23, 2022 In-Center Hemodialysis Treatment [id number]:41:00.000Z 0432-72-61N00:23:23.000Z BP Sitting (Pre-Dialysis) 135/32 mmHg BP Sitting (Post-Dialysis) 102/46 mmHg Concurrent Access: falseAV Fistula Upper Arm (Right) Arterial BP Standing (Pre-Dialysis) 133/96 mmHg Sitti ng Heart Rate Post-Dialysis 65 BPM Sitting Heart Rate Pre-Dialysis 69 BPM Temperatu re Post-Dialysis 97.6 degF Standing Heart Rate Pre-Dialysis 90 BPM Temperature Pre-Dialysis 97.5 degF October 21, 2022 In-Center Hemodialysis Treatment 2007-31-19E28:06:03.000Z 4259-93-71I11:22:02.000Z BP Sitting (Pre-Dialysis) 114/48 mmHg BP Sitting (Post-Dialysis) 120/53 mmHg Concurrent Access: falseAV Fistula Upper Arm (Right) Arterial BP Standing (Pre-Dialysis) 132/55 mmHg Sitti ng Heart Rate Post-Dialysis 77 BPM Sitting Heart Rate Pre-Dialysis 68 BPM Temperatu re Post-Dialysis 97.9 degF Standing Heart Rate Pre-Dialysis 73 BPM Temperature Pre-Dialysis 97.6 degF October 18, 2022 In-Center Hemodialysis Treatment 5113-00-77O39:59:00.000Z 1371-77-45D71:19:38.000Z BP Sitting (Pre-Dialysis) 161/59 mmHg BP Sitting (Post-Dialysis) 111/48 mmHg Concurrent Access: falseAV Fistula Upper Arm (Right) Arterial BP Standing (Pre-Dialysis) 132/54 mmHg Sitti ng Heart Rate Post-Dialysis 60 BPM Sitting Heart Rate Pre-Dialysis 75 BPM Temperatu re Post-Dialysis 97.8 degF Standing Heart Rate Pre-Dialysis 73 BPM Temperature Pre-Dialysis 97.9 degF October 16, 2022 In-Center Hemodialysis Treatment [id number]:49:00.000Z 3425-19-97E04:04:38.000Z BP Sitting (Pre-Dialysis) 125/46 mmHg BP Sitting (Post-Dialysis) 111/35 mmHg Concurrent Access: falseAV Fistula Upper Arm (Right) Arterial Sitting Heart Rate Pre-Dialysis 78 BPM Sitting H eart Rate Post-Dialysis 73 BPM Temperature Pre-Dialysis 98 degF October 14, 2022 In-Center Hemodialysis Treatment [id number]:58:09.000Z 0922-56-43N36:28:08.000Z BP Sitting (Pre-Dialysis) 170/69 mmHg BP Sitting (Post-Dialysis) 116/48 mmHg Concurrent Access: falseAV Fistula Upper Arm (Right) Arterial Sitting Heart Rate Pre-Dialysis 71 BPM Sitting H eart Rate Post-Dialysis 73 BPM Temperature Pre-Dialysis 97.1 degF Temperature Post -Dialysis 96 degF October 11, 2022 In-Center Hemodialysis Treatment [id number]:28:00.000Z 9535-52-64Q35:35:23.000Z BP Sitting (Pre-Dialysis) 100/48 mmHg BP Sitting (Post-Dialysis) 122/42 mmHg Concurrent Access: falseAV Fistula Upper Arm (Right) Arterial Sitting Heart Rate Pre-Dialysis 81 BPM Sitting H eart Rate Post-Dialysis 84 BPM Temperature Pre-Dialysis 97.9 degF Temperature Post -Dialysis 97.8 degF October 09, 2022 In-Center Hemodialysis Treatment [id number]:19:34.000Z 8776-09-20O14:39:00.000Z BP Sitting (Pre-Dialysis) 101/42 mmHg BP Sitting (Post-Dialysis) 120/46 mmHg Concurrent Access: falseAV Fistula Upper Arm (Right) Arterial Sitting Heart Rate Pre-Dialysis 94 BPM Sitting H eart Rate Post-Dialysis 85 BPM Temperature Pre-Dialysis 97.9 degF October 07, 2022 In-Center Hemodialysis Treatment 7115-23-39V69:40:00.000Z 8235-69-68K46:58:34.000Z BP Sitting (Pre-Dialysis) 140/46 mmHg BP Sitting (Post-Dialysis) 122/36 mmHg Concurrent Access: falseAV Fistula Upper Arm (Right) Arterial Sitting Heart Rate Pre-Dialysis 80 BPM Sitting H eart Rate Post-Dialysis 69 BPM Temperature Pre-Dialysis 97 degF Temperature Post -Dialysis 97.8 degF October 04, 2022 In-Center Hemodialysis Treatment 8780-56-70O23:44:00.000Z 5276-67-30P25:04:18.000Z BP Sitting (Pre-Dialysis) 137/62 mmHg BP Sitting (Post-Dialysis) 130/51 mmHg Concurrent Access: falseAV Fistula Upper Arm (Right) Arterial Sitting Heart Rate Pre-Dialysis 88 BPM Sitting H eart Rate Post-Dialysis 76 BPM Temperature Pre-Dialysis 97.8 degF Temperature Post -Dialysis 97.8 degF October 02, 2022 In-Center Hemodialysis Treatment 1161-74-53T72:45:00.000Z 9704-70-94K43:00:17.000Z BP Sitting (Pre-Dialysis) 146/77 mmHg BP Sitting (Post-Dialysis) 128/60 mmHg Concurrent Access: falseAV Fistula Upper Arm (Right) Arterial Sitting Heart Rate Pre-Dialysis 86 BPM Sitting H eart Rate Post-Dialysis 81 BPM Temperature Pre-Dialysis 97.4 degF Temperature Post -Dialysis 97 degF October 01, 2022 Additional Day Of Dialysis Treatment 7770-31-70T91:15:00.000Z 3319-29-63M08:32:30.000Z BP Sitting (Pre-Dialysis) 125/41 mmHg BP Sitting (Post-Dialysis) 124/44 mmHg Concurrent Access: falseAV Fistula Upper Arm (Right) Arterial Sitting Heart Rate Pre-Dialysis 90 BPM Sitting H eart Rate Post-Dialysis 89 BPM Temperature Pre-Dialysis 98.1 degF September 30, 2022 In-Center Hemodialysis Treatment 3143-49-45J58:55:00.000Z 1547-48-64K39:11:18.000Z BP Sitting (Pre-Dialysis) 149/43 mmHg BP Sitting (Post-Dialysis) 118/51 mmHg Concurrent Access: falseAV Fistula Upper Arm (Right) Arterial Sitting Heart Rate Pre-Dialysis 76 BPM Sitting H eart Rate Post-Dialysis 89 BPM Temperature Pre-Dialysis 97.8 degF Temperature Post -Dialysis 97.7 degF September 27, 2022 In-Center Hemodialysis Treatment 3742-16-87I39:27:00.000Z 0155-65-23W50:42:40.000Z BP Sitting (Pre-Dialysis) 149/59 mmHg BP Sitting (Post-Dialysis) 123/42 mmHg Concurrent Access: falseAV Fistula Upper Arm (Right) Arterial Sitting Heart Rate Pre-Dialysis 69 BPM Sitting H eart Rate Post-Dialysis 82 BPM Temperature Pre-Dialysis 97.8 degF Temperature Post -Dialysis 97.8 degF September 25, 2022 In-Center Hemodialysis Treatment 8482-78-26B85:49:00.000Z 0789-67-36X24:04:20.000Z BP Sitting (Pre-Dialysis) 143/67 mmHg BP Sitting (Post-Dialysis) 128/50 mmHg Concurrent Access: falseAV Fistula Upper Arm (Right) Arterial Sitting Heart Rate Pre-Dialysis 82 BPM Sitting H eart Rate Post-Dialysis 69 BPM Temperature Pre-Dialysis 97.8 degF Temperature Post -Dialysis 97.8 degF September 23, 2022 In-Center Hemodialysis Treatment 2148-19-56H30:40:00.000Z 8053-08-14M01:28:41.000Z BP Sitting (Pre-Dialysis) 106/57 mmHg BP Sitting (Post-Dialysis) 127/74 mmHg Concurrent Access: falseAV Fistula Upper Arm (Right) Arterial Sitting Heart Rate Pre-Dialysis 81 BPM Sitting H eart Rate Post-Dialysis 73 BPM Temperature Pre-Dialysis 97.8 degF Temperature Post -Dialysis 97.8 degF September 20, 2022 In-Center Hemodialysis Treatment 8050-27-43P93:42:00.000Z 8822-03-54Z02:59:08.000Z BP Sitting (Pre-Dialysis) 133/48 mmHg BP Sitting (Post-Dialysis) 110/43 mmHg Concurrent Access: falseAV Fistula Upper Arm (Right) Arterial Sitting Heart Rate Pre-Dialysis 67 BPM Sitting H eart Rate Post-Dialysis 71 BPM Temperature Pre-Dialysis 97.4 degF Temperature Post -Dialysis 97 degF September 18, 2022 In-Center Hemodialysis Treatment 5069-63-14F17:50:00.000Z 5740-20-48W29:15:08.000Z BP Sitting (Pre-Dialysis) 129/53 mmHg BP Sitting (Post-Dialysis) 106/46 mmHg Concurrent Access: falseAV Fistula Upper Arm (Right) Arterial Sitting Heart Rate Pre-Dialysis 63 BPM Sitting H eart Rate Post-Dialysis 68 BPM Temperature Pre-Dialysis 97.9 degF Temperature Post -Dialysis 97 degF September 16, 2022 In-Center Hemodialysis Treatment 3847-78-30X62:00:00.000Z 3005-42-62U67:22:13.000Z BP Sitting (Pre-Dialysis) 138/62 mmHg BP Sitting (Post-Dialysis) 114/65 mmHg Concurrent Access: falseAV Fistula Upper Arm (Right) Arterial Sitting Heart Rate Pre-Dialysis 88 BPM Sitting H eart Rate Post-Dialysis 85 BPM Temperature Pre-Dialysis 97.6 degF Temperature Post -Dialysis 97.8 degF September 13, 2022 In-Center Hemodialysis Treatment 8282-82-07S68:38:00.000Z 5316-39-85A70:57:08.000Z BP Sitting (Pre-Dialysis) 147/52 mmHg BP Sitting (Post-Dialysis) 109/37 mmHg Concurrent Access: falseAV Fistula Upper Arm (Right) Arterial Sitting Heart Rate Pre-Dialysis 69 BPM Sitting H eart Rate Post-Dialysis 73 BPM Temperature Pre-Dialysis 97.6 degF Temperature Post -Dialysis 97.8 degF September 11, 2022 In-Center Hemodialysis Treatment 0959-65-58I60:51:00.000Z 0978-32-68C85:13:08.000Z BP Sitting (Pre-Dialysis) 106/35 mmHg BP Sitting (Post-Dialysis) 128/63 mmHg Concurrent Access: falseAV Fistula Upper Arm (Right) Arterial Sitting Heart Rate Pre-Dialysis 78 BPM Sitting H eart Rate Post-Dialysis 68 BPM Temperature Pre-Dialysis 97.6 degF Temperature Post -Dialysis 97 degF September 09, 2022 In-Center Hemodialysis Treatment 4817-26-52O10:47:00.000Z 6855-17-60V05:03:11.000Z BP Sitting (Pre-Dialysis) 132/39 mmHg BP Sitting (Post-Dialysis) 106/40 mmHg Concurrent Access: falseAV Fistula Upper Arm (Right) Arterial Sitting Heart Rate Pre-Dialysis 88 BPM Sitting H eart Rate Post-Dialysis 74 BPM Temperature Pre-Dialysis 97.6 degF Temperature Post -Dialysis 97.5 degF September 06, 2022 In-Center Hemodialysis Treatment 4468-02-79C68:49:00.000Z 2605-86-13E88:08:38.000Z BP Sitting (Pre-Dialysis) 173/80 mmHg BP Sitting (Post-Dialysis) 152/41 mmHg Concurrent Access: falseAV Fistula Upper Arm (Right) Arterial Sitting Heart Rate Pre-Dialysis 87 BPM Sitting H eart Rate Post-Dialysis 76 BPM Temperature Pre-Dialysis 97.7 degF Temperature Post -Dialysis 97 degF September 04, 2022 In-Center Hemodialysis Treatment 1350-19-39B45:24:00.000Z 1034-40-40T87:40:16.000Z BP Sitting (Pre-Dialysis) 120/37 mmHg BP Sitting (Post-Dialysis) 96/34 mmHg Concurrent Access: falseAV Fistula Upper Arm (Right) Arterial Sitting Heart Rate Pre-Dialysis 57 BPM Sitting H eart Rate Post-Dialysis 79 BPM Temperature Pre-Dialysis 97.7 degF Temperature Post -Dialysis 97.7 degF September 02, 2022 In-Center Hemodialysis Treatment 8678-24-90K40:50:46.000Z 5388-16-90P49:10:46.000Z BP Sitting (Pre-Dialysis) 164/65 mmHg BP Sitting (Post-Dialysis) 120/53 mmHg Concurrent Access: falseAV Fistula Upper Arm (Right) Arterial Sitting Heart Rate Pre-Dialysis 80 BPM Sitting H eart Rate Post-Dialysis 73 BPM Temperature Pre-Dialysis 97.7 degF Temperature Post -Dialysis 97.6 degF August 30, 2022 In-Center Hemodialysis Treatment 6696-23-99I64:50:00.000Z 2908-15-22H52:10:30.000Z BP Sitting (Pre-Dialysis) 152/65 mmHg BP Sitting (Post-Dialysis) 115/47 mmHg Concurrent Access: falseAV Fistula Upper Arm (Right) Arterial Sitting Heart Rate Pre-Dialysis 83 BPM Sitting H eart Rate Post-Dialysis 72 BPM Temperature Pre-Dialysis 97.7 degF Temperature Post -Dialysis 97.6 degF August 28, 2022 In-Center Hemodialysis Treatment 8680-99-96D55:56:00.000Z 3888-41-24P23:53:00.000Z BP Sitting (Pre-Dialysis) 153/78 mmHg BP Sitting (Post-Dialysis) 129/53 mmHg Concurrent Access: falseAV Fistula Upper Arm (Right) Arterial Sitting Heart Rate Pre-Dialysis 84 BPM Sitting H eart Rate Post-Dialysis 76 BPM Temperature Pre-Dialysis 97 degF Temperature Post -Dialysis 97.4 degF August 26, 2022 In-Center Hemodialysis Treatment 8395-96-24K66:55:00.000Z 2722-97-99B02:12:15.000Z BP Sitting (Pre-Dialysis) 139/62 mmHg BP Sitting (Post-Dialysis) 150/56 mmHg Concurrent Access: falseAV Fistula Upper Arm (Right) Arterial Sitting Heart Rate Pre-Dialysis 69 BPM Sitting H eart Rate Post-Dialysis 77 BPM Temperature Pre-Dialysis 97.6 degF August 23, 2022 In-Center Hemodialysis Treatment 2287-29-01J20:37:00.000Z 9538-58-86D05:54:12.000Z BP Sitting (Pre-Dialysis) 139/55 mmHg BP Sitting (Post-Dialysis) 149/51 mmHg Concurrent Access: falseAV Fistula Upper Arm (Right) Arterial Sitting Heart Rate Pre-Dialysis 92 BPM Sitting H eart Rate Post-Dialysis 77 BPM Temperature Pre-Dialysis 97.7 degF Temperature Post -Dialysis 97.7 degF August 21, 2022 In-Center Hemodialysis Treatment 7487-56-89O75:24:00.000Z 8913-68-26H14:38:32.000Z BP Sitting (Pre-Dialysis) 154/61 mmHg BP Sitting (Post-Dialysis) 99/40 mmHg Concurrent Access: falseAV Fistula Upper Arm (Right) Arterial Sitting Heart Rate Pre-Dialysis 75 BPM Sitting H eart Rate Post-Dialysis 71 BPM Temperature Pre-Dialysis 97.7 degF Temperature Post -Dialysis 97.8 degF August 19, 2022 In-Center Hemodialysis Treatment 0574-71-51I59:56:00.000Z 4901-91-56Q77:14:49.000Z BP Sitting (Pre-Dialysis) 172/76 mmHg BP Sitting (Post-Dialysis) 109/42 mmHg Concurrent Access: falseAV Fistula Upper Arm (Right) Arterial Sitting Heart Rate Pre-Dialysis 79 BPM Sitting H eart Rate Post-Dialysis 67 BPM Temperature Pre-Dialysis 97.5 degF August 16, 2022 In-Center Hemodialysis Treatment 1169-67-76C75:23:00.000Z 7873-60-34I88:43:42.000Z BP Sitting (Pre-Dialysis) 138/62 mmHg BP Sitting (Post-Dialysis) 109/48 mmHg Concurrent Access: falseAV Fistula Upper Arm (Right) Arterial Sitting Heart Rate Pre-Dialysis 71 BPM Sitting H eart Rate Post-Dialysis 67 BPM Temperature Pre-Dialysis 97 degF Temperature Post -Dialysis 97.8 degF August 14, 2022 In-Center Hemodialysis Treatment 9006-72-04V84:15:00.000Z 1411-45-27O29:39:32.000Z BP Sitting (Pre-Dialysis) 134/57 mmHg BP Sitting (Post-Dialysis) 127/50 mmHg Concurrent Access: falseAV Fistula Upper Arm (Right) Arterial Sitting Heart Rate Pre-Dialysis 81 BPM Sitting H eart Rate Post-Dialysis 72 BPM Temperature Pre-Dialysis 97.8 degF Temperature Post -Dialysis 97.8 degF August 12, 2022 In-Center Hemodialysis Treatment 0108-90-88Y80:54:00.000Z 7910-04-02P98:11:32.000Z BP Sitting (Pre-Dialysis) 151/50 mmHg BP Sitting (Post-Dialysis) 150/63 mmHg Concurrent Access: falseAV Fistula Upper Arm (Right) Arterial Sitting Heart Rate Pre-Dialysis 107 BPM Sitting H eart Rate Post-Dialysis 81 BPM Temperature Pre-Dialysis 97.8 degF Temperature Post -Dialysis 97.3 degF August 09, 2022 In-Center Hemodialysis Treatment 3398-93-51Q95:55:00.000Z 2674-54-74O06:18:51.000Z BP Sitting (Pre-Dialysis) 135/50 mmHg BP Sitting (Post-Dialysis) 120/41 mmHg Concurrent Access: falseAV Fistula Upper Arm (Right) Arterial Sitting Heart Rate Pre-Dialysis 86 BPM Sitting H eart Rate Post-Dialysis 78 BPM Temperature Pre-Dialysis 97.8 degF Temperature Post -Dialysis 97 degF August 07, 2022 In-Center Hemodialysis Treatment 2256-02-99K68:40:00.000Z 5324-88-30I60:02:12.000Z BP Sitting (Pre-Dialysis) 113/52 mmHg BP Sitting (Post-Dialysis) 118/56 mmHg Concurrent Access: falseAV Fistula Upper Arm (Right) Arterial BP Standing (Pre-Dialysis) 158/38 mmHg Sitti ng Heart Rate Post-Dialysis 81 BPM Sitting Heart Rate Pre-Dialysis 79 BPM Temperatu re Post-Dialysis 97.8 degF Standing Heart Rate Pre-Dialysis 86 BPM Temperature Pre-Dialysis 97.8 degF August 05, 2022 In-Center Hemodialysis Treatment 8346-40-54A33:49:00.000Z 8714-74-31V10:01:51.000Z BP Sitting (Pre-Dialysis) 109/39 mmHg BP Sitting (Post-Dialysis) 136/28 mmHg Concurrent Access: falseAV Fistula Upper Arm (Right) Arterial Sitting Heart Rate Pre-Dialysis 75 BPM Sitting H eart Rate Post-Dialysis 72 BPM Temperature Pre-Dialysis 97.8 degF Temperature Post -Dialysis 97 degF August 02, 2022 In-Center Hemodialysis Treatment 7277-51-04M81:50:00.000Z 0984-84-23D81:09:52.000Z BP Sitting (Pre-Dialysis) 134/57 mmHg BP Sitting (Post-Dialysis) 124/42 mmHg Concurrent Access: falseAV Fistula Upper Arm (Right) Arterial Sitting Heart Rate Pre-Dialysis 71 BPM Sitting H eart Rate Post-Dialysis 75 BPM Temperature Pre-Dialysis 97.8 degF Temperature Post -Dialysis 97.7 degF July 31, 2022 In-Center Hemodialysis Treatment 6373-61-47O87:54:00.000Z 0038-36-35H91:11:09.000Z BP Sitting (Pre-Dialysis) 153/54 mmHg BP Sitting (Post-Dialysis) 181/60 mmHg Concurrent Access: falseAV Fistula Upper Arm (Right) Arterial Sitting Heart Rate Pre-Dialysis 63 BPM Sitting H eart Rate Post-Dialysis 79 BPM Temperature Pre-Dialysis 96.5 degF Temperature Post -Dialysis 97.8 degF July 29, 2022 In-Center Hemodialysis Treatment 2592-69-54Z88:36:00.000Z 8282-23-66X56:53:40.000Z BP Sitting (Pre-Dialysis) 160/83 mmHg BP Sitting (Post-Dialysis) 132/45 mmHg Concurrent Access: falseAV Fistula Upper Arm (Right) Arterial Sitting Heart Rate Pre-Dialysis 116 BPM Sitting H eart Rate Post-Dialysis 69 BPM Temperature Pre-Dialysis 97.8 degF Temperature Post -Dialysis 97 degF July 26, 2022 In-Center Hemodialysis Treatment 2687-65-09Z02:52:00.000Z 0325-84-95U64:11:23.000Z BP Sitting (Pre-Dialysis) 176/85 mmHg BP Sitting (Post-Dialysis) 130/63 mmHg Concurrent Access: falseAV Fistula Upper Arm (Right) Arterial Sitting Heart Rate Pre-Dialysis 117 BPM Sitting H eart Rate Post-Dialysis 66 BPM Temperature Pre-Dialysis 97.8 degF Temperature Post -Dialysis 97.6 degF July 24, 2022 In-Center Hemodialysis Treatment 5382-86-60Q12:54:00.000Z 2719-05-92Q03:09:23.000Z BP Sitting (Pre-Dialysis) 128/66 mmHg BP Sitting (Post-Dialysis) 127/30 mmHg Concurrent Access: falseAV Fistula Upper Arm (Right) Arterial Sitting Heart Rate Pre-Dialysis 64 BPM Sitting H eart Rate Post-Dialysis 65 BPM Temperature Pre-Dialysis 97.8 degF Temperature Post -Dialysis 97.8 degF July 22, 2022 In-Center Hemodialysis Treatment 1966-96-22Z05:45:00.000Z 5843-20-48W76:05:23.000Z BP Sitting (Pre-Dialysis) 155/76 mmHg BP Sitting (Post-Dialysis) 145/34 mmHg Concurrent Access: falseAV Fistula Upper Arm (Right) Arterial Sitting Heart Rate Pre-Dialysis 116 BPM Sitting H eart Rate Post-Dialysis 67 BPM Temperature Pre-Dialysis 97.8 degF Temperature Post -Dialysis 97.9 degF July 17, 2022 In-Center Hemodialysis Treatment 2934-33-70E51:37:00.000Z 6511-76-20G12:59:13.000Z BP Sitting (Pre-Dialysis) 143/43 mmHg BP Sitting (Post-Dialysis) 142/41 mmHg Concurrent Access: falseAV Fistula Upper Arm (Right) Arterial Sitting Heart Rate Pre-Dialysis 79 BPM Sitting H eart Rate Post-Dialysis 83 BPM Temperature Pre-Dialysis 97.3 degF Temperature Post -Dialysis 97 degF July 15, 2022 In-Center Hemodialysis Treatment 6680-25-79O57:03:00.000Z 2395-89-11B01:18:13.000Z BP Sitting (Pre-Dialysis) 112/38 mmHg BP Sitting (Post-Dialysis) 130/55 mmHg Concurrent Access: falseAV Fistula Upper Arm (Right) Arterial Sitting Heart Rate Pre-Dialysis 74 BPM Sitting H eart Rate Post-Dialysis 75 BPM Temperature Pre-Dialysis 97.8 degF Temperature Post -Dialysis 97.8 degF July 12, 2022 In-Center Hemodialysis Treatment 1307-94-88H69:48:00.000Z 8760-57-08X09:08:14.000Z BP Sitting (Pre-Dialysis) 152/84 mmHg BP Sitting (Post-Dialysis) 149/60 mmHg Concurrent Access: falseAV Fistula Upper Arm (Right) Arterial Sitting Heart Rate Pre-Dialysis 123 BPM Sitting H eart Rate Post-Dialysis 75 BPM Temperature Pre-Dialysis 97.8 degF Temperature Post -Dialysis 97.8 degF July 10, 2022 In-Center Hemodialysis Treatment 1952-10-22N52:55:00.000Z 2374-77-56C21:13:14.000Z BP Sitting (Pre-Dialysis) 109/44 mmHg BP Sitting (Post-Dialysis) 137/42 mmHg Concurrent Access: falseAV Fistula Upper Arm (Right) Arterial Sitting Heart Rate Pre-Dialysis 77 BPM Sitting H eart Rate Post-Dialysis 68 BPM Temperature Pre-Dialysis 97.8 degF Temperature Post -Dialysis 97 degF July 08, 2022 In-Center Hemodialysis Treatment 8971-13-29Y20:58:00.000Z 2999-60-07M85:15:14.000Z BP Sitting (Pre-Dialysis) 148/73 mmHg BP Sitting (Post-Dialysis) 115/49 mmHg Concurrent Access: falseAV Fistula Upper Arm (Right) Arterial Sitting Heart Rate Pre-Dialysis 75 BPM Sitting H eart Rate Post-Dialysis 83 BPM Temperature Pre-Dialysis 97 degF Temperature Post -Dialysis 98.1 degF July 05, 2022 In-Center Hemodialysis Treatment 6256-28-13Z79:24:00.000Z 7825-45-92J42:41:58.000Z BP Sitting (Pre-Dialysis) 149/62 mmHg BP Sitting (Post-Dialysis) 136/73 mmHg Concurrent Access: falseAV Fistula Upper Arm (Right) Arterial Sitting Heart Rate Pre-Dialysis 73 BPM Sitting H eart Rate Post-Dialysis 81 BPM Temperature Pre-Dialysis 97.8 degF Temperature Post -Dialysis 97 degF July 03, 2022 In-Center Hemodialysis Treatment 4353-86-91Y53:48:00.000Z 3375-16-41I74:02:07.000Z BP Sitting (Pre-Dialysis) 144/57 mmHg BP Sitting (Post-Dialysis) 120/66 mmHg Concurrent Access: falseAV Fistula Upper Arm (Right) Arterial Sitting Heart Rate Pre-Dialysis 77 BPM Sitting H eart Rate Post-Dialysis 70 BPM Temperature Pre-Dialysis 97.2 degF Temperature Post -Dialysis 97 degF July 01, 2022 In-Center Hemodialysis Treatment 3127-24-60U10:30:00.000Z 8290-10-04F25:51:15.000Z BP Sitting (Pre-Dialysis) 139/62 mmHg BP Sitting (Post-Dialysis) 104/59 mmHg Concurrent Access: falseAV Fistula Upper Arm (Right) Arterial Sitting Heart Rate Pre-Dialysis 85 BPM Sitting H eart Rate Post-Dialysis 99 BPM Temperature Pre-Dialysis 97.9 degF Temperature Post -Dialysis 97.9 degF June 28, 2022 In-Center Hemodialysis Treatment 1864-81-76B30:29:00.000Z 1006-53-26I09:30:28.000Z BP Sitting (Pre-Dialysis) 158/63 mmHg BP Sitting (Post-Dialysis) 134/60 mmHg Concurrent Access: falseAV Fistula Upper Arm (Right) Arterial Sitting Heart Rate Pre-Dialysis 77 BPM Sitting H eart Rate Post-Dialysis 80 BPM Temperature Pre-Dialysis 97.7 degF Temperature Post -Dialysis 97.3 degF June 26, 2022 In-Center Hemodialysis Treatment 7234-11-63G00:32:00.000Z 6145-14-32V87:52:28.000Z BP Sitting (Pre-Dialysis) 130/58 mmHg BP Sitting (Post-Dialysis) 113/60 mmHg Concurrent Access: falseAV Fistula Upper Arm (Right) Arterial Sitting Heart Rate Pre-Dialysis 80 BPM Sitting H eart Rate Post-Dialysis 84 BPM Temperature Pre-Dialysis 97.7 degF Temperature Post -Dialysis 98.1 degF June 24, 2022 In-Center Hemodialysis Treatment 4565-88-35E79:21:00.000Z 9099-44-51H30:37:28.000Z BP Sitting (Pre-Dialysis) 117/65 mmHg BP Sitting (Post-Dialysis) 135/61 mmHg Concurrent Access: falseAV Fistula Upper Arm (Right) Arterial Sitting Heart Rate Pre-Dialysis 91 BPM Sitting H eart Rate Post-Dialysis 90 BPM Temperature Pre-Dialysis 97.6 degF Temperature Post -Dialysis 97.9 degF June 21, 2022 In-Center Hemodialysis Treatment 9767-44-41W38:44:16.000Z 1090-34-24S87:02:16.000Z BP Sitting (Pre-Dialysis) 123/38 mmHg BP Sitting (Post-Dialysis) 91/45 mmHg Concurrent Access: falseAV Fistula Upper Arm (Right) Arterial Sitting Heart Rate Pre-Dialysis 74 BPM Sitting H eart Rate Post-Dialysis 74 BPM Temperature Pre-Dialysis 98.2 degF Temperature Post -Dialysis 97.4 degF June 19, 2022 In-Center Hemodialysis Treatment 8878-92-62F32:39:00.000Z 8654-26-35B92:59:16.000Z BP Sitting (Pre-Dialysis) 104/53 mmHg BP Sitting (Post-Dialysis) 116/46 mmHg Concurrent Access: falseAV Fistula Upper Arm (Right) Arterial Sitting Heart Rate Pre-Dialysis 81 BPM Sitting H eart Rate Post-Dialysis 89 BPM Temperature Pre-Dialysis 97.9 degF Temperature Post -Dialysis 97.8 degF June 17, 2022 In-Center Hemodialysis Treatment 6415-63-98G22:36:16.000Z 9031-84-01V44:50:16.000Z BP Sitting (Pre-Dialysis) 85/48 mmHg BP Sitting (Post-Dialysis) 149/53 mmHg Concurrent Access: falseAV Fistula Upper Arm (Right) Arterial Sitting Heart Rate Pre-Dialysis 73 BPM Sitting H eart Rate Post-Dialysis 83 BPM Temperature Pre-Dialysis 97.6 degF Temperature Post -Dialysis 97.8 degF June 14, 2022 In-Center Hemodialysis Treatment 1922-35-38Y69:30:00.000Z 9819-16-06J49:46:14.000Z BP Sitting (Pre-Dialysis) 118/57 mmHg BP Sitting (Post-Dialysis) 108/48 mmHg Concurrent Access: falseAV Fistula Upper Arm (Right) Arterial Sitting Heart Rate Pre-Dialysis 76 BPM Sitting H eart Rate Post-Dialysis 89 BPM Temperature Pre-Dialysis 97.6 degF Temperature Post -Dialysis 96.5 degF June 12, 2022 In-Center Hemodialysis Treatment 2610-93-00Y41:30:00.000Z 6384-35-21F99:47:18.000Z BP Sitting (Pre-Dialysis) 131/58 mmHg BP Sitting (Post-Dialysis) 104/41 mmHg Concurrent Access: falseAV Fistula Upper Arm (Right) Arterial Sitting Heart Rate Pre-Dialysis 69 BPM Sitting H eart Rate Post-Dialysis 86 BPM Temperature Pre-Dialysis 97.8 degF Temperature Post -Dialysis 97 degF June 10, 2022 In-Center Hemodialysis Treatment 3082-10-79D29:29:00.000Z 2166-61-98U94:45:18.000Z BP Sitting (Pre-Dialysis) 106/74 mmHg BP Sitting (Post-Dialysis) 122/52 mmHg Concurrent Access: falseAV Fistula Upper Arm (Right) Arterial Sitting Heart Rate Pre-Dialysis 62 BPM Sitting H eart Rate Post-Dialysis 87 BPM Temperature Pre-Dialysis 97.3 degF Temperature Post -Dialysis 97.7 degF June 07, 2022 In-Center Hemodialysis Treatment 7143-63-19W80:00:00.000Z 2284-48-15K24:16:27.000Z BP Sitting (Pre-Dialysis) 118/43 mmHg BP Sitting (Post-Dialysis) 166/53 mmHg Concurrent Access: falseAV Fistula Upper Arm (Right) Arterial Sitting Heart Rate Pre-Dialysis 86 BPM Sitting H eart Rate Post-Dialysis 95 BPM Temperature Pre-Dialysis 97.6 degF Temperature Post -Dialysis 97.8 degF June 05, 2022 In-Center Hemodialysis Treatment 9503-75-16Y08:10:00.000Z 5514-08-10W69:24:33.000Z BP Sitting (Pre-Dialysis) 109/58 mmHg BP Sitting (Post-Dialysis) 102/43 mmHg Concurrent Access: falseAV Fistula Upper Arm (Right) Arterial Sitting Heart Rate Pre-Dialysis 87 BPM Sitting H eart Rate Post-Dialysis 93 BPM Temperature Pre-Dialysis 97.6 degF Temperature Post -Dialysis 97.6 degF June 03, 2022 In-Center Hemodialysis Treatment 2419-41-85N12:11:00.000Z 2036-13-69A40:25:27.000Z BP Sitting (Pre-Dialysis) 121/59 mmHg BP Sitting (Post-Dialysis) 92/43 mmHg Concurrent Access: falseAV Fistula Upper Arm (Right) Arterial Sitting Heart Rate Pre-Dialysis 84 BPM Sitting H eart Rate Post-Dialysis 92 BPM Temperature Pre-Dialysis 97.6 degF Temperature Post -Dialysis 97.6 degF May 31, 2022 In-Center Hemodialysis Treatment 5990-27-97T69:02:00.000Z 6652-89-01V92:27:32.000Z BP Sitting (Pre-Dialysis) 120/58 mmHg BP Sitting (Post-Dialysis) 94/42 mmHg Concurrent Access: falseAV Fistula Upper Arm (Right) Arterial Sitting Heart Rate Pre-Dialysis 81 BPM Sitting H eart Rate Post-Dialysis 98 BPM Temperature Pre-Dialysis 97.6 degF Temperature Post -Dialysis 97.7 degF May 29, 2022 In-Center Hemodialysis Treatment 3715-93-54R91:52:00.000Z 1037-76-34X19:11:13.000Z BP Sitting (Pre-Dialysis) 139/70 mmHg BP Sitting (Post-Dialysis) 111/63 mmHg Concurrent Access: falseAV Fistula Upper Arm (Right) Arterial Sitting Heart Rate Pre-Dialysis 83 BPM Sitting H eart Rate Post-Dialysis 86 BPM Temperature Pre-Dialysis 97 degF Temperature Post -Dialysis 97 degF May 27, 2022 In-Center Hemodialysis Treatment 1840-50-92Z38:07:00.000Z 3045-04-78W58:24:10.000Z BP Sitting (Pre-Dialysis) 125/60 mmHg BP Sitting (Post-Dialysis) 109/53 mmHg Concurrent Access: falseAV Fistula Upper Arm (Right) Arterial Sitting Heart Rate Pre-Dialysis 74 BPM Sitting H eart Rate Post-Dialysis 93 BPM Temperature Pre-Dialysis 97.6 degF Temperature Post -Dialysis 97 degF DIALYSIS ORDER Dialysis Procedure Orders Type of Dialysis Procedure Order Order Date/Time Observations In-Center Hemodialysis Treatment November 03, 2024 Target Weight 95 kg Dialysate Flow Rate 500 mL/min Blood Flow Rate 250 mL/min Treatment Time 210 min(total) Max UF Rate 13 mL/kg/hr Base Sodium Dialysate Base Sodium 138 mE q/L dialysate_temp 36.5 C BiCarb Dialysate BiCarbonate 37 meq/L Access Concurrent No Arterial Access AV Graft (Upper Arm (Right)) Venous Access AV Graft (Upper Arm (Right)) Arterial Needle Display NIPROANELIP, 17 G x 1, SHARP , TWIN Venous Needle NIPRO, TULIP, 17G x 1, SHARP , TWIN Dialyzer Nipro Elisio 15H 126 4 [email or web address] Dialysate Bath Potassium Potassium 2 mEq /L Dialysate Bath Calcium Calcium 2.5 mEq/L Results Adequacy Description Draw Date Result/Unit Status Ref Range Result Comments CURRENT KRU 2024-10-12 20:02:17 F TOTAL HOURS/WEEK DIALYSIS 2024-10-12 20:02:17 10 hrs F stdKt/V (DIAL) 2024-10-12 20:02:17 N/A F stdKT/V Total 2024-10-12 20:02:17 N/A F KT/V PRESCRIBED 2024-10-12 20:02:17 1.57 F LENGTH OF DIALYSIS 2024-10-12 20:02:17 209 min F AMPUTATE FACTOR 2024-10-12 20:02:17 0 F Std Renal KT/V 2024-10-12 20:02:17 N/A F DIALYZER FLOW-QD 2024-10-12 20:02:17 500 mL/min F eKt/V 2024-10-12 20:02:17 1.52 F Dialyzer DESIRAE 2024-10-12 20:02:17 1264 Calc F TBW ([facility]) 2024-10-12 20:02:17 36.81 Liters F BLOOD FLOW-QWB 2024-10-12 20:02:17 300 F HEIGHT IN INCHES 2024-10-12 20:02:17 56 Inches F WEIGHT (KG) 2024-10-12 20:02:17 95 kg F Total Kt/V 2024-10-12 20:02:17 1.8 F spKt/V 2024-10-12 20:02:17 1.8 F BSA LG 2024-10-12 20:02:17 1.81 sq m F PATIENT AGE 2024-10-12 20:02:17 69 Years F PRESCRIBED DAYS/WEEK 2024-10-12 20:02:17 3 Day/Wk F Residual kt/v 2024-10-12 20:02:17 F URR% 2024-10-12 20:02:17 78 % F VT (KT/V TX VOL) 2024-10-12 20:02:17 27.2 L F WEIGHT - PRE DAY 1 2024-10-12 20:02:17 99 kg F VM (KT/V MEAN VOL) 2024-10-12 20:02:17 33.6 F WEIGHT - POST DAY 1 2024-10-12 20:02:17 96.1 kg F nPCR 2024-10-12 20:02:17 1.12 G/KG/D F Creatinine [Mass/volume] in Serum or Plasma 2024-10-12 15:31:25 8.96 mg/dL F 0.5-1.1 Urea nitrogen [Mass/volume] in Serum or Plasma 2024-10-12 15:31:25 67 mg/dL F 9.0-23.0 Urea nitrogen [Mass/volume] in Serum or Plasma --post dialysis 2024-10-12 13:28:16 15 mg/dL F 9.0-23.0 DIALYZER FLOW-QD 2024-09-09 16:13:18 500 mL/min F PRESCRIBED DAYS/WEEK 2024-09-09 16:13:18 3 Day/Wk F nPCR 2024-09-09 16:13:18 1.1 G/KG/D F WEIGHT (KG) 2024-09-09 16:13:18 95 kg F HEIGHT IN INCHES 2024-09-09 16:13:18 56 Inches F VT (KT/V TX VOL) 2024-09-09 16:13:18 36.8 L F BSA LG 2024-09-09 16:13:18 1.81 sq m F stdKT/V Total 2024-09-09 16:13:18 N/A F Dialyzer DESIRAE 2024-09-09 16:13:18 1264 Calc F BLOOD FLOW-QWB 2024-09-09 16:13:18 300 F Residual kt/v 2024-09-09 16:13:18 F eKt/V 2024-09-09 16:13:18 1.15 F URR% 2024-09-09 16:13:18 67 % F Std Renal KT/V 2024-09-09 16:13:18 N/A F TBW (Taylor) 2024-09-09 16:13:18 36.88 Liters F PATIENT AGE 2024-09-09 16:13:18 69 Years F WEIGHT - PRE DAY 1 2024-09-09 16:13:18 99.6 kg F stdKt/V (DIAL) 2024-09-09 16:13:18 N/A F TOTAL HOURS/WEEK DIALYSIS 2024-09-09 16:13:18 10 hrs F KT/V PRESCRIBED 2024-09-09 16:13:18 1.6 F CURRENT KRU 2024-09-09 16:13:18 F VM (KT/V MEAN VOL) 2024-09-09 16:13:18 35.8 F LENGTH OF DIALYSIS 2024-09-09 16:13:18 212 min F Total Kt/V 2024-09-09 16:13:18 1.35 F spKt/V 2024-09-09 16:13:18 1.35 F WEIGHT - POST DAY 1 2024-09-09 16:13:18 96.4 kg F AMPUTATE FACTOR 2024-09-09 16:13:18 0 F Urea nitrogen [Mass/volume] in Serum or Plasma 2024-09-09 16:11:22 54 mg/dL F 9.0-23.0 Urea nitrogen [Mass/volume] in Serum or Plasma --post dialysis 2024-09-09 16:06:25 18 mg/dL F 9.0-23.0 Creatinine [Mass/volume] in Serum or Plasma 2024-08-19 15:19:16 8.43 mg/dL F 0.5-1.1 PATIENT AGE 2024-08-12 17:06:23 69 Years F URR% 2024-08-12 17:06:23 69 % F stdKt/V (DIAL) 2024-08-12 17:06:23 N/A F eKt/V 2024-08-12 17:06:23 1.21 F KT/V PRESCRIBED 2024-08-12 17:06:23 1.59 F WEIGHT (KG) 2024-08-12 17:06:23 95 kg F Residual kt/v 2024-08-12 17:06:23 F Dialyzer DESIRAE 2024-08-12 17:06:23 1264 Calc F VM (KT/V MEAN VOL) 2024-08-12 17:06:23 35.4 F TOTAL HOURS/WEEK DIALYSIS 2024-08-12 17:06:23 10 hrs F HEIGHT IN INCHES 2024-08-12 17:06:23 56 Inches F CURRENT KRU 2024-08-12 17:06:23 F AMPUTATE FACTOR 2024-08-12 17:06:23 0 F LENGTH OF DIALYSIS 2024-08-12 17:06:23 211 min F WEIGHT - PRE DAY 1 2024-08-12 17:06:23 100.8 kg F VT (KT/V TX VOL) 2024-08-12 17:06:23 34.6 L F DIALYZER FLOW-QD 2024-08-12 17:06:23 500 mL/min F Std Renal KT/V 2024-08-12 17:06:23 N/A F PRESCRIBED DAYS/WEEK 2024-08-12 17:06:23 3 Day/Wk F nPCR 2024-08-12 17:06:23 0.91 G/KG/D F WEIGHT - POST DAY 1 2024-08-12 17:06:23 97.6 kg F Total Kt/V 2024-08-12 17:06:23 1.43 F stdKT/V Total 2024-08-12 17:06:23 N/A F TBW ([facility]) 2024-08-12 17:06:23 37.18 Liters F BSA LG 2024-08-12 17:06:23 1.81 sq m F spKt/V 2024-08-12 17:06:23 1.43 F BLOOD FLOW-QWB 2024-08-12 17:06:23 300 F Urea nitrogen [Mass/volume] in Serum or Plasma --post dialysis 2024-08-12 17:04:27 14 mg/dL F 9.0-23.0 Urea nitrogen [Mass/volume] in Serum or Plasma 2024-08-12 16:56:26 45 mg/dL F 9.0-23.0 KT/V PRESCRIBED 2023-10-23 20:55:33 1.59 F nPCR 2023-10-23 20:55:33 1.02 G/KG/D F Total Kt/V 2023-10-23 20:55:33 1.34 F VT (KT/V TX VOL) 2023-10-23 20:55:33 35 L F DIALYZER FLOW-QD 2023-10-23 20:55:33 500 mL/min F HEIGHT IN INCHES 2023-10-23 20:55:33 56 Inches F Residual kt/v 2023-10-23 20:55:33 F WEIGHT - POST DAY 1 2023-10-23 20:55:33 101.2 kg F BSA LG 2023-10-23 20:55:33 1.8 sq m F WEIGHT (KG) 2023-10-23 20:55:33 93.5 kg F Dialyzer DESIRAE 2023-10-23 20:55:33 1218 Calc F PRESCRIBED DAYS/WEEK 2023-10-23 20:55:33 3 Day/Wk F LENGTH OF DIALYSIS 2023-10-23 20:55:33 211 min F WEIGHT - PRE DAY 1 2023-10-23 20:55:33 104.3 kg F AMPUTATE FACTOR 2023-10-23 20:55:33 0 F TBW (Taylor) 2023-10-23 20:55:33 38.06 Liters F PATIENT AGE 2023-10-23 20:55:33 68 Years F CURRENT KRU 2023-10-23 20:55:33 F BLOOD FLOW-QWB 2023-10-23 20:55:33 278 F eKt/V 2023-10-23 20:55:33 1.14 F stdKt/V (DIAL) 2023-10-23 20:55:33 N/A F TOTAL HOURS/WEEK DIALYSIS 2023-10-23 20:55:33 10 hrs F stdKT/V Total 2023-10-23 20:55:33 N/A F spKt/V 2023-10-23 20:55:33 1.34 F VM (KT/V MEAN VOL) 2023-10-23 20:55:33 34.2 F Std Renal KT/V 2023-10-23 20:55:33 N/A F URR% 2023-10-23 20:55:32 67 % F Urea nitrogen [Mass/volume] in Serum or Plasma --post dialysis 2023-10-23 20:53:39 18 mg/dL F 9.0-23.0 Creatinine [Mass/volume] in Serum or Plasma 2023-10-23 19:53:44 7.62 mg/dL F 0.5-1.1 Urea nitrogen [Mass/volume] in Serum or Plasma 2023-10-23 19:53:44 54 mg/dL F 9.0-23.0 Creatinine [Mass/volume] in Serum or Plasma 2022-12-19 15:22:31 7.74 mg/dL F 0.5-1.1 VT (KT/V TX VOL) 2022-10-23 18:29:18 39.2 L F TOTAL HOURS/WEEK DIALYSIS 2022-10-23 18:29:18 9 F TBW (Taylor) 2022-10-23 18:29:18 36.02 Liters F PATIENT AGE 2022-10-23 18:29:18 67 Years F Total Kt/V 2022-10-23 18:29:18 1.23 F KT/V PRESCRIBED 2022-10-23 18:29:18 1.49 F AMPUTATE FACTOR 2022-10-23 18:29:18 0 F WEIGHT (KG) 2022-10-23 18:29:18 92 kg F Std Renal KT/V 2022-10-23 18:29:18 N/A F VM (KT/V MEAN VOL) 2022-10-23 18:29:18 36.8 F nPCR 2022-10-23 18:29:18 1.52 G/KG/D F WEIGHT - PRE DAY 1 2022-10-23 18:29:18 96 kg F Residual kt/v 2022-10-23 18:29:18 F PRESCRIBED DAYS/WEEK 2022-10-23 18:29:18 3 Day/Wk F stdKT/V Total 2022-10-23 18:29:18 N/A F spKt/V 2022-10-23 18:29:18 1.23 F DIALYZER FLOW-QD 2022-10-23 18:29:18 500 mL/min F BLOOD FLOW-QWB 2022-10-23 18:29:18 335 F URR% 2022-10-23 18:29:18 64 % F Dialyzer DESIRAE 2022-10-23 18:29:18 1218 Calc F LENGTH OF DIALYSIS 2022-10-23 18:29:18 195 min F HEIGHT IN INCHES 2022-10-23 18:29:18 56 Inches F WEIGHT - POST DAY 1 2022-10-23 18:29:18 92.9 kg F stdKt/V (DIAL) 2022-10-23 18:29:18 N/A F eKt/V 2022-10-23 18:29:18 1.04 F BSA LG 2022-10-23 18:29:18 1.79 sq m F CURRENT KRU 2022-10-23 18:29:18 F Urea nitrogen [Mass/volume] in Serum or Plasma --post dialysis 2022-10-17 16:47:12 33 mg/dL F 9.0-23.0 Creatinine [Mass/volume] in Serum or Plasma 2022-10-17 15:38:15 10.07 mg/dL F 0.5-1.1 Urea nitrogen [Mass/volume] in Serum or Plasma 2022-10-17 15:38:15 92 mg/dL F 9.0-23.0 CURRENT KRU TBW (Taylor) eKt/V VM (KT/V MEAN VOL) URR% TOTAL HOURS/WEEK DIALYSIS BLOOD FLOW-QWB WEIGHT (KG) KT/V PRESCRIBED VT (KT/V TX VOL) LENGTH OF DIALYSIS HEIGHT IN INCHES Std Renal KT/V Urea nitrogen [Mass/volume] in Serum or Plasma spKt/V Dialyzer DESIRAE WEIGHT - POST DAY 1 PRESCRIBED DAYS/WEEK nPCR AMPUTATE FACTOR DIALYZER FLOW-QD Residual kt/v stdKT/V Total PATIENT AGE Total Kt/V stdKt/V (DIAL) BSA LG WEIGHT - PRE DAY 1 nPCR VM (KT/V MEAN VOL) Urea nitrogen [Mass/volume] in Serum or Plasma stdKT/V Total spKt/V Residual kt/v eKt/V stdKt/V (DIAL) Std Renal KT/V Total Kt/V VT (KT/V TX VOL) CURRENT KRU BSA LG URR% KT/V PRESCRIBED TBW (Taylor) WEIGHT - POST DAY 1 0 kg F TOTAL HOURS/WEEK DIALYSIS 0 hrs F DIALYZER FLOW-QD 0 mL/min F AMPUTATE FACTOR 0 F Dialyzer DESIRAE 0 Calc F LENGTH OF DIALYSIS 0 min F BLOOD FLOW-QWB 0 F WEIGHT - PRE DAY 1 0 kg F PATIENT AGE 67 Years F WEIGHT (KG) 89.5 kg F PRESCRIBED DAYS/WEEK 0 Day/Wk F HEIGHT IN INCHES 56 Inches F Anemia Description Draw Date Result/Unit Status Ref Range Result Comments HCT CALC HGBX3 2024-11-04 17:09:51 27 % F 37.0-47.0 Hemoglobin [Mass/volume] in Blood 2024-11-04 17:09:15 9 g/dL F 12.0-16.0 IRON SATURATION 2024-10-12 20:53:51 25 % F 16.0-46.0 TIBC 2024-10-12 20:53:51 272 ug/dL F 250.0-425.0 Iron binding capacity.unsaturated [Mass/volume] in Serum or Plasma 2024-10-12 20:32:58 205 ug/dL F 80.0-375.0 Iron [Mass/volume] in Serum or Plasma 2024-10-12 20:32:39 67 ug/dL F 50.0-170.0 HCT CALC HGBX3 2024-10-12 15:11:50 30.3 % F 37.0-47.0 Erythrocyte distribution width [Ratio] by Automated count 2024-10-12 15:09:10 15.1 % F 11.0-15.0 MCH [Entitic mass] by Automated count 2024-10-12 15:09:10 32.2 pg F 25.9-34.2 MCHC [Mass/volume] by Automated count 2024-10-12 15:09:10 31.5 g/dL F 29.6-35.3 Hemoglobin [Mass/volume] in Blood 2024-10-12 15:09:08 10.1 g/dL F 12.0-16.0 Platelets [#/volume] in Blood by Automated count 2024-10-12 15:09:08 245 x 10^3 cells/uL F 140.0-450.0 Hematocrit [Volume Fraction] of Blood by Automated count 2024-10-12 15:09:08 32.1 % F 37.0-47.0 Erythrocytes [#/volume] in Blood by Automated count 2024-10-12 15:09:08 3.14 x 10^6 cells/uL F 3.85-5.2 MCV [Entitic volume] by Automated count 2024-10-12 15:09:08 102.3 fL F 80.0-100.0 Ferritin [Mass/volume] in Serum or Plasma 2024-10-12 13:25:28 F CANCELED - TEST CANCELED HCT CALC HGBX3 2024-09-04 15:39:42 30.6 % F 37.0-47.0 Hemoglobin [Mass/volume] in Blood 2024-09-04 15:39:10 10.2 g/dL F 12.0-16.0 IRON SATURATION 2024-08-20 07:47:32 17 % F 16.0-46.0 TIBC 2024-08-20 07:47:32 288 ug/dL F 250.0-425.0 Ferritin [Mass/volume] in Serum or Plasma 2024-08-20 07:31:00 727 ng/mL F 10.0-291.0 Iron [Mass/volume] in Serum or Plasma 2024-08-20 07:15:32 50 ug/dL F 50.0-170.0 Iron binding capacity.unsaturated [Mass/volume] in Serum or Plasma 2024-08-20 07:15:32 238 ug/dL F 80.0-375.0 HCT CALC HGBX3 2024-08-20 03:01:13 31.8 % F 37.0-47.0 Erythrocyte distribution width [Ratio] by Automated count 2024-08-20 03:00:20 15.3 % F 11.0-15.0 Hemoglobin [Mass/volume] in Blood 2024-08-20 03:00:20 10.6 g/dL F 12.0-16.0 Platelets [#/volume] in Blood by Automated count 2024-08-20 03:00:20 265 x 10^3 cells/uL F 140.0-450.0 MCH [Entitic mass] by Automated count 2024-08-20 03:00:20 32.4 pg F 25.9-34.2 MCHC [Mass/volume] by Automated count 2024-08-20 03:00:20 31.4 g/dL F 29.6-35.3 Erythrocytes [#/volume] in Blood by Automated count 2024-08-20 03:00:20 3.27 x 10^6 cells/uL F 3.85-5.2 Hematocrit [Volume Fraction] of Blood by Automated count 2024-08-20 03:00:20 33.7 % F 37.0-47.0 MCV [Entitic volume] by Automated count 2024-08-20 03:00:20 103.3 fL F 80.0-100.0 HCT CALC HGBX3 2023-12-10 05:10:16 33.6 % F 37.0-47.0 Hemoglobin [Mass/volume] in Blood 2023-12-10 05:09:46 11.2 g/dL F 12.0-16.0 Hemoglobin [Mass/volume] in Blood 2023-12-09 07:17:53 F Canceled - Specimen not received 5 days past draw date IRON SATURATION 2023-10-24 05:20:49 28 % F 16.0-46.0 TIBC 2023-10-24 05:20:49 308 ug/dL F 250.0-425.0 Iron [Mass/volume] in Serum or Plasma 2023-10-24 05:09:23 85 ug/dL F 50.0-170.0 Iron binding capacity.unsaturated [Mass/volume] in Serum or Plasma 2023-10-24 05:09:23 223 ug/dL F 80.0-375.0 Ferritin [Mass/volume] in Serum or Plasma 2023-10-24 03:50:01 774 ng/mL F 10.0-291.0 HCT CALC HGBX3 2023-10-23 18:10:09 29.4 % F 37.0-47.0 Hemoglobin [Mass/volume] in Blood 2023-10-23 18:09:51 9.8 g/dL F 12.0-16.0 Erythrocytes [#/volume] in Blood by Automated count 2023-10-23 18:09:51 2.93 x 10'6 cells/uL F 3.85-5.2 Erythrocyte distribution width [Ratio] by Automated count 2023-10-23 18:09:48 13.6 % F 11.0-15.0 Platelets [#/volume] in Blood by Automated count 2023-10-23 18:09:48 256 x 10^3 cells/uL F 140.0-450.0 MCH [Entitic mass] by Automated count 2023-10-23 18:09:48 33.4 pg F 25.9-34.2 MCHC [Mass/volume] by Automated count 2023-10-23 18:09:48 32.4 g/dL F 29.6-35.3 Hematocrit [Volume Fraction] of Blood by Automated count 2023-10-23 18:09:48 30.3 % F 37.0-47.0 MCV [Entitic volume] by Automated count 2023-10-23 18:09:48 103.2 fL F 80.0-100.0 HCT CALC HGBX3 2022-12-19 16:52:47 32.7 % F 37.0-47.0 Erythrocyte distribution width [Ratio] by Automated count 2022-12-19 16:51:57 18.3 % F 11.0-15.0 Hemoglobin [Mass/volume] in Blood 2022-12-19 16:51:57 10.9 g/dL F 12.0-16.0 Platelets [#/volume] in Blood by Automated count 2022-12-19 16:51:57 364 x 10^3 cells/uL F 140.0-450.0 MCH [Entitic mass] by Automated count 2022-12-19 16:51:57 31.3 pg F 25.9-34.2 MCHC [Mass/volume] by Automated count 2022-12-19 16:51:57 31.2 g/dL F 29.6-35.3 Erythrocytes [#/volume] in Blood by Automated count 2022-12-19 16:51:57 3.47 x 10'6 cells/uL F 3.85-5.2 Hematocrit [Volume Fraction] of Blood by Automated count 2022-12-19 16:51:57 34.8 % F 37.0-47.0 MCV [Entitic volume] by Automated count 2022-12-19 16:51:57 100.3 fL F 80.0-100.0 IRON SATURATION 2022-10-18 06:35:01 14 % F 16.0-46.0 TIBC 2022-10-18 06:35:01 284 ug/dL F 250.0-425.0 Iron [Mass/volume] in Serum or Plasma 2022-10-18 06:28:15 41 ug/dL F 50.0-170.0 Iron binding capacity.unsaturated [Mass/volume] in Serum or Plasma 2022-10-18 06:28:15 243 ug/dL F 80.0-375.0 Ferritin [Mass/volume] in Serum or Plasma 2022-10-17 16:27:14 402 ng/mL F 10.0-291.0 HCT CALC HGBX3 2022-10-17 16:14:25 36.6 % F 37.0-47.0 Erythrocyte distribution width [Ratio] by Automated count 2022-10-17 16:13:22 17.7 % F 11.0-15.0 Hemoglobin [Mass/volume] in Blood 2022-10-17 16:13:22 12.2 g/dL F 12.0-16.0 Platelets [#/volume] in Blood by Automated count 2022-10-17 16:13:22 321 x 10^3 cells/uL F 150.0-400.0 Hematocrit [Volume Fraction] of Blood by Automated count 2022-10-17 16:13:22 38.7 % F 37.0-47.0 MCV [Entitic volume] by Automated count 2022-10-17 16:13:22 98.2 fL F 80.0-100.0 MCH [Entitic mass] by Automated count 2022-10-17 16:13:20 31 pg F 27.0-31.0 MCHC [Mass/volume] by Automated count 2022-10-17 16:13:20 31.6 g/dL F 32.0-36.0 Erythrocytes [#/volume] in Blood by Automated count 2022-10-17 16:13:20 3.94 x 10'6 cells/uL F 4.2-5.4 Comorbidities Description Draw Date Result/Unit Status Ref Range Result Comments Hemoglobin A1c/Hemoglobin.total in Blood 2024-10-12 15:31:17 5.1 %A1c F 0.0-5.6 Hemoglobin A1c/Hemoglobin.total in Blood 2023-10-24 04:05:04 4.9 %A1c F 0.0-5.6 Hemoglobin A1c/Hemoglobin.total in Blood 2022-10-17 23:18:33 5.3 %A1c F 0.0-5.6 FluidBP Description Draw Date Result/Unit Status Ref Range Result Comments Sodium [Moles/volume] in Serum or Plasma 2024-10-12 20:32:39 140 mEq/L F 132.0-146.0 Sodium [Moles/volume] in Serum or Plasma 2024-08-20 07:15:32 142 mEq/L F 132.0-146.0 Sodium [Moles/volume] in Serum or Plasma 2023-10-24 05:09:23 142 mEq/L F 132.0-146.0 Sodium [Moles/volume] in Serum or Plasma 2022-12-19 15:22:31 135 mEq/L F 132.0-146.0 Sodium [Moles/volume] in Serum or Plasma 2022-10-17 15:38:15 139 mEq/L F 132.0-146.0 General Description Draw Date Result/Unit Status Ref Range Result Comments Chloride [Moles/volume] in Serum or Plasma 2024-10-12 20:32:39 99 mEq/L F 99.0-109.0 Aspartate aminotransferase [Enzymatic activity/volume] in Serum or Plasma 2024-10-12 15:31:25 23 U/L F 0.0-33.0 Alanine aminotransferase [Enzymatic activity/volume] in Serum or Plasma 2024-10-12 15:31:25 16 U/L F 10.0-49.0 Chloride [Moles/volume] in Serum or Plasma 2024-08-20 07:15:32 99 mEq/L F 99.0-109.0 Aspartate aminotransferase [Enzymatic activity/volume] in Serum or Plasma 2024-08-19 15:19:16 22 U/L F 0.0-33.0 Alanine aminotransferase [Enzymatic activity/volume] in Serum or Plasma 2024-08-19 15:19:16 15 U/L F 10.0-49.0 Chloride [Moles/volume] in Serum or Plasma 2023-10-24 05:09:23 99 mEq/L F 99.0-109.0 Aspartate aminotransferase [Enzymatic activity/volume] in Serum or Plasma 2023-10-23 19:53:44 22 U/L F 0.0-33.0 Alanine aminotransferase [Enzymatic activity/volume] in Serum or Plasma 2023-10-23 19:53:44 13 U/L F 10.0-49.0 Aluminum [Mass/volume] in Serum or Plasma 2023-10-23 18:40:57 10 ug/L F 0.0-9.0 Aspartate aminotransferase [Enzymatic activity/volume] in Serum or Plasma 2022-12-19 15:22:31 25 U/L F 0.0-33.0 Alanine aminotransferase [Enzymatic activity/volume] in Serum or Plasma 2022-12-19 15:22:31 20 U/L F 10.0-49.0 Chloride [Moles/volume] in Serum or Plasma 2022-12-19 15:22:31 92 mEq/L F 99.0-109.0 Aluminum [Mass/volume] in Serum or Plasma 2022-10-24 20:11:17 12 ug/L F 0.0-9.0 Aspartate aminotransferase [Enzymatic activity/volume] in Serum or Plasma 2022-10-17 15:38:15 21 U/L F 0.0-33.0 Alanine aminotransferase [Enzymatic activity/volume] in Serum or Plasma 2022-10-17 15:38:15 18 U/L F 10.0-49.0 Chloride [Moles/volume] in Serum or Plasma 2022-10-17 15:38:15 97 mEq/L F 99.0-109.0 InfectionVaccination Description Draw Date Result/Unit Status Ref Range Result Comments Lymphocytes/100 leukocytes in Blood by Automated count 2024-10-12 15:09:10 21.7 % F Eosinophils/100 leukocytes in Blood by Automated count 2024-10-12 15:09:10 3 % F Basophils/100 leukocytes in Blood by Automated count 2024-10-12 15:09:10 0.1 % F Neutrophils [#/volume] in Blood by Automated count 2024-10-12 15:09:10 5753 Cells/uL F 2000.0-8800.0 Leukocytes [#/volume] in Blood by Automated count 2024-10-12 15:09:10 8.2 x 10^3 cells/uL F 4.0-11.0 Lymphocytes [#/volume] in Blood by Automated count 2024-10-12 15:09:10 1786 Cells/uL F 620.0-3660.0 Neutrophils/100 leukocytes in Blood by Automated count 2024-10-12 15:09:08 69.9 % F Monocytes/100 leukocytes in Blood by Automated count 2024-10-12 15:09:08 5.3 % F Monocytes [#/volume] in Blood by Automated count 2024-10-12 15:09:08 436 Cells/uL F 0.0-1100.0 Basophils [#/volume] in Blood by Automated count 2024-10-12 15:09:08 8 Cells/uL F 0.0-400.0 Eosinophils [#/volume] in Blood by Automated count 2024-10-12 15:09:08 247 Cells/uL F 0.0-700.0 Lymphocytes/100 leukocytes in Blood by Automated count 2024-08-20 03:00:20 18.3 % F Neutrophils/100 leukocytes in Blood by Automated count 2024-08-20 03:00:20 73.6 % F Eosinophils/100 leukocytes in Blood by Automated count 2024-08-20 03:00:20 2.1 % F Monocytes/100 leukocytes in Blood by Automated count 2024-08-20 03:00:20 5.8 % F Basophils/100 leukocytes in Blood by Automated count 2024-08-20 03:00:20 0.2 % F Monocytes [#/volume] in Blood by Automated count 2024-08-20 03:00:20 476 Cells/uL F 0.0-1100.0 Basophils [#/volume] in Blood by Automated count 2024-08-20 03:00:20 16 Cells/uL F 0.0-400.0 Eosinophils [#/volume] in Blood by Automated count 2024-08-20 03:00:20 172 Cells/uL F 0.0-700.0 Neutrophils [#/volume] in Blood by Automated count 2024-08-20 03:00:20 6035 Cells/uL F 2000.0-8800.0 Leukocytes [#/volume] in Blood by Automated count 2024-08-20 03:00:20 8.2 x 10^3 cells/uL F 4.0-11.0 Lymphocytes [#/volume] in Blood by Automated count 2024-08-20 03:00:20 1501 Cells/uL F 620.0-3660.0 Monocytes [#/volume] in Blood by Automated count 2023-10-23 18:09:51 427 Cell/uL F 0.0-1100.0 Basophils [#/volume] in Blood by Automated count 2023-10-23 18:09:51 23 Cell/uL F 0.0-400.0 Eosinophils [#/volume] in Blood by Automated count 2023-10-23 18:09:51 252 Cell/uL F 0.0-700.0 Leukocytes [#/volume] in Blood by Automated count 2023-10-23 18:09:51 7.6 x 10^3 cells/uL F 4.0-11.0 Monocytes/100 leukocytes in Blood by Automated count 2023-10-23 18:09:48 5.6 % F Basophils/100 leukocytes in Blood by Automated count 2023-10-23 18:09:48 0.3 % F Eosinophils/100 leukocytes in Blood by Automated count 2023-10-23 18:09:48 3.3 % F Neutrophils/100 leukocytes in Blood by Automated count 2023-10-23 18:09:48 68.9 % F Lymphocytes/100 leukocytes in Blood by Automated count 2023-10-23 18:09:48 21.9 % F Neutrophils [#/volume] in Blood by Automated count 2023-10-23 18:09:48 5257 Cell/uL F 2000.0-8800.0 Lymphocytes [#/volume] in Blood by Automated count 2023-10-23 18:09:48 1671 Cell/uL F 620.0-3660.0 Eosinophils [#/volume] in Blood by Automated count 2022-12-19 16:51:59 221 Cell/uL F 0.0-700.0 Lymphocytes [#/volume] in Blood by Automated count 2022-12-19 16:51:59 1106 Cell/uL F 620.0-3660.0 Monocytes/100 leukocytes in Blood by Automated count 2022-12-19 16:51:57 6.8 % F Basophils/100 leukocytes in Blood by Automated count 2022-12-19 16:51:57 0.4 % F Lymphocytes/100 leukocytes in Blood by Automated count 2022-12-19 16:51:57 10 % F Neutrophils/100 leukocytes in Blood by Automated count 2022-12-19 16:51:57 80.7 % F Eosinophils/100 leukocytes in Blood by Automated count 2022-12-19 16:51:57 2 % F Monocytes [#/volume] in Blood by Automated count 2022-12-19 16:51:57 752 Cell/uL F 0.0-1100.0 Basophils [#/volume] in Blood by Automated count 2022-12-19 16:51:57 44 Cell/uL F 0.0-400.0 Neutrophils [#/volume] in Blood by Automated count 2022-12-19 16:51:57 8925 Cell/uL F 2000.0-8800.0 Leukocytes [#/volume] in Blood by Automated count 2022-12-19 16:51:57 11.1 x 10^3 cells/uL F 4.0-11.0 Lymphocytes/100 leukocytes in Blood by Automated count 2022-10-17 16:13:22 13.6 % F Eosinophils/100 leukocytes in Blood by Automated count 2022-10-17 16:13:22 1.9 % F Neutrophils/100 leukocytes in Blood by Automated count 2022-10-17 16:13:22 80.4 % F Monocytes/100 leukocytes in Blood by Automated count 2022-10-17 16:13:22 3.8 % F Basophils [#/volume] in Blood by Automated count 2022-10-17 16:13:22 38.58 Cell/uL F 0.0-400.0 Eosinophils [#/volume] in Blood by Automated count 2022-10-17 16:13:22 244.34 Cell/uL F 0.0-700.0 Lymphocytes [#/volume] in Blood by Automated count 2022-10-17 16:13:22 1748.96 Cell/uL F 1100.0-4800.0 Basophils/100 leukocytes in Blood by Automated count 2022-10-17 16:13:20 0.3 % F Monocytes [#/volume] in Blood by Automated count 2022-10-17 16:13:20 488.68 Cell/uL F 0.0-1100.0 Neutrophils [#/volume] in Blood by Automated count 2022-10-17 16:13:20 98805.4 Cell/uL F 2000.0-8800.0 Leukocytes [#/volume] in Blood by Automated count 2022-10-17 16:13:20 12.9 x 10^3 cells/uL F 4.5-11.0 MineralBone Disorder Description Draw Date Result/Unit Status Ref Range Result Comments CA CORRECTED 2024-10-12 20:57:10 9.7 mg/dL F CA*PO4 CORRCTD 2024-10-12 20:53:51 68.9 Calc F 21.0-53.0 CA/PHOS PRODUCT 2024-10-12 20:53:51 68.9 Calc F 21.0-53.0 Phosphate [Mass/volume] in Serum or Plasma 2024-10-12 20:32:39 7.1 mg/dL F 2.4-5.1 Calcium [Mass/volume] in Serum or Plasma 2024-10-12 20:32:39 9.7 mg/dL F 8.7-10.4 Alkaline phosphatase [Enzymatic activity/volume] in Serum or Plasma 2024-10-12 15:31:25 289 U/L F 46.0-116.0 25-Hydroxyvitamin D3+25-Hydroxyvitamin D2 [Mass/volume] in Serum or Plasma 2024-10-12 14:14:20 41.4 ng/mL F Parathyrin.intact [Mass/volume] in Serum or Plasma 2024-10-12 13:25:28 F CANCELED - TEST CANCELED Calcium [Mass/volume] in Serum or Plasma 2024-10-07 07:47:36 F Canceled - Specimen not received 5 days past draw date CA CORRECTED 2024-09-17 07:20:02 8.5 mg/dL F Calcium [Mass/volume] in Serum or Plasma 2024-09-17 06:47:48 8.5 mg/dL F 8.7-10.4 CA CORRECTED 2024-09-05 05:07:14 6.9 mg/dL F Calcium [Mass/volume] in Serum or Plasma 2024-09-05 04:59:22 6.9 mg/dL F 8.7-10.4 Parathyrin.intact [Mass/volume] in Serum or Plasma 2024-09-04 16:07:17 7644 pg/mL F 18.0-80.0 CA CORRECTED 2024-08-20 07:49:48 7.3 mg/dL F CA*PO4 CORRCTD 2024-08-20 07:47:32 35.8 Calc F 21.0-53.0 CA/PHOS PRODUCT 2024-08-20 07:47:32 35.8 Calc F 21.0-53.0 Phosphate [Mass/volume] in Serum or Plasma 2024-08-20 07:15:32 4.9 mg/dL F 2.4-5.1 Calcium [Mass/volume] in Serum or Plasma 2024-08-20 07:15:32 7.3 mg/dL F 8.7-10.4 Parathyrin.intact [Mass/volume] in Serum or Plasma 2024-08-19 17:38:19 5895 pg/mL F 18.0-80.0 Alkaline phosphatase [Enzymatic activity/volume] in Serum or Plasma 2024-08-19 15:19:16 310 U/L F 46.0-116.0 CA CORRECTED 2023-10-24 05:27:26 9.7 mg/dL F CA*PO4 CORRCTD 2023-10-24 05:20:49 45.6 Calc F 21.0-53.0 CA/PHOS PRODUCT 2023-10-24 05:20:49 45.6 Calc F 21.0-53.0 Calcium [Mass/volume] in Serum or Plasma 2023-10-24 05:09:23 9.7 mg/dL F 8.7-10.4 Parathyrin.intact [Mass/volume] in Serum or Plasma 2023-10-24 03:50:01 749 pg/mL F 18.0-80.0 25-Hydroxyvitamin D3+25-Hydroxyvitamin D2 [Mass/volume] in Serum or Plasma 2023-10-24 00:22:11 35.3 ng/mL F Phosphate [Mass/volume] in Serum or Plasma 2023-10-23 19:53:44 4.7 mg/dL F 2.4-5.1 Alkaline phosphatase [Enzymatic activity/volume] in Serum or Plasma 2023-10-23 19:53:44 442 U/L F 46.0-116.0 CA CORRECTED 2022-12-19 18:53:29 9.8 mg/dL F CA/PHOS PRODUCT 2022-12-19 18:50:51 36.5 Calc F 21.0-53.0 CA*PO4 CORRCTD 2022-12-19 18:50:51 37.2 Calc F 21.0-53.0 Calcium [Mass/volume] in Serum or Plasma 2022-12-19 18:49:07 9.6 mg/dL F 8.7-10.4 Parathyrin.intact [Mass/volume] in Serum or Plasma 2022-12-19 18:37:27 515 pg/mL F 18.0-80.0 Phosphate [Mass/volume] in Serum or Plasma 2022-12-19 15:22:31 3.8 mg/dL F 2.4-5.1 Alkaline phosphatase [Enzymatic activity/volume] in Serum or Plasma 2022-12-19 15:22:31 321 U/L F 46.0-116.0 CA CORRECTED 2022-10-18 11:44:34 9.6 mg/dL F CA*PO4 CORRCTD 2022-10-18 06:35:01 66.2 Calc F 21.0-53.0 CA/PHOS PRODUCT 2022-10-18 06:35:01 65.6 Calc F 21.0-53.0 Calcium [Mass/volume] in Serum or Plasma 2022-10-18 06:28:15 9.5 mg/dL F 8.7-10.4 Parathyrin.intact [Mass/volume] in Serum or Plasma 2022-10-17 16:27:14 721 pg/mL F 18.0-80.0 25-Hydroxyvitamin D3+25-Hydroxyvitamin D2 [Mass/volume] in Serum or Plasma 2022-10-17 15:43:22 21.5 ng/mL F Phosphate [Mass/volume] in Serum or Plasma 2022-10-17 15:38:15 6.9 mg/dL F 2.4-5.1 Alkaline phosphatase [Enzymatic activity/volume] in Serum or Plasma 2022-10-17 15:38:15 343 U/L F 46.0-116.0 CA CORRECTED F CA CORRECTED Calcium [Mass/volume] in Serum or Plasma Nutrition Description Draw Date Result/Unit Status Ref Range Result Comments Potassium [Moles/volume] in Serum or Plasma 2024-11-05 06:46:40 4.7 mEq/L F 3.5-5.1 Potassium [Moles/volume] in Serum or Plasma 2024-10-29 05:06:15 5 mEq/L F 3.5-5.5 Potassium [Moles/volume] in Serum or Plasma 2024-10-23 19:57:28 5.3 mEq/L F 3.5-5.5 Potassium [Moles/volume] in Serum or Plasma 2024-10-12 20:32:39 5.2 mEq/L F 3.5-5.5 VLDL-CHOL(CALC) 2024-10-12 15:32:45 24 mg/dL F 0.0-29.0 LDL-CHOLESTEROL 2024-10-12 15:32:45 45 mg/dL F 0.0-99.0 GLOBULIN 2024-10-12 15:32:45 2.6 g/dL F 0.9-5.0 A/G RATIO 2024-10-12 15:32:45 1.6 Calc F 1.0-2.5 CHOL/HDL RATIO 2024-10-12 15:32:45 1.9 Calc F 3.3-5.0 Protein [Mass/volume] in Serum or Plasma 2024-10-12 15:31:25 119 mg/dL F 0.0-149.0 Cholesterol [Mass/volume] in Serum or Plasma 2024-10-12 15:31:25 144 mg/dL F 0.0-199.0 Lactate dehydrogenase [Enzymatic activity/volume] in Serum or Plasma 2024-10-12 15:31:25 222 U/L F 120.0-246.0 Bicarbonate [Moles/volume] in Serum or Plasma 2024-10-12 15:31:25 25 mEq/L F 20.0-31.0 Albumin [Mass/volume] in Serum or Plasma by Bromocresol green (BCG) dye binding method 2024-10-12 15:31:25 4.1 g/dL F 3.4-4.8 Cholesterol in HDL [Mass/volume] in Serum or Plasma 2024-10-12 15:31:25 75 mg/dL F 40.0-60.0 Protein [Mass/volume] in Serum or Plasma 2024-10-12 15:31:25 6.7 g/dL F 5.7-8.2 Glucose [Mass/volume] in Serum or Plasma 2024-10-12 15:31:25 88 mg/dL F 70.0-99.0 Cobalamin (Vitamin B12) [Mass/volume] in Serum or Plasma 2024-10-12 14:14:20 415 pg/mL F 211.0-911.0 Potassium [Moles/volume] in Serum or Plasma 2024-09-17 06:47:48 4.7 mEq/L F 3.5-5.5 Potassium [Moles/volume] in Serum or Plasma 2024-09-10 00:12:45 4.7 mEq/L F 3.5-5.5 Potassium [Moles/volume] in Serum or Plasma 2024-09-05 04:58:42 5 mEq/L F 3.5-5.5 Potassium [Moles/volume] in Serum or Plasma 2024-08-29 03:23:20 5.1 mEq/L F 3.5-5.5 Potassium [Moles/volume] in Serum or Plasma 2024-08-20 07:15:32 4.8 mEq/L F 3.5-5.5 GLOBULIN 2024-08-19 15:20:17 2.6 g/dL F 0.9-5.0 A/G RATIO 2024-08-19 15:20:17 1.7 Calc F 1.0-2.5 Lactate dehydrogenase [Enzymatic activity/volume] in Serum or Plasma 2024-08-19 15:19:16 284 U/L F 120.0-246.0 Bicarbonate [Moles/volume] in Serum or Plasma 2024-08-19 15:19:16 29 mEq/L F 20.0-31.0 Albumin [Mass/volume] in Serum or Plasma by Bromocresol green (BCG) dye binding method 2024-08-19 15:19:16 4.3 g/dL F 3.4-4.8 Protein [Mass/volume] in Serum or Plasma 2024-08-19 15:19:16 6.9 g/dL F 5.7-8.2 Glucose [Mass/volume] in Serum or Plasma 2024-08-19 15:19:16 110 mg/dL F 70.0-99.0 Potassium [Moles/volume] in Serum or Plasma 2024-08-12 18:28:34 4.6 mEq/L F 3.5-5.5 Potassium [Moles/volume] in Serum or Plasma 2023-12-09 07:17:53 F Canceled - Specimen not received 5 days past draw date Potassium [Moles/volume] in Serum or Plasma 2023-10-24 05:09:23 5.3 mEq/L F 3.5-5.5 Cobalamin (Vitamin B12) [Mass/volume] in Serum or Plasma 2023-10-24 00:22:17 444 pg/mL F 211.0-911.0 VLDL-CHOL(CALC) 2023-10-23 19:53:59 23 mg/dL F 0.0-29.0 LDL-CHOLESTEROL 2023-10-23 19:53:59 44 mg/dL F 0.0-99.0 GLOBULIN 2023-10-23 19:53:59 2.3 g/dL F 0.9-5.0 A/G RATIO 2023-10-23 19:53:59 1.9 Calc F 1.0-2.5 CHOL/HDL RATIO 2023-10-23 19:53:59 2 Calc F 3.3-5.0 Protein [Mass/volume] in Serum or Plasma 2023-10-23 19:53:44 116 mg/dL F 0.0-149.0 Cholesterol [Mass/volume] in Serum or Plasma 2023-10-23 19:53:44 131 mg/dL F 0.0-199.0 Lactate dehydrogenase [Enzymatic activity/volume] in Serum or Plasma 2023-10-23 19:53:44 244 U/L F 120.0-246.0 Bicarbonate [Moles/volume] in Serum or Plasma 2023-10-23 19:53:44 29 mEq/L F 20.0-31.0 Albumin [Mass/volume] in Serum or Plasma by Bromocresol green (BCG) dye binding method 2023-10-23 19:53:44 4.3 g/dL F 3.4-4.8 Cholesterol in HDL [Mass/volume] in Serum or Plasma 2023-10-23 19:53:44 64 mg/dL F 40.0-60.0 Protein [Mass/volume] in Serum or Plasma 2023-10-23 19:53:44 6.6 g/dL F 5.7-8.2 Glucose [Mass/volume] in Serum or Plasma 2023-10-23 19:53:44 116 mg/dL F 70.0-99.0 GLOBULIN 2022-12-19 15:22:48 2.9 g/dL F 0.9-5.0 A/G RATIO 2022-12-19 15:22:48 1.3 Calc F 1.0-2.5 Lactate dehydrogenase [Enzymatic activity/volume] in Serum or Plasma 2022-12-19 15:22:31 317 U/L F 120.0-246.0 Bicarbonate [Moles/volume] in Serum or Plasma 2022-12-19 15:22:31 27 mEq/L F 20.0-31.0 Albumin [Mass/volume] in Serum or Plasma by Bromocresol green (BCG) dye binding method 2022-12-19 15:22:31 3.7 g/dL F 3.4-4.8 Potassium [Moles/volume] in Serum or Plasma 2022-12-19 15:22:31 4.9 mEq/L F 3.5-5.5 Protein [Mass/volume] in Serum or Plasma 2022-12-19 15:22:31 6.6 g/dL F 5.7-8.2 Glucose [Mass/volume] in Serum or Plasma 2022-12-19 15:22:31 127 mg/dL F 70.0-99.0 Cobalamin (Vitamin B12) [Mass/volume] in Serum or Plasma 2022-10-17 15:43:22 601 pg/mL F 211.0-911.0 VLDL-CHOL(CALC) 2022-10-17 15:39:26 40 mg/dL F 0.0-29.0 LDL-CHOLESTEROL 2022-10-17 15:39:26 44 mg/dL F 0.0-99.0 GLOBULIN 2022-10-17 15:39:26 2.6 g/dL F 0.9-5.0 A/G RATIO 2022-10-17 15:39:26 1.5 Calc F 1.0-2.5 CHOL/HDL RATIO 2022-10-17 15:39:26 2.8 Calc F 3.3-5.0 Lactate dehydrogenase [Enzymatic activity/volume] in Serum or Plasma 2022-10-17 15:38:17 195 U/L F 120.0-246.0 Cholesterol in HDL [Mass/volume] in Serum or Plasma 2022-10-17 15:38:17 47 mg/dL F 40.0-60.0 Protein [Mass/volume] in Serum or Plasma 2022-10-17 15:38:15 200 mg/dL F 0.0-149.0 Cholesterol [Mass/volume] in Serum or Plasma 2022-10-17 15:38:15 131 mg/dL F 0.0-199.0 Bicarbonate [Moles/volume] in Serum or Plasma 2022-10-17 15:38:15 28 mEq/L F 20.0-31.0 Albumin [Mass/volume] in Serum or Plasma by Bromocresol green (BCG) dye binding method 2022-10-17 15:38:15 3.9 g/dL F 3.4-4.8 Potassium [Moles/volume] in Serum or Plasma 2022-10-17 15:38:15 5.5 mEq/L F 3.5-5.5 Protein [Mass/volume] in Serum or Plasma 2022-10-17 15:38:15 6.5 g/dL F 5.7-8.2 Glucose [Mass/volume] in Serum or Plasma 2022-10-17 15:38:15 113 mg/dL F 70.0-99.0 Encounters No encounter information to report Immunizations Ordered Immunization Name Filled Immunization Name Date Status Comments Refusal Reason Hep B, adult 2024-10-22 12:20:00 TST-PPD intradermal 2024-03-17 10:20:13 Influenza, high-dose, quadrivalent, PF 2024-03-08 13:55:52 Hep B, adult 2023-10-31 13:45:00 Pneumococcal conjugate PCV20, polysaccharide [id number] conjugate, adjuvant, PF 2023-05-29 06:00:00 TST-PPD intradermal 2023-03-19 12:58:57 Hep B, adult 2022-11-15 15:58:11 pneumococcal polysaccharide PPV23 2022-05-29 19:31:53 Covid-19 Vaccination 2020-08-28 08:00:00 Plan of Treatment Planned Activity Provider Planned Date Details Commen ts Diagnostic Test Pending [facility] 2024-02-08 05:00:00 Hemoglobin [Mass/volume] in Blood [code = 718-7] Diagnostic Test Pending [facility] 2024-11-05 06:15:28 Ferritin [Mass/volume] in Serum or Plasma [code = 2276-4] Diagnostic Test Pending [facility] 2023-05-14 06:00:00 Potassium [Moles/volume] in Serum or Plasma [code = 2823-3] Diagnostic Test Pending [facility] 2022-06-09 06:00:00 25-Hydroxyvitamin D3+25-Hydroxyvitamin D2 [Mass/volume] in Serum or Plasma [code = 26885-4] Diagnostic Test Pending [facility] 2023-02-19 05:00:00 Alanine aminotransferase [Enzymatic activity/volume] in Serum or Plasma [code = 1742-6] Diagnostic Test Pending [facility] 2022-06-09 06:00:00 Aluminum [Mass/volume] in Serum or Plasma [code = 5574-9] Diagnostic Test Pending [facility] 2022-06-09 06:00:00 Cobalamin (Vitamin B12) [Mass/volume] in Serum or Plasma [code = 2132-9] Diagnostic Test Pending [facility] 2022-05-20 07:33:15 Parathyrin.intact [Mass/volume] in Serum or Plasma [code = 2731-8] Diagnostic Test Pending [facility] 2022-05-19 06:00:00 Potassium [Moles/volume] in Serum or Plasma [code = 2823-3] Diagnostic Test Pending [facility] 2022-05-19 06:00:00 Sodium [Moles/volume] in Serum or Plasma [code = 2951-2] Diagnostic Test Pending [facility] 2022-05-19 06:00:00 Creatinine [Mass/volume] in Serum or Plasma [code = 2160-0] Diagnostic Test Pending [facility] 2022-05-19 06:00:00 Glucose [Mass/volume] in Serum or Plasma [code = 2345-7] Diagnostic Test Pending [facility] 2024-10-07 05:00:00 Ferritin [Mass/volume] in Serum or Plasma [code = 2276-4] Diagnostic Test Pending [facility] 2022-06-09 06:00:00 Hemoglobin A1c/Hemoglobin.total in Blood [code = 4548-4] Diagnostic Test Pending [facility] 2024-11-03 10:34:59 In-Center Hemodialysis Treatment [code = FAW078] Diet Order [facility] June 28, 2022 Diet Calorie 25 kcal/kg Fluid Value 1000 mL/d Phosphorus Value 900 mg/d Potassium Value 2500 mg/d Protein Value 1.2 gm/kg Sodium Value 2000 mg/d Calculated Weight 68 kg dietary_diet_modification Carb Controlle d;
--- OUTSIDE RECORDS SUMMARY | 2024-11-08 12:08 | XMS_ITS | CONTINUITY OF CARE DOCUMENT ---
Author Name shi osullivan Address Unknown Organization [facility] Address [address] [place] [address] Phone [phone] Care Team Providers Care Mechanical Design Engineer Name Role Phone Theresa GREENE, Quentin Unavailable SHRUTHI YBARRA MD Unavailable SHRUTHI YBARRA MD Unavailable [phone] PROBLEMS Condition Status Date Provider Notes S/P [...] In-person encounter Office Visit Quentin Cardenas MD [facility] - In-person encounter Office Visit Quentin Cardenas MD [facility] - In-person encounter Office Visit Jorge Luis Alvarez MD [facility] - In-person encounter Office Visit Jorge Luis Alvraez MD [facility] Colon cancerVulvar cancer - In-person encounter Office Visit Quentin Cardenas MD [facility] Office - In-person encounter Office Visit Quentin Cardenas MD [facility] Sleep apnea - In-person encounter Office Visit Quentin Cardenas MD [facility] - In-person encounter Office Visit Quentin Cardenas MD [facility] - In-person encounter Office Visit Quentin Cardenas MD [facility] - In-person encounter Office Visit Quentin Cardenas MD [facility] - In-person encounter Office Visit Jorge Luis Alvarez MD [facility] COVID-19 asymptomatic, no exposure, testing results unknown or negative screening - In-person encounter Office Visit Quentin Cardenas MD [facility] Hx of SVT, paroxysmal - In-person encounter Office Visit Quentin Cardenas MD [facility] Office - In-person encounter Office Visit Quentin Cardenas MD [facility] HypotensionAtrial Fibrillation - In-person encounter Office Visit Quentin Cardenas MD [facility] - In-person encounter Office Visit Quentin Cardenas MD [facility] Office - In-person encounter Office Visit Jorge Luis Alvarez MD [facility] - In-person encounter Office Visit Jorge Luis Alvarez MD [facility] Snoring - In-person encounter Office Visit Quentin Cardenas MD [facility] - In-person encounter Office Visit Quentin Cardenas MD [facility] - In-person encounter Office Visit Quentin Cardenas MD [facility] - In-person encounter Office Visit Quentin Cardenas MD [facility] Shortness of breathEdema - localized - In-person encounter Office Visit Quentin Cardenas MD [facility] - In-person encounter Office Visit Quentin Cardenas MD [facility] - In-person encounter Office Visit Jorge Luis Alvarez MD [facility] - In-person encounter Office Visit Jorge Luis Alvarez MD [facility] SVT S/P ablation 05/09/16 - In-person encounter Office Visit Jorge Luis Alvarez MD [facility] VENTRICULAR TACHYCARDIACKD stage ESRD on dialysisFamily History of Hypertension:Aortic stenosisPalpitationsHx of TOBACCO ABUSE - In-person encounter Office Visit Quentin Cardenas MD [facility] - In-person encounter Office Visit Quentin Cardenas MD [facility] - In-person encounter Office Visit Quentin Cardenas MD [facility] - In-person encounter Office Visit Quentin Cardenas MD [facility] - In-person encounter Office Visit Quentin Cardenas MD [facility] Office - In-person encounter Office Visit Quentin Cardenas MD [facility] - In-person encounter Office Visit Quentin Cardenas MD [facility] CKD stage ESRD on dialysisSHORTNESS OF BREATH - In-person encounter Office Visit Quentin Cardenas MD [facility] CHEST PAIN-9/13 NUC NEG EF 75 - In-person encounter Office Visit Quentin Cardenas MD [facility] CHEST PAIN-9/13 NUC NEG EF 75 - In-person encounter Office Visit Quentin Cardenas MD [facility] CHEST PAIN-9/13 NUC NEG EF 75 - In-person encounter Office Visit Quentin Cardenas MD [facility] - In-person encounter Office Visit Quentin Cardenas MD [facility] - In-person encounter Office Visit Quentin Cardenas MD [facility] - In-person encounter Office Visit Quentin Cardenas MD [facility] - In-person encounter Office Visit Quentin Cardenas MD [facility] SVT S/P ablation 05/09/16 VITAL SIGNS [...] blood pressure, diastolic 68 mm[Hg] Ta bitha Lucas blood pressure, systolic 112 mm[Hg] Tab itha Lucas oxygen saturation, oximetry 98 % Karine Lucas pulse rate 85 /min Karine Luacs weight E&M 213.8 [lb_av] Karine Lucas respiratory rate E&M 12 /min Karine [place] height E&M 57 [in_i] Karine [place] Body Mass Index (Ratio) 47.60 kg/m2 Addy [...] hairston height E&M 57 [in_i] Nicolle Adrianuenenfkaushal [facility] Body Mass Index (Ratio) 47.17 kg/m2 Juan [...] E&M 218 [lb_av] height E&M 57 [in_i] [facility] Body Mass Index (Ratio) 37 kg/m2 Lazaro Cardenas MD blood pressure, cuff size large [facility] blood pressure, diastolic 50 mm[Hg] [facility] blood pressure, systolic 116 mm[Hg] Tab [facility] oxygen saturation, oximetry 93 % [facility] pulse rate 84 /min [facility] rate E&M 12 /min Karine Lucas weight E&M 171 [lb_av] [facility] height E&M 57 [in_i] [facility] Body Mass Index (Ratio) 46.52 kg/m2 Marian Partida blood pressure, cuff size large Ja rret blood pressure, diastolic 64 mm[Hg] Ja rret blood pressure, systolic 120 mm[Hg] Jar ret pulse rate 81 /min Truong oxygen saturation, oximetry 98 % respiratory rate E&M 16 /min Truong weight E&M 215 [lb_av] Truong [...] Mass Index (Ratio) 49.55 kg/m2 Juan A iPttman blood pressure, cuff size large Ke rri [...] blood pressure, cuff size large Ivanna espinoza [place] blood pressure, diastolic 90 mm[Hg] Ivanna espinoza [place] blood pressure, systolic 118 mm[Hg] Abrahan duong [place] oxygen saturation, oximetry 95 % Rose Cardona respiratory rate E&M 20 /min Chelsea kaushal [place] pulse rate 181 /min Rose Geovani chatterjee [...] goodwin pulse rate 84 /min Nicolle Megan [facility] weight E&M 240 [lb_av] Nicolle Smitae [facility] height E&M 57 [in_i] Nicolle Gruenenfe [facility] Body Mass Index (Ratio) 51.67 kg/m2 Lazaro [...] % Magi Jaime weight E&M 246 [lb_av] Magi Campbel l height E&M 57 [in_i] Magi Campbel l Body Mass Index (Ratio) 52.80 kg/m2 Lazaro Cardenas MD blood pressure, cuff size regular Kr isty Proctor blood pressure, diastolic 70 mm[Hg] Kr isty Proctor blood pressure, systolic 124 mm[Hg] Bobi standrea Bharat respiratory rate E&M 18 /min Tana Bharat pulse rate 67 /min Tana Proctor oxygen saturation, oximetry 97 % Tana Bharat weight E&M 244 [lb_av] Tana Bharat height E&M 57 [in_i] Tana Proctor Body Mass Index (Ratio) 52.36 kg/m2 Scott Webber blood pressure, diastolic 70 mm[Hg] Ki simónsampson Diop blood pressure, systolic 100 mm[Hg] Leann peraltan Diop oxygen saturation, oximetry 96 % Jarret Diop respiratory rate E&M 18 /min Jarret Diop pulse rate 88 /min Lyndon Diop weight E&M 242 [lb_av] Jarret Diop height E&M 57 [in_i] Lyndon Diop Body Mass Index (Ratio) 52.15 kg/m2 [...] Patricia oxygen saturation, oximetry 96 % Deysi Patircia respiratory rate E&M 18 /min Deysi Patricia [...] Nicolle Palacios respiratory rate E&M 16 /min Nioclle Satnam goodwin pulse rate 86 /min Nicolle [...] Guzman height E&M 57 [in_i] Nicolle Guzman [facility] blood pressure, diastolic 59 mm[Hg] Me roy [...] Ringby respiratory rate E&M 19 /min Tana Proctor Body Mass Index (Ratio) 53.27 kg/m2 Jack Nicholson weight E&M 246.2 [lb_av] Tana Ringby blood pressure, diastolic 61 mm[Hg] Bob Ringby blood pressure, systolic 120 mm[Hg] Alessandro Ringby pulse rate 96 /min Tana Proctor oxygen saturation, oximetry 93 % Tana Bharat respiratory rate E&M 19 /min Tana Proctor Body Mass Index (Ratio) 53.27 kg/m2 Jack ty Bharat weight E&M 246.2 [lb_av] Tana Proctor blood pressure, diastolic 63 mm[Hg] Steffany Shabazz [...] santiago Body Mass Index (Ratio) 53.23 kg/m2 Bell dipti Cartwright blood pressure, diastolic 70 mm[Hg] [...] /min Alison Schultz weight E&M 288 [lb_av] Alison Schultz blood pressure, diastolic 69 mm[Hg] Porras [...] 8 mL/min/{1. 73_m2} [facility] >=60 Low C, [place] [address] calcium, serum 9.5 mg/dL [facility] 8.5-10.3 Normal C, [place] [address] blood glucose, random 100 mg/dL [facility] 70-199 Normal C, [place] [address] creatine, serum 5.66 mg/dL [facility] 0.60-1.10 High C, [place] [address] urea nitrogen, blood 22 mg/dL [facility] 6-25 Normal C, [place] [address] anion gap, serum 13 mmol/L [facility] 2-15 Normal C, [place] [address] carbon dioxide, venous blood 33 mmol/L [facility] 22-32 High C, [place] [address] chloride, serum 97 mmol/L [facility] 97-110 Normal C, [place] [address] potassium, serum 4.5 MMOL/L [facility] 3.3-4.9 Normal , [place] [address] sodium, serum 143 mmol/L [facility] 135-145 Normal C, [place] [address] Absolute Basophils 0.0 K/CUMM [facility] 0.0-0.1 Normal , [place] [address] Absolute Monocytes 0.7 K/CUMM [facility] 0.2-0.8 Normal , [place] [address] Absolute Lymphocytes 1.3 K/CUMM [facility] 0.8-3.3 Normal , [place] [address] Absolute Neutrophils 4.9 K/CUMM [facility] 1.5-6.5 Normal , [place] [address] nucleated red blood cells as percent of [...] Rate (calc) 6 mL/min/{1. 73_m2} [facility] C, [place] [address] aspartate aminotransferase (SGOT), serum 22 1/L [facility] 10-45 Normal C, [place] [address] alanine aminotransferase (SGPT), serum 14 1/L [facility] 7-45 Normal C, [place] [address] Alkaline phosphatase 379 [facility] 40-130 High C, [place] [address] albumin, serum 4.3 g/dL [facility] 3.5-5.0 Normal C, [place] [address] protein, total, serum 7.6 g/dL [facility] 6.5-8.5 Normal C, [place] [address] bilirubin, serum, total 0.3 mg/dL [facility] 0.1-1.2 Normal C, [place] [address] calcium, serum 9.8 mg/dL [facility] 8.5-10.3 Normal C, [place] [address] blood glucose, random 81 mg/dL [facility] 70-199 Normal C, [place] [address] creatine, serum 6.96 mg/dL [facility] 0.60-1.10 High C, [place] [address] urea nitrogen, blood 44 mg/dL [facility] 6-25 High C, [place] [address] anion gap, serum 16 mmol/L [facility] 2-15 High C, [place] [address] carbon dioxide, venous blood 31 mmol/L [facility] 22-32 Normal C, [place] [address] chloride, serum 91 mmol/L [facility] 97-110 Low C, [place] [address] potassium, serum 4.6 MMOL/L [facility] 3.3-4.9 Normal C, [place] [address] sodium, serum 138 mmol/L [facility] 135-145 Normal C, [place] [address] activated partial thromboplastin time (aPTT) 27 s [facility] 28-38 Low C, [place] [address] international normalized ratio (INR) 0.95 [facility] 0.90-1.20 Normal C, [place] [address] prothrombin time (patient) 10.8 s [facility] 10.3-13.7 Normal C, [place] [address] Absolute Basophils 0.1 K/CUMM [facility] 0.0-0.1 Normal C, [place] [address] Absolute Monocytes 0.9 K/CUMM [facility] 0.2-0.8 High C, [place] [address] Absolute Lymphocytes 1.8 K/CUMM [facility] 0.8-3.3 Normal C, [place] [address] Absolute Neutrophils 6.0 K/CUMM [facility] 1.7-6.5 Normal , [place] [address] nucleated red blood cells as percent of [...] distribution width, size density 55.1 fL [facility] - immature granulocytes, percentage of total cells, blood 0.4 % [facility] - nucleated red blood cells as percent of blood leukocytes 0.0 % [facility] red blood cell (erythrocyte) count, per high power field 0.0 10*3/UL [facility] - eosinophils as percent of blood leukocytes 1.6 % [facility] - neutrophils as percent of blood leukocytes 67.1 % [facility] - Absolute Neutrophils 6.4 CELLS/UL [facility] 1.5 - 7.8 basophils as percent of blood leukocytes 0.5 % [facility] - Absolute Basophils 0.1 CELLS/UL [facility] 0.0 - 0.2 monocytes as percent of blood leukocytes 7.7 % [facility] - Absolute Monocytes 0.7 CELLS/UL [facility] 0.2 - 1.0 lymphocytes as percent of blood leukocytes 22.7 % [facility] - Absolute Lymphocytes 2.2 CELLS/UL [facility] 0.9 - 3.9 mean platelet volume 10.2 (?) [facility] - platelet count 287.0 THOUSAND/U L [facility] [...] Low activated partial thromboplastin time 25.2 SECONDS [facility] 23.0 - 33.0 platelet count 297 10*3/mm3 [facility] hematocrit, blood 40.5 % [facility] alanine aminotransferase (SGPT), serum 24 1/L [facility] aspartate aminotransferase (SGOT), serum 30 1/L [facility] creatinine, serum 2.35 mg/dL [facility] potassium, serum 4.1 mmol/L [facility] sodium, serum 145 mmol/L [facility] HISTORY OF MEDICATION USE Medication Status [...] capsule by mouth three times a day [facility] clopidogrel 75 mg tablet completed Take 1 tablet by mouth once a day - Nancy Jameson NP atorvastatin 80 mg tablet completed Take 1 tablet by mouth once a day - [facility] meloxicam 7.5 mg tablet completed Take 1 tablet by mouth once a day - Nancy Jameson NP sevelamer HCl 800 mg tablet active Take 1 tablet by mouth three times a day WITH MEALS AND WITH SNACKS Nancy Jameson NP aspirin 81 mg capsule active Take 1 capsule by mouth once a day [facility] Trelegy Ellipta 100-62.5-25 mcg blister with device active daily Nancy Jameson NP midodrine 10 mg tablet active TAKE 1 TABLET TWICE A DAY ON MON, WED, and FRI [facility] albuterol sulfate 90 mcg/actuation HFA aerosol inhaler [...] mouth once a day - Joy Ventimiglia 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 Renvela 800 mg tablet completed Take 1 [...] history of marijuana use no Ashleejackie Vasquesri HEARING AID ASSISTANT drug use no Ashleejackie Bonareri HEARING AID ASSISTANT alcohol use, average drinks per day social Ashleejackie Vasquesri HEARING AID ASSISTANT alcohol use yes Jean Bonareri HEARING AID ASSISTANT passive cigarette sm josue exposure no Jean Bonareri HEARING AID ASSISTANT smoking, year quit 1997 Jean Edgar areri HEARING AID ASSISTANT number of years as a smoker 30 a Jean Bonareri HEARING AID ASSISTANT smoking history, tot al pack/year 59 Jean Bonareri HEARING AID ASSISTANT smoking history, tot al pack/day 2 Jean Bonareri HEARING AID ASSISTANT cigarette use yes Jean Bonareri HEARING AID ASSISTANT smoking status Former smoker Jean Asifre ri HEARING AID ASSISTANT personal history of marijuana use no Nancy Jameson HEARING AID ASSISTANT drug use no Nancy Garnica r HEARING AID ASSISTANT alcohol use, average drinks per day social Nancy Garnicar HEARING AID ASSISTANT alcohol use yes Nancy Garnica r HEARING AID ASSISTANT passive cigarette sm josue exposure no Nancy Garnicar HEARING AID ASSISTANT smoking, year quit 1997 Nancy Jameson HEARING AID ASSISTANT number of years as a smoker 30 a Nancy Garnicar HEARING AID ASSISTANT smoking history, tot al pack/year 59 Nancy Garnicar HEARING AID ASSISTANT smoking history, tot al pack/day 2 Nancy Garnicar HEARING AID ASSISTANT cigarette use yes Nancy Johnson er HEARING AID ASSISTANT smoking status Former smoker Nancy Ly kelviner HEARING AID ASSISTANT Exercise counseling Yes Nancy Garnicar HEARING AID ASSISTANT personal history of marijuana use no Nancy Garnicar HEARING AID ASSISTANT drug use no Nancy Garnica r HEARING AID ASSISTANT alcohol use, average drinks per day social Nancy Garnicar HEARING AID ASSISTANT alcohol use yes Nancy Garnica r HEARING AID ASSISTANT passive cigarette sm josue exposure no Nancy Garnicar HEARING AID ASSISTANT smoking, year quit 1997 Nancy Garnicar HEARING AID ASSISTANT number of years as a smoker 30 a Nancy Garnicar HEARING AID ASSISTANT smoking history, tot al pack/year 60 Nancy Garnicar HEARING AID ASSISTANT smoking history, tot al pack/day 2 Nancy Garnicar HEARING AID ASSISTANT cigarette use yes Nancy Lykelvin er HEARING AID ASSISTANT smoking status Former smoker Nancy Ly kelviner HEARING AID ASSISTANT personal history of marijuana use no Joy Ventimiglia [facility] alcohol use, average drinks per day social Joy Ventimiglia [facility] drug use no Joy Ventimig tian [facility] alcohol use yes Joy Ventimig tian [facility] passive cigarette sm josue exposure no Joy Ventimiglia [facility] smoking, year quit 1997 Joy Ve ntimiglia [facility] number of years as a smoker 30 a Joy Ventimiglia [facility] smoking history, tot al pack/year 60 Joy Ventimiglia [facility] smoking history, tot al pack/day 2 Joy Ventimiglia [facility] cigarette use yes Joy Ventimi glia [facility] smoking status Former smoker Joy Venti miglia 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 drug use no Quentin Chatterjee alcohol use, [...] SHAWN smoking, year quit 1997 Nancy Jameson HEARING AID ASSISTANT number of years as a smoker 30 a Nancy Jameson NP smoking history, tot al pack/year 59 Nancy Jameson NP smoking history, tot al pack/day 2 Nancy Jameson HEARING AID ASSISTANT cigarette use yes Nancy coto HEARING AID ASSISTANT smoking status Former smoker Nancy prado HEARING AID ASSISTANT Exercise counseling Yes Nancy Jameson NP drug use no Joy Ventimig tian 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 alcohol use, average drinks per day social Joy Ventimiglia 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 alcohol use yes Joy Ventimig tian 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 smoking status Former smoker Joy Venti miglia [facility] social history reviewed E&M revi ewed - [...] physical exercise, frequency, days per week no Traaanirudh Tesfaye caffeine use, averag e drinks per [...] history E&M Marital Statu s: Single L lahsanda with family/friends J ob Status: Disabled Smoking [...] revi ewed - no changes required Quentin aCrdenas MD seatbelt usage 100 % Nicolle mosley [...] smoker. Tr Webber seatbelt usage 100 % [facility] m physical exercise, frequency, days per week [facility], average drinks per day none Lyndon Diop alcohol use no Lyndon caffeine use, averag e drinks per day no Lyndon drug use none Lyndon passive cigarette sm josue exposure no Lyndon smoking, year quit 1997 Jarret I ngram number of years as a smoker 30 a [facility] smoking history, tot al pack/year [facility], tot al pack/day 2 [facility] cigarette use yes [facility] smoking status Former smoker [facility] number of grandchildren Jorge Luis Webber social [...] Quentin Cardenas MD seatbelt usage 100 % Dneise Swenson physical exercise, frequency, days per week no Denise Swenson alcohol use, average drinks per day none Denise Swenson alcohol use no Denise Swenson caffeine use, averag e drinks per day no Denise Swenson drug use none Denise Swenson passive cigarette sm josue exposure no Denise Swenson smoking, year quit 1997 Denise Miguel [facility] number of years as a smoker 30 [...] pack/day 2 Nicolle Campbellmario cigarette use yes Nicolle Ordoñez lin smoking status Former smoker Nicolle [...] day none Margot Márquez alcohol use no Magrot Márquez caffeine use, averag e drinks per [...] exercise, frequency, days per week no Tana Proctor alcohol use, average drinks per day none Tana Bharat alcohol use no Tana Bharat caffeine use, averag e drinks per day no Tana Proctor drug use none Tana Proctor passive cigarette sm josue exposure no Tana Proctor smoking, year quit 1997 Tana salgado number of years as a smoker 30 a Tana Proctor smoking history, tot al pack/year 59 Tana [...] 2 Jayesh Shabazz cigarette use yes Jayesh hre smoking status Former smoker Jayesh Sandoval smoking/tobacco [...] exercise, frequency, days per week no [facility] caffeine use, averag e drinks per day no [facility] alcohol use, average drinks per day none [facility] number of years as a smoker 10 years or m ore [facility] smoking status Quit [facility] MENTAL STATUS Date Observation Value Provider [...] Policy type / Coverage type Ping red green party ID [facility] Medicaid [id number] [facility] MEDICARE ADVANTAGE [place] (PPO) Medicare [id number] ADVANCE DIRECTIVES Name Date DISCUSSED - NO DECISION MADE TREATMENT PLAN Date Name Performer [id number],C, H er updated medication list for this problem includes: Lipitor 80 Mg Tablet (Atorvastatin) ..... 1 tablet once a day Joy Ventimiglia [facility] [id number],S, Joy Venti miglia [facility] [id number],C,on HD Joy Ventimiglia [facility] [id number],C,W ill have her take increased midodrine during HD 10 mg prior and 10 mg during Joy Ventimiglia [facility] [id number],C,m ild per last echo w ill do f/u echo given known stenosis and worsening hypotension Joy Ventimiglia [facility] [id number],C,r ate regular and controlled on exam o n no AC has SHIMON closure Joy Ventimiglia [facility] [id number],S, Quentin barnett MD [id number],S, Quentin barnett MD [id number],S, Quentin barnett MD [id number],S, Quentin barnett MD [id number],S,S/P amulet. R tyler Cardenas MD [id number],SQuentin MD [id number],S, Quentin barnett MD [id number],S, Quentin barnett MD [id number],B, Quentin barnett MD [id number],W,H as R leg lymphedema following cancer surgery. Quentin Cardenas MD [id number],B, Quentin barnett MD [id number],S,B P recheck 136/62 Her updated medication list for this problem includes: Metoprolol Succinate 25 Mg Tablet Extended Release 24 Hr (Metoprolol succinate) ..... 1/2 tablet once a day Kathe Agustín ESCOBAR [id number],W,p soumya for EPS and ablation. Check pre ablation CT. Start Eliquis 5 mg po BID for one month Kathe Agustín ESCOBAR [id number],W,w eight loss encouraged. Appears fluid overloaded. Encouraged patient to keep scheduled HD appointments and if swelling gets worse over the weekend and sob worsens to go to the ED. Kathe Agustín ESCOBAR [id number],W,f luid volume management per Nephrology/HD Kathe Agustín ESCOBAR [id number],C,i n NSR today. H er updated medication list for this problem includes: Metoprolol Succinate 25 Mg Tablet Extended Release 24 Hr (Metoprolol succinate) ..... 1/2 tablet once a day Kathe Randolph NP [id number],S, Quentin barnett MD [id number],S, Quentin barnett MD [id number],S, Quentin barnett MD [id number],S, Quentin barnett MD [id number],S, Quentin barnett MD [id number],S, Quentin barnett MD [id number],S, Quentin barnett MD [id number],S, Quentin Cosme n [id number],B, Quentin Cosme n [id number],S, Quentin Cosme n [id number],S, Quentin Cosme n [id number],S, Quentin Cosme n [id number],S, Quentin Cosme n [id number],S, Quentin Cosme n [id number],S, Quentin Cosme n [id number],N,Stop metoprol ol. Check ECHO Quentin Cardenas MD [...] on days of HD, MWF Nancy Jameson HEARING AID ASSISTANT Electrophysiology:no evidence of AFIB on last 14 day telesentry monitor 07/2023. when presented to ED 10/31/23 with rapid HR, suspect SVT given that pt converted with adenosine 6mg then 12mg. EKG today SR 75. Nancy Jameson HEARING AID ASSISTANT Electrophysiology Nancy Johnson er HEARING AID ASSISTANT Cardiology:The patie nt is using CPAP on a regular basis. The patient has been benefiting from therapy and should continue use. Joyamalia Herrera [facility] Cardiology: H er updated medication list for this problem includes: Lipitor 80 Mg Tablet (Atorvastatin) ..... 1 tablet [facility] Cardiology:mild on last echo [facility] Cardiology:Recent ho spital stay for recurrent afib/SVT [...] by mouth once a day Joy Herrera [facility] Cardiology Quentin Cardenas MD Cardiology Quentin Cardenas [...] SHIMON closure 11/2022 s/p AMULET Nancy Jameson HEARING AID ASSISTANT Cardiology Nancy Jameson HEARING AID ASSISTANT Cardiology: H er updated medication list for this problem includes: Lipitor 80 Mg Tablet (Atorvastatin) ..... 1 tablet once a day Joy Ventimiglia [facility] Cardiology Joy Ventimigl ia [facility] Cardiology:on HD Joy Ventimig tian [facility] Cardiology:Will have her take increased midodrine during HD 10 mg prior and 10 mg during Joy Ventimiglia [facility] Cardiology:mild per last echo w ill do f/u echo given known stenosis and worsening hypotension Joy Ventimiglia [facility] Cardiology:rate regu lar and controlled on exam o n no AC has SHIMON closure Joy Ventimimikaelia [facility] Cardiology Quentin Cardenas MD Cardiology Quentin Cardenas [...] to go to the ED. Kathe Agustín HEARING AID ASSISTANT Electrophysiology:fl uid volume management per Nephrology/HD Kathe Agustín HEARING AID ASSISTANT Electrophysiology:in NSR today. H er updated medication [...] GREENE Cardiology:Stop metoprolol. Chec k ECHO Quentin Cardenas MD Cardiology follow up Quentin petersen MD [...] Te lesentry 02/2018 normal. Orders: Kaushal PENNY (CPT-83767) Her updated medication list for this problem [...] fo llow up:Orders: S kathryn Study Home (CPT-61020) Tr Webber Electrophysiology fo llow up:Orders: F VC - 95866 (58801) F RC - 38725 (82491) D LCO - 67492 (22725) Her updated medication list for this problem includes: Metoprolol Tartrate 25 Mg Oral Tablet (Metoprolol tartrate) ..... 1/2 pill twice a day Aspirin 81 Mg Oral Tablet (Aspirin) ..... One tab. daily Tr Webber Electrophysiology fo llow up:Orders: E KG (CPT-20276) Zack obile Cardiac Tele (CPT-40027) S [facility] [place] Followup (*) Her updated medication list for [...] ablation for SVT in 05/2016. Orders: Zack 6APT (CPT-51866) S [facility] Followup (*) Her updated medication list for this problem includes: Metoprolol Tartrate 25 Mg Oral Tablet (Metoprolol tartrate) ..... 1/2 pill twice a day Aspirin 81 Mg Oral Tablet (Aspirin) ..... One tab. daily Tr Akbar Electrophysiology fo llow up:Orders: Zack Blaze DFM Cardiac Headstrong (CPT-00235) [facility] (*) Her updated medication list for [...] MD Cardiology Hospital Follow up Ra diaz Cardeans MD Cardiology Hospital Follow up Ra diaz [...] MD EP faxed 04/16/16:Ord ers: S NOMED-CT: [id number] Current Medications Documented ([id number]) E KG (CPT-26440) E P Study w/anesthesia (*) Jorge Luis Alvarez MD EP faxed 04/16/16:Ord ers: S NOMED-CT: [id number] Current Medications Documented ([id number]) E KG (CPT-91806) E P Study w/anesthesia (*) Jorge Luis Alvarez MD Cardiology Quentin Cardenas MD Cardiology Quentin Cardenas MD Cardiology Qunetin Cardenas MD Cardiology Quentin Cardenas MD Cardiology [...] Cardenas MD Follow up Quentin Cardenas MD [facility] Quentin Cardenas MD [facility] Quentin Cardenas MD [facility] Quentin Cardenas MD [facility] Quentin Cardneas MD [facility] Quentin Cardenas MD follow up : H [...] Tabs (Bumetanide) ..... Bid Orders: Robin Terrell (CPT-06729) Quentin Cardenas MD follow up Quentin Cardenas [...] 79% which is within normal limits. - [facility] (08/18/2012) Quentin Cardenas MD hfu : T [...] 79% which is within normal limits. - [facility] (08/18/2012) Quentin Cardenas MD hfu : T [...] 79% which is within normal limits. - [facility] (08/18/2012) H CT: 40.5 (01/28/2013) Platelets: 297 (01/28/2013) C reat: 2.35 (01/28/2013) Na+: 145 (01/28/2013) K+: 4.1 (01/28/2013) O rders: S TR - Adenosine (70634) Quentin Cardenas MD hosp f/u : H [...] 79% which is within normal limits. - [facility] (08/18/2012) Quentin Cardenas MD hosp f/u : [...] 79% which is within normal limits. - [facility] (08/18/2012) Quentin Cardenas MD 6 month follow-up: H er updated medication list for this problem includes: Atenolol 25 Mg Tabs (Atenolol) ..... Daily Aspirin 325 Mg Tabs (Aspirin) ..... 1 tablet by mouth daily Lisinopril 40 Mg Tabs (Lisinopril) ..... 1 tablet by mouth daily Orders: E KG (CPT-12197) BP today: 116/64 Prior BP: 131/71 (06/18/2011) N uclear Stress Findings: Normal myocardial perfusion imaging. Normal LV EF >70%. [facility] (12/30/2008) E chocardiogram: Very technical and limited study. Patient morbidly obese. Probably normal LV systolic function with an EF of 60%. Diastolic dysfunction. [facility] (09/26/2004) Quentin Cardenas MD 6 month follow-up: [...] myocardial perfusion imaging. Normal LV EF >70%. [facility] (12/30/2008) E chocardiogram: Very technical and limited study. Patient morbidly obese. Probably normal LV systolic function with an EF of 60%. Diastolic dysfunction. [facility] (09/26/2004) Quentin Cardenas MD follow up: H er updated medication list for this problem includes: Atenolol 25 Mg Tabs (Atenolol) ..... Daily Aspirin 325 Mg Tabs (Aspirin) ..... 1 tablet by mouth daily Lisinopril 5 Mg Tabs (Lisinopril) ..... One tab. daily BP today: 131/71 Prior BP: 138/69 (12/04/2010) N uclear Stress Findings: Normal myocardial perfusion imaging. Normal LV EF >70%. [facility] (12/30/2008) E chocardiogram: Very technical and limited study. Patient morbidly obese. Probably normal LV systolic function with an EF of 60%. Diastolic dysfunction. [facility] (09/26/2004) Quentin Cardenas MD follow up: H [...] myocardial perfusion imaging. Normal LV EF >70%. [facility] (12/30/2008) E chocardiogram: Very technical and limited study. Patient morbidly obese. Probably normal LV systolic function with an EF of 60%. Diastolic dysfunction. [facility] (09/26/2004) Quentin Cardenas MD follow up: H er updated medication list for this problem includes: Atenolol 25 Mg Tabs (Atenolol) ..... Daily Aspirin 325 Mg Tabs (Aspirin) ..... 1 tablet by mouth daily Lisinopril 5 Mg Tabs (Lisinopril) ..... One tab. daily Orders: E KG (CPT-00147) BP today: 138/69 Prior BP: 133/78 (12/05/2009) N uclear Stress Findings: Normal myocardial perfusion imaging. Normal LV EF >70%. [facility] (12/30/2008) E chocardiogram: Very technical and limited study. Patient morbidly obese. Probably normal LV systolic function with an EF of 60%. Diastolic dysfunction. [facility] (09/26/2004) Quentin Cardenas MD follow up: H [...] myocardial perfusion imaging. Normal LV EF >70%. [facility] (12/30/2008) E chocardiogram: Very technical and limited study. Patient morbidly obese. Probably normal LV systolic function with an EF of 60%. Diastolic dysfunction. [facility] (09/26/2004) Quentin Cardenas MD f/u: H er updated medication list for this problem includes: Atenolol 25 Mg Tabs (Atenolol) ..... Daily Aspirin 325 Mg Tabs (Aspirin) ..... 1 tablet by mouth daily Lisinopril 5 Mg Tabs (Lisinopril) ..... One tab. daily Orders: E KG (CPT-83924) BP today: 133/78 Prior BP: 145/82 (11/01/2008) N uclear Stress Findings: Normal myocardial perfusion imaging. Normal LV EF >70%. [facility] (12/30/2008) E chocardiogram: Very technical and limited study. Patient morbidly obese. Probably normal LV systolic function with an EF of 60%. Diastolic dysfunction. [facility] (09/26/2004) Quentin Cardenas MD f/u: H er updated medication list for this problem includes: Atenolol 25 Mg Tabs (Atenolol) ..... Daily Aspirin 325 Mg Tabs (Aspirin) ..... 1 tablet by mouth daily Lasix 20 Mg Tabs (Furosemide) ..... 1 tablet by mouth daily Lisinopril 5 Mg Tabs (Lisinopril) ..... One tab. daily Orders: E KG (CPT-94291) BP today: 133/78 P rior BP: 145/82 [...] myocardial perfusion imaging. Normal LV EF >70%. [facility] (12/30/2008) E chocardiogram: Very technical and limited study. Patient morbidly obese. Probably normal LV systolic function with an EF of 60%. Diastolic dysfunction. [facility] (09/26/2004) Quentin Cardenas MD yearly nmjqgz-cl-jxn ter fxd: H er updated medication list for this problem includes: Atenolol 25 Mg Tabs (Atenolol) ..... Daily Aspirin 325 Mg Tabs (Aspirin) ..... 1 tablet by mouth daily Orders: E KG (CPT-42361) BP today: 145/82 Prior BP: / () N uclear Stress Findings: Normal resting EKG, rate 92bpm. No ST segment depression to suggest ischemia. Normal myocardial perfusion without infarct or ischemia. Normal gated study with LVEF 53%. [facility] (09/26/2004) E chocardiogram: Very technical and limited study. Patient morbidly obese. Probably normal LV systolic function with an EF of 60%. Diastolic dysfunction. [facility] (09/26/2004) Quentin Cardenas MD yearly niyjgi-ur-owr ter fxd: H er updated medication list for this problem includes: Atenolol 25 Mg Tabs (Atenolol) ..... Daily Aspirin 325 Mg Tabs (Aspirin) ..... 1 tablet by mouth daily Lasix 20 Mg Tabs (Furosemide) ..... 1 tablet by mouth daily BP today: 145/82 Quentin Cardenas MD yearly gxqubr-ur-ras ter fxd: H er updated medication list for this problem includes: Metformin Hcl 500 Mg Tabs (Metformin hcl) ..... Daily Aspirin 325 Mg Tabs (Aspirin) ..... 1 tablet by mouth daily Quentin Cardenas MD yearly ewxzpg-zg-ntr ter fxd: T he following medications were removed from the medication list: Tricor 145 Mg Tabs (Fenofibrate) ..... 1 q hs Her updated medication list for this problem includes: Lipitor 10 Mg Tabs (Atorvastatin calcium) ..... Daily Triglide 160 Mg Tabs (Fenofibrate) ..... 1 tablet by mouth daily BP today: 145/82 Prior BP: / () Quentin Cardenas MD yearly apjfme-or-byk ter fxd: H er updated medication list [...] ischemia. Normal gated study with LVEF 53%. [facility] (09/26/2004) E chocardiogram: Very technical and limited study. Patient morbidly obese. Probably normal LV systolic function with an EF of 60%. Diastolic dysfunction. [facility] (09/26/2004) Quentin Cardenas MD Date Name PROTHROMBIN [...] w/ Anesthes ia Complete Echo DLCO - 64809 FRC - 22184 FVC - 29305 Sleep Study Home Mobile Cardiac Tele Complete Echo URINALYSIS, COMPLETE PROTHROMBIN TIME WIT H INR Partial Thromboplast in Time, Activated CBC (INCLUDES DIFF/P LT) COMPREHENSIVE METABO LIC PANEL, W/EGFR Device Removal - SLH V BASIC METABOLIC PANE L W/EGFR CBC (INCLUDES DIFF/P LT) PARTIAL THROMBOPLAST IN TIME, ACTIVATED EP Study w/anesthesi a DLCO - 47726 FRC - 95682 FVC - 85298 Complete Echo Complete Echo Full PFT STR [...] santos MD completed FVC / MVV - 11907 Quentin Cardenas MD c ompleted BLOOD COUNT HEMOGLOBIN Quentin Cardenas MD completed FRC - 07320 Quentin Cardenas MD complet ed SpO2 w/o 6min walk/titration Quentin Cardenas MD completed DLCO - 84370 Quentin Cardenas MD comple arcenio Mobile Cardiac Telemetry - Tech Quentin Cardenas MD completed Mobile Cardiac Telemetry - Prof Quentin Cardenas MD completed Schedule Followup Jorge Luis hoff MD in 1 mo completed EKG Jorge Luis de los santos MD completed EKG Quentin Cardenas MD complete d SNOMED-CT: 885872903302472 Current Medications Documented Quentin Cardenas MD completed SNOMED-CT: 039886148008759 Current Medications Documented Quentin Cardenas MD completed SNOMED-CT: 520101531564432 Current Medications Documented Quentin Cardenas MD completed Loop Recorder Interrogation, Remote Russell Mock MD INTERROGATION EVALUATION REMOTE </30 D ILR SYS completed ICM Interrogation, Remote (Tech) Russell Mock MD INTERROGATION EVAL REMOTE </30 D TECH REVIEW completed SNOMED-CT: 929236986591817 Current Medications Documented Quentin Cardenas MD completed [...] REMOTE </30 D TECH REVIEW completed SNOMED-CT: 478739095503801 Current Medications Documented Quentin Cardenas MD completed [...] Luis de los santos MD completed SNOMED-CT: 799222206596233 Current Medications Documented Jorge Luis Alvarez MD completed SNOMED-CT: 38408809 Physical Exam, Performed: Pulse Exam of Foot Jorge Luis Alvarez MD completed EKG Jorge Luis de los santos MD completed SNOMED-CT: 942496006415065 Current Medications Documented Jorge Luis Alvarez MD [...] Jorge Luis wells MD completed FVC - 67927 Jorge Luis de los santos MD completed FRC - 88049 Jorge Luis de los santos MD completed DLCO - 68877 Jorge Luis de los santos MD completed SNOMED-CT: 02905162 Physical Exam, Performed: Pulse Exam of Foot Jorge Luis Alvarez MD completed EKG Jorge Luis de los santos MD completed SNOMED-CT: 196684364715048 Current Medications Documented Jorge Luis Alvarez MD completed SNOMED-CT: 755394863064790 Current Medications Documented Quentin Cardenas MD completed SNOMED-CT: 580911129462727 Current Medications Documented Quentin Cardenas MD completed Stress EKG Jorge Luis de los santos MD completed Regadenoson, 4 units Quentin Cardenas MD completed Cardiolite, 2 units Quentin Cardenas MD completed SPECT Images Roman Pastor MD complet ed EKG Quentin Cardenas MD complete d SNOMED-CT: 255680497271788 Current Medications Documented Quentin Cardenas MD completed EKG Quentin Cardenas MD complete d DLCO - 33879 Quentin Cardenas MD comple arcenio FRC - 38826 Quentin Cardenas MD complet ed FVC - 46743 Quentin Cardenas MD complet ed ePrescribe - Check t his box if eRx is used Quentin Cardenas MD completed EKG Quentin Cardenas MD complete d EKG Quentin Cardenas MD complete d EKG Quentin Cardenas MD complete d EKG Quentin Cardenas MD complete d EKG Quentin Cardenas MD complete d
--- OUTSIDE RECORDS SUMMARY | 2024-11-08 12:09 | XMS_ITS | Continuity of Care Document ---
Author Organization [facility] Address [address] [place] [address] [place] [address] Phone Care Team Providers Care Punch Machine Operator Name Role Phone Blake Valdez MD Unavailable Unavailable Advance Directives Directive Yes / No Effective Date File Name No Information Encounters Encounter Description Practice Location Reason(s) For Visit Diagnoses Date Provider Providers Copied on Encounter [facility], [address], [place], [place], [id number], [place] tel:[phone] [facility] [place] No Information [address] [facility], [address], [place], [place], [id number], [place]. tel:[phone] Family History Family Member Type Diagnosis Age At Onset No Information Payers Payer name Insurance type Covered libertarian ID Authoriza tion(s) No Information Social History [...]
--- OUTSIDE RECORDS SUMMARY | 2024-11-08 12:09 | XMS_ITS | Continuity of Care Document ---
Author Organization [facility] Address [address] [place] [address] Phone Care Team Providers Care Medical I D Sales Name Role Phone Martita GREENE MD, Luke Unavailable Unavaila ble Advance Directives Directive Yes / No Effective Date File Name No Information Encounters Encounter Description Practice Location Reason(s) For Visit Diagnoses Date Provider Providers Copied on Encounter [facility], [address] [place] [address], [id number], [place] tel:[phone] [facility] No Information 1 Martita Miguel er. [address], [address], [place], [place], [id number] , [place]. tel:[phone] Family History Family Member Type Diagnosis Age At Onset No Information Payers Payer name Insurance type Covered alliance party ID Authoriza tion(s) No Information Social [...]
== END 2024-11-08 11:53 | disposition home or self-care (01) ==
PROVIDERS: PCP Internal Medicine Infectious Disease; Visit Provider Internal Medicine Infectious Disease
DX: R09.89 Other specified symptoms and signs involving the circulatory and respiratory systems (principal)
CPT/HCPCS: 71046